=== PATIENT | male | born 1945 | race Caucasian/White ===

== ENCOUNTER 2024-10-19 23:20 | Inpatient (IN) | payer MEDICARE, SELFPAY ==
--- NOTE | ~2024-10-19 | XR_ITS ---
Portable chest x-ray Comparison: None Clinical History: Weakness Findings: Questionable minimal haziness left upper lobe. Lungs otherwise clear. Cardiomediastinal s ilhouette is unremarkable. Bones and soft tissues are unremarkable. Impression: Questionable minimal haziness left upper lobe. Correlate for possible pneumonia. Reviewed, dictated and finalized at [facility]. Impression: Questionable minimal haziness left upper lobe. Correlate for possible pneumonia .
--- NOTE | ~2024-10-19 | CT_ITS ---
CT head without contrast Indication: Altered mental status Technique: Serial scans were obtained through the brain without the administration of contrast. Dose reduction technique was used on this scan by utilizing automated exposure control and iterative recon struction technique. The dose-length product (DLP) was 756.67 mGy-cm. Findings: Questionable hyperdense left MCA sign. No parenchymal changes of acute infarct evident on t his exam. No intracranial hemorrhage or mass lesion. The ventricles and subarachnoid spaces are dila wero, consistent with mild to moderate atrophy. Low attenuation regions are seen within the periventr icular white matter bilaterally, likely representing changes from chronic microvascular ischemic dise ase. There is no evidence of edema, mass effect or midline shift. The visualized paranasal sinuses and mastoid air cells are clear. Impression: Questionable hyperdense left MCA sign. If there is concern for acute infarct, then CT angiogram or MR would be recommended for further evaluation. Correlate with clinical signs/symptoms. Atrophy and chronic white matter changes, as above. Reviewed, dictated and finalized at location . Impression: Questionable hyperdense left MCA sign. If there is concern for acute infarct, t hen CT angiogram or MR would be recommended for further evaluation. Correlate w ith clinical signs/symptoms. Atrophy and chronic white matter changes, as above.
--- NOTE | ~2024-10-19 | XR_ITS ---
Portable chest x-ray Comparison: 10/20/2024 Clinical History: Abnormal breathing Findings: There is mild interstitial prominence. No consolidation, effusion, or pneumothorax. Cardi omediastinal silhouette is stable. Bones and soft tissues are unremarkable. Impression: Mild diffuse interstitial prominence. Correlate for chronic interstitial disease or COPD change, vers us possibly mild interstitial edema. Reviewed, dictated and finalized at location . Impression: Mild diffuse interstitial prominence. Correlate for chronic interstitial diseas e or COPD change, versus possibly mild interstitial edema.
--- NOTE | ~2024-10-19 | US_ITS ---
EXAMINATION: US carotid duplex BI DATE: 10/20/2024 16:21 INDICATION: Cerebrovascular disease TECHNIQUE: Grayscale, color Doppler, and pulsed Doppler images of the cervical carotid arteries were obtained. The degree of vessel stenosis is placed in one of the following categories: normal, <50%, 5 0-69%, >=70% but less than near-occlusion, near-occlusion, or total occlusion. Note that percent sten osis relative to normal distal artery lumen diameter is indirectly measured from velocity measurement s as described by Chet, et al. Radiology 2003; [id number]:[id number]. Notes: Normal: Peak systolic velocity <125 centimeters/sec and no plaque <50%. Peak systolic velocity <125 ( EDV <40; ICA/CCA PSV ratio <2.0; used these factors only a tandem lesions or low cardiac output or co ntralateral disease) 50-69 %: PSV 125-230 (EDV 40-100; ratio 2-4) >= 70% but less than near occlusion: PSV greater than 230 (EDV > 100; ratio> 4.0) Near Occlusion: PSV that is variable; markedly narrowed lumen Occlusion: Absent flow on color/spectral Doppler and no lumen on noble scale. COMPARISON: None. FINDINGS: RIGHT: The right common carotid artery (CCA) peak systolic velocity (PSV) is 42 cm/s. The right internal car otid artery (ICA) PSV is 67 cm/s. The right ICA end-diastolic velocity (EDV) is 13 cm/s. The right IC A/CCA PSV ratio is 1.6. The external carotid artery (ECA) PSV is 125 cm/s. There is antegrade flow in the right vertebral artery. LEFT: The left CCA PSV is 52 cm/s. The left ICA PSV is 81 cm/s. The left ICA EDV is 14 cm/s. The left ICA/C CA PSV ratio is 1.5. The ECA PSV is 85 cm/s. There is antegrade flow in the left vertebral artery. IMPRESSION: 1. Less than 50% stenosis in the right internal carotid artery by sonographic criteria. 2. Less than 50% stenosis in the left internal carotid artery by sonographic criteria. Reviewed, dictated and finalized at location B. IMPRESSION: 1. Less than 50% stenosis in the right internal carotid artery by sonographic ana m antunez. 2. Less than 50% stenosis in the left internal carotid artery by sonographic kd santana.
--- NOTE | ~2024-10-19 | XR_ITS ---
Left wrist Technique: PA, oblique, lateral, and ulnar deviation views were obtained. Clinical History: Pain Findings: No acute fracture or dislocation is seen. Osseous alignment is anatomic. There is mild dege nerative changes at triscaphe joint and first CMC joint. Soft tissues are unremarkable. Impression: Mild degenerative change, as above. Reviewed, dictated and finalized at location . Impression: Mild degenerative change, as above.
--- NOTE | ~2024-10-19 | US_ITS ---
EXAMINATION: US renal BI DATE: 10/27/2024 19:49 INDICATION: BPH? TECHNIQUE: Multiple grayscale and Doppler ultrasound images of the kidneys were obtained. COMPARISON: None. FINDINGS: The right kidney measures 11.1 x 5.4 x 5.5 cm. The left kidney measures 11.1 x 6.4 x 6.0 cm. The kidn eys demonstrate normal parenchymal echogenicity. There is no hydronephrosis. The bladder is partially distended. Mendoza catheter in place. Prostate not well-visualized. IMPRESSION: Prostate not well visualized. Unremarkable renal sonogram findings. Reviewed, dictated and finalized at location K.
[2024-10-19 23:24] VITALS: BP 125/80; PULSE 79; RESP 16; TEMP 36.8; O2SAT 99
--- OUTSIDE RECORDS SUMMARY | 2024-10-20 01:28 | XMS_ITS | Encounter Summary ---
Author Organization [facility] Address [facility] [place] [address] Care Team Providers Care Aircraft Systems Technician Name Role Phone De Martines MD Primary Care Provider Unavailab emani Simpson MD, Evre Unavailable [phone] Mirza Sepulveda MD Unavailable [phone] Froylan Galvan MD Unavailable UnavailEvelyn Spicer NP Unavailable Unavailable Hernandez Martines MD Primary Care Provider [phone] Reason for Referral * (Routine) - Canceled Specialty Diagnoses / Procedures Referred By Contac t Referred To Contact Procedures OT eval and treat OT eval [place] [address] Phone: tel: fax: Referral ID Status Reason Start Date Expiration Date V isits Requested Visits Authorized [id number] Canceled 10/14/2024 10/14/2025 1 1 * (Routine) - Canceled Specialty Diagnoses / Procedures Referred By Contac t Referred To Contact Procedures PT eval and treat PT eval and treat [place] [address] Phone: tel: fax:[phone] Referral ID Status Reason Start Date Expiration Date V isits Requested Visits Authorized [id number] Canceled 10/14/2024 10/14/2025 1 1 Reason for Visit * Auth/Cert (Routine) Specialty Diagnoses / Procedures Referred By Contac t Referred To Contact Diagnoses Atrial fibrillation with RVR (CMS/HCC HHS/HCC) AFIB with RVR Procedures N/A Johan Oh MD [address] [place] [address] Phone: tel:[phone] fax: Referral ID Status Reason Start Date Expiration Date Visits Re quested Visits Authorized [id number] 1 1 Encounter Details Date Type Department Care Team (Late st Contact Info) Description 10/14/2024 12:58 PM CDT - 10/19/2024 9:13 PM CDT Hospital Encounter [facility] [place] [address] Johan Oh MD [address] [place] [address] [phone] (Work) Bhakti [place] [address] [phone] (Work) Irene Barrios MD [address] [place], [place] [id number] [phone] (Work) Discharge Disposition: Home with Home Health Care Social History Tobacco Use Types Packs/Day Years Used Date Smoking Tobacco: Former Smokeless Tobacco: Former Chew Alcohol Use Standard Drinks/Week Comments No 0 (1 standard drink = 0.6 oz pur e alcohol) Quit drinking in 1990 [facility] Utilities Answer Date Recorded In the past 12 months has e Dad[employer]hed, gas, oil, or water [employer] threatened to shut off services in your home? No 10/14/2024 Humiliation, Afraid, Rape, a nd Kick questionnaire Answer Date Recorded Within the last year, have y ou been afraid of your partner or ex-partner? Patient unable to answer 10/14/2024 Within the last year, have y ou been humiliated or emotionally abused in other ways by your partner or ex-partner? Patient unable to answer 10/14/2024 Within the last year, have y ou been kicked, hit, slapped, or otherwise physically hurt by your partner or ex-partner? Patient unable to answer 10/14/2024 Within the last year, have y ou been raped or forced to have any kind of sexual activity by your partner or ex-partner? Patient unable to answer 10/14/2024 Overall Financial Resource Strain (CARDIA) Answe r Date Recorded How hard is it for you to pa y for the very basics like food, housing, medical care, and heating? Not hard at all 10/14/2024 Hunger Vital Sign Answer Date Recorded Within the past 12 months, y ou worried that your food would run out before you got the money to buy more. Never true 10/15/19 25 Within the past 12 months, t he food you bought just didn't last and you didn't have money to get more. Never true 10/14/2024 PRAPARE - Transportation Answer Date Re corded In the past 12 months, has l ack of transportation kept you from medical appointments or from getting medications? No 02/2025 In the past 12 months, has l ack of transportation kept you from meetings, work, or from getting things needed for daily living? No 10/14/2024 Housing Stability Vital Sign Answer Afvian e Recorded In the last 12 months, was t here a time when you were not able to pay the mortgage or rent on time? No 10/14/2024 In the past 12 months, how m any times have you moved where you were living? 0 10/14/2024 At any time in the past [address] [facility], were you homeless or living in a half-way (including now)? No 10/14/2024 Sex and Gender Information Value Date Recorded Sex Assigned at Male 10/14/2024 1:18 PM CDT Legal Sex Male 6:56 PM CDT Gender Identity Not on file Sexual Orientation Not on file documented as of this encounter Last Filed Vital Signs Vital Sign Reading Time Taken Comments Blood Pressure 118/72 10/19/2024 7:00 PM CDT Pulse 92 10/19/2024 7:00 PM CDT Temperature 37.1 C (98.8 F) 10/19/2024 7:00 PM CDT Respiratory Rate 20 10/19/2024 7:00 PM CDT Oxygen Saturation 98% 10/19/2024 7:00 PM CDT Inhaled Oxygen Concentration - - Weight 93.9 kg (207 lb 0.2 oz) 10/19/2024 3:54 A M CDT Height 179.1 cm (5' 10.5 ) 10/16/2024 7:51 AM CD T Body Mass Index 29.28 10/16/2024 7:51 AM CDT documented in this encounter Functional Status * Question Answer Date of Assessment Author Status Do you have serious difficulty walking or climbing stairs? Yes 10/14/2024 2:09 PM CDT Luci Hurtado RN Ac tive * Question Answer Date of Assessment Author Status Do you have difficulty dressing or bathing? Yes 10/14/2024 2:09 PM CDT Luci Hurtado R N Active Because of a physical, mental, or emotional condition, do you have difficulty doing errands alone such as visiting a doctor's office or shopping? Yes 10/14/2024 2:09 PM CDT Luci Hurtado RN Act yolanda * Intimate Partner Violence Question Answer Date of Assessment Author Status Within the last year, have you been humiliated or emotionally abused in other ways by your partner or ex-partner? Patient unable to answer 10/14/2024 2:19 PM Luci Luong RN Active Within the last year, have you been afraid of your partner or ex-partner? Patient unable to answer 10/14/2024 2:19 PM Luci Luong RN Active Within the last year, have you been raped or forced to have any kind of sexual activity by your partner or ex-partner? Patient unable to answer 10/14/2024 2:19 PM CDT Hurtado, Luci L, RN Active Within the last year, have you been kicked, hit, slapped, or otherwise physically hurt by your partner or ex-partner? Patient unable to answer 10/14/2024 2:19 PM Luci Luong RN Active * Are you deaf or do you have serious difficulty hearing Answer Date of Assessment Author Status Yes 10/14/2024 2:09 PM Luci Luong RN Active * Are you blind or do you have serious difficulty seeing, even when wearing glasses? Answer Date of Assessment Author Status No 10/14/2024 2:09 PM Luci Luong RN Active * Do you have serious difficulty walking or climbing stairs? Answer Date of Assessment Author Status Yes 10/14/2024 2:09 PM Luci Luong RN Active * Do you have difficulty dressing or bathing? Answer Date of Assessment Author Status Yes 10/14/2024 2:09 PM Luci Luong RN Active * Because of a physical, mental, or emotional condition, do you have difficulty doing errands alone such as visiting a doctor's office or shopping? Answer Date of Assessment Author Status Yes 10/14/2024 2:09 PM Luci Luong RN Active * Question Answer Date of Assessment Author Status Are you deaf or do you have serious difficulty hearing Yes 10/14/2024 2:09 PM Luci Luong RN Act yolanda Are you blind or do you have serious difficulty seeing, even when wearing glasses? No 10/14/2024 2:09 PM Luci Luong RN Act yolanda * Calculated C-SSRS Risk Score (Lifetime/Recent) Answer Date of Assessment Author Status No Risk Indicated 10/14/2024 2:15 PM Willian Luong RN Active * [place] Suicide Severity Rating Scale (Screener/Recent Self-Report) Question Answer Date of Assessment Author Status 1. Wish to be (Past 1 Month) No 10/14/2024 2:15 PM Luci Luong RN Act yolanda 2. Non-Specific Active Suicidal Thoughts (Past 1 Month) No 10/14/2024 2:15 PM Luci Luong RN Act yolanda 6. Suicidal Behavior (Lifetime) No 10/14/2024 2:15 PM CDT Luci Hurtado RN Act yolanda documented as of this encounter Mental Status * Question Answer Entry Date Author Status Because of a physical, mental, or emotional condition, do you have serious difficulty concentrating, remembering, or making decisions? Yes 10/14/2024 2:09 PM CDT Luci Hurtado R N Active * Because of a physical, mental, or emotional condition, do you have serious difficulty concentrating, remembering, or making decisions? Answer Entry Date Author Status Yes 10/14/2024 2:09 PM CDT Luci Hurtado RN Active documented in this encounter Discharge Instructions * Attachments The following attachments cannot be sent through Care Everywhere. * Heart Failure Discharge Instructions, Adult (Bur[place]ian) * Atrial Fibrillation Discharge Instructions ([place]ian) documented in this encounter Medications at Time of Discharge digoxin (LANOXIN) 0.125 MG tabletIndication s:a fib Take 1 tablet (0.125 mg total) by mouth daily. Indications: a fib 30 tablet 10/20/2024 donepezil (ARICEPT) 10 MG TabIndications:d ementia Take 1 tablet (10 mg total) by mouth daily for 30 days. Indications: dementia 30 tablet 10/19/2024 5 furosemide (LASIX) 40 MG tabletIndication s:CHF Take 1 tablet (40 mg total) by mouth daily for 30 days. Indications: CHF 30 tablet 10/20/2024 5 metoprolol tartrate (LOPRESSOR) 100 MG tabletIndication s:chf; HTN, A fib Take 1 tablet (100 mg total) by mouth 2 (two) times daily for 30 days. Indications: chf; HTN, A fib 60 tablet 10/19/2024 5 QUEtiapine (SEROQUEL) 25 MG tabletIndication s:dementia Take 1 tablet (25 mg total) by mouth nightly at bedtime for 30 days. Indications: dementia 30 tablet 10/19/2024 5 spironolactone (ALDACTONE) 25 MG tabletIndication s:chf Take 1 tablet (25 mg total) by mouth daily for 30 days. Indications: chf 30 tablet 10/20/2024 5 tamsulosin (FLOMAX) 0.4 MG CapIndications:u rinary retention Take 1 capsule (0.4 mg total) by mouth nightly for 30 days. Indications: urinary retention 30 capsule 10/19/2024 documented as of this encounter Progress Notes * Regan Mitchell RN - 10/19/2024 9:09 PM CDT EMS arrived. Patient discharged. [id number]-yo-[id number] informed. * Irene Barrios MD - 10/19/2024 10:43 AM CDT Hospitalist Daily Progress Note Subjective Patient seen and evaluated earlier this morning. Patient is alert and oriented to himself and year answers yes or no questions but is hard of hearing. Sodium 132, white cell count down to 7.97. Patient denies any pain currently or shortness of breath. Objective Filed Vitals: 10/18/24 1954 10/18/24 2313 10/19/24 0354 10/19/24 0821 BP: 117/84 124/83 132/80 114/83 Pulse: 94 74 83 95 Resp: 17 18 18 10 Temp: 99.5 ??F (37.5 ??C) 98.2 ??F (36.8 ??C) 98 ??F (36.7 ??C) 97.7 ??F (36.5 ??C) TempSrc: Oral Axillary Oral Oral SpO2: 97% 91% 91% 95% Weight: 93.9 kg (207 lb 0.2 oz) Height: Physical Exam: -GENERAL: No acute distress, breathing comfortably on room air. -EYES: Extraocular movements intact -ENT: Neck supple, Septum is midline. -LUNG: Clear to auscultation bilaterally, No wheezes, No crackles on room air -CVS: Regular rate rhythm, S1 and S2 normal -ABDOMEN: Soft, nondistended, Nontender, Bowel sounds observed -EXT: decreasing edema and erythema, left parks wound improved -NEURO: Alert, awake, oriented x2 to self and year, hard of hearing, sensation intact, motor 5/5 Intake/Output 24H Total: Intake/Output Summary (Last 24 hours) at 10/19/2024 1043 Last data filed at 10/19/2024 0942 Gross per 24 hour Intake 340 ml Output 3300 ml Net -2960 ml Medication digoxin 0.125 mg Oral Daily donepezil 10 mg Oral Daily furosemide 40 mg Oral Daily heparin (porcine) 5,000 Units Subcutaneous BID metoprolol tartrate 100 mg Oral BID QUEtiapine 25 mg Oral Nightly at bedtime senna-docusate 1 tablet Oral Nightly at bedtime spironolactone 25 mg Oral Daily tamsulosin 0.4 mg Oral nightly acetaminophen, albuterol sulfate HFA, ondansetron, polyethylene glycol Labs: Recent Labs Lab 10/14/24 1411 10/15/24 0612 10/16/24 0700 10/17/24 0644 10/18/24 0641 10/19/24 0647 WBC 11.59* 10.71 8.96 8.22 10.05 7.97 RBC 5.71 5.46 5.40 5.72 5.93 6.14* HGB 16.5 15.7 15.7 16.2 16.9 17.4 HCT 49.7 46.6 46.4 47.9 49.9 52.0 MCV 87.0 85.3 85.9 83.7 84.1 84.7 MCH 28.9 28.8 29.1 28.3 28.5 28.3 MCHC 33.2 33.7 33.8 33.8 33.9 33.5 PLT 189 171 182 209 254 271 RDW 15.0* 15.0* 14.7* 14.6* 14.5 14.6* MPV 10.5 10.9 10.2 10.5 10.2 10.3 PERNEU 80.1 75.2 72.1 69.2 68.7 65.0 PERLYM 8.5 11.8 12.8 14.7 14.6 16.4 PERMON 10.2 10.7 12.3 12.8 14.4 14.9 NEUC 9.27* 8.06* 6.46 5.69 6.90 5.17 LYMC 0.99* 1.26 1.15 1.21 1.47 1.31 MONOC 1.18* 1.15* 1.10* 1.05* 1.45* 1.19* EOSC 0.04 0.15 0.16 0.18 0.14 0.20 BASOC 0.04 0.04 0.03 0.05 0.06 0.05 DTYPE AUTOMATED DIFFERENTIAL AUTOMATED DIFFERENTIAL AUTOMATED DIFFERENTIAL AUTOMATED DIFFERENTIAL AUTOMATED DIFFERENTIAL AUTOMATED DIFFERENTIAL Recent Labs Lab 10/14/24 1411 10/15/24 0612 10/16/24 0700 10/17/24 0644 10/18/24 0641 10/19/24 0647 NA 135* 134* 136 131* 128* 132* K 3.6 3.4* 4.0 4.1 4.3 4.3 CL 96* 99 102 99 96* 100 CO2 31.5 26.4 27.1 25.3 25.8 26.9 AGAP 7.5 8.6 6.9 6.7 6.2 5.1 BUN 21* 24* 19* 19* 22* 21* CR 1.22 1.13 0.92 0.82 0.90 0.76 BUNCREATININ 17.2 21.2 20.6 23.2 24.6 27.6* GLU 122* 121* 110* 110* 116* 113* CA 8.4* 8.7 8.4* 8.3* 8.5 8.6 TP 6.4 6.0* 5.7* 6.0* -- 6.2* ALB 3.0* 2.7* 2.4* 2.3* -- 2.4* TBIL 3.8* 2.9* 2.9* 2.8* -- 1.4* ALKP 50 43* 43* 48* -- 71 AST 34 22 18 20 -- 21 ALT 21 18 17 19 -- 21 Recent Labs Lab 10/14/24 1411 10/15/24 0612 CHOL -- 100 TRI -- 76 HDL -- 31* LDL -- 54 HGBA1C -- 5.2 TSH 1.280 -- No results for input(s): APTT , INR , PTT in the last 168 hours. Recent Labs Lab 10/14/24 1411 10/14/24 1935 TROP 143* 283* Recent Labs Lab 10/14/24 1406 10/18/24 0641 10/19/24 0647 PROCT 0.08 <0.05 <0.05 No results for input(s): PH , PCO2 , PO2 , [id number] , BICARBWB , BASEDEFICIT , BASEEXCESS in the last 168 hours. No results found for this or any previous visit. X-Ray Radiology Results (Last 30 days) 10/14/24 1511 XR CHEST PORTABLE Final result Impression: IMPRESSION: CHF Ordered By: LLOYD CHILD Interpreted By: Girish Ovalle MD, 10/14/2024 3:15 PM Assessment & Plan: Atrial fibrillation with RVR Prior h/o pAF. Has consistently refused anticoagulation Unable to find EKG from OSH, he received metoprolol and diltiazem. Cardiology consulted. Recs appreciated. BB resumed Monitor on tele. -10/18: HR stable now. Now on digoxin 0.125 mg p.o. daily metoprolol 100 mg twice daily, switched from IV Lasix to oral Lasix today, cardiology/EP signed off -10/19: Heart rate stable now. On oral Lasix and oral metoprolol and oral digoxin. Cardiology/EP signed off and cleared for discharge. Acute on chronic HFrEF Patient appeared euvolemic on admission, but c/f CHF at OSH. OSH: Pro-BNP 3960 CXR 10/13 pulmonary edema vs PNA increased b/l pleural effusions. Cardiology consulted as above Continue IV Lasix. Monitor BMP Strict I/O and daily weights -10/18: HR stable now. Now on digoxin 0.125 mg p.o. daily metoprolol 100 mg twice daily, switched from IV Lasix to oral Lasix today, cardiology/EP signed off -10/19: Heart rate stable now. On oral Lasix and oral metoprolol and oral digoxin. Cardiology/EP signed off and cleared for discharge. NSTEMI type 2 Cardiology consulted 2/2 above Tele -10/18: HR stable now. Now on digoxin 0.125 mg p.o. daily metoprolol 100 mg twice daily, switched from IV Lasix to oral Lasix today, cardiology/EP signed off -10/19: Heart rate stable now. On oral Lasix and oral metoprolol and oral digoxin. Cardiology/EP signed off and cleared for discharge. SIRS Possible cellulitis vs PNA MRSA screen negative Last doses of doxycycline, IV Zosyn this morning, day 5 out of 5 today. Monitor for toxicity No further temperature elevations Wound care Improved Acute metabolic encephalopathy History of dementia 2/2 above Patient needed haldol and ativan at OSH CT head and C-spine imaging at outside facility negative for any acute abnormality but did show evidence of mild chronic microangiopathic gliosis Reorient as needed Seroquel started. Monitor Per family dementia is worsening. Continue home meds. Outpatient workup and follow-up with primary care physician and [facility] neurology as outpatient ?possible PNA OSH CXR with pulmonary edema vs PNA. Received vanc and Zosyn at OSH to cover for HCAP. As above Supportive care with expectorants and antitussives Sputum culture if able IS/acapella Last doses of doxycycline, IV Zosyn this morning, day 5 out of 5 today. Improved, procalcitonin negative Hyperbilirubinemia Mostly indirect hyperbilirubinemia Likely 2/2 congestive hepatopathy Initially bilirubin 3.8, now trended down all the way down to 1.4 Improving Monitor Acute on chronic hyponatremia Monitor with diuresis Now switching from IV Lasix to p.o. Lasix today -10/18: Sodium 128 -10/19: After switching to oral Lasix, sodium back up to 132 monitor Left radial fracture Placed in splint at OSH. Will need ortho referral outpatient. Pain control PRN. Frequent falls May need placement PT/OT eval Thoracic aortic aneurysm Per last CTA in 2020 measuring 4.1 cm Dementia Per family worsening. Continue home meds. Outpatient workup and follow-up with primary care physician and [facility] and neurology as outpatient Urinary retention Noted at OSH Continue Arias cath Start Flomax Consider voiding trial in 1 week as outpatient with urology Hypokalemia Potassium now 4.3 Monitor Other chronic conditions which adds to complexity of care: anxiety, anxiety, BPH, asthma, GERD. Continue home medications unless otherwise indicated. SDOH that would limit/prevent patient from receiving appropriate care/follow-up: Rural living VTE ppx: Heparin sq Code status: Full Surrogate decision maker/POA: Son Disposition: Medically stable for discharge today with instructions to follow-up with primary care physician as outpatient later on this week as well as outpatient follow-up with urology within 1 to 2 weeks for voiding trial and urinary retention evaluation as well as Outpatient workup and follow-up with primary care physician and [facility] and neurology as outpatient. SW/CM working on final disposition, possible home health care I personally attempted to call Fortino Salazar who is listed as the family point of contact via the phone number provided in EMR ([phone]). Attempted multiple times in the morning and afternoon, even with hospital microfilm camera operator assistance. No answer on all attempts. Other changes to plan of care to be made based on progress during hospitalization. All plans discussed with RN and patient. They are agreeable with plan and voiced understanding. This note was dictated with [employer] medical dictation software; misspellings, punctuation errors, omitted words or dictation variances may occur. Irene Barrios MD 10/19/2024 10:43 AM * Regan Mitchell RN - 10/19/2024 12:38 AM CDT Problem: Reduced risk for falls/injury Goal: Reduced Risk of Confusion (Acute vs Chronic) Outcome: Progressing Goal: Reduced Risk of Altered Elimination Outcome: Progressing Goal: Reduced Risk of Dizziness/Vertigo/Balance Outcome: Progressing Problem: Discharge Planning Goal: Knowledge of discharge instructions Outcome: Progressing Problem: Discharge Planning Goal: Knowledge of discharge plan Outcome: Progressing Problem: Activity Intolerance Goal: Improved activity tolerance Outcome: Progressing Goal: Able to perform prescribed physical activity Outcome: Progressing * Quinn Martinez PTA - 10/18/2024 12:10 PM CDT 10/18/24 0947 Therapy Visit Ordering Provider Adriano PT Received On 10/17/24 Subjective Room A409: Patient resting in bed upon entry to room. Patient is agreeable to work with therapy. RN okay for therapy to treat patient. Reason for admission AF/RVR, L radial fx Relevant Comorbidities/ Personal Factors to PT PMHX: anxiety, BPH, paroxysmal A- fib, ashtma, GERD, TAA, CAD Verified Two Patient Identifiers Yes Patient consents to therapy Yes Acute Inpatient PT Time Calculation PT Start Time 0947 PT Stop Time 1005 PT Time Calculation (min) 18 min Precautions Weight Bearing Status LUE;NWB Arm Brace/Sling Applied Yes (left wirst immobilizer) General Precautions Bed Alarm;Chair Alarm;Fall Risk;Hard of Hearing PPE Used Gloves Instructed on Precautions Yes;Needs reinforcement and education Skin Integrity L radial fracture with brace donned, L parks dressing Activity Tolerance Endurance Tolerates 10 - 20 min activity with rests Endurance Quality Fair Limiting Factors to Endurance Acute deconditioning;Decreased alertness;Fatigue;Shortness of breath Cognition Overall Cognitive Status Impaired Orientation Level Oriented to person Following Commands Follows one step commands with repetition Bed Mobility Supine to Sit Other (Attempted to sit EOB, but inthe middle of performing transfer patient refuses stating that he is having too much patient and actively starts resisting AUDIO VISUAL ARTS DIRECTOR. Patient positioned back in supine position.) Exercises Ankle Pumps x15 Quad Sets x10 Heelslides x10 Other (Comment) Only able to perform a few exercises at patient stops performing exercises after a few reps and had difficulty with following cues when performing exercises. Patient/Family Training Bed Mobility x Precautions x Exercise Program x Discharge Recommendation PT Recommendation PT at long-term Facility PT Equipment Recommended To Be Determined Plan PT Treatments/Interventions Gait Training;Therapeutic Exercises;Therapeutic Activities;Neuromuscular re-education Progress Slow progress, cognitive deficits PT Frequency 6 times/week PT plan for next session gait training, ther-ex, ther-activ, neuro re-ed If this is the last treatment note,it will serve as the discharge summary Yes End of Session End of Session Safety Bed alarm set/activated;Call light within reach;Nursing aware of session * Irene Barrios MD - 10/18/2024 11:39 AM CDT Hospitalist Daily Progress Note Subjective Patient seen and evaluated earlier this morning. Patient is alert and oriented to himself answers yes or no questions but is hard of hearing. Sodium 128, white cell count up to 10. Patient denies anypain currently or shortness of breath. Switch to oral Lasix today. Objective Filed Vitals: 10/17/24195710/17/248 10/18/24 0325 10/18/24 0740 BP: (!) 144/92 131/76 116/86 129/80 Pulse: 77 86 78 95 Resp: 18 18 18 13 Temp: 99.1 ??F (37.3 ??C) 98.6 ??F (37 ??C) 98.4 ??F (36.9 ??C) 97.9 ??F (36.6 ??C) TempSrc: Oral Oral Oral Oral SpO2: 99% 98% 99% 98% Weight: Height: Physical Exam: -GENERAL: No acute distress, breathing comfortably on room air. -EYES: Extraocular movements intact -ENT: Neck supple, Septum is midline. -LUNG: Clear to auscultation bilaterally, No wheezes, No crackles on room air -CVS: Regular rate rhythm, S1 and S2 normal -ABDOMEN: Soft, nondistended, Nontender, Bowel sounds observed -EXT: decreasing edema and erythema, left parks wound improved -NEURO: Alert, awake, oriented x1 to self, hard of hearing Intake/Output 24H Total: Intake/Output Summary (Last 24 hours) at 10/18/2024 1140 Last data filed at 10/18/2024 0835 Gross per 24 hour Intake 660 ml Output 1675 ml Net -1015 ml Medication digoxin 0.125 mg Oral Daily donepezil 10 mg Oral Daily doxycycline hyclate 100 mg Oral 2 times per day furosemide 40 mg Oral Daily heparin (porcine) 5,000 Units Subcutaneous BID metoprolol tartrate 100 mg Oral BID piperacillin-tazobactam 3.375 g Intravenous Q8H QUEtiapine 25 mg Oral Nightly at bedtime senna-docusate 1 tablet Oral Nightly at bedtime spironolactone 25 mg Oral Daily tamsulosin 0.4 mg Oral nightly acetaminophen, albuterol sulfate HFA, ondansetron, polyethylene glycol Labs: Recent Labs Lab 10/14/24 1411 10/15/24 0612 10/16/24 0700 10/17/24 0644 10/18/24 0641 WBC 11.59* 10.71 8.96 8.22 10.05 RBC 5.71 5.46 5.40 5.72 5.93 HGB 16.5 15.7 15.7 16.2 16.9 HCT 49.7 46.6 46.4 47.9 49.9 MCV 87.0 85.3 85.9 83.7 84.1 MCH 28.9 28.8 29.1 28.3 28.5 MCHC 33.2 33.7 33.8 33.8 33.9 PLT 189 171 182 209 254 RDW 15.0* 15.0* 14.7* 14.6* 14.5 MPV 10.5 10.9 10.2 10.5 10.2 PERNEU 80.1 75.2 72.1 69.2 68.7 PERLYM 8.5 11.8 12.8 14.7 14.6 PERMON 10.2 10.7 12.3 12.8 14.4 NEUC 9.27* 8.06* 6.46 5.69 6.90 LYMC 0.99* 1.26 1.15 1.21 1.47 MONOC 1.18* 1.15* 1.10* 1.05* 1.45* EOSC 0.04 0.15 0.16 0.18 0.14 BASOC 0.04 0.04 0.03 0.05 0.06 DTYPE AUTOMATED DIFFERENTIAL AUTOMATED DIFFERENTIAL AUTOMATED DIFFERENTIAL AUTOMATED DIFFERENTIAL AUTOMATED DIFFERENTIAL Recent Labs Lab 10/14/24 1411 10/15/24 0612 10/16/24 0700 10/17/24 0644 10/18/24 0641 NA 135* 134* 136 131* 128* K 3.6 3.4* 4.0 4.1 4.3 CL 96* 99 102 99 96* CO2 31.5 26.4 27.1 25.3 25.8 AGAP 7.5 8.6 6.9 6.7 6.2 BUN 21* 24* 19* 19* 22* CR 1.22 1.13 0.92 0.82 0.90 BUNCREATININ 17.2 21.2 20.6 23.2 24.6 GLU 122* 121* 110* 110* 116* CA 8.4* 8.7 8.4* 8.3* 8.5 TP 6.4 6.0* 5.7* 6.0* -- ALB 3.0* 2.7* 2.4* 2.3* -- TBIL 3.8* 2.9* 2.9* 2.8* -- ALKP 50 43* 43* 48* -- AST 34 22 18 20 -- ALT 21 18 17 19 -- Recent Labs Lab 10/14/24 1411 10/15/24 0612 CHOL -- 100 TRI -- 76 HDL -- 31* LDL -- 54 HGBA1C -- 5.2 TSH 1.280 -- No results for input(s): APTT , INR , PTT in the last 168 hours. Recent Labs Lab 10/14/24 1411 10/14/24 1935 TROP 143* 283* Recent Labs Lab 10/14/24 1406 PROCT 0.08 No results for input(s): PH , PCO2 , PO2 , [id number] , BICARBWB , BASEDEFICIT , BASEEXCESS in the last 168 hours. No results found for this or any previous visit. X-Ray Radiology Results (Last 30 days) 10/14/24 1511 XR CHEST PORTABLE Final result Impression: IMPRESSION: CHF Ordered By: LLOYD CHILD Interpreted By: Girish Ovalle MD, 10/14/2024 3:15 PM Assessment & Plan: Atrial fibrillation with RVR Prior h/o pAF. Has consistently refused anticoagulation Unable to find EKG from OSH, he received metoprolol and diltiazem. Cardiology consulted. Recs appreciated. BB resumed Monitor on tele. -12: HR stable now. Now on digoxin 0.125 mg p.o. daily metoprolol 100 mg twice daily, switched from IV Lasix to oral Lasix today, cardiology/EP signed off Acute on chronic HFrEF Patient appeared euvolemic on admission, but c/f CHF at OSH. OSH: Pro-BNP 3960 CXR 10/13 pulmonary edema vs PNA increased b/l pleural effusions. Cardiology consulted as above Continue IV Lasix. Monitor BMP Strict I/O and daily weights -12: HR stable now. Now on digoxin 0.125 mg p.o. daily metoprolol 100 mg twice daily, switched from IV Lasix to oral Lasix today, cardiology/EP signed off NSTEMI type 2 Cardiology consulted 2/2 above Tele -12: HR stable now. Now on digoxin 0.125 mg p.o. daily metoprolol 100 mg twice daily, switched from IV Lasix to oral Lasix today, cardiology/EP signed off SIRS Possible cellulitis vs PNA MRSA screen negative Continue doxycycline, IV Zosyn. Monitor for toxicity Mild temp elevations noted Wound care Acute metabolic encephalopathy History of dementia 2/2 above Patient needed haldol and ativan at OSH Reorient as needed Seroquel started. Monitor Per family dementia is worsening. Continue home meds. Outpatient workup and follow-up ?possible PNA OSH CXR with pulmonary edema vs PNA. Received vanc and Zosyn at OSH to cover for HCAP. As above Supportive care with expectorants and antitussives Sputum culture if able IS/acapella 1 more day of IV antibiotics, then discontinue tomorrow. Hyperbilirubinemia Mostly indirect hyperbilirubinemia Likely 2/2 congestive hepatopathy Last bilirubin 2.8 Monitor Hyponatremia Monitor with diuresis Now switching from IV Lasix to p.o. Lasix today Sodium now down to 128 Monitor Left radial fracture Placed in splint at OSH. Will need ortho referral outpatient. Pain control PRN. Frequent falls May need placement PT/OT eval Thoracic aortic aneurysm Per last CTA in 2020 measuring 4.1 cm Dementia Per family worsening. Continue home meds. Outpatient workup and follow-up Urinary retention Noted at OSH Continue Arias cath Start Flomax Consider voiding trial in 1 week as outpatient with urology Hypokalemia Potassium now 4.3 Monitor Other chronic conditions which adds to complexity of care: anxiety, anxiety, BPH, asthma, GERD. Continue home medications unless otherwise indicated. SDOH that would limit/prevent patient from receiving appropriate care/follow-up: Rural living VTE ppx: Heparin sq Code status: Full Surrogate decision maker/POA: Son Disposition: 1 more day of IV antibiotics, then discontinue tomorrow. Watch sodium level and bilirubin. Watch mentation. May be medically stable for discharge potentially tomorrow, but SW/CM working on disposition Other changes to plan of care to be made based on progress during hospitalization. All plans discussed with RN and patient. They are agreeable with plan and voiced understanding. This note was dictated with [email or web address] medical dictation software; misspellings, punctuation errors, omitted words or dictation variances may occur. Irene Barrios MD 10/18/2024 11:40 AM * Regan Mitchell RN - 10/18/2024 2:49 AM CDT Problem: Reduced risk for falls/injury Goal: Reduced Risk of Confusion (Acute vs Chronic) Outcome: Progressing Goal: Reduced Risk of Symptomatic Depression Outcome: Progressing Goal: Reduced Risk of Altered Elimination Outcome: Progressing Goal: Reduced Risk of Dizziness/Vertigo/Balance Outcome: Progressing Problem: Discharge Planning Goal: Knowledge of discharge instructions Outcome: Progressing Problem: Skin integrity, Impaired-wound Goal: Evidence of wound healing Outcome: Progressing Problem: Discharge Planning Goal: Knowledge of discharge instructions Outcome: Progressing * Jaqueline Singh PTA - 10/17/2024 2:00 PM CDT 10/17/24 1400 Therapy Visit Ordering Provider Adriano PT Received On 10/17/24 Subjective [id number]; Attempted to see pt and encouraged pt to get out of bed and pt stated My goal is not listening to you and pt refused to sit on the EOB nor stand up and will follow up later time and date Reason for admission AF/RVR, L radial fx Relevant Comorbidities/ Personal Factors to PT PMHX: anxiety, BPH, paroxysmal A- fib, ashtma, GERD, TAA, CAD * Gaviota Walden - 10/17/2024 12:15 PM CDT 10/17/24 1215 Forms Reinforcement Important Message from Medicare (Subsequent IMM) Signed Copy delivered CM Weaver Dobby Loom contacted patient's listed family per CM instruction. Patient's [id number] gave verbal signature over the phone. Second copy of IMM will be left in patient's room. * Izabela Gaitan LCSW - 10/17/2024 11:45 AM CDT 10/17/24 1144 Interdisciplinary Group Conference Team Members Present Physician;Case/Care management;Nursing;[employer] Consultant Physician present for group conference Arjun Patient Current Status Paient current status Inpatient Barriers to Discharge Inpatient Review Barriers to Discharge Inpatient No Barrier- Medical Milestone in Process Patient expects to be discharged to Patient expects to be discharged to: Home with home health care Per discussion at rounds pt likely ready tomorrow. This SW updated [facility] regarding dc timing. * Bhakti Díaz MD - 10/17/2024 11:03 AM CDT Hospitalist Daily Progress Note Sky Hurtado is a 79-year-old male with a past medical history significant for BPH, paroxysmal afib, asthma, GERD, TAA, CAD, who presented with atrial fibrillation with RVR. Subjective Patient seen and examined earlier in the day Doing alright No new issues to report currently Remains on iv lasix Cardiology following Objective Filed Vitals: 10/17/24 0028 10/17/24 0339 10/17/24 0758 10/17/24 1100 BP: 111/89 131/89 126/79 99/76 Pulse: 77 78 (!) 51 89 Resp: 19 12 (!) 3 20 Temp: 97.5 ??F (36.4 ??C) 98.2 ??F (36.8 ??C) 98.1 ??F (36.7 ??C) 98.1 ??F (36.7 ??C) TempSrc: Oral Oral Oral Oral SpO2: 95% 100% 91% 95% Weight: 97.5 kg (214 lb 15.2 oz) Height: Intake/Output 24H Total: Intake/Output Summary (Last 24 hours) at 10/17/2024 1103 Last data filed at 10/17/2024 1043 Gross per 24 hour Intake 360 ml Output 4050 ml Net -3690 ml Physical Exam: -GENERAL: No acute distress -HEAD: Normocephalic, Atraumatic -EYES: Extraocular movements intact -LUNGS: Effort normal, Clear to auscultation bilaterally, No wheezes, No crackles, No ronchi -CVS: Regular rate -EXT: decreasing edema and erythema, left parks wound improved -NEURO: Awake, alert, oriented to person at least, [place], No acute gross neuro deficits Medications digoxin 0.125 mg Oral Daily donepezil 10 mg Oral Daily doxycycline hyclate 100 mg Oral 2 times per day furosemide 40 mg Intravenous Daily heparin (porcine) 5,000 Units Subcutaneous BID metoprolol tartrate 100 mg Oral BID piperacillin-tazobactam 3.375 g Intravenous Q8H QUEtiapine 25 mg Oral Nightly at bedtime senna-docusate 1 tablet Oral Nightly at bedtime spironolactone 25 mg Oral Daily tamsulosin 0.4 mg Oral nightly acetaminophen, albuterol sulfate HFA, ondansetron, polyethylene glycol Labs, Imaging, Other Studies Recent Labs Lab 10/14/24141010/15/2461110/16/24 0710/17/24 0644 WBC 11.59* 10.71 8.96 8.22 RBC 5.71 5.46 5.40 5.72 HGB 16.5 15.7 15.7 16.2 HCT 49.7 46.6 46.4 47.9 MCV 87.0 85.3 85.9 83.7 MCH 28.9 28.8 29.1 28.3 MCHC 33.2 33.7 33.8 33.8 PLT 189 171 182 209 RDW 15.0* 15.0* 14.7* 14.6* MPV 10.5 10.9 10.2 10.5 PERNEU 80.1 75.2 72.1 69.2 PERLYM 8.5 11.8 12.8 14.7 PERMON 10.2 10.7 12.3 12.8 NEUC 9.27* 8.06* 6.46 5.69 LYMC 0.99* 1.26 1.15 1.21 MONOC 1.18* 1.15* 1.10* 1.05* EOSC 0.04 0.15 0.16 0.18 BASOC 0.04 0.04 0.03 0.05 DTYPE AUTOMATED DIFFERENTIAL AUTOMATED DIFFERENTIAL AUTOMATED DIFFERENTIAL AUTOMATED DIFFERENTIAL Recent Labs Lab 10/14/24 14110/15/2461110/16/24 0710/17/24 0644 NA 135* 134* 136 131* K 3.6 3.4* 4.0 4.1 CL 96* 99 102 99 CO2 31.5 26.4 27.1 25.3 AGAP 7.5 8.6 6.9 6.7 BUN 21* 24* 19* 19* CR 1.22 1.13 0.92 0.82 BUNCREATININ 17.2 21.2 20.6 23.2 GLU 122* 121* 110* 110* CA 8.4* 8.7 8.4* 8.3* TP 6.4 6.0* 5.7* 6.0* ALB 3.0* 2.7* 2.4* 2.3* TBIL 3.8* 2.9* 2.9* 2.8* ALKP 50 43* 43* 48* AST 34 22 18 20 ALT 21 18 17 19 Recent Labs Lab 10/14/24 1411 10/15/24 0612 CHOL -- 100 TRI -- 76 HDL -- 31* LDL -- 54 HGBA1C -- 5.2 TSH 1.280 -- No results for input(s): APTT , INR , PTT in the last 168 hours. Recent Labs Lab 10/14/24 1411 10/14/24 1935 TROP 143* 283* Recent Labs Lab 10/14/24 1406 PROCT 0.08 No results for input(s): PH , PCO2 , PO2 , [id number] , BICARBWB , BASEDEFICIT , BASEEXCESS in the last 168 hours. No results found for this or any previous visit. Assessment & Plan Atrial fibrillation with RVR Prior h/o pAF. Has consistently refused anticoagulation Unable to find EKG from OSH, he received metoprolol and diltiazem. Cardiology consulted. Recs appreciated. BB resumed Monitor on tele. I discussed plan of care with Cardiology today Acute on chronic HFrEF Patient appeared euvolemic on admission, but c/f CHF at OSH. OSH: Pro-BNP 3960 CXR 10/13 pulmonary edema vs PNA increased b/l pleural effusions. Cardiology consulted as above Continue IV Lasix. Monitor BMP Strict I/O and daily weights Remains on iv lasix NSTEMI type 2 Cardiology consulted 2/2 above Tele SIRS Possible cellulitis vs PNA MRSA screen negative Continue doxycycline, IV Zosyn. Monitor for toxicity Mild temp elevations noted Wound care Acute metabolic encephalopathy 2/2 above Patient needed haldol and ativan at OSH Reorient as needed Seroquel started. Good response noted so far. Monitor ?possible PNA OSH CXR with pulmonary edema vs PNA. Received vanc and Zosyn at OSH to cover for HCAP. As above Supportive care with expectorants and antitussives Sputum culture if able IS/acapella Hyperbilirubinemia Mostly indirect hyperbilirubinemia Likely 2/2 congestive hepatopathy Monitor Hyponatremia Monitor with diuresis Left radial fracture Placed in splint at OSH. Will need ortho referral outpatient. Pain control PRN. Frequent falls May need placement PT/OT eval Thoracic aortic aneurysm Per last CTA in 2020 measuring 4.1 cm Dementia Per family worsening. Continue home meds. Urinary retention Noted at OSH Start Flomax Consider voiding trial in 1 week Hypokalemia Replete Monitor Other chronic conditions which adds to complexity of care: anxiety, anxiety, BPH, asthma, GERD. Continue home medications unless otherwise indicated. SDOH that would limit/prevent patient from receiving appropriate care/follow-up: Rural living VTE ppx: Heparin Code status: Full Surrogate decision maker/POA: Son ADMISSION STATUS: Inpatient BHAKTI DÍAZ MD * Marcie Tanner RN - 10/17/2024 3:24 AM CDT Problem: Reduced risk for falls/injury Goal: Reduced Risk for Falls/Injury Outcome: Progressing Goal: Reduced Risk of Confusion (Acute vs Chronic) Outcome: Progressing Goal: Reduced Risk of Symptomatic Depression Outcome: Progressing Goal: Reduced Risk of Altered Elimination Outcome: Progressing Problem: Discharge Planning Goal: Knowledge of discharge instructions Outcome: Progressing Problem: Pain control/comfort Goal: Promote pain control/comfort Outcome: Progressing Problem: Skin integrity, Impaired-wound Goal: Absence of new skin breakdown Outcome: Progressing Goal: Evidence of wound healing Outcome: Progressing Problem: Moisture associated skin impairment Goal: Reduce moisture exposure Outcome: Progressing Problem: Pain control/comfort Goal: Promote pain control/comfort Outcome: Progressing Problem: Infection - Risk of, Urinary Catheter-Associated Urinary Tract Infection Goal: Absence of Urinary Catheter Associated Urinary Tract (UTI) Infection Signs and Symptoms Outcome: Progressing Problem: Activity Intolerance Goal: Improved activity tolerance Outcome: Progressing * Luci Helms RN - 10/16/2024 2:52 PM CDT 10/16/24 1451 Interdisciplinary Group Conference Team Members Present Physician;Case/Care management;Nursing;Pharmacy Physician present for group conference ADRIANO Patient Current Status Paient current status Inpatient Barriers to Discharge Inpatient Review Barriers to Discharge Inpatient Other (Comment) Other follow up (Comment) IV ABX LASIX 40MG/Q12H DOXYCYCLINE ZOSYN Patient expects to be discharged to Patient expects to be discharged to: Home with home health care * Luci Helms RN - 10/16/2024 2:45 PM CDT DISCHARGE PLANNING Spoke with Geni, daughter in law about discharge plan- She and patient's son have agreed that he will come to their home, she asked about home health- canget that order for her- she asked about a bath aide Told her that I can send to [facility] as I know theyhave CNAs and they do come to her area [address] [place] [address] Referral sent to [facility] She is going to get a recliner and all new clothes for him. She asked if he can be brought home by Ambulance as he cannot get into her vehicle. Patient has dementia - She also asked about his fractured arm if they had put a cast on it- told her when I was there it was a black brace- she stated that at [facility] they said that it needed to be casted. Message sent to provider-Dr. Oh. * Johan Oh MD - 10/16/2024 1:40 PM CDT Hospitalist Daily Progress Note Sky Hurtado is a 79-year-old male with a past medical history significant for BPH, paroxysmal afib, asthma, GERD, TAA, CAD, who presented with atrial fibrillation with RVR. Subjective Patient sitting up in bed. He denies left wrist pain. He reports that his legs are feeling better. Supplemental hx obtained from RN. Patient mildly agitated this AM but was able to be redirected. Objective Filed Vitals: 10/16/24 0419 10/16/24 0726 10/16/24 0751 10/16/24 1056 BP: (!) 125/95 (!) 159/98 110/75 Pulse: (!) 111 (!) 120 96 Resp: 17 Temp: 97.7 ??F (36.5 ??C) 100 ??F (37.8 ??C) 97.7 ??F (36.5 ??C) TempSrc: Oral Oral Oral SpO2: 98% 92% 98% Weight: Height: 1.791 m (5' 10.5 ) Intake/Output 24H Total: Intake/Output Summary (Last 24 hours) at 10/16/2024 1423 Last data filed at 10/16/2024 1026 Gross per 24 hour Intake 600 ml Output 1451 ml Net -851 ml Physical Exam: -GENERAL: No acute distress -HEAD: Normocephalic, Atraumatic -EYES: Extraocular movements intact -LUNGS: Effort normal, Clear to auscultation bilaterally, No wheezes, No crackles, No ronchi -CVS: Regular rate -EXT: decreasing edema and erythema, left parks wound improved -NEURO: Awake, alert, oriented to person at least, [place], No acute gross neuro deficits Medications digoxin 125 mcg Intravenous Q6H donepezil 10 mg Oral Daily doxycycline hyclate 100 mg Oral 2 times per day furosemide 40 mg Intravenous Daily heparin (porcine) 5,000 Units Subcutaneous BID metoprolol tartrate 100 mg Oral BID piperacillin-tazobactam 3.375 g Intravenous Q8H QUEtiapine 25 mg Oral Nightly at bedtime senna-docusate 1 tablet Oral Nightly at bedtime spironolactone 25 mg Oral Daily tamsulosin 0.4 mg Oral nightly acetaminophen, albuterol sulfate HFA, ondansetron, polyethylene glycol Labs, Imaging, Other Studies Recent Labs Lab 10/14/24141010/15/24 0610/16/24 0700 WBC 11.59* 10.71 8.96 RBC 5.71 5.46 5.40 HGB 16.5 15.7 15.7 HCT 49.7 46.6 46.4 MCV 87.0 85.3 85.9 MCH 28.9 28.8 29.1 MCHC 33.2 33.7 33.8 PLT 189 171 182 RDW 15.0* 15.0* 14.7* MPV 10.5 10.9 10.2 PERNEU 80.1 75.2 72.1 PERLYM 8.5 11.8 12.8 PERMON 10.2 10.7 12.3 NEUC 9.27* 8.06* 6.46 LYMC 0.99* 1.26 1.15 MONOC 1.18* 1.15* 1.10* EOSC 0.04 0.15 0.16 BASOC 0.04 0.04 0.03 DTYPE AUTOMATED DIFFERENTIAL AUTOMATED DIFFERENTIAL AUTOMATED DIFFERENTIAL Recent Labs Lab 10/14/24141010/15/24 0610/16/24 0700 NA 135* 134* 136 K 3.6 3.4* 4.0 CL 96* 99 102 CO2 31.5 26.4 27.1 AGAP 7.5 8.6 6.9 BUN 21* 24* 19* CR 1.22 1.13 0.92 BUNCREATININ 17.2 21.2 20.6 GLU 122* 121* 110* CA 8.4* 8.7 8.4* TP 6.4 6.0* 5.7* ALB 3.0* 2.7* 2.4* TBIL 3.8* 2.9* 2.9* ALKP 50 43* 43* AST 34 22 18 ALT 21 18 17 Recent Labs Lab 10/14/24141010/15/24 0612 CHOL -- 100 TRI -- 76 HDL -- 31* LDL -- 54 HGBA1C -- 5.2 TSH 1.280 -- No results for input(s): APTT , INR , PTT in the last 168 hours. Recent Labs Lab 10/14/24141010/14/24 1935 TROP 143* 283* Recent Labs Lab 10/14/24 1406 PROCT 0.08 No results for input(s): PH , PCO2 , PO2 , A1PHJBHDIVIR , BICARBWB , BASEDEFICIT , BASEEXCESS in the last 168 hours. No results found for this or any previous visit. Assessment & Plan Atrial fibrillation with RVR Prior h/o pAF. Has consistently refused anticoagulation Unable to find EKG from OSH, he received metoprolol and diltiazem. Cardiology consulted. Recs appreciated. BB resumed Monitor on tele. I discussed plan of care with Cardiology today Acute on chronic HFrEF Patient appeared euvolemic on admission, but c/f CHF at OSH. OSH: Pro-BNP 3960 CXR 10/13 pulmonary edema vs PNA increased b/l pleural effusions. Cardiology consulted as above Continue IV Lasix. Monitor BMP Strict I/O and daily weights NSTEMI type 2 Cardiology consulted 2/2 above Tele SIRS Possible cellulitis vs PNA MRSA screen negative Continue doxycycline, IV Zosyn. Monitor for toxicity Mild temp elevations noted Wound care Acute metabolic encephalopathy 2/2 above Patient needed haldol and ativan at OSH Reorient as needed Seroquel started. Good response noted so far. Monitor ?possible PNA OSH CXR with pulmonary edema vs PNA. Received vanc and Zosyn at OSH to cover for HCAP. As above Supportive care with expectorants and antitussives Sputum culture if able IS/acapella Hyperbilirubinemia Mostly indirect hyperbilirubinemia Likely 2/2 congestive hepatopathy Monitor Hyponatremia Monitor with diuresis Left radial fracture Placed in splint at OSH. Will need ortho referral outpatient. Pain control PRN. Frequent falls May need placement PT/OT eval Thoracic aortic aneurysm Per last CTA in 2020 measuring 4.1 cm Dementia Per family worsening. Continue home meds. Urinary retention Noted at OSH Start Flomax Consider voiding trial in 1 week Hypokalemia Replete Monitor Other chronic conditions which adds to complexity of care: anxiety, anxiety, BPH, asthma, GERD. Continue home medications unless otherwise indicated. SDOH that would limit/prevent patient from receiving appropriate care/follow-up: Rural living VTE ppx: Heparin Code status: Full Surrogate decision maker/POA: Son ADMISSION STATUS: Inpatient Plan of care discussed with RN. Plan of care discussed with patient. An opportunity was provided for him to ask questions regardingthe hospital stay and plan of care. Questions were answered to the best of my ability. I attempted to call patient's son x3 to discuss patient's clinical status and plan of care. No VM available. Portions of this note were dictated with [email or web address] medical dictation software. Misspellings, punctuation errors, omitted words or dictation variances may occur. JOHAN OH MD * Tashi Mahoney Cecilia, PT - 10/16/2024 10:34 AM CDT 10/16/24 0900 Therapy Visit Ordering Provider MD Adriano PT Received On 10/16/24 PT Evaluation Completed on 10/16/24 Treatment Day 1 Subjective Rm [id number] PT orders received w/EMR reviewed. Patient supine agreeable to OOB to chair. Reason for admission DX: A-fib w/RVR, (L) radial fx Relevant Comorbidities/ Personal Factors to PT PMHX: anxiety, BPH, paroxysmal A- fib, ashtma, GERD, TAA, CAD Verified Two Patient Identifiers Yes Patient consents to therapy Yes Acute Inpatient PT Time Calculation PT Start Time 0925 PT Stop Time 0936 PT Time Calculation (min) 11 min Precautions Weight Bearing Status NWB;LUE Arm Brace/Sling Applied Yes Brace/Sling Location/Type brace applied to (L)wrist General Precautions Bed Alarm;Chair Alarm;Fall Risk PPE Used Face mask;Gloves Instructed on Precautions Yes;Needs reinforcement and education Skin Integrity dressing (L) parks Other arias catheter Home Living Type of Home House Home Layout One level Home Accessibility 0 Steps to enter Bathroom Shower/Tub Walk-in shower Bathroom Toilet Elevated height toilet (ADA height);Grab bars around toilet Home Living Comments questionable historian Prior Function Level of [place] Independent with ADLs;Independent with functional transfers;Independent with ambulation;Independent with homemaking with ambulation Device used at baseline None Baseline Ambulation Distance/Assistance household Fall History Yes Reason for fall pt reports falling backwards, but is unsure how this happened Most recent fall prior to admission How many falls in the past year? pt reports falling backwards, but is unsure how this happened Lives With Alone ADL Assistance Independent Homemaking Assistance Independent PLOF Comments Pt is a poor historian. Per EMR pt has been unable to take care of himself at home. Pain Pain Yes Pain Score Did not rate Location stomach Interventions Re-direction;Relaxation;Re-positioning Activity Tolerance Endurance Tolerates < 10 min activity, no significant change in vital signs Endurance Quality Fair Limiting Factors to Endurance Acute deconditioning;Weakness Vision - Basic Assessment Current Vision Wears glasses ([place]) Cognition Overall Cognitive Status Impaired Arousal/Alertness Delayed responses to stimuli Attention Span Attends with cues to redirect Memory Decreased recall of precautions;Decreased recall of recent events;Decreased short term memory Orientation Level Oriented to person Following Commands Follows one step commands with increased time Safety Judgment Decreased awareness of need for safety Awareness of Errors Decreased awareness of errors Deficits Decreased awareness of deficits Problem Solving Assistance required to generate solutions RLE Assessment RLE Assessment WFL LLE Assessment LLE Assessment WFL Bed Mobility Supine to Sit Mod assist to right TRANSFERS Sit to Stand Min assist;Mod assist;Assist of 2 Bed to Chair Min assist;Mod assist;Assist of 2 (w/quad cane) Gait Other (Comment) n/a'd Stairs Other (Comment) n/a'd Wheelchair Mobility Other (Comment) n/a Balance Sitting - Static SBA Sitting - Dynamic Min Assist;Support of one upper extremity Standing - Static Min Assist;Assist of 2 Persons;Support of one upper extremity Assessment Personal Factors/Comorbidities Impacting Care 3-4 personal factors/comorbidities Examination of Body Systems Moderate (3 or more Elements) Objectives of Body Systems Impaired bed mobility;Impaired transfers;Impaired ambulation;Impaired balance Clinical Presentation of Patient Evolving and changing characteristics Complexity Level of Evaluation Moderate Prognosis Fair PT Assess/Eval Other (Comment) The patient is an 79 year old male hospitalized with a dx of A-fib w/RVR and is s/p fall resulting in a (L) radial fx. Prior to admission the patient was (I) w/ambulation, transfers, and ADL's. At the PT evaluation the pateint requires assistance from PT/OT staff for bed mobility and transfers. Due to his decline the patient would benefit from PT services while hospitalized and SNF placement post hospitalization. Basic Mobility Turning from your back to your side while in a flat bed without using bedrails 3 (A Little) Moving from lying on your back to sitting on the side of a flat bed without using bedrails 3 (A Little) Moving to and from bed to chair (including wheelchair) 3 (A Little) Standing up from a chair using your arms (e.g. wheelchair or bedside commode 3 (A Little) To walk in hospital room 2 (A Lot) Climbing 3-5 steps with railing 2 (A Lot) Basic Mobility Score Score out of /24 16 Patient/Family Training Bed Mobility x Transfer Training x Discharge Recommendation PT Recommendation PT at long-term Facility PT Equipment Recommended To Be Determined Plan PT Treatments/Interventions Gait Training;Therapeutic Exercises;Therapeutic Activities;Neuromuscular re-education Progress Slow progress, medical status limitations PT Frequency 6 times/week PT plan for next session gait training, ther-ex, ther-activ, neuro re-ed If this is the last treatment note,it will serve as the discharge summary Yes End of Session End of Session Safety Chair alarm set/activated;Call light within reach;Nursing aware of session Interdisciplinary Collaboration RN, OT End of Session Comment patient instructed in NWB of the (L)UE but unable to maintain with bed mobility activities and transfer to chair w/QC * Nakita Mccall, OTR - 10/16/2024 10:24 AM CDT 10/16/24 1000 Therapy Visit OT Evaluation Completed on 10/16/24 Reason for admission AF/RVR, L radial fx Past Medical History: Diagnosis Date A-fib Anxiety Asbestos exposure Asthma (HHS/HCC) BPH (benign prostatic hyperplasia) Eustachian tube dysfunction GERD (gastroesophageal reflux disease) Hearing loss Joint pain MR (mitral regurgitation) Screening for AAA (abdominal aortic aneurysm) negative Screening for abdominal aortic aneurysm (AAA) performed 04/09/2018 Negative Sinusitis Thoracic ascending aortic aneurysm Ordering Provider Adriano Verified Two Patient Identifiers Yes Patient consents to therapy Yes Acute Inpatient OT Time Calculation OT Start Time 920 OT Stop Time 938 OT Time Calculation (min) 18 min Precautions Weight Bearing Status LUE;NWB Arm Brace/Sling Applied Yes (L wrist immobilizer) General Precautions Bed Alarm;Chair Alarm;Fall Risk;Hard of Hearing PPE Used Gloves Instructed on Precautions Yes;Needs reinforcement and education Skin Integrity L radial fracture with brace donned, Jenny parks dressing Other arias, IV Subjective Subjective RM 409: RN consent to treat, pt agreeable. He is confused, stating he needs to pee, although he has a arias cath. 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 unsure Lives With Alone ADL Assistance Independent Homemaking Assistance Independent PLOF Comments Pt is a poor historian. Per EMR pt has been unable to take care of himself at home. Pain Pain Yes Pain Score Did not rate Location stomach, R leg Interventions Informed RN;Re-direction;Re-positioning Activity Tolerance Endurance Tolerates 10 - 20 min activity with rests Endurance Quality Fair Limiting Factors to Endurance Acute deconditioning;Decreased alertness;Fatigue;Shortness of breath Activity Tolerance Comments HR 126, confusion Vision - Basic Assessment Current Vision Wears glasses Cognition Overall Cognitive Status Impaired Arousal/Alertness Generalized responses Attention Span Attends with cues to redirect Memory Decreased recall of precautions;Decreased recall of recent events;Decreased short term memory Orientation Level Oriented to person Following Commands Follows one step commands with repetition Safety Judgment Decreased awareness of need for safety Awareness of Errors Assistance required to correct errors made Deficits Decreased awareness of deficits Problem Solving Assistance required to generate solutions Motor Planning Cues to use objects appropriately Perseveration Perseverates during conversation Initiation Cues to initiate tasks Overall Extremity Assessment Upper Extremity Grossly WFLS Hand Function Gross Grasp Right;Left;Functional Coordination Functional Sensation Light Touch No apparent deficits ADL Eating/Feeding Assistance Minimal;Sitting in chair Grooming Assistance Minimal;Sitting in chair Bathing Assistance Moderate;Alternating sit/stand UE Dressing Assistance Moderate;Sitting in chair LE Dressing Assistance Moderate;Alternating sit/stand Toileting Assistance Moderate Additional Comments distal reaching, threading, cues, safety, additional time, steadying, vandana care, clothing management Bed Mobility Supine to Sit Mod assist to right Functional Transfers Sit to Stand Mod assist Bed to Chair Mod assist;Assist of 2 Other (Comment) stand pivot, quad cane Balance Sitting - Static SBA Sitting - Dynamic Min Assist Standing - Static Mod Assist;Support of one upper extremity Standing - Dynamic Mod Assist;Assist of 2 Persons;Support of one upper extremity Other (Comment) quad cane Assessment Occupational Profile and History Complexity Moderate (Expanded) Performance Skills Deficits Bathing/showering;Dressing;Feeding;Functional mobility;Health management and maintenance;Home establishment and management;Meal preparation and cleaning;Personal hygiene and grooming;Safety and emergency maintenance;Toileting Performance Deficit Level High (5 or more deficits) Clinical Decision Making Moderate (min/mod modifications) Complexity Level of Evaluation Moderate Prognosis Fair OT Assess/Eval Other (Comment) Pt is a 79 yo admitted with afib with RVR. 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 Cog deficits noted, pt has decreased safety awareness and requires cues for task initiation and seqencing. Heis not safe to return home at this time and would benefit from continued skilled OT services to increase safety with ADLs. Daily Activity Putting on and taking off regular lower body clothing 2 (A Lot) Bathing (including washing, rinsing, drying) 2 (A Lot) Putting on and taking off regular upper body clothing 3 (A Little) Toileting which includes toilet, bedpan, or urinal 2 (A Lot) Taking care of personal grooming such as brushing teeth 3 (A Little) Eating meals 3 (A Little) Daily Activity Score Score out of /24 15 Comments indicating 56% impairment Patient/Family Training Self Cares x Transfer Training x DME Education x Precautions x Discharge Recommendation OT Recommendation OT at long-term facility OT Equipment Recommended To Be Determined Plan OT Treatment/Intervention Self-care training;Therapeutic exercises;Therapeutic activities;Patient/family training;Continued evaluation;Functional activity;Safety Progress Slow progress, cognitive deficits OT Frequency Monitor status OT plan for next session ADLs If this is the last treatment note, it will serve as the discharge summary Yes End of Session End of Session Safety Chair alarm set/activated;Call light within reach;Nursing aware of session Interdisciplinary Collaboration RN, PT * Marcie Tanner RN - 10/16/2024 5:11 AM CDT Problem: Reduced risk for falls/injury Goal: Reduced Risk for Falls/Injury Outcome: Progressing Goal: Reduced Risk of Confusion (Acute vs Chronic) Outcome: Progressing Goal: Reduced Risk of Symptomatic Depression Outcome: Progressing Goal: Reduced Risk of Altered Elimination Outcome: Progressing Goal: Reduced Risk of Dizziness/Vertigo/Balance Outcome: Progressing Goal: Reduced Risk of Polypharmacy Outcome: Progressing Problem: Discharge Planning Goal: Knowledge of discharge instructions Outcome: Progressing Problem: Pain control/comfort Goal: Promote pain control/comfort Outcome: Progressing Problem: Skin integrity, Impaired-wound Goal: Absence of new skin breakdown Outcome: Progressing Goal: Evidence of wound healing Outcome: Progressing Problem: Moisture associated skin impairment Goal: Reduce moisture exposure Outcome: Progressing Problem: Discharge Planning Goal: Knowledge of discharge instructions Outcome: Progressing Problem: Pain control/comfort Goal: Promote pain control/comfort Outcome: Progressing Problem: Moisture associated skin impairment Goal: Reduce moisture exposure Outcome: Progressing Problem: Discharge Planning Goal: Knowledge of discharge plan Outcome: Progressing Problem: Infection - Risk of, Urinary Catheter-Associated Urinary Tract Infection Goal: Absence of Urinary Catheter Associated Urinary Tract (UTI) Infection Signs and Symptoms Outcome: Progressing Problem: Activity Intolerance Goal: Improved activity tolerance Outcome: Progressing Goal: Able to perform prescribed physical activity Outcome: Progressing * Nurse Roberta Custom Tailor II - 10/15/2024 7:38 PM CDT Problem: Reduced risk for falls/injury Goal: Reduced Risk for Falls/Injury Outcome: Progressing Goal: Reduced Risk of Confusion (Acute vs Chronic) Outcome: Progressing Goal: Reduced Risk of Symptomatic Depression Outcome: Progressing Goal: Reduced Risk of Altered Elimination Outcome: Progressing Goal: Reduced Risk of Dizziness/Vertigo/Balance Outcome: Progressing Goal: Reduced Risk of Polypharmacy Outcome: Progressing Problem: Discharge Planning Goal: Knowledge of discharge instructions Outcome: Progressing Problem: Pain control/comfort Goal: Promote pain control/comfort Outcome: Progressing Problem: Skin integrity, Impaired-wound Goal: Absence of new skin breakdown Outcome: Progressing Goal: Evidence of wound healing Outcome: Progressing Problem: Skin integrity, Impaired-pressure injury/ulcer Goal: Absence of new skin breakdown Outcome: Progressing Goal: Evidence of pressure injury/ulcer healing Outcome: Progressing Problem: Skin integrity, at risk Goal: Absence of new skin breakdown Outcome: Progressing Problem: Moisture associated skin impairment Goal: Reduce moisture exposure Outcome: Progressing Goal: Evidence of wound healing Outcome: Progressing Goal: Evidence of pressure injury/ulcer healing Outcome: Progressing Goal: Absence of new skin breakdown Outcome: Progressing Problem: Discharge Planning Goal: Knowledge of discharge instructions Outcome: Progressing Problem: Pain control/comfort Goal: Promote pain control/comfort Outcome: Progressing Problem: Skin integrity, Impaired-wound Goal: Absence of new skin breakdown Outcome: Progressing Goal: Evidence of wound healing Outcome: Progressing Problem: Skin integrity, Impaired-pressure injury/ulcer Goal: Absence of new skin breakdown Outcome: Progressing Goal: Evidence of pressure injury/ulcer healing Outcome: Progressing Problem: Skin integrity, at risk Goal: Absence of new skin breakdown Outcome: Progressing Problem: Moisture associated skin impairment Goal: Reduce moisture exposure Outcome: Progressing Goal: Evidence of wound healing Outcome: Progressing Goal: Evidence of pressure injury/ulcer healing Outcome: Progressing Goal: Absence of new skin breakdown Outcome: Progressing Problem: Infection - Risk of, Urinary Catheter-Associated Urinary Tract Infection Goal: Absence of Urinary Catheter Associated Urinary Tract (UTI) Infection Signs and Symptoms Outcome: Progressing Problem: Discharge Planning Goal: Knowledge of discharge plan Outcome: Progressing Problem: Activity Intolerance Goal: Improved activity tolerance Outcome: Progressing Goal: Able to perform prescribed physical activity Outcome: Progressing Cosigned by Sade Guerin RN at 10/16/2024 6:42 AM CDT * Cecily Pompa, PT - 10/15/2024 4:09 PM CDT 10/15/24 1516 Therapy Visit Ordering Provider Pedro Subjective RM 409: PT orders received and EMR reviewed. RN consents. Pt supine in bed and initiallyagreeable. Pt provided subjective information, however appears to be a questionable historian. Whenattempting to have patient move to sit at edge of bed he then declines to perform any mobility including sitting edge of bed. Pt education provided regarding the importance of OOB mobility, however pt declines. PT will follow up at a later date/time. Reason for admission AF/RVR, L radial fx Relevant Comorbidities/ Personal Factors to PT BPH, paroxysmal Afib, CAD, GERD, asthma, mood disorder Verified Two Patient Identifiers Yes (Wrist band, RN) Patient consents to therapy Yes Acute Inpatient PT Time Calculation PT Start Time 1516 PT Stop Time 1529 PT Time Calculation (min) 13 min Precautions Weight Bearing Status LUE;NWB Skin Integrity L radial fracture with brace donned Other arias, IV Home Living Type of Home House Home Layout One level Home Accessibility 0 Steps to enter Prior Function Level of Roe[place] Independent with ADLs;Independent with functional transfers;Independent with ambulation;Independent with homemaking with ambulation Device used at baseline None Fall History Yes Reason for fall pt reports falling backwards, but is unsure how this happened 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 unsure Lives With Alone ADL Assistance Independent Homemaking Assistance Independent PLOF Comments Pt is a poor historian. Per EMR pt has been unable to take care of himself at home. Pain Pain No Activity Tolerance Activity Tolerance Comments SPO2 93%, hR 70 on RA * Arlene Berry, OTR - 10/15/2024 4:06 PM CDT 10/15/24 1316 Therapy Visit OT Evaluation Completed on 10/15/24 Reason for admission AF/RVR, L radial fx Comorbidities Relevant to OT asthma, AF, GERD, TIA, CAD, CHF, Falls Ordering Provider Adriano Verified Two Patient Identifiers Yes (wristband, RN) Patient consents to therapy Yes Acute Inpatient OT Time Calculation OT Start Time 151 OT Stop Time 1529 OT Time Calculation (min) 13 min Precautions Weight Bearing Status LUE;NWB (at the wrist, wrist immobilizer splint) Arm Brace/Sling Applied Yes (L wrist immobilizer) Subjective Subjective Rm 409 OT orders received. EMR reviewed. Rn aware. Spent ~ 15 mins with the pt, completing subjective, tested Ue strength and the pt declined to do anymore. Will follow up at a later time/date. 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 Independent Homemaking Assistance Independent Pain Pain No Activity Tolerance Endurance Tolerates < 10 min activity, no significant change in vital signs Endurance Quality Poor Limiting Factors to Endurance Acute deconditioning;Decreased alertness;Fatigue;Shortness of breath Activity Tolerance Comments SPO2 93%, hR 70 on RA Vision - Basic Assessment Current Vision Wears glasses ([place]) Cognition Complex Affect Depressed/Sad;Flat Overall Extremity Assessment Upper Extremity Grossly WFLS Hand Function Gross Grasp Right;Left;Functional End of Session End of Session Safety Bed alarm set/activated;Call light within reach;Nursing aware of session Interdisciplinary Collaboration RN, PT * Luci Helms RN - 10/15/2024 1:16 PM CDT 10/15/24 1316 Interdisciplinary Group Conference Team Members Present Physician;Case/Care management Physician present for group conference [place] Patient Current Status Paient current status Inpatient Barriers to Discharge Inpatient Review Barriers to Discharge Inpatient Other (Comment) Other follow up (Comment) IV ABX ZOSYN DOXYCYUCLINE LASIX 40MG/Q12H CARDIOLOGY TO SEE Patient expects to be discharged to Patient expects to be [facility] * Luci Helms RN - 10/15/2024 10:24 AM CDT DISCHARGE PLANNING Received call from PRESLEY Lindsey at the [facility] [phone]. She stated that she got a call from the [facility] yesterday [facility]. She states that his HX she has is a Mood Disorder that he took Haldol for but no longer is taking and Cognitive impairment dx in 2022 he was also ruled out for Bipolar I and II. Attempted to reach son, but was unable to talk with him- called Cece the daughter in law, she stated that he was wanting a psych eval done on the patient - explained that we do not psychiatric services here. Asked if they are wanting him transferred [place] for [facility] of [place]? If so we will have to see if they have a bed available- she will talk to him and give me a call back. Updated Dr. Oh. * CHAPLAIN Alisa - 10/15/2024 9:36 AM CDT Consult to Spiritual Care regarding: Family Request Visit From Pastoral Care Consult from: Luci Hurtado RN People present: 1 (Patient) Need Identified: Support/spiritual care Interventions: Providing Words of hope/comfort/Scripture reading. Visit ended with prayer blessing. [x] Pastoral care visit found patient slow to speak, low energy, and appearing very tired. Chaplainwas unable to have routine visit Follow up needs: Equipment Worker will be available for ongoing support as needs arise * Johan Oh MD - 10/15/2024 8:35 AM CDT Hospitalist Daily Progress Note Sky Hurtado is a 79-year-old male with a past medical history significant for BPH, paroxysmal afib, asthma, GERD, TAA, CAD, who presented with atrial fibrillation with RVR. Subjective Patient sitting up in bed. He complains of LE pain. Supplemental hx obtained from RN. DILLON. Patient slept well. Objective Filed Vitals: 10/15/24 0300 10/15/24 0340 10/15/24 0725 10/15/24 1113 BP: (!) 141/80 (!) 136/98 115/89 Pulse: 99 (!) 109 (!) 117 Resp: 16 Temp: 97.3 ??F (36.3 ??C) 98.5 ??F (36.9 ??C) 98.4 ??F (36.9 ??C) 99 ??F (37.2 ??C) TempSrc: Oral Oral Oral SpO2: 97% 93% 94% Intake/Output 24H Total: Intake/Output Summary (Last 24 hours) at 10/15/2024 1354 Last data filed at 10/15/2024 1242 Gross per 24 hour Intake 600 ml Output 1580 ml Net -980 ml Physical Exam: -GENERAL: No acute distress -HEAD: Normocephalic, Atraumatic -EYES: Extraocular movements intact -LUNGS: Effort normal, Clear to auscultation bilaterally, No wheezes, No crackles, No ronchi -CVS: Regular rate -EXT: edema and erythema, left parks wound improved -NEURO: Awake, alert, oriented to person at least, [place], No acute gross neuro deficits Medications donepezil 10 mg Oral Daily doxycycline 100 mg Intravenous Q12H furosemide 40 mg Intravenous Daily heparin (porcine) 5,000 Units Subcutaneous BID metoprolol tartrate 100 mg Oral BID piperacillin-tazobactam 3.375 g Intravenous Q8H QUEtiapine 25 mg Oral Nightly at bedtime senna-docusate 1 tablet Oral Nightly at bedtime spironolactone 25 mg Oral Daily acetaminophen, albuterol sulfate HFA, ondansetron, polyethylene glycol Labs, Imaging, Other Studies Recent Labs Lab 10/14/24 1411 10/15/24 0612 WBC 11.59* 10.71 RBC 5.71 5.46 HGB 16.5 15.7 HCT 49.7 46.6 MCV 87.0 85.3 MCH 28.9 28.8 MCHC 33.2 33.7 PLT 189 171 RDW 15.0* 15.0* MPV 10.5 10.9 PERNEU 80.1 75.2 PERLYM 8.5 11.8 PERMON 10.2 10.7 NEUC 9.27* 8.06* LYMC 0.99* 1.26 MONOC 1.18* 1.15* EOSC 0.04 0.15 BASOC 0.04 0.04 DTYPE AUTOMATED DIFFERENTIAL AUTOMATED DIFFERENTIAL Recent Labs Lab 10/14/24 1411 10/15/24 0612 NA 135* 134* K 3.6 3.4* CL 96* 99 CO2 31.5 26.4 AGAP 7.5 8.6 BUN 21* 24* CR 1.22 1.13 BUNCREATININ 17.2 21.2 GLU 122* 121* CA 8.4* 8.7 TP 6.4 6.0* ALB 3.0* 2.7* TBIL 3.8* 2.9* ALKP 50 43* AST 34 22 ALT 21 18 Recent Labs Lab 10/14/24 1411 10/15/24 0612 CHOL -- 100 TRI -- 76 HDL -- 31* LDL -- 54 HGBA1C -- 5.2 TSH 1.280 -- No results for input(s): APTT , INR , PTT in the last 168 hours. Recent Labs Lab 10/14/24 1411 10/14/24 1935 TROP 143* 283* Recent Labs Lab 10/14/24 1406 PROCT 0.08 No results for input(s): PH , PCO2 , PO2 , K2IUDHCETNMI , BICARBWB , BASEDEFICIT , BASEEXCESS in the last 168 hours. No results found for this or any previous visit. Assessment & Plan Atrial fibrillation with RVR Prior h/o pAF. Has consistently refused anticoagulation Unable to find EKG from OSH, he received metoprolol and diltiazem. Cardiology consulted. Recs appreciated. BB resumed Monitor on tele. I discussed plan of care with Cardiology today Acute on chronic HFrEF Patient appeared euvolemic on admission, but c/f CHF at OSH. OSH: Pro-BNP 3960 CXR 10/13 pulmonary edema vs PNA increased b/l pleural effusions. Cardiology consulted as above Start IV Lasix. Monitor BMP Strict I/O and daily weights NSTEMI type 2 Cardiology consulted 2/2 above Tele SIRS Possible cellulitis vs PNA Check MRSA screen, PCT IV doxycycline, IV Zosyn. Monitor for toxicity Wound care Acute metabolic encephalopathy 2/2 above Patient needed haldol and ativan at OSH Reorient as needed Seroquel started. Monitor ?possible PNA OSH CXR with pulmonary edema vs PNA. Received vanc and Zosyn at OSH to cover for HCAP. As above Supportive care with expectorants and antitussives Sputum culture if able IS/acapella Hyperbilirubinemia Mostly indirect hyperbilirubinemia Likely 2/2 congestive hepatopathy Monitor Hyponatremia Monitor with diuresis Left radial fracture Placed in splint at OSH. Will need ortho f/u. Pain control PRN. Frequent falls May need placement PT/OT eval Thoracic aortic aneurysm Per last CTA in 2020 measuring 4.1 cm Dementia Per family worsening. Continue home meds. Urinary retention Noted at OSH Start Flomax Consider voiding trial in 1 week Hypokalemia Replete Monitor Other chronic conditions which adds to complexity of care: anxiety, anxiety, BPH, asthma, GERD. Continue home medications unless otherwise indicated. SDOH that would limit/prevent patient from receiving appropriate care/follow-up: Rural living VTE ppx: Heparin Code status: Full Surrogate decision maker/POA: Son ADMISSION STATUS: Inpatient Plan of care discussed with RN. Plan of care discussed with patient. An opportunity was provided for him to ask questions regardingthe hospital stay and plan of care. Questions were answered to the best of my ability. Portions of this note were dictated with [employer] medical dictation software. Misspellings, punctuation errors, omitted words or dictation variances may occur. JOHAN OH MD * Luci Helms RN - 10/15/2024 8:15 AM CDT 10/14/24 1405 Referral Data Source of Information Patient Patient Information Primary Caregiver Self Current living Situation Alone Type of Residence Private residence (s-6 steps to get in) Support System Spouse/Significant Other Are you employed? Retired Baseline ADL's Functional Status Independent Behavior Forgetful;Cooperative Communication Talks;Understands speaking;Understands [place] Psychosocial Need Indicator Mental health concerns No Diagnosis/prognosis resulting in poor adjustment or coping with illness No Diagnosis/prognosis with anticipated outcome of major lifestyle changes, including change in [facility] living environment No Complex Family concerns No Abuse and/or neglect of elder, adult or child No Psychiatric and/or substance abuse issues affecting current hospitalization No Homelessness with lack of safe discharge environment No Need for guardianship petition No Involuntary patient No DC screening tool This is a screening tool it does not take the place of a physical or occupational therapy evaluation. The screening is to screen the patient for what services and destination would be beneficial for patient for next level of care Conversation with the patient/family Will the patient be returning to prior living situation with no new identified needs? No Home Health: IF YES to ANY questions 1-5, consider discharge with home health, If NO proceed to next section 1. Does the Completion of ADLs in the home leave the patient exhausted, excessively SOB, etc? No 2.Does the patient require assistance with ADLs, Ambulation and/or Transfer, and is there a caregiver or assistance in the home? No 3.Does the patient ambulate in the home with assistive devices or supervision? No 4.Is the patient able to transfer with minimal support or caregiver assistance? Yes 5.Can the patient return to previous living conditions with intermittent supportive services (i.e.C-SN, PT, OT, TRANSPORTATION EQUIPMENT PAINTER)? No Prison Facility: If NO, to question 6, refer to [facility]; If YES to ANY questions 7-9 consider transition to SNF 7.Does the patient require assistance with ADLs, ambulation, and/or transfer and have NO caregiver,or assistance in the home? Yes 8.Does the patient have cognitive difficulties that may requiring additional support or therapy? Yes 9.Does the patient have medical conditions that require 24/7 nursing care? Yes Based on the screening the DC plan for consideration is: Patient expects to be discharged to: [facility]( SNF) Adequate Resources Available Adequate Resources Yes NCM performed bedside interview, patient's name and verified: Support: son and daughter in law Ambulation: independent- DME products:none Medical Devices:none ADLs: independent Drives:yes Transport Home: tbd A/O:x2-3 Communication:no barriers Home Health: Occupation:retired Pharmacy:[facility] Financial Concerns:none PCP: md dariana Insurance Plan:[employer]/[place] Discharge needs: may need SNF placement- Care Coordination Team will provide discharge planning as needed, and will re- evaluate based on recommendations, treatment course, and the patient's expressed preferences. * Aide Ramirez RN - 10/15/2024 12:46 AM CDT Problem: Reduced risk for falls/injury Goal: Reduced Risk for Falls/Injury Outcome: Progressing Goal: Reduced Risk of Confusion (Acute vs Chronic) Outcome: Progressing Goal: Reduced Risk of Symptomatic Depression Outcome: Progressing Goal: Reduced Risk of Altered Elimination Outcome: Progressing Goal: Reduced Risk of Dizziness/Vertigo/Balance Outcome: Progressing Goal: Reduced Risk of Polypharmacy Outcome: Progressing Problem: Discharge Planning Goal: Knowledge of discharge instructions Outcome: Progressing Problem: Pain control/comfort Goal: Promote pain control/comfort Outcome: Progressing Problem: Skin integrity, Impaired-wound Goal: Absence of new skin breakdown Outcome: Progressing Goal: Evidence of wound healing Outcome: Progressing Problem: Skin integrity, Impaired-pressure injury/ulcer Goal: Absence of new skin breakdown Outcome: Progressing Goal: Evidence of pressure injury/ulcer healing Outcome: Progressing Problem: Skin integrity, at risk Goal: Absence of new skin breakdown Outcome: Progressing Problem: Moisture associated skin impairment Goal: Reduce moisture exposure Outcome: Progressing Goal: Evidence of wound healing Outcome: Progressing Goal: Evidence of pressure injury/ulcer healing Outcome: Progressing Goal: Absence of new skin breakdown Outcome: Progressing Problem: Discharge Planning Goal: Knowledge of discharge instructions Outcome: Progressing Problem: Pain control/comfort Goal: Promote pain control/comfort Outcome: Progressing Problem: Skin integrity, Impaired-wound Goal: Absence of new skin breakdown Outcome: Progressing Goal: Evidence of wound healing Outcome: Progressing Problem: Skin integrity, Impaired-pressure injury/ulcer Goal: Absence of new skin breakdown Outcome: Progressing Goal: Evidence of pressure injury/ulcer healing Outcome: Progressing Problem: Skin integrity, at risk Goal: Absence of new skin breakdown Outcome: Progressing Problem: Moisture associated skin impairment Goal: Reduce moisture exposure Outcome: Progressing Goal: Evidence of wound healing Outcome: Progressing Goal: Evidence of pressure injury/ulcer healing Outcome: Progressing Goal: Absence of new skin breakdown Outcome: Progressing Problem: Infection - Risk of, Urinary Catheter-Associated Urinary Tract Infection Goal: Absence of Urinary Catheter Associated Urinary Tract (UTI) Infection Signs and Symptoms Outcome: Progressing * Luci Helms RN - 10/14/2024 2:05 PM CDT DISCHARGE PLANNING When interviewing patient, patient knew his date, did not know his address, when asked what month it was he answered August when asked what year it was, he thought about it and stated let me think I don't want to get this wrong, then answered with 03/05/1971. When asked if he lived with anyone he tells me he lives alone, still drives and does everything on his own. Did not know his pharmacy, did know his PCP. Will contact the son and [id number] for more information. documented in this encounter H&P Notes * Lloyd Child, WOOL SORTER - 10/14/2024 8:48 AM CDT Hospitalist History and Physical Patient: Sky Hurtado Date: 10/14/2024 male, 79-year-old Admit Date: (Not on file) Attending: Johan Oh MD REASON FOR ADMISSION: Atrial fibrillation with RVR HISTORY OF PRESENT ILLNESS: Sky Hurtado is a 79-year-old male with past medical history significant for anxiety, BPH, paroxysmal afib, asthma, GERD, TAA, CAD that presented to an OSH after a fall. Patient is a very poor historian and no family present therefore most information obtained from OSH records. His falls have beendue to loss of balance while walking. He denies any dizziness, chest pain, or loss of consciousnessprior to fall. He denies any LOC. He did hit his head a few times according to OSH documentation. Imaging at [facility] showed a left radial fracture and he was placed in a splint. Today, he woke up in afib with RVR. He was given metoprolol and cardizem. His BNP and bilirubin were also elevated. CXR was concerning for pneumonia and CHF. He was given vancomycin and Zosyn. Cardiology was contacted here and accepted for transfer. Currently, he is resting in bed eating. RN was able to talk to [id number]. She says that he is not taking any of his medications including his metoprolol. EMS found full bottles of his medications in the home. They are concerned about him living at home alone. He is not able to take care of himself and is incontinent of urine. He eats nonstop because he forgets that he already ate. History obtained via chart review, discussion with patient, and review of outside records. Allergy Allergies Allergen Reactions Penicillins Nausea Only Sudafed [Pseudoephedrine] Dizziness Medication list No medications prior to admission. No current facility-administered medications on file prior to encounter. Current Outpatient Medications on File Prior to Encounter Medication Sig Dispense Refill azelastine 0.1 % nasal spray INSTILL 2 SPRAYS IN EACH NOSTRIL ONCE DAILY 3 diazePAM 5 MG tablet 2 (two) times daily. fish oil 1000 MG Cap capsule Take 2,000 mg by mouth daily. Menaquinone-7 (VITAMIN K2 OR) metoprolol succinate ER 100 MG 24 hr tablet Take 1 tablet (100 mg total) by mouth 2 (two) times a day. 180 tablet 3 Misc Natural Products (TURMERIC CURCUMIN) capsule Take 2 capsules by mouth daily. multi vitamin/minerals tablet Take 3 tablets by mouth daily. MYRBETRIQ 50 MG 24 hr tablet Take 50 mg by mouth daily. 11 oxybutynin XL 10 MG 24 hr tablet Probiotic Product (PROBIOTIC ADVANCED) Cap vitamin B-2 100 MG tablet Take 100 mg by mouth daily. vitamin C 1000 MG tablet Take 1,000 mg by mouth daily. vitamin D3, cholecalciferol, 5000 UNITS capsule Take 1 capsule by mouth daily. Medications were reconciled past lability given fall available resources at the time of admission. Route is p.o. if not otherwise noted. Past Medical History Past Medical History: Diagnosis Date A-fib Anxiety Asbestos exposure Asthma (HHS/HCC) BPH (benign prostatic hyperplasia) Eustachian tube dysfunction GERD (gastroesophageal reflux disease) Hearing loss Joint pain MR (mitral regurgitation) Screening for AAA (abdominal aortic aneurysm) negative Screening for abdominal aortic aneurysm (AAA) performed 04/09/2018 Negative Sinusitis Thoracic ascending aortic aneurysm Past Surgical History: Procedure Laterality Date APPENDECTOMY HERNIA REPAIR PROSTATE SURGERY 2016 SEPTOPLASTY SINUS SURGERY TOTAL KNEE ARTHROPLASTY Social History Social History Socioeconomic History Marital status: Number of children: 3 Tobacco Use Smoking status: Former Smokeless tobacco: Former Types: Chew Substance and Sexual Activity Alcohol use: No Comment: Quit drinking in 1990 Drug use: No Other Topics Concern Exercise Yes Comment: Daily Special Diet No Comment: Low sodium, only eats fish and veggies Caffeine Concern No Family History Family History Problem Relation Name Age of Onset Hypertension Father REVIEW OF SYSTEMS: A 14 point review of systems was taken and pertinent positive as per HPI PHYSICAL EXAMINATION: Vital 24 Hour Range Most Recent Value Temperature No data recorded Pulse No data recorded Respiratory No data recorded Blood Pressure No data recorded Pulse Oximetry No data recorded O2 No data recorded Vital Most Recent Value First Value Weight Height BMI N/A Physical Exam: GEN: In no acute distress. Breathing comfortably on room air. HEENT: Clear conjunctiva. Mucous membranes moist. RESPIRATORY: Effort normal. CTA, no wheezes or crackles. CVS: Irregularly irregular, no MRG. ABD: Soft, Nontender. EXT: No edema. MUSCULOSKELETAL: Left wrist in splint SKIN: Warm, dry. No rashes or ulcers. PSYCH: Appropriate affect NEURO: Alert and oriented x1. No focal deficits Intake/Output last 3 shifts: No intake/output data recorded. Labs: No results for input(s): NA , K , CL , CO2 , AGAP , BUN , CR , BUNCREATININ , GFRNON , GFR , GLU , CA , MAGNESIUM , PHOS in the last 168 hours. No results for input(s): WBC , RBC , HGB , HCT , MCV , MCH , MCHC , PLT , RDW , MPV in the last 168 hours. No results for input(s): AST , ALT in the last 168 hours. Invalid input(s): TOTALBILLIRUBIN , ALK No results for input(s): INR , PTT in the last 168 hours. Invalid input(s): ABG arterial blood gases No results for input(s): TROP , TROPIWB , CPK in the last 168 hours. Invalid input(s): CK-MB No results for input(s): PH , PCO2 , PO2 , B0OGSCTMESOD , BICARBWB , BASEDEFICIT , BASEEXCESS in the last 168 hours. Laboratory results above were independently viewed and interpreted by me. Imaging & Other Studies See official reports for full details ~~~ [facility] Labs 10/12 Hgb 15.5, HCT 46.5, PLT 179, WBC 7.3 Gluc 118 BUN 19 Na132 K 4 Cl 98 CO2 29 Ca 8.7 AST 48 ALP 45 total protein 5.9 bili 1.7 albumin 3.7 ALT 31 Cr 0.99 eGFR 73 trop 0.018 BNP 3960 Labs 10/14 (abnormal) Gluc 209 BUN 21 Na 129 Cl 94 Ca 8.4 total bili 6 total protein 5.[address] WO 10/12/24 No evidence of an acute intracranial abnormality Evidence of mild chronic microangiopathic gliosis CXR 10/12/24 Mild interstital thickening and trace right pleural effusion Mild cardiomegaly CXR 10/13/24 New bilateral interstitial and airspace opacities could represent pulmonary edema or multifocal pneumonia. Increased small right and trace left pleural effusions Left forearm XR; wrist XR 10/12/24 Curvilinear lucency obliquely across the radial metaphysis suspicious for nondisplaced fracture. This could be confirmed with a CT examination if needed. Irregularity at the radial head neck may be related to arthritic or previous posttraumatic change. If this were referable site concern, dedicated elbow imaging could be performed. CT C spine WO 10/12/24 No evidence of an acute osseous abnormality of the cervical spine Moderate to severe cervical spondylosis Ankylosis of the C4-5 facet joints No results found for this visit on 10/14/24. I have reviewed the images above and agree with interpretation made by the radiologist. Assessment & Plan Atrial fibrillation with RVR Prior h/o pAF. Has consistently refused anticoagulation Unable to find EKG from OSH, he received metoprolol and diltiazem. Will recheck EKG Cardiology consult appreciated. Monitor on tele. Noncompliant with BB. Will resume. Acute on chronic CHF Patient appeared euvolemic on admission, but c/f CHF at OSH. OSH: Pro-BNP 3960 CXR 10/13 pulmonary edema vs PNA increased b/l pleural effusions. Will recheck BNP and CXR Cardiology consulted. Recommendations are appreciated. No recent echo on file Will defer to cardiology for further diuresis Strict I/O and daily weights ?possible PNA OSH CXR with pulmonary edema vs PNA. Received vanc and Zosyn at OSH to cover for HCAP. Will hold off on continuing abx as he is having no UR symptoms or sepsis Check WBC and PCT. Supportive care with expectorants and antitussives Sputum culture if able IS/acapella Hyperbilirubinemia Bili as high as 6 at OSH ?Hepatic congestion Recheck Consider imaging Hyponatremia Na 129 at OSH. Did receive some diureses Recheck Left radial fracture Placed in splint at OSH. Will need ortho f/u. Pain control PRN. Frequent falls May need placement PT/OT eval Thoracic aortic aneurysm Per last CTA in 2020 measuring 4.1 cm Dementia Per family worsening. Continue home meds. Other chronic conditions which adds to complexity of care: anxiety, anxiety, BPH, asthma, GERD. Continue home medications unless otherwise indicated. -DVT prophylaxis: subq heparin for now, will defer to cardiology for anticoagulation regarding afib -Lines/tubes: None -IVF: None -Diet: General -Level of care: Telemetry -Anticipated disposition at discharge: Pending PT eval -PCP: DE MARTINES MD (Inactive) POA: Son, Martin Hurtado Code: Full Plan of care was discussed with patient with provided time for questions and concerns. Plan of carewas also discussed with RN and collaborating physician. Notes reviewed from consults and specialists, as well as PT/OT, CM/SW, and pastoral care. Social determinants of health include mental health concerns, poor health literacy. RN CM/SW consulted to assist with identifying needs and discharge planning. I certify that inpatient services for greater than 2 midnights are medically necessary for this patient. This note was dictated with [employer] medical dictation software; misspellings, punctuation errors, omitted words or dictation variances may occur. LLOYD CHILD APRN 10/14/2024 Cosigned by Johan Oh MD at 10/14/2024 3:42 PM CDT Associated attestation - Johan Oh MD - 10/14/2024 3:42 PM CDT I, JOHAN OH MD, participated in the care of this patient on the day of admission anddiscussed the plan of care with the AIDEN, who shared in this visit. I have reviewed the AIDEN's documentation and agree with the findings except as I have documented. I personally spent a substantive amount of time, caring for this patient. Sky Hurtado is a 79-year-old male with a PMH significant for anxiety, BPH, paroxysmal afib, asthma, GERD, TAA, CAD, who presents with atrial fibrillation with RVR. Exam: -GENERAL: No acute distress -HEAD: Normocephalic, Atraumatic -EYES: Tightly closed -LUNGS: Effort normal, Clear to auscultation bilaterally, No wheezes, No crackles, No ronchi -CVS: Tachycardic -EXT: edema, erythema, wound to left parks -NEURO: Appears awake but keeping eyes closed Assessment and Plan: Afib with RVR Cardiology consulted. Recs appreciated Continue BB pending Cards recs Tele Acute on chronic HFrEF Cardiology consulted as above Diurese as able I/O Daily weights SIRS Possible cellulitis vs PNA Check MRSA screen, PCT IV doxycycline, IV Zosyn. Monitor for toxicity Wound care Left radial fracture Placed in splint at OSH. Will need ortho f/u outpatient. Pain control PRN. Patient discussed with the transferring attending. JOHAN OH MD documented in this encounter Consult Notes * Catie Irwin RN - 10/17/2024 8:18 AM CDTAssociated Order(s): INPATIENT CONSULT TO WOUND CARE Wound Consult for right elbow and LLE. See flowsheet for assessment, pictures, and measurements. Recommendations: RIGHT ELBOW: cleanse with wound cleanser or normal saline, apply Xeroform, gauze, Kerlix daily LLE: cleanse with wound cleanser or wound cleanser, apply Xeroform and bordered foam daily documented in this encounter Nursing Notes * Sallie Arriaga RN - 10/19/2024 6:36 PM CDT Spoke with patients son (Martin) one time today and [id number] (Geni) three times. Last time around 1800 in patient's room. Daughter in law is ready with Dr. Mia garcia and his dog Abundioie waiting on patient to return home this evening by Ambulance. Dr. Bonilla was asked to call son with an update on his father. Dr. Bonilla attempted multiple times but patients son did not answer. Currentlywaiting on EMS to arrive. * Luci Hurtado RN - 10/14/2024 1:44 PM CDT This nurse called the patient's son, Martin ([phone]), to complete the patient's admission. No answer, unable to leave a voicemail. Primary nurse, Rafia, notified. 14:04 - contacted the pharmacy listed and he has not had medications filled there since 2022. Contacted the patient's PCP office (Dr. Martines [phone]) and spoke to Jeniffer. She provided the patient's medication list from the last visit of May 2024. This nurse provided an update to Jeniffer on the reason for the admission. Doc halo to Dr. Oh and primary nurse, Rafia. 14:23 - this nurse spoke to the patient's daughter in law, Geni ([phone]), she was able to complete the admission. Geni states that the patient is suppose to take Metoprolol twice a day but knows he is not taking any of his medications. Per Geni, EMS found full bottles of medication in the home. She is concerned about the patient not caring for himself at home, eating nonstop because he forgets that he already ate and constantly falling. Informed Geni that her information will be provided to the primary nurse so any updates will be called to her. Geni verbalized understanding and had no further questions. Doc halo to Dr. Oh and primary nurse, Rafia. documented in this encounter Plan of Treatment Upcoming Encounters Date Type Department Care Team (Late st Contact Info) Description 10/20/2024 12:00 [place] [address] Hilary De León, PRESLEY [phone] (Work) documented as of this encounter Procedures Procedure Name Priority Date/Time Associated Diagnosis Comments PROCALCITONIN (PCT) Routine 10/19/2024 6 :47 AM CDT INDIRECT BILIRUBIN Routine 10/19/2024 6: 47 AM CDT COMPREHENSIVE METABOLIC PANEL Routine 10/19/2024 6:47 AM CDT C-REACTIVE PROTEIN Routine 10/19/2024 6: 47 AM CDT DIRECT BILIRUBIN Routine 10/19/2024 6:47 AM CDT CBC W/DIFF AUTOMATED Routine 10/19/2024 6:47 AM CDT PHOSPHORUS, INORGANIC PHOSPHATE Routine 10/19/2024 6:47 AM CDT MAGNESIUM Routine 10/19/2024 6:47 AM CDT PROCALCITONIN (PCT) Routine 10/18/2024 6 :41 AM CDT BASIC METABOLIC PANEL Routine 10/18/2024 6:41 AM CDT CBC W/DIFF AUTOMATED Routine 10/18/2024 6:41 AM CDT INDIRECT BILIRUBIN Routine 10/17/2024 6: 44 AM CDT COMPREHENSIVE METABOLIC PANEL Routine 10/17/2024 6:44 AM CDT DIRECT BILIRUBIN Routine 10/17/2024 6:44 AM CDT CBC W/DIFF AUTOMATED Routine 10/17/2024 6:44 AM CDT MAGNESIUM Routine 10/17/2024 6:44 AM CDT DIGOXIN Routine 10/17/2024 6:44 AM CDT INDIRECT BILIRUBIN Routine 10/16/2024 7: 00 AM CDT COMPREHENSIVE METABOLIC PANEL Routine 10/16/2024 7:00 AM CDT DIRECT BILIRUBIN Routine 10/16/2024 7:00 AM CDT CBC W/DIFF AUTOMATED Routine 10/16/2024 7:00 AM CDT MAGNESIUM Routine 10/16/2024 7:00 AM CDT INDIRECT BILIRUBIN Routine 10/15/2024 6: 12 AM CDT HEMOGLOBIN, GLYCOSYLATED Routine 10/15/2024 6:12 AM CDT COMPREHENSIVE METABOLIC PANEL Routine 10/15/2024 6:12 AM CDT LIPID PANEL Routine 10/15/2024 6:12 AM CDT DIRECT BILIRUBIN Routine 10/15/2024 6:12 AM CDT CBC W/DIFF AUTOMATED Routine 10/15/2024 6:12 AM CDT MAGNESIUM Routine 10/15/2024 6:12 AM CDT TROPONIN, QUANT TIMED 10/14/2024 7:35 PM CDT MRSA SCREENING Routine 10/14/2024 6:20 PM CDT XR CHEST PORTABLE AURORA 10/14/2024 3:1 1 PM CDT ECG 12-LEAD STAT 10/14/2024 2:56 PM CDT COMPREHENSIVE METABOLIC PANEL Routine 10/14/2024 2:11 PM CDT CBC W/DIFF AUTOMATED Routine 10/14/2024 2:11 PM CDT TROPONIN, QUANT TIMED 10/14/2024 2:11 PM CDT THYROID STIM HORMONE TSH Routine 10/14/2024 2:11 PM CDT MAGNESIUM Routine 10/14/2024 2:11 PM CDT PROCALCITONIN (PCT) Routine 10/14/2024 2 :06 PM CDT PRO-BRAIN NATRIURETIC PEPTIDE Routine 10/14/2024 2:06 PM CDT documented in this encounter Results * (ABNORMAL) INDIRECT BILIRUBIN (10/19/2024 6:47 AM CDT) BILIRUBIN INDIRECT S/P/B 1.0(H) 0.0 - 0.9 MG/DL 10/19/2024 7:49 AM CDT [facility] 10/19/2024 6:47 AM CDT us Irene Barrios MD LABORATORY Final Result Performing Organization Address City/[facility] Co de Phone Number [facility] [address] [place] [id number], [place] [phone] * (ABNORMAL) DIRECT BILIRUBIN (10/19/2024 6:47 AM CDT) BILIRUBIN DIRECT S/P/B 0.4(H) 0.0 - 0.20 MG/DL 10/19/2024 7:49 AM CDT [facility] 10/19/2024 6:47 AM CDT us Irene Barrios MD LABORATORY Final Result [facility] [address] [place] [address], [place] [phone] * (ABNORMAL) COMPREHENSIVE METABOLIC PANEL (10/19/2024 6:47 AM CDT) GLUCOSE 113(H) 70 - 99 MG/DL 10/19/2024 7:49 AM CDT [facility] BUN 21(H) 7 - 18 MG/DL 10/19/2024 7:49 AM CDT [facility] CREATININE S/P/B 0.76 0.7 - 1.3 MG/DL 10/19/2024 7:49 AM CDT [facility] SODIUM S/P/B 132(L) 136 - 145 MMOL/L 10/19/2024 7:49 AM CDT [facility] POTASSIUM S/P/B 4.3 3.5 - 5.1 MMOL/L 10/19/2024 7:49 AM CDT [facility] CHLORIDE S/P/B 100 97 - 115 MMOL/L 10/19/2024 7:49 AM CDT [facility] CO2 26.9 21 - 32 MMOL/L 10/19/2024 7:49 AM CDT [facility] CALCIUM S/P/B 8.6 8.5 - 10.1 MG/DL 10/19/2024 7:49 AM CDT [facility] BILIRUBIN TOTAL S/P/B 1.4(H) 0.2 - 1.2 MG/DL 10/19/2024 7:49 AM T [facility] Comment: THIS ASSAY IS NOT RECOMMENDED FOR PATIENTS UNDERGOING TREATMENT WITH ELTROMBOPAG DUE TO THE POTENTIAL FOR FALSELY ELEVATED RESULTS. TOTAL PROTEIN S/P/B 6.2(L) 6.4 - 8.2 G/DL 10/19/2024 7:49 AM CDT [facility] ALBUMIN S/P/B 2.4(L) 3.4 - 5.0 G/DL 10/19/2024 7:49 AM CDT [facility] AST 21 15 - 37 U/L 10/19/2024 7:49 AM CDT [facility] ALT 21 16 - 60 U/L 10/19/2024 7:49 AM CDT [facility] ALKALINE PHOSPHATASE S/P/B 71 50 - 136 U/L 10/19/2024 7:49 AM CDT [facility] ANION GAP 5.1 2 - 10 MMOL/L 10/19/2024 7:49 AM CDT [facility] BUN CREATININE RATIO 27.6(H) 6 - 26 10/19/2024 7:49 AM CDT [facility] A/G RATIO 0.6(L) 1.0 - 2.0 RATIO 10/19/2024 7:49 AM CDT [facility] GFR ESTIMATE >90 >90 ML/MIN/1.7 3 M2 10/19/2024 7:49 AM CDT [facility] Comment: NOTE: eGFR is not calculated for patients <18 years of age or gender unknown. This is an estimated GFR calculation using the new CKD EPI creatinine equation without race and so does not require a correction factor for race. This estimated GFR should not be used for calculating drug doses. 10/19/2024 6:47 AM CDT Irene Barrios MD LABORATORY Final Result [facility] [address] [place] [address], [place] [phone] * (ABNORMAL) CBC W/DIFF AUTOMATED (10/19/2024 6:47 AM CDT) WBC 7.97 4.5 - 11.0 x10'3/uL 10/19/2024 7:39 AM CDT [facility] RBC 6.14(H) 4.70 - 6.10 x10'6/uL 10/19/2024 7:39 AM CDT [facility] HGB 17.4 14.0 - 18.0 G/DL 10/19/2024 7:39 AM CDT [facility] HCT 52.0 43.0 - 54.0 % 10/19/2024 7:39 AM CDT [facility] MCV 84.7 80.0 - 94.0 FL 10/19/2024 7:39 AM CDT [facility] MCH 28.3 27.0 - 31.0 PG 10/19/2024 7:39 AM CDT [facility] MCHC 33.5 32.0 - 36.0 G/DL 10/19/2024 7:39 AM CDT [facility] RDW 14.6(H) 11.5 - 14.5 % 10/19/2024 7:39 AM CDT [facility] PLT 271 130 - 400 x10'3/uL 10/19/2024 7:39 AM CDT [facility] MPV 10.3 9.3 - 12.2 FL 10/19/2024 7:39 AM CDT [facility] DIFFERENTIAL TYPE AUTOMATED DIFFERENTIAL 10/19/2024 7:39 AM CDT [facility] NEUTROPHILS % 65.0 % 10/19/2024 7:39 AM CDT [facility] LYMPHOCYTES % 16.4 % 10/19/2024 7:39 AM CDT [facility] MONOCYTES % 14.9 % 10/19/2024 7:39 AM CDT [facility] EOSINOPHILS 2.5 % 10/19/2024 7:39 AM CDT [facility] BASOPHILS 0.6 % 10/19/2024 7:39 AM CDT [facility] IMMATURE GRANS % 0.6 % 10/20/19 7:39 AM CDT [facility] ABS. NEUTROPHILS 5.17 1.80 - 7.70 x10'3/uL 10/19/2024 7:39 AM CDT [facility] ABS. LYMPHOCYTES 1.31 1.00 - 4.80 x10'3/uL 10/19/2024 7:39 AM CDT [facility] ABS. MONOCYTES 1.19(H) 0.30 - 0.82 x10'3/uL 10/19/2024 7:39 AM CDT [facility] ABS. EOSINOPHILS 0.20 0.04 - 0.54 x10'3/uL 10/19/2024 7:39 AM CDT [facility] ABS. BASOPHILS 0.05 0.01 - 0.08 x10'3/uL 10/19/2024 7:39 AM CDT [facility] ABS. IMMATURE GRANULOCYTES 0.05 0.00 - 0.49 x10'3/uL 10/19/2024 7:39 AM CDT [facility] 10/19/2024 6:47 AM CDT Bhakti Díaz MD LABORATORY Final Result [facility] [address] [place] [id number], * PHOSPHORUS, INORGANIC PHOSPHATE (10/19/2024 6:47 AM CDT) PHOSPHORUS 3.0 2.5 - 4.9 MG/DL 10/19/2024 7:49 AM CDT [facility] 10/19/2024 6:47 AM CDT Irene Barrios MD LABORATORY Final Result [facility] [address] [place] [id number], [place] [phone] * MAGNESIUM (10/19/2024 6:47 AM CDT) MAGNESIUM 2.2 1.8 - 2.4 MG/DL 10/19/2024 7:49 AM CDT [facility] 10/19/2024 6:47 AM CDT Irene Barrios MD LABORATORY Final Result [facility] [address] [place] [address], [place] [phone] * (ABNORMAL) C-REACTIVE PROTEIN (10/19/2024 6:47 AM CDT) C-REACTIVE PROTEIN 8.54(H) <0.29 mg/dL 10/19/2024 7:49 AM CDT [facility] 10/19/2024 6:47 AM CDT Irene Barrios MD LABORATORY Final Result Performing Organization Address City/[facility] Co de Phone Number [facility] [address] [place] [id number], [place] [phone] * PROCALCITONIN (PCT) (10/19/2024 6:47 AM CDT) Procalcitonin <0.05 0.00 - 0.49 NG/ML 10/19/2024 8:53 AM CDT [facility] 10/19/2024 6:47 AM CDT us Irene Barrios MD LABORATORY Final Result Performing Organization Address City/[facility]/ZIP Co de Phone Number [facility] [address] [place] [address], * PROCALCITONIN (PCT) (10/18/2024 6:41 AM CDT) Pathologist [facility] Procalcitonin <0.05 0.00 - 0.49 NG/ML 10/18/2024 11:42 AM CDT [facility] 10/18/2024 6:41 AM CDT Irene Barrios MD LABORATORY Final Result [facility] [address] [place] [address], * (ABNORMAL) CBC W/DIFF AUTOMATED (10/18/2024 6:41 AM CDT) Pathologist [facility] WBC 10.05 4.5 - 11.0 x10'3/uL 10/18/2024 6:55 AM CDT [facility] RBC 5.93 4.70 - 6.10 x10'6/uL 10/18/2024 6:55 AM CDT [facility] HGB 16.9 14.0 - 18.0 G/DL 10/18/2024 6:55 AM CDT [facility] HCT 49.9 43.0 - 54.0 % 10/18/2024 6:55 AM CDT [facility] MCV 84.1 80.0 - 94.0 FL 10/18/2024 6:55 AM CDT [facility] MCH 28.5 27.0 - 31.0 PG 10/18/2024 6:55 AM CDT [facility] MCHC 33.9 32.0 - 36.0 G/DL 10/18/2024 6:55 AM CDT [facility] RDW 14.5 11.5 - 14.5 % 10/18/2024 6:55 AM CDT [facility] PLT 254 130 - 400 x10'3/uL 10/18/2024 6:55 AM CDT [facility] MPV 10.2 9.3 - 12.2 FL 10/18/2024 6:55 AM CDT [facility] DIFFERENTIAL TYPE AUTOMATED DIFFERENTIAL 10/18/2024 6:55 AM CDT [facility] NEUTROPHILS % 68.7 % 10/18/2024 6:55 AM CDT [facility] LYMPHOCYTES % 14.6 % 10/18/2024 6:55 AM CDT [facility] MONOCYTES % 14.4 % 10/18/2024 6:55 AM CDT [facility] EOSINOPHILS 1.4 % 10/18/2024 6:55 AM CDT [facility] BASOPHILS 0.6 % 10/18/2024 6:55 AM CDT [facility] IMMATURE GRANS % 0.3 % 10/19/19 6:55 AM CDT [facility] ABS. NEUTROPHILS 6.90 1.80 - 7.70 x10'3/uL 10/18/2024 6:55 AM CDT [facility] ABS. LYMPHOCYTES 1.47 1.00 - 4.80 x10'3/uL 10/18/2024 6:55 AM CDT [facility] ABS. MONOCYTES 1.45(H) 0.30 - 0.82 x10'3/uL 10/18/2024 6:55 AM CDT [facility] ABS. EOSINOPHILS 0.14 0.04 - 0.54 x10'3/uL 10/18/2024 6:55 AM CDT [facility] ABS. BASOPHILS 0.06 0.01 - 0.08 x10'3/uL 10/18/2024 6:55 AM CDT [facility] ABS. IMMATURE GRANULOCYTES 0.03 0.00 - 0.49 x10'3/uL 10/18/2024 6:55 AM CDT [facility] 10/18/2024 6:41 AM CDT Bhakti Díaz MD LABORATORY Final Result [facility] [address] [place] [address], * (ABNORMAL) BASIC METABOLIC PANEL (10/18/2024 6:41 AM CDT) GLUCOSE 116(H) 70 - 99 MG/DL 10/18/2024 7:12 AM CDT [facility] BUN 22(H) 7 - 18 MG/DL 10/18/2024 7:12 AM CDT [facility] CREATININE S/P/B 0.90 0.7 - 1.3 MG/DL 10/18/2024 7:12 AM CDT [facility] SODIUM S/P/B 128(L) 136 - 145 MMOL/L 10/18/2024 7:12 AM CDT [facility] POTASSIUM S/P/B 4.3 3.5 - 5.1 MMOL/L 10/18/2024 7:12 AM CDT [facility] CHLORIDE S/P/B 96(L) 97 - 115 MMOL/L 10/18/2024 7:12 AM CDT [facility] CO2 25.8 21 - 32 MMOL/L 10/18/2024 7:12 AM CDT [facility] CALCIUM S/P/B 8.5 8.5 - 10.1 MG/DL 10/18/2024 7:12 AM CDT [facility] ANION GAP 6.2 2 - 10 MMOL/L 10/18/2024 7:12 AM CDT [facility] BUN CREATININE RATIO 24.6 6 - 26 10/18/2024 7:12 AM CDT [facility] GFR ESTIMATE 86(L) >90 ML/MIN/1.7 3 M2 10/18/2024 7:12 AM CDT [facility] Comment: NOTE: eGFR is not calculated for patients <18 years of age or gender unknown. This is an estimated GFR calculation using the new CKD EPI creatinine equation without race and so does not require a correction factor for race. This estimated GFR should not be used for calculating drug doses. 10/18/2024 6:41 AM CDT us Lyric GONZALEZ LABORATORY Final R esult Performing Organization Address City/[facility]/ZIP Co de Phone Number [facility] [address] [place] [address], [place] [phone] * (ABNORMAL) INDIRECT BILIRUBIN (10/17/2024 6:44 AM CDT) BILIRUBIN INDIRECT S/P/B 2.1(H) 0.0 - 0.9 MG/DL 10/17/2024 8:10 AM CDT [facility] 10/17/2024 6:44 AM CDT us Johan Oh MD LABORATORY Final Result [facility] [address] [place] [address], [place] [phone] * (ABNORMAL) DIRECT BILIRUBIN (10/17/2024 6:44 AM CDT) BILIRUBIN DIRECT S/P/B 0.7(H) 0.0 - 0.20 MG/DL 10/17/2024 8:10 AM CDT [facility] 10/17/2024 6:44 AM CDT Johan Oh MD LABORATORY Final Result [facility] [address] [place] [address], * DIGOXIN (10/17/2024 6:44 AM CDT) DIGOXIN 0.9 0.8 - 2.0 NG/ML 10/17/2024 2:32 PM CDT [facility] Comment: THERAPEUTIC: 0.8-2.0 TOXIC: >2.4 DOSE UNKNOWN LAST DOSE 10/17/2024 5:11 PM CDT [facility] 10/17/2024 6:44 AM CDT Lyric GONZALEZ LABORATORY Final R esult Performing Organization Address City/[facility]/ZIP Co de Phone Number [facility] [address] [place] [phone], * MAGNESIUM (10/17/2024 6:44 AM CDT) MAGNESIUM 2.0 1.8 - 2.4 MG/DL 10/17/2024 8:10 AM CDT [facility] 10/17/2024 6:44 AM CDT us Johan Oh MD LABORATORY Final Result [facility] [address] [place] [address], [place] [phone] * (ABNORMAL) CBC W/DIFF AUTOMATED (10/17/2024 6:44 AM CDT) [facility] WBC 8.22 4.5 - 11.0 x10'3/uL 10/17/2024 7:04 AM CDT [facility] RBC 5.72 4.70 - 6.10 x10'6/uL 10/17/2024 7:04 AM CDT [facility] HGB 16.2 14.0 - 18.0 G/DL 10/17/2024 7:04 AM CDT [facility] HCT 47.9 43.0 - 54.0 % 10/17/2024 7:04 AM CDT [facility] MCV 83.7 80.0 - 94.0 FL 10/17/2024 7:04 AM CDT [facility] MCH 28.3 27.0 - 31.0 PG 10/17/2024 7:04 AM CDT [facility] MCHC 33.8 32.0 - 36.0 G/DL 10/17/2024 7:04 AM CDT [facility] RDW 14.6(H) 11.5 - 14.5 % 10/17/2024 7:04 AM CDT [facility] PLT 209 130 - 400 x10'3/uL 10/17/2024 7:04 AM CDT [facility] MPV 10.5 9.3 - 12.2 FL 10/17/2024 7:04 AM CDT [facility] DIFFERENTIAL TYPE AUTOMATED DIFFERENTIAL 10/17/2024 7:04 AM CDT [facility] NEUTROPHILS % 69.2 % 10/17/2024 7:04 AM CDT [facility] LYMPHOCYTES % 14.7 % 10/17/2024 7:04 AM CDT [facility] MONOCYTES % 12.8 % 10/17/2024 7:04 AM CDT [facility] EOSINOPHILS 2.2 % 10/17/2024 7:04 AM CDT [facility] BASOPHILS 0.6 % 10/17/2024 7:04 AM CDT [facility] IMMATURE GRANS % 0.5 % 10/18/19 7:04 AM CDT [facility] ABS. NEUTROPHILS 5.69 1.80 - 7.70 x10'3/uL 10/17/2024 7:04 AM CDT [facility] ABS. LYMPHOCYTES 1.21 1.00 - 4.80 x10'3/uL 10/17/2024 7:04 AM CDT [facility] ABS. MONOCYTES 1.05(H) 0.30 - 0.82 x10'3/uL 10/17/2024 7:04 AM CDT [facility] ABS. EOSINOPHILS 0.18 0.04 - 0.54 x10'3/uL 10/17/2024 7:04 AM CDT [facility] ABS. BASOPHILS 0.05 0.01 - 0.08 x10'3/uL 10/17/2024 7:04 AM CDT [facility] ABS. IMMATURE GRANULOCYTES 0.04 0.00 - 0.49 x10'3/uL 10/17/2024 7:04 AM CDT [facility] 10/17/2024 6:44 AM CDT us Johan Oh MD LABORATORY Final Result [facility] [address] [place] [address], [place] [phone] * (ABNORMAL) COMPREHENSIVE METABOLIC PANEL (10/17/2024 6:44 AM CDT) [facility] GLUCOSE 110(H) 70 - 99 MG/DL 10/17/2024 8:10 AM CDT [facility] BUN 19(H) 7 - 18 MG/DL 10/17/2024 8:10 AM CDT [facility] CREATININE S/P/B 0.82 0.7 - 1.3 MG/DL 10/17/2024 8:10 AM CDT [facility] SODIUM S/P/B 131(L) 136 - 145 MMOL/L 10/17/2024 8:10 AM CDT [facility] POTASSIUM S/P/B 4.1 3.5 - 5.1 MMOL/L 10/17/2024 8:10 AM CDT [facility] CHLORIDE S/P/B 99 97 - 115 MMOL/L 10/17/2024 8:10 AM CDT [facility] CO2 25.3 21 - 32 MMOL/L 10/17/2024 8:10 AM CDT [facility] CALCIUM S/P/B 8.3(L) 8.5 - 10.1 MG/DL 10/17/2024 8:10 AM CDT [facility] BILIRUBIN TOTAL S/P/B 2.8(H) 0.2 - 1.2 MG/DL 10/17/2024 8:10 AM CDT [facility] Comment: THIS ASSAY IS NOT RECOMMENDED FOR PATIENTS UNDERGOING TREATMENT WITH ELTROMBOPAG DUE TO THE POTENTIAL FOR FALSELY ELEVATED RESULTS. TOTAL PROTEIN S/P/B 6.0(L) 6.4 - 8.2 G/DL 10/17/2024 8:10 AM CDT [facility] ALBUMIN S/P/B 2.3(L) 3.4 - 5.0 G/DL 10/17/2024 8:10 AM CDT [facility] AST 20 15 - 37 U/L 10/17/2024 8:10 AM CDT [facility] ALT 19 16 - 60 U/L 10/17/2024 8:10 AM CDT [facility] ALKALINE PHOSPHATASE S/P/B 48(L) 50 - 136 U/L 10/17/2024 8:10 AM CDT [facility] ANION GAP 6.7 2 - 10 MMOL/L 10/17/2024 8:10 AM CDT [facility] BUN CREATININE RATIO 23.2 6 - 26 10/17/2024 8:10 AM CDT [facility] A/G RATIO 0.6(L) 1.0 - 2.0 RATIO 10/17/2024 8:10 AM T [facility] GFR ESTIMATE 88(L) >90 ML/MIN/1.7 3 M2 10/17/2024 8:10 AM CDT [facility] Comment: NOTE: eGFR is not calculated for patients <18 years of age or gender unknown. This is an estimated GFR calculation using the new CKD EPI creatinine equation without race and so does not require a correction factor for race. This estimated GFR should not be used for calculating drug doses. 10/17/2024 6:44 AM CDT Lloyd Child [facility] LABORATORY Final Result [facility] [address] [place] [address], * (ABNORMAL) INDIRECT BILIRUBIN (10/16/2024 7:00 AM CDT) BILIRUBIN INDIRECT S/P/B 2.2(H) 0.0 - 0.9 MG/DL 10/16/2024 7:59 AM CDT [facility] 10/16/2024 7:00 AM CDT Johan Oh MD LABORATORY Final Result Performing Organization Address City/[facility]/ZIP Co de Phone Number [facility] [address] [place] [phone], [place] [phone] * (ABNORMAL) DIRECT BILIRUBIN (10/16/2024 7:00 AM CDT) BILIRUBIN DIRECT S/P/B 0.7(H) 0.0 - 0.20 MG/DL 10/16/2024 7:59 AM CDT [facility] 10/16/2024 7:00 AM CDT Johan Oh MD LABORATORY Final Result Performing Organization Address City/[facility]/ZIP Co de Phone Number [facility] [address] [place] [address], [place] [phone] * MAGNESIUM (10/16/2024 7:00 AM CDT) MAGNESIUM 2.0 1.8 - 2.4 MG/DL 10/16/2024 7:59 AM CDT [facility] 10/16/2024 7:00 AM CDT Johan Oh MD LABORATORY Final Result [facility] [address] [place] [phone], [place] [phone] * (ABNORMAL) CBC W/DIFF AUTOMATED (10/16/2024 7:00 AM CDT) [facility] WBC 8.96 4.5 - 11.0 x10'3/uL 10/16/2024 7:32 AM CDT [facility] RBC 5.40 4.70 - 6.10 x10'6/uL 10/16/2024 7:32 AM CDT [facility] HGB 15.7 14.0 - 18.0 G/DL 10/16/2024 7:32 AM CDT [facility] HCT 46.4 43.0 - 54.0 % 10/16/2024 7:32 AM CDT [facility] MCV 85.9 80.0 - 94.0 FL 10/16/2024 7:32 AM CDT [facility] MCH 29.1 27.0 - 31.0 PG 10/16/2024 7:32 AM CDT [facility] MCHC 33.8 32.0 - 36.0 G/DL 10/16/2024 7:32 AM CDT [facility] RDW 14.7(H) 11.5 - 14.5 % 10/16/2024 7:32 AM CDT [facility] PLT 182 130 - 400 x10'3/uL 10/16/2024 7:32 AM CDT [facility] MPV 10.2 9.3 - 12.2 FL 10/16/2024 7:32 AM CDT [facility] DIFFERENTIAL TYPE AUTOMATED DIFFERENTIAL 10/16/2024 7:32 AM CDT [facility] NEUTROPHILS % 72.1 % 10/16/2024 7:32 AM CDT [facility] LYMPHOCYTES % 12.8 % 10/16/2024 7:32 AM CDT [facility] MONOCYTES % 12.3 % 10/16/2024 7:32 AM CDT [facility] EOSINOPHILS 1.8 % 10/16/2024 7:32 AM CDT [facility] BASOPHILS 0.3 % 10/16/2024 7:32 AM CDT [facility] IMMATURE GRANS % 0.7 % 10/17/19 7:32 AM CDT [facility] ABS. NEUTROPHILS 6.46 1.80 - 7.70 x10'3/uL 10/16/2024 7:32 AM CDT [facility] ABS. LYMPHOCYTES 1.15 1.00 - 4.80 x10'3/uL 10/16/2024 7:32 AM CDT [facility] ABS. MONOCYTES 1.10(H) 0.30 - 0.82 x10'3/uL 10/16/2024 7:32 AM CDT [facility] ABS. EOSINOPHILS 0.16 0.04 - 0.54 x10'3/uL 10/16/2024 7:32 AM CDT [facility] ABS. BASOPHILS 0.03 0.01 - 0.08 x10'3/uL 10/16/2024 7:32 AM CDT [facility] ABS. IMMATURE GRANULOCYTES 0.06 0.00 - 0.49 x10'3/uL 10/16/2024 7:32 AM CDT [facility] 10/16/2024 7:00 AM CDT us Johan Oh MD LABORATORY Final Result [facility] [address] [place] [address], [place] [phone] * (ABNORMAL) COMPREHENSIVE METABOLIC PANEL (10/16/2024 7:00 AM CDT) [facility] GLUCOSE 110(H) 70 - 99 MG/DL 10/16/2024 7:59 AM CDT [facility] BUN 19(H) 7 - 18 MG/DL 10/16/2024 7:59 AM CDT [facility] CREATININE S/P/B 0.92 0.7 - 1.3 MG/DL 10/16/2024 7:59 AM CDT [facility] SODIUM S/P/B 136 136 - 145 MMOL/L 10/16/2024 7:59 AM CDT [facility] POTASSIUM S/P/B 4.0 3.5 - 5.1 MMOL/L 10/16/2024 7:59 AM T [facility] CHLORIDE S/P/B 102 97 - 115 MMOL/L 10/16/2024 7:59 AM CDT [facility] CO2 27.1 21 - 32 MMOL/L 10/16/2024 7:59 AM CDT [facility] CALCIUM S/P/B 8.4(L) 8.5 - 10.1 MG/DL 10/16/2024 7:59 AM T [facility] BILIRUBIN TOTAL S/P/B 2.9(H) 0.2 - 1.2 MG/DL 10/16/2024 7:59 AM T [facility] Comment: THIS ASSAY IS NOT RECOMMENDED FOR PATIENTS UNDERGOING TREATMENT WITH ELTROMBOPAG DUE TO THE POTENTIAL FOR FALSELY ELEVATED RESULTS. TOTAL PROTEIN S/P/B 5.7(L) 6.4 - 8.2 G/DL 10/16/2024 7:59 AM CDT [facility] ALBUMIN S/P/B 2.4(L) 3.4 - 5.0 G/DL 10/16/2024 7:59 AM T [facility] AST 18 15 - 37 U/L 10/16/2024 7:59 AM CDT [facility] ALT 17 16 - 60 U/L 10/16/2024 7:59 AM CDT [facility] ALKALINE PHOSPHATASE S/P/B 43(L) 50 - 136 U/L 10/16/2024 7:59 AM CDT [facility] ANION GAP 6.9 2 - 10 MMOL/L 10/16/2024 7:59 AM CDT [facility] BUN CREATININE RATIO 20.6 6 - 26 10/16/2024 7:59 AM CDT [facility] A/G RATIO 0.7(L) 1.0 - 2.0 RATIO 10/16/2024 7:59 AM CDT [facility] GFR ESTIMATE 84(L) >90 ML/MIN/1.7 3 M2 10/16/2024 7:59 AM CDT [facility] Comment: NOTE: eGFR is not calculated for patients <18 years of age or gender unknown. This is an estimated GFR calculation using the new CKD EPI creatinine equation without race and so does not require a correction factor for race. This estimated GFR should not be used for calculating drug doses. 10/16/2024 7:00 AM CDT [facility] LABORATORY Final Result [facility] [address] [place] [address], * (ABNORMAL) INDIRECT BILIRUBIN (10/15/2024 6:12 AM CDT) BILIRUBIN INDIRECT S/P/B 2.1(H) 0.0 - 0.9 MG/DL 10/15/2024 7:25 AM CDT [facility] 10/15/2024 6:12 AM CDT Johan Oh MD LABORATORY Final Result [facility] [address] [place] [phone], * (ABNORMAL) DIRECT BILIRUBIN (10/15/2024 6:12 AM CDT) BILIRUBIN DIRECT S/P/B 0.8(H) 0.0 - 0.20 MG/DL 10/15/2024 7:25 AM CDT [facility] 10/15/2024 6:12 AM CDT us Johan Oh MD LABORATORY Final Result Performing Organization Address [facility] Co de Phone Number [facility] [address] [place] [id number], * HEMOGLOBIN, GLYCOSYLATED (10/15/2024 6:12 AM CDT) HGB A1C 5.2 <5.7 % 10/15/2024 10:27 AM CDT [facility] Comment: ADA GUIDELINES 2010 5.7 TO 6.4% INCREASED RISK OF DIABETES > OR = 6.5% CONSISTENT WITH DIABETES ESTIMATED AVG GLUCOSE 103 mg/dL 10/15/2024 10:27 AM CDT [facility] 10/15/2024 6:12 AM CDT Johan Oh MD LABORATORY Final Result Performing Organization Address City/[facility]/ZIP Co de Phone Number [facility] [address] [place] [phone], [place] [phone] * MAGNESIUM (10/15/2024 6:12 AM CDT) Pathologist [facility] MAGNESIUM 2.2 1.8 - 2.4 MG/DL 10/15/2024 7:25 AM CDT [facility] 10/15/2024 6:12 AM CDT Johan Oh MD LABORATORY Final Result [facility] [address] [place] [address], [place] [phone] * (ABNORMAL) CBC W/DIFF AUTOMATED (10/15/2024 6:12 AM CDT) [facility] WBC 10.71 4.5 - 11.0 x10'3/uL 10/15/2024 7:13 AM CDT [facility] RBC 5.46 4.70 - 6.10 x10'6/uL 10/15/2024 7:13 AM CDT [facility] HGB 15.7 14.0 - 18.0 G/DL 10/15/2024 7:13 AM CDT [facility] HCT 46.6 43.0 - 54.0 % 10/15/2024 7:13 AM CDT [facility] MCV 85.3 80.0 - 94.0 FL 10/15/2024 7:13 AM CDT [facility] MCH 28.8 27.0 - 31.0 PG 10/15/2024 7:13 AM CDT [facility] MCHC 33.7 32.0 - 36.0 G/DL 10/15/2024 7:13 AM CDT [facility] RDW 15.0(H) 11.5 - 14.5 % 10/15/2024 7:13 AM CDT [facility] PLT 171 130 - 400 x10'3/uL 10/15/2024 7:13 AM CDT [facility] MPV 10.9 9.3 - 12.2 FL 10/15/2024 7:13 AM CDT [facility] DIFFERENTIAL TYPE AUTOMATED DIFFERENTIAL 10/15/2024 7:13 AM CDT [facility] NEUTROPHILS % 75.2 % 10/15/2024 7:13 AM CDT [facility] LYMPHOCYTES % 11.8 % 10/15/2024 7:13 AM CDT [facility] MONOCYTES % 10.7 % 10/15/2024 7:13 AM CDT [facility] EOSINOPHILS 1.4 % 10/15/2024 7:13 AM CDT [facility] BASOPHILS 0.4 % 10/15/2024 7:13 AM CDT [facility] IMMATURE GRANS % 0.5 % 10/16/19 7:13 AM CDT [facility] ABS. NEUTROPHILS 8.06(H) 1.80 - 7.70 x10'3/uL 10/15/2024 7:13 AM CDT [facility] ABS. LYMPHOCYTES 1.26 1.00 - 4.80 x10'3/uL 10/15/2024 7:13 AM CDT [facility] ABS. MONOCYTES 1.15(H) 0.30 - 0.82 x10'3/uL 10/15/2024 7:13 AM CDT [facility] ABS. EOSINOPHILS 0.15 0.04 - 0.54 x10'3/uL 10/15/2024 7:13 AM CDT [facility] ABS. BASOPHILS 0.04 0.01 - 0.08 x10'3/uL 10/15/2024 7:13 AM CDT [facility] ABS. IMMATURE GRANULOCYTES 0.05 0.00 - 0.49 x10'3/uL 10/15/2024 7:13 AM CDT [facility] 10/15/2024 6:12 AM CDT us Johan Oh MD LABORATORY Final Result [facility] [address] [place] [address], * (ABNORMAL) COMPREHENSIVE METABOLIC PANEL (10/15/2024 6:12 AM CDT) GLUCOSE 121(H) 70 - 99 MG/DL 10/15/2024 7:25 AM CDT [facility] BUN 24(H) 7 - 18 MG/DL 10/15/2024 7:25 AM CDT [facility] CREATININE S/P/B 1.13 0.7 - 1.3 MG/DL 10/15/2024 7:25 AM CDT [facility] SODIUM S/P/B 134(L) 136 - 145 MMOL/L 10/15/2024 7:25 AM CDT [facility] POTASSIUM S/P/B 3.4(L) 3.5 - 5.1 MMOL/L 10/15/2024 7:25 AM CDT [facility] CHLORIDE S/P/B 99 97 - 115 MMOL/L 10/15/2024 7:25 AM CDT [facility] CO2 26.4 21 - 32 MMOL/L 10/15/2024 7:25 AM CDT [facility] CALCIUM S/P/B 8.7 8.5 - 10.1 MG/DL 10/15/2024 7:25 AM CDT [facility] BILIRUBIN TOTAL S/P/B 2.9(H) 0.2 - 1.2 MG/DL 10/15/2024 7:25 AM T [facility] Comment: THIS ASSAY IS NOT RECOMMENDED FOR PATIENTS UNDERGOING TREATMENT WITH ELTROMBOPAG DUE TO THE POTENTIAL FOR FALSELY ELEVATED RESULTS. TOTAL PROTEIN S/P/B 6.0(L) 6.4 - 8.2 G/DL 10/15/2024 7:25 AM T [facility] ALBUMIN S/P/B 2.7(L) 3.4 - 5.0 G/DL 10/15/2024 7:25 AM CDT [facility] AST 22 15 - 37 U/L 10/15/2024 7:25 AM T [facility] ALT 18 16 - 60 U/L 10/15/2024 7:25 AM T [facility] ALKALINE PHOSPHATASE S/P/B 43(L) 50 - 136 U/L 10/15/2024 7:25 AM T [facility] ANION GAP 8.6 2 - 10 MMOL/L 10/15/2024 7:25 AM T [facility] BUN CREATININE RATIO 21.2 6 - 26 10/15/2024 7:25 AM T [facility] A/G RATIO 0.8(L) 1.0 - 2.0 RATIO 10/15/2024 7:25 AM T [facility] GFR ESTIMATE 65(L) >90 ML/MIN/1.7 3 M2 10/15/2024 7:25 AM T [facility] Comment: NOTE: eGFR is not calculated for patients <18 years of age or gender unknown. This is an estimated GFR calculation using the new CKD EPI creatinine equation without race and so does not require a correction factor for race. This estimated GFR should not be used for calculating drug doses. 10/15/2024 6:12 AM CDT Lloyd Child APRN LABORATORY Final Result [facility] [address] [place] [address], * (ABNORMAL) LIPID PANEL (10/15/2024 6:12 AM CDT) CHOLESTEROL 100 <200 MG/DL 10/15/2024 7:31 AM CDT [facility] TRIGLYCERIDES 76 <150 MG/DL 10/15/2024 7:31 AM CDT [facility] HDL 31(L) >40.0 MG/DL 10/15/2024 7:31 AM CDT [facility] LDL (CALCULATED) 54 <100 MG/DL 10/16/19 7:31 AM CDT [facility] NON HDL CHOLESTEROL 69 <130 MG/DL 10/15 7:31 AM CDT [facility] CHOL/HDL RATIO 3.2 0.0 - 4.5 10/15/2024 7:31 AM CDT [facility] VLDL CALCULATION 15 5 - 55 MG/DL 10/15/2024 7:31 AM CDT [facility] LIPID INTERPRETATION 10/15/2024 7:31 AM CDT [facility] Comment: [facility] CONCENSUS REPORT RECOMMENDATIONS: ADULT CHILD LOW RISK: CHOLESTEROL <200 <170 TRIGLYCERIDE <150 --- HDL >=60 --- LDL <100 <110 BORDERLINE: CHOLESTEROL 200-239 170-199 TRIGLYCERIDE 150-199 --- HDL 40-59 --- LDL 100-159 110-129 HIGH RISK: CHOLESTEROL >=240 >=200 TRIGLYCERIDE >=200 --- HDL <40 --- LDL >=160 >=130 10/15/2024 6:12 AM CDT Lloyd Child [facility] Final Result Performing Organization Address City/[facility]/ZIP Co de Phone Number [facility] [address] [place] [address], * (ABNORMAL) TROPONIN, QUANT (10/14/2024 7:35 PM CDT) TROPONIN I HIGH SENSITIVITY 283(HH) <79 ng/L 10/14/2024 8:14 PM CDT [facility] Comment: NOT CALLED PER CRITICAL VALUE POLICY HIGH DOSES OF BIOTIN, TROPONIN-SPECIFIC AUTOANTIBODIES, AND ANTIBODY THERAPY CONTAINING HAMA MAY INTERFERE WITH THIS TEST RESULT. CORRELATION TO CLINICAL HISTORY AND PRESENTATION RECOMMENDED. 10/14/2024 7:35 PM CDT Lloyd Child APRN LABORATORY Final Result Performing Organization Address [facility]/ZIP Co de Phone Number [facility] [address] [place] [address], [place] [phone] * MRSA SCREENING (10/14/2024 6:20 PM CDT) SPEC DESCRIPTION NASAL 10/15/2024 12:56 AM CDT [facility] SPECIAL REQUESTS NO SPECIAL REQUEST 10/15/2024 12:56 AM CDT [facility] CULTURE RESULT NO METHICILLIN RESISTANT STAPHYLOCOCCUS AUREUS ISOLATED 10/16/2024 6:49 AM CDT [facility] SPECIMEN FROM INTERNAL NOSE / Unknown 10/14/2024 6:20 PM CDT 10/15/2024 12:58 AM CDT Lloyd Child APRN MICROBIOLOGY - GENERAL ORDERAB LES Final Result Performing Organization Address City/[facility]/ZIP Co de Phone Number [facility] [address] [place] [address], [place] [phone] * XR CHEST PORTABLE (10/14/2024 3:11 PM CDT) Anatomical Region Laterality Modality Chest Radiographic Evelina ging 10/14/2024 3:15 PM CDT Impressions 10/14/2024 3:15 PM CDT IMPRESSION: CHF Ordered By: LLOYD CHILD Interpreted By: Girish Ovalle MD, 10/14/2024 3:15 PM Narrative 10/14/2024 3:15 PM CDT [place] [id number] SINGLE VIEW OF THE CHEST Clinical history: Shortness of breath Comparison: None A single view of the chest demonstrates mild cardiomegaly. The pulmonary vessels are obscured by prominent interstitial densities throughout the entirety of both lungs. Small bilateral pleural effusions, right greater than left silhouette both hemidiaphragms. The constellation of findings suggests pulmonary edema related to CHF Procedure Note Girish Ovalle MD - 10/14/2024 [place] [address] SINGLE VIEW OF THE CHEST Clinical history: Shortness of breath Comparison: None A single view of the chest demonstrates mild cardiomegaly. The pulmonaryvessels are obscured by prominent interstitial densities throughout theentirety of both lungs. Small bilateral pleural effusions, right greaterthan left silhouette both hemidiaphragms. The constellation of findingssuggests pulmonary edema related to CHF IMPRESSION: CHF Ordered By: LLOYD CHILD Interpreted By: Girish Ovalle MD, 10/14/2024 3:15 PM Lloyd Child [facility] Final Result * ECG 12 lead (10/14/2024 2:56 PM CDT) 10/14/2024 2:56 PM CDT Narrative [facility] (QI) RAD - 10/15/2024 7:[address] [facility] [address] Test Date: 2024-10-14 Pat Name: SKY MILLERY Department: 40 Room: [id number] Gender: Male Dress Marker: CIRILONG : 1945 Requested By: LLOYD CHILD Order Number: [id number] Reading MD: Marcus Ambrocio Measurements Intervals [place] Rate: 111 P: 0 MA: 0 QRS: -14 QRSD: 90 T: 131 QT: 343 QTc: 467 Interpretive Statements ATRIAL FIBRILLATION WITH RAPID VENTRICULAR RESPONSE NONSPECIFIC T-WAVE ABNORMALITY Compared to ECG 05/26/2021 14:10:18 T-wave abnormality now present Procedure Note Marcus Ambrocio MD - 10/15/2024 [facility] [address] Test Date: 2024-10-14 Pat Name: SKYERIC HURTADO Department: 40 Room: [id number] Gender: Male Dress Marker: CIRILONG : 1945 Requested By: LLOYD CHILD Order Number: [id number] Reading MD: Marcus Ambrocio Measurements Intervals [place] Rate: 111 P: 0 MA: 0 QRS: -14 QRSD: 90 T: 131 QT: 343 QTc: 467 Interpretive Statements ATRIAL FIBRILLATION WITH RAPID VENTRICULAR RESPONSE NONSPECIFIC T-WAVE ABNORMALITY Compared to ECG 05/26/2021 14:10:18 T-wave abnormality now present us Lloyd Child [facility] ECG ORDERABLES Final Result [facility] (QI) RAD * THYROID STIM HORMONE, TSH (10/14/2024 2:11 PM CDT) Pathologist [facility] TSH 1.280 0.358 - 3.74 uIU/ML 10/14/2024 3:36 PM CDT [facility] Comment: HIGH DOSES OF BIOTIN MAY INTERFERE WITH THIS TEST RESULT. CORRELATION TO CLINICAL HISTORY AND PRESENTATION RECOMMENDED. 10/14/2024 2:11 PM CDT [facility] Final Result [facility] [address] [place] [address], [place] [phone] * (ABNORMAL) TROPONIN, QUANT (10/14/2024 2:11 PM CDT) [facility] TROPONIN I HIGH SENSITIVITY 143(HH) <79 ng/L 10/14/2024 3:36 PM CDT [facility] Comment: Critical Result(s) Called at: 15:33:56 on 10/14/2024 by: ILIANA DAY to and read back by: TORY WATTS HIGH DOSES OF BIOTIN, TROPONIN-SPECIFIC AUTOANTIBODIES, AND ANTIBODY THERAPY CONTAINING HAMA MAY INTERFERE WITH THIS TEST RESULT. CORRELATION TO CLINICAL HISTORY AND PRESENTATION RECOMMENDED. 10/14/2024 2:11 PM CDT [facility] Final Result [facility] [address] [place] [address], [place] [phone] * MAGNESIUM (10/14/2024 2:11 PM CDT) Pathologist [facility] MAGNESIUM 2.2 1.8 - 2.4 MG/DL 10/14/2024 3:36 PM CDT [facility] 10/14/2024 2:11 PM CDT Lloyd Child [facility] Final Result [facility] [address] [place] [address], * (ABNORMAL) COMPREHENSIVE METABOLIC PANEL (10/14/2024 2:11 PM CDT) GLUCOSE 122(H) 70 - 99 MG/DL 10/14/2024 3:36 PM CDT [facility] BUN 21(H) 7 - 18 MG/DL 10/14/2024 3:36 PM CDT [facility] CREATININE S/P/B 1.22 0.7 - 1.3 MG/DL 10/14/2024 3:36 PM CDT [facility] SODIUM S/P/B 135(L) 136 - 145 MMOL/L 10/14/2024 3:36 PM CDT [facility] POTASSIUM S/P/B 3.6 3.5 - 5.1 MMOL/L 10/14/2024 3:36 PM CDT [facility] CHLORIDE S/P/B 96(L) 97 - 115 MMOL/L 10/14/2024 3:36 PM CDT [facility] CO2 31.5 21 - 32 MMOL/L 10/14/2024 3:36 PM CDT [facility] CALCIUM S/P/B 8.4(L) 8.5 - 10.1 MG/DL 10/14/2024 3:36 PM CDT [facility] BILIRUBIN TOTAL S/P/B 3.8(H) 0.2 - 1.2 MG/DL 10/14/2024 3:36 PM CDT [facility] Comment: THIS ASSAY IS NOT RECOMMENDED FOR PATIENTS UNDERGOING TREATMENT WITH ELTROMBOPAG DUE TO THE POTENTIAL FOR FALSELY ELEVATED RESULTS. TOTAL PROTEIN S/P/B 6.4 6.4 - 8.2 G/DL 10/14/2024 3:36 PM CDT [facility] ALBUMIN S/P/B 3.0(L) 3.4 - 5.0 G/DL 10/14/2024 3:36 PM CDT [facility] AST 34 15 - 37 U/L 10/14/2024 3:36 PM CDT [facility] ALT 21 16 - 60 U/L 10/14/2024 3:36 PM CDT [facility] ALKALINE PHOSPHATASE S/P/B 50 50 - 136 U/L 10/14/2024 3:36 PM CDT [facility] ANION GAP 7.5 2 - 10 MMOL/L 10/14/2024 3:36 PM CDT [facility] BUN CREATININE RATIO 17.2 6 - 26 10/14/2024 3:36 PM T [facility] A/G RATIO 0.9(L) 1.0 - 2.0 RATIO 10/14/2024 3:36 PM T [facility] GFR ESTIMATE 60(L) >90 ML/MIN/1.7 3 M2 10/14/2024 3:36 PM CDT [facility] Comment: NOTE: eGFR is not calculated for patients <18 years of age or gender unknown. This is an estimated GFR calculation using the new CKD EPI creatinine equation without race and so does not require a correction factor for race. This estimated GFR should not be used for calculating drug doses. 10/14/2024 2:11 PM CDT Lloyd Child APRN LABORATORY Final Result [facility] [address] [place] [address], [place] [phone] * (ABNORMAL) CBC W/DIFF AUTOMATED (10/14/2024 2:11 PM CDT) [facility] Signature WBC 11.59(H) 4.5 - 11.0 x10'3/uL 10/14/2024 2:30 PM CDT [facility] RBC 5.71 4.70 - 6.10 x10'6/uL 10/14/2024 2:30 PM CDT [facility] HGB 16.5 14.0 - 18.0 G/DL 10/14/2024 2:30 PM CDT [facility] HCT 49.7 43.0 - 54.0 % 10/14/2024 2:30 PM CDT [facility] MCV 87.0 80.0 - 94.0 FL 10/14/2024 2:30 PM CDT [facility] MCH 28.9 27.0 - 31.0 PG 10/14/2024 2:30 PM CDT [facility] MCHC 33.2 32.0 - 36.0 G/DL 10/14/2024 2:30 PM CDT [facility] RDW 15.0(H) 11.5 - 14.5 % 10/14/2024 2:30 PM CDT [facility] PLT 189 130 - 400 x10'3/uL 10/14/2024 2:30 PM CDT [facility] MPV 10.5 9.3 - 12.2 FL 10/14/2024 2:30 PM CDT [facility] DIFFERENTIAL TYPE AUTOMATED DIFFERENTIAL 10/14/2024 2:30 PM CDT [facility] NEUTROPHILS % 80.1 % 10/14/2024 2:30 PM CDT [facility] LYMPHOCYTES % 8.5 % 10/14/2024 2:30 PM CDT [facility] MONOCYTES % 10.2 % 10/14/2024 2:30 PM CDT [facility] EOSINOPHILS 0.3 % 10/14/2024 2:30 PM CDT [facility] BASOPHILS 0.3 % 10/14/2024 2:30 PM CDT [facility] IMMATURE GRANS % 0.6 % 10/15/19 2:30 PM CDT [facility] ABS. NEUTROPHILS 9.27(H) 1.80 - 7.70 x10'3/uL 10/14/2024 2:30 PM CDT [facility] ABS. LYMPHOCYTES 0.99(L) 1.00 - 4.80 x10'3/uL 10/14/2024 2:30 PM CDT [facility] ABS. MONOCYTES 1.18(H) 0.30 - 0.82 x10'3/uL 10/14/2024 2:30 PM CDT [facility] ABS. EOSINOPHILS 0.04 0.04 - 0.54 x10'3/uL 10/14/2024 2:30 PM CDT [facility] ABS. BASOPHILS 0.04 0.01 - 0.08 x10'3/uL 10/14/2024 2:30 PM CDT [facility] ABS. IMMATURE GRANULOCYTES 0.07 0.00 - 0.49 x10'3/uL 10/14/2024 2:30 PM CDT [facility] 10/14/2024 2:11 PM CDT us Lloyd Child [facility] Final Result [facility] [address] [place] [address], [place] [phone] * PROCALCITONIN (PCT) (10/14/2024 2:06 PM CDT) Procalcitonin 0.08 0.00 - 0.49 NG/ML 10/14/2024 4:49 PM CDT [facility] 10/14/2024 2:06 PM CDT [facility] LABORATORY Final Result [facility] [address] [place] [address], [place] [phone] * (ABNORMAL) PRO-BRAIN NATRIURETIC PEPTIDE (10/14/2024 2:06 PM CDT) PRO-B TYPE NATRIURETIC PEPTIDE 6,361(H) <450 PG/ML 10/14/2024 3:16 PM CDT [facility] Comment: CUT POINTS ESTABLISHED BY [employer] ON NT PROBNP (ICON) STUDY (2006). AGE INDEPENDENT: <300 PG/ML HAS A 99% NEGATIVE PREDICTIVE VALUE FOR EXCLUDING ACUTE CHF <50 YEARS: >450 PG/ML IS CONSISTENT WITH ACUTE CHF 50-75 YEARS: >900 PG/ML IS CONSISTENT WITH ACUTE CHF >75 YEARS: >1800 PG/ML IS CONSISTENT WITH ACUTE CHF IN PATIENTS WITH RENAL INSUFFICIENCY (GFR <60), >1200 PG/ML YIELDS A DIAGNOSTIC SENSITIVITY AND SPECIFICITY OF 89% AND 72% FOR ACUTE CHF. 10/14/2024 2:06 PM [facility]T [facility] Final Result [facility] [address] [place] [address], [place] [phone] documented in this encounter Visit Diagnoses Diagnosis Atrial fibrillation with RVR ([facility])- Primary Atrial fibrillation Atrial fibrillation ([facility]/HCC) Atrial fibrillation Wound of left lower extremity, initial encounter Recurrent falls Personal history of fall Altered mental status documented in this encounter Admitting Diagnoses Diagnosis Atrial fibrillation with RVR ([facility]/HCC) Atrial fibrillation documented in this encounter Administered Medications Inactive Administered Medications - up to 3 most recent administrations Medication Order MAR Action Action Date Dose Rate Site acetaminophen (TYLENOL) tablet 650 mg 650 mg, Oral, Every 4 hours PRN, Mild pain (Scale 1 - 3), Starting on Sun10/14/24 at 1309, Until Sun10/19/24 at 2313, Maximum dose of acetaminophen is 4000 mg from all sources in 24 hours. albuterol sulfate HFA 108 (90 Base) MCG/ACT inhaler 2 puff 2 puff, Inhalation, Every 4 hours PRN, Wheezing, Shortness of breath, Starting on Sun10/14/24 at 1309, Until Sun10/19/24 at 2313 digoxin (LANOXIN) injection 125 mcg 125 mcg, Intravenous, Every 6 hours, 2 doses, First dose on Sun10/16/24 at 0915, Last dose on Sun10/16/24 at 1515, Administer slowly over at least 5 minutes. For loading (digitalizing) doses, patient must be on telemetry. Given 10/16/2024 3:00 PM CDT 125 mcg Given 10/16/2024 9:50 AM CDT 125 mcg digoxin (LANOXIN) injection 250 mcg 250 mcg, Intravenous, Every 6 hours, 2 doses, First dose on Sun10/15/24 at 1530, Last dose on Sun10/15/24 at 2130, Administer slowly over at least 5 minutes. For loading (digitalizing) doses, patient must be on telemetry. Given 10/15/2024 9:26 PM CDT 250 mcg Given 10/15/2024 4:24 PM CDT 250 mcg digoxin (LANOXIN) tablet 0.125 mg 0.125 mg, Oral, Daily, First dose on Sun10/17/24 at 0900, Until Discontinued Given 10/19/2024 8:35 AM CDT 0.125 mg Given 10/18/2024 8:37 AM CDT 0.125 mg Given 10/17/2024 9:49 AM CDT 0.125 mg donepezil (ARICEPT) tablet 10 mg 10 mg, Oral, Daily, First dose on Sun10/14/24 at 1515, Until Discontinued Given 10/19/2024 8:35 AM CDT 10 mg Given 10/18/2024 8:37 AM CDT 10 mg Given 10/17/2024 9:48 AM CDT 10 mg doxycycline hyclate (VIBRAMYCIN) 100 mg in sodium chloride 0.9 % 100 mL IVPB 100 mg, Intravenous, at 100 mL/hr, Every 12 hours, 28 doses, First dose on Sun10/14/24 at 1600, Last dose on Sun10/28/24 at 0400 New Bag 10/16/2024 4:54 AM CDT 100 mg 100 mL/hr New Bag 10/15/2024 4:44 PM CDT 100 mg 100 mL/hr New Bag 10/15/2024 4:18 AM CDT 100 mg 100 mL/hr doxycycline hyclate (VIBRAMYCIN) capsule 100 mg 100 mg, Oral, Every 12 hours scheduled (2 times per day), 25 doses, First dose on Sun10/16/24 at 2100, Last dose on Sun10/28/24 at 2100 Given 10/19/2024 8:35 AM CDT 100 mg Given 10/18/2024 8:17 PM CDT 100 mg Given 10/18/2024 8:37 AM CDT 100 mg furosemide (LASIX) injection 40 mg 40 mg, Intravenous, Daily, First dose on Sun10/15/24 at 0900, Until Discontinued, Administer IV push 20-40mg/min. Given 10/17/2024 9:49 AM CDT 40 mg Given 10/16/2024 8:28 AM CDT 40 mg Given 10/15/2024 8:30 AM CDT 40 mg furosemide (LASIX) tablet 40 mg 40 mg, Oral, Daily, First dose on Sun10/18/24 at 0900, Until Discontinued Given 10/19/2024 8:34 AM CDT 40 mg Given 10/18/2024 8:37 AM CDT 40 mg heparin (porcine) injection 5,000 Units 5,000 Units, Subcutaneous, 2 times daily, First dose on Sun10/14/24 at 2100, Until Discontinued Given 10/19/2024 8:27 PM CDT 5,000 Units Right Lower Abdomen Given 10/19/2024 8:35 AM CDT 5,000 Units R ight Lower Abdomen Given 10/18/2024 8:17 PM CDT 5,000 Units L eft Lower Abdomen metoprolol tartrate (LOPRESSOR) tablet 100 mg 100 mg, Oral, 2 times daily, First dose on Sun10/14/24 at 2100, Until Discontinued Given 10/19/2024 8:27 PM CDT 100 m g Given 10/19/2024 8:34 AM CDT 100 mg Given 10/18/2024 8:17 PM CDT 100 mg ondansetron (ZOFRAN) injection 4 mg 4 mg, Intravenous, Every 8 hours PRN, Nausea, Vomiting, Starting on Sun10/14/24 at 1309, Until Sun10/19/24 at 2313, IV push over 2-5 minutes. piperacillin-tazobactam (ZOSYN) 3.375 g in sodium chloride 0.9 % 50 mL IVPB 3.375 g, Intravenous, Administer over 240 Minutes, Every 8 hours, 42 doses, First dose on Sun10/14/24 at 2145, Last dose on Sun10/28/24 at 1345, Administer over 4 hours (extended infusion). New Bag 10/19/2024 4:57 AM CDT 3.375 g 20 mL/hr New Bag 10/18/2024 8:21 PM CDT 3.375 g 20 mL/hr New Bag 10/18/2024 2:22 PM CDT 3.375 g 20 mL/hr polyethylene glycol (GLYCOLAX) packet 17 g 17 g, Oral, Daily as needed, Constipation, Starting on Sun10/14/24 at 1309, Until Sun10/19/24 at 2313, If both senna and polyethylene glycol are ordered, use 1st; if no response by next dosing interval, go to next option. potassium chloride CR (K-TAB) tablet 40 mEq 40 mEq, Oral, Once, 1 dose, On Sun10/15/24 at 0800, Do not break, chew, or crush. Given 10/15/2024 8:29 AM CDT 40 mEq QUEtiapine (SEROquel) tablet 25 mg 25 mg, Oral, Nightly at bedtime, First dose on Sun10/14/24 at 2100, Until Discontinued Given 10/19/2024 8:27 PM CDT 25 mg Given 10/18/2024 8:17 PM CDT 25 mg Given 10/17/2024 8:43 PM CDT 25 mg senna-docusate (SENOKOT-S) 8.6-50 MG tablet 1 tablet 1 tablet, Oral, Nightly at bedtime, First dose on Sun10/14/24 at 2100, Until Discontinued Given 10/19/2024 8:27 PM CDT 1 tablet Given 10/18/2024 8:17 PM CDT 1 tablet Given 10/17/2024 8:42 PM CDT 1 tablet spironolactone (ALDACTONE) tablet 25 mg 25 mg, Oral, Daily, First dose on Sun10/15/24 at 0900, Until Discontinued, HAZARDOUS MEDICATION: wear single chemotherapy approved gloves. Do not open or split. If crushing, use approved closed-system crushing device for hazardous medications. Given 10/19/2024 8:35 AM CDT 25 mg Given 10/18/2024 8:37 AM CDT 25 mg Given 10/17/2024 9:48 AM CDT 25 mg tamsulosin (FLOMAX) capsule 0.4 mg 0.4 mg, Oral, Nightly, First dose on Sun10/15/24 at 2100, Until Discontinued Given 10/19/2024 8:27 PM CDT 0.4 mg Given 10/18/2024 8:17 PM CDT 0.4 mg Given 10/17/2024 8:43 PM CDT 0.4 mg documented in this encounter Active and Recently Administered Medications Times are shown in CDT. Scheduled Medication Order 10/17/2024 10/18/2024 10/19/2024 digoxin (LANOXIN) tablet 0.125 mg 0.125 mg, Oral, Daily, First dose on Sun10/17/24 at 0900, Until Discontinued 0949 (Given - Provider: Nancy Glass RN) 0837 (Given - Provider: Nancy Glass RN) 0835 (Given - Provider: Sallie Arriaga RN) donepezil (ARICEPT) tablet 10 mg 10 mg, Oral, Daily, First dose on Sun10/14/24 at 1515, Until Discontinued 0948 (Given - Provider: Nancy Glass RN) 37 (Given - Provider: Nancy Glass RN) 08 (Given - Provider: Sallie Arriaga RN) doxycycline hyclate (VIBRAMYCIN) capsule 100 mg (CANCELED) 100 mg, Oral, Every 12 hours scheduled (2 times per day), 25 doses, First dose on Sun10/16/24 at 2100, Last dose on Sun10/28/24 at 2100 0948 (Given - Provider: Nancy Glass RN)2042 (Given - Provider: Regan Mitchell RN) 836 (Given - Provider: Nancy Glass RN)2016 (Given - Provider: Regan Mitchell RN) 834 (Given - Provider: Sallie Arriaga RN) furosemide (LASIX) injection 40 mg (CANCELED) 40 mg, Intravenous, Daily, First dose on Sun10/15/24 at 0900, Until Discontinued, Administer IV push 20-40mg/min. 0949 (Given - Provider: Nancy Glass RN) furosemide (LASIX) tablet 40 mg 40 mg, Oral, Daily, First dose on Sun10/18/24 at 0900, Until Discontinued 37 (Given - Provider: Nancy Glass RN) 0834 (Given - Provider: Sallie Arriaga RN) heparin (porcine) injection 5,000 Units(Linked Group 1) 5,000 Units, Subcutaneous, 2 times daily, First dose on Sun10/14/24 at 2100, Until Discontinued 0949 (Given - Provider: Nancy Glass RN)2042 (Given - Provider: Regan Mitchell RN) 836 (Given - Provider: Nancy Glass RN)2016 (Given - Provider: Regan Mitchell RN) 0835 (Given - Provider: Sallie Arriaga RN)2026 (Given - Provider: Regan Mitchell RN) metoprolol tartrate (LOPRESSOR) tablet 100 mg 100 mg, Oral, 2 times daily, First dose on Sun10/14/24 at 2100, Until Discontinued 0948 (Given - Provider: Nancy Glass RN)2042 (Given - Provider: Regan Mitchell RN) 0837 (Given - Provider: Nancy Glass RN)2016 (Given - Provider: Regan Mitchell RN) 0834 (Given - Provider: Sallie Arriaga RN)2026 (Given - Provider: Regan Mitchell RN) piperacillin-tazobactam (ZOSYN) 3.375 g in sodium chloride 0.9 % 50 mL IVPB (CANCELED) 3.375 g, Intravenous, Administer over 240 Minutes, Every 8 hours, 42 doses, First dose on Sun10/14/24 at 2145, Last dose on Sun10/28/24 at 1345, Administer over 4 hours (extended infusion). 0047 (Infusion Stop Time - Provider: Marcie Tanner RN)0550 (New Bag - Provider: Marcie Tanner RN)0947 (Infusion Stop Time - Provider: Nancy Glass RN)1430 (New Bag - Provider: Nancy Glass RN)1805 (Infusion Stop Time - Provider: Marcie Tanner RN)204 (New Bag - Provider: Regan Mitchell RN) 0103 (Infusion Stop Time - Provider: Regan Mitchell RN)0503 (New Bag - Provider: Regan Mitchell RN)0941 (Infusion Stop Time - Provider: Nancy Glass RN)1422 (New Bag - Provider: Nancy Galss RN)1800 (Infusion Stop Time - Provider: Priscilla Abraham RN)202 (New Bag - Provider: Regan Mitchell RN) 0031 (Infusion Stop Time - Provider: Regan Mitchell RN)0457 (New Bag - Provider: Regan Mitchell RN)0942 (Infusion Stop Time - Provider: Sallie Arriaga RN) QUEtiapine (SEROquel) tablet 25 mg 25 mg, Oral, Nightly at bedtime, First dose on Sun10/14/24 at 2100, Until Discontinued 2042 (Given - Provider: Regan Mitchell RN) 2016 (Given - Provider: Regan Mitchell RN) 2026 (Given - Provider: Regan Mitchell RN) senna-docusate (SENOKOT-S) 8.6-50 MG tablet 1 tablet 1 tablet, Oral, Nightly at bedtime, First dose on Sun10/14/24 at 2100, Until Discontinued 2041 (Given - Provider: Regan Mitchell RN) 2016 (Given - Provider: Regan Mitchell RN) 2026 (Given - Provider: Regan Mitchell, RN) spironolactone (ALDACTONE) tablet 25 mg 25 mg, Oral, Daily, First dose on Sun10/15/24 at 0900, Until Discontinued, HAZARDOUS MEDICATION: wear single chemotherapy approved gloves. Do not open or split. If crushing, use approved closed-system crushing device for hazardous medications. 0948 (Given - Provider: Nancy Glass, PRESLEY) 0837 (Given - Provider: Nancy Glass RN) 0835 (Given - Provider: Sallie Arriaga RN) tamsulosin (FLOMAX) capsule 0.4 mg 0.4 mg, Oral, Nightly, First dose on Sun10/15/24 at 2100, Until Discontinued 2042 (Given - Provider: Regan Mitchell RN) 2016 (Given - Provider: Regan Mitchell RN) 2026 (Given - Provider: Regan Mitchell RN) PRN Medication Order 10/17/2024 10/18/2024 10/19/2024 acetaminophen (TYLENOL) tablet 650 mg 650 mg, Oral, Every 4 hours PRN, Mild pain (Scale 1 - 3), Starting on Sun10/14/24 at 1309, Until 10/19/24 at 2313, Maximum dose of acetaminophen is 4000 mg from all sources in 24 hours. albuterol sulfate HFA 108 (90 Base) MCG/ACT inhaler 2 puff 2 puff, Inhalation, Every 4 hours PRN, Wheezing, Shortness of breath, Starting on Sun10/14/24 at 1309, Until 10/19/24 at 2313 ondansetron (ZOFRAN) injection 4 mg 4 mg, Intravenous, Every 8 hours PRN, Nausea, Vomiting, Starting on Sun10/14/24 at 1309, Until 10/19/24 at 2313, IV push over 2-5 minutes. polyethylene glycol (GLYCOLAX) packet 17 g 17 g, Oral, Daily as needed, Constipation, Starting on Sun10/14/24 at 1309, Until 10/19/24 at 2313, If both senna and polyethylene glycol are ordered, use 1st; if no response by next dosing interval, go to next option. Linked Groups Order Group 1: heparin (porcine) injection 5,000 UnitsJump to med 5,000 Units, Subcutaneous, 2 times daily, First dose on Sun10/14/24 at 2100, Until Discontinued And Place sequential compression device (CANCELED) Routine, Once, On Sun10/14/24 at 1456, For 1 occurrence And Intermittent Pneumatic Compression Device Applied (COMPLETED) And Assess Sequential Compression Device (Assess skin at a minimum of every shift) (CANCELED) Routine, Every shift, First occurrence on Sun10/14/24 at 1456 And Maintain Sequential Compression Device (COMPLETED) Routine, Daily, First occurrence on Sun10/15/24 at 0600 And HIGH RISK FOR VTE (COMPLETED) documented in this encounter Care Teams Aircraft Systems Technician Relationship Specialty Start Date End Date De Martines MD PCP - General FAMILY PRACTICE 03/13/17 10/16/24 Hernandez Martines MD [address] [place] [address] PCP - General FAMILY PRACTICE 10/17/24 Ever Kirby MD CARDIOVASCULAR DISEASE 03/13/17 Mirza Sepulveda MD INTERVENTIONAL CARDIOLOGY 12/10/17 Froylan Galvan MD Consulting Physician CLINICAL CARDIAC ELECTROPHYSIOLOGY 12/12/18 Evelyn Tenorio NP Referring Physician CARDIOVASCULAR DISEASE 01/22/19 documented as of this encounter
--- OUTSIDE RECORDS SUMMARY | 2024-10-20 01:28 | XMS_ITS | Encounter Summary ---
Author Organization [facility] Address [address] [place] [address] Care Team Providers Care Manager Integration Name Role Phone Sam Shipley MD Primary Care Provider Unavailab emani Simpson MD, Ever Unavailable [phone] Mirza Sepulveda MD Unavailable [phone] Froylan Galvan MD Unavailable UnavailEvelyn Spicer NP Unavailable Unavailable Hernandez Shipley MD Primary Care Provider [phone] Reason for Visit * Reason Comments Echo (SCAN) Encounter Details Date Type Department Care Team (Late st Contact Info) Description 10/13/2024 Scan [facility] [address] [place] [address] Scanned, Doc Pccl Echo (SCAN) Social History Tobacco Use Types Packs/Day Years Used Date Smoking Tobacco: Former Smokeless Tobacco: Former Chew Alcohol Use Standard Drinks/Week Comments No 0 (1 standard drink = 0.6 oz pur e alcohol) Quit drinking in 1990 [facility] Utilities Answer Date Recorded In the past 12 months has [employer] electric, gas, oil, or water [employer] threatened to shut off services in your [...] No 10/14/2024 Housing Stability Vital Sign Answer Favian e Recorded In the last 12 months, was t here a time when you were not able to pay the mortgage or rent on time? No 10/14/2024 In the past 12 months, how m any times have you moved where you were living? 0 10/14/2024 At any time in the [facility], were you homeless or living in a alf (including now)? No 10/14/2024 Sex and Gender Information Value Date Recorded Sex Assigned at Male 10/14/2024 1:18 PM CDT Legal Sex Male 6:56 PM CDT Gender Identity Not on file Sexual Orientation Not on file documented as of this encounter Functional Status * Question Answer Date of Assessment Author Status Do you have serious difficulty walking or climbing stairs? Yes 10/14/2024 2:09 PM CDT Luci Hurtado RN Ac tive * Question Answer Date of Assessment Author Status Do you have difficulty dressing or bathing? Yes 10/14/2024 2:09 PM Luci Luong R N Active Because of a physical, mental, or emotional condition, do you have difficulty doing errands alone such as visiting a doctor's office or shopping? Yes 10/14/2024 2:09 PM Luci Luong RN Act yolanda * Intimate Partner Violence [...] 2:19 PM Luci Luong RN Active * Question [...] 2:15 PM Willian Luong RN Active * [place] Suicide Severity Rating Scale (Screener/Recent Self-Report) Question Answer Date of Assessment Author Status 1. Wish to be (Past 1 Month) No 10/14/2024 2:15 PM Luci Luong RN Act yolanda 2. Non-Specific Active Suicidal Thoughts (Past 1 Month) No 10/14/2024 2:15 PM Luci Luong RN Act yolanda 6. Suicidal Behavior (Lifetime) No 10/14/2024 2:15 PM CDT Luci Hrutado RN Act yolanda documented as of this encounter Mental Status * Question Answer Entry Date Author Status Because of a physical, mental, or emotional condition, do you have serious difficulty concentrating, remembering, or making decisions? Yes 10/14/2024 2:09 PM CDT Luci Hurtado, R N Active documented in this encounter Plan of Treatment Upcoming Encounters Date Type Department Care Team (Late st Contact Info) Description 10/20/2024 12:00 PM CDT Appointment [address] [place] [address] [place] [address] Hilary De León RN [phone] (Work) documented as of this encounter Procedures Procedure Name Priority Date/Time Associated Diagnosis Comments ECHO GENERIC (SCAN ORDER) Routine 10/13/2024 documented in this encounter Results * ECHO (10/13/2024) Anatomical Region Laterality Modality Other us Doc Pccl Scanned SCANNING Final Result documented in this encounter Visit Diagnoses Not on filedocumented in this encounter Care Teams Manager Integration Relationship Specialty Start Date End Date Sam Shipley MD PCP - General FAMILY PRACTICE 03/13/17 10/16/24 Hernandez Shipley MD [address] [place] [address] PCP - General FAMILY PRACTICE 10/17/24 Ever Kirby MD CARDIOVASCULAR DISEASE 03/13/17 Mirza Sepulveda MD INTERVENTIONAL CARDIOLOGY 12/10/17 Froylan Galvan MD Consulting Physician CLINICAL CARDIAC ELECTROPHYSIOLOGY 12/12/18 Evelyn Tenorio NP Referring Physician CARDIOVASCULAR DISEASE 01/22/19 documented as of this encounter
--- OUTSIDE RECORDS SUMMARY | 2024-10-20 01:28 | XMS_ITS | Continuity of Care Document ---
Author Organization [facility] Address [address] [place] [address] Phone Care Team Providers Care Professor Of Rhetoric Name Role Phone Taj Paiz MD Unavailable Unavailable Allergies, Adverse Reactions, Alerts Substance Reaction Status Criticality PSEUDOEPHEDRINE HCL Unknown(unknown) Active Unab le to Assess DIPHENHYDRAMINE HCL Retention of urine(severe) Active High PENICILLIN Fever(severe)Rash(severe)Rash(severe) Act yolanda High Medications Medication Instructions Dosage Effective Dates (start - stop) Status Comments ketorolac 0.5 % eye drops instill 1 drop in operative eye QID for 9 days starting 2 days prior to surgery Disp 5ml - Active ofloxacin 0.3 % eye drops instill 1 drop to operative eye QID x 9 days starting 2 days before surgery Disp 5ml - Active prednisolone acetate 1 % eye drops,suspension Instill 1 drop QID to the operative eye starting 2 days before surgery, continue for 7 days after, then BID until advised otherwise by physician Disp 10 ml - Active Vazalore 81 mg capsule take 1 capsule by oral route every day 81 MG - Active azelastine 137 mcg (0.1 %) nasal spray aerosol spray 2 spray by intranasal route 2 times every day in each nostril - Active diazepam 5 mg tablet take 1 tablet by oral route 2 times every day 5 MG - Active diclofenac 1 % topical gel apply 2 gram by topical route 4 times every day to the affected area(s) 2.00 gram - Active donepezil 10 mg tablet take 1 tablet by oral route every day in the evening 10 MG - Active haloperidol 2 mg tablet take 1 tablet by oral route 2 times every day 2 MG - Active losartan 25 mg tablet take 1 tablet by oral route every day 25 MG - Active metoprolol tartrate 50 mg tablet take 1 tablet by oral route 2 times every day with meals 50 MG - Active mupirocin 2 % topical ointment apply by topical route 2 times every day a small amount to the affected area Not Available - Active oxybutynin chloride ER 10 mg tablet,extended release 24 hr take 1 tablet by oral route every day 10 MG - Active Procedures Procedure Date REFRACTION POSTOP FOLLOW-UP VISIT POSTOP FOLLOW-UP VISIT CATARACT SURG W/IOL Post Operative Kit / Medical Supply By P rescription EYE EXAM, NEW PATIENT IOL MASTER Advance Directives Directive Yes / No Effective Date File Name No Information Encounters Encounter Description Practice Location Reason(s) For Visit Diagnoses Date Provider Providers Copied on Encounter [facility], [address] [place] [address], [id number] , tel:[phone] [facility] No Information 4 Chencho Vang. [address] [place] [address], [id number], [place]. tel:[phone] [facility], [address] [place] [address], [id number] , [place] tel:[phone] [facility] No Information 4 Chencho Vang. [address] [place] [address], [id number], [place]. tel:[phone] [facility], [address] [place] [address], [id number] , tel:[phone] [facility]chief [facility]) Age-related nuclear cataract, left eyePresence of intraocular lensDry eye syndrome of bilateral lacrimal glandsRegular astigmatism, bilateralPresb yopiaHypermetr opia, right eyeMyopia, left eye 4 Nhan Peguero. [address], [place], [place], [id number], [place]. tel:[phone] Referring Provider: Marielena Field, [address], [place], [address]. [phone] [facility], [address] [place] [address], [id number] , [place] tel:[phone] [facility] redness OD (chief complaint) Cataract extraction status, right eyePresence of intraocular lensSecondary corneal edema, right eye 4 Dian Mccormick. [address] [place] [address], [id number], [place]. tel:[phone] Referring Provider: Jace Field, [address] [place] [address], [id number]. tel:[phone] [facility], [facility], [address] [place] [address], [id number] , [place] tel:[phone] [facility] PO 1 day cat Sx (chief complaint) Cataract extraction status, right eye 4 Nhan Peguero. [address], [place], [place], [id number], [place]. [phone] Referring Provider: Marielena Field, [address], [place], [address]. [phone] [facility], [facility], [address] [place] [address], [id number] , [place] tel:[phone] [facility] No Information 4 Chencho Vang. [address] [place] [address], [id number], [place]. tel:[phone] Referring Provider: Taj Otto, [address] [place] [address], [id number]. tel:[phone] [facility], [address] [place] [address], [id number] , tel:[phone] [facility] No Information 4 Chencho Taj. [address] [place] [address], [id number], . tel:[phone] Referring Provider: Jigna Yu, [facility] [address] [place], [address]. [phone] [facility], [address] [place] [address], [id number] , tel:[phone] [facility]- cataract evaluation (chief complaint) Myopia, bilateralRegul ar astigmatism, bilateralPresb yopia 3 Chencho Vang. [address] [place] [address], [id number], . tel:[phone] Referring Provider: Taj Otto, [address] [place] [address], [id number]. tel:[phone] Family History Family Member Type Diagnosis Age At Onset No Information Payers Payer name Insurance type Covered libertarian ID Authoriza tion(s) No Information Social History Type Description Quantity Date Captured Comments Alcohol Use Details Unknown Caffeine Use Details Unknown Tobacco Use Status No Information Smoking Status Former smoker Sex Male Chief Complaint And Reason For Visit No Information Reason For Referral Reason For Referral No Information History Of Present Illness Encounter Date Complaint History Of Prese nt Illness s/p IOL OU The 78 year old patient presents for s/p IOL OU. Pt. had Basic KPE c PC Basic IOL, OD on 07/24/2023 and OS on 07/31/2023. Pt. states D and N vision OU sc gls has improved since having surgery. pt. denies pain OU and use of gtts. redness OD The 78 year old patient presents for evaluation of redness OD. Pt was set for Cataract sx OS and was sent from [facility] for redness OD. OD VA good, constant and stable D&N sc. OS VA is blurry and dim D&N sc. OD is red and slightly inflamed. Pt denies pain and discomfort OU. Pt is using Prednisolone gtts OD BID. PO 1 day cat Sx The 78 year old patient presents for evaluation of PO 1 day Cat Sx in the right eye. Pt reports a headaches and some pain OD. Pt states things are much brighter today and Pt reports OS blurry. Patient denies: drop problems and is using correctly. cataract evaluation The 78 year old patient[facility]. PT reports VA is very blurry D & N OU cc for quite a while. PT reports VA is making it difficult do some day to day tasks. PT pain or discomfort. PT is using OTC Saline QD OU c relief.PT reports double vision cc and sc. Functional Status Date Functional Assessmen t No Information Instructions Date Instruction Additional Infor irena Impression/Plan Impression/Plan Impression/Plan Related to Catar act extraction status, right eye Impression/Plan Assessments Type Assessment Date No Information Patient Care Teams Name Effective Dates (start - stop) Status Members No Information
--- OUTSIDE RECORDS SUMMARY | 2024-10-20 01:28 | XMS_ITS | Clinical Summary ---
Author Organization [facility] Address [address] [place] [address] Care Team Providers Care Spanner Operator Name Role Phone Kofi Simpson MD, Robert Unavailable [phone] Mirza Sepulveda MD Unavailable [phone] Froylan Galvan MD Unavailable UnavailEvelyn Spicer NP Unavailable Unavailable Hernandez Shipley MD Primary Care Provider [phone] Allergies Active Allergy Reactions Criticality Noted Date Comments Penicillins Nausea Only Medium 12/17/2015 Pseudoephedrine Dizziness Medium 12/11/2017 Medications donepezil (ARICEPT) 10 MG TabIndications :dementia Take 1 tablet (10 mg total) by mouth daily for 30 days. Indications: dementia 30 tablet 10/20/19 25 025 Active furosemide (LASIX) 40 MG tabletIndicati ons:CHF Take 1 tablet (40 mg total) by mouth daily for 30 days. Indications: CHF 30 tablet 10/21/19 25 025 Active metoprolol tartrate (LOPRESSOR) 100 MG tabletIndicati ons:chf; HTN, A fib Take 1 tablet (100 mg total) by mouth 2 (two) times daily for 30 days. Indications: chf; HTN, A fib 60 tablet 10/20/19 25 025 Active digoxin (LANOXIN) 0.125 MG tabletIndicati ons:a fib Take 1 tablet (0.125 mg total) by mouth daily. Indications: a fib 30 tablet 10/21/19 Active QUEtiapine (SEROQUEL) 25 MG tabletIndicati ons:dementia Take 1 tablet (25 mg total) by mouth nightly at bedtime for 30 days. Indications: dementia 30 tablet 10/20/19 Active spironolactone (ALDACTONE) 25 MG tabletIndicati ons:chf Take 1 tablet (25 mg total) by mouth daily for 30 days. Indications: chf 30 tablet 10/21/19 Active tamsulosin (FLOMAX) 0.4 MG CapIndications :urinary retention Take 1 capsule (0.4 mg total) by mouth nightly for 30 days. Indications: urinary retention 30 capsule 10/20/19 Active azelastine 0.1 % nasal spray INSTILL 2 SPRAYS IN EACH NOSTRIL ONCE DAILY 3 11/13/19 18 025 Discontinued(St op Taking at Discharge) fish oil 1000 MG Cap capsule Take 2,000 mg by mouth daily. 025 Discontinued(St op Taking at Discharge) multi vitamin/minera ls tablet Take 3 tablets by mouth daily. 025 Discontinued(St op Taking at Discharge) Probiotic Product (PROBIOTIC ADVANCED) Cap Discontinued(St op Taking at Discharge) vitamin C 1000 MG tablet Take 1,000 mg by mouth daily. 025 Discontinued(St op Taking at Discharge) vitamin D3, cholecalcifero l, 5000 UNITS capsule Take 1 capsule by mouth daily. 025 Discontinued(St op Taking at Discharge) vitamin B-2 100 MG tablet Take 100 mg by mouth daily. 025 Discontinued(St op Taking at Discharge) MYRBETRIQ 50 MG 24 hr tablet Take 50 mg by mouth daily. 11 10/25/19 19 025 Discontinued(St op Taking at Discharge) Menaquinone-7 (VITAMIN K2 OR) 025 Discontinued(St op Taking at Discharge) Misc Natural Products (TURMERIC CURCUMIN) capsule Take 2 capsules by mouth daily. 025 Discontinued(St op Taking at Discharge) metoprolol succinate ER 100 MG 24 hr tablet Take 1 tablet (100 mg total) by mouth 2 (two) times a day. 180 tablet 3 04/19/20 025 Discontinued(St op Taking at Discharge) diazePAM 5 MG tablet 2 (two) times daily. 04/20/20 025 Discontinued(St op Taking at Discharge) oxybutynin XL 10 MG 24 hr tablet 04/20/20 025 Discontinued(St op Taking at Discharge) metoprolol tartrate (LOPRESSOR) 100 MG tablet Take 1 tablet (100 mg total) by mouth 2 (two) times daily. 025 Discontinued donepezil (ARICEPT) 10 MG Tab Take 1 tablet (10 mg total) by mouth daily. Discontinued furosemide (LASIX) 20 MG tablet Take 1 tablet (20 mg total) by mouth daily. Discontinued(St op Taking at Discharge) meclizine (ANTIVERT) 25 MG tablet Take 1 tablet (25 mg total) by mouth 2 (two) times daily as needed for Dizziness. Discontinued(St op Taking at Discharge) furosemide (LASIX) 40 MG tabletIndicati ons:CHF Take 1 tablet (40 mg total) by mouth daily for 30 days. Indications: CHF 30 tablet 10/21/19 Discontinued digoxin (LANOXIN) 0.125 MG tabletIndicati ons:a fib Take 1 tablet (0.125 mg total) by mouth daily. Indications: a fib 30 tablet 10/21/19 Discontinued QUEtiapine (SEROQUEL) 25 MG tabletIndicati ons:dementia Take 1 tablet (25 mg total) by mouth nightly at bedtime for 30 days. Indications: dementia 30 tablet 10/20/19 Discontinued tamsulosin (FLOMAX) 0.4 MG CapIndications :urinary retention Take 1 capsule (0.4 mg total) by mouth nightly for 30 days. Indications: urinary retention 30 capsule 10/20/19 Discontinued spironolactone (ALDACTONE) 25 MG tabletIndicati ons:chf Take 1 tablet (25 mg total) by mouth daily for 30 days. Indications: chf 30 tablet 10/21/19 025 Discontinued Active Problems Problem Noted Date Diagnosed Date Atrial fibrillation with RVR (CMS/[facility]) 0 10/14/2024 Acquired hallux rigidus 10/14/2024 Overview (10/14/2024): Podiatry eval of bilateral foot pain 11/2020 Acute chest pain 10/14/2024 Overview (10/14/2024): [facility] ER visit 01/15/22, workup unimpressive. Allergic rhinitis 10/14/2024 Altered mental status 10/14/2024 Overview (10/14/2024): [facility] ER visit x2 in 1 day p eloping from home, found by PD covered in stool, [facility] ER work up and transferred to [facility]. Asymmetrical sensorineural hearing loss 10/15/19 25 Overview (10/14/2024): w/ tinnitus Basal cell carcinoma of back 10/14/2024 Cataract 10/14/2024 Overview (10/14/2024): surgical tx planned for February 2024. Cyst of pancreas ([facility]) 10/14/2024 Overview (10/14/2024): incidental on CT 11/2017. Edema of lower extremity 10/14/2024 Overview (10/14/2024): hx Tx PRN Lasix (and again in Nursery ER visit 04/13/24) then started schedule 20mg Lasix Impaired cognition 10/14/2024 Overview (10/14/2024): mild, progressive decline since late age 70's (s/o dementia). Hx f/b [facility] Neurology w/ Tx Donepazil in (MMSE 24/30 then) until pt declined both in . Increased frequency of urination 10/14/2024 Overview (10/14/2024): cystoscopy 04/2016: enlarged prostate, no malignancy or urethral stricture. s/p PhotoVaporization of Prostate (PVP) 03/2017. Insomnia 10/14/2024 Overview (10/14/2024): (see also anxiety). Hx of tx w/ [facility] No meds as of - hx PRN diazepam. Knee pain 10/14/2024 Overview (10/14/2024): right presumed OA, to f/u w/ Ortho ([facility]) PRN. Mixed anxiety and depressive disorder 10/14/2024 Overview (10/14/2024): Anxiety manifesting as (or complicated by) insomnia & dizziness, controlled w/ PRN Diazepam. - hx citalopram tx 11/2017-11/2020 Multiple actinic keratoses 10/14/2024 Pain in elbow 10/14/2024 Overview (10/14/2024): suspected osteoarthritis on eval 08/2021. Recurrent falls 10/14/2024 Overview (10/14/2024): Nursery ER 10/12/24 w/ XR concerning for possible Left distal Radial (non- displaced) fracture (and consider CT). Recurrent major depression in full remission 02/2025 Encounter for screening for lipoid disorders 04/2024 History of artificial eye lens 07/31/2023 History of right cataract extraction 07/31/2023 Myopia of both eyes 06/22/2023 Presbyopia 06/22/2023 Regular astigmatism of both eyes 06/22/2023 Essential hypertension 05/29/2019 Atrial fibrillation 04/03/2018 Coronary artery calcification seen on CT scan Abnormal CT of the chest 12/19/2017 Thoracoabdominal aortic aneurysm (TAAA) 12/20/19 18 Encounters Date Type Department Care Team Description 10/14/2024 12:58 PM CDT - 10/19/2024 9:13 PM CDT Hospital Encounter [facility] [place] [address] Johan Oh MD Hussaini, Kamran, MD Islam, Maaroof, MD Discharge Disposition: Home with Home Health Care 10/14/2024 Travel 10/13/2024 Scan [facility] [address] [place] [id number] Scanned, Doc Pccl Echo (SCAN) from Last 3 Months Family History Medical History Relation Comments Hypertension Father Relation Status Comments Brother Alive Father Maternal Grandfather Maternal Grandmother Mother Paternal Grandfather Paternal Grandmother Social History Tobacco Use Types Packs/Day Years Used Date Smoking Tobacco: Former Smokeless Tobacco: Former Chew Tobacco Cessation:Counseling Given: No Alcohol Use Standard Drinks/Week Comments No 0 (1 standard drink = 0.6 oz pur e alcohol) Quit drinking in 1990 [facility] Utilities Answer Date Recorded In the past 12 months has [facility] [employer], gas, oil, or water [employer] threatened to shut off services in your [...] time in the past [address] [facility], were you homeless or living in a half-way (including now)? No 10/14/2024 Sex and Gender Information Value Date Recorded Sex Assigned at Male 10/14/2024 1:18 PM CDT Legal Sex Male 6:56 PM CDT Gender Identity Not on file Sexual Orientation Not on file Last Filed Vital Signs Vital Sign Reading [...] Mass Index 29.28 10/16/2024 7:51 AM CDT Plan of Treatment Upcoming Encounters Date Type Department Care Team (Late st Contact Info) Description 10/20/2024 12:00 PM CDT Appointment [address] [place] [address] Hilary De León, RN [phone] (Work) Health Maintenance Due Date Last Done Comments DTaP, Tdap and Td Vaccines ( 1 - Tdap) 1962 Pneumococcal Vaccine: 50+ Years (1 of 1 - PCV) 1993 Zoster Vaccines (1 of 2) 1993 Annual Medicare Wellness Visit 02/08/2008 RSV Immunization or 60+ Years (1 - 1-dose 75+ series) 2018 COVID-19 Vaccine (3 - 2023-2 5 season) 2024 04/14/2021, 03/24/2021 Meningococcal B Vaccine Aged Out No l onger eligible based on patient's age to complete this topic Meningococcal Vaccine Aged Out No jasmin thad eligible based on patient's age to complete this topic RSV Immunizations Under 20 Months Aged Out No longer eligible b ased on patient's age to complete this topic Procedures Procedure Name Priority Date/Time Associated Diagnosis Comments INDIRECT BILIRUBIN Routine 10/19/2024 6: 47 AM CDT DIRECT BILIRUBIN Routine 10/19/2024 6:47 AM CDT PHOSPHORUS, INORGANIC PHOSPHATE Routine 10/19/2024 6:47 AM CDT MAGNESIUM Routine 10/19/2024 6:47 AM CDT COMPREHENSIVE METABOLIC PANEL Routine 10/19/2024 6:47 AM CDT C-REACTIVE PROTEIN Routine 10/19/2024 6: 47 AM CDT PROCALCITONIN (PCT) Routine 10/19/2024 6 :47 AM CDT CBC W/DIFF AUTOMATED Routine 10/19/2024 6:47 AM CDT PROCALCITONIN (PCT) Routine 10/18/2024 6 :41 AM CDT CBC W/DIFF AUTOMATED Routine 10/18/2024 6:41 AM CDT BASIC METABOLIC PANEL Routine 10/18/2024 6:41 AM CDT INDIRECT BILIRUBIN Routine 10/17/2024 6: 44 AM CDT DIRECT BILIRUBIN Routine 10/17/2024 6:44 AM CDT DIGOXIN Routine 10/17/2024 6:44 AM CDT MAGNESIUM Routine 10/17/2024 6:44 AM CDT CBC W/DIFF AUTOMATED Routine 10/17/2024 6:44 AM CDT COMPREHENSIVE METABOLIC PANEL Routine 10/17/2024 6:44 AM CDT INDIRECT BILIRUBIN Routine 10/16/2024 7: 00 AM CDT DIRECT BILIRUBIN Routine 10/16/2024 7:00 AM CDT MAGNESIUM Routine 10/16/2024 7:00 AM CDT CBC W/DIFF AUTOMATED Routine 10/16/2024 7:00 AM CDT COMPREHENSIVE METABOLIC PANEL Routine 10/16/2024 7:00 AM CDT INDIRECT BILIRUBIN Routine 10/15/2024 6: 12 AM CDT DIRECT BILIRUBIN Routine 10/15/2024 6:12 AM CDT HEMOGLOBIN, GLYCOSYLATED Routine 10/15/2024 6:12 AM CDT MAGNESIUM Routine 10/15/2024 6:12 AM CDT CBC W/DIFF AUTOMATED Routine 10/15/2024 6:12 AM CDT COMPREHENSIVE METABOLIC PANEL Routine 10/15/2024 6:12 AM CDT LIPID PANEL Routine 10/15/2024 6:12 AM CDT TROPONIN, QUANT TIMED 10/14/2024 7:35 PM CDT MRSA SCREENING Routine 10/14/2024 6:20 PM CDT XR CHEST PORTABLE AURORA 10/14/2024 3:1 1 PM CDT ECG 12-LEAD STAT 10/14/2024 2:56 PM CDT THYROID STIM HORMONE TSH Routine 10/14/2024 2:11 PM CDT TROPONIN, QUANT TIMED 10/14/2024 2:11 PM CDT MAGNESIUM Routine 10/14/2024 2:11 PM CDT COMPREHENSIVE METABOLIC PANEL Routine 10/14/2024 2:11 PM CDT CBC W/DIFF AUTOMATED Routine 10/14/2024 2:11 PM CDT PROCALCITONIN (PCT) Routine 10/14/2024 2 :06 PM CDT PRO-BRAIN NATRIURETIC PEPTIDE Routine 10/14/2024 2:06 PM CDT ECHO GENERIC (SCAN ORDER) Routine 10/13/2024 from Last 3 Months Results * PROCALCITONIN (PCT) (10/19/2024 6:47 AM CDT) Only the most recent of3 resultswithin the time period is included. Procalcitonin <0.05 0.00 - 0.49 NG/ML 10/19/2024 8:53 AM CDT [facility] 10/19/2024 6:47 AM CDT Irene Barrios MD LABORATORY Final Result Performing Organization Address [facility] Co de Phone Number [facility] [address] [place] [address], * (ABNORMAL) INDIRECT BILIRUBIN (10/19/2024 6:47 AM CDT) Only the most recent of4 resultswithin the time period is included. BILIRUBIN INDIRECT S/P/B 1.0(H) 0.0 - 0.9 MG/DL 10/19/2024 7:49 AM CDT [facility] 10/19/2024 6:47 AM CDT us Irene Barrios MD LABORATORY Final Result Performing Organization Address [facility] Co de Phone Number [facility] [address] [place] [address], * (ABNORMAL) COMPREHENSIVE METABOLIC PANEL (10/19/2024 6:47 AM CDT) Only the most recent of5 resultswithin the time period is included. GLUCOSE 113(H) 70 - 99 MG/DL 10/19/2024 7:49 AM CDT [facility] BUN 21(H) 7 - 18 MG/DL 10/19/2024 7:49 AM CDT [facility] CREATININE S/P/B 0.76 0.7 - 1.3 MG/DL 10/19/2024 7:49 AM CDT [facility] SODIUM S/P/B 132(L) 136 - 145 MMOL/L 10/19/2024 7:49 AM CDT [facility] POTASSIUM S/P/B 4.3 3.5 - 5.1 MMOL/L 10/19/2024 7:49 AM CDT [facility] CHLORIDE S/P/B 100 97 - 115 MMOL/L 10/19/2024 7:49 AM CDT [facility] CO2 26.9 21 - 32 MMOL/L 10/19/2024 7:49 AM T [facility] CALCIUM S/P/B 8.6 8.5 - 10.1 MG/DL 10/19/2024 7:49 AM T [facility] BILIRUBIN TOTAL S/P/B 1.4(H) 0.2 - 1.2 MG/DL 10/19/2024 7:49 AM CDT [facility] Comment: THIS ASSAY IS NOT RECOMMENDED FOR PATIENTS UNDERGOING TREATMENT WITH ELTROMBOPAG DUE TO THE POTENTIAL FOR FALSELY ELEVATED RESULTS. TOTAL PROTEIN S/P/B 6.2(L) 6.4 - 8.2 G/DL 10/19/2024 7:49 AM T [facility] ALBUMIN S/P/B 2.4(L) 3.4 - 5.0 G/DL 10/19/2024 7:49 AM CDT [facility] AST 21 15 - 37 U/L 10/19/2024 7:49 AM T [facility] ALT 21 16 - 60 U/L 10/19/2024 7:49 AM T [facility] ALKALINE PHOSPHATASE S/P/B 71 50 - 136 U/L 10/19/2024 7:49 AM T [facility] ANION GAP 5.1 2 - 10 MMOL/L 10/19/2024 7:49 AM CDT [facility] BUN CREATININE RATIO 27.6(H) 6 - 26 10/19/2024 7:49 AM T [facility] A/G RATIO 0.6(L) 1.0 - 2.0 RATIO 10/19/2024 7:49 AM T [facility] GFR ESTIMATE >90 >90 ML/MIN/1.7 3 M2 10/19/2024 7:49 AM CDT [facility] Comment: NOTE: eGFR is not calculated for patients <18 years of age or gender unknown. This is an estimated GFR calculation using the new CKD EPI creatinine equation without race and so does not require a correction factor for race. This estimated GFR should not be used for calculating drug doses. 10/19/2024 6:47 AM CDT us Irene Barrios MD LABORATORY Final Result Performing Organization Address [facility]/ZIP Co de Phone Number [facility] [address] [place] [address], * (ABNORMAL) C-REACTIVE PROTEIN (10/19/2024 6:47 AM CDT) C-REACTIVE PROTEIN 8.54(H) <0.29 mg/dL 10/19/2024 7:49 AM CDT [facility] 10/19/2024 6:47 AM CDT us Irene Barrios MD LABORATORY Final Result Performing Organization Address City/[facility] Co de Phone Number [facility] [address] [place] [address], * (ABNORMAL) DIRECT BILIRUBIN (10/19/2024 6:47 AM CDT) Only the most recent of4 resultswithin the time period is included. BILIRUBIN DIRECT S/P/B 0.4(H) 0.0 - 0.20 MG/DL 10/19/2024 7:49 AM CDT [facility] 10/19/2024 6:47 AM CDT us Irene Barrios MD LABORATORY Final Result [facility] [address] [place] [address], * (ABNORMAL) CBC W/DIFF AUTOMATED (10/19/2024 6:47 AM CDT) Only the most recent of6 resultswithin the time period is included. WBC 7.97 4.5 - 11.0 x10'3/uL 10/19/2024 7:39 AM CDT [facility] RBC 6.14(H) 4.70 - 6.10 x10'6/uL 10/19/2024 7:39 AM CDT [facility] HGB 17.4 14.0 - 18.0 G/DL 10/19/2024 7:39 AM CDT [facility] HCT 52.0 43.0 - 54.0 % 10/19/2024 7:39 AM CDT [facility] MCV 84.7 80.0 - 94.0 FL 10/19/2024 7:39 AM CDT [facility] MCH 28.3 27.0 - 31.0 PG 10/19/2024 7:39 AM CDT [facility] MCHC 33.5 32.0 - 36.0 G/DL 10/19/2024 7:39 AM CDT [facility] RDW 14.6(H) 11.5 - 14.5 % 10/19/2024 7:39 AM CDT [facility] PLT 271 130 - 400 x10'3/uL 10/19/2024 7:39 AM CDT [facility] MPV 10.3 9.3 - 12.2 FL 10/19/2024 7:39 AM CDT [facility] DIFFERENTIAL TYPE AUTOMATED DIFFERENTIAL 10/19/2024 7:39 AM CDT [facility] NEUTROPHILS % 65.0 % 10/19/2024 7:39 AM CDT [facility] LYMPHOCYTES % 16.4 % 10/19/2024 7:39 AM CDT [facility] MONOCYTES % 14.9 % 10/19/2024 7:39 AM CDT [facility] EOSINOPHILS 2.5 % 10/19/2024 7:39 AM CDT [facility] BASOPHILS 0.6 % 10/19/2024 7:39 AM CDT [facility] IMMATURE GRANS % 0.6 % 10/20/19 7:39 AM CDT [facility] ABS. NEUTROPHILS 5.17 1.80 - 7.70 x10'3/uL 10/19/2024 7:39 AM CDT [facility] ABS. LYMPHOCYTES 1.31 1.00 - 4.80 x10'3/uL 10/19/2024 7:39 AM CDT [facility] ABS. MONOCYTES 1.19(H) 0.30 - 0.82 x10'3/uL 10/19/2024 7:39 AM CDT [facility] ABS. EOSINOPHILS 0.20 0.04 - 0.54 x10'3/uL 10/19/2024 7:39 AM CDT [facility] ABS. BASOPHILS 0.05 0.01 - 0.08 x10'3/uL 10/19/2024 7:39 AM CDT [facility] ABS. IMMATURE GRANULOCYTES 0.05 0.00 - 0.49 x10'3/uL 10/19/2024 7:39 AM CDT [facility] 10/19/2024 6:47 AM CDT us Isael Díaz MD LABORATORY Final Result Performing Organization Address [facility]/ZIP Co de Phone Number [facility] [address] [place] [phone], * PHOSPHORUS, INORGANIC PHOSPHATE (10/19/2024 6:47 AM CDT) PHOSPHORUS 3.0 2.5 - 4.9 MG/DL 10/19/2024 7:49 AM CDT [facility] 10/19/2024 6:47 AM CDT us Irene Barrios MD LABORATORY Final Result Performing Organization Address [facility] Co de Phone Number [facility] [address] [place] [address], [place] [phone] * MAGNESIUM (10/19/2024 6:47 AM CDT) Only the most recent of5 resultswithin the time period is included. MAGNESIUM 2.2 1.8 - 2.4 MG/DL 10/19/2024 7:49 AM CDT [facility] 10/19/2024 6:47 AM CDT us Irene Barrios MD LABORATORY Final Result Performing Organization Address [facility] Co de Phone Number [facility] [address] [place] [address], [place] [phone] * (ABNORMAL) BASIC METABOLIC PANEL (10/18/2024 6:41 AM CDT) GLUCOSE 116(H) 70 - 99 MG/DL 10/18/2024 7:12 AM CDT [facility] BUN 22(H) 7 - 18 MG/DL 10/18/2024 7:12 AM CDT [facility] CREATININE S/P/B 0.90 0.7 - 1.3 MG/DL 10/18/2024 7:12 AM CDT [facility] SODIUM S/P/B 128(L) 136 - 145 MMOL/L 10/18/2024 7:12 AM CDT [facility] POTASSIUM S/P/B 4.3 3.5 - 5.1 MMOL/L 10/18/2024 7:12 AM CDT [facility] CHLORIDE S/P/B 96(L) 97 - 115 MMOL/L 10/18/2024 7:12 AM CDT [facility] CO2 25.8 21 - 32 MMOL/L 10/18/2024 7:12 AM T [facility] CALCIUM S/P/B 8.5 8.5 - 10.1 MG/DL 10/18/2024 7:12 AM T [facility] ANION GAP 6.2 2 - 10 MMOL/L 10/18/2024 7:12 AM T [facility] BUN CREATININE RATIO 24.6 6 - 26 10/18/2024 7:12 AM T [facility] GFR ESTIMATE 86(L) >90 ML/MIN/1.7 3 M2 10/18/2024 7:12 AM T [facility] Comment: NOTE: eGFR is not [...] us Lyric GONZALEZ LABORATORY Final R esult [facility] [address] [place] [address], * DIGOXIN (10/17/2024 6:44 AM CDT) DIGOXIN 0.9 0.8 - 2.0 NG/ML 10/17/2024 2:32 PM CDT [facility] Comment: THERAPEUTIC: 0.8-2.0 TOXIC: >2.4 DOSE UNKNOWN LAST DOSE 10/17/2024 5:11 PM CDT [facility] 10/17/2024 6:44 AM CDT Lyric GONZALEZ LABORATORY Final R esult [facility] [address] [place] [address], * HEMOGLOBIN, GLYCOSYLATED (10/15/2024 6:12 AM CDT) [facility] HGB A1C 5.2 <5.7 % 10/15/2024 10:27 AM CDT [facility] Comment: ADA GUIDELINES 2010 5.7 TO 6.4% INCREASED RISK OF DIABETES > OR = 6.5% CONSISTENT WITH DIABETES ESTIMATED AVG GLUCOSE 103 mg/dL 10/15/2024 10:27 AM CDT [facility] 10/15/2024 6:12 AM CDT us Johan Oh MD LABORATORY Final Result [facility] [address] [place] [address], * (ABNORMAL) LIPID PANEL (10/15/2024 6:12 AM CDT) [facility] CHOLESTEROL 100 <200 MG/DL 10/15/2024 7:31 AM CDT [facility] TRIGLYCERIDES 76 <150 MG/DL 10/15/2024 7:31 AM CDT [facility] HDL 31(L) >40.0 MG/DL 10/15/2024 7:31 AM CDT [facility] LDL (CALCULATED) 54 <100 MG/DL 10/16/19 7:31 AM CDT [facility] NON HDL CHOLESTEROL 69 <130 MG/DL 10/15 7:31 AM CDT [facility] CHOL/HDL RATIO 3.2 0.0 - 4.5 10/15/2024 7:31 AM CDT [facility] VLDL CALCULATION 15 5 - 55 MG/DL 10/15/2024 7:31 AM T [facility] LIPID INTERPRETATION 10/15/2024 7:31 AM CDT [facility] Comment: [facility] CONCENSUS REPORT RECOMMENDATIONS: ADULT CHILD LOW RISK: CHOLESTEROL <200 <170 TRIGLYCERIDE <150 --- HDL >=60 --- LDL <100 <110 BORDERLINE: CHOLESTEROL 200-239 170-199 TRIGLYCERIDE 150-199 --- HDL 40-59 --- LDL 100-159 110-129 HIGH RISK: CHOLESTEROL >=240 >=200 TRIGLYCERIDE >=200 --- HDL <40 --- LDL >=160 >=130 10/15/2024 6:12 AM CDT [facility] LABORATORY Final Result [facility] [address] [place] [address], * (ABNORMAL) TROPONIN, QUANT (10/14/2024 7:35 PM CDT) Only the most recent of2 resultswithin the time period is included. TROPONIN I HIGH SENSITIVITY 283(HH) <79 ng/L 10/14/2024 8:14 PM CDT [facility] Comment: NOT CALLED PER CRITICAL VALUE POLICY HIGH DOSES OF BIOTIN, TROPONIN-SPECIFIC AUTOANTIBODIES, AND ANTIBODY THERAPY CONTAINING HAMA MAY INTERFERE WITH THIS TEST RESULT. CORRELATION TO CLINICAL HISTORY AND PRESENTATION RECOMMENDED. 10/14/2024 7:35 PM CDT [facility] LABORATORY Final Result Performing Organization Address [facility] Co de Phone Number [facility] [address] [place] [address], [place] [phone] * MRSA SCREENING (10/14/2024 6:20 PM CDT) SPEC DESCRIPTION NASAL 10/15/2024 12:56 AM CDT [facility] SPECIAL REQUESTS NO SPECIAL REQUEST 10/15/2024 12:56 AM CDT [facility] CULTURE RESULT NO METHICILLIN RESISTANT STAPHYLOCOCCUS AUREUS ISOLATED 10/16/2024 6:49 AM CDT [facility] SPECIMEN FROM INTERNAL NOSE / Unknown 10/14/2024 6:20 PM CDT 10/15/2024 12:58 AM CDT Lloyd Child TONGUE STITCHER MICROBIOLOGY - GENERAL ORDERAB LES Final Result [facility] [address] [place] [address], [place] [phone] * XR CHEST PORTABLE (10/14/2024 3:11 PM CDT) Anatomical Region Laterality Modality Chest Radiographic Evelina ging 10/14/2024 3:15 PM CDT Impressions 10/14/2024 3:15 PM CDT IMPRESSION: CHF Ordered By: LLOYD CHILD Interpreted By: Girish Ovalle MD, 10/14/2024 3:15 PM Narrative 10/14/2024 3:15 PM CDT [place] [id number] SINGLE VIEW OF THE CHEST Clinical history: [...] Procedure Note Girish Ovalle MD - 10/14/2024 [place] [id number] SINGLE VIEW OF THE CHEST Clinical history: [...] By: Girish Ovalle MD, 10/14/2024 3:15 PM us Lloyd Child TONGUE STITCHER GENERAL IMAGING Final Result * ECG 12 lead (10/14/2024 2:56 PM CDT) 10/14/2024 2:56 PM CDT Narrative 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 : 1945 Requested By: LLOYD CHILD Order Number: [id number] Reading MD: Marcus Ambrocio Measurements Intervals [place] Rate: 111 P: 0 IN: 0 QRS: -14 QRSD: 90 T: 131 QT: 343 QTc: 467 Interpretive Statements ATRIAL FIBRILLATION WITH RAPID VENTRICULAR RESPONSE NONSPECIFIC T-WAVE ABNORMALITY Compared to ECG 05/26/2021 14:10:18 T-wave abnormality now present Procedure Note Marcus Ambrocio MD - 10/15/[address] Test Date: 2024-10-14 Pat Name: SKY SOO Department: 40 Room: [id number] Gender: Male 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: CIRILOGURINDER : 1945 Requested By: LLOYD CHILD Order Number: [id number] Reading MD: Marcus Ambrocio Measurements Intervals [place] Rate: 111 P: 0 IN: 0 QRS: -14 QRSD: 90 T: 131 QT: 343 QTc: 467 Interpretive Statements ATRIAL FIBRILLATION WITH RAPID VENTRICULAR RESPONSE NONSPECIFIC T-WAVE ABNORMALITY Compared to ECG 05/26/2021 14:10:18 T-wave abnormality now present us Lloyd Child TONGUE STITCHER ECG ORDERABLES Final Result [facility] (QI) RAD * THYROID STIM HORMONE, TSH (10/14/2024 2:11 PM CDT) TSH 1.280 0.358 - 3.74 uIU/ML 10/14/2024 3:36 PM CDT [facility] Comment: HIGH DOSES OF BIOTIN MAY INTERFERE WITH THIS TEST RESULT. CORRELATION TO CLINICAL HISTORY AND PRESENTATION RECOMMENDED. 10/14/2024 2:11 PM CDT Ezradevon Mahoney Pedro TONGUE STITCHER LABORATORY Final Result Performing Organization Address [facility] Co de Phone Number [facility] [address] [place] [address], [place] [phone] * (ABNORMAL) PRO-BRAIN NATRIURETIC PEPTIDE (10/14/2024 2:06 PM CDT) PRO-B TYPE NATRIURETIC PEPTIDE 6,361(H) <450 PG/ML 10/14/2024 3:16 PM CDT [facility] Comment: CUT POINTS ESTABLISHED BY [...] FOR ACUTE CHF. 10/14/2024 2:06 PM CDT Lloyd Child TONGUE STITCHER LABORATORY Final Result Performing Organization Address [facility] Co de Phone Number [facility] [address] [place] [address], [place] [phone] * ECHO (10/13/2024) Anatomical Region Laterality Modality Other Doc Pccl Scanned SCANNING Final Result from Last 3 Months Insurance [employer] [facility] OFFICE OF COMMUNITY CARE [employer] [facility] OFFICE OF COMMUNITY CARE Advance Directives * Full Code (Latest Code Status on File) Date Activated Date Inactivated Comments 10/14/2024 2:45 PM 10/19/2024 11:13 PM 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
[2024-10-20 02:19] LABS: Basophils Absolute Auto 0.1 K/mm3 (0.0-0.1); Basophils Percent Auto 0.6 % (0.2-1.2); Eosinophils Absolute Auto 0.2 K/mm3 (0-0.3); Eosinophils Percent Auto 2.4 % (0-4.4); Hematocrit 51.2 % (42.0-52.0); Hemoglobin 16.7 g/dL (14.0-18.0); Immature Granulocyte Absolute 0.06 K/mm3 (0.00-0.031); Immature Granulocyte Percent A 0.6 % (0-0.5); Lymphocytes Absolute Auto 1.39 K/mm3 (0.9-3.2); Lymphocytes Percent Auto 13.9 % (18.3-44.2); Mean Corpuscular HGB Conc 32.6 g/dl (32-36); Mean Corpuscular Hemoglobin 28.6 pg (26-34); Mean Corpuscular Volume 87.8 fl (80-100); Mean Platelet Volume 10.1 fl (7.4-10.4); Monocytes Absolute Auto 1.3 K/mm3 (0.1-0.6); Monocytes Percent Auto 12.5 % (2.6-8.5); Platelet Count Result 299 k/mm3 (150-375); Red Blood Count 5.83 M/mm3 (4.6-6.20); Red Cell Distribution Width 14.6 % (11.5-14.5)
[2024-10-20 02:29] LABS: Alanine Aminotransferase 29 U/L (6-50); Albumin Level 3.5 g/dL (3.5-5.1); Alkaline Phosphatase 80 U/L (38-126); Anion Gap 8 mmol/L (4-12); Aspartate Amino Transferase 36 U/L (17-59); Bilirubin,Total 1.2 mg/dL (0.2-1.3); Blood Urea Nitrogen 29 mg/dL (9-20); Calcium 8.6 mg/dL (8.4-10.2); Carbon Dioxide 30 mmol/L (22-30); Chloride 92 mmol/L (98-107); Estimated CRCL calculation 59 ml/min; Estimated Glomerular Filt Rate > 60; Glucose 113 mg/dL (65-110); Lipase 107 U/L (23-300); Magnesium 2.2 mg/dL (1.6-2.3); Potassium 4.3 mmol/L (3.4-5.0); Sodium 130 mmol/L (137-145)
[2024-10-20 02:37] VITALS: BP 131/88; PULSE 92; RESP 15; O2SAT 98
[2024-10-20 02:49] LABS: Add Urine Microscopic? YES; Appearance Urine Cloudy (Clear); Bacteria Urine None Seen /hpf; Bilirubin Urine Negative (Negative); Blood Urine 3+ (Negative); Color Urine Dark Yellow (Yellow); Glucose Urine UA Negative (Negative); Ketones Urine Negative (Negative); Leukocyte Esterase Ur 1+ LEU/UL (Negative); Mucus Urine Present /lpf; Need Manual Microscopic Reviewed; Nitrate Urine Negative (Negative); Non Pathogenic Casts 0-2; Protein Urine 1+ mg/dL (Negative); RBC Urine >100 /hpf (0-2); Specific Grav Ur 1.019 (1.001-1.035); Squamous Epithelial Cell Urine None Seen /hpf (Few)
[2024-10-20 02:55] LABS: Influenza A QL RT-PCR Negative (Negative); Influenza B QL RT-PCR Negative (Negative); RSV RNA, RT-PCR Negative (Negative); SARS-CoV-2 RNA PCR Negative (Negative)
[2024-10-20 03:57] VITALS: BP 127/85; PULSE 98; RESP 15; O2SAT 96
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
[2024-10-20 06:36] LABS: Digoxin < 0.5 ng/mL (0.8-2.0)
--- NOTE | 2024-10-20 06:56 | PC.NURSE ---
JUAN R Salazar called back and gave consent for us to request records from [facility]. 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 states he will call back when he can.
[2024-10-20 06:58] VITALS: BP 127/87; PULSE 100; RESP 15; O2SAT 94
[2024-10-20 07:37] VITALS: BP 115/84; PULSE 100; RESP 19; O2SAT 98
[2024-10-20 07:48] VITALS: BMI 26.9
--- NOTE | 2024-10-20 07:48 | ADMGEN ---
This patient, Sky Hurtado, was admitted to 3 [facility] Surg Room 306-01. Patient/family oriented to hospital policies and general routines including ID bracelet, bed and alarms, visiting hours, pain management, procedures, bathroom and other care routines, personal items, smoking policy, room service/diet, and visiting hours. Information on how to activate the Rapid Response Team has been discussed. Patient/Family are encouraged to report perceived risks to care and to ask questions if they do not understand what they are told or what they should do.
[2024-10-20] MEDS: ACETAMINOPHEN 325 MG TABLET 650 MG PO (08:16)
--- NOTE | 2024-10-20 09:51 | PCCARD ---
EKG ORDERED IN THE ER WAS NOT DONE. NOTIFIED PATIENT'S NURSE ON THIRD FLOOR AND SHE WILL RE-ORDER EKG IF NEEDED.
[2024-10-20] MEDS: HALOPERIDOL LACTATE 5 MG/ML VIAL 1 MG IV PUSH ×2 (11:02→17:23)
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
--- NOTE | 2024-10-20 12:07 | WPDNEURCNPN ---
Assessment and Plan Assessment and plan (1) Dementia of the Alzheimer's type: Code(s): G30.9 - Alzheimer's disease, unspecified; F02.80 - Dementia in other diseases classified elsewhere, unspecified severity, without behavioral disturbance, psychotic disturbance, mood disturbance, and anxiety Status: Acute Plan I will suggest check his carotid Doppler study lipid profile in view of the significant atrophy noted. We should also check his serum B12 and folic acid level, thyroid function test and vitamin-D level. His a been given a single dose of had a if he has any behavior problems he can choose psychotropic medications such as Seroquel or Geodon or Abilify start with the low dose. If psychosis react to help is available that certainly would be helpful in terms of the memory we could start him on Aricept 5 mg a day and also add Namenda 5 mg a day increasing to twice a day after 1 week. Dose can be escalated further up to 10 mg twice a day over the course of next 3-4 weeks time. He will require some senior care care in view of his mental status. At our portions respect to the hospitalist Mrs. Scott. Consult date: 10/20/24 HPI: Sky Hurtado is a 79 year old male was brought to the emergency room with history of memory problems and frequent falls. He has had a distal radius fracture on the left side. He also had an episode of atrial fibrillation. CT scan of brain was performed which shows shows generalized atrophy. The radiologist raised possibility of questionable hyper dense left MCA sign. I agree that this is a questionable finding at this time. The patient unable to offer much in the way of history. He is also hard of but he does seem to be attentive and tries to answer some questions. He has difficulty telling me his age cranial his date of . He does not know the current month or year. He states that he lives by himself since his to tell me who well she is involved in his care in terms of family members. He denies any headache or weakness in upper lower limbs he goes to [facility] for most of his care. Review of Systems Review of Systems: Patient is unable to give me a detailed history. [facility] Past Medical History Medical History (Updated 10/20/24 @ 12:12 by Anamika Hernandez MD) Dementia of the Alzheimer's type Social History Social History Smoking status: Former smoker Tobacco type: cigarettes Second hand tobacco smoke exposure: No Additional smoking assessment comments: quite many years ago Alcohol intake: unknown Substance use: unknown Spiritual care concerns: No Meds Home Medications and Allergies Home Medications ?Medication ?Instructions ?Recorded ?Confirmed ?Type digoxin 125 mcg (0.125 mg) tablet 10/20/24 History donepezil 10 mg tablet mg 10/20/24 History furosemide 40 mg tablet mg 10/20/24 History metoprolol tartrate 100 mg tablet mg 10/20/24 History quetiapine 25 mg tablet mg 10/20/24 History spironolactone 25 mg tablet mg 10/20/24 History tamsulosin 0.4 mg capsule mg PO 10/20/24 History Allergies Allergy/AdvReac Type Severity Reaction Status Date / Time morphine Allergy Unknown Unverified 10/20/24 07:38 Penicillins Allergy Unknown Unverified 10/20/24 07:38 pseudoephedrine (From Allergy Unknown Unverified 10/20/24 07:38 Sudafed) ANITIHISTAMINE, NASAL Allergy Unknown Uncoded 10/20/24 07:38 DECONGESTANT Vital Signs Vital Signs - 24 hr 10/19/24 23:24 10/20/24 02:37 10/20/24 03:57 Temperature 98.2 F Pulse Rate 79 92 98 Respiratory Rate 16 15 15 Blood Pressure 125/80 131/88 127/85 Pulse Oximetry 99 98 96 Oxygen Delivery Room Air 10/20/24 06:58 10/20/24 07:37 Temperature Pulse Rate 100 100 Respiratory Rate 15 19 Blood Pressure 127/87 115/84 Pulse Oximetry 94 98 Oxygen Delivery Exam Const: General: comfortable and no acute distress HENMT: Mouth: Yes moist mucous membranes Eyes: General: appearance normal, both eyes and all related structures Pupils: Equal, round and reactive pupils present EOM: EOMs intact bilaterally Neck: Neck: supple Other: No carotid bruit Resp: Effort & Inspection: normal respiratory effort Cardio: Rate: regular rate Rhythm: regular rhythm Other: No cardiac murmur Skin: General skin exam: normal color Neuro: Speech: normal speech Motor exam (neuro): 5/5 motor strength present throughout, Normal motor muscle tone present throughout and Abnormal motor strength present Other: Patient will hard of hearing. However overall he appears to have significant difficult. Rather flat affect. He does attend to questions however he had difficulty following 2 step commands. He does follow one-step commands. No involuntary movements are seen. Specifically no tremor or cogwheeling noted. Results Labs 10/20/24 02:09 10/20/24 02:09 Labs: Short CBC 10/20/24 Range/Units 02:09 WBC 10.0 (4.5-10.0) K/mm3 Hgb 16.7 (14.0-18.0) g/dL Hct 51.2 (42.0-52.0) % Plt Count 299 (150-375) k/mm3 BMP 10/20/24 02:09 Sodium 130 L Potassium 4.3 Chloride 92 L Carbon Dioxide 30 BUN 29 H Creatinine 0.95 Glucose 113 H Calcium 8.6 Liver Function 10/20/24 Range/Units 02:09 Total Bilirubin 1.2 (0.2-1.3) mg/dL AST 36 (17-59) U/L ALT 29 (6-50) U/L Alkaline Phosphatase 80 (38-126) U/L Albumin 3.5 (3.5-5.1) g/dL Urine 10/20/24 Range/Units 02:09 Urine Color Dark yellow (Yellow) Urine Appearance Cloudy H (Clear) Urine pH 5.0 (5.0-9.0) Ur Specific [place] 1.019 (1.001-1.035) Urine Protein 1+ H (Negative) mg/dL Urine Glucose (UA) Negative (Negative) mg/dL Imaging My impression: I reviewed the CT scan of brain which shows some questionable finding of the hyperdense left MCA sign. I did feel this is most likely not significant. He does have a fair amount of atrophy but no acute findings were noted. No evidence for hydrocephalus.
[2024-10-20 13:40] LABS: Cholesterol 128 mg/dL (0-200); HDL Direct 23 mg/dL; Triglycerides 83 mg/dL (<150)
[2024-10-20 13:50] LABS: LDL Cholesterol Direct 94 mg/dL
--- NOTE | 2024-10-20 13:52 | PCOTNOTE ---
Attempted to see pt. for occupational therapy evaluation. Pt. currently unable to awake and be alert enough to participate at this time. Nursing aware.
[2024-10-20 14:00] VITALS: BP 143/86; PULSE 60; RESP 20; TEMP 36.4; O2SAT 99
[2024-10-20 14:47] LABS: Vitamin D 25 Hydroxy 40.5 ng/mL
--- NOTE | 2024-10-20 15:31 | PCPTNOTE ---
Attempted PT evaluation, Pt. currently unarousable to safely participate at this time. Nursing aware. Will follow.
[2024-10-20] MEDS: DONEPEZIL HCL 5 MG TABLET PO (20:30)
[2024-10-20] MEDS: hydrOXYzine HCl 50 MG/ML VIAL 25 MG IM (20:31)
[2024-10-20 22:00] VITALS: BP 103/86; PULSE 61; RESP 24; TEMP 36.6; O2SAT 96
[2024-10-21 05:55] VITALS: BP 119/84; PULSE 56; RESP 20; TEMP 36.6; O2SAT 95
[2024-10-21 06:18] LABS: Hematocrit 54.5 % (42.0-52.0); Hemoglobin 17.5 g/dL (14.0-18.0); Mean Corpuscular HGB Conc 32.1 g/dl (32-36); Mean Corpuscular Hemoglobin 28.6 pg (26-34); Mean Corpuscular Volume 89.2 fl (80-100); Mean Platelet Volume 10.3 fl (7.4-10.4); Platelet Count Result 299 k/mm3 (150-375); Red Blood Count 6.11 M/mm3 (4.6-6.20); White Blood Count 8.1 K/mm3 (4.5-10.0)
[2024-10-21 06:28] LABS: Anion Gap 7 mmol/L (4-12); Blood Urea Nitrogen 21 mg/dL (9-20); Calcium 8.6 mg/dL (8.4-10.2); Carbon Dioxide 29 mmol/L (22-30); Chloride 98 mmol/L (98-107); Estimated CRCL calculation 76 ml/min; Estimated Glomerular Filt Rate > 60; Glucose 104 mg/dL (65-110); Potassium 4.3 mmol/L (3.4-5.0); Sodium 134 mmol/L (137-145)
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
[2024-10-21] MEDS: MEMANTINE 5 MG TABLET PO (08:43)
[2024-10-21] MEDS: ENOXAPARIN 40 MG/0.4 ML SYRINGE SUB-Q (08:46)
[2024-10-21 10:22] VITALS: O2SAT 96
[2024-10-21 14:00] VITALS: BP 117/54; PULSE 68; RESP 20; TEMP 36.2; O2SAT 91
[2024-10-21] MEDS: hydrOXYzine HCl 50 MG/ML VIAL 25 MG IM (17:57)
[2024-10-21 21:05] VITALS: BP 132/82; PULSE 78; RESP 20; TEMP 36.1; O2SAT 96
[2024-10-21] MEDS: DONEPEZIL HCL 5 MG TABLET PO (21:48)
[2024-10-22 05:33] VITALS: BP 130/79; PULSE 52; RESP 20; TEMP 36.2; O2SAT 100
[2024-10-22 05:47] LABS: Hematocrit 52.2 % (42.0-52.0); Mean Corpuscular HGB Conc 32.6 g/dl (32-36); Mean Corpuscular Hemoglobin 28.7 pg (26-34); Mean Platelet Volume 9.8 fl (7.4-10.4); Platelet Count Result 345 k/mm3 (150-375); Red Blood Count 5.93 M/mm3 (4.6-6.20); Red Cell Distribution Width 14.6 % (11.5-14.5)
[2024-10-22 06:00] LABS: Anion Gap 6 mmol/L (4-12); Blood Urea Nitrogen 18 mg/dL (9-20); Calcium 8.5 mg/dL (8.4-10.2); Carbon Dioxide 28 mmol/L (22-30); Chloride 99 mmol/L (98-107); Estimated CRCL calculation 73 ml/min; Estimated Glomerular Filt Rate > 60; Glucose 112 mg/dL (65-110); Potassium 4.1 mmol/L (3.4-5.0); Sodium 133 mmol/L (137-145)
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
[2024-10-22] MEDS: MEMANTINE 5 MG TABLET PO (09:22)
[2024-10-22] MEDS: TAMSULOSIN HCL 0.4 MG CAPSULE PO (09:22)
[2024-10-22] MEDS: ENOXAPARIN 40 MG/0.4 ML SYRINGE SUB-Q (09:22)
[2024-10-22 14:00] VITALS: BP 132/87; PULSE 87; RESP 20; TEMP 36.9; O2SAT 99
--- NOTE | 2024-10-22 14:13 | ECG_ITS ---
Test Date: 2024-10-22 14:51:14 Measurements Intervals [place] Rate: 104 P: 0 CA: 0 QRS: -17 QRSD: 100 T: 118 QT: 335 QTc: 441 Interpretive Statements ATRIAL FIBRILLATION WITH RAPID VENTRICULAR RESPONSE INCOMPLETE RIGHT BUNDLE BRANCH BLOCK DELAYED PRECORDIAL R/S TRANSITION CONSIDER INFERIOR INFARCT, AGE INDETERMINATE MODERATE T-WAVE ABNORMALITY, CONSIDER HIGH LATERAL ISCHEMIA BASELINE ARTIFACT- II, III, AVF, V1, V4-V6 ABNORMAL ECG No previous ECG available for comparison Electronically Signed On 10-22-2024 15:03:08 CDT by Mars Acuña D.O.
[2024-10-22] MEDS: DONEPEZIL HCL 5 MG TABLET PO (20:32)
[2024-10-22] MEDS: hydrOXYzine HCl 50 MG/ML VIAL 25 MG IM (20:32)
[2024-10-22 21:40] VITALS: BP 126/68; PULSE 64; RESP 20; TEMP 36.8; O2SAT 99
[2024-10-23] VITALS (7 sets, daily range): BP systolic 102–125; BP diastolic 73–77; PULSE 65–155; RESP 16–24; TEMP 36.5–37.1; O2SAT 95–98
[2024-10-23 06:05] LABS: Hematocrit 50.6 % (42.0-52.0); Hemoglobin 16.4 g/dL (14.0-18.0); Mean Corpuscular HGB Conc 32.4 g/dl (32-36); Mean Corpuscular Hemoglobin 28.5 pg (26-34); Mean Corpuscular Volume 87.8 fl (80-100); Mean Platelet Volume 9.8 fl (7.4-10.4); Platelet Count Result 351 k/mm3 (150-375); Red Blood Count 5.76 M/mm3 (4.6-6.20); Red Cell Distribution Width 14.6 % (11.5-14.5); White Blood Count 9.3 K/mm3 (4.5-10.0)
[2024-10-23 06:27] LABS: Alanine Aminotransferase 26 U/L (6-50); Albumin Level 3.3 g/dL (3.5-5.1); Alkaline Phosphatase 72 U/L (38-126); Anion Gap 10 mmol/L (4-12); Aspartate Amino Transferase 37 U/L (17-59); Bilirubin,Total 0.8 mg/dL (0.2-1.3); Blood Urea Nitrogen 19 mg/dL (9-20); Calcium 8.5 mg/dL (8.4-10.2); Carbon Dioxide 27 mmol/L (22-30); Chloride 97 mmol/L (98-107); Estimated CRCL calculation 77 ml/min; Estimated Glomerular Filt Rate > 60; Glucose 111 mg/dL (65-110); Potassium 4.2 mmol/L (3.4-5.0); Sodium 134 mmol/L (137-145)
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
[2024-10-23] MEDS: TAMSULOSIN HCL 0.4 MG CAPSULE PO (09:45)
[2024-10-23] MEDS: hydrOXYzine HCl 50 MG/ML VIAL 25 MG IM ×2 (09:45→16:28)
[2024-10-23] MEDS: MEMANTINE 5 MG TABLET PO (09:45)
[2024-10-23] MEDS: ENOXAPARIN 40 MG/0.4 ML SYRINGE SUB-Q (09:46)
[2024-10-23] MEDS: METOPROLOL TARTRATE 50 MG TAB PO ×2 (12:40→22:53)
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
[2024-10-23] MEDS: DONEPEZIL HCL 5 MG TABLET PO (22:53)
[2024-10-24] VITALS (11 sets, daily range): BP systolic 106–126; BP diastolic 63–85; PULSE 71–117; RESP 18–20; TEMP 36.6–36.9; O2SAT 95–98
--- NOTE | 2024-10-24 | ECHO_ITS ---
Patient Info Name: Sky Hurtado Age: 79 years : 1945 Gender: Male Ht: 72 in Wt: 198 lbs BSA: 2.15 m2 HR: 90 bpm BP: 106 / 63 mmHg Technical Quality: Fair Exam Date: 10/24/2024 2:54 PM Exam Location: Echo Lab Patient Status: Inpatient Admit Date: 10/21/2024 Staff Ordering Physician: Mera Padilla PA-C Print Line Feeder: Mariana Khanna RDCS Attending Provider: Mera Padilla PA-C Referring Physician: Randy CALL; Exam Type: CA echo doppler color flow Study Info Indications - Afib Complete two-dimensional, color flow and Doppler transthoracic echocardiogram is performed. Summary 1. Complete two-dimensional, color flow and Doppler transthoracic echocardiogram is performed. 2. Left ventricular systolic function is normal, estimated at 25-30%. 3. The left ventricular diastolic function is abnormal. 4. There is trace aortic valve regurgitation. 5. There is mild aortic valve calcification. 6. There is mild tricuspid valve regurgitation. 7. No pulmonary hypertension, estimated pulmonary arterial systolic pressure is 28 mmHg. Left Ventricle Left ventricular chamber dimension is normal. Left ventricular systolic function is normal, estimated at 25-30%. There is no increased left ventricular wall thickness. The left ventricular diastolic function is abnormal. Right Ventricle Right ventricular chamber dimension is normal. Right ventricular systolic function is normal. Left Atria Left atrial chamber dimension is normal. Right Atria Right atrial chamber dimension is normal. Aortic Valve The aortic valve is trileaflet. There is no aortic valve sclerosis. There is no aortic valve stenosis. There is trace aortic valve regurgitation. There is mild aortic valve calcification. Pulmonic Valve The pulmonic valve is normal. There is no pulmonic valve stenosis. There is no pulmonic regurgitation. Mitral Valve The mitral valve has normal leaflets. There is no mitral valve stenosis. There is no mitral valve regurgitation. Tricuspid Valve The tricuspid valve leaflets are normal. There is no significant tricuspid valve stenosis. There is mild tricuspid valve regurgitation. No pulmonary hypertension, estimated pulmonary arterial systolic pressure is 28 mmHg. Pericardium/Pleural The pericardium appears normal. There is trivial pericardial effusion. Inferior Vena Cava Normal inferior vena cava with <50% collapse upon inspiration consistent with elevated right atrial pressure, 10 mmHg. Aorta The aortic root size at the sinus of Valsalva is normal. The prox ascending aorta size is normal. Left Ventricular Outflow Tract Name Value Normal LVOT 2D LVOT Diameter 2.2 cm LVOT Doppler LVOT Peak Gradient 2 mmHg LVOT Mean Gradient 1 mmHg LVOT VTI 11 cm LVOT VTI/AV VTI Ratio 0.5 LVOT Stroke Volume 43 ml LVOT CO 3.2 l/min LVOT CI 1.5 l/min/m2 Mitral Valve Name Value Normal MV Doppler MV Decel Grady 397 cm/s2 MV PHT 56 ms MV Area (PHT) 3.9 cm2 4.0-5.0 MV Diastolic Function MV E Peak Velocity 77 cm/s MV A Peak Velocity 52 cm/s MV E/A 1.5 MV Decel Time 193 ms MV Annular TDI MV E/e' (Septal) 18.3 <=8.0 MV E/e' (Lateral) 9.7 <=8.0 MV E/e' (Average) 14.0 Tricuspid Valve Name Value Normal TV Regurgitation Doppler TR Peak Velocity 215 cm/s TR Peak Gradient 18 mmHg Estimated PAP/RSVP RA Pressure 10 mmHg <=5 PA Systolic Pressure 28 mmHg <36 RV Systolic Pressure 28 mmHg <36 Aortic Valve Name Value Normal AV Doppler AV Peak Velocity 117 cm/s AV Peak Gradient 5 mmHg AV Mean Gradient 3 mmHg AV VTI 20 cm AV Area (Cont Eq VTI) 2.1 cm2 >=3.0 AV Area (Cont Eq Jackson) 2.4 cm2 AV Regurgitation 2D LVOT Area 3.9 cm2 Ventricles Name Value Normal LV Dimensions 2D/MM IVS Diastolic Thickness (2D) 0.8 cm 0.6-1.0 LVID Diastole (2D) 6.7 cm 4.2-5.8 LVIW Diastolic Thickness (2D) 0.8 cm 0.6-1.0 LVID Systole (2D) 4.8 cm 2.5-4.0 LVOT Diameter 2.2 cm LV Mass (2D Cubed) 220.06 g 88.00-224.00 LV Mass Index (2D Cubed) 102 g/m2 49-115 Relative Wall Thickness (2D) 0.22 LV Fractional Shortening/Ejection Fraction 2D/MM LV Fractional Shortening (2D) 28 % 25-43 LV EF (2D Teicholz) 53 % 52-72 LV Diastolic Volume (4C MOD) 117 ml LV EF (4C MOD) 55 % LV Diastolic Volume (2C MOD) 60 ml LV EF (2C MOD) 57 % LV Diastolic Volume (BP MOD) 93 ml 62-150 LV Diastolic Volume Index (BP MOD) 43 ml/m2 34-74 LV Systolic Volume (BP MOD) 44 ml 21-61 LV Systolic Volume Index (BP MOD) 20 ml/m2 11-31 LV EF (BP MOD) 53 % 52-72 LV Diastolic Length (4C) 8.8 cm LV Systolic Length (4C) 7.7 cm LV Stroke Volume (4C MOD) 65 ml Atria Name Value Normal LA Dimensions LA Volume (4C A-L) 76 ml LA Volume (BP A-L) 77 ml RA Dimensions RA Area (4C) 21.1 cm2 <=18.0 Report Signatures
[2024-10-24 06:05] LABS: Hematocrit 49.3 % (42.0-52.0); Hemoglobin 15.8 g/dL (14.0-18.0); Mean Corpuscular Hemoglobin 28.5 pg (26-34); Mean Corpuscular Volume 88.8 fl (80-100); Mean Platelet Volume 9.5 fl (7.4-10.4); Platelet Count Result 356 k/mm3 (150-375); Red Blood Count 5.55 M/mm3 (4.6-6.20); Red Cell Distribution Width 14.7 % (11.5-14.5); White Blood Count 11.2 K/mm3 (4.5-10.0)
[2024-10-24 06:17] LABS: Alanine Aminotransferase 24 U/L (6-50); Albumin Level 3.3 g/dL (3.5-5.1); Alkaline Phosphatase 65 U/L (38-126); Anion Gap 9 mmol/L (4-12); Aspartate Amino Transferase 33 U/L (17-59); Bilirubin,Total 1.2 mg/dL (0.2-1.3); Blood Urea Nitrogen 19 mg/dL (9-20); Calcium 8.4 mg/dL (8.4-10.2); Carbon Dioxide 26 mmol/L (22-30); Chloride 97 mmol/L (98-107); Estimated CRCL calculation 85 ml/min; Estimated Glomerular Filt Rate > 60; Glucose 113 mg/dL (65-110); Potassium 4.7 mmol/L (3.4-5.0); Sodium 132 mmol/L (137-145)
[2024-10-24] MEDS: TAMSULOSIN HCL 0.4 MG CAPSULE PO (08:24)
[2024-10-24] MEDS: ENOXAPARIN 40 MG/0.4 ML SYRINGE SUB-Q (08:24)
[2024-10-24] MEDS: MEMANTINE 5 MG TABLET PO (08:24)
[2024-10-24] MEDS: METOPROLOL TARTRATE 50 MG TAB PO ×3 (08:24→21:13)
[2024-10-24] MEDS: CEFDINIR 300 MG CAPSULE PO ×2 (08:24→21:13)
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
[2024-10-24 12:20] LABS: Amphetamine Screen Urine Negative (Negative); Barbiturate Screen Urine Negative (Negative); Benzodiazepines Screen Urine Negative (Negative); Cannabinoid Screen Urine Negative (Negative); Cocaine Screen Urine Negative (Negative); Methadone Screen Urine Negative (Negative); Opiate Screen Urine Negative (Negative); Phencyclidine Screen Urine Negative (Negative)
[2024-10-24] MEDS: DONEPEZIL HCL 5 MG TABLET PO (21:13)
[2024-10-24] MEDS: hydrOXYzine HCl 50 MG/ML VIAL 25 MG IM (21:29)
[2024-10-25] VITALS (12 sets, daily range): BP systolic 110–121; BP diastolic 61–74; PULSE 66–100; RESP 14–20; TEMP 36.2–37.2; O2SAT 95–100
[2024-10-25] MEDS: METOPROLOL TARTRATE 50 MG TAB PO ×2 (04:00→09:56)
[2024-10-25 06:48] LABS: Hematocrit 47.9 % (42.0-52.0); Hemoglobin 15.8 g/dL (14.0-18.0); Mean Corpuscular Hemoglobin 28.6 pg (26-34); Mean Corpuscular Volume 86.6 fl (80-100); Mean Platelet Volume 10.1 fl (7.4-10.4); Platelet Count Result 360 k/mm3 (150-375); Red Blood Count 5.53 M/mm3 (4.6-6.20); Red Cell Distribution Width 14.7 % (11.5-14.5); White Blood Count 11.5 K/mm3 (4.5-10.0)
[2024-10-25 07:15] LABS: Alanine Aminotransferase 23 U/L (6-50); Albumin Level 3.4 g/dL (3.5-5.1); Alkaline Phosphatase 59 U/L (38-126); Anion Gap 10 mmol/L (4-12); Aspartate Amino Transferase 40 U/L (17-59); Bilirubin,Total 1.7 mg/dL (0.2-1.3); Blood Urea Nitrogen 23 mg/dL (9-20); Calcium 8.7 mg/dL (8.4-10.2); Carbon Dioxide 26 mmol/L (22-30); Chloride 94 mmol/L (98-107); Estimated CRCL calculation 81 ml/min; Estimated Glomerular Filt Rate > 60; Glucose 91 mg/dL (65-110); Sodium 130 mmol/L (137-145)
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
[2024-10-25] MEDS: CEFDINIR 300 MG CAPSULE PO ×2 (09:56→21:45)
[2024-10-25] MEDS: MEMANTINE 5 MG TABLET PO (09:56)
[2024-10-25] MEDS: TAMSULOSIN HCL 0.4 MG CAPSULE PO (09:56)
[2024-10-25] MEDS: ENOXAPARIN 40 MG/0.4 ML SYRINGE SUB-Q (13:34)
[2024-10-25] MEDS: METOPROLOL SUCCINATE EXT REL 100 MG TABCR PO (16:32)
[2024-10-25] MEDS: hydrOXYzine HCl 50 MG/ML VIAL 25 MG IM (21:45)
[2024-10-25] MEDS: SACUBITRIL/VALSARTAN 24-26 MG TABLET 1 TAB PO (21:45)
[2024-10-25] MEDS: DONEPEZIL HCL 5 MG TABLET PO (21:45)
[2024-10-26] VITALS (10 sets, daily range): BP systolic 115–116; BP diastolic 67–78; PULSE 65–90; RESP 15–18; TEMP 36.1–36.8; O2SAT 98–100
[2024-10-26 05:55] LABS: Hematocrit 47.2 % (42.0-52.0); Hemoglobin 15.1 g/dL (14.0-18.0); Mean Corpuscular Hemoglobin 28.4 pg (26-34); Mean Corpuscular Volume 88.9 fl (80-100); Mean Platelet Volume 9.5 fl (7.4-10.4); Platelet Count Result 350 k/mm3 (150-375); Red Blood Count 5.31 M/mm3 (4.6-6.20); Red Cell Distribution Width 14.7 % (11.5-14.5); White Blood Count 10.6 K/mm3 (4.5-10.0)
[2024-10-26 06:12] LABS: Alanine Aminotransferase 22 U/L (6-50); Albumin Level 3.3 g/dL (3.5-5.1); Alkaline Phosphatase 71 U/L (38-126); Anion Gap 7 mmol/L (4-12); Aspartate Amino Transferase 35 U/L (17-59); Blood Urea Nitrogen 22 mg/dL (9-20); Calcium 8.7 mg/dL (8.4-10.2); Carbon Dioxide 29 mmol/L (22-30); Chloride 97 mmol/L (98-107); Estimated CRCL calculation 81 ml/min; Estimated Glomerular Filt Rate > 60; Glucose 113 mg/dL (65-110); Potassium 4.3 mmol/L (3.4-5.0); Sodium 133 mmol/L (137-145)
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
[2024-10-26] MEDS: METOPROLOL SUCCINATE EXT REL 100 MG TABCR PO ×2 (09:17→18:16)
[2024-10-26] MEDS: SACUBITRIL/VALSARTAN 24-26 MG TABLET 1 TAB PO ×2 (09:18→21:03)
[2024-10-26] MEDS: MEMANTINE 5 MG TABLET PO (09:18)
[2024-10-26] MEDS: TAMSULOSIN HCL 0.4 MG CAPSULE PO (09:18)
[2024-10-26] MEDS: ENOXAPARIN 40 MG/0.4 ML SYRINGE SUB-Q (09:18)
[2024-10-26] MEDS: CEFDINIR 300 MG CAPSULE PO ×2 (09:18→21:03)
--- NOTE | 2024-10-26 12:01 | PM.PNCARD ---
Progress Note: A&P Assessment and Plan (1) Atrial fibrillation with RVR: Code(s): I48.91 - Unspecified atrial fibrillation Status: Acute Plan Atrial fibrillation rate controlled Cardiomyopathy ejection fraction 25% global hypokinesis currently euvolemic Dementia Plan The patient was deemed not oral anticoagulation candidate because of recurrent falls Continue beta-jordan and Entresto Repeat echocardiogram as outpatient Follow-up in the clinic Subjective Date/time seen: 10/26/24 12:01 Interval history: No acute events Review of Systems Review of Systems: All systems reviewed & are unremarkable except as noted in HPI and below Exam Narrative: General:no acute respiratory distress, sitting up in chair Chest: Lungs are clear to auscultation bilaterally. CV: Heart was irregularly irregular rate and rhythm. Abd: Abdomen was soft. Nontender. Nondistended. Positive bowel sounds. Neuro: Patient is alert and oriented x2 (person, place). Speech is clear. Objective Data Vital Signs Vital Signs: Vital Signs - 24 hr 10/25/24 12:03 10/25/24 14:00 10/25/24 16:01 Temperature 36.2 C L Pulse Rate 66 100 69 Respiratory Rate 20 Blood Pressure 117/61 Pulse Oximetry 98 Oxygen Delivery Fraction of Inspired Oxygen 10/25/24 16:32 10/25/24 19:32 10/25/24 20:00 Temperature 36.5 C Pulse Rate 71 67 69 Respiratory Rate 14 Blood Pressure 110/69 Pulse Oximetry 100 Oxygen Delivery Fraction of Inspired Oxygen 10/25/24 21:32 10/26/24 00:00 10/26/24 04:00 Temperature Pulse Rate 90 78 Respiratory Rate 20 Blood Pressure Pulse Oximetry 97 Oxygen Delivery Room Air Fraction of Inspired Oxygen 21 10/26/24 05:39 10/26/24 09:17 Temperature 36.2 C L Pulse Rate 68 74 Respiratory Rate 15 Blood Pressure 116/67 Pulse Oximetry 98 Oxygen Delivery Fraction of Inspired Oxygen Intake/Output Intake/Output: Intake & Output 10/23/24 10/24/24 10/25/24 10/26/24 23:59 23:59 23:59 23:59 Intake Total 835 1590 438 680 Output Total 1700 2150 Balance -865 -560 438 680 Meds/Results Medications: Active Medications Generic Name Dose Route Start Last Admin Trade Name Freq PRN Reason Stop Dose Admin Acetaminophen 650 mg 10/20/24 06:30 10/20/24 08:16 Acetaminophen 325 Mg Tablet PO 650 mg Q4H PRN Administration Mild Pain (1-3) or Fever Cefdinir 300 mg 10/24/24 09:00 10/26/24 09:18 Cefdinir 300 Mg Capsule PO 10/26/24 21:01 300 mg Q12HR JESSICA Administration Donepezil HCl 5 mg 10/20/24 21:00 10/25/24 21:45 Donepezil Hcl 5 Mg Tablet PO 5 mg HS JESSICA Administration Enoxaparin Sodium 40 mg 10/21/24 09:00 10/26/24 09:18 Enoxaparin 40 Mg/0.4 Ml Syringe SUB-Q 40 mg DAILY JESSICA Administration Hydroxyzine HCl 25 mg 10/20/24 17:04 10/25/24 21:45 Hydroxyzine Hcl 50 Mg/Ml Vial IM 25 mg Q4H PRN Administration Anxiety Memantine 5 mg 10/21/24 09:00 10/26/24 09:18 Memantine 5 Mg Tablet PO 5 mg QAM JESSICA Administration Metoprolol Succinate 100 mg 10/25/24 17:00 10/26/24 09:17 Metoprolol Succinate Ext Rel 100 Mg Tabcr PO 100 mg BID JESSICA Administration Ondansetron HCl 4 mg 10/20/24 06:30 Ondansetron Inj 4 Mg/2 Ml Vial IV PUSH Q4H PRN Nausea Perflutren Lipid Microsphere 0 ml 10/23/24 16:29 Perflutren Lipid Microspheres 1.5 Ml Vial Diluted To 10 Ml Total Volume IV PUSH 10/26/24 16:30 ONCE PRN adequate visualization Protocol Sacubitril/Valsartan 1 tab 10/25/24 21:00 10/26/24 09:18 Sacubitril/Valsartan 24-26 Mg Tablet PO 1 tab Q12HR JESSICA Administration Tamsulosin HCl 0.4 mg 10/22/24 09:00 10/26/24 09:18 Tamsulosin Hcl 0.4 Mg Capsule PO 0.4 mg QAM JESSICA Administration Radiology Results: ITS Impressions Wrist X-Ray 10/20/24 06:38 Impression: Mild degenerative change, as above. Chest X-Ray 10/20/24 06:39 Impression: Questionable minimal haziness left upper lobe. Correlate for possible pneumonia. Head CT 10/20/24 06:50 Impression: Questionable hyperdense left MCA sign. If there is concern for acute infarct, then CT angiogram or MR would be recommended for further evaluation. Correlate with clinical signs/symptoms. Atrophy and chronic white matter changes, as above. Carotid Doppler Study 10/20/24 16:31 IMPRESSION: 1. Less than 50% stenosis in the right internal carotid artery by sonographic criteria. 2. Less than 50% stenosis in the left internal carotid artery by sonographic criteria. Labs Labs: Laboratory Results - last 24 hr 10/26/24 05:26 WBC 10.6 H RBC 5.31 Hgb 15.1 Hct 47.2 MCV 88.9 MCH 28.4 MCHC 32.0 RDW 14.7 H Plt Count 350 MPV 9.5 Sodium 133 L Potassium 4.3 Chloride 97 L Carbon Dioxide 29 Anion Gap 7 BUN 22 H Creatinine 0.67 L Estim Creat Clear Calc 81 Estimated GFR > 60 Glucose 113 H Calcium 8.7 Total Bilirubin 1.0 AST 35 ALT 22 Alkaline Phosphatase 71 Total Protein 6.0 L Albumin 3.3 L
[2024-10-26] MEDS: hydrOXYzine HCl 50 MG/ML VIAL 25 MG IM (19:51)
[2024-10-26] MEDS: DONEPEZIL HCL 5 MG TABLET PO (21:03)
[2024-10-26] MEDS: hydrOXYzine HCl 50 MG/ML VIAL IM (23:21)
[2024-10-27] VITALS (11 sets, daily range): BP systolic 113–114; BP diastolic 60–76; PULSE 62–95; RESP 16–20; TEMP 36.5–36.6; O2SAT 90–100
[2024-10-27] MEDS: traZODone HCL 50 MG TABLET PO (00:19)
--- NOTE | 2024-10-27 01:47 | ECG_ITS ---
Test Date: 2024-10-27 02:04:20 Measurements Intervals [place] Rate: 67 P: 24 [place]: 179 QRS: -15 QRSD: 89 T: 107 QT: 427 QTc: 453 Interpretive Statements SINUS RHYTHM POSSIBLE RIGHT VENTRICULAR CONDUCTION DELAY INFERIOR INFARCT, AGE INDETERMINATE BORDERLINE T WAVE ABNORMALITY- LAT/HIGH LAT LEADS BASELINE ARTIFACT- V1-V6 ABNORMAL ECG Compared to ECG 10/22/2024 14:51:14 Atrial fibrillation no longer present POSSIBLE ISCHEMIA NO LONGER PRESENT Electronically Signed On 10-27-2024 06:24:57 CDT by Mars Acuña D.O.
[2024-10-27] MEDS: QUEtiapine FUMARATE 25 MG TABLET PO ×3 (02:08→21:20)
[2024-10-27] MEDS: traMADol HCL (*CRX) 25 MG TABLET PO (04:41)
[2024-10-27 04:54] LABS: Methylmalonic Acid 266 nmol/L (85-423)
[2024-10-27 06:17] LABS: Alanine Aminotransferase 24 U/L (6-50); Albumin Level 3.6 g/dL (3.5-5.1); Alkaline Phosphatase 66 U/L (38-126); Anion Gap 8 mmol/L (4-12); Aspartate Amino Transferase 33 U/L (17-59); Bilirubin,Total 0.7 mg/dL (0.2-1.3); Blood Urea Nitrogen 25 mg/dL (9-20); Calcium 8.7 mg/dL (8.4-10.2); Carbon Dioxide 29 mmol/L (22-30); Chloride 96 mmol/L (98-107); Estimated CRCL calculation 67 ml/min; Estimated Glomerular Filt Rate > 60; Glucose 127 mg/dL (65-110); Potassium 4.1 mmol/L (3.4-5.0); Sodium 133 mmol/L (137-145)
[2024-10-27 06:18] LABS: Hematocrit 48.4 % (42.0-52.0); Hemoglobin 15.4 g/dL (14.0-18.0); Mean Corpuscular HGB Conc 31.8 g/dl (32-36); Mean Corpuscular Hemoglobin 28.6 pg (26-34); Mean Corpuscular Volume 89.8 fl (80-100); Mean Platelet Volume 9.7 fl (7.4-10.4); Platelet Count Result 395 k/mm3 (150-375); Red Blood Count 5.39 M/mm3 (4.6-6.20); Red Cell Distribution Width 14.6 % (11.5-14.5); White Blood Count 10.4 K/mm3 (4.5-10.0)
[2024-10-27] MEDS: SACUBITRIL/VALSARTAN 24-26 MG TABLET 1 TAB PO ×2 (08:20→21:20)
[2024-10-27] MEDS: MEMANTINE 5 MG TABLET PO (08:20)
[2024-10-27] MEDS: METOPROLOL SUCCINATE EXT REL 100 MG TABCR PO ×2 (08:20→16:38)
[2024-10-27] MEDS: TAMSULOSIN HCL 0.4 MG CAPSULE PO (08:20)
[2024-10-27] MEDS: ENOXAPARIN 40 MG/0.4 ML SYRINGE SUB-Q (08:21)
--- NOTE | 2024-10-27 09:38 | PCNWS ---
Weekly nutritional screen. Patient is tolerating current heart healthy diet with adequate intake 100% of meals, Ensure Enlive in place BID. No weight loss reported. No nutritional recommendations at this time.
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
--- NOTE | 2024-10-27 14:56 | P.CONUR_ITS ---
Assessment and Plan Assessment and plan (1) Acute retention of urine: Code(s): R33.8 - Other retention of urine Status: Acute Assessment and Plan: Likely multifactorial. Definitely could be exacerbated by dementia and decreased mental status. BPH could be playing a role as well. Unclear if it was just elevated residual or truly in urinary retention. At any rate Mendoza catheter is in place. Start Flomax 0.4 mg at bedtime. Can do a voiding trial before discharge. May not be an ideal candidate for indwelling catheter if he has a history of pulling out IVs and medical interventions (2) Abnormal urinalysis: Code(s): R82.90 - Unspecified abnormal findings in urine Status: Acute Assessment and Plan: Unspecified bacillus. Unclear if this is truly infection versus colonization versus asymptomatic bacteriuria. Note in chart states antibiotics to be discontinued October 26 Urology Consult Note HPI Date Seen: 10/27/24 Requesting Physician: Mera Padilla PA-C Primary Care Provider: PHYSICIAN NOT ON STAFF Consult Narrative Narrative: Sky Hurtado is a 79 year old male who is currently admitted for frequent falls, wrist fracture, worsening dementia. Very difficult to get a history out of the patient and not sure if what he is telling me is reliable. There is a sitter in the room because he pulls at his IV. She also tells me he has definite dementia and homes all day and night. Mendoza catheter was placed within the last day due to him retaining urine. It is unclear to me if this which was noted on a bladder scan or if he was truly in urinary retention. At any rate a Mendoza catheter stent placed. He has a urine culture on this admission that shows an unspecified bacillus species. It is unclear to me if this is contamination versus a true infection versus asymptomatic bacteriuria. He has been on antibiotics. He denies any voiding symptoms such as dysuria. There is a note in the chart that states that antibiotics was supposed to be discontinued on October 26, 2024 Review of Systems 2 Review of Systems: ROS unobtainable: Yes unobtainable due to medical condition Constitutional: Constitutional: Reports no additional constitutional complaints PMFSH Past Medical History Medical History Left wrist pain Dementia of the Alzheimer's type Social History Social History Smoking status: Former smoker Tobacco type: cigarettes Second hand tobacco smoke exposure: No Additional smoking assessment comments: quite many years ago Alcohol intake: unknown Substance use: unknown Spiritual care concerns: No Meds Home Medications and Allergies Home Medications ?Medication ?Instructions ?Recorded ?Confirmed ?Type digoxin 125 mcg (0.125 mg) tablet 10/20/24 History donepezil 10 mg tablet mg 10/20/24 History furosemide 40 mg tablet mg 10/20/24 History metoprolol tartrate 100 mg tablet 100 mg PO Q12H 10/20/24 10/22/24 History quetiapine 25 mg tablet mg 10/20/24 History spironolactone 25 mg tablet mg 10/20/24 History tamsulosin 0.4 mg capsule mg PO 10/20/24 History Allergies Allergy/AdvReac Type Severity Reaction Status Date / Time morphine Allergy Unknown Unverified 10/20/24 07:38 Penicillins Allergy Unknown Unverified 10/23/24 09:43 pseudoephedrine (From Allergy Unknown Unverified 10/20/24 07:38 Sudafed) ANITIHISTAMINE, NASAL Allergy Unknown Uncoded 10/20/24 07:38 DECONGESTANT Vital Signs Vital Signs - 24 hr 10/26/24 16:00 10/26/24 20:00 10/26/24 20:00 Temperature Pulse Rate 73 73 Respiratory Rate Blood Pressure Pulse Oximetry Oxygen Delivery Room Air 10/26/24 22:13 10/27/24 00:00 10/27/24 04:00 Temperature 98.2 F Pulse Rate 73 74 71 Respiratory Rate 16 Blood Pressure 116/73 Pulse Oximetry 98 Oxygen Delivery 10/27/24 05:17 10/27/24 08:00 10/27/24 08:20 Temperature 97.7 F Pulse Rate 67 65 66 Respiratory Rate 16 Blood Pressure 114/60 Pulse Oximetry 100 Oxygen Delivery 10/27/24 12:00 Temperature Pulse Rate 63 Respiratory Rate Blood Pressure Pulse Oximetry Oxygen Delivery Exam 2 Const: General: healthy appearing, no acute distress, well developed and alert Nutritional Appearance: average body habitus Orientation/consciousness: c onfusion Limitations: altered mental status HENMT: Head: normal to inspection Ears: hearing grossly abnormal bilaterally (Very hard of hearing) Eyes: General: appearance normal, both eyes and all related structures Neck: Neck: normal visual inspection Resp: Effort & Inspection: normal respiratory effort and not labored Urinary Catheter: Urinary Catheter: patent and draining and urine clear Skin: General skin exam: No normal color (Looks to have some cellulitis of the lower extremities as well as some poss) Psych: Appearance: grossly abnormal, poorly kempt and disheveled Mental Status: mental status grossly abnormal Results Labs 10/27/24 05:39 10/27/24 05:39 Labs: Short CBC 10/27/24 Range/Units 05:39 WBC 10.4 H (4.5-10.0) K/mm3 Hgb 15.4 (14.0-18.0) g/dL Hct 48.4 (42.0-52.0) % Plt Count 395 H (150-375) k/mm3 BMP 10/27/24 05:39 Sodium 133 L Potassium 4.1 Chloride 96 L Carbon Dioxide 29 BUN 25 H Creatinine 0.83 Glucose 127 H Calcium 8.7 Liver Function 10/27/24 Range/Units 05:39 Total Bilirubin 0.7 (0.2-1.3) mg/dL AST 33 (17-59) U/L ALT 24 (6-50) U/L Alkaline Phosphatase 66 (38-126) U/L Albumin 3.6 (3.5-5.1) g/dL
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
[2024-10-28 09:08] VITALS: BP 99/66; PULSE 64; RESP 14; TEMP 36.3; O2SAT 99
[2024-10-28 09:23] VITALS: PULSE 60
[2024-10-28] MEDS: QUEtiapine FUMARATE 25 MG TABLET PO ×2 (09:23→20:44)
[2024-10-28] MEDS: SACUBITRIL/VALSARTAN 24-26 MG TABLET 1 TAB PO ×2 (09:23→20:44)
[2024-10-28] MEDS: ENOXAPARIN 40 MG/0.4 ML SYRINGE SUB-Q (09:23)
[2024-10-28] MEDS: TAMSULOSIN HCL 0.4 MG CAPSULE PO (09:23)
[2024-10-28] MEDS: MEMANTINE 5 MG TABLET PO (09:23)
[2024-10-28] MEDS: METOPROLOL SUCCINATE EXT REL 100 MG TABCR PO (09:23)
[2024-10-28 09:24] VITALS: BP 103/69
[2024-10-28 13:31] VITALS: BP 101/58; PULSE 59; RESP 16; TEMP 36.6; O2SAT 100
[2024-10-28 22:00] VITALS: BP 106/71; PULSE 60; RESP 18; TEMP 36.5; O2SAT 100
[2024-10-29] MEDS: traMADol HCL (*CRX) 25 MG TABLET PO (00:19)
[2024-10-29 06:00] VITALS: BP 89/58; PULSE 63; RESP 12; TEMP 36.3; O2SAT 99
[2024-10-29 06:37] LABS: Glucose Point of Care 147 mg/dl (65-105)
[2024-10-29 07:22] VITALS: BP 100/48
[2024-10-29] MEDS: MEMANTINE 5 MG TABLET PO (09:24)
[2024-10-29] MEDS: ENOXAPARIN 40 MG/0.4 ML SYRINGE SUB-Q (09:24)
[2024-10-29] MEDS: TAMSULOSIN HCL 0.4 MG CAPSULE PO (09:24)
[2024-10-29] MEDS: METOPROLOL SUCCINATE EXT REL 100 MG TABCR PO ×2 (09:24→16:49)
[2024-10-29] MEDS: QUEtiapine FUMARATE 25 MG TABLET PO ×2 (09:24→20:20)
[2024-10-29] MEDS: SACUBITRIL/VALSARTAN 24-26 MG TABLET 1 TAB PO ×2 (09:25→20:21)
[2024-10-29 13:50] VITALS: BP 139/74; PULSE 65; RESP 16; TEMP 36.6; O2SAT 100
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
[2024-10-29 16:49] VITALS: PULSE 66
[2024-10-29 21:53] VITALS: BP 95/68; PULSE 65; RESP 16; TEMP 36.9; O2SAT 99
[2024-10-30 04:24] VITALS: BP 104/66; PULSE 58; RESP 12; TEMP 37.2; O2SAT 100
--- NOTE | 2024-10-30 08:32 | PCPTNOTE ---
Patient declined PT at this time stating maybe later.
[2024-10-30 08:56] VITALS: PULSE 62
[2024-10-30] MEDS: METOPROLOL SUCCINATE EXT REL 100 MG TABCR PO ×2 (08:56→16:51)
[2024-10-30] MEDS: MEMANTINE 5 MG TABLET PO (08:56)
[2024-10-30] MEDS: QUEtiapine FUMARATE 25 MG TABLET PO ×2 (08:56→20:32)
[2024-10-30] MEDS: SACUBITRIL/VALSARTAN 24-26 MG TABLET 1 TAB PO ×2 (08:56→20:32)
[2024-10-30] MEDS: TAMSULOSIN HCL 0.4 MG CAPSULE PO (08:56)
[2024-10-30] MEDS: ENOXAPARIN 40 MG/0.4 ML SYRINGE SUB-Q (08:57)
[2024-10-30 13:48] VITALS: BP 106/64; PULSE 63; RESP 19; TEMP 36.3; O2SAT 97
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
[2024-10-30 16:51] VITALS: PULSE 62
[2024-10-30 21:17] VITALS: BP 105/69; PULSE 65; RESP 20; TEMP 36.7; O2SAT 100
[2024-10-31] VITALS (12 sets, daily range): BP systolic 78–107; BP diastolic 58–81; PULSE 55–108; RESP 14–19; TEMP 36.4–36.5; O2SAT 92–100
--- NOTE | 2024-10-31 03:55 | ECG_ITS ---
Test Date: 2024-10-31 04:14:18 Measurements Intervals [place] Rate: 91 P: 0 MA: 0 QRS: -29 QRSD: 97 T: 54 QT: 400 QTc: 492 Interpretive Statements ATRIAL FLUTTER INCOMPLETE RIGHT BUNDLE BRANCH BLOCK BORDERLINE T WAVE ABNORMALITY- ANTEROLATERAL LEADS ABNORMAL ECG Compared to ECG 10/31/2024 04:12:21 SINUS RHYTHM NO LONGER PRESENT Electronically Signed On 10-31-2024 07:16:59 CDT by Mars Acuña D.O.
[2024-10-31 04:28] LABS: Hematocrit 50.7 % (42.0-52.0); Mean Corpuscular HGB Conc 31.6 g/dl (32-36); Mean Corpuscular Hemoglobin 28.3 pg (26-34); Mean Corpuscular Volume 89.6 fl (80-100); Mean Platelet Volume 9.6 fl (7.4-10.4); Platelet Count Result 330 k/mm3 (150-375); Red Blood Count 5.66 M/mm3 (4.6-6.20); Red Cell Distribution Width 14.6 % (11.5-14.5)
[2024-10-31 04:46] LABS: Alanine Aminotransferase 20 U/L (6-50); Albumin Level 3.4 g/dL (3.5-5.1); Alkaline Phosphatase 67 U/L (38-126); Anion Gap 9 mmol/L (4-12); Aspartate Amino Transferase 27 U/L (17-59); Bilirubin,Total 0.5 mg/dL (0.2-1.3); Blood Urea Nitrogen 25 mg/dL (9-20); Calcium 8.7 mg/dL (8.4-10.2); Carbon Dioxide 27 mmol/L (22-30); Chloride 98 mmol/L (98-107); Estimated CRCL calculation 74 ml/min; Estimated Glomerular Filt Rate > 60; Glucose 106 mg/dL (65-110); Magnesium 2.2 mg/dL (1.6-2.3); Phosphorus 3.9 mg/dL (2.5-4.5); Potassium 4.4 mmol/L (3.4-5.0); Sodium 134 mmol/L (137-145)
[2024-10-31 05:04] LABS: Troponin I < 0.012 ng/mL (0.000-0.034)
[2024-10-31 05:18] LABS: Alveolar/Arterial O2 Gradient 10.3 mmHg; Fractional Inspired Oxygen 21 %; Oxygen Content ABG 22.4 %vol (16.0-22.0); Oxygen Saturation ABG 97.4 % (95.0-100.0); Oxyhemoglobin 97.1 % THb (90.0-100.0); PCO2 ABG 38.5 mmHg (35.0-45.0); PO2 ABG 93.3 mmHg (80.0-100.0); PO2 FiO2 Ratio Arterial Blood 4.44 %; Total Hemoglobin 16.4 g/dL (12.0-18.0); pH ABG 7.447 (7.350-7.450)
[2024-10-31 05:21] LABS: Modified Allen's Test Pass; Site Drawn LEFT RADIAL
[2024-10-31] MEDS: SODIUM CHLORIDE 0.9% IV 500 ML 999 ML IV CONT (06:00)
--- NOTE | 2024-10-31 06:01 | PM.EVENT ---
Event Note Event Note Event Note: Orders placed under my name earlier in the night. Unaware. Notified by nursing staff at 5:20 a.m. patient had labile heart rate between 55 and 108. An EKG and troponin and other labs was performed as well as an ABG. Blood pressure as low as 78/60. Nursing noted the patient to have been waking up from his sleep taking a few rapid deep breaths. Upon evaluation of the patient myself he denies any complaints including shortness of breath or pain or fever although he appears to be a poor historian with dementia. Heart rate in the 70s and irregular. Blood pressure remains the same. Lungs clear to auscultation. Abdomen benign. Lower extremities without edema. Poor skin turgor and very dry mucous membranes. He has also had a -5.3 L fluid balance since admission. Ordered BMP, chest x-ray, 500 cc normal saline fluid bolus. Advised to check blood pressures every 15 minute thereafter until normalized. Ordered telemetry and fall precautions with bed rest. Placed metoprolol and Entresto on hold.
[2024-10-31 06:20] LABS: NT Pro B Type Natriuretic Pept 378 pg/mL (19.9-100)
--- NOTE | 2024-10-31 06:33 | PC.NURSE ---
Nancy Rowley RN went in to check on pt and pt c/o SOB and chest pain. While I got vital signs on pt Feliberto humphries RN put in orders for an EKG and labs. The pt's BP was 78/60 manually while he was sitting in the chair, spO2 was 98% and pulse was 55. Pt was helped to bed and the RT performed an EKG which showed atrial flutter. I notified Dr. Barragan of the EKG finding and my assessment. He came an assessed the pt and ordered a 500mL normal saline bolus and blood pressures [id number] after the bolus.
[2024-10-31] MEDS: TAMSULOSIN HCL 0.4 MG CAPSULE PO (08:25)
[2024-10-31] MEDS: QUEtiapine FUMARATE 25 MG TABLET PO ×2 (08:25→20:49)
[2024-10-31] MEDS: ENOXAPARIN 40 MG/0.4 ML SYRINGE SUB-Q (08:25)
[2024-10-31] MEDS: MEMANTINE 5 MG TABLET PO (08:25)
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
--- NOTE | 2024-10-31 12:10 | PC.NURSE ---
Patient refusing urinary catheter placement. Patient states that it has been placed and taken out enough and he isn't doing it again. Hospitalist notified. Continue to educate patient importance of urinary catheter and risks. If patient willing in the future, place urinary catheter for retention. Patient educated on urinary retention and risks. Patient continues to refuse placement of urinary catheter. Urology to be reconsulted for urinary retention per hospitalsit.
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
[2024-10-31] MEDS: DONEPEZIL HCL 5 MG TABLET PO (20:49)
[2024-10-31] MEDS: traMADol HCL (*CRX) 25 MG TABLET PO (20:49)
[2024-10-31] MEDS: SODIUM CHLORIDE 0.9% IV 500 ML IV CONT (21:13)
[2024-11-01] VITALS (9 sets, daily range): BP systolic 98–119; BP diastolic 70–78; PULSE 70–123; RESP 14–20; TEMP 35.5–36.8; O2SAT 98–100
--- NOTE | 2024-11-01 01:16 | P.PNCROSS_ITS ---
Event Note Event Note Event Note: Patient was restless but not necessarily violent or disruptive. He seemed of c omfortable and was shifting around in his chair. I gave an order for 1 time dose of 1 g Tylenol a had dose of tramadol. Patient's labs and EKG were reviewed. He does have some borderline QT prolongation. If he were to require additional anxiety meds I would not want to give additional doses of his Seroquel. If symptoms do not improve will consider small dose of Zyprexa.
[2024-11-01] MEDS: ACETAMINOPHEN 500 MG TABLET 1000 MG PO (01:20)
[2024-11-01] MEDS: traMADol HCL (*CRX) 25 MG TABLET PO (01:21)
[2024-11-01] MEDS: ACETAMINOPHEN 325 MG TABLET 650 MG PO ×2 (08:19→20:15)
[2024-11-01] MEDS: QUEtiapine FUMARATE 25 MG TABLET PO ×2 (08:20→20:16)
[2024-11-01] MEDS: ENOXAPARIN 40 MG/0.4 ML SYRINGE SUB-Q (08:20)
[2024-11-01] MEDS: TAMSULOSIN HCL 0.4 MG CAPSULE PO (08:20)
[2024-11-01] MEDS: MEMANTINE 5 MG TABLET PO (08:20)
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
[2024-11-01] MEDS: DONEPEZIL HCL 5 MG TABLET PO (20:16)
[2024-11-02] VITALS (16 sets, daily range): BP systolic 107–146; BP diastolic 67–95; PULSE 93–144; RESP 16–20; TEMP 36.6–36.8; O2SAT 88–98
--- NOTE | 2024-11-02 06:29 | ECG_ITS ---
Test Date: 2024-11-02 06:46:50 Measurements Intervals [place] Rate: 122 P: 0 IL: 0 QRS: 191 QRSD: 84 T: 125 QT: 314 QTc: 448 Interpretive Statements ATRIAL FIBRILLATION WITH RAPID VENTRICULAR RESPONSE LIMB LEAD REVERSAL POSSIBLE RIGHT VENTRICULAR CONDUCTION DELAY DELAYED PRECORDIAL R/S TRANSITION ABNORMAL ECG Compared to ECG 10/31/2024 04:14:18 Atrial flutter no longer present HEART RATE HAS INCREASED Electronically Signed On 11-02-2024 08:00:35 CDT by Mars Acuña D.O.
--- NOTE | 2024-11-02 06:30 | P.PNCROSS_ITS ---
Event Note Event Note Event Note: Nursing staff called just prior to shift change patient had went from AFib rate controlled to AFib RVR with rates in the 130s to 140s. The patient who is only alert orient x2 was reporting some chest discomfort. The patient had not had any labs in the last couple of days subsequently I ordered electrolyte panel to rule out any component of electrolyte derangement that could be worsening the patient's arrhythmia. Will hold off on giving any additional cardiac medications and will see if the patient's heart rate does not settle down since he had just gotten up and ambulated to the bathroom. If no improvement in patient's heart rate we may need to re contact cardiology for further recommendations. Will also check CBC to rule possible acute component of infection but patient currently afebrile. Will check stat EKG given report of chest pain. Will also check baseline troponin and 3 are troponin then re- evaluate.
--- NOTE | 2024-11-02 06:39 | PC.NURSE ---
Pt is on telemetery and while using the restroom his telemetery showed a-fib witha heart rate in the 130's. Pt was taken back to a recliner, the pt refused to go in the bed. His heart rate continued to sustain in the the 130's while laying back in the recliner. The pt also c/o chest pain. I contacted the international sales manager provider Dr. Rubin. Dr. Rubin put in orders for a stat ekg and labs.
[2024-11-02 06:50] LABS: Hematocrit 49.4 % (42.0-52.0); Hemoglobin 15.7 g/dL (14.0-18.0); Mean Corpuscular HGB Conc 31.8 g/dl (32-36); Mean Corpuscular Hemoglobin 28.4 pg (26-34); Mean Corpuscular Volume 89.3 fl (80-100); Mean Platelet Volume 9.4 fl (7.4-10.4); Platelet Count Result 350 k/mm3 (150-375); Red Blood Count 5.53 M/mm3 (4.6-6.20); Red Cell Distribution Width 14.7 % (11.5-14.5); White Blood Count 8.9 K/mm3 (4.5-10.0)
[2024-11-02 07:02] LABS: Anion Gap 6 mmol/L (4-12); Blood Urea Nitrogen 17 mg/dL (9-20); Calcium 8.7 mg/dL (8.4-10.2); Carbon Dioxide 27 mmol/L (22-30); Chloride 103 mmol/L (98-107); Estimated CRCL calculation 81 ml/min; Estimated Glomerular Filt Rate > 60; Glucose 110 mg/dL (65-110); Potassium 4.5 mmol/L (3.4-5.0); Sodium 136 mmol/L (137-145)
[2024-11-02 07:13] LABS: Troponin I < 0.012 ng/mL (0.000-0.034)
[2024-11-02] MEDS: METOPROLOL TARTRATE INJ 5 MG/5 ML VIAL IV PUSH (07:16)
[2024-11-02] MEDS: ACETAMINOPHEN 325 MG TABLET 650 MG PO (08:13)
[2024-11-02] MEDS: TAMSULOSIN HCL 0.4 MG CAPSULE PO (08:14)
[2024-11-02] MEDS: MEMANTINE 5 MG TABLET PO (08:15)
[2024-11-02] MEDS: ENOXAPARIN 40 MG/0.4 ML SYRINGE SUB-Q (08:15)
[2024-11-02] MEDS: QUEtiapine FUMARATE 25 MG TABLET PO ×2 (08:15→20:54)
[2024-11-02] MEDS: SACUBITRIL/VALSARTAN 24-26 MG TABLET 1 TAB PO ×2 (08:45→20:55)
[2024-11-02] MEDS: METOPROLOL TARTRATE 25 MG TABLET PO ×2 (08:45→20:56)
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
[2024-11-02 09:56] LABS: Troponin I < 0.012 ng/mL (0.000-0.034)
[2024-11-02] MEDS: DONEPEZIL HCL 5 MG TABLET PO (20:53)
[2024-11-03] VITALS (11 sets, daily range): BP systolic 105–126; BP diastolic 56–93; PULSE 68–157; RESP 16–20; TEMP 36.5–36.7; O2SAT 97–99
[2024-11-03] MEDS: METOPROLOL TARTRATE 25 MG TABLET PO ×3 (08:35→21:21)
[2024-11-03] MEDS: SACUBITRIL/VALSARTAN 24-26 MG TABLET 1 TAB PO ×2 (08:35→20:05)
[2024-11-03] MEDS: TAMSULOSIN HCL 0.4 MG CAPSULE PO (08:35)
[2024-11-03] MEDS: QUEtiapine FUMARATE 25 MG TABLET PO ×2 (08:35→20:05)
[2024-11-03] MEDS: MEMANTINE 5 MG TABLET PO (08:35)
[2024-11-03] MEDS: ENOXAPARIN 40 MG/0.4 ML SYRINGE SUB-Q (08:35)
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
--- NOTE | 2024-11-03 11:08 | PCNWS ---
Weekly nutritional screen. Patient is tolerating current Heart healthy, soft & bite size L6 diet with adequate intake, 80-100%. Ensure Enlive BID (350 kcal, 20 g protein). No weight loss reported. No nutritional needs at this time. Awaiting placement.
[2024-11-03] MEDS: METOPROLOL TARTRATE INJ 5 MG/5 ML VIAL IV PUSH ×2 (16:41→21:16)
[2024-11-03] MEDS: DONEPEZIL HCL 5 MG TABLET PO (20:05)
[2024-11-03] MEDS: ACETAMINOPHEN 500 MG TABLET 1000 MG PO (23:01)
[2024-11-03] MEDS: traMADol HCL (*CRX) 25 MG TABLET PO (23:02)
[2024-11-04] VITALS (10 sets, daily range): BP systolic 102–139; BP diastolic 66–91; PULSE 72–138; RESP 20; TEMP 36.1–36.7; O2SAT 98–100
[2024-11-04] MEDS: TAMSULOSIN HCL 0.4 MG CAPSULE PO (09:32)
[2024-11-04] MEDS: SACUBITRIL/VALSARTAN 24-26 MG TABLET 1 TAB PO ×2 (09:32→21:00)
[2024-11-04] MEDS: QUEtiapine FUMARATE 25 MG TABLET PO (09:32)
[2024-11-04] MEDS: METOPROLOL TARTRATE 12.5 MG TABLET 37.5 MG PO ×2 (09:32→21:00)
[2024-11-04] MEDS: EUCERIN CREAM 120 GM JAR 1 APPLIC TOPICAL (09:33)
[2024-11-04] MEDS: MEMANTINE 5 MG TABLET PO (09:33)
[2024-11-04] MEDS: ENOXAPARIN 40 MG/0.4 ML SYRINGE SUB-Q (09:33)
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
[2024-11-04] MEDS: LACTATED RINGERS 1,000 ML 125 ML IV CONT (15:43)
[2024-11-04] MEDS: traMADol HCL (*CRX) 25 MG TABLET PO (17:23)
[2024-11-04] MEDS: QUEtiapine FUMARATE 25 MG TABLET 50 MG PO (21:00)
[2024-11-04] MEDS: DONEPEZIL HCL 5 MG TABLET PO (21:00)
[2024-11-05] VITALS (7 sets, daily range): BP systolic 96; BP diastolic 63; PULSE 69–96; RESP 20; O2SAT 99
[2024-11-05] MEDS: traMADol HCL (*CRX) 25 MG TABLET PO (01:01)
[2024-11-05] MEDS: ACETAMINOPHEN 325 MG TABLET 650 MG PO (01:02)
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
[2024-11-05] MEDS: MEMANTINE 5 MG TABLET PO (09:24)
[2024-11-05] MEDS: METOPROLOL TARTRATE 12.5 MG TABLET 37.5 MG PO (09:24)
[2024-11-05] MEDS: SACUBITRIL/VALSARTAN 24-26 MG TABLET 1 TAB PO (09:24)
[2024-11-05] MEDS: QUEtiapine FUMARATE 25 MG TABLET 50 MG PO (09:24)
[2024-11-05] MEDS: TAMSULOSIN HCL 0.4 MG CAPSULE PO (09:25)
[2024-11-05] MEDS: ENOXAPARIN 40 MG/0.4 ML SYRINGE SUB-Q (09:26)
[2024-11-05] MEDS: EUCERIN CREAM 120 GM JAR 1 APPLIC TOPICAL (09:43)
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
--- NOTE | 2024-11-06 08:22 | P.CDI_ITS ---
CDI Query Clarification Request Clarification request - UTI has been documented, chronic indwelling arias catheter documented. Please clarify if UTI is: * due to/associated with chronic indwelling arias catheter * not due to/associated with chronic indwelling arias catheter * unable to determine
--- NOTE | 2024-11-06 08:22 | WPDCDIQUERY2 ---
CDI Query Clarification Request Clarification request - UTI has been documented, chronic indwelling arias catheter documented. Please clarify if UTI is: due to/associated with chronic indwelling arias catheter not due to/associated with chronic indwelling arias catheter unable to determine
== END 2024-11-05 17:25 | DRG 56 ==
LOC: ANHED 10-20 06:32 → ANH3MEDSUR 10-20 07:23
PROVIDERS: General Practice; Internal Medicine; Nurse Practitioner; Psychiatry & Neurology Neurology; Admitting Provider Internal Medicine; Emergency Provider Emergency Medicine; Visit Provider Student in an Organized Health Care Education/Training Program
DX: G30.9 Alzheimer's disease, unspecified (principal); I50.31 Acute diastolic (congestive) heart failure; F02.811 Dementia in other diseases classified elsewhere, unspecified severity, with agitation; N39.0 Urinary tract infection, site not specified; I42.9 Cardiomyopathy, unspecified; B96.89 Other specified bacterial agents as the cause of diseases classified elsewhere; R00.0 Tachycardia, unspecified; M25.532 Pain in left wrist; I48.91 Unspecified atrial fibrillation; R33.9 Retention of urine, unspecified; J43.9 Emphysema, unspecified; R21 Rash and other nonspecific skin eruption; Z87.891 Personal history of nicotine dependence; Z85.828 Personal history of other malignant neoplasm of skin
CPT/HCPCS: 36415; 36600; 70450; 71045; 73110; 76775; 80048; 80053; 80061; 80162; 80307; 81001; 82306; 82607; 82746; 82805; 82948; 83690; 83735; 83880; 83921; 84100; 84443; 84484; 85018; 85025; 85027; 87086; 87637; 93005; 93306; 93880; 96361; 96365; 96374; 96375; 97110; 97116; 97161; 97165; 97530; 97535; 99285; A9270; G0378; J0696; J1630; J1650; J3410; J7040; J7120

== ENCOUNTER 2024-12-28 18:45 | Emergency (ER) | payer MEDICARE, SELFPAY ==
[2024-12-28 18:47] VITALS: BP 132/85; PULSE 83; RESP 18; TEMP 36.7; O2SAT 98
--- NOTE | 2024-12-28 19:18 | ED_ITS ---
HPI - Male Genitourinary General Chief complaint: Urogenital-Male Stated complaint: AMS, BLOODY URINE Time Seen by Provider: 12/28/24 18:56 Source: patient and RN notes reviewed Mode of arrival: ambulatory Limitations: dementia History of Present Illness HPI Narrative: 79y/o WM in the ED via EMS for hematuria. Pt A+OX2, knows name and place, unsure of year but can tell me the president. Per EMS report, pt has had 2 days f hematuria. Pt endorses having intermittent blood tinged urine, but denies any chase blood. Pt denies trauma to penis/urethra, does endorses having had a catheter recently in the past, but unsure of exact day. Pt denies any CP, SOB, abd pain, N/V, difficulty urinating, incontinence, bloody stools, fevers or chills. Related Data Home Medications ?Medication ?Instructions ?Recorded ?Confirmed ?Last Taken ?Type digoxin 125 mcg (0.125 mg) tablet 10/20/24 Unknown History donepezil 10 mg tablet mg 10/20/24 Unknown History furosemide 40 mg tablet mg 10/20/24 Unknown History metoprolol tartrate 100 mg tablet 100 mg PO Q12H 10/20/24 10/22/24 Unknown History quetiapine 25 mg tablet mg 10/20/24 Unknown History spironolactone 25 mg tablet mg 10/20/24 Unknown History tamsulosin 0.4 mg capsule mg PO 10/20/24 Unknown History Allergies Allergy/AdvReac Type Severity Reaction Status Date / Time morphine Allergy Unknown Unverified 11/03/24 00:30 Penicillins Allergy Unknown Unverified 11/03/24 00:30 pseudoephedrine (From Allergy Unknown Unverified 11/03/24 00:30 Sudafed) ANITIHISTAMINE, NASAL Allergy Unknown Uncoded 11/03/24 00:30 DECONGESTANT Review of Systems 2 Review of Systems: CONSTITUTIONAL: Denies fever, chills, or sweats. EYES: Denies visual changes, redness, or discharge. ENT: Denies rhinorrhea, congestion, sore throat, or otalgia. CARDIOVASCULAR: Denies chest pain, palpitations, or edema. RESPIRATORY: Denies cough or dyspnea. GASTROINTESTINAL: Denies abdominal pain, nausea, vomiting, or diarrhea. GENITOURINARY: Denies dysuria. Endorses hematuria. SKIN: Denies rash or itching. MUSCULOSKELETAL: Denies back pain, joint pain, or myalgia. NEUROLOGIC: Denies headache, numbness, or weakness. PSYCHIATRIC: Denies anxiety or depression. PMFSH Past Medical History Medical History Left wrist pain Dementia of the Alzheimer's type Social History Social History Smoking status: Former smoker Tobacco type: cigarettes Second hand tobacco smoke exposure: No Additional smoking assessment comments: quite many years ago Alcohol intake: unknown Substance use: unknown Spiritual care concerns: No Exam 2 Narrative: GENERAL: Well-appearing, well-nourished, and in no acute distress. HEAD: Normocephalic, atraumatic. EYES: PERRLA and EOMI. ENT: Nares clear, no rhinorrhea or epistaxis. Mucous membranes moist. NECK: Supple. CHEST: Clear to auscultation. No respiratory distress. HEART: Regular rate and rhythm. No murmur heard. Normal peripheral pulses. ABDOMEN: Soft, nontender, nondistended, normal active bowel sounds. : No trauma or blood to the urethra, normal penile exam. No edema noted to scrotum EXTREMITIES: Normal range of motion. BLE edema. SKIN: Warm, dry, no rash. Generalized BLE scaling. NEURO: No focal deficits. Alert and oriented x2, alert to self and place, unable to tell me the year but does know the president and he is on his second term. PSYCH: Normal mood and affect. Course Vital Signs Vital signs: Vital Signs Temperature 36.7 C 12/28/24 18:47 Pulse Rate 83 12/28/24 18:47 Respiratory Rate 18 12/28/24 18:47 Blood Pressure 132/85 12/28/24 18:47 Pulse Oximetry 98 12/28/24 18:47 Oxygen Delivery Room Air 12/28/24 18:47 Temperature 36.7 C 12/28/24 18:47 Pulse Rate 83 12/28/24 18:47 Respiratory Rate 18 12/28/24 18:47 Blood Pressure 132/85 12/28/24 18:47 Pulse Oximetry 98 12/28/24 18:47 Oxygen Delivery Room Air 12/28/24 18:47 MDM - Male Genitourinary MDM Narrative Medical decision making narrative: Patient calm and cooperative during entire stay in the department. UA obtained does not show UTI, patient being seen by primary care doc and treated appropriately for previous UTI. Bladder scan at 150 mL in the bladder per nurse. Will obtain CBC to rule out infectious process and CMP to rule out any kidney dysfunction. CBC and CMP unremarkable. Will discharge patient home under the care of son and [id number]. Differential Diagnosis Differential diagnosis: Likely urinary tract infection, urethritis and other (hematuria) Medical Records Attestation: I reviewed the patient's medical records. Lab Data Attestation: I reviewed the patient's lab results. 12/28/24 20:49 12/28/24 20:49 Labs: Lab Results 12/28/24 12/28/24 Range/Units 20:05 20:49 WBC 9.6 (4.5-10.0) K/mm3 RBC 5.72 (4.6-6.20) M/mm3 Hgb 16.3 (14.0-18.0) g/dL Hct 48.5 (42.0-52.0) % MCV 84.8 (80-100) fl MCH 28.5 (26-34) pg MCHC 33.6 (32-36) g/dl RDW 17.2 H (11.5-14.5) % Plt Count 206 (150-375) k/mm3 MPV 10.2 (7.4-10.4) fl Immature Gran % (Auto) 0.4 (0-0.5) % Neut % (Auto) 58.2 (45.5-73.1) % Lymph % (Auto) 23.5 (18.3-44.2) % [place] % (Auto) 14.1 H (2.6-8.5) % Eos % (Auto) 3.2 (0-4.4) % Baso % (Auto) 0.6 (0.2-1.2) % Lymph # (Auto) 2.26 (0.9-3.2) K/mm3 [place] # (Auto) 1.4 H (0.1-0.6) K/mm3 Eos # (Auto) 0.3 (0-0.3) K/mm3 Baso # (Auto) 0.1 (0.0-0.1) K/mm3 Abs Immat Gran (auto) 0.04 H (0.00-0.031) K/mm3 Absolute Neuts (auto) 5.6 (1.3-6.7) K/mm3 Absolute Nucleated RBC 0.000 (0.0-0.012) K/mm3 Nucleated RBC % 0.0 (0.0-0.2) % Sodium 137 (137-145) mmol/L Potassium 3.5 (3.4-5.0) mmol/L Chloride 99 (98-107) mmol/L Carbon Dioxide 32 H (22-30) mmol/L Anion Gap 6 (4-12) mmol/L BUN 9 D (9-20) mg/dL Creatinine 0.82 (0.7-1.3) mg/dL Estim Creat Clear Calc Not Reportable Estimated GFR > 60 (59 - ) Glucose 112 H (65-110) mg/dL Calcium 8.9 (8.4-10.2) mg/dL Total Bilirubin 1.4 H (0.2-1.3) mg/dL AST 35 (17-59) U/L ALT 24 (6-50) U/L Alkaline Phosphatase 40 (38-126) U/L Total Protein 6.7 (6.3-8.2) g/dL Albumin 3.8 (3.5-5.1) g/dL Urine Color Yellow (Yellow) Urine Appearance Clear (Clear) Urine pH 7.5 (5.0-9.0) Ur Specific [place] 1.017 (1.001-1.035) Urine Protein Negative (Negative) mg/dL Urine Glucose (UA) Negative (Negative) mg/dL Urine Ketones Negative (Negative) mg/dL Ur Blood (Man) Negative (Negative) Urine Nitrate Negative (Negative) Urine Bilirubin Negative (Negative) Urine Urobilinogen 2.0 H (<2.0) mg/dL Leukocyte Esterase Rfl Negative (Negative) EM/UL Discharge Plan Discharge Clinical Impression: Disorder of urinary system, unspecified Patient Disposition: Home Condition: Stable Instructions: Antibiotic Form, Urinary Tract Infection in Men (ED) Additional Instructions: Continue antibiotics as prescribed by primary care provider. Follow-up with primary care provider as scheduled. Hydrate well. Return to ER with worsening complaints. Patient Language: Kiswahili Prescriptions: No Action digoxin 125 mcg (0.125 mg) tablet quetiapine 25 mg tablet furosemide 40 mg tablet metoprolol tartrate 100 mg tablet 100 mg PO Q12H donepezil 10 mg tablet spironolactone 25 mg tablet tamsulosin 0.4 mg capsule PO Follow-up/Referrals: PHYSICIAN,CENTRIFUGAL CASTING MACHINE TENDER [Primary Care Provider] -
[2024-12-28 20:11] LABS: Add Urine Microscopic? YES; Appearance Urine Clear (Clear); Bilirubin Urine Negative (Negative); Blood Urine Negative (Negative); Color Urine Yellow (Yellow); Glucose Urine UA Negative (Negative); Ketones Urine Negative (Negative); Leukocyte Esterase Ur Negative LEU/UL (Negative); Nitrate Urine Negative (Negative); Protein Urine Negative (Negative); Specific Grav Ur 1.017 (1.001-1.035); pH Urine 7.5 (5.0-9.0)
[2024-12-28 20:53] LABS: Basophils Absolute Auto 0.1 K/mm3 (0.0-0.1); Basophils Percent Auto 0.6 % (0.2-1.2); Eosinophils Absolute Auto 0.3 K/mm3 (0-0.3); Eosinophils Percent Auto 3.2 % (0-4.4); Hematocrit 48.5 % (42.0-52.0); Hemoglobin 16.3 g/dL (14.0-18.0); Immature Granulocyte Absolute 0.04 K/mm3 (0.00-0.031); Immature Granulocyte Percent A 0.4 % (0-0.5); Lymphocytes Absolute Auto 2.26 K/mm3 (0.9-3.2); Lymphocytes Percent Auto 23.5 % (18.3-44.2); Mean Corpuscular HGB Conc 33.6 g/dl (32-36); Mean Corpuscular Hemoglobin 28.5 pg (26-34); Mean Corpuscular Volume 84.8 fl (80-100); Mean Platelet Volume 10.2 fl (7.4-10.4); Monocytes Absolute Auto 1.4 K/mm3 (0.1-0.6); Monocytes Percent Auto 14.1 % (2.6-8.5); Neutrophils Absolute Auto 5.6 K/mm3 (1.3-6.7); Neutrophils Percent Auto 58.2 % (45.5-73.1); Platelet Count Result 206 k/mm3 (150-375); Red Blood Count 5.72 M/mm3 (4.6-6.20); Red Cell Distribution Width 17.2 % (11.5-14.5); White Blood Count 9.6 K/mm3 (4.5-10.0)
[2024-12-28 21:03] LABS: Alanine Aminotransferase 24 U/L (6-50); Albumin Level 3.8 g/dL (3.5-5.1); Alkaline Phosphatase 40 U/L (38-126); Anion Gap 6 mmol/L (4-12); Aspartate Amino Transferase 35 U/L (17-59); Bilirubin,Total 1.4 mg/dL (0.2-1.3); Blood Urea Nitrogen 9 mg/dL (9-20); Calcium 8.9 mg/dL (8.4-10.2); Carbon Dioxide 32 mmol/L (22-30); Chloride 99 mmol/L (98-107); Estimated Glomerular Filt Rate > 60; Glucose 112 mg/dL (65-110); Potassium 3.5 mmol/L (3.4-5.0); Sodium 137 mmol/L (137-145); Total Protein 6.7 g/dL (6.3-8.2)
== END 2024-12-28 22:06 | disposition home or self-care (01) ==
PROVIDERS: Emergency Provider Registered Nurse Emergency
DX: R31.9 Hematuria, unspecified (principal); G30.9 Alzheimer's disease, unspecified; F02.80 Dementia in other diseases classified elsewhere, unspecified severity, without behavioral disturbance, psychotic disturbance, mood disturbance, and anxiety
CPT/HCPCS: 36415; 80053; 81001; 85025; 99283

== ENCOUNTER 2025-02-12 19:45 | Emergency (ER) | payer MEDICARE, SELFPAY ==
[2025-02-12] VITALS (24 sets, daily range): BP systolic 115–166; BP diastolic 71–79; PULSE 51–63; RESP 12–23; TEMP 36.6; O2SAT 94–100
--- NOTE | ~2025-02-12 | US_ITS ---
EXAMINATION: US venous doppler [facility] DATE: 02/12/2025 21:46 INDICATION: Lower extremity edema TECHNIQUE: Grayscale ultrasound images without and with compression and Doppler ultrasound images of the bilateral lower extremity veins were obtained. COMPARISON: None. FINDINGS: The visualized portions of right common femoral vein, profunda (deep) femoral vein, femoral vein, pop liteal vein, peroneal veins, posterior tibial veins, and greater saphenous vein outflow are patent. The visualized portions of left common femoral vein, profunda femoral vein, femoral vein, popliteal v ein, peroneal veins, posterior tibial veins, and greater saphenous vein outflow are patent. IMPRESSION: 1. No deep venous thrombosis. Reviewed, dictated and finalized at location A.
--- NOTE | ~2025-02-12 | CT_ITS ---
History: Fall PROCEDURE: CT cervical spine without intravenous contrast. COMPARISON: None TECHNIQUE: Multiple contiguous axial images of the cervical spine were performed without the administration of i ntravenous contrast. DLP: 618 mGy-cm FINDINGS: Preservation of the normal curvature of the cervical spine is identified, with moderate kyphosis. Degenerative disease is present, with osteophyte formation, disc space narrowing, endplate changes an d facet arthropathy. Vacuum phenomena is also noted. No acute fractures are present. Biapical scarring is noted. No soft tissue abnormality is appreciated The airway is patent. Impression: Significant degenerative disease, without acute fracture. Reviewed, dictated and finalized at location A. Impression: Significant degenerative disease, without acute fracture.
--- NOTE | ~2025-02-12 | XR_ITS ---
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 Within the medial left tibia, calcification of the medial collateral ligament is suspected. No periprosthetic fracture is appreciated. No suprapatellar joint effusion is identified. The infrapatellar joint space is clear. IMPRESSION: No periprosthetic fracture, as detailed above. Reviewed, dictated and finalized at location A.
--- NOTE | ~2025-02-12 | CT_ITS ---
History: Fall PROCEDURE: CT head without contrast. COMPARISON: 10/20/2024 TECHNIQUE: Axial imaging of the head performed from the skull base to the vertex without IV contrast. Sagittal a nd coronal reformations obtained. DLP: 681 mGy-cm FINDINGS: The ventricles are enlarged. The dilatation of the ventricles is proportional to the degree of sulcal prominence, not uncommon in the senescent brain. 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 There is no mass, mass effect or midline shift. There is no abnormal extra-axial fluid collection or intracranial hemorrhage. Mucoperiosteal thickening within the left maxillary sinus, an interval change from 10/20/2024. Remaining paranasal sinuses are clear. The mastoid air cells are well aerated. No acute displaced fractures within the overlying cranium. Impression: No acute intracranial hemorrhage or suspicious mass effect. Inflammatory sinus disease Reviewed, dictated and finalized at location A. Impression: No acute intracranial hemorrhage or suspicious mass effect. Inflammatory sinus disease
--- NOTE | ~2025-02-12 | XR_ITS ---
HISTORY: fall, abrasion COMPARISON: None TECHNIQUE: 3 views of the right knee were performed FINDINGS: No acute or subacute fracture. Medial and lateral tibiofemoral joint space narrowing is identified, with near complete obliteration of the medial tibiofemoral joint space. Osteophytic ridging is also noted. Moderate suprapatellar joint effusion is identified. The infrapatellar joint space is clear. Osteophyte formation along the superior margin of the right patella. IMPRESSION: Degenerative disease, without acute fracture. Reviewed, dictated and finalized at location A.
--- NOTE | ~2025-02-12 | XR_ITS ---
CHEST RADIOGRAPH CLINICAL HISTORY: Weakness . COMPARISON: 10/31/2024 TECHNIQUE: Single portable view of the chest. FINDINGS The cardiomediastinal silhouette is unremarkable. The lungs are clear. IMPRESSION: No focal infiltrate or effusion. Reviewed, dictated and finalized at location A.
--- NOTE | 2025-02-12 19:58 | ECG_ITS ---
Test Date: 2025-02-12 20:21:36 Measurements Intervals [place] Rate: 51 P: 20 MD: 212 QRS: -21 QRSD: 102 T: 56 QT: 459 QTc: 425 Interpretive Statements SINUS BRADYCARDIA WITH FIRST DEGREE AV BLOCK INCOMPLETE RIGHT BUNDLE BRANCH BLOCK CONSIDER ANTERIOR INFARCT, AGE INDETERMINATE BASELINE ARTIFACT- I, II, AVR, AVL, AVF, V2, V4-V6 ABNORMAL ECG Compared to ECG 11/02/2024 06:46:50 ATRIAL FIBRILLATION NO LONGER PRESENT Electronically Signed On 02-13-2025 06:14:02 CDT by Mars Acuña D.O.
[2025-02-12 20:07] LABS: Hematocrit 48.3 % (42.0-52.0); Hemoglobin 15.9 g/dL (14.0-18.0); Immature Granulocyte Percent A 0.4 % (0-0.5); Lymphocytes Absolute Auto 1.62 K/mm3 (0.9-3.2); Mean Corpuscular HGB Conc 32.9 g/dl (32-36); Mean Corpuscular Hemoglobin 29.7 pg (26-34); Mean Corpuscular Volume 90.1 fl (80-100); Nucleated Red Blood Cells Absolute Auto 0.000 K/mm3 (0.0-0.012); Nucleated Red Blood Cells Perc 0.0 % (0.0-0.2); Platelet Count Result 211 k/mm3 (150-375); Red Blood Count 5.36 M/mm3 (4.6-6.20); White Blood Count 7.7 K/mm3 (4.5-10.0)
[2025-02-12 20:21] LABS: Alanine Aminotransferase 19 U/L (6-50); Albumin Level 4.3 g/dL (3.5-5.1); Alkaline Phosphatase 49 U/L (38-126); Anion Gap 8 mmol/L (4-12); Aspartate Amino Transferase 30 U/L (17-59); Bilirubin,Total 1.3 mg/dL (0.2-1.3); Blood Urea Nitrogen 17 mg/dL (9-20); Calcium 9.2 mg/dL (8.4-10.2); Carbon Dioxide 31 mmol/L (22-30); Chloride 98 mmol/L (98-107); Estimated Glomerular Filt Rate 57; Glucose 109 mg/dL (65-110); Potassium 4.0 mmol/L (3.4-5.0); Sodium 137 mmol/L (137-145); Total Protein 7.4 g/dL (6.3-8.2)
--- NOTE | 2025-02-12 20:25 | ED_ITS ---
HPI - Extremity Problem General Chief complaint: Extremity Problem,Nontraumatic Stated complaint: BLE's WHEEPING, SWOLLEN, RED, WARM Time Seen by Provider: 02/12/25 19:49 Source: patient and family (son Adam and another family member via phone) Limitations: dementia History of Present Illness HPI Narrative: Patient presents with bilateral leg weeping, swollen, red, and warm by report, right greater than left. He tripped/stumbled today when his small dog got under foot and this caused him to fall. He has an abrasion on his right knee. In general he has been having bilateral knee issues. Denies taking any pain medicines. Saw primary care for physician Hernandez Shafer's DIRECT MARKETING INTERN on . He states he is peeing okay, pooping ok.Lives at home. History of cellulitis. Had an appointment to see a cardiology tech in the next week. Had been receiving in- home therapy and nursing, last session 3 weeks ago. Reports history of CHF. Denies any fevers or chills. Denies any shortness of breath. Patient's medications are reviewed and include the following: Furosemide, metoprolol, digoxin, memantidine, donepezil, Eliquis Related Data Home Medications ?Medication ?Instructions ?Recorded ?Confirmed ?Last Taken ?Type digoxin 125 mcg (0.125 mg) tablet 10/20/24 Unknown History donepezil 10 mg tablet mg 10/20/24 Unknown History furosemide 40 mg tablet mg 10/20/24 Unknown History metoprolol tartrate 100 mg tablet 100 mg PO Q12H 10/20/24 10/22/24 Unknown History quetiapine 25 mg tablet mg 10/20/24 Unknown History spironolactone 25 mg tablet mg 10/20/24 Unknown History tamsulosin 0.4 mg capsule mg PO 10/20/24 Unknown History Allergies Allergy/AdvReac Type Severity Reaction Status Date / Time morphine Allergy Unknown Verified 02/12/25 20:40 Penicillins Allergy Unknown Verified 02/12/25 20:40 pseudoephedrine (From Allergy Unknown Verified 02/12/25 20:40 Sudafed) ANITIHISTAMINE, NASAL Allergy Unknown Uncoded 02/12/25 20:40 DECONGESTANT PMFSH Past Medical History Medical History (Updated 02/12/25 @ 23:09 by Fatou Hernandez MD) HFrEF (heart failure with reduced ejection fraction) Chronic anticoagulation Left wrist pain Dementia of the Alzheimer's type Surgical History Surgical History History of left knee replacement Social History Social History Smoking status: Former smoker Tobacco type: cigarettes Second hand tobacco smoke exposure: No Additional smoking assessment comments: quit many years ago Alcohol intake: unknown Substance use: unknown Additional living arrangements comments: Home Spiritual care concerns: No Exam 2 Narrative: GENERAL: Well-appearing, well-nourished, and in no acute distress. HEAD: Normocephalic, atraumatic. EYES: Non injected, non icteric ENT: Nares clear, no rhinorrhea or epistaxis. Gross auditory acuity intact. NECK: Supple. No meningismus. CHEST: Speaking in full sentences. No respiratory distress. HEART: Bradycardic rate and rhythm. . ABDOMEN: Soft, nondistended. No rigidity or guarding. Not peritoneal EXTREMITIES: Bilateral lower extremity edema. Thickened edematous skin. Bilateral legs are erythematous. They are warm to the touch, slightly more so than thighs. There are weeping wounds/blisters. Well-healed surgical midline scar overlying left knee. Bottoms of feet are malodorous with very moist edematous skin/blisters SKIN: Warm, dry; abrasion overlying right knee NEURO: No focal deficits. Alert and oriented though not consistently getting health details correct. Following commands. PSYCH: Normal mood and affect. Course Vital Signs Vital signs: Vital Signs Temperature 97.9 F 02/12/25 19:54 Pulse Rate 52 L 02/12/25 19:54 Respiratory Rate 18 02/12/25 19:54 Blood Pressure 147/71 H 02/12/25 19:54 Pulse Oximetry 99 02/12/25 19:54 Oxygen Delivery Room Air 02/12/25 19:54 Temperature 97.9 F 02/12/25 19:54 Pulse Rate 52 L 02/12/25 19:54 Respiratory Rate 18 02/12/25 19:54 Blood Pressure 147/71 H 02/12/25 19:54 Pulse Oximetry 99 02/12/25 19:54 Oxygen Delivery Room Air 02/12/25 19:54 MDM - Extremity (Nontraumatic) MDM Narrative Medical decision making narrative: 80-year-old male presents with bilateral lower extremity is erythematous edematous and weeping. He fell today when he tripped over his dog. He is on anticoagulation by report. In the emergency department he is afebrile with vital signs notable for bradycardia and mild hypertension. Mildly elevated lactic acid. Creatinine technically within normal limits though represents an increase from baseline per review of EMR, suspect a small AZIZA. Will be judicious with fluid and administer 500cc. BNP mildly elevated but not to a degree to suggest acute heart failure especially based on the reference range of the assay for patient's age and appearance of chest x-ray. Patient is reassessed at approximately 10:45 p.m.. Discussed his workup thus far with him and his son. His son notes that he has upcoming appointments with multiple [facility] including his primary care physician, Urology, Infectious Disease, Cardiology, and physical therapy evaluation at [facility]. Although he notes that his father's strength has been declining, he does not necessarily believe that admission is the best answer given all of the current plans and appointments coming up. I do not disagree. We await urine to see if he has a urinary tract infection. Another 500 cc fluid ordered as is acetaminophen as the patient does talk about having pain in his right knee. Urinalysis without signs of infection. Patient had not received his 500cc fluids but was able to produce urine. Had discussed the Cr with son so aware of mild dehydration and AZIZA. We discussed that as we age in in particular in patients with dementia, there is a decrease in the thirst mechanism. Encouraged hydration. He verifies understanding. Differential Diagnosis Differential diagnosis: Likely cellulitis, superficial thrombophlebitis, lower extremity edema, deep vein thrombosis of lower extremity and other (Rhabdomyolysis, sequelae of heart failure; fracture/dislocation; C-spine fracture, intracranial hemorrhage) Lab Data Attestation: I reviewed the patient's lab results. Lab results narrative: CBC unremarkable except for mild abnormalities on the differential CRP, CPK, ESR normal 02/12/25 20:00 02/12/25 20:00 Labs: Lab Results 02/12/25 02/12/25 Range/Units 20:00 22:58 WBC 7.7 (4.5-10.0) K/mm3 RBC 5.36 (4.6-6.20) M/mm3 Hgb 15.9 (14.0-18.0) g/dL Hct 48.3 (42.0-52.0) % MCV 90.1 (80-100) fl MCH 29.7 (26-34) pg MCHC 32.9 (32-36) g/dl RDW 14.0 (11.5-14.5) % Plt Count 211 (150-375) k/mm3 MPV 10.1 (7.4-10.4) fl Immature Gran % (Auto) 0.4 (0-0.5) % Neut % (Auto) 63.2 (45.5-73.1) % Lymph % (Auto) 21.2 (18.3-44.2) % [place] % (Auto) 11.2 H (2.6-8.5) % Eos % (Auto) 3.3 (0-4.4) % Baso % (Auto) 0.7 (0.2-1.2) % Lymph # (Auto) 1.62 (0.9-3.2) K/mm3 [place] # (Auto) 0.9 H (0.1-0.6) K/mm3 Eos # (Auto) 0.3 (0-0.3) K/mm3 Baso # (Auto) 0.1 (0.0-0.1) K/mm3 Abs Immat Gran (auto) 0.03 (0.00-0.031) K/mm3 Absolute Neuts (auto) 4.8 (1.3-6.7) K/mm3 Absolute Nucleated RBC 0.000 (0.0-0.012) K/mm3 Nucleated RBC % 0.0 (0.0-0.2) % ESR 1 (0-20) mm/hr Sodium 137 (137-145) mmol/L Potassium 4.0 (3.4-5.0) mmol/L Chloride 98 (98-107) mmol/L Carbon Dioxide 31 H (22-30) mmol/L Anion Gap 8 (4-12) mmol/L BUN 17 (9-20) mg/dL Creatinine 1.22 (0.7-1.3) mg/dL Estim Creat Clear Calc Not Reportable Estimated GFR 57 L (59 - ) Glucose 109 (65-110) mg/dL Lactic Acid 2.1 H (0.7-2.0) mmol/L Calcium 9.2 (8.4-10.2) mg/dL Total Bilirubin 1.3 (0.2-1.3) mg/dL AST 30 (17-59) U/L ALT 19 (6-50) U/L Alkaline Phosphatase 49 (38-126) U/L Total Creatine Kinase 67 (55-170) U/L C-Reactive Protein 0.8 (<1.0) mg/dL NT-Pro-B Natriuret Pep 171 H (19.9-100) pg/mL Total Protein 7.4 (6.3-8.2) g/dL Albumin 4.3 (3.5-5.1) g/dL Urine Color Yellow (Yellow) Urine Appearance Clear (Clear) Urine pH 7.5 (5.0-9.0) Ur Specific [place] 1.019 (1.001-1.035) Urine Protein Negative (Negative) mg/dL Urine Glucose (UA) Negative (Negative) mg/dL Urine Ketones Negative (Negative) mg/dL Ur Blood (Man) Negative (Negative) Urine Nitrate Negative (Negative) Urine Bilirubin Negative (Negative) Urine Urobilinogen 1.0 (<2.0) mg/dL Leukocyte Esterase Rfl Negative (Negative) EM/UL Imaging Data Radiologist's impression: Impressions Chest X-Ray 02/12/25 21:01 IMPRESSION: No focal infiltrate or effusion. Knee X-Ray 02/12/25 21:03 IMPRESSION: No periprosthetic fracture, as detailed above. Knee X-Ray 02/12/25 21:09 IMPRESSION: Degenerative disease, without acute fracture. Head CT 02/12/25 21:46 Impression: No acute intracranial hemorrhage or suspicious mass effect. Inflammatory sinus disease Cervical Spine CT 02/12/25 22:14 Impression: Significant degenerative disease, without acute fracture. Venous Doppler Study 02/12/25 22:42 IMPRESSION: 1. No deep venous thrombosis. ECG Data EKG #1: Attestation EKG: I personally reviewed and interpreted this ECG as follows: ECG completion date: 02/12/25 ECG completion time: 20:21 Interpretation: Sinus bradycardia at a rate of 51 beats per minute. AR interval is prolonged at 212 milliseconds consistent with a first-degree AV block. This appears to be a left axis deviation as QRS is positive in 1, negative in 3 and AVF and trending towards negative in 2. Incomplete RBBB given QRS greater [id number]; RSR' M- shaped pattern in V1-V3; wide, slurred S wave in lateral leads (I, aVL, and to a lesser extent V5-6). Good R-wave progression across the precordial leads. No T-wave inversions. Discharge Plan Discharge Clinical Impression: Fall, Abrasion of knee, AZIZA (acute kidney injury), DDD (degenerative disc disease), cervical, Venous stasis of both lower extremities, Right knee DJD, Knee pain, Edema of both lower legs Patient Disposition: Home Condition: Stable Instructions: Antibiotic Form, Acute Kidney Injury (DC), Fall Prevention for Older Adults (ED), Stasis Dermatitis (DC), Abrasion (ED), Knee Pain (ED), Lymphedema (ED), Venous Insufficiency (DC) Additional Instructions: It is important you elevate your legs above the level of the heart when possible. Continue taking all of your medications as prescribed. Keep all of your upcoming appointments with your doctors/specialists including but not limited to primary care, urology, physical therapy, cardiology, etc. Return to the emergency department with any new or worsening symptoms. Acetaminophen/Tylenol (maximum 4000 mg per day) is safe to take for pain relief. You are to avoid taking NSAIDs such as ibuprofen/Motrin/naproxen/Advil/Aleve because you are on Eliquis. Patient Language: Tog[place]ese Prescriptions: New acetaminophen 500 mg capsule 1,000 mg PO Q6H PRN (Reason: pain) Qty: 30 0RF No Action digoxin 125 mcg (0.125 mg) tablet quetiapine 25 mg tablet furosemide 40 mg tablet metoprolol tartrate 100 mg tablet 100 mg PO Q12H donepezil 10 mg tablet spironolactone 25 mg tablet tamsulosin 0.4 mg capsule PO Follow-up/Referrals: PHYSICIAN,IMAGING SCHEDULER [Primary Care Provider] - Time of Disposition: 23:10
[2025-02-12 20:59] LABS: CRP 0.8 mg/dL (<1.0); Creatine Kinase 67 U/L (55-170)
[2025-02-12 21:04] LABS: NT Pro B Type Natriuretic Pept 171 pg/mL (19.9-100)
[2025-02-12] MEDS: SODIUM CHLORIDE 0.9% IV 500 ML 999 ML IV CONT (21:15)
--- OUTSIDE RECORDS SUMMARY | 2025-02-12 21:21 | XMS_ITS ---
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 This section includes the names of all active insurance providers for the patient. Insurance Provider Type of Coverage Plan Name Start of Policy Coverage End of Policy Coverage Group Number Member ID Insurance Provider's Telephone Number Policy Dickens's Name Patient's Relationship to Policy Dickens AETNA [facility] (WNR) MEDICARE ADVANTAGE [facility] (WNR) Jul 09, 2018 [id number] [place] [id number] SOO,PAKO IN PATIENT [employer] [facility] (WNR) MEDICARE ADVANTAGE [facility] (WNR) Jul 09, 2018 [id number] [place] [id number] SOO,PAKO IN PATIENT Selected Encounter This section includes the information on record at [place] for the Encounter. Date/Time Encounter Type Encounter Description Reason Pro vider Source Dec 08, 2024 08:33 AM Outpatient Encounter ADMIN PAT ACTIVTIES (MASNONCT) IHE Encounter Template Text not used by [place] Plan of Treatment: Future Appointments (+ 6 months) and Future Tests (+/- 45 days) The Plan of Treatment section includes future care activities for the [facility] This section includes future appointments and future orders which are active, pending or scheduled. Future Appointments This section includes appointments that were scheduled to occur 6 months from the date of the Encounter, up to a maximum of 20 appointments. The data comes from all [facility] facilities. Appointment Date/Time Appointment Type Appointme nt Facility Name Mar 24, 2025 10:00 AM AMBULATORY - MEDICINE [facility] Mar 24, 2025 10:01 AM AMBULATORY - MEDICINE [facility] Mar 24, 2025 11:00 AM AMBULATORY - NONE [facility] Active, Pending, and Scheduled Orders This section includes a listing of several types of active, pending, and scheduled orders, including clinic medications orders, diagnostic test orders, procedure orders and consult orders; where thestart date of the order is 45 days before the date of the Encounter or 45 days after the date of the Encounter. The data comes from all [facility]. Test Date/Time Test Type Test Details Facility Name Jan 13, 2025 01:17 PM Consult Order COMMUNITY CARE-UROLOGY [facility] Rn Endocrinology's [facility] Jan 13, 2025 03:16 PM Consult Order GERIATRIC CLINIC OUTPT [facility] Results: +/- 30 days of the encounter This section includes the Chemistry and Hematology Lab Results on record with [place] for the patient. Radiology Reports and Pathology Reports are provided separately, in subsequent sections. Lab Results This section contains the Chemistry/Hematology Results that were resulted 30 days before or 30 daysafter the date of the Encounter. Date/Time Source Result Type Result - Unit Interpretation Reference Range Specimen Type Comment November 11, 2024 06:48 AM [facility] MAGNESIUM PLASMA Specimen Type: PLASMA Comment: K result may show a positive bias due to hemolysis. Specimen slightly hemolyzed. Ordering Provider: CONNIE KOCH Report Released Date/Time: November 06, 2024 07:13 AM Reporting Lab: [facility] [address] [facility] [phone] Performing Lab: [facility] [address] [facility] [address] MAGNESIUM 1.9 mg/dL 1.6-2.6 November 11, 2024 06:48 AM [facility] RENAL PANEL PLASMA Specimen Type: PLASM A Comment: K result may show a positive bias due to hemolysis. Specimen slightly hemolyzed. Ordering Provider: CONNIE KOCH Report Released Date/Time: November 06, 2024 07:13 AM Reporting Lab: [address] [address] Performing Lab: [address] [address] CREATININE 0.89 mg/dL 0.7-1.3 UREA NITROGEN 16.9 mg/dL 9.0-25.0 GLUCOSE 99 mg/dL 72-99 SODIUM 136 meq/L 136-145 POTASSIUM 4.3 meq/L 3.5-5 CHLORIDE 104 meq/L 98-107 CARBON DIOXIDE 25 meq/L 22-31 CALCIUM 8.8 mg/dL 8.4-10.4 PHOSPHOROUS 3.6 mg/dL 2.3-4.7 ALBUMIN 3.5 g/dL 3.4-5 EGFR (CKD-EPI 2020) 86.1 >60 November 11, 2024 06:48 AM [facility] CBC BLOOD Specimen Type: BLOOD No comment entered. Ordering Provider: CONNIE KOCH Report Released Date/Time: November 06, 2024 07:13 AM Reporting Lab: [address] [address] Performing Lab: [address] [address] WBC 9.2 10*3/uL 3.6-11.2 RBC 5.85 10*6/uL H 4.10-5.70 HGB 16.7 g/dL 13.1-16.8 HCT 50.4 H 38.2-48.4 MCV 86.2 fL 80.0-100.0 MCH 28.5 pg 27.0-34.0 MCHC 33.1 g/dL 33.0-36.0 PLT 236 10*3/uL 150-400 MPV 10.8 fL 7.5-11.2 RDW 15.4 H 11.8-15.1 LYMPHOCYTES, AUTO % 17 MONOCYTES, AUTO % 10 NEUTROPHILS, AUTO % 65 EOSINOPHILS, AUTO % 7 BASOPHILS, AUTO % 1 LYMPHOCYTES, ABSOLUTE 1.56 10*3/uL 0.77- 4.50 MONOCYTES, ABSOLUTE 0.88 10*3/uL H 0.19-0. 80 NEUTROPHILS, ABSOLUTE 6.03 10*3/uL 2.10- 8.00 EOSINOPHILS, ABSOLUTE 0.63 10*3/uL H 0.00- 0.60 BASOPHILS, ABSOLUTE 0.09 10*3/uL 0.00-0. 20 November 10, 2024 06:51 AM [facility] MAGNESIUM PLASMA Specimen Type: PLASM A Comment: No hemolysis noted. Ordering Provider: CONNIE KOCH Report Released Date/Time: November 06, 2024 07:13 AM Reporting Lab: [address] [phone] Performing Lab: [address] [address] MAGNESIUM 2.1 mg/dL 1.6-2.6 November 10, 2024 06:51 AM [facility] RENAL PANEL PLASMA Specimen Type: PLASM A Comment: No hemolysis noted. Ordering Provider: CONNIE KOCH Report Released Date/Time: November 06, 2024 07:13 AM Reporting Lab: [address] [address] Performing Lab: [address] [address] CREATININE 0.86 mg/dL 0.7-1.3 UREA NITROGEN 18.8 mg/dL 9.0-25.0 GLUCOSE 100 mg/dL H 72-99 SODIUM 137 meq/L 136-145 POTASSIUM 4.2 meq/L 3.5-5 CHLORIDE 104 meq/L 98-107 CARBON DIOXIDE 26 meq/L 22-31 CALCIUM 9.2 mg/dL 8.4-10.4 PHOSPHOROUS 3.6 mg/dL 2.3-4.7 ALBUMIN 3.8 g/dL 3.4-5 EGFR (CKD-EPI 2020) 87.0 >60 November 10, 2024 06:51 AM [facility] CBC BLOOD Specimen Type: BLOOD No comment entered. Ordering Provider: CONNIE KOCH Report Released Date/Time: November 06, 2024 07:13 AM Reporting Lab: [facility] [address] [facility] [address] Performing Lab: [facility] [address] [place] [phone] WBC 9.0 10*3/uL 3.6-11.2 RBC 5.85 10*6/uL H 4.10-5.70 HGB 16.3 g/dL 13.1-16.8 HCT 51.2 H 38.2-48.4 MCV 87.5 fL 80.0-100.0 MCH 27.9 pg 27.0-34.0 MCHC 31.8 g/dL L 33.0-36.0 PLT 252 10*3/uL 150-400 MPV 10.2 fL 7.5-11.2 RDW 15.3 H 11.8-15.1 LYMPHOCYTES, AUTO % 20 MONOCYTES, AUTO % 9 NEUTROPHILS, AUTO % 62 EOSINOPHILS, AUTO % 7 BASOPHILS, AUTO % 1 LYMPHOCYTES, ABSOLUTE 1.78 10*3/uL 0.77- 4.50 MONOCYTES, ABSOLUTE 0.85 10*3/uL H 0.19-0. 80 NEUTROPHILS, ABSOLUTE 5.62 10*3/uL 2.10- 8.00 EOSINOPHILS, ABSOLUTE 0.65 10*3/uL H 0.00- 0.60 BASOPHILS, ABSOLUTE 0.08 10*3/uL 0.00-0. 20 November 09, 2024 08:22 AM [facility] MAGNESIUM PLASMA Specimen Type: PLASM A Comment: No hemolysis noted. Ordering Provider: CONNIE KOCH Report Released Date/Time: November 06, 2024 07:13 AM Reporting Lab: [facility] [address] [facility] [address] Performing Lab: [address] [address] MAGNESIUM 2.1 mg/dL 1.6-2.6 November 09, 2024 08:22 AM [facility] RENAL PANEL PLASMA Specimen Type: PLASM A Comment: No hemolysis noted. Ordering Provider: CONNIE KOCH Report Released Date/Time: November 06, 2024 07:13 AM Reporting Lab: [address] [address] Performing Lab: [address] [address] CREATININE 0.86 mg/dL 0.7-1.3 UREA NITROGEN 18.6 mg/dL 9.0-25.0 GLUCOSE 87 mg/dL 72-99 SODIUM 138 meq/L 136-145 POTASSIUM 4.5 meq/L 3.5-5 CHLORIDE 104 meq/L 98-107 CARBON DIOXIDE 27 meq/L 22-31 CALCIUM 9.0 mg/dL 8.4-10.4 PHOSPHOROUS 3.2 mg/dL 2.3-4.7 ALBUMIN 3.5 g/dL 3.4-5 EGFR (CKD-EPI 2020) 87.0 >60 November 09, 2024 08:22 AM [facility] CBC BLOOD Specimen Type: BLOOD Comment: prev diff 11/07/24. Ordering Provider: CONNIE KOCH Report Released Date/Time: November 06, 2024 07:13 AM Reporting Lab: [address] [address] Performing Lab: [address] [address] WBC 10.7 10*3/uL 3.6-11.2 RBC 5.84 10*6/uL H 4.10-5.70 HGB 16.6 g/dL 13.1-16.8 HCT 50.9 H 38.2-48.4 MCV 87.2 fL 80.0-100.0 MCH 28.4 pg 27.0-34.0 MCHC 32.6 g/dL L 33.0-36.0 PLT 260 10*3/uL 150-400 MPV 10.6 fL 7.5-11.2 RDW 15.2 H 11.8-15.1 LYMPHOCYTES, AUTO % 16 MONOCYTES, AUTO % 11 NEUTROPHILS, AUTO % 67 EOSINOPHILS, AUTO % 5 BASOPHILS, AUTO % 1 LYMPHOCYTES, ABSOLUTE 1.65 10*3/uL 0.77- 4.50 MONOCYTES, ABSOLUTE 1.14 10*3/uL H 0.19-0. 80 NEUTROPHILS, ABSOLUTE 7.16 10*3/uL 2.10- 8.00 EOSINOPHILS, ABSOLUTE 0.58 10*3/uL 0.00- 0.60 BASOPHILS, ABSOLUTE 0.08 10*3/uL 0.00-0. 20 Social History: Smoking Status (Most current) and Tobacco Use (All prior to encounter date) This section includes the most current, and the historical, smoking and tobacco- related health factors from the [place] facility where the Encounter took place. Current Smoking Status This section includes the most current smoking, or tobacco-related health factor, from the [place] facility where the Encounter took place. Date/Time Current Smoking Status Comment Nuzhat bennett Oct 17, 2022 02:55 PM [facility] ADMIT TOBACCO SCREEN REFUSED [facility] Advance Directives: All historical and current Section Date Range: From patient's date of to the date document was created. This section includes ALL of a patient's completed or amended [place] Advance and Rescinded Directives. The entries below indicate that a directive exists for the patient, but an actual copy is not included with this document. The data comes from all [place] facilities. Date Advance Directives Provider Source Nov 03, 2022 ADVANCE DIRECTIVE DISCUSSION GIACOMO RAMIREZ [facility] Oct 30, 2022 ADVANCE DIRECTIVE ALEKSANDAR GRANADO [facility] Encounter Notes: All associated encounter notes This section contains the clinical notes associated to the Encounter. Date/Time Encounter Note(s) Provider Source Dec 08, 2024 08:33 AM PHARMACY OUTPATIEN T MEDICATION MGT NOTE: LOCAL TITLE: PHARMACY MEDICATION PATIENT EDUCATION [facility] STANDARD TITLE: PHARMACY OUTPATIENT MEDICATION MGT NOTE DATE OF NOTE: DEC 08, 2024@08:33 ENTRY DATE: DEC 08, 2024@08:33:58 AUTHOR: RACHEL BUTT COSIGNER: URGENCY: STATUS: COMPLETED ALEXEI VANN [address] [place], [place] [address] Patient info correct: YES ALLERIES/ADR: SUDAFED, PENICILLIN, ANTIHISTAMINE NASAL DECONGEST, DARVOCET-N Patient info correct: YES ACTIVE OUTPATIENT MEDS REVIEWED: YES Active Outpatient Medications (including Supplies): Active Outpatient Medications Status 1) APIXABAN 5MG TAB TAKE ONE TABLET BY MOUTH TWICE A DAY ACTIVE (S) Indication: FOR ANTICOAGULATION 2) DONEPEZIL HCL 10MG TAB TAKE ONE-HALF TABLET BY MOUTH AT ACTIVE (S) BEDTIME (JUST BEFORE BEDTIME) Indication: FOR ALZHEIMER DISEASE 3) MELATONIN 1MG CAP/TAB TAKE ONE CAP/TAB BY MOUTH AT BEDTIME ACTIVE NEEDED Indication: FOR SLEEP 4) MEMANTINE HCL 5MG TAB TAKE ONE TABLET BY MOUTH ONCE A DAY ACTIVE Indication: FOR ALZHEIMER DISEASE 5) METOPROLOL SUCCINATE 200MG SA TAB TAKE ONE-HALF TABLET BY ACTIVE (S) MOUTH TWICE A DAY SWALLOW WHOLE, DO NOT CRUSH OR CHEW (TABLETS MAY BE CUT IN HALF). 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 Can you please renew? Thank you /rody/ RACHEL BUTT Pharm D Signed: 12/08/2024 08:35 RACHEL BUTT [facility]
--- OUTSIDE RECORDS SUMMARY | 2025-02-12 21:22 | XMS_ITS ---
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 Date/Time Encounter Type Encounter Description Reason Provider Source November 13, 2024 08:43 AM NQHP OL DIG ASSMT&MGMT 11-20 CLINICAL PHARMACY ICD-10-CM Z51.81 Encounter for therapeutic drug level monitoring PAMLISS Singh I[facility] Encounter Template Text not used by [place] Assessments - Encounter Diagnoses This section includes the primary and secondary diagnoses documented for the Encounter. 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 This section includes future appointments and future orders which are active, pending or scheduled. Future Appointments This section includes appointments that were scheduled to occur 6 months from the date of the Encounter, up to a maximum of 20 appointments. The data comes from all [place] treatment facilities. Appointment Date/Time Appointment Type Appointme nt Facility Name November 16, 2024 08:00 AM AMBULATORY - NONE [facility] December 01, 2024 10:00 AM AMBULATORY - [facility] December 03, 2024 10:00 AM AMBULATORY [facility] December 05, 2024 11:45 AM AMBULATORY - SURGERY [facility] Mar 24, 2025 10:00 AM AMBULATORY - MEDICINE [facility] Mar 24, 2025 10:01 AM AMBULATORY - MEDICINE [facility] Mar 24, 2025 11:00 AM AMBULATORY - NONE [facility] Lab Results: +/- 30 days of the encounter This section includes the Chemistry and Hematology Lab Results on record with [place] for the patient. Radiology Reports and Pathology Reports are provided separately, in subsequent sections. Lab Results This section contains the Chemistry/Hematology Results that were resulted 30 days before or 30 daysafter the date of the Encounter. Date/Time Source Result Type Result - Unit Interpretation Reference Range Specimen Type Comment November 11, 2024 06:48 AM [facility] MAGNESIUM PLASMA Specimen Type: PLASMA Comment: K result may show a positive bias due to hemolysis. Specimen slightly hemolyzed. Ordering Provider: CONNIE KOCH Report Released Date/Time: November 06, 2024 07:13 AM Reporting Lab: [facility] [address] [place] [phone] Performing Lab: [address] [address] MAGNESIUM 1.9 mg/dL 1.6-2.6 November 11, 2024 06:48 AM [facility] RENAL PANEL PLASMA Specimen Type: PLASM A Comment: K result may show a positive bias due to hemolysis. Specimen slightly hemolyzed. Ordering Provider: CONNIE KOCH Report Released Date/Time: November 06, 2024 07:13 AM Reporting Lab: [address] [address] Performing Lab: [address] [address] CREATININE 0.89 mg/dL 0.7-1.3 UREA NITROGEN 16.9 mg/dL 9.0-25.0 GLUCOSE 99 mg/dL 72-99 SODIUM 136 meq/L 136-145 POTASSIUM 4.3 meq/L 3.5-5 CHLORIDE 104 meq/L 98-107 CARBON DIOXIDE 25 meq/L 22-31 CALCIUM 8.8 mg/dL 8.4-10.4 PHOSPHOROUS 3.6 mg/dL 2.3-4.7 ALBUMIN 3.5 g/dL 3.4-5 EGFR (CKD-EPI 2020) 86.1 >60 November 11, 2024 06:48 AM [facility] CBC BLOOD Specimen Type: BLOOD No comment entered. Ordering Provider: CONNIE KOCH Report Released Date/Time: November 06, 2024 07:13 AM Reporting Lab: [address] [address] Performing Lab: [address] [address] WBC 9.2 10*3/uL 3.6-11.2 RBC 5.85 10*6/uL [...] 20 November 10, 2024 06:51 AM [facility] MAGNESIUM PLASMA Specimen Type: PLASM A Comment: No hemolysis noted. Ordering Provider: CONNIE KOCH Report Released Date/Time: November 06, 2024 07:13 AM Reporting Lab: [address] [address] Performing Lab: [address] [address] MAGNESIUM 2.1 mg/dL 1.6-2.6 November 10, 2024 06:51 AM [facility] RENAL PANEL PLASMA Specimen Type: PLASM A Comment: No hemolysis noted. Ordering Provider: CONNIE KOCH Report Released Date/Time: November 06, 2024 07:13 AM Reporting Lab: [address] [address] Performing Lab: [address] [address] CREATININE 0.86 mg/dL 0.7-1.3 UREA NITROGEN 18.8 mg/dL 9.0-25.0 GLUCOSE 100 mg/dL H 72-99 SODIUM 137 meq/L 136-145 POTASSIUM 4.2 meq/L 3.5-5 CHLORIDE 104 meq/L 98-107 CARBON DIOXIDE 26 meq/L 22-31 CALCIUM 9.2 mg/dL 8.4-10.4 PHOSPHOROUS 3.6 mg/dL 2.3-4.7 ALBUMIN 3.8 g/dL 3.4-5 EGFR (CKD-EPI 2020) 87.0 >60 November 10, 2024 06:51 AM [facility] CBC BLOOD Specimen Type: BLOOD No comment entered. Ordering Provider: CONNIE KOCH Report Released Date/Time: November 06, 2024 07:13 AM Reporting Lab: [facility] [address] [facility] [address] Performing Lab: [address] [address] WBC 9.0 10*3/uL 3.6-11.2 RBC 5.85 10*6/uL [...] 20 November 09, 2024 08:22 AM [facility] MAGNESIUM PLASMA Specimen Type: PLASM A Comment: No hemolysis noted. Ordering Provider: CONNIE KOCH Report Released Date/Time: November 06, 2024 07:13 AM Reporting Lab: [facility] [address] [facility] [address] Performing Lab: [facility] [address] [place] [address] MAGNESIUM 2.1 mg/dL 1.6-2.6 November 09, 2024 08:22 AM [facility] RENAL PANEL PLASMA Specimen Type: PLASM A Comment: No hemolysis noted. Ordering Provider: CONNIE KOCH Report Released Date/Time: November 06, 2024 07:13 AM Reporting Lab: [address] [address] Performing Lab: [address] [address] CREATININE 0.86 mg/dL 0.7-1.3 UREA NITROGEN 18.6 mg/dL 9.0-25.0 GLUCOSE 87 mg/dL 72-99 SODIUM 138 meq/L 136-145 POTASSIUM 4.5 meq/L 3.5-5 CHLORIDE 104 meq/L 98-107 CARBON DIOXIDE 27 meq/L 22-31 CALCIUM 9.0 mg/dL 8.4-10.4 PHOSPHOROUS 3.2 mg/dL 2.3-4.7 ALBUMIN 3.5 g/dL 3.4-5 EGFR (CKD-EPI 2020) 87.0 >60 November 09, 2024 08:22 AM [facility] CBC BLOOD Specimen Type: BLOOD Comment: prev diff 11/07/24. Ordering Provider: CONNIE KOCH Report Released Date/Time: November 06, 2024 07:13 AM Reporting Lab: [address] [address] Performing Lab: [address] [address] WBC 10.7 10*3/uL 3.6-11.2 RBC 5.84 10*6/uL [...] BASOPHILS, ABSOLUTE 0.08 10*3/uL 0.00-0. 20 November 08, 2024 09:04 AM [facility] MAGNESIUM PLASMA Specimen Type: PLASM A Comment: No hemolysis noted. Ordering Provider: CONNIE KOCH Report Released Date/Time: November 06, 2024 07:13 AM Reporting Lab: [address] [address] Performing Lab: [address] [address] MAGNESIUM 1.9 mg/dL 1.6-2.6 November 08, 2024 09:04 AM [facility] RENAL PANEL PLASMA Specimen Type: PLASM A Comment: No hemolysis noted. Ordering Provider: CONNIE KOCH Report Released Date/Time: November 06, 2024 07:13 AM Reporting Lab: [address] [address] Performing Lab: [address] [address] CREATININE 0.86 mg/dL 0.7-1.3 UREA NITROGEN 17.8 mg/dL 9.0-25.0 GLUCOSE 141 mg/dL H 72-99 SODIUM 137 meq/L 136-145 POTASSIUM 4.4 meq/L 3.5-5 CHLORIDE 103 meq/L 98-107 CARBON DIOXIDE 26 meq/L 22-31 CALCIUM 8.9 mg/dL 8.4-10.4 PHOSPHOROUS 3.2 mg/dL 2.3-4.7 ALBUMIN 3.6 g/dL 3.4-5 EGFR (CKD-EPI 2020) 87.0 >60 November 08, 2024 09:04 AM [facility] CBC BLOOD Specimen Type: BLOOD No comment entered. Ordering Provider: CONNIE KOCH Report Released Date/Time: November 06, 2024 07:13 AM Reporting Lab: [facility] [address] [facility] [address] Performing Lab: [facility] [address] [place] [phone] WBC 10.1 10*3/uL 3.6-11.2 RBC 5.77 10*6/uL H 4.10-5.70 HGB 16.3 g/dL 13.1-16.8 HCT 50.1 H 38.2-48.4 MCV 86.8 fL 80.0-100.0 MCH 28.2 pg 27.0-34.0 MCHC 32.5 g/dL L 33.0-36.0 PLT 284 10*3/uL 150-400 MPV 10.3 fL 7.5-11.2 RDW 15.2 H 11.8-15.1 LYMPHOCYTES, AUTO % 18 MONOCYTES, AUTO % 9 NEUTROPHILS, AUTO % 66 EOSINOPHILS, AUTO % 6 BASOPHILS, AUTO % 1 LYMPHOCYTES, ABSOLUTE 1.82 10*3/uL 0.77- 4.50 MONOCYTES, ABSOLUTE 0.85 10*3/uL H 0.19-0. 80 NEUTROPHILS, ABSOLUTE 6.67 10*3/uL 2.10- 8.00 EOSINOPHILS, ABSOLUTE 0.56 10*3/uL 0.00- 0.60 BASOPHILS, ABSOLUTE 0.09 10*3/uL 0.00-0. 20 November 07, 2024 06:52 AM [facility] MAGNESIUM PLASMA Specimen Type: PLASM A Comment: No hemolysis noted. Ordering Provider: CONNIE KOCH Report Released Date/Time: November 06, 2024 07:13 AM Reporting Lab: [facility] [address] [facility] [address] Performing Lab: [address] [address] MAGNESIUM 2.0 mg/dL 1.6-2.6 November 07, 2024 06:52 AM [facility] RENAL PANEL PLASMA Specimen Type: PLASM A Comment: No hemolysis noted. Ordering Provider: CONNIE KOCH Report Released Date/Time: November 06, 2024 07:13 AM Reporting Lab: [address] [address] Performing Lab: [address] [address] CREATININE 1.00 mg/dL 0.7-1.3 UREA NITROGEN 19.3 mg/dL 9.0-25.0 GLUCOSE 123 mg/dL H 72-99 SODIUM 138 meq/L 136-145 POTASSIUM 4.7 meq/L 3.5-5 CHLORIDE 102 meq/L 98-107 CARBON DIOXIDE 27 meq/L 22-31 CALCIUM 8.9 mg/dL 8.4-10.4 PHOSPHOROUS 4.1 mg/dL 2.3-4.7 ALBUMIN 3.8 g/dL 3.4-5 EGFR (CKD-EPI 2020) 75.6 >60 November 07, 2024 06:52 AM [facility] CBC BLOOD Specimen Type: BLOOD No comment entered. Ordering Provider: CONNIE KOCH Report Released Date/Time: November 06, 2024 07:13 AM Reporting Lab: [address] [address] Performing Lab: [address] [address] WBC 12.6 10*3/uL H 3.6-11.2 RBC 5.50 10*6/uL 4.10-5.70 HGB 15.7 g/dL 13.1-16.8 HCT 48.0 38.2-48.4 MCV 87.3 fL 80.0-100.0 MCH 28.5 pg 27.0-34.0 MCHC 32.7 g/dL L 33.0-36.0 PLT 311 10*3/uL 150-400 MPV 10.1 fL 7.5-11.2 RDW 15.3 H 11.8-15.1 NEUTROPHILS 76.3 MONOCYTES 7.0 EOSINOPHILS 3.5 BASOPHILS 1.8 PAPPENHEIMER BODIES 0 LYMPHOCYTES 7.9 ATYPICAL LYMPHOCYTES 3.5 PLT EST-CV ADEQUATE ADEQUATE NORMRBC Yes BASO#-MDIFF 0.23 10*3/uL H 0.01-0.20 EO#-MDIFF 0.44 10*3/uL 0.00-0.60 MONO#-MDIFF 0.88 10*3/uL H 0.19-0.80 LYMPH#-MDIFF 1.44 10*3/uL 0.77-4.50 NEUT#-MDIFF 9.61 10*3/uL H 2.10-8.00 November 07, 2024 06:35 AM [facility] DIGOXIN PLASMA Specimen Type: PLASM A No comment entered. Ordering Provider: CONNIE KOCH Report Released Date/Time: November 07, 2024 08:41 AM Reporting Lab: [address] [address] Performing Lab: [address] [address] DIGOXIN <0.15 ng/mL L 0.8-2 November 06, 2024 07:05 AM [facility] MAGNESIUM PLASMA Specimen Type: PLASM A Comment: No hemolysis noted. Ordering Provider: MICH RAMIREZ Report Released Date/Time: Nov 05, 2024 11:04 PM Reporting Lab: [address] [address] Performing Lab: [address] [address] MAGNESIUM 1.9 mg/dL 1.6-2.6 November 06, 2024 07:05 AM [facility] RENAL PANEL PLASMA Specimen Type: PLASM A Comment: No hemolysis noted. Ordering Provider: MICH RAMIREZ Report Released Date/Time: Nov 05, 2024 11:04 PM Reporting Lab: [address] [address] Performing Lab: [address] [address] CREATININE 0.88 mg/dL 0.7-1.3 UREA NITROGEN 18.0 mg/dL 9.0-25.0 GLUCOSE 101 mg/dL H 72-99 SODIUM 136 meq/L 136-145 POTASSIUM 4.1 meq/L 3.5-5 CHLORIDE 99 meq/L 98-107 CARBON DIOXIDE 30 meq/L 22-31 CALCIUM 8.8 mg/dL 8.4-10.4 PHOSPHOROUS 4.1 mg/dL 2.3-4.7 ALBUMIN 3.1 g/dL L 3.4-5 EGFR (CKD-EPI 2020) 86.4 >60 November 06, 2024 07:05 AM [facility] CBC BLOOD Specimen Type: BLOOD No comment entered. Ordering Provider: MICH RAMIREZ Report Released Date/Time: Nov 05, 2024 11:04 PM Reporting Lab: [address] [address] Performing Lab: [address] [address] WBC 10.3 10*3/uL 3.6-11.2 RBC 5.27 10*6/uL 4.10-5.70 HGB 14.7 g/dL 13.1-16.8 HCT 45.6 38.2-48.4 MCV 86.5 fL 80.0-100.0 MCH 27.9 pg 27.0-34.0 MCHC 32.2 g/dL L 33.0-36.0 PLT 295 10*3/uL 150-400 MPV 9.9 fL 7.5-11.2 RDW 15.1 11.8-15.1 LYMPHOCYTES, AUTO % 20 MONOCYTES, AUTO % 10 NEUTROPHILS, AUTO % 64 EOSINOPHILS, AUTO % 5 BASOPHILS, AUTO % 1 LYMPHOCYTES, ABSOLUTE 2.07 10*3/uL 0.77- 4.50 MONOCYTES, ABSOLUTE 1.00 10*3/uL H 0.19-0. 80 NEUTROPHILS, ABSOLUTE 6.66 10*3/uL 2.10- 8.00 EOSINOPHILS, ABSOLUTE 0.47 10*3/uL 0.00- 0.60 BASOPHILS, ABSOLUTE 0.07 10*3/uL 0.00-0. 20 November 06, 2024 03:00 AM [facility] MRSA SURVL NARES DNA NARES Specimen Type: BIA ES Comment: Qualitative real-time PCR test for the rapid detection of methicillin-resistant Staphylococcus aureus (MRSA) DNA from nasal swabs. A negative result does not preclude infection with the agent(s) tested and should not be used as the sole basis for treatment or other patient management decisions. A positive test does not necessarily indicate the presence of viable organisms, following bacterial culture to recover the organism for further characterization and susceptibility testing. All results must be combined with clinical observations, patient history, and epidemiological information for final interpretation. Ordering Provider: IRON TAFOYA Report Released Date/Time: Nov 05, 2024 06:43 PM Reporting Lab: [facility] [address] [facility] [address] Performing Lab: [address] [address] MRSA SURVL NARES DNA Negative Negative Nov 05, 2024 08:34 PM [facility] MAGNESIUM PLASMA Specimen Type: PLASM A Comment: No hemolysis noted. Ordering Provider: IRON TAFOYA Report Released Date/Time: Nov 05, 2024 06:43 PM Reporting Lab: [facility] [address] [facility] [address] Performing Lab: [facility] [address] [place] [phone] MAGNESIUM 1.9 mg/dL 1.6-2.6 Nov 05, 2024 08:34 PM [facility] COMPREHENSIVE METABOLIC PANEL PLASMA Specimen Type: PLASMA Comment: No hemolysis noted. Ordering Provider: IRON TAFOYA Report Released Date/Time: Nov 05, 2024 06:43 PM Reporting Lab: [facility] [address] [facility] [address] Performing Lab: [facility] [address] [facility] [address] CREATININE 1.02 mg/dL 0.7-1.3 UREA NITROGEN 19.8 mg/dL 9.0-25.0 GLUCOSE 148 mg/dL H 72-99 SODIUM 136 meq/L 136-145 POTASSIUM 5.3 meq/L H 3.5-5 CHLORIDE 97 meq/L L 98-107 CARBON DIOXIDE 30 meq/L 22-31 CALCIUM 9.5 mg/dL 8.4-10.4 PROTEIN 6.4 g/dL 6-8.6 ALBUMIN 3.6 g/dL 3.4-5 TOTAL BILIRUBIN 0.5 mg/dL 0.2-1.2 ALKALINE PHOSPHATASE 72 U/L 40-150 AST/SGOT 30 U/L 5-34 ALT/SGPT 23 U/L 8-40 EGFR (CKD-EPI 2020) 73.8 >60 Nov 05, 2024 08:34 PM [facility] PHOSPHOROUS PLASMA Specimen Type: PLASM A Comment: No hemolysis noted. Ordering Provider: IRON TAFOYA Report Released Date/Time: Nov 05, 2024 06:43 PM Reporting Lab: [address] [address] Performing Lab: [address] [address] PHOSPHOROUS 3.7 mg/dL 2.3-4.7 Nov 05, 2024 08:34 PM [facility] CBC BLOOD Specimen Type: BLOOD No comment entered. Ordering Provider: IRON TAFOYA Report Released Date/Time: Nov 05, 2024 06:43 PM Reporting Lab: [address] [address] Performing Lab: [address] [address] WBC 11.1 10*3/uL 3.6-11.2 RBC 5.73 10*6/uL H 4.10-5.70 HGB 16.2 g/dL 13.1-16.8 HCT 50.2 H 38.2-48.4 MCV 87.6 fL 80.0-100.0 MCH 28.3 pg 27.0-34.0 MCHC 32.3 g/dL L 33.0-36.0 PLT 336 10*3/uL 150-400 MPV 9.9 fL 7.5-11.2 RDW 15.1 11.8-15.1 LYMPHOCYTES, AUTO % 17 MONOCYTES, AUTO % 8 NEUTROPHILS, AUTO % 69 EOSINOPHILS, AUTO % 5 BASOPHILS, AUTO % 1 LYMPHOCYTES, ABSOLUTE 1.92 10*3/uL 0.77- 4.50 MONOCYTES, ABSOLUTE 0.91 10*3/uL H 0.19-0. 80 NEUTROPHILS, ABSOLUTE 7.58 10*3/uL 2.10- 8.00 EOSINOPHILS, ABSOLUTE 0.50 10*3/uL 0.00- 0.60 BASOPHILS, ABSOLUTE 0.07 10*3/uL 0.00-0. 20 Social History: Smoking Status (Most current) and Tobacco Use (All prior to encounter date) This section includes the most current, and the historical, smoking and tobacco- related health factors from the [place] facility where the Encounter took place. Current Smoking Status This section includes the most current smoking, or tobacco-related health factor, from the [place] facility where the Encounter took place. Date/Time Current Smoking Status Comment Facil donald Oct 17, 2022 02:55 PM ORYX ADMIT TOBACCO SCREEN REFUSED [facility] Advance Directives: All historical and current Section Date Range: From patient's date of to the date document was created. This section includes ALL of a patient's completed or amended [place] Advance and Rescinded Directives. The entries below indicate that a directive exists for the patient, but an actual copy is not included with this document. The data comes from all [place] facilities. Date Advance Directives Provider Source Nov 03, 2022 ADVANCE DIRECTIVE DISCUSSION GIACOMO RAMIREZ [facility] Oct 30, 2022 ADVANCE DIRECTIVE ALEKSANDAR GRANADO [facility] Encounter Notes: All associated encounter notes This section contains the clinical notes associated to the Encounter. Date/Time Encounter Note(s) Provider Source November 13, 2024 08:43 AM PHARMACY COUNSELIN G DISCHARGE NOTE: LOCAL TITLE: ANTICOAGULATION DISCHARGE NOTE STANDARD TITLE: PHARMACY COUNSELING DISCHARGE NOTE DATE OF NOTE: NOVEMBER 13, 2024@08:43 ENTRY DATE: NOVEMBER 13, 2024@08:43:39 AUTHOR: LISS OROZCO EXP COSIGNER: URGENCY: STATUS: COMPLETED Delayed Entry INPATIENT ANTICOAGULATION MONITORING NOTE ALEXEI VANN JR is a 79 y/o evaluated today for anticoagulation monitoring. Subjective: Pt w/ PMH significant for HFrEF, afib, emphysema, concern for dementia admitted for encephalopathy/UTI; currently improved and to be discharged. Team discussed with , and per discussion to start anticoagulation. Per non VA noted, vet initially refused anticoagulation therapy. On discussion today, vet was willing to start - defer decisional status to medicine team - per psych, determined vet to be decisional. The purpose of this note is for inpatient anticoagulation monitoring. Indication for anticoagulation: atrial fibrillation Anticoagulant agent: apixaban Anticoagulant start date:11/13/2024 Anticipated anticoagulation duration: lifelong [id number] score = Age>75 HFrEF (3) HASBLED score = age, predisposition to bleeding 2/2 falls (2) Active Inpatient Medications: No medications found. Active Outpatient Medications: (for new admissions and discharge notes) Active and Recently Outpatient Medications (excluding Supplies): Active Outpatient Medications Status 1) APIXABAN 5MG TAB TAKE ONE TABLET BY MOUTH TWICE A DAY ACTIVE Indication: FOR ANTICOAGULATION 2) DONEPEZIL HCL 10MG TAB TAKE ONE-HALF TABLET BY MOUTH AT ACTIVE BEDTIME (JUST BEFORE BEDTIME) Indication: FOR ALZHEIMER DISEASE 3) MELATONIN 1MG CAP/TAB TAKE ONE CAP/TAB BY MOUTH AT BEDTIME ACTIVE NEEDED Indication: FOR SLEEP 4) MEMANTINE HCL 5MG TAB TAKE ONE TABLET BY MOUTH ONCE A DAY ACTIVE Indication: FOR ALZHEIMER DISEASE 5) METOPROLOL SUCCINATE 200MG SA TAB TAKE ONE-HALF TABLET BY ACTIVE MOUTH TWICE A DAY SWALLOW WHOLE, DO NOT CRUSH OR CHEW (TABLETS MAY BE CUT IN HALF). Indication: FOR HEART FAILURE 6) QUETIAPINE FUMARATE 100MG TAB TAKE ONE-HALF TABLET BY MOUTH ACTIVE TWICE A DAY Indication: FOR AGITATION 7) SACUBITRIL 24MG/VALSARTAN 26MG TAB TAKE 1 TABLET BY MOUTH ACTIVE TWICE A DAY Indication: FOR HEART FAILURE 8) SENNOSIDES 8.6MG TAB TAKE TWO TABLETS BY MOUTH ONCE A DAY ACTIVE Indication: FOR CONSTIPATION 9) TAMSULOSIN HCL 0.4MG CAP TAKE ONE CAPSULE BY MOUTH EVERY ACTIVE EVENING APPROXIMATELY 30 MINUTES AFTER THE SAME MEAL EACH DAY Indication: FOR BENIGN PROSTATIC HYPERPLASIA Pertinent labs: HGB 16.7 g/dL 11/11/2024 06:00 HCT 50.4 H % 11/11/2024 06:00 PLT 236 10*3/uL 11/11/2024 06:00 CREATININE 0.89 mg/dL 11/11/2024 06:00 EGFR (CKD-EPI 2020) 86.1 11/11/2024 06:00 AST/SGOT 30 U/L 11/05/2024 20:34 ALT/SGPT 23 U/L 11/05/2024 20:34 CrCl: 67.2 ml/min Weight: 209 lb [94.80 kg] (11/12/2024 07:27) A/P: Anticoagulation - Pt is on apixaban 5 mg BID; dose appropriate for age, weight and renal function - Continue apixaban 5 mg BID at this time on discharge - Patient discussed with team indication and anticoagulation; vet was amenable to therapy per team discussion Monitoring: - H/H is WNL - Plts are WNL - LFTs are okay for use - Monitor for s/sx of bleeding and thrombosis daily Bridging: - N/A Significant drug interactions: - N/A Outpatient follow-up: - Anticoagulation clinic consult has been entered Is discharge anticipated? Yes Does patient have adequate anticoagulation supply at home? New start Anticoagulation education provided: Unable to educate prior to discharge as vet left before - Will call vet and send education pamphlet with the following information Education - Purpose of DOAC and how/when to take medication - Tablet/capsule identification and storage - Importance of medication adherence and management of missed doses - Signs/symptoms of bleeding and TE - Drug interactions (e.g. NSAIDS, ASA), required labs and follow-up - Risks associated with falling - Notifying PCP and anticoagulation clinic about any scheduled procedures/surgeries - Given DOAC handout with contact information Inpatient team alerted of above recommendations and plan. Pharmacy will continue to monitor inpatient anticoagulation unless otherwise instructed by team. = Time spent: 15 minutes Will alert anticoagulation provider for awareness purposes only PBM PharmD Pharmacotherapy Rem V12: PHARMACIST INTERVENTIONS: ANTICOAGULATION THERAPY DIRECT ORAL ANTICOAGULANT (DOAC) MANAGEMENT Medication monitoring, no dosage change required, continue to monitor and assess /es/ LISS OROZCO PHARMD, BCPS CLINICAL PRECIPITATION EQUIPMENT TENDER Signed: 11/13/2024 12:18 LISS OROZCO [facility]
--- OUTSIDE RECORDS SUMMARY | 2025-02-12 21:22 | XMS_ITS | Encounter Summary ---
Author Name [facility] [place] Address [address] [place] [address] Care Team Providers Care Hoisting Pile Driving Engineer Name Role Phone SUKUMARGAGAN Primary Care Provider [...] Dickens's Name Patient's Relationship to Policy Dickens [facility] (R) MEDICARE ADVANTAGE MCR ([facility]) Jul 09, 2018 [id number]- [place] [id number] SOO,PAKO IN PATIENT [facility] ([facility]) MEDICARE [facility] ([facility]) Jul 09, 2018 [id number]- [place] [id number] [phone] SOOGIDEONV IN PATIENT Selected Encounter This section includes the information on record at [place] for the Encounter. Date/Time Encounter Type Encounter Description Reason Pro vider Source Aug 14, 2024 03:15 PM Outpatient Encounter COMMUNITY CARE CONSULT IHE Encounter Template Text not used by [place] Plan of Treatment: Future Appointments (+ 6 months) and Future Tests (+/- 45 days) The Plan of Treatment section includes future care activities for the patient from all [place] treatmentfacilities. This section includes future appointments and future orders which are active, pending or scheduled. Future Appointments This section includes appointments that were scheduled to occur 6 months from the date of the Encounter, up to a maximum of 20 appointments. The data comes from all [place] treatment facilities. Appointment Date/Time Appointment Type Appointme nt Facility Name November 16, 2024 08:00 AM AMBULATORY - NONE [facility] December 01, 2024 10:00 AM AMBULATORY - NONE [facility] December 03, 2024 10:00 AM AMBULATORY - NONE [facility] December 05, 2024 11:45 AM AMBULATORY - SURGERY [facility]CTOR[facility] Advance Directives: All historical and current Section Date Range: From patient's date of to the date document was created. This section includes ALL of a patient's completed or amended [place] Advance and Rescinded Directives. The entries below indicate that a directive exists for the patient, but an actual copy is not included with this document. The data comes from all [facility]. Date Advance Directives Provider Source Nov 03, 2022 ADVANCE DIRECTIVE DISCUSSION GIACOMO RAMIREZ [facility] Oct 30, 2022 ADVANCE DIRECTIVE ALEKSANDAR GRANADO [facility] Encounter Notes: All associated encounter notes This section contains the clinical notes associated to the Encounter. Date/Time Encounter Note(s) Provider Source Aug 14, 2024 03:15 PM NONVA NOTE: LOCAL TITLE: COMMUNITY CARE-PATIENT LETTER (AUTO-PRINT) STANDARD TITLE: NONVA NOTE DATE OF NOTE: AUG 14, 2024@15:15 ENTRY DATE: AUG 14, 2024@15:15:58 AUTHOR: RUDDY NIELSEN COSIGNER: URGENCY: STATUS: COMPLETED Dear: ALEXEI MILLERY DO NOT REPORT TO A [place] LOCATION OF CARE You have an appointment with a community provider. Your appointment details are: Appointment date & time: 10/13/2024 @ 2:20pm Community Provider or Facility: [facility] Community Provider Location: [address] [place] [address] Community Provider Type of Specialty: OPHTHALMOLOGY Referral number: [id number] Referral valid: 08/03/2024 to 10/13/2025 You can find your authorization information online at https://.cliniq.ly / If you have a co-pay for your care or prescriptions, [place] will send you a bill in the mail. Do not pay co-pays to community providers. If you get a bill or are asked for a co-pay, contact [facility] at [phone]. In case of emergency call 911 or go to the nearest emergency department. You or your emergency care provider can contact [place] to report emergency treatment. You have 72 hours to report emergency care to [place]. Call [phone] ([phone]) or visit [email or web address] If you have an immediate need for prescription medication after your community care visit, you may be eligible for up to a 14-day supply, filled at a participating [facility] pharmacy. You can find an in-network pharmacy online at: www.me.gov/find-locations/ For immediate prescription, provide an eligible pharmacy the following information: BIN: [id number] PCN: [id number] Group: [id number] The prescribed medications must be related to the services authorized on the referral and must be included in the [place] National Formulary. If you do not need medication immediately and for medication supply greater than 14-days, ask the community provider to send your prescription to the pharmacy at [facility] and [place] will mail it to you. To reach the [facility] pharmacy call and press 1. If you are eligible for travel benefits, please note: - Travel will only be paid to the nearest facility that can provide care. - All claims must include proof of attendance attached to the claim. (after-visit summary, discharge paper, letter from treating facility on official letterhead, patient name, dates of service, and provider signature). NOTE: Appointments lists, and preparation instructions are not acceptable. - Claims can be submitted through the Beneficiary Travel Self Service System (BTSSS)at access.me.gov - For assistance with your travel pay, you may contact [place] [employer] [facility] at [phone]. RUDDY NIELSEN [facility]
--- OUTSIDE RECORDS SUMMARY | 2025-02-12 21:22 | XMS_ITS | Encounter Summary ---
Author Name [facility] [place] [facility] Address [address] [place] [address] Care Team Providers Care Assistant Scientist Name Role Phone SUKUMARGAGAN Primary Care Provider [...] Dickens's Name Patient's Relationship to Policy Dickens [facility]IC[facility] ADVANT[facility] (R) Jul 09, 2018 [id number]- [place] [id number] SOO,PAKO IN [facility]IENT [facility]) MEDICARE ADVANTAGE [facility] ([facility]) Jul 09, 2018 [id number]- [place] [id number] [phone] SOO,PAKO IN PATIENT Selected Encounter This section includes the information on record at [place] for the Encounter. Date/Time Encounter Type Encounter Description Reason Pro vider Source IHE Encounter Template Text not used by [place] Advance Directives: All historical and current Section Date Range: From patient's date of to the date document was created. This section includes ALL of a patient's completed or amended [place] Advance and Rescinded Directives. The entries below indicate that a directive exists for the patient, but an actual copy is not included with this document. The data comes from all [place] facilities. Date Advance Directives Provider Source Nov 03, 2022 ADVANCE DIRECTIVE DISCUSSION GIACOMO RAMIREZ [facility] Oct 30, 2022 ADVANCE DIRECTIVE ALEKSANDAR GRANADO [facility]
--- OUTSIDE RECORDS SUMMARY | 2025-02-12 21:22 | XMS_ITS | Encounter Summary ---
Author Name [place] Address [address] [place] [address] Care Team Providers Care Parts Counter Specialist Name Role Phone SUKUMARGAGAN Primary Care Provider [...] Name Patient's Relationship to Policy Dickens [facility] (WNR) MEDICARE ADVANTAGE [facility] (WNR) Jul 09, 2018 [id number] [place] [id number] SOO,PAKO IN PATIENT [facility] (WNR) MEDICARE ADVANTAGE [facility] (WNR) Jul 09, 2018 [id number]- [place] [id number] [phone] SOO,PAKO IN PATIENT Selected Encounter This section includes the information on record at [place] for the Encounter. Date/Time Encounter Type Encounter Description Reason Provider Source November 12, 2024 02:08 PM NQHP OL DIG ASSMT&MGMT 5-10 CLINICAL PHARMACY ICD-10-CM I48.91 Unspecified atrial fibrillation LISS OROZCO IHE Encounter Template Text not used by [place] Assessments - Encounter Diagnoses This section includes the primary and secondary diagnoses documented for the Encounter. Date/Time Primary/Secondary Diagnosis Diagnosis Name Provider Source November 13, 2024 12:43 PM PRIMARY Unspecified atrial fibrillation JAKI OROZCOHernesto Francisco [facility] Plan of Treatment: Future Appointments (+ 6 months) and Future Tests (+/- 45 days) The Plan of Treatment section includes [facility] care [facility] for [facility] [place] [facility] This section includes future appointments and future orders which are active, pending or scheduled. Future Appointments This section includes appointments that were scheduled to occur 6 months from the date of the Encounter, up to a maximum of 20 appointments. The data comes from all [place] treatment facilities. Appointment Date/Time Appointment Type Appointme nt Facility Name November 16, 2024 08:00 AM AMBULATORY - NONE [facility] December 01, 2024 10:00 AM [facility]ORY - [facility] December 03, 2024 10:00 AM AMBULATORY [facility] December 05, 2024 11:45 AM AMBULATORY - SURGERY [facility] Mar 24, 2025 10:00 AM AMBULATORY - MEDICINE [facility] Mar 24, 2025 10:01 AM AMBULATORY - MEDICINE [facility] Mar 24, 2025 11:00 AM [facility]ORY - [facility] Lab Results: +/- 30 days of the encounter This section includes the Chemistry and Hematology Lab Results on record with [place] for the patient. Radiology Reports and Pathology Reports are provided separately, in subsequent sections. Lab Results This section contains the Chemistry/Hematology Results that were resulted 30 days before or 30 daysafter the date of the Encounter. Date/Time Source Result Type Result - Unit Interpretation Reference Range Specimen Type Comment November 11, 2024 06:48 AM [facility] MAGNESIUM PLASMA Specimen Type: PLASMA Comment: K result may show a positive bias due to hemolysis. Specimen slightly hemolyzed. Ordering Provider: CONNIE KOCH Report Released Date/Time: November 06, 2024 07:13 AM Reporting Lab: [facility] [address] [facility] [address] Performing Lab: [facility] [address] [facility] [address] MAGNESIUM 1.9 mg/dL 1.6-2.6 November 11, 2024 06:48 AM [facility] RENAL PANEL PLASMA Specimen Type: PLASM A Comment: K result may show a positive bias due to hemolysis. Specimen slightly hemolyzed. Ordering Provider: CONNIE KOCH Report Released Date/Time: November 06, 2024 07:13 AM Reporting Lab: [address] [address] Performing Lab: [address] [address] CREATININE 0.89 mg/dL 0.7-1.3 UREA NITROGEN 16.9 mg/dL 9.0-25.0 GLUCOSE 99 mg/dL 72-99 SODIUM 136 meq/L 136-145 POTASSIUM 4.3 meq/L 3.5-5 CHLORIDE 104 meq/L 98-107 CARBON DIOXIDE 25 meq/L 22-31 CALCIUM 8.8 mg/dL 8.4-10.4 PHOSPHOROUS 3.6 mg/dL 2.3-4.7 ALBUMIN 3.5 g/dL 3.4-5 EGFR (CKD-EPI 2020) 86.1 >60 November 11, 2024 06:48 AM [facility] CBC BLOOD Specimen Type: BLOOD No comment entered. Ordering Provider: CONNIE KOCH Report Released Date/Time: November 06, 2024 07:13 AM Reporting Lab: [address] [address] Performing Lab: [address] [address] WBC 9.2 10*3/uL 3.6-11.2 RBC 5.85 10*6/uL [...] 0.00-0. 20 November 10, 2024 06:51 AM [facility] MAGNESIUM PLASMA Specimen Type: PLASM A Comment: No hemolysis noted. Ordering Provider: CONNIE KOCH Report Released Date/Time: November 06, 2024 07:13 AM Reporting Lab: [address] [address] Performing Lab: [address] [address] MAGNESIUM 2.1 mg/dL 1.6-2.6 November 10, 2024 06:51 AM [facility] RENAL PANEL PLASMA Specimen Type: PLASM A Comment: No hemolysis noted. Ordering Provider: CONNIE KOCH Report Released Date/Time: November 06, 2024 07:13 AM Reporting Lab: [address] [address] Performing Lab: [address] [address] CREATININE 0.86 mg/dL 0.7-1.3 UREA NITROGEN 18.8 mg/dL 9.0-25.0 GLUCOSE 100 mg/dL H 72-99 SODIUM 137 meq/L 136-145 POTASSIUM 4.2 meq/L 3.5-5 CHLORIDE 104 meq/L 98-107 CARBON DIOXIDE 26 meq/L 22-31 CALCIUM 9.2 mg/dL 8.4-10.4 PHOSPHOROUS 3.6 mg/dL 2.3-4.7 ALBUMIN 3.8 g/dL 3.4-5 EGFR (CKD-EPI 2020) 87.0 >60 November 10, 2024 06:51 AM [facility] CBC BLOOD Specimen Type: BLOOD No comment entered. Ordering Provider: CONNIE KOCH Report Released Date/Time: November 06, 2024 07:13 AM Reporting Lab: [facility] [address] [facility] [address] Performing Lab: [facility] [address] [place] [phone] WBC 9.0 10*3/uL 3.6-11.2 RBC 5.85 10*6/uL [...] 0.00-0. 20 November 09, 2024 08:22 AM [facility] MAGNESIUM PLASMA Specimen Type: PLASM A Comment: No hemolysis noted. Ordering Provider: CONNIE KOCH Report Released Date/Time: November 06, 2024 07:13 AM Reporting Lab: [facility] [address] [facility] [address] Performing Lab: [address] [address] MAGNESIUM 2.1 mg/dL 1.6-2.6 November 09, 2024 08:22 AM [facility] RENAL PANEL PLASMA Specimen Type: PLASM A Comment: No hemolysis noted. Ordering Provider: CONNIE KOCH Report Released Date/Time: November 06, 2024 07:13 AM Reporting Lab: [address] [address] Performing Lab: [address] [address] CREATININE 0.86 mg/dL 0.7-1.3 UREA NITROGEN 18.6 mg/dL 9.0-25.0 GLUCOSE 87 mg/dL 72-99 SODIUM 138 meq/L 136-145 POTASSIUM 4.5 meq/L 3.5-5 CHLORIDE 104 meq/L 98-107 CARBON DIOXIDE 27 meq/L 22-31 CALCIUM 9.0 mg/dL 8.4-10.4 PHOSPHOROUS 3.2 mg/dL 2.3-4.7 ALBUMIN 3.5 g/dL 3.4-5 EGFR (CKD-EPI 2020) 87.0 >60 November 09, 2024 08:22 AM [facility] CBC BLOOD Specimen Type: BLOOD Comment: prev diff 11/07/24. Ordering Provider: CONNIE KOCH Report Released Date/Time: November 06, 2024 07:13 AM Reporting Lab: [address] [address] Performing Lab: [address] [address] WBC 10.7 10*3/uL 3.6-11.2 RBC 5.84 10*6/uL [...] 0.00-0. 20 November 08, 2024 09:04 AM [facility] MAGNESIUM PLASMA Specimen Type: PLASM A Comment: No hemolysis noted. Ordering Provider: CONNIE KOCH Report Released Date/Time: November 06, 2024 07:13 AM Reporting Lab: [address] [address] Performing Lab: [address] [address] MAGNESIUM 1.9 mg/dL 1.6-2.6 November 08, 2024 09:04 AM [facility] RENAL PANEL PLASMA Specimen Type: PLASM A Comment: No hemolysis noted. Ordering Provider: CONNIE KOCH Report Released Date/Time: November 06, 2024 07:13 AM Reporting Lab: [address] [address] Performing Lab: [address] [address] CREATININE 0.86 mg/dL 0.7-1.3 UREA NITROGEN 17.8 mg/dL 9.0-25.0 GLUCOSE 141 mg/dL H 72-99 SODIUM 137 meq/L 136-145 POTASSIUM 4.4 meq/L 3.5-5 CHLORIDE 103 meq/L 98-107 CARBON DIOXIDE 26 meq/L 22-31 CALCIUM 8.9 mg/dL 8.4-10.4 PHOSPHOROUS 3.2 mg/dL 2.3-4.7 ALBUMIN 3.6 g/dL 3.4-5 EGFR (CKD-EPI 2020) 87.0 >60 November 08, 2024 09:04 AM [facility] CBC BLOOD Specimen Type: BLOOD No comment entered. Ordering Provider: CONNIE KOHC Report Released Date/Time: November 06, 2024 07:13 AM Reporting Lab: [place] [address] [facility] [address] Performing Lab: [place] [address] [facility] [address] WBC 10.1 10*3/uL 3.6-11.2 RBC 5.77 10*6/uL [...] 0.00-0. 20 November 07, 2024 06:52 AM [facility] MAGNESIUM PLASMA Specimen Type: PLASM A Comment: No hemolysis noted. Ordering Provider: CONNIE KOCH Report Released Date/Time: November 06, 2024 07:13 AM Reporting Lab: [place] [address] [facility] [address] Performing Lab: [place] [address] [facility] [address] MAGNESIUM 2.0 mg/dL 1.6-2.6 November 07, 2024 06:52 AM [facility] RENAL PANEL PLASMA Specimen Type: PLASM A Comment: No hemolysis noted. Ordering Provider: CONNIE KOCH Report Released Date/Time: November 06, 2024 07:13 AM Reporting Lab: [place] [address] [facility] [address] Performing Lab: [address] [address] CREATININE 1.00 mg/dL 0.7-1.3 UREA NITROGEN 19.3 mg/dL 9.0-25.0 GLUCOSE 123 mg/dL H 72-99 SODIUM 138 meq/L 136-145 POTASSIUM 4.7 meq/L 3.5-5 CHLORIDE 102 meq/L 98-107 CARBON DIOXIDE 27 meq/L 22-31 CALCIUM 8.9 mg/dL 8.4-10.4 PHOSPHOROUS 4.1 mg/dL 2.3-4.7 ALBUMIN 3.8 g/dL 3.4-5 EGFR (CKD-EPI 2020) 75.6 >60 November 07, 2024 06:52 AM [facility] CBC BLOOD Specimen Type: BLOOD No comment entered. Ordering Provider: CONNIE KOCH Report Released Date/Time: November 06, 2024 07:13 AM Reporting Lab: [address] [address] Performing Lab: [address] [address] WBC 12.6 10*3/uL H 3.6-11.2 RBC 5.50 [...] H 2.10-8.00 November 07, 2024 06:35 AM [facility] DIGOXIN PLASMA Specimen Type: PLASM A No comment entered. Ordering Provider: CONNIE KOCH Report Released Date/Time: November 07, 2024 08:41 AM Reporting Lab: [address] [address] Performing Lab: [address] [address] DIGOXIN <0.15 ng/mL L 0.8-2 November 06, 2024 07:05 AM [facility] MAGNESIUM PLASMA Specimen Type: PLASM A Comment: No hemolysis noted. Ordering Provider: MICH RAMIREZ Report Released Date/Time: Nov 05, 2024 11:04 PM Reporting Lab: [address] [address] Performing Lab: [address] [address] MAGNESIUM 1.9 mg/dL 1.6-2.6 November 06, 2024 07:05 AM [facility] RENAL PANEL PLASMA Specimen Type: PLASM A Comment: No hemolysis noted. Ordering Provider: MICH RAMIREZ Report Released Date/Time: Nov 05, 2024 11:04 PM Reporting Lab: [address] [address] Performing Lab: [address] [address] CREATININE 0.88 mg/dL 0.7-1.3 UREA NITROGEN 18.0 mg/dL 9.0-25.0 GLUCOSE 101 mg/dL H 72-99 SODIUM 136 meq/L 136-145 POTASSIUM 4.1 meq/L 3.5-5 CHLORIDE 99 meq/L 98-107 CARBON DIOXIDE 30 meq/L 22-31 CALCIUM 8.8 mg/dL 8.4-10.4 PHOSPHOROUS 4.1 mg/dL 2.3-4.7 ALBUMIN 3.1 g/dL L 3.4-5 EGFR (CKD-EPI 2020) 86.4 >60 November 06, 2024 07:05 AM [facility] CBC BLOOD Specimen Type: BLOOD No comment entered. Ordering Provider: MICH RAMIREZ Report Released Date/Time: Nov 05, 2024 11:04 PM Reporting Lab: [facility] [address] [facility] [address] Performing Lab: [facility] [address] [facility] [address] WBC 10.3 10*3/uL 3.6-11.2 RBC 5.27 10*6/uL [...] 0.00-0. 20 November 06, 2024 03:00 AM [facility] MRSA SURVL NARES DNA NARES Specimen [...] Nov 05, 2024 06:43 PM Reporting Lab: [facility] [address] [place] [address] Performing Lab: [address] [address] MRSA SURVL NARES DNA Negative Negative Nov 05, 2024 08:34 PM [facility] MAGNESIUM PLASMA Specimen Type: PLASM A Comment: No hemolysis noted. Ordering Provider: IRON TAFOYA Report Released Date/Time: Nov 05, 2024 06:43 PM Reporting Lab: [address] [address] Performing Lab: [address] [address] MAGNESIUM 1.9 mg/dL 1.6-2.6 Nov 05, 2024 08:34 PM [facility] PHOSPHOROUS PLASMA Specimen Type: PLASM A Comment: No hemolysis noted. Ordering Provider: IRON TAFOYA Report Released Date/Time: Nov 05, 2024 06:43 PM Reporting Lab: [address] [address] Performing Lab: [address] [address] PHOSPHOROUS 3.7 mg/dL 2.3-4.7 Nov 05, 2024 08:34 PM [facility] CBC BLOOD Specimen Type: BLOOD No comment entered. Ordering Provider: IRON TAFOYA Report Released Date/Time: Nov 05, 2024 06:43 PM Reporting Lab: [address] [address] Performing Lab: [address] [address] WBC 11.1 10*3/uL 3.6-11.2 RBC 5.73 10*6/uL [...] 0.60 BASOPHILS, ABSOLUTE 0.07 10*3/uL 0.00-0. 20 Nov 05, 2024 08:34 PM [facility] COMPREHENSIVE METABOLIC PANEL PLASMA Specimen Type: PLASMA Comment: No hemolysis noted. Ordering Provider: IRON TAFOYA Report Released Date/Time: Nov 05, 2024 06:43 PM Reporting Lab: [place] [address] [facility] [address] Performing Lab: [address] [address] CREATININE 1.02 mg/dL 0.7-1.3 UREA NITROGEN 19.8 [...] U/L 8-40 EGFR (CKD-EPI 2020) 73.8 >60 Vital Signs: All taken on the encounter date This section contains inpatient and outpatient Vital Signs collected on the date of the Encounter. Date/Time Temperature Pulse Blood Pressure Respiratory Rate SP02 Pain Height Weight Body Mass Index Source November 12, 2024 01:21 PM 97.7 91 147/94 18 99 0 [facility] November 12, 2024 09:02 AM 99.2 82 107/71 18 98 0 [facility] November 12, 2024 08:43 AM 0 [facility] November 12, 2024 07:27 AM 97.3 61 133/83 18 97 1 209 30 [facility] November 12, 2024 04:53 AM 0 [facility] Social History: Smoking Status (Most current) and Tobacco Use (All prior to encounter date) This section includes the most current, and the historical, smoking and tobacco- related health factors from the [place] facility where the Encounter took place. Current Smoking Status This section includes the most current smoking, or tobacco-related health factor, from the [place] facility where the Encounter took place. Date/Time Current Smoking Status Comment Facil [facility] Oct 17, 2022 02:55 PM ORYX ADMIT TOBACCO SCREEN REFUSED [facility] Advance Directives: All historical and current Section Date Range: From patient's date of to the date document was created. This section includes ALL of a patient's completed or amended [place] Advance and Rescinded Directives. The entries below indicate that a directive exists for the patient, but an actual copy is not included with this document. The data comes from all [place] facilities. Date Advance Directives Provider Source Nov 03, 2022 ADVANCE DIRECTIVE DISCUSSION GIACOMO RAMIREZ [facility] Oct 30, 2022 ADVANCE DIRECTIVE ALEKSANDAR GRANADO Encounter Notes: All associated encounter notes This section contains the clinical notes associated to the Encounter. Date/Time Encounter Note(s) Provider Source November 12, 2024 02:09 PM PHARMACY CONSULT: LOCAL TITLE: PHARMACY PRIOR APPROVAL CONSULT ST STANDARD TITLE: PHARMACY CONSULT DATE OF NOTE: NOVEMBER 12, 2024@14:09 ENTRY DATE: NOVEMBER 12, 2024@14:09:18 AUTHOR: LISS OROZCO EXP COSIGNER: URGENCY: STATUS: COMPLETED The medical record has been reviewed with regard to this prior authorization drug request. Medication requested: APIXABAN 5MG TAB Medication indication: Anticoagulation Medical history relevant to this request: - Team starting anticoagulation for atrial fibrillation - Discussed dosing; 5 mg BID appropriate for indication, renal fucntion, age - no adjustment needed - Approved for discharge at this time - See anticoagulation discharge note for more details The request is approved - A documented therapeutic failure of the preferred formulary alternative(s) exists TIME REVIEWING CHART:5. (minutes) /rody/ LISS OROZCO PHARMD, BCPS CLINICAL CHIEF DISPATCHER SERVICE Signed: 11/13/2024 12:53 LISS OROZCO [facility]
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
--- OUTSIDE RECORDS SUMMARY | 2025-02-12 21:22 | XMS_ITS | Encounter Summary ---
Author Name [facility] [place] [facility] [place] Address [address] [place] [address] Care Team Providers Care Spring Former Machine Name Role Phone SUKUMARGAGAN Primary Care Provider [...] Name Patient's Relationship to Policy Dickens [employer] [facility] (WNR) MEDICARE ADVANTAGE [facility] (WNR) Jul 09, 2018 [id number] [phone] SOO,PAKO IN PATIENT [employer] [facility] (WNR) MEDICARE ADVANTAGE [facility] ([facility] Jul 09, 2018 [id number] [phone] SOO,PAKO IN PATIENT Selected Encounter This section includes the information on record at [place] for the Encounter. Date/Time Encounter Type Encounter Description Reason Provider Source November 07, 2024 08:15 AM PT EVAL LOW COMPLEX 20 MIN PHYSICAL THERAPY ICD-10-CM F03.90 Unsp dementia, unsp severity, without beh/psych/mood /anx AIDAN LONDONO IHE Encounter Template Text not used by [place] Assessments - Encounter Diagnoses This section includes the primary and secondary diagnoses documented for the Encounter. Date/Time Primary/Secondary Diagnosis Diagnosis Name Provider Source November 07, 2024 10:18 AM PRIMARY Unsp dementia, unsp severity, without beh/psych/mood/a nx AIDAN LONDONO [facility] Plan of Treatment: Future Appointments (+ 6 months) and Future Tests (+/- 45 days) The Plan of Treatment section includes future care activities for the patient from all [place] treatmentfacilities. This section includes future appointments and future orders which are active, pending or scheduled. Future Appointments This section includes appointments that were scheduled to occur 6 months from the date of the Encounter, up to a maximum of 20 appointments. The data comes from all [place] treatment facilities. Appointment Date/Time Appointment Type Appointme nt Facility Name November 16, 2024 08:00 AM AMBULATORY - NONE [facility] December 01, 2024 10:00 AM AMBULATORY - NONE [facility] December 03, 2024 10:00 AM AMBULATORY - NONE [facility] December 05, 2024 11:45 AM AMBULATORY - SURGERY [facility] Mar 24, 2025 10:00 AM AMBULATORY - MEDICINE [facility] Mar 24, 2025 10:01 AM AMBULATORY - MEDICINE [facility] Mar 24, 2025 11:00 AM AMBULATORY - NONE [facility] Lab Results: +/- 30 days of the encounter This section includes the Chemistry and Hematology Lab Results on record with [place] for the patient. Radiology Reports and Pathology Reports are provided separately, in subsequent sections. Lab Results This section contains the Chemistry/Hematology Results that were resulted 30 days before or 30 daysafter the date of the Encounter. Date/Time Source Result Type Result - Unit Interpretation Reference Range Specimen Type Comment November 11, 2024 06:48 AM [facility] MAGNESIUM PLASMA Specimen Type: PLASMA Comment: K result may show a positive bias due to hemolysis. Specimen slightly hemolyzed. Ordering Provider: CONNIE KOCH Report Released Date/Time: November 06, 2024 07:13 AM Reporting Lab: [facility] [address] [facility] [address] Performing Lab: [facility] [address] [place] [phone] MAGNESIUM 1.9 mg/dL 1.6-2.6 November 11, 2024 06:48 AM [facility] RENAL PANEL PLASMA Specimen Type: PLASM A Comment: K result may show a positive bias due to hemolysis. Specimen slightly hemolyzed. Ordering Provider: CONNIE KOCH Report Released Date/Time: November 06, 2024 07:13 AM Reporting Lab: [address] [address] Performing Lab: [address] [address] CREATININE 0.89 mg/dL 0.7-1.3 UREA NITROGEN 16.9 mg/dL 9.0-25.0 GLUCOSE 99 mg/dL 72-99 SODIUM 136 meq/L 136-145 POTASSIUM 4.3 meq/L 3.5-5 CHLORIDE 104 meq/L 98-107 CARBON DIOXIDE 25 meq/L 22-31 CALCIUM 8.8 mg/dL 8.4-10.4 PHOSPHOROUS 3.6 mg/dL 2.3-4.7 ALBUMIN 3.5 g/dL 3.4-5 EGFR (CKD-EPI 2020) 86.1 >60 November 11, 2024 06:48 AM [facility] CBC BLOOD Specimen Type: BLOOD No comment entered. Ordering Provider: CONNIE KOCH Report Released Date/Time: November 06, 2024 07:13 AM Reporting Lab: [address] [address] Performing Lab: [address] [address] WBC 9.2 10*3/uL 3.6-11.2 RBC 5.85 10*6/uL [...] 20 November 10, 2024 06:51 AM [facility] MAGNESIUM PLASMA Specimen Type: PLASM A Comment: No hemolysis noted. Ordering Provider: CONNIE KOCH Report Released Date/Time: November 06, 2024 07:13 AM Reporting Lab: [address] [address] Performing Lab: [address] [address] MAGNESIUM 2.1 mg/dL 1.6-2.6 November 10, 2024 06:51 AM [facility] RENAL PANEL PLASMA Specimen Type: PLASM A Comment: No hemolysis noted. Ordering Provider: CONNIE KOCH Report Released Date/Time: November 06, 2024 07:13 AM Reporting Lab: [address] [address] Performing Lab: [address] [address] CREATININE 0.86 mg/dL 0.7-1.3 UREA NITROGEN 18.8 mg/dL 9.0-25.0 GLUCOSE 100 mg/dL H 72-99 SODIUM 137 meq/L 136-145 POTASSIUM 4.2 meq/L 3.5-5 CHLORIDE 104 meq/L 98-107 CARBON DIOXIDE 26 meq/L 22-31 CALCIUM 9.2 mg/dL 8.4-10.4 PHOSPHOROUS 3.6 mg/dL 2.3-4.7 ALBUMIN 3.8 g/dL 3.4-5 EGFR (CKD-EPI 2020) 87.0 >60 November 10, 2024 06:51 AM [facility] CBC BLOOD Specimen Type: BLOOD No comment entered. Ordering Provider: CONNIE KOCH Report Released Date/Time: November 06, 2024 07:13 AM Reporting Lab: [facility] [address] [facility] [address] Performing Lab: [facility] [address] [place] [address] WBC 9.0 10*3/uL 3.6-11.2 RBC 5.85 10*6/uL [...] 20 November 09, 2024 08:22 AM [facility] MAGNESIUM PLASMA Specimen Type: PLASM A Comment: No hemolysis noted. Ordering Provider: CONNIE KOCH Report Released Date/Time: November 06, 2024 07:13 AM Reporting Lab: [facility] [address] [facility] [address] Performing Lab: [address] [address] MAGNESIUM 2.1 mg/dL 1.6-2.6 November 09, 2024 08:22 AM [facility] RENAL PANEL PLASMA Specimen Type: PLASM A Comment: No hemolysis noted. Ordering Provider: CONNIE KOCH Report Released Date/Time: November 06, 2024 07:13 AM Reporting Lab: [address] [address] Performing Lab: [address] [address] CREATININE 0.86 mg/dL 0.7-1.3 UREA NITROGEN 18.6 mg/dL 9.0-25.0 GLUCOSE 87 mg/dL 72-99 SODIUM 138 meq/L 136-145 POTASSIUM 4.5 meq/L 3.5-5 CHLORIDE 104 meq/L 98-107 CARBON DIOXIDE 27 meq/L 22-31 CALCIUM 9.0 mg/dL 8.4-10.4 PHOSPHOROUS 3.2 mg/dL 2.3-4.7 ALBUMIN 3.5 g/dL 3.4-5 EGFR (CKD-EPI 2020) 87.0 >60 November 09, 2024 08:22 AM [facility] CBC BLOOD Specimen Type: BLOOD Comment: prev diff 11/07/24. Ordering Provider: CONNIE KOCH Report Released Date/Time: November 06, 2024 07:13 AM Reporting Lab: [address] [address] Performing Lab: [address] [address] WBC 10.7 10*3/uL 3.6-11.2 RBC 5.84 10*6/uL [...] 20 November 08, 2024 09:04 AM [facility] MAGNESIUM PLASMA Specimen Type: PLASM A Comment: No hemolysis noted. Ordering Provider: CONNIE KOCH Report Released Date/Time: November 06, 2024 07:13 AM Reporting Lab: [address] [address] Performing Lab: [address] [address] MAGNESIUM 1.9 mg/dL 1.6-2.6 November 08, 2024 09:04 AM [facility] RENAL PANEL PLASMA Specimen Type: PLASM A Comment: No hemolysis noted. Ordering Provider: CONNIE KOCH Report Released Date/Time: November 06, 2024 07:13 AM Reporting Lab: [address] [address] Performing Lab: [address] [address] CREATININE 0.86 mg/dL 0.7-1.3 UREA NITROGEN 17.8 mg/dL 9.0-25.0 GLUCOSE 141 mg/dL H 72-99 SODIUM 137 meq/L 136-145 POTASSIUM 4.4 meq/L 3.5-5 CHLORIDE 103 meq/L 98-107 CARBON DIOXIDE 26 meq/L 22-31 CALCIUM 8.9 mg/dL 8.4-10.4 PHOSPHOROUS 3.2 mg/dL 2.3-4.7 ALBUMIN 3.6 g/dL 3.4-5 EGFR (CKD-EPI 2020) 87.0 >60 November 08, 2024 09:04 AM [facility] CBC BLOOD Specimen Type: BLOOD No comment entered. Ordering Provider: CONNIE KOCH Report Released Date/Time: November 06, 2024 07:13 AM Reporting Lab: [facility] [address] [facility] [address] Performing Lab: [place] [address] [facility] [address] WBC 10.1 10*3/uL 3.6-11.2 RBC 5.77 10*6/uL [...] 20 November 07, 2024 06:52 AM [facility] MAGNESIUM PLASMA Specimen Type: PLASM A Comment: No hemolysis noted. Ordering Provider: CONNIE KOCH Report Released Date/Time: November 06, 2024 07:13 AM Reporting Lab: [place] [id number] [facility] [address] Performing Lab: [address] [address] MAGNESIUM 2.0 mg/dL 1.6-2.6 November 07, 2024 06:52 AM [facility] RENAL PANEL PLASMA Specimen Type: PLASM A Comment: No hemolysis noted. Ordering Provider: CONNIE KOCH Report Released Date/Time: November 06, 2024 07:13 AM Reporting Lab: [place] [address] [facility] [address] Performing Lab: [address] [address] CREATININE 1.00 mg/dL 0.7-1.3 UREA NITROGEN 19.3 mg/dL 9.0-25.0 GLUCOSE 123 mg/dL H 72-99 SODIUM 138 meq/L 136-145 POTASSIUM 4.7 meq/L 3.5-5 CHLORIDE 102 meq/L 98-107 CARBON DIOXIDE 27 meq/L 22-31 CALCIUM 8.9 mg/dL 8.4-10.4 PHOSPHOROUS 4.1 mg/dL 2.3-4.7 ALBUMIN 3.8 g/dL 3.4-5 EGFR (CKD-EPI 2020) 75.6 >60 November 07, 2024 06:52 AM [facility] CBC BLOOD Specimen Type: BLOOD No comment entered. Ordering Provider: CONNIE KOCH Report Released Date/Time: November 06, 2024 07:13 AM Reporting Lab: [address] [address] Performing Lab: [address] [address] WBC 12.6 10*3/uL H 3.6-11.2 RBC 5.50 [...] 2.10-8.00 November 07, 2024 06:35 AM [facility] DIGOXIN PLASMA Specimen Type: PLASM A No comment entered. Ordering Provider: CONNIE KOCH Report Released Date/Time: November 07, 2024 08:41 AM Reporting Lab: [facility] [address] [facility] [address] Performing Lab: [facility] [address] [place] [phone] DIGOXIN <0.15 ng/mL L 0.8-2 November 06, 2024 07:05 AM [facility] MAGNESIUM PLASMA Specimen Type: PLASM A Comment: No hemolysis noted. Ordering Provider: MICH RAMIREZ Report Released Date/Time: Nov 05, 2024 11:04 PM Reporting Lab: [facility] [address] [facility] [address] Performing Lab: [facility] [address] [facility] [address] MAGNESIUM 1.9 mg/dL 1.6-2.6 November 06, 2024 07:05 AM [facility] RENAL PANEL PLASMA Specimen Type: PLASM A Comment: No hemolysis noted. Ordering Provider: MICH RAMIREZ Report Released Date/Time: Nov 05, 2024 11:04 PM Reporting Lab: [facility] [address] [facility] [address] Performing Lab: [facility] [address] [facility] [address] CREATININE 0.88 mg/dL 0.7-1.3 UREA NITROGEN 18.0 mg/dL 9.0-25.0 GLUCOSE 101 mg/dL H 72-99 SODIUM 136 meq/L 136-145 POTASSIUM 4.1 meq/L 3.5-5 CHLORIDE 99 meq/L 98-107 CARBON DIOXIDE 30 meq/L 22-31 CALCIUM 8.8 mg/dL 8.4-10.4 PHOSPHOROUS 4.1 mg/dL 2.3-4.7 ALBUMIN 3.1 g/dL L 3.4-5 EGFR (CKD-EPI 2020) 86.4 >60 November 06, 2024 07:05 AM [facility] CBC BLOOD Specimen Type: BLOOD No comment entered. Ordering Provider: MICH RAMIREZ Report Released Date/Time: Nov 05, 2024 11:04 PM Reporting Lab: [facility] [address] [facility] [address] Performing Lab: [facility] [address] [facility] [address] WBC 10.3 10*3/uL 3.6-11.2 RBC 5.27 10*6/uL [...] 20 November 06, 2024 03:00 AM [facility] MRSA SURVL NARES DNA NARES [...] Nov 05, 2024 06:43 PM Reporting Lab: [address] [address] Performing Lab: [address] [address] MRSA SURVL NARES DNA Negative Negative Nov 05, 2024 08:34 PM [facility] MAGNESIUM PLASMA Specimen Type: PLASM A Comment: No hemolysis noted. Ordering Provider: IRON TAFOYA Report Released Date/Time: Nov 05, 2024 06:43 PM Reporting Lab: [address] [address] Performing Lab: [address] [address] MAGNESIUM 1.9 mg/dL 1.6-2.6 Nov 05, 2024 08:34 PM [facility] COMPREHENSIVE METABOLIC PANEL PLASMA Specimen Type: PLASMA Comment: No hemolysis noted. Ordering Provider: IRON TAFOYA Report Released Date/Time: Nov 05, 2024 06:43 PM Reporting Lab: [address] [address] Performing Lab: [address] [address] CREATININE 1.02 mg/dL 0.7-1.3 UREA NITROGEN 19.8 [...] >60 Nov 05, 2024 08:34 PM [facility] PHOSPHOROUS PLASMA Specimen Type: PLASM A Comment: No hemolysis noted. Ordering Provider: IRON TAFOYA Report Released Date/Time: Nov 05, 2024 06:43 PM Reporting Lab: [facility] [address] [place] [address] Performing Lab: [address] [address] PHOSPHOROUS 3.7 mg/dL 2.3-4.7 Nov 05, 2024 08:34 PM [facility] CBC BLOOD Specimen Type: BLOOD No comment entered. Ordering Provider: IRON TAFOYA Report Released Date/Time: Nov 05, 2024 06:43 PM Reporting Lab: [address] [address] Performing Lab: [address] [address] WBC 11.1 10*3/uL 3.6-11.2 RBC 5.73 10*6/uL [...] 0.60 BASOPHILS, ABSOLUTE 0.07 10*3/uL 0.00-0. 20 Vital Signs: All taken on the encounter date This section contains inpatient and outpatient Vital Signs collected on the date of the Encounter. Date/Time Temperature Pulse Blood Pressure Respiratory Rate SP02 Pain Height Weight Body Mass Index Source November 07, 2024 11:16 PM 0 [facility] November 07, 2024 09:00 PM 109 [facility] November 07, 2024 08:40 PM 98.1 97 144/99 19 100 [facility] November 07, 2024 03:03 PM 98.6 106 111/78 20 97 [facility] November 07, 2024 12:26 PM 98.9 79 110/65 20 97 [facility] Social History: Smoking Status (Most current) and Tobacco Use (All prior to encounter date) This section includes the most current, and the historical, smoking and tobacco- related health factors from the [place] facility where the Encounter took place. Current Smoking Status This section includes the most current smoking, or tobacco-related health factor, from the [place] facility where the Encounter took place. Date/Time Current Smoking Status Comment Nuzhat bennett Oct 17, 2022 02:55 PM ORYX ADMIT TOBACCO SCREEN REFUSED [facility] Advance Directives: All historical and current Section Date Range: From patient's date of to the date document was created. This section includes ALL of a patient's completed or amended [place] Advance and Rescinded Directives. The entries below indicate that a directive exists for the patient, but an actual copy is not included with this document. The data comes from all [place] facilities. Date Advance Directives Provider Source Nov 03, 2022 ADVANCE DIRECTIVE DISCUSSION GIACOMO RAMIREZ [facility] Oct 30, 2022 ADVANCE DIRECTIVE ALEKSANDAR GRANADO Encounter Notes: All associated encounter notes This section contains the clinical notes associated to the Encounter. Date/Time Encounter Note(s) Provider Source November 07, 2024 08:15 AM PHYSICAL THERAPY C ONSULT: LOCAL TITLE: PT CONSULT STL STANDARD TITLE: PHYSICAL THERAPY CONSULT DATE OF NOTE: NOVEMBER 07, 2024@08:15 ENTRY DATE: NOVEMBER 07, 2024@09:37:56 AUTHOR: AIDAN LONDONO EXP COSIGNER: URGENCY: STATUS: COMPLETED PHYSICAL THERAPY INITIAL EVALUATION/DISCHARGE Provisional Dx: F03.90 Requesting Provider: Mike Reason for Request: Safety assessment/recommendations for post-acute placement PRECAUTIONS: falls, 3:1 sitter for falls Activity: no activity orders noted Evaluation Date: 11/07/2024 Length of Visit: [id number] Treatment: 13 min evaluation Visit #1 HISTORY OF PRESENT ILLNESS: Pt is an 79 yo male who transferred from [facility] for assistance with placement. Pt has been hospitalized several times over last month. 10/14-10/19 s/p fall resulting in distal radial fracture found with UTI and encephalopathic. DC home c/family and then readmitted 10/20 d/t behavioral disturbance and confusion PT/OT assessed and cleared him for home. However, per chart review family no longer believes they can take care of him at home and are interested in facility. Transferred to [facility] for assistance with placement. PMH/PSH: Alxheimer's dementia, HFrEF, afib, emphysema, melanoma, neurocognitive disorder, ETOH abuse SOCIAL HISTORY/PRIOR LEVEL OF FUNCTION *Information provided by: chart review and patient Home environment: pt previously lived at home along but unable to explain home set up. States he's been staying with his son and xxwrzrwk-wa-tez recently and will likely move in there Assistance at home: son and his family Home equipment: cane or wlaker I'm not sure. I don't use it. ADLs: Ind IADLs: requires assist Vocation: n/a Mobility: community ambulator s/AD History of falls: denied stated the only time I've falled was when I was the Ayla E[employer] Ira. Fear of falling: no SUBJECTIVE: Pt verbally agreeable to PT evaluation. Stated I need to get home to my dog. My eytjevan-xi-bie is mean to him that's why he bit her. Eliud, his dog, is thwe sweetest unless you test him. Pt goals: to return home COGNITION/COMMUNICATION: alert and oriented to self and that he was in a hospital did not know month, year or situation while walking, pt stated I don't know where I am. PAIN: denied OBJECTIVE: DILIA viramontes/Daniela SHERWOOD prior to evaluation. Pt received sitting up in bed c/safey VITALS: Position BP HR O2 Pre-Activity sitting 101/67 79 97% RA ROM: grossly WFL's in all extremities STRENGTH: grossly 4/5 in bilateral UE's grossly 4/5 in bilateral LE's NEURO: Sensation: light touch intact in all 4 extremities Tone/Motor Control: grossly WFL's throughout FUNCTIONAL MOBILITY: Level of Assist Supine <-> sit: Ind Scooting: Mod I Transfer bed <-> chair: n/a Sit <-> stand: Mod I Gait: Sup >250' s/AD -gait pattern/deviations: slow cadnece, narrowed RADHA, decreased step length but steady reciprocal pattern c/good heel strike. Pt walks c/ hands clasped behind his back -able to negotiate obstacles and change directions s/LOB ENDURANCE: (X)Good () Fair () Poor Outcome Measures: [facility] AM-PAC 6-clicks How much difficulty? Score 1. Turning over in bed 4 2. Sitting down and standing 4 3. Moving from supine to sit 4 How much help from another person? Score 4. Moving to/from bed to chair 4 5. Need to walk in hospital room 3 6. Climbing 3-5 steps 3 Total: Scores Unable: 1, Alot: 2, A little: 3, None: 4 Score >19 indicates patient likely to return home Home 19-24 HH 17.8-19.5 Rehab/SNF 14-17.8 LTAC 11.25-14 10 MWT/Gait Speed: 2.14 feet/sec = 0.65 meters/sec INTERPRETATION: <1.8 feet/sec = risk for recurrent falls Less than 0.4 m/sec: Household ambulator 0.4 to 0.8 m/sec: Limited community ambulator 0.8 to 1.2 m/sec: Community ambulator 1.2 m/sec and above: Able to safely cross streets Interventions: [x]EDUCATION: Pt/family member demonstrated fair understanding of education/instructions. Pt given 1:1 instruction on: _X__Purpose of PT _X__ findings of evaluation, POC, goals, DC plan per assessment Pt left as received Assessment: Pt is an 79 yo male with history of Alzheimer's adm for placement. Pt referred to PT for evaluation on 11/06/2024. Prior to this admission, pt was living with family but demonstrating confusion and behavioral disturbances. He was Ind c/ADLs and ambulatory s/AD. Currently, pt oriented x1-2. Pleasant and cooperative, follows commands consistently. Appears functionally at his baseline as able to ambulate liited community distances c/steady gait. Pt would benefit from increased supervision for safety given congitive issues. No acute PT needs indicated at this time. He's appropriate to continue to mobilize c/nursing staff while remains in house. DISCHARGE RECOMMENDATION: []Low Intensity Inpatient Rehabilitation []Comprehensive Inpatient Rehabilitation []29/01 Care [X]29/01 Supervision []Home with []No further needs []Consult to Out ST PT for a virtual retirement Visit []consult to Occupational Therapy [place] Video Connect Home Safety Eval []Home Health PT- [facility] []Prior Level of Assist []Outpatient PT []Assist for IADLs Equipment Issued: none Problems: complicating co-morbidities decreased endurance compromised balance Goals: NA- DC PT P.T. Prognosis: __POOR- Limited potential for improvement.* __GUARDED- There exists a question of the potential for improvement secondary to any of the above questions.* _X_FAIR- Presents with the potential to improve in some areas while other deficits may remain unchanged.* __GOOD- Presents with the potential to improve to a level of functional independence, though may continue to demonstrate certain minimal limitations. __EXCELLENT- Presents with the potential to fully recover with no residual deficits. PLAN: Pt is discharged from [facility] as no skilled needs have been identified. Pt presented with the following number of personal factors/co-morbidities influencing the PT plan of care: -> 79 year-old -> Home environment- recently moved in with son -> dementia at baseline -> safety concerns -> -> Total number of elements examined: 5 including -> Strength -> Neurological Influence -> Balance -> Functional Mobility -> Vital Signs Pts CLINICAL PRESENTATION was: [X] Stable and/or Uncomplicated: [] Evolving Clinical Presentation with Changing Clinical Characteristics: [] Unstable and Unpredictable Characteristics: Therefore, the level of complexity for this patient was: [X] Low, [] Moderate, [] High If this is the last PT intervention then this documentation serves at the discharge Note as well. * Learning Assessment: Patient/Caregiver appeared ready for instruction (good eye contact, appropriate questions, active participation, etc.) Person(s) who received education: Patient Education Topic/Teaching Needs: Rehabilitation and Habilitation see education Methods used included: One-on-one: verbal and demonstration Teaching outcomes: Poor level of understanding Unable to return demonstration /rody/ AIDAN LONDONO PT, DPT GERIATRIC CLINICAL SPECIALIST Signed: 11/07/2024 10:[address] [facility]
--- OUTSIDE RECORDS SUMMARY | 2025-02-12 21:22 | XMS_ITS | Clinical Summary ---
Author Organization [facility] Address [address] [place] [address] Care Team Providers Care Scientific Software Engineer Name Role Phone Kofi Simpson MD, Ever Unavailable [phone] Mirza Sepulveda MD Unavailable [phone] Froylan Galvan MD Unavailable UnavailEvelyn Spicer NP Unavailable Unavailable Nancy Mora Primary Care Provider [phone] Allergies Active Allergy Reactions Criticality Noted Date Comments Penicillins Nausea Only Medium 12/17/2015 Pseudoephedrine Dizziness Medium 12/11/2017 Medications digoxin (LANOXIN) 0.125 MG tabletIndication s:a fib Take 1 tablet (0.125 mg total) by mouth daily. Indications : a fib 30 tablet 10/20/2024 Active Active Problems Problem Noted Date Diagnosed Date Atrial fibrillation with RVR (CMS/HCC [facility]) 0 10/14/2024 Acquired hallux rigidus 10/14/2024 Overview (10/14/2024): Podiatry eval of bilateral foot pain 11/2020 Acute chest pain 10/14/2024 Overview (10/14/2024): [facility] ER visit 01/15/22, workup unimpressive. Allergic rhinitis 10/14/2024 Altered mental status 10/14/2024 Overview (10/14/2024): [facility] ER visit x2 in 1 day p eloping from home, found by PD covered in stool, [facility] ER work up and transferred to [facility]. Asymmetrical sensorineural hearing loss 10/15/19 25 Overview (10/14/2024): w/ tinnitus Basal cell carcinoma of back 10/14/2024 Cataract 10/14/2024 Overview (10/14/2024): surgical tx planned for February 2024. Cyst of pancreas ([facility]/HCC) 10/14/2024 Overview (10/14/2024): incidental on CT 11/2017. Edema of lower extremity 10/14/2024 Overview (10/14/2024): hx Tx PRN Lasix (and again in [facility] visit 04/13/24) then started schedule 20mg [...] right presumed OA, to f/u w/ Ortho ([facility] [address]) PRN. Mixed anxiety and depressive disorder 10/14/2024 Overview (10/14/2024): Anxiety manifesting as (or complicated by) insomnia & dizziness, controlled w/ PRN Diazepam. - hx citalopram tx 11/2017-11/2020 Multiple actinic keratoses 10/14/2024 Pain in elbow 10/14/2024 Overview (10/14/2024): suspected osteoarthritis on eval 08/2021. Recurrent falls 10/14/2024 Overview (10/14/2024): [facility] 10/12/24 w/ XR concerning for possible Left distal Radial (non- displaced) fracture (and consider CT). Recurrent major depression in full remission 02/2025 History of artificial eye lens 07/31/2023 History of right cataract extraction 07/31/2023 Myopia of both eyes 06/22/2023 Presbyopia 06/22/2023 Regular astigmatism of both eyes 06/22/2023 Essential hypertension 05/29/2019 Atrial fibrillation 04/03/2018 Coronary artery calcification seen on CT scan Abnormal CT of the chest 12/19/2017 Thoracoabdominal aortic aneurysm (TAAA) 12/20/19 18 Resolved Problems Problem Noted Date Diagnosed Date Resolved Date Encounter for screening for lipoid disorders 4 10/20/2024 Encounters Date Type Department Care Team Description 12/29/2024 Telephone [facility] [address] Nancy Mora FNP Appointment Request from Last 3 Months Family History Medical [...] pur e alcohol) Quit drinking in 1990 [facility] Utilities Answer Date Recorded In the past 12 months has [employer] gas, oil, or water [employer] threatened to shut off services in your [...] any time in the past 12 m [facility], were you homeless or living in a long term (including now)? No 10/14/2024 Sex and Gender [...] A M CDT Height 179.1 cm (5' 10.5) 10/16/2024 7:51 AM CD T Body Mass Index 29.28 10/16/2024 7:51 AM CDT Plan of Treatment Upcoming Encounters Date Type Department Care Team (Late st Contact Info) Description 05/25/2025 1:45 PM GARMENT LINER Office Visit [facility] [address] [address] [place] [address] Nate Mix MD [facility] [address] [place], [place] [id number] Health Maintenance Due Date Last Done Comments DTaP, Tdap and Td Vaccines ( 1 - Tdap) 1964 Pneumococcal Vaccine: 50+ Years (1 of 2 - PCV) 1962 Zoster Vaccines (1 of 2) 1993 Annual [...] on patient's age to complete this topic Insurance AETNA [facility] AETNA [facility] Advance Directives * Full Code (Latest Code Status on File) Date Activated Date Inactivated Comments 10/14/2024 2:45 PM 10/19/2024 11:13 PM Care Teams Scientific Software Engineer Relationship Specialty Start Date End Date Nancy Mora FNP [address] [place] [address] PCP - General NURSE PRACTITIONER 02/06/25 Ever Kirby MD CARDIOVASCULAR DISEASE 03/13/17 Mirza Sepulveda MD INTERVENTIONAL CARDIOLOGY 12/10/17 Froylan Galvan MD Consulting Physician CLINICAL CARDIAC ELECTROPHYSIOLOGY 12/12/18 Evelyn Tenorio NP Referring Physician CARDIOVASCULAR DISEASE 01/22/19
--- OUTSIDE RECORDS SUMMARY | 2025-02-12 21:22 | XMS_ITS | Encounter Summary ---
Author Name [facility] [place] [facility] [place] Address [address] [place] [address] Care Team Providers Care Technical Sales Associate Name Role Phone SUKUMARGAGAN Primary Care Provider [...] Name Patient's Relationship to Policy Dickens AETNA [facility] (WNR) MEDICARE ADVANTAGE [facility] (WNR) Jul 09, 2018 [phone] SOO,PAKO IN PATIENT AETNA [facility] (WNR) MEDICARE ADVANTAGE [facility] (WNR) Jul 09, 2018 [id number] [phone] SOOGIDEONV IN PATIENT Selected Encounter This section includes the information on record at [place] for the Encounter. Date/Time Encounter Type Encounter Description Reason Provider Source Oct 16, 2024 05:24 PM Outpatient Encounter GENERAL INTERNAL MEDICINE JOHNNY BLOOM Encounter Template Text not used by [place] Plan of Treatment: Future Appointments (+ 6 months) and Future Tests (+/- 45 days) The Plan of Treatment section includes future care activities for the patient from all [place] treatmentfacilities. This section includes future appointments and future orders which are active, pending or scheduled. Future Appointments This section includes appointments that were scheduled to occur 6 months from the date of the Encounter, up to a maximum of 20 appointments. The data comes from all [place] treatment facilities. Appointment Date/Time Appointment Type Appointme nt Facility Name November 16, 2024 08:00 AM AMBULATORY - NONE [facility] December 01, 2024 10:00 AM AMBULATORY NONE [facility] December 03, 2024 10:[address] [facility] December 05, 2024 11:45 AM AMBULATORY - SURGERY MARIA VICTORIA CONSTANTINO [facility] Mar 24, 2025 10:00 AM AMBULATORY - MEDICINE [facility] Mar 24, 2025 10:01 AM AMBULATORY - MEDICINE [facility] Mar 24, 2025 11:00 AM AMBULATORY - NONE [facility] Lab Results: +/- 30 days of the encounter This section includes the Chemistry and Hematology Lab Results on record with [place] for the patient. Radiology Reports and Pathology Reports are provided separately, in subsequent sections. Lab Results This section contains the Chemistry/Hematology Results that were resulted 30 days before or 30 daysafter the date of the Encounter. Date/Time Source Result Type Result - Unit Interpretation Reference Range Specimen Type Comment November 11, 2024 06:48 AM [facility] MAGNESIUM PLASMA Specimen Type: PLASMA Comment: K result may show a positive bias due to hemolysis. Specimen slightly hemolyzed. Ordering Provider: CONNIE KOCH Report Released Date/Time: November 06, 2024 07:13 AM Reporting Lab: [facility] [address] [facility] [facility] [address] Performing Lab: [facility] [address] [facility] [address] MAGNESIUM 1.9 mg/dL 1.6-2.6 November 11, 2024 06:48 AM [facility] RENAL PANEL PLASMA Specimen Type: PLASM A Comment: K result may show a positive bias due to hemolysis. Specimen slightly hemolyzed. Ordering Provider: CONNIE KOCH Report Released Date/Time: November 06, 2024 07:13 AM Reporting Lab: [address] [address] Performing Lab: [address] [address] CREATININE 0.89 mg/dL 0.7-1.3 UREA NITROGEN 16.9 mg/dL 9.0-25.0 GLUCOSE 99 mg/dL 72-99 SODIUM 136 meq/L 136-145 POTASSIUM 4.3 meq/L 3.5-5 CHLORIDE 104 meq/L 98-107 CARBON DIOXIDE 25 meq/L 22-31 CALCIUM 8.8 mg/dL 8.4-10.4 PHOSPHOROUS 3.6 mg/dL 2.3-4.7 ALBUMIN 3.5 g/dL 3.4-5 EGFR (CKD-EPI 2020) 86.1 >60 November 11, 2024 06:48 AM [facility] CBC BLOOD Specimen Type: BLOOD No comment entered. Ordering Provider: CONNIE KOCH Report Released Date/Time: November 06, 2024 07:13 AM Reporting Lab: [address] [address] Performing Lab: [address] [address] WBC 9.2 10*3/uL 3.6-11.2 RBC 5.85 10*6/uL [...] 0.00-0. 20 November 10, 2024 06:51 AM [facility] MAGNESIUM PLASMA Specimen Type: PLASM A Comment: No hemolysis noted. Ordering Provider: CONNIE KOCH Report Released Date/Time: November 06, 2024 07:13 AM Reporting Lab: [facility] [address] [facility] [address] Performing Lab: [address] [address] MAGNESIUM 2.1 mg/dL 1.6-2.6 November 10, 2024 06:51 AM [facility] RENAL PANEL PLASMA Specimen Type: PLASM A Comment: No hemolysis noted. Ordering Provider: CONNIE KOCH Report Released Date/Time: November 06, 2024 07:13 AM Reporting Lab: [facility] [address] [facility] [address] Performing Lab: [address] [address] CREATININE 0.86 mg/dL 0.7-1.3 UREA NITROGEN 18.8 mg/dL 9.0-25.0 GLUCOSE 100 mg/dL H 72-99 SODIUM 137 meq/L 136-145 POTASSIUM 4.2 meq/L 3.5-5 CHLORIDE 104 meq/L 98-107 CARBON DIOXIDE 26 meq/L 22-31 CALCIUM 9.2 mg/dL 8.4-10.4 PHOSPHOROUS 3.6 mg/dL 2.3-4.7 ALBUMIN 3.8 g/dL 3.4-5 EGFR (CKD-EPI 2020) 87.0 >60 November 10, 2024 06:51 AM [facility] CBC BLOOD Specimen Type: BLOOD No comment entered. Ordering Provider: CONNIE KOCH Report Released Date/Time: November 06, 2024 07:13 AM Reporting Lab: [address] [address] Performing Lab: [facility] [address] [facility] [facility] [address] WBC 9.0 10*3/uL 3.6-11.2 RBC 5.85 10*6/uL [...] 0.00-0. 20 November 09, 2024 08:22 AM [facility] MAGNESIUM PLASMA Specimen Type: PLASM A Comment: No hemolysis noted. Ordering Provider: CONNIE KOCH Report Released Date/Time: November 06, 2024 07:13 AM Reporting Lab: [address] [address] Performing Lab: [address] [address] MAGNESIUM 2.1 mg/dL 1.6-2.6 November 09, 2024 08:22 AM [facility] RENAL PANEL PLASMA Specimen Type: PLASM A Comment: No hemolysis noted. Ordering Provider: CONNIE KOCH Report Released Date/Time: November 06, 2024 07:13 AM Reporting Lab: [address] [address] Performing Lab: [address] [address] CREATININE 0.86 mg/dL 0.7-1.3 UREA NITROGEN 18.6 mg/dL 9.0-25.0 GLUCOSE 87 mg/dL 72-99 SODIUM 138 meq/L 136-145 POTASSIUM 4.5 meq/L 3.5-5 CHLORIDE 104 meq/L 98-107 CARBON DIOXIDE 27 meq/L 22-31 CALCIUM 9.0 mg/dL 8.4-10.4 PHOSPHOROUS 3.2 mg/dL 2.3-4.7 ALBUMIN 3.5 g/dL 3.4-5 EGFR (CKD-EPI 2020) 87.0 >60 November 09, 2024 08:22 AM [facility] CBC BLOOD Specimen Type: BLOOD Comment: prev diff 11/07/24. Ordering Provider: CONNIE KOCH Report Released Date/Time: November 06, 2024 07:13 AM Reporting Lab: [facility] [address] [facility] [address] Performing Lab: [facility] [address] [facility] [address] WBC 10.7 10*3/uL 3.6-11.2 RBC 5.84 10*6/uL [...] 0.00-0. 20 November 08, 2024 09:04 AM [facility] MAGNESIUM PLASMA Specimen Type: PLASM A Comment: No hemolysis noted. Ordering Provider: CONNIE KOCH Report Released Date/Time: November 06, 2024 07:13 AM Reporting Lab: [facility] [address] [place] [address] Performing Lab: [address] [address] MAGNESIUM 1.9 mg/dL 1.6-2.6 November 08, 2024 09:04 AM [facility] RENAL PANEL PLASMA Specimen Type: PLASM A Comment: No hemolysis noted. Ordering Provider: CONNIE KOCH Report Released Date/Time: November 06, 2024 07:13 AM Reporting Lab: [address] [address] Performing Lab: [address] [address] CREATININE 0.86 mg/dL 0.7-1.3 UREA NITROGEN 17.8 mg/dL 9.0-25.0 GLUCOSE 141 mg/dL H 72-99 SODIUM 137 meq/L 136-145 POTASSIUM 4.4 meq/L 3.5-5 CHLORIDE 103 meq/L 98-107 CARBON DIOXIDE 26 meq/L 22-31 CALCIUM 8.9 mg/dL 8.4-10.4 PHOSPHOROUS 3.2 mg/dL 2.3-4.7 ALBUMIN 3.6 g/dL 3.4-5 EGFR (CKD-EPI 2020) 87.0 >60 November 08, 2024 09:04 AM [facility] CBC BLOOD Specimen Type: BLOOD No comment entered. Ordering Provider: CONNIE KOCH Report Released Date/Time: November 06, 2024 07:13 AM Reporting Lab: [address] [address] Performing Lab: [address] [address] WBC 10.1 10*3/uL 3.6-11.2 RBC 5.77 10*6/uL [...] 0.00-0. 20 November 07, 2024 06:52 AM [facility] MAGNESIUM PLASMA Specimen Type: PLASM A Comment: No hemolysis noted. Ordering Provider: CONNIE KOCH Report Released Date/Time: November 06, 2024 07:13 AM Reporting Lab: [address] [address] Performing Lab: [address] [address] MAGNESIUM 2.0 mg/dL 1.6-2.6 November 07, 2024 06:52 AM [facility] RENAL PANEL PLASMA Specimen Type: PLASM A Comment: No hemolysis noted. Ordering Provider: CONNIE KOCH Report Released Date/Time: November 06, 2024 07:13 AM Reporting Lab: [address] [address] Performing Lab: [address] [address] CREATININE 1.00 mg/dL 0.7-1.3 UREA NITROGEN 19.3 mg/dL 9.0-25.0 GLUCOSE 123 mg/dL H 72-99 SODIUM 138 meq/L 136-145 POTASSIUM 4.7 meq/L 3.5-5 CHLORIDE 102 meq/L 98-107 CARBON DIOXIDE 27 meq/L 22-31 CALCIUM 8.9 mg/dL 8.4-10.4 PHOSPHOROUS 4.1 mg/dL 2.3-4.7 ALBUMIN 3.8 g/dL 3.4-5 EGFR (CKD-EPI 2020) 75.6 >60 November 07, 2024 06:52 AM [facility] CBC BLOOD Specimen Type: BLOOD No comment entered. Ordering Provider: CONNIE KOCH Report Released Date/Time: November 06, 2024 07:13 AM Reporting Lab: [facility] [address] [address] Performing Lab: [address] [address] WBC 12.6 10*3/uL H 3.6-11.2 RBC 5.50 [...] H 2.10-8.00 November 07, 2024 06:35 AM [facility] DIGOXIN PLASMA Specimen Type: PLASM A No comment entered. Ordering Provider: CONNIE KOCH Report Released Date/Time: November 07, 2024 08:41 AM Reporting Lab: [address] [address] Performing Lab: [address] [address] DIGOXIN <0.15 ng/mL L 0.8-2 November 06, 2024 07:05 AM [facility] MAGNESIUM PLASMA Specimen Type: PLASM A Comment: No hemolysis noted. Ordering Provider: MICH RAMIREZ Report Released Date/Time: Nov 05, 2024 11:04 PM Reporting Lab: [address] [address] Performing Lab: [address] [address] MAGNESIUM 1.9 mg/dL 1.6-2.6 November 06, 2024 07:05 AM [facility] RENAL PANEL PLASMA Specimen Type: PLASM A Comment: No hemolysis noted. Ordering Provider: IMCH RAMIREZ Report Released Date/Time: Nov 05, 2024 11:04 PM Reporting Lab: [address] [address] Performing Lab: [address] [address] CREATININE 0.88 mg/dL 0.7-1.3 UREA NITROGEN 18.0 mg/dL 9.0-25.0 GLUCOSE 101 mg/dL H 72-99 SODIUM 136 meq/L 136-145 POTASSIUM 4.1 meq/L 3.5-5 CHLORIDE 99 meq/L 98-107 CARBON DIOXIDE 30 meq/L 22-31 CALCIUM 8.8 mg/dL 8.4-10.4 PHOSPHOROUS 4.1 mg/dL 2.3-4.7 ALBUMIN 3.1 g/dL L 3.4-5 EGFR (CKD-EPI 2020) 86.4 >60 November 06, 2024 07:05 AM [facility] CBC BLOOD Specimen Type: BLOOD No comment entered. Ordering Provider: MICH RAMIREZ Report Released Date/Time: Nov 05, 2024 11:04 PM Reporting Lab: [place] [address] [facility] [address] Performing Lab: [address] [address] WBC 10.3 10*3/uL 3.6-11.2 RBC 5.27 10*6/uL [...] 0.00-0. 20 November 06, 2024 03:00 AM [facility] MRSA SURVL NARES DNA NARES [...] Nov 05, 2024 06:43 PM Reporting Lab: [address] [address] Performing Lab: [address] [address] MRSA SURVL NARES DNA Negative Negative Nov 05, 2024 08:34 PM [facility] MAGNESIUM PLASMA Specimen Type: PLASM A Comment: No hemolysis noted. Ordering Provider: IRON TAFOYA Report Released Date/Time: Nov 05, 2024 06:43 PM Reporting Lab: [address] [address] Performing Lab: [place] [phone] MAGNESIUM 1.9 mg/dL 1.6-2.6 Nov 05, 2024 08:34 PM [facility] PHOSPHOROUS PLASMA Specimen Type: PLASM A Comment: No hemolysis noted. Ordering Provider: IRON TAFOYA Report Released Date/Time: Nov 05, 2024 06:43 PM Reporting Lab: [address] [address] Performing Lab: [address] [address] PHOSPHOROUS 3.7 mg/dL 2.3-4.7 Nov 05, 2024 08:34 PM [facility] CBC BLOOD Specimen Type: BLOOD No comment entered. Ordering Provider: IRON TAFOYA Report Released Date/Time: Nov 05, 2024 06:43 PM Reporting Lab: [address] [address] Performing Lab: [address] [address] WBC 11.1 10*3/uL 3.6-11.2 RBC 5.73 10*6/uL [...] 0.00-0. 20 Nov 05, 2024 08:34 PM [facility] COMPREHENSIVE METABOLIC PANEL PLASMA Specimen Type: PLASMA Comment: No hemolysis noted. Ordering Provider: IRON TAFOYA Report Released Date/Time: Nov 05, 2024 06:43 PM Reporting Lab: [address] [address] Performing Lab: [address] [address] CREATININE 1.02 mg/dL 0.7-1.3 UREA NITROGEN 19.8 [...] U/L 8-40 EGFR (CKD-EPI 2020) 73.8 >60 Social History: Smoking Status (Most current) and Tobacco Use (All prior to encounter date) This section includes the most current, and the historical, smoking and tobacco- related health factors from the [place] facility where the Encounter took place. Current Smoking Status This section includes the most current smoking, or tobacco-related health factor, from the [place] facility where the Encounter took place. Date/Time Current Smoking Status Comment Nuzhat bennett Oct 17, 2022 02:55 PM ORYX ADMIT TOBACCO SCREEN REFUSED [facility] Advance Directives: All historical and current Section Date Range: From patient's date of to the date document was created. This section includes ALL of a patient's completed or amended [place] Advance and Rescinded Directives. The entries below indicate that a directive exists for the patient, but an actual copy is not included with this document. The data comes from all [place] facilities. Date Advance Directives Provider Source Nov 03, 2022 ADVANCE DIRECTIVE DISCUSSION GIACOMO RAMIREZ [facility] Oct 30, 2022 ADVANCE DIRECTIVE ALEKSANDAR GRANADO Encounter Notes: All associated encounter notes This section contains the clinical notes associated to the Encounter. Date/Time Encounter Note(s) Provider Source Oct 14, 2024 05:24 PM NONVA NOTE: LOCAL TITLE: [facility]UNITY CARE-[facility] SELF PRESENTING CARE COORD PLAN STANDARD TITLE: NONVA NOTE DATE OF NOTE: OCT 14, 2024@17:24 ENTRY DATE: OCT 16, 2024@17:24:45 AUTHOR: JOHNNY BLOOM EXP COSIGNER: URGENCY: STATUS: COMPLETED COMMUNITY CARE-[facility] SELF PRESENTING CARE COORD PLAN 657 STL Has ADDENDA Emergency Notification Intake Date Presenting to the Facility: Oct Method of Contact: Notified from [employer] worklist Notification ID: [id number] [facility] Referral #: [id number] [facility] Name: Hospital: [place] Address: [address] [place] [address], City: [facility] State: [place] [address] Zip Code: Phone : [facility] Point of Contact: Name: Phone: Chief complaint: fall Primary Diagnosis: Disposition Admitted Route of Admission: Direct Admit Date of Admission: Oct Admitting Diagnosis: 48.91 Atrial Fibrillation Community Care Provider: Confirm Level of Care: [facility] [facility], ER notes showed left radial fracture, foudn to have A-Fib RVR /rody/ JOHNNY FERNANDES, RN REGISTERED NURSE Signed: 10/16/2024 17:29 10/16/2024 ADDENDUM STATUS: COMPLETED CONTINUED STAY REVIEW Contact Date: Oct Date of Admission: Oct Date of Procedure: Facility Name: [facility] Inpatient level of care required: Medicine DC Home soon to live with family requesting HH and chore workers in home /rody/ JOHNNY FERNANDES, RN REGISTERED NURSE Signed: 10/16/2024 17:33 10/20/2024 ADDENDUM STATUS: COMPLETED Discharge Disposition Date of discharge: Oct Disposition Discharge to Home with home health care ADM: 10/14/2024 12:58 PM CDT - 10/19/2024 9:13 PM CDT . Hospital/discharge Summary (per discharge note): 79-year-old male with a past medical history significant for BPH, paroxysmal afib, asthma, GERD, TAA, CAD, who presented with atrial fibrillation with RVR. 10/19: Heart rate stable now. On oral Lasix and oral metoprolol and oral digoxin. Cardiology/EP signed off and cleared for discharge. Patient is alert and oriented to himself and year answers yes or no questions but is hard of hearing. Sodium 132, white cell count down to 7.97. Patient denies any pain currently or shortness of breath. Outpatient workup and follow-up with primary care physician and [facility] and neurology as outpatient Important Medication Changes: Start - refer to JLV Stop - refer to JLV Changes - refer to JLV *Medication reconciliation needed* Post-Discharge Needs PACT: [place] 1) [facility] PCP follow up ? YES PACT ? Please place the below consults: neurology [facility] ([facility] or [facility] internal consults needed for ALL follow up care) Please make addendum confirming consult placement for follow-up care DC Summary and relevant records received via Right[employer]ax. Scanned into CPRS. Alerting [facility]-PCP team to this note for care management. Records shared securely with PCP TEAM SABINO. /rody/ DENA SERRANO, RN REGISTERED NURSE Signed: 10/20/2024 16:42 JOHNNY BLOOM [facility]
--- OUTSIDE RECORDS SUMMARY | 2025-02-12 21:22 | XMS_ITS | Encounter Summary ---
Author Name [facility] [place] Organization [facility] Address [address] [place] [address] Care Team Providers Care Dairy Equipment Specialist Name Role Phone SUKUMARGAGAN Primary Care [...] Dickens's Name Patient's Relationship to Policy [facility] (R) Jul 09, 2018 [id number] SOO,PAKO IN PATIENT [facility]) [facility] Jul 09, 2018 [id number] SOO,PAKO IN PATIENT Selected Encounter This section includes the information on record at [place] for the Encounter. Date/Time Encounter Type Encounter [...] this document. The data comes from all [place] facilities. Date Advance Directives Provider Source Nov 03, 2022 ADVANCE DIRECTIVE DISCUSSION GIACOMO RAMIREZ [facility] Oct 30, 2022 ADVANCE DIRECTIVE ALEKSANDAR GRANADO [facility]
--- OUTSIDE RECORDS SUMMARY | 2025-02-12 21:22 | XMS_ITS | Encounter Summary ---
Author Name [facility] Organization [facility] Address [address] [place] [address] Care Team Providers Care Electronic Repair Troubleshooter Name Role Phone SUKUMARGAGAN Primary Care Provider [...] Name Patient's Relationship to Policy Dickens [employer]ETNA [facility] (WNR) MEDICARE ADVANTAGE [facility] (WNR) Jul 09, 2018 [id number] [place] [id number] SOO,PAKO IN PATIENT [employer] [facility] (WNR) MEDICARE ADVANTAGE [facility] (WNR) Jul 09, 2018 [id number] [place] [id number] SOO,PAKO IN PATIENT Selected Encounter This section includes the information on record at [place] for the Encounter. Date/Time Encounter Type Encounter Description Reason Provider Source November 07, 2024 08:35 AM SELF CARE MNGMENT TRAINING OCCUPATIONAL THERAPY ICD-10-CM F03.90 Unsp dementia, unsp severity, without beh/psych/moo d/anx ZORAN ALLEN IHE Encounter Template Text not used by [place] Assessments - Encounter Diagnoses This section includes the primary and secondary diagnoses documented for the Encounter. Date/Time Primary/Secondary Diagnosis Diagnosis Name Provider Source November 07, 2024 10:47 AM PRIMARY Unsp dementia, unsp severity, without beh/psych/mood/a nx ZORAN ALLEN [facility] Plan of Treatment: Future Appointments (+ 6 months) and Future Tests (+/- 45 days) The Plan of Treatment section includes future care activities for the patient from all [place] treatmentfacilities. This section includes future appointments and future orders which are active, pending or scheduled. Future Appointments This section includes appointments that were scheduled to occur 6 months from the date of the Encounter, up to a maximum of 20 appointments. The data comes from all [place] treatment facilities. Appointment Date/Time Appointment Type Appointme nt Facility Name November 16, 2024 08:00 AM AMBULATORY - NONE [facility] December 01, 2024 10:00 AM AMBULATORY - NONE [facility] December 03, 2024 10:00 AM AMBULATORY - [facility] December 05, 2024 11:45 AM AMBULATORY - SURGERY [facility] Mar 24, 2025 10:00 AM AMBULATORY - MEDICINE [facility] Mar 24, 2025 10:01 AM AMBULATORY - MEDICINE [facility] Mar 24, 2025 11:00 AM AMBULATORY - NONE [facility] Lab Results: +/- 30 days of the encounter This section includes the Chemistry and Hematology Lab Results on record with [place] for the patient. Radiology Reports and Pathology Reports are provided separately, in subsequent sections. Lab Results This section contains the Chemistry/Hematology Results that were resulted 30 days before or 30 daysafter the date of the Encounter. Date/Time Source Result Type Result - Unit Interpretation Reference Range Specimen Type Comment November 11, 2024 06:48 AM [facility] MAGNESIUM PLASMA Specimen Type: PLASMA Comment: K result may show a positive bias due to hemolysis. Specimen slightly hemolyzed. Ordering Provider: CONNIE KOCH Report Released Date/Time: November 06, 2024 07:13 AM Reporting Lab: [facility] [address] [facility] [address] Performing Lab: [facility] [address] [place] [address] MAGNESIUM 1.9 mg/dL 1.6-2.6 November 11, 2024 06:[address] [facility] RENAL PANEL PLASMA Specimen Type: PLASM A Comment: K result may show a positive bias due to hemolysis. Specimen slightly hemolyzed. Ordering Provider: CONNIE KOCH Report Released Date/Time: November 06, 2024 07:13 AM Reporting Lab: [address] [address] Performing Lab: [address] [address] CREATININE 0.89 mg/dL 0.7-1.3 UREA NITROGEN 16.9 mg/dL 9.0-25.0 GLUCOSE 99 mg/dL 72-99 SODIUM 136 meq/L 136-145 POTASSIUM 4.3 meq/L 3.5-5 CHLORIDE 104 meq/L 98-107 CARBON DIOXIDE 25 meq/L 22-31 CALCIUM 8.8 mg/dL 8.4-10.4 PHOSPHOROUS 3.6 mg/dL 2.3-4.7 ALBUMIN 3.5 g/dL 3.4-5 EGFR (CKD-EPI 2020) 86.1 >60 November 11, 2024 06:48 AM [facility] CBC BLOOD Specimen Type: BLOOD No comment entered. Ordering Provider: CONNIE KOCH Report Released Date/Time: November 06, 2024 07:13 AM Reporting Lab: [address] [address] Performing Lab: [address] [address] WBC 9.2 10*3/uL 3.6-11.2 RBC 5.85 10*6/uL [...] 0.00-0. 20 November 10, 2024 06:[address] [facility] MAGNESIUM PLASMA Specimen Type: PLASM A Comment: No hemolysis noted. Ordering Provider: CONNIE KOCH Report Released Date/Time: November 06, 2024 07:13 AM Reporting Lab: [address] [address] Performing Lab: [address] [address] MAGNESIUM 2.1 mg/dL 1.6-2.6 November 10, 2024 06:[address] [facility] RENAL PANEL PLASMA Specimen Type: PLASM A Comment: No hemolysis noted. Ordering Provider: CONNIE KOCH Report Released Date/Time: November 06, 2024 07:13 AM Reporting Lab: [address] [address] Performing Lab: [address] [address] CREATININE 0.86 mg/dL 0.7-1.3 UREA NITROGEN 18.8 mg/dL 9.0-25.0 GLUCOSE 100 mg/dL H 72-99 SODIUM 137 meq/L 136-145 POTASSIUM 4.2 meq/L 3.5-5 CHLORIDE 104 meq/L 98-107 CARBON DIOXIDE 26 meq/L 22-31 CALCIUM 9.2 mg/dL 8.4-10.4 PHOSPHOROUS 3.6 mg/dL 2.3-4.7 ALBUMIN 3.8 g/dL 3.4-5 EGFR (CKD-EPI 2020) 87.0 >60 November 10, 2024 06:51 AM [facility] CBC BLOOD Specimen Type: BLOOD No comment entered. Ordering Provider: CONNIE KOCH Report Released Date/Time: November 06, 2024 07:13 AM Reporting Lab: [facility] [address] [facility] [address] Performing Lab: [facility] [address] [facility] [address] WBC 9.0 10*3/uL 3.6-11.2 RBC 5.85 10*6/uL [...] 0.00-0. 20 November 09, 2024 08:[address] [facility] MAGNESIUM PLASMA Specimen Type: PLASM A Comment: No hemolysis noted. Ordering Provider: CONNIE KOCH Report Released Date/Time: November 06, 2024 07:13 AM Reporting Lab: [facility] [address] [facility] [address] Performing Lab: [address] [address] MAGNESIUM 2.1 mg/dL 1.6-2.6 November 09, 2024 08:[address] [facility] RENAL PANEL PLASMA Specimen Type: PLASM A Comment: No hemolysis noted. Ordering Provider: CONNIE KOCH Report Released Date/Time: November 06, 2024 07:13 AM Reporting Lab: [address] [address] Performing Lab: [address] [address] CREATININE 0.86 mg/dL 0.7-1.3 UREA NITROGEN 18.6 mg/dL 9.0-25.0 GLUCOSE 87 mg/dL 72-99 SODIUM 138 meq/L 136-145 POTASSIUM 4.5 meq/L 3.5-5 CHLORIDE 104 meq/L 98-107 CARBON DIOXIDE 27 meq/L 22-31 CALCIUM 9.0 mg/dL 8.4-10.4 PHOSPHOROUS 3.2 mg/dL 2.3-4.7 ALBUMIN 3.5 g/dL 3.4-5 EGFR (CKD-EPI 2020) 87.0 >60 November 09, 2024 08:22 AM [facility] CBC BLOOD Specimen Type: BLOOD Comment: prev diff 11/07/24. Ordering Provider: CONNIE KOCH Report Released Date/Time: November 06, 2024 07:13 AM Reporting Lab: [address] [address] Performing Lab: [address] [address] WBC 10.7 10*3/uL 3.6-11.2 RBC 5.84 10*6/uL [...] 0.00-0. 20 November 08, 2024 09:[address] [facility] MAGNESIUM PLASMA Specimen Type: PLASM A Comment: No hemolysis noted. Ordering Provider: CONNIE KOCH Report Released Date/Time: November 06, 2024 07:13 AM Reporting Lab: [address] [address] Performing Lab: [address] [address] MAGNESIUM 1.9 mg/dL 1.6-2.6 November 08, 2024 09:[address] [facility] RENAL PANEL PLASMA Specimen Type: PLASM A Comment: No hemolysis noted. Ordering Provider: CONNIE KOCH Report Released Date/Time: November 06, 2024 07:13 AM Reporting Lab: [address] [address] Performing Lab: [address] [address] CREATININE 0.86 mg/dL 0.7-1.3 UREA NITROGEN 17.8 mg/dL 9.0-25.0 GLUCOSE 141 mg/dL H 72-99 SODIUM 137 meq/L 136-145 POTASSIUM 4.4 meq/L 3.5-5 CHLORIDE 103 meq/L 98-107 CARBON DIOXIDE 26 meq/L 22-31 CALCIUM 8.9 mg/dL 8.4-10.4 PHOSPHOROUS 3.2 mg/dL 2.3-4.7 ALBUMIN 3.6 g/dL 3.4-5 EGFR (CKD-EPI 2020) 87.0 >60 November 08, 2024 09:04 AM [facility] CBC BLOOD Specimen Type: BLOOD No comment entered. Ordering Provider: CONNIE KOCH Report Released Date/Time: November 06, 2024 07:13 AM Reporting Lab: [facility] [address] [facility] [address] Performing Lab: [place] [address] [facility] [address] WBC 10.1 10*3/uL 3.6-11.2 RBC 5.77 10*6/uL [...] 0.00-0. 20 November 07, 2024 06:[address] [facility] MAGNESIUM PLASMA Specimen Type: PLASM A Comment: No hemolysis noted. Ordering Provider: CONNIE KOCH Report Released Date/Time: November 06, 2024 07:13 AM Reporting Lab: [place] [id number] [facility] [address] Performing Lab: [address] [address] MAGNESIUM 2.0 mg/dL 1.6-2.6 November 07, 2024 06:[address] [facility] RENAL PANEL PLASMA Specimen Type: PLASM A Comment: No hemolysis noted. Ordering Provider: CONNIE KOCH Report Released Date/Time: November 06, 2024 07:13 AM Reporting Lab: [facility] [address] [facility] [address] Performing Lab: [address] [address] CREATININE 1.00 mg/dL 0.7-1.3 UREA NITROGEN 19.3 mg/dL 9.0-25.0 GLUCOSE 123 mg/dL H 72-99 SODIUM 138 meq/L 136-145 POTASSIUM 4.7 meq/L 3.5-5 CHLORIDE 102 meq/L 98-107 CARBON DIOXIDE 27 meq/L 22-31 CALCIUM 8.9 mg/dL 8.4-10.4 PHOSPHOROUS 4.1 mg/dL 2.3-4.7 ALBUMIN 3.8 g/dL 3.4-5 EGFR (CKD-EPI 2020) 75.6 >60 November 07, 2024 06:52 AM [facility] CBC BLOOD Specimen Type: BLOOD No comment entered. Ordering Provider: CONNIE KOCH Report Released Date/Time: November 06, 2024 07:13 AM Reporting Lab: [address] [address] Performing Lab: [address] [address] WBC 12.6 10*3/uL H 3.6-11.2 RBC 5.50 [...] H 2.10-8.00 November 07, 2024 06:[address] [facility] DIGOXIN PLASMA Specimen Type: PLASM A No comment entered. Ordering Provider: CONNIE KOCH Report Released Date/Time: November 07, 2024 08:41 AM Reporting Lab: [facility] [address] [facility] [address] Performing Lab: [address] [address] DIGOXIN <0.15 ng/mL L 0.8-2 November 06, 2024 07:[address] [facility] MAGNESIUM PLASMA Specimen Type: PLASM A Comment: No hemolysis noted. Ordering Provider: MICH RAMIREZ Report Released Date/Time: Nov 05, 2024 11:04 PM Reporting Lab: [facility] [address] [facility] [address] Performing Lab: [address] [address] MAGNESIUM 1.9 mg/dL 1.6-2.6 November 06, 2024 07:[address] [facility] RENAL PANEL PLASMA Specimen Type: PLASM A Comment: No hemolysis noted. Ordering Provider: MICH RAMIREZ Report Released Date/Time: Nov 05, 2024 11:04 PM Reporting Lab: [facility] [address] [facility] [address] Performing Lab: [facility] [address] [facility] [address] CREATININE 0.88 mg/dL 0.7-1.3 UREA NITROGEN 18.0 mg/dL 9.0-25.0 GLUCOSE 101 mg/dL H 72-99 SODIUM 136 meq/L 136-145 POTASSIUM 4.1 meq/L 3.5-5 CHLORIDE 99 meq/L 98-107 CARBON DIOXIDE 30 meq/L 22-31 CALCIUM 8.8 mg/dL 8.4-10.4 PHOSPHOROUS 4.1 mg/dL 2.3-4.7 ALBUMIN 3.1 g/dL L 3.4-5 EGFR (CKD-EPI 2020) 86.4 >60 November 06, 2024 07:[address] [facility] CBC BLOOD Specimen Type: BLOOD No comment entered. Ordering Provider: MICH RAMIREZ Report Released Date/Time: Nov 05, 2024 11:04 PM Reporting Lab: [facility] [address] [facility] [address] Performing Lab: [place] [address] [facility] [address] WBC 10.3 10*3/uL 3.6-11.2 RBC 5.27 10*6/uL [...] 0.00-0. 20 November 06, 2024 03:[address] [facility] MRSA SURVL NARES DNA NARES [...] Nov 05, 2024 06:43 PM Reporting Lab: [facility] [address] [facility] [address] Performing Lab: [facility] [address] [place] [address] MRSA SURVL NARES DNA Negative Negative Nov 05, 2024 08:[address] [facility] MAGNESIUM PLASMA Specimen Type: PLASM A Comment: No hemolysis noted. Ordering Provider: IRON TAFOYA Report Released Date/Time: Nov 05, 2024 06:43 PM Reporting Lab: [address] [address] Performing Lab: [address] [address] MAGNESIUM 1.9 mg/dL 1.6-2.6 Nov 05, 2024 08:[address] [facility] PHOSPHOROUS PLASMA Specimen Type: PLASM A Comment: No hemolysis noted. Ordering Provider: IRON TAFOYA Report Released Date/Time: Nov 05, 2024 06:43 PM Reporting Lab: [facility] [address] [place] [address] Performing Lab: [facility] [address] [place] [address] PHOSPHOROUS 3.7 mg/dL 2.3-4.7 Nov 05, 2024 08:[address] [facility] COMPREHENSIVE METABOLIC PANEL PLASMA Specimen Type: PLASMA Comment: No hemolysis noted. Ordering Provider: IRON TAFOYA Report Released Date/Time: Nov 05, 2024 06:43 PM Reporting Lab: [address] [address] Performing Lab: [facility] [address] [place] [address] CREATININE 1.02 mg/dL 0.7-1.3 UREA NITROGEN 19.8 [...] 73.8 >60 Nov 05, 2024 08:34 PM [facility] CBC BLOOD Specimen Type: BLOOD No comment entered. Ordering Provider: IRON TAFOYA Report Released Date/Time: Nov 05, 2024 06:43 PM Reporting Lab: [facility] [address] [facility] [address] Performing Lab: [address] [address] WBC 11.1 10*3/uL 3.6-11.2 RBC 5.73 10*6/uL [...] Source November 07, 2024 11:16 PM 0 [facility] November 07, 2024 09:00 PM 109 [facility] November 07, 2024 08:40 PM 98.1 97 144/99 19 100 [facility] November 07, 2024 03:03 PM 98.6 106 111/78 20 97 [facility] November 07, 2024 12:26 PM 98.9 79 110/65 20 97 [facility] Social History: Smoking Status (Most current) and Tobacco Use (All prior to encounter date) This section includes the most current, and the historical, smoking and tobacco- related health factors from the [place] facility where the Encounter took place. Current Smoking Status This section includes the most current smoking, or tobacco-related health factor, from the [place] facility where the Encounter took place. Date/Time Current Smoking Status Comment Nuzhat bennett Oct 17, 2022 02:55 PM ORYX ADMIT TOBACCO SCREEN REFUSED [facility] Advance Directives: All historical and current Section Date Range: From patient's date of to the date document was created. This section includes ALL of a patient's completed or amended [place] Advance and Rescinded Directives. The entries below indicate that a directive exists for the patient, but an actual copy is not included with this document. The data comes from all [place] facilities. Date Advance Directives Provider Source Nov 03, 2022 ADVANCE DIRECTIVE DISCUSSION GIACOMO RAMIREZ [facility] Oct 30, 2022 ADVANCE DIRECTIVE ALEKSANDAR GRANADO Encounter Notes: All associated encounter notes This section contains the clinical notes associated to the Encounter. Date/Time Encounter Note(s) Provider Source November 07, 2024 08:35 AM OCCUPATIONAL MEDIC INE CONSULT: LOCAL TITLE: OT CONSULT STL STANDARD TITLE: OCCUPATIONAL MEDICINE CONSULT DATE OF NOTE: NOVEMBER 07, 2024@08:35 ENTRY DATE: NOVEMBER 07, 2024@10:37:34 AUTHOR: ZORAN ALLEN EXP COSIGNER: URGENCY: STATUS: COMPLETED Initial Occupational Therapy Note General Date of initiation of treatment: NOVEMBER 07, 2024 Requesting Provider: Connie Koch Treatment visit #: 1 Refusals: 0 Diagnosis: Unspecified dementia, unspecified severity, without behavioral disturbance, psychotic disturbance, mood disturbance, and anxiety(ICD-10-CM F03.90) Order/Precautions: Standard, sitter (elopement risk) Treatment Time: 835-03 17 minutes OT eval, 8 mins self-care Reach by Vocera/Teams -Other people involved in treatment []None [x]Included: Sitter in room for part of session Reason for Admission: 79 y/o male admitted to following recent hospitalization 2/2 fall with vet returning home, then having increased behaviors resulting in family requesting placement. PMHx: 1) Dementia with behavioral disturbance 2) COVID-19 3) Hypertonic bladder 4) Hearing loss 5) Atrial fibrillation 6) Pain in finger of left hand 7) History of arthroplasty of left knee 8) Pain of left shoulder joint 9) Agitation in dementia Prior Level of Function: Vet reports being Ind/Ind with device with all ADL tasks prior to recent hospitalization. Per chart, vet required 24/7 Supervision prior to hospitalization with complete IADL assist and A&Ox2 at baseline. HOME ENVIRONMENT Lives with: Family House Type: 1 story home Stairs: 2 TREVON Shower: unknown Toilet: unknown Ambulation device:none IADLs: dependent for all Driving: states he drives but has no car Medication management: dependent Additional Equipment: none Falls: per chart, multiple in last 3 months. per vet, none. Pain: none Vitals: BP HR O2 pre activity: 105/62 81 98% RA -nurse aware of vitals Leonardo's personal goals are: none stated SUBJECTIVE: I have problems remembering things but everyone does at my age. OBJECTIVE: agreeable to OT session upon arrival COGNITION: POOR. Unaware of situation and believes to be fully independent. Oriented to: A&o1, person. not situation, location, or year. Short Blessed Test: Declined 0-4: Normal Cognition 5-9: Questionable Impairment 10+: Impairment Consistent with Dementia Vision/Hearing: [place], requries repeated words and increased volume ROM: BUE WFL MMT: BUE grossly 5/5. Noted tremor in B hands with dressing SENSATION: states no deficits. SITTING BALANCE/Standing Balance: Sitting- Normal: Able to maintain balance against maximal resistance Standing- Normal Static: Patient able to maintain steady balance without handhold support Dynamic: Patient accepts maximal challenge and can shift weight easily within full range in all directions Tone/Edema/other: none Endurance: Vet with good endurance. IRF-HUNTER Section GG Self-Care and Mobility AZEVEDO: 6: Independent, 5: Setup or Cleanup Assistance. 4: Supervision or Touching Assistance. 3: Partial/Moderate Assistance. 2: Substantial/Maximal Assistance. 1: Dependent. 07: Refused. 09: Not Applicable-Did not perform this activity prior. 10: Not Attempted-Due to environmental limitations. 88: Not Attempted-Due to medical condition/safety concerns. SELF-CARE Initial/DC Date: NOVEMBER 07, 2024 Eating: - Oral Hygiene: - Toilet Hygiene: 4 Wash Upper Body: - Shower/Bathe Self: - UB Dressin LB Dressin Geovany/Doff Footwear: 4 Comments: Vet completed all toileting and dressing with SUPERVISION overall due to fall risk and cognitive deficits. No use of AE throughout. Edcuated on sitting during tasks while dressing to decrease fall risk. MOBILITY Roll L+R: - Sit to Lying: - Lying to Sitting EOB: - Sit to Stand: 4 Chair/Bed to Chair Tx: 4 Toilet Transfer: 4 Comments: All mobility with Superivision due to cognition and fall risk. No AE used throughout. Education Leonardo educated on purpose/benefits of OT, transfer safety, and self-care strategies. Vet was ready to learn and demonstrated a FAIR understanding of instructions given. Leonardo was informed of the purpose and benefit of OT. Leonardo educated on activity recommendations while in hospital. 1:1 instruction in equipment issued and/or home exercise program as noted above. Equipment/Instructions: none ASSESSMENT: 79 y/o male admitted to following recent hospitalization 2/2 fall with vet returning home, then having increased behaviors resulting in family requesting placement. Vet reports being Ind/Ind with device with all ADL tasks prior to recent hospitalization. Per chart, vet required 24/7 Supervision prior to hospitalization with complete IADL assist and A&Ox2 at baseline. Vet currently presents at baseline level for ADL tasks and mobility during. Vet A&Ox1 this date and presents with continued cognitive deficts similar to baseline. If family unable to provide 24/7 Supervision at home with IADL assist, then vesoren will benefit from placement. Ken was seen for 1 visit to complete consult. No further skilled acute OT services indicated at this time. Skilled care at a halfway is not recommended, thus OT notes will not be required for correction care. Rehab Potential: _X_ POOR- Limited potential for improvement.* __ GUARDED- There exists a question of the potential for improvement secondary to any of the above questions.* __ FAIR- Presents with the potential to improve in some areas while other deficits may remain unchanged.* __ GOOD- Presents with the potential to improve to a level of functional independence, though may continue to demonstrate certain minimal limitations. __ EXCELLENT- Presents with the potential to fully recover with no residual deficits. Barriers to achieving goals: [X] -None [] -Impaired pain tolerance [] -Progressive nature of disease [] -Complexities/conditions/cir cumstances that may impact treatment [] -Cognition [] -'s willingness to participate [] -Home environment: [] -Support of family/friends to assist DISCHARGE RECOMMENDATION: []Low Intensity Inpatient Rehabilitation []Comprehensive Inpatient Rehabilitation []24/7 Care - provided by facility or family; no therapy needs [X]24/7 Supervision either from family or facility including complete IADL assist. []Home with []No further needs []Home Health OT []Prior Level of Assist []Outpatient OT []Assist for IADLs []Physiatry Consult to Outpatient PMR Service []Other: PLAN: Ken was seen for 1 visit to complete consult. No further skilled acute OT services indicated at this time. If this is the last OT intervention then this documentation serves at the discharge Note as well. Occupational Profile and History [x] Brief (low) [] Expanded (moderate) [] Extensive (high) Performance deficits identified: [] ADLs [] IADLs [] Functional mobility [] Range of motion [] Muscle Strength [] Functional Endurance [] Functional Balance [] Fine motor coordination [] Adaptive equipment needs [x] Cognition [] Coping skills [] Interpersonal interaction/relationships [] Self-Image [] Other (please specify: ___) Azevedo: 1-3 performance deficits = Low complexity 3-5 performance deficits = moderate complexity 5 or more performance deficits = high complexity Level of Clinical Decision Making [x] problem-focused assessment (low) [] detailed assessment (medium) [] comprehensive assessment (high) --Therefore the level of complexity of this patient was: [x] Low [] Moderate [] High *Clinical reminder* Learning Assessment: Patient/Caregiver appeared ready for instruction (good eye contact, appropriate questions, active participation, etc.) Person(s) who received education: Patient Education Topic/Teaching Needs: Rehabilitation and Habilitation OT Process, DC recs Methods used included: Oral: verbal Teaching outcomes: Poor level of understanding /rody/ Zoran HARO R/L, CSRS Doctor of Occupational Therapy Signed: 11/07/2024 10:47 ZORAN ALLEN [facility]
--- OUTSIDE RECORDS SUMMARY | 2025-02-12 21:23 | XMS_ITS | Encounter Summary ---
Author Name Department of Vetera Affairs ([place]) Organization Department of [facility] [place] Affairs ([place]) Address [address] [place] [address] Care Team Providers Care Clinical Tech Name Role Phone SUKUMARGAGAN Primary Care Provider [...] Dickens's Name Patient's Relationship to Policy Dickens [facility] ([facility] MEDIC[facility] ADVANTAGE MCR (R) Jul 09, 2018 [id number] [place] [id number] SOO,[facility]KO [facility]) [facility] ([facility]) Jul 09, 2018 [id number] [place] [id number] [phone] SOO,PAKO IN PATIENT Selected Encounter This section includes the information on record at MD for the Encounter. Date/Time Encounter Type Encounter [...] this document. The data comes from all [place] facilities. Date Advance Directives Provider Source Nov 03, 2022 ADVANCE DIRECTIVE DISCUSSION GIACOMO RAMIREZ [facility] Oct 30, 2022 ADVANCE DIRECTIVE ALEKSANDAR GRANADO CS
--- OUTSIDE RECORDS SUMMARY | 2025-02-12 21:23 | XMS_ITS | Encounter Summary ---
Author Name Department of Vetera Affairs ([place]) Organization [facility] Affairs ([place]) Address [address] [place] [address] Care Team Providers Care Miter Saw Operator Name Role Phone SUKUMARGAGAN Primary Care Provider [...] Dickens's Name Patient's Relationship to Policy Dickens [facility] (WNR) MEDICARE ADVANTAGE MCR (R) Jul 09, 2018 [id number] [place] [id number] SOO,PAKO [facility]) [facility] ([facility]) Jul 09, 2018 [id number] [place] [id number] [phone] SOO,PAKO IN PATIENT Selected Encounter This section includes the information on record at OR for the Encounter. Date/Time Encounter Type Encounter [...] this document. The data comes from all [place] facilities. Date Advance Directives Provider Source Nov 03, 2022 ADVANCE DIRECTIVE DISCUSSION GIACOMO RAMIREZ [facility] Oct 30, 2022 ADVANCE DIRECTIVE ALEKSANDAR GRANADO CS
--- OUTSIDE RECORDS SUMMARY | 2025-02-12 21:23 | XMS_ITS | Encounter Summary ---
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 Date/Time Encounter Type Encounter Description Reason Pro vider Source November 06, 2024 08:08 AM Inpatient Visit IN HOSPITAL [facility] Encounter Template Text not used by [place] Plan of Treatment: Future Appointments (+ 6 months) and Future Tests (+/- 45 days) The Plan of Treatment section includes future care activities for the patient from all [place] treatmentfacilities. This section includes future appointments and future orders which are active, pending or scheduled. Future Appointments This section includes appointments that were scheduled to occur 6 months from the date of the Encounter, up to a maximum of 20 appointments. The data comes from all [place] treatment facilities. Appointment Date/Time Appointment Type Appointme nt Facility Name November 16, 2024 08:00 AM AMBULATORY - NONE [facility] December 01, 2024 10:00 AM AMBULATORY NONE [facility] December 03, 2024 10:00 AM AMBULATORY NONE [facility] December 05, 2024 11:45 AM AMBULATORY - SURGERY MARIA VICTORIA [facility] Mar 24, 2025 10:00 AM AMBULATORY - MEDICINE [facility] Mar 24, 2025 10:01 AM AMBULATORY - MEDICINE [facility] Mar 24, 2025 11:00 AM AMBULATORY - NONE [facility] Lab Results: +/- 30 days of the encounter This section includes the Chemistry and Hematology Lab Results on record with [place] for the patient. Radiology Reports and Pathology Reports are provided separately, in subsequent sections. Lab Results This section contains the Chemistry/Hematology Results that were resulted 30 days before or 30 daysafter the date of the Encounter. Date/Time Source Result Type Result - Unit Interpretation Reference Range Specimen Type Comment November 11, 2024 06:48 AM [facility] MAGNESIUM PLASMA Specimen Type: PLASMA Comment: K result may show a positive bias due to hemolysis. Specimen slightly hemolyzed. Ordering Provider: CONNIE KOCH Report Released Date/Time: November 06, 2024 07:13 AM Reporting Lab: [facility] [address] [facility] [address] Performing Lab: [facility] [address] [facility] [address] MAGNESIUM 1.9 mg/dL 1.6-2.6 November 11, 2024 06:48 AM [facility] RENAL PANEL PLASMA Specimen Type: PLASM A Comment: K result may show a positive bias due to hemolysis. Specimen slightly hemolyzed. Ordering Provider: CONNIE KOCH Report Released Date/Time: November 06, 2024 07:13 AM Reporting Lab: [address] [address] Performing Lab: [address] [address] CREATININE 0.89 mg/dL 0.7-1.3 UREA NITROGEN 16.9 mg/dL 9.0-25.0 GLUCOSE 99 mg/dL 72-99 SODIUM 136 meq/L 136-145 POTASSIUM 4.3 meq/L 3.5-5 CHLORIDE 104 meq/L 98-107 CARBON DIOXIDE 25 meq/L 22-31 CALCIUM 8.8 mg/dL 8.4-10.4 PHOSPHOROUS 3.6 mg/dL 2.3-4.7 ALBUMIN 3.5 g/dL 3.4-5 EGFR (CKD-EPI 2020) 86.1 >60 November 11, 2024 06:48 AM [facility] CBC BLOOD Specimen Type: BLOOD No comment entered. Ordering Provider: CONNIE KOCH Report Released Date/Time: November 06, 2024 07:13 AM Reporting Lab: [address] [address] Performing Lab: [address] [address] WBC 9.2 10*3/uL 3.6-11.2 RBC 5.85 10*6/uL [...] 0.00-0. 20 November 10, 2024 06:51 AM [facility] MAGNESIUM PLASMA Specimen Type: PLASM A Comment: No hemolysis noted. Ordering Provider: CONNIE KOCH Report Released Date/Time: November 06, 2024 07:13 AM Reporting Lab: [facility] [address] [facility] [address] Performing Lab: [address] [address] MAGNESIUM 2.1 mg/dL 1.6-2.6 November 10, 2024 06:51 AM [facility] RENAL PANEL PLASMA Specimen Type: PLASM A Comment: No hemolysis noted. Ordering Provider: CONNIE KOCH Report Released Date/Time: November 06, 2024 07:13 AM Reporting Lab: [address] [address] Performing Lab: [address] [address] CREATININE 0.86 mg/dL 0.7-1.3 UREA NITROGEN 18.8 mg/dL 9.0-25.0 GLUCOSE 100 mg/dL H 72-99 SODIUM 137 meq/L 136-145 POTASSIUM 4.2 meq/L 3.5-5 CHLORIDE 104 meq/L 98-107 CARBON DIOXIDE 26 meq/L 22-31 CALCIUM 9.2 mg/dL 8.4-10.4 PHOSPHOROUS 3.6 mg/dL 2.3-4.7 ALBUMIN 3.8 g/dL 3.4-5 EGFR (CKD-EPI 2020) 87.0 >60 November 10, 2024 06:51 AM [facility] CBC BLOOD Specimen Type: BLOOD No comment entered. Ordering Provider: CONNIE KOCH Report Released Date/Time: November 06, 2024 07:13 AM Reporting Lab: [address] [address] Performing Lab: [address] [place] [address] WBC 9.0 10*3/uL 3.6-11.2 RBC 5.85 10*6/uL [...] 0.00-0. 20 November 09, 2024 08:22 AM [facility] MAGNESIUM PLASMA Specimen Type: PLASM A Comment: No hemolysis noted. Ordering Provider: CONNIE KOCH Report Released Date/Time: November 06, 2024 07:13 AM Reporting Lab: [address] [address] Performing Lab: [address] [address] MAGNESIUM 2.1 mg/dL 1.6-2.6 November 09, 2024 08:22 AM [facility] RENAL PANEL PLASMA Specimen Type: PLASM A Comment: No hemolysis noted. Ordering Provider: CONNIE KOCH Report Released Date/Time: November 06, 2024 07:13 AM Reporting Lab: [address] [address] Performing Lab: [address] [address] CREATININE 0.86 mg/dL 0.7-1.3 UREA NITROGEN 18.6 mg/dL 9.0-25.0 GLUCOSE 87 mg/dL 72-99 SODIUM 138 meq/L 136-145 POTASSIUM 4.5 meq/L 3.5-5 CHLORIDE 104 meq/L 98-107 CARBON DIOXIDE 27 meq/L 22-31 CALCIUM 9.0 mg/dL 8.4-10.4 PHOSPHOROUS 3.2 mg/dL 2.3-4.7 ALBUMIN 3.5 g/dL 3.4-5 EGFR (CKD-EPI 2020) 87.0 >60 November 09, 2024 08:22 AM [facility] CBC BLOOD Specimen Type: BLOOD Comment: prev diff 11/07/24. Ordering Provider: CONNIE KOCH Report Released Date/Time: November 06, 2024 07:13 AM Reporting Lab: [facility] [address] [facility] [address] Performing Lab: [address] [address] WBC 10.7 10*3/uL 3.6-11.2 RBC 5.84 10*6/uL [...] 0.00-0. 20 November 08, 2024 09:04 AM [facility] MAGNESIUM PLASMA Specimen Type: PLASM A Comment: No hemolysis noted. Ordering Provider: CONNIE KOCH Report Released Date/Time: November 06, 2024 07:13 AM Reporting Lab: [facility] [address] [facility] [address] Performing Lab: [address] [address] MAGNESIUM 1.9 mg/dL 1.6-2.6 November 08, 2024 09:04 AM [facility] RENAL PANEL PLASMA Specimen Type: PLASM A Comment: No hemolysis noted. Ordering Provider: CONNIE KOCH Report Released Date/Time: November 06, 2024 07:13 AM Reporting Lab: [address] [address] Performing Lab: [address] [address] CREATININE 0.86 mg/dL 0.7-1.3 UREA NITROGEN 17.8 mg/dL 9.0-25.0 GLUCOSE 141 mg/dL H 72-99 SODIUM 137 meq/L 136-145 POTASSIUM 4.4 meq/L 3.5-5 CHLORIDE 103 meq/L 98-107 CARBON DIOXIDE 26 meq/L 22-31 CALCIUM 8.9 mg/dL 8.4-10.4 PHOSPHOROUS 3.2 mg/dL 2.3-4.7 ALBUMIN 3.6 g/dL 3.4-5 EGFR (CKD-EPI 2020) 87.0 >60 November 08, 2024 09:04 AM [facility] CBC BLOOD Specimen Type: BLOO D No comment entered. Ordering Provider: CONNIE KOCH Report Released Date/Time: November 06, 2024 07:13 AM Reporting Lab: [address] [address] Performing Lab: [address] [address] WBC 10.1 10*3/uL 3.6-11.2 RBC 5.77 10*6/uL [...] 0.00-0. 20 November 07, 2024 06:52 AM [facility] MAGNESIUM PLASMA Specimen Type: PLASM A Comment: No hemolysis noted. Ordering Provider: CONNIE KOCH Report Released Date/Time: November 06, 2024 07:13 AM Reporting Lab: [address] [address] Performing Lab: [address] [address] MAGNESIUM 2.0 mg/dL 1.6-2.6 November 07, 2024 06:52 AM [facility] RENAL PANEL PLASMA Specimen Type: PLASM A Comment: No hemolysis noted. Ordering Provider: CONNIE KOCH Report Released Date/Time: November 06, 2024 07:13 AM Reporting Lab: [address] [address] Performing Lab: [address] [address] CREATININE 1.00 mg/dL 0.7-1.3 UREA NITROGEN 19.3 mg/dL 9.0-25.0 GLUCOSE 123 mg/dL H 72-99 SODIUM 138 meq/L 136-145 POTASSIUM 4.7 meq/L 3.5-5 CHLORIDE 102 meq/L 98-107 CARBON DIOXIDE 27 meq/L 22-31 CALCIUM 8.9 mg/dL 8.4-10.4 PHOSPHOROUS 4.1 mg/dL 2.3-4.7 ALBUMIN 3.8 g/dL 3.4-5 EGFR (CKD-EPI 2020) 75.6 >60 November 07, 2024 06:52 AM [facility] CBC BLOOD Specimen Type: BLOOD No comment entered. Ordering Provider: CONNIE KOCH Report Released Date/Time: November 06, 2024 07:13 AM Reporting Lab: [facility] [address] [facility] [address] Performing Lab: [address] [address] WBC 12.6 10*3/uL H 3.6-11.2 RBC 5.50 [...] H 2.10-8.00 November 07, 2024 06:35 AM [facility] DIGOXIN PLASMA Specimen Type: PLASM A No comment entered. Ordering Provider: CONNIE KOCH Report Released Date/Time: November 07, 2024 08:41 AM Reporting Lab: [address] [address] Performing Lab: [address] [address] DIGOXIN <0.15 ng/mL L 0.8-2 November 06, 2024 07:05 AM [facility] MAGNESIUM PLASMA Specimen Type: PLASM A Comment: No hemolysis noted. Ordering Provider: MICH RAMIREZ Report Released Date/Time: Nov 05, 2024 11:04 PM Reporting Lab: [address] [address] Performing Lab: [address] [address] MAGNESIUM 1.9 mg/dL 1.6-2.6 November 06, 2024 07:05 AM [facility] RENAL PANEL PLASMA Specimen Type: PLASM A Comment: No hemolysis noted. Ordering Provider: MICH RAMIREZ Report Released Date/Time: Nov 05, 2024 11:04 PM Reporting Lab: [address] [address] Performing Lab: [address] [address] CREATININE 0.88 mg/dL 0.7-1.3 UREA NITROGEN 18.0 mg/dL 9.0-25.0 GLUCOSE 101 mg/dL H 72-99 SODIUM 136 meq/L 136-145 POTASSIUM 4.1 meq/L 3.5-5 CHLORIDE 99 meq/L 98-107 CARBON DIOXIDE 30 meq/L 22-31 CALCIUM 8.8 mg/dL 8.4-10.4 PHOSPHOROUS 4.1 mg/dL 2.3-4.7 ALBUMIN 3.1 g/dL L 3.4-5 EGFR (CKD-EPI 2020) 86.4 >60 November 06, 2024 07:05 AM [facility] CBC BLOOD Specimen Type: BLOOD No comment entered. Ordering Provider: MICH RAMIREZ Report Released Date/Time: Nov 05, 2024 11:04 PM Reporting Lab: [address] [address] Performing Lab: [address] [address] WBC 10.3 10*3/uL 3.6-11.2 RBC 5.27 10*6/uL [...] 0.00-0. 20 November 06, 2024 03:00 AM [facility] MRSA SURVL NARES DNA NARES Specimen Type: [...] Nov 05, 2024 06:43 PM Reporting Lab: [address] [address] Performing Lab: [place] [address] [address] MRSA SURVL NARES DNA Negative Negative Nov 05, 2024 08:34 PM [facility] MAGNESIUM PLASMA Specimen Type: PLASM A Comment: No hemolysis noted. Ordering Provider: IRON TAFOYA Report Released Date/Time: Nov 05, 2024 06:43 PM Reporting Lab: [address] [address] Performing Lab: [address] [address] MAGNESIUM 1.9 mg/dL 1.6-2.6 Nov 05, 2024 08:34 PM [facility] PHOSPHOROUS PLASMA Specimen Type: PLASM A Comment: No hemolysis noted. Ordering Provider: IRON TAFOYA Report Released Date/Time: Nov 05, 2024 06:43 PM Reporting Lab: [address] [address] Performing Lab: [address] [address] PHOSPHOROUS 3.7 mg/dL 2.3-4.7 Nov 05, 2024 08:34 PM [facility] COMPREHENSIVE METABOLIC PANEL PLASMA Specimen Type: PLASMA Comment: No hemolysis noted. Ordering Provider: IRON TAFOYA Report Released Date/Time: Nov 05, 2024 06:43 PM Reporting Lab: [address] [address] Performing Lab: [address] [address] CREATININE 1.02 mg/dL 0.7-1.3 UREA NITROGEN 19.8 [...] 73.8 >60 Nov 05, 2024 08:34 PM [facility] CBC BLOOD Specimen Type: BLOOD No comment entered. Ordering Provider: IRON TAFOYA Report Released Date/Time: Nov 05, 2024 06:43 PM Reporting Lab: [facility] [address] [facility] [address] Performing Lab: [facility] [address] [facility] [address] WBC 11.1 10*3/uL 3.6-11.2 RBC 5.73 10*6/uL [...] Source November 06, 2024 09:35 PM 0 [facility] November 06, 2024 09:24 PM 98.2 98 110/82 18 96 0 [facility] November 06, 2024 04:23 PM 5 [facility] November 06, 2024 04:22 PM 6 [facility] November 06, 2024 03:56 PM 97.8 81 115/69 18 96 [facility] Social History: Smoking Status (Most current) and Tobacco Use (All prior to encounter date) This section includes the most current, and the historical, smoking and tobacco- related health factors from the [place] facility where the Encounter took place. Current Smoking Status This section includes the most current smoking, or tobacco-related health factor, from the [place] facility where the Encounter took place. Date/Time Current Smoking Status Comment Nuzhat bennett Oct 17, 2022 02:55 PM [facility] ADMIT TOBACCO SCREEN REFUSED [facility] Advance Directives: All historical and current Section Date Range: From patient's date of to the date document was created. This section includes ALL of a patient's completed or amended [place] Advance and Rescinded Directives. The entries below indicate that a directive exists for the patient, but an actual copy is not included with this document. The data comes from all [place] facilities. Date Advance Directives Provider Source Nov 03, 2022 ADVANCE DIRECTIVE DISCUSSION GIACOMO RAMIREZ [facility] Oct 30, 2022 ADVANCE DIRECTIVE ALEKSANDAR GRANADO
--- OUTSIDE RECORDS SUMMARY | 2025-02-12 21:23 | XMS_ITS ---
Author Name [facility] [place] Address [address] [place] [address] Care Team Providers Care Anesthesiology Faculty Name Role Phone SUKUMARGAGAN Primary Care Provider [...] Name Patient's Relationship to Policy Dickens [employer] [facility] (WNR) MEDICARE ADVANTAGE [facility] (WNR) Jul 09, 2018 [id number] [phone] SOO,PAKO IN PATIENT [employer] [facility] (WNR) MEDICARE ADVANTAGE [facility] (WNR) Jul 09, 2018 [id number] [phone] SOO,PAKO IN PATIENT Selected Encounter This section includes the information on record at [place] for the Encounter. Date/Time Encounter Type Encounter Description Reason Provider Source November 10, 2024 04:10 PM [facility] TECHNICAL LEAD SENIOR DEVELOPER INTAKE COUNSELOR INDIVIDU [facility] TECHNICAL LEAD SENIOR DEVELOPER SERVICE - INDIVIDUAL ICD-10-CM Z71.81 Spiritual or judaism counseling LETI BEVERLY Ciro Encounter Template Text not used by [place] Assessments - Encounter Diagnoses This section includes the primary and secondary diagnoses documented for the Encounter. Date/Time Primary/Secondary Diagnosis Diagnosis Name Provider Source November 10, 2024 05:07 PM PRIMARY Spiritual or judaism counseling GEOFFHUSSAIN Nallely [facility] Plan of Treatment: Future Appointments (+ 6 months) and Future Tests (+/- 45 days) The Plan of Treatment section includes future care activities for the patient from all [place] treatmentfacilities. This section includes future appointments and future orders which are active, pending or scheduled. Future Appointments This section includes appointments that were scheduled to occur 6 months from the date of the Encounter, up to a maximum of 20 appointments. The data comes from all [place] treatment facilities. Appointment Date/Time Appointment Type Appointme nt Facility Name November 16, 2024 08:00 AM [facility] December 01, 2024 10:[address] [facility] December 03, 2024 10:[address] [facility] December 05, 2024 11:45 AM AMBULATORY - SURGERY [facility] Mar 24, 2025 10:00 AM AMBULATORY - MEDICINE [facility] Mar 24, 2025 10:01 AM AMBULATORY - MEDICINE [facility] Mar 24, 2025 11:00 AM [facility] - [facility] Lab Results: +/- 30 days of the encounter This section includes the Chemistry and Hematology Lab Results on record with [place] for the patient. Radiology Reports and Pathology Reports are provided separately, in subsequent sections. Lab Results This section contains the Chemistry/Hematology Results that were resulted 30 days before or 30 daysafter the date of the Encounter. Date/Time Source Result Type Result - Unit Interpretation Reference Range Specimen Type Comment November 11, 2024 06:48 AM [facility] MAGNESIUM PLASMA Specimen Type: PLASMA Comment: K result may show a positive bias due to hemolysis. Specimen slightly hemolyzed. Ordering Provider: CONNIE KOCH Report Released Date/Time: November 06, 2024 07:13 AM Reporting Lab: [facility] [address] [facility] [address] Performing Lab: [facility] [address] [facility] [address] MAGNESIUM 1.9 mg/dL 1.6-2.6 November 11, 2024 06:48 AM [facility] RENAL PANEL PLASMA Specimen Type: PLASM A Comment: K result may show a positive bias due to hemolysis. Specimen slightly hemolyzed. Ordering Provider: CONNIE KOCH Report Released Date/Time: November 06, 2024 07:13 AM Reporting Lab: [address] [address] Performing Lab: [address] [address] CREATININE 0.89 mg/dL 0.7-1.3 UREA NITROGEN 16.9 mg/dL 9.0-25.0 GLUCOSE 99 mg/dL 72-99 SODIUM 136 meq/L 136-145 POTASSIUM 4.3 meq/L 3.5-5 CHLORIDE 104 meq/L 98-107 CARBON DIOXIDE 25 meq/L 22-31 CALCIUM 8.8 mg/dL 8.4-10.4 PHOSPHOROUS 3.6 mg/dL 2.3-4.7 ALBUMIN 3.5 g/dL 3.4-5 EGFR (CKD-EPI 2020) 86.1 >60 November 11, 2024 06:48 AM [facility] CBC BLOOD Specimen Type: BLOOD No comment entered. Ordering Provider: CONNIE KOCH Report Released Date/Time: November 06, 2024 07:13 AM Reporting Lab: [address] [address] Performing Lab: [address] [address] WBC 9.2 10*3/uL 3.6-11.2 RBC 5.85 10*6/uL [...] 0.00-0. 20 November 10, 2024 06:51 AM [facility] MAGNESIUM PLASMA Specimen Type: PLASM A Comment: No hemolysis noted. Ordering Provider: CONNIE KOCH Report Released Date/Time: November 06, 2024 07:13 AM Reporting Lab: [address] [address] Performing Lab: [address] [address] MAGNESIUM 2.1 mg/dL 1.6-2.6 November 10, 2024 06:51 AM [facility] RENAL PANEL PLASMA Specimen Type: PLASM A Comment: No hemolysis noted. Ordering Provider: CONNIE KOCH Report Released Date/Time: November 06, 2024 07:13 AM Reporting Lab: [address] [address] Performing Lab: [address] [address] CREATININE 0.86 mg/dL 0.7-1.3 UREA NITROGEN 18.8 mg/dL 9.0-25.0 GLUCOSE 100 mg/dL H 72-99 SODIUM 137 meq/L 136-145 POTASSIUM 4.2 meq/L 3.5-5 CHLORIDE 104 meq/L 98-107 CARBON DIOXIDE 26 meq/L 22-31 CALCIUM 9.2 mg/dL 8.4-10.4 PHOSPHOROUS 3.6 mg/dL 2.3-4.7 ALBUMIN 3.8 g/dL 3.4-5 EGFR (CKD-EPI 2020) 87.0 >60 November 10, 2024 06:51 AM [facility] CBC BLOOD Specimen Type: BLOOD No comment entered. Ordering Provider: CONNIE KOCH Report Released Date/Time: November 06, 2024 07:13 AM Reporting Lab: [facility] [address] [facility] [address] Performing Lab: [facility] [address] [place] [address] WBC 9.0 10*3/uL 3.6-11.2 RBC 5.85 10*6/uL [...] 0.00-0. 20 November 09, 2024 08:22 AM [facility] MAGNESIUM PLASMA Specimen Type: PLASM A Comment: No hemolysis noted. Ordering Provider: CONNIE KOCH Report Released Date/Time: November 06, 2024 07:13 AM Reporting Lab: [place] [address] [facility] [address] Performing Lab: [address] [address] MAGNESIUM 2.1 mg/dL 1.6-2.6 November 09, 2024 08:22 AM [facility] RENAL PANEL PLASMA Specimen Type: PLASM A Comment: No hemolysis noted. Ordering Provider: CONNIE KOCH Report Released Date/Time: November 06, 2024 07:13 AM Reporting Lab: [address] [address] Performing Lab: [address] [address] CREATININE 0.86 mg/dL 0.7-1.3 UREA NITROGEN 18.6 mg/dL 9.0-25.0 GLUCOSE 87 mg/dL 72-99 SODIUM 138 meq/L 136-145 POTASSIUM 4.5 meq/L 3.5-5 CHLORIDE 104 meq/L 98-107 CARBON DIOXIDE 27 meq/L 22-31 CALCIUM 9.0 mg/dL 8.4-10.4 PHOSPHOROUS 3.2 mg/dL 2.3-4.7 ALBUMIN 3.5 g/dL 3.4-5 EGFR (CKD-EPI 2020) 87.0 >60 November 09, 2024 08:22 AM [facility] CBC BLOOD Specimen Type: BLOOD Comment: prev diff 11/07/24. Ordering Provider: CONNIE KOCH Report Released Date/Time: November 06, 2024 07:13 AM Reporting Lab: [address] [address] Performing Lab: [address] [address] WBC 10.7 10*3/uL 3.6-11.2 RBC 5.84 10*6/uL [...] 0.00-0. 20 November 08, 2024 09:04 AM [facility] MAGNESIUM PLASMA Specimen Type: PLASM A Comment: No hemolysis noted. Ordering Provider: CONNIE KOCH Report Released Date/Time: November 06, 2024 07:13 AM Reporting Lab: [address] [address] Performing Lab: [address] [address] MAGNESIUM 1.9 mg/dL 1.6-2.6 November 08, 2024 09:04 AM [facility] RENAL PANEL PLASMA Specimen Type: PLAS MA Comment: No hemolysis noted. Ordering Provider: CONNIE KOCH Report Released Date/Time: November 06, 2024 07:13 AM Reporting Lab: [address] [address] Performing Lab: [address] [address] CREATININE 0.86 mg/dL 0.7-1.3 UREA NITROGEN 17.8 mg/dL 9.0-25.0 GLUCOSE 141 mg/dL H 72-99 SODIUM 137 meq/L 136-145 POTASSIUM 4.4 meq/L 3.5-5 CHLORIDE 103 meq/L 98-107 CARBON DIOXIDE 26 meq/L 22-31 CALCIUM 8.9 mg/dL 8.4-10.4 PHOSPHOROUS 3.2 mg/dL 2.3-4.7 ALBUMIN 3.6 g/dL 3.4-5 EGFR (CKD-EPI 2020) 87.0 >60 November 08, 2024 09:04 AM [facility] CBC BLOOD Specimen Type: BLOOD No comment entered. Ordering Provider: CONNIE KOCH Report Released Date/Time: November 06, 2024 07:13 AM Reporting Lab: [address] [place] [address] Performing Lab: [place] [address] [facility] [address] WBC 10.1 10*3/uL 3.6-11.2 RBC 5.77 10*6/uL [...] 0.00-0. 20 November 07, 2024 06:52 AM [facility] MAGNESIUM PLASMA Specimen Type: PLASM A Comment: No hemolysis noted. Ordering Provider: CONNIE KOCH Report Released Date/Time: November 06, 2024 07:13 AM Reporting Lab: [place] [address] [facility] [address] Performing Lab: [place] [address] [facility] [address] MAGNESIUM 2.0 mg/dL 1.6-2.6 November 07, 2024 06:52 AM [facility] RENAL PANEL PLASMA Specimen Type: PLASM A Comment: No hemolysis noted. Ordering Provider: CONNIE KOCH Report Released Date/Time: November 06, 2024 07:13 AM Reporting Lab: [address] [address] Performing Lab: [place] [address] [facility] [address] CREATININE 1.00 mg/dL 0.7-1.3 UREA NITROGEN 19.3 mg/dL 9.0-25.0 GLUCOSE 123 mg/dL H 72-99 SODIUM 138 meq/L 136-145 POTASSIUM 4.7 meq/L 3.5-5 CHLORIDE 102 meq/L 98-107 CARBON DIOXIDE 27 meq/L 22-31 CALCIUM 8.9 mg/dL 8.4-10.4 PHOSPHOROUS 4.1 mg/dL 2.3-4.7 ALBUMIN 3.8 g/dL 3.4-5 EGFR (CKD-EPI 2020) 75.6 >60 November 07, 2024 06:52 AM [facility] CBC BLOOD Specimen Type: BLOOD No comment entered. Ordering Provider: CONNIE KOCH Report Released Date/Time: November 06, 2024 07:13 AM Reporting Lab: [address] [address] Performing Lab: [address] [address] WBC 12.6 10*3/uL H 3.6-11.2 RBC 5.50 [...] H 2.10-8.00 November 07, 2024 06:35 AM [facility] DIGOXIN PLASMA Specimen Type: PLASM A No comment entered. Ordering Provider: CONNIE KOCH Report Released Date/Time: November 07, 2024 08:41 AM Reporting Lab: [address] [address] Performing Lab: [address] [address] DIGOXIN <0.15 ng/mL L 0.8-2 November 06, 2024 07:05 AM [facility] MAGNESIUM PLASMA Specimen Type: PLASM A Comment: No hemolysis noted. Ordering Provider: MICH RAMIREZ Report Released Date/Time: Nov 05, 2024 11:04 PM Reporting Lab: [address] [address] Performing Lab: [address] [address] MAGNESIUM 1.9 mg/dL 1.6-2.6 November 06, 2024 07:05 AM [facility] RENAL PANEL PLASMA Specimen Type: PLASM A Comment: No hemolysis noted. Ordering Provider: MICH RAMIREZ Report Released Date/Time: Nov 05, 2024 11:04 PM Reporting Lab: [address] [address] Performing Lab: [address] [address] CREATININE 0.88 mg/dL 0.7-1.3 UREA NITROGEN 18.0 mg/dL 9.0-25.0 GLUCOSE 101 mg/dL H 72-99 SODIUM 136 meq/L 136-145 POTASSIUM 4.1 meq/L 3.5-5 CHLORIDE 99 meq/L 98-107 CARBON DIOXIDE 30 meq/L 22-31 CALCIUM 8.8 mg/dL 8.4-10.4 PHOSPHOROUS 4.1 mg/dL 2.3-4.7 ALBUMIN 3.1 g/dL L 3.4-5 EGFR (CKD-EPI 2020) 86.4 >60 November 06, 2024 07:05 AM [facility] CBC BLOOD Specimen Type: BLOOD No comment entered. Ordering Provider: MICH RAMIREZ Report Released Date/Time: Nov 05, 2024 11:04 PM Reporting Lab: [address] [address] Performing Lab: [place] [address] [facility] [address] WBC 10.3 10*3/uL 3.6-11.2 RBC 5.27 10*6/uL [...] 0.00-0. 20 November 06, 2024 03:00 AM [facility] MRSA SURVL NARES DNA NARES Specimen Type: [...] Nov 05, 2024 06:43 PM Reporting Lab: [facility] [address] [place] [address] Performing Lab: [address] [address] MRSA SURVL NARES DNA Negative Negative Nov 05, 2024 08:34 PM [facility] MAGNESIUM PLASMA Specimen Type: PLASM A Comment: No hemolysis noted. Ordering Provider: IRON TAFOYA Report Released Date/Time: Nov 05, 2024 06:43 PM Reporting Lab: [place] [address] Performing Lab: [place] [phone] MAGNESIUM 1.9 mg/dL 1.6-2.6 Nov 05, 2024 08:34 PM [facility] PHOSPHOROUS PLASMA Specimen Type: PLASM A Comment: No hemolysis noted. Ordering Provider: IRON TAFOYA Report Released Date/Time: Nov 05, 2024 06:43 PM Reporting Lab: [place] [phone] Performing Lab: [address] [address] PHOSPHOROUS 3.7 mg/dL 2.3-4.7 Nov 05, 2024 08:34 PM [facility] CBC BLOOD Specimen Type: BLOOD No comment entered. Ordering Provider: IRON TAFOYA Report Released Date/Time: Nov 05, 2024 06:43 PM Reporting Lab: [place] [phone] Performing Lab: [address] [address] WBC 11.1 10*3/uL 3.6-11.2 RBC 5.73 10*6/uL [...] 0.00-0. 20 Nov 05, 2024 08:34 PM [facility] COMPREHENSIVE METABOLIC PANEL PLASMA Specimen Type: PLASMA Comment: No hemolysis noted. Ordering Provider: IRON TAFOYA Report Released Date/Time: Nov 05, 2024 06:43 PM Reporting Lab: [address] [address] Performing Lab: [address] [address] CREATININE 1.02 mg/dL 0.7-1.3 UREA NITROGEN 19.8 [...] Height Weight Body Mass Index Source November 10, 2024 10:29 PM 0 [facility] November 10, 2024 08:27 PM 97.7 64 136/85 18 96 0 [facility] November 10, 2024 09:35 AM 0 [facility] November 10, 2024 08:33 AM 97.9 71 101/68 18 99 0 [facility] November 10, 2024 06:21 AM 97.8 64 104/68 16 98 0 [facility] Social History: Smoking Status (Most current) and Tobacco Use (All prior to encounter date) This section includes the most current, and the historical, smoking and tobacco- related health factors from the [place] facility where the Encounter took place. Current Smoking Status This section includes the most current smoking, or tobacco-related health factor, from the [place] facility where the Encounter took place. Date/Time Current Smoking Status Comment Facil [facility] Oct 17, 2022 02:55 PM ORYX ADMIT TOBACCO SCREEN REFUSED [facility] Advance Directives: All historical and current Section Date Range: From patient's date of to the date document was created. This section includes ALL of a patient's completed or amended [place] Advance and Rescinded Directives. The entries below indicate that a directive exists for the patient, but an actual copy is not included with this document. The data comes from all [place] facilities. Date Advance Directives Provider Source Nov 03, 2022 ADVANCE DIRECTIVE DISCUSSION GIACOMO RAMIREZ [facility] Oct 30, 2022 ADVANCE DIRECTIVE ALEKSANDAR GRANADO Encounter Notes: All associated encounter notes This section contains the clinical notes associated to the Encounter. Date/Time Encounter Note(s) Provider Source November 10, 2024 04:10 PM PASTORAL CARE NOTE : LOCAL TITLE: PASTORAL CARE NOTE STANDARD TITLE: PASTORAL CARE NOTE DATE OF NOTE: NOVEMBER 10, 2024@16:10 ENTRY DATE: NOVEMBER 10, 2024@17:01:26 AUTHOR: HUSSAIN TELLEZ EXP COSIGNER: SIMBA MCCARTHY URGENCY: STATUS: COMPLETED Pastoral Visit: Initial Waste Water Or Water Plant Operator met with: Presto, Son (Son is a Bottle Washing Machine Operator at the [place] who responded to the Code [place] in Rm 46.) Location: Patient Room Initial Interaction: Informed of manager telecom's availability to discuss condition and concerns had been in a room with hostile roommate and was returned to a single room. Discussed 's relationship with: Roommate Discussed 's concerns regarding: medical issues Presto's heartrate was elevated according to his son, a [place] motorcycle police. Waste Water Or Water Plant Operator suggested the Presto ask if he could go for a walk with his careers adviser to calm his heartrate and nervous system after asking son what calms him. INTERVENTION Offered / accepted: pastoral support, ministry of presence, additional counseling, supportive listening OUTCOMES Presto's Response: Observations: experienced support FOLLOW-UP Waste Water Or Water Plant Operator will be available to as needed throughout this admission. /rody/ HUSSAIN TELLEZ Radial Router Operator Signed: 11/10/2024 17:07 /rody/ SIMBA MCCARTHY [facility] TECHNICAL LEAD SENIOR DEVELOPER Cosigned: 11/12/2024 08:13 HUSSAIN TELLEZ [facility]
--- OUTSIDE RECORDS SUMMARY | 2025-02-12 21:23 | XMS_ITS | Encounter Summary ---
Author Name [facility] [place] [facility] Address [address] [place] [address] Care Team Providers Care Cardiopulmonary Specialist Name Role Phone SUKUMARGAGAN [facility] [...] [facility]) Jul 09, 2018 [id number]- [place] [id number] [phone] SOO,PAKO IN PATIENT AETNA [facility] (WNR) MEDICARE ADVANTAGE [facility] (WNR) Jul 09, 2018 [id number]- [place] [id number] [phone] SOOGIDEONV IN PATIENT Selected Encounter This section includes the information on record at [place] for the Encounter. Date/Time Encounter Type Encounter Description Reason Provider Source Oct 22, 2024 09:12 AM Outpatient Encounter GENERAL INTERNAL MEDICINE TARIQ DSOUZA [facility] Encounter Template Text not used by [place] Plan of Treatment: Future Appointments (+ 6 months) and Future Tests (+/- 45 days) The Plan of Treatment section includes future care activities for the patient from all [place] treatmentfacilities. This section includes future appointments and future orders which are active, pending or scheduled. Future Appointments This section includes appointments that were scheduled to occur 6 months from the date of the Encounter, up to a maximum of 20 appointments. The data comes from all [place] treatment facilities. Appointment Date/Time Appointment Type Appointme nt Facility Name November 16, 2024 08:00 AM AMBULATORY - NONE [facility] December 01, 2024 10:00 AM AMBULATORY NONE [facility] December 03, 2024 10:00 AM AMBULATORY [facility] December 05, 2024 11:45 AM AMBULATORY - SURGERY MARIA VICTORIA [facility] Mar 24, 2025 10:00 AM [facility] Mar 24, 2025 10:01 AM AMBULATORY - MEDICINE [facility] Mar 24, 2025 11:00 AM AMBULATORY - NONE [facility] Lab Results: +/- 30 days of the encounter This section includes the Chemistry and Hematology Lab Results on record with [place] for the patient. Radiology Reports and Pathology Reports are provided separately, in subsequent sections. Lab Results This section contains the Chemistry/Hematology Results that were resulted 30 days before or 30 daysafter the date of the Encounter. Date/Time Source Result Type Result - Unit Interpretation Reference Range Specimen Type Comment November 11, 2024 06:48 AM [facility] MAGNESIUM PLASMA Specimen Type: PLASMA Comment: K result may show a positive bias due to hemolysis. Specimen slightly hemolyzed. Ordering Provider: CONNIE KOCH Report Released Date/Time: November 06, 2024 07:13 AM Reporting Lab: [facility] [address] [place] [address] Performing Lab: [facility] [address] [facility] [address] MAGNESIUM 1.9 mg/dL 1.6-2.6 November 11, 2024 06:48 AM [facility] RENAL PANEL PLASMA Specimen Type: PLASM A Comment: K result may show a positive bias due to hemolysis. Specimen slightly hemolyzed. Ordering Provider: CONNIE KOCH Report Released Date/Time: November 06, 2024 07:13 AM Reporting Lab: [address] [address] Performing Lab: [address] [address] CREATININE 0.89 mg/dL 0.7-1.3 UREA NITROGEN 16.9 mg/dL 9.0-25.0 GLUCOSE 99 mg/dL 72-99 SODIUM 136 meq/L 136-145 POTASSIUM 4.3 meq/L 3.5-5 CHLORIDE 104 meq/L 98-107 CARBON DIOXIDE 25 meq/L 22-31 CALCIUM 8.8 mg/dL 8.4-10.4 PHOSPHOROUS 3.6 mg/dL 2.3-4.7 ALBUMIN 3.5 g/dL 3.4-5 EGFR (CKD-EPI 2020) 86.1 >60 November 11, 2024 06:48 AM [facility] CBC BLOOD Specimen Type: BLOOD No comment entered. Ordering Provider: CONNIE KOCH Report Released Date/Time: November 06, 2024 07:13 AM Reporting Lab: [address] [address] Performing Lab: [address] [address] WBC 9.2 10*3/uL 3.6-11.2 RBC 5.85 10*6/uL [...] 0.00-0. 20 November 10, 2024 06:51 AM [facility] MAGNESIUM PLASMA Specimen Type: PLASM A Comment: No hemolysis noted. Ordering Provider: CONNIE KOCH Report Released Date/Time: November 06, 2024 07:13 AM Reporting Lab: [facility] [address] [facility] [address] Performing Lab: [address] [address] MAGNESIUM 2.1 mg/dL 1.6-2.6 November 10, 2024 06:51 AM [facility] RENAL PANEL PLASMA Specimen Type: PLASM A Comment: No hemolysis noted. Ordering Provider: CONNIE KOCH Report Released Date/Time: November 06, 2024 07:13 AM Reporting Lab: [facility] [address] [facility] [address] Performing Lab: [address] [address] CREATININE 0.86 mg/dL 0.7-1.3 UREA NITROGEN 18.8 mg/dL 9.0-25.0 GLUCOSE 100 mg/dL H 72-99 SODIUM 137 meq/L 136-145 POTASSIUM 4.2 meq/L 3.5-5 CHLORIDE 104 meq/L 98-107 CARBON DIOXIDE 26 meq/L 22-31 CALCIUM 9.2 mg/dL 8.4-10.4 PHOSPHOROUS 3.6 mg/dL 2.3-4.7 ALBUMIN 3.8 g/dL 3.4-5 EGFR (CKD-EPI 2020) 87.0 >60 November 10, 2024 06:51 AM [facility] CBC BLOOD Specimen Type: BLOOD No comment entered. Ordering Provider: CONNIE KOCH Report Released Date/Time: November 06, 2024 07:13 AM Reporting Lab: [place] [id number] [facility] [address] Performing Lab: [facility] [address] [place] [address] WBC 9.0 10*3/uL 3.6-11.2 RBC 5.85 10*6/uL [...] 0.00-0. 20 November 09, 2024 08:22 AM [facility] MAGNESIUM PLASMA Specimen Type: PLASM A Comment: No hemolysis noted. Ordering Provider: CONNIE KOCH Report Released Date/Time: November 06, 2024 07:13 AM Reporting Lab: [address] [address] Performing Lab: [address] [address] MAGNESIUM 2.1 mg/dL 1.6-2.6 November 09, 2024 08:22 AM [facility] RENAL PANEL PLASMA Specimen Type: PLASM A Comment: No hemolysis noted. Ordering Provider: CONNIE KOCH Report Released Date/Time: November 06, 2024 07:13 AM Reporting Lab: [address] [address] Performing Lab: [address] [address] CREATININE 0.86 mg/dL 0.7-1.3 UREA NITROGEN 18.6 mg/dL 9.0-25.0 GLUCOSE 87 mg/dL 72-99 SODIUM 138 meq/L 136-145 POTASSIUM 4.5 meq/L 3.5-5 CHLORIDE 104 meq/L 98-107 CARBON DIOXIDE 27 meq/L 22-31 CALCIUM 9.0 mg/dL 8.4-10.4 PHOSPHOROUS 3.2 mg/dL 2.3-4.7 ALBUMIN 3.5 g/dL 3.4-5 EGFR (CKD-EPI 2020) 87.0 >60 November 09, 2024 08:22 AM [facility] CBC BLOOD Specimen Type: BLOOD Comment: prev diff 11/07/24. Ordering Provider: CONNIE KOCH Report Released Date/Time: November 06, 2024 07:13 AM Reporting Lab: [facility] [address] [facility] [address] Performing Lab: [facility] [address] [facility] [address] WBC 10.7 10*3/uL 3.6-11.2 RBC 5.84 10*6/uL [...] 0.00-0. 20 November 08, 2024 09:04 AM [facility] MAGNESIUM PLASMA Specimen Type: PLASM A Comment: No hemolysis noted. Ordering Provider: CONNIE KOCH Report Released Date/Time: November 06, 2024 07:13 AM Reporting Lab: [facility] [address] [place] [address] Performing Lab: [address] [address] MAGNESIUM 1.9 mg/dL 1.6-2.6 November 08, 2024 09:04 AM [facility] RENAL PANEL PLASMA Specimen Type: PLASM A Comment: No hemolysis noted. Ordering Provider: CONNIE KOCH Report Released Date/Time: November 06, 2024 07:13 AM Reporting Lab: [address] [address] Performing Lab: [address] [address] CREATININE 0.86 mg/dL 0.7-1.3 UREA NITROGEN 17.8 mg/dL 9.0-25.0 GLUCOSE 141 mg/dL H 72-99 SODIUM 137 meq/L 136-145 POTASSIUM 4.4 meq/L 3.5-5 CHLORIDE 103 meq/L 98-107 CARBON DIOXIDE 26 meq/L 22-31 CALCIUM 8.9 mg/dL 8.4-10.4 PHOSPHOROUS 3.2 mg/dL 2.3-4.7 ALBUMIN 3.6 g/dL 3.4-5 EGFR (CKD-EPI 2020) 87.0 >60 November 08, 2024 09:04 AM [facility] CBC BLOOD Specimen Type: BLOOD No comment entered. Ordering Provider: CONNIE KOCH Report Released Date/Time: November 06, 2024 07:13 AM Reporting Lab: [address] [address] Performing Lab: [address] [address] WBC 10.1 10*3/uL 3.6-11.2 RBC 5.77 10*6/uL [...] 0.00-0. 20 November 07, 2024 06:52 AM [facility] MAGNESIUM PLASMA Specimen Type: PLASM A Comment: No hemolysis noted. Ordering Provider: CONNIE KOCH Report Released Date/Time: November 06, 2024 07:13 AM Reporting Lab: [address] [address] Performing Lab: [address] [address] MAGNESIUM 2.0 mg/dL 1.6-2.6 November 07, 2024 06:52 AM [facility] RENAL PANEL PLASMA Specimen Type: PLASM A Comment: No hemolysis noted. Ordering Provider: CONNIE KOCH Report Released Date/Time: November 06, 2024 07:13 AM Reporting Lab: [address] [address] Performing Lab: [address] [address] CREATININE 1.00 mg/dL 0.7-1.3 UREA NITROGEN 19.3 mg/dL 9.0-25.0 GLUCOSE 123 mg/dL H 72-99 SODIUM 138 meq/L 136-145 POTASSIUM 4.7 meq/L 3.5-5 CHLORIDE 102 meq/L 98-107 CARBON DIOXIDE 27 meq/L 22-31 CALCIUM 8.9 mg/dL 8.4-10.4 PHOSPHOROUS 4.1 mg/dL 2.3-4.7 ALBUMIN 3.8 g/dL 3.4-5 EGFR (CKD-EPI 2020) 75.6 >60 November 07, 2024 06:52 AM [facility] CBC BLOOD Specimen Type: BLOOD No comment entered. Ordering Provider: CONNIE KOCH Report Released Date/Time: November 06, 2024 07:13 AM Reporting Lab: [facility] [address] [place] [place] [address] Performing Lab: [address] [address] WBC 12.6 10*3/uL H 3.6-11.2 RBC 5.50 [...] H 2.10-8.00 November 07, 2024 06:35 AM [facility] DIGOXIN PLASMA Specimen Type: PLASM A No comment entered. Ordering Provider: AUGUST,CONNIE D Report Released Date/Time: November 07, 2024 08:41 AM Reporting Lab: [address] [address] Performing Lab: [address] [address] DIGOXIN <0.15 ng/mL L 0.8-2 November 06, 2024 07:05 AM [facility] MAGNESIUM PLASMA Specimen Type: PLASM A Comment: No hemolysis noted. Ordering Provider: MICH RAMIREZ Report Released Date/Time: Nov 05, 2024 11:04 PM Reporting Lab: [address] [address] Performing Lab: [address] [address] MAGNESIUM 1.9 mg/dL 1.6-2.6 November 06, 2024 07:05 AM [facility] RENAL PANEL PLASMA Specimen Type: PLASM A Comment: No hemolysis noted. Ordering Provider: MICH RAMIREZ Report Released Date/Time: Nov 05, 2024 11:04 PM Reporting Lab: [address] [address] Performing Lab: [address] [address] CREATININE 0.88 mg/dL 0.7-1.3 UREA NITROGEN 18.0 mg/dL 9.0-25.0 GLUCOSE 101 mg/dL H 72-99 SODIUM 136 meq/L 136-145 POTASSIUM 4.1 meq/L 3.5-5 CHLORIDE 99 meq/L 98-107 CARBON DIOXIDE 30 meq/L 22-31 CALCIUM 8.8 mg/dL 8.4-10.4 PHOSPHOROUS 4.1 mg/dL 2.3-4.7 ALBUMIN 3.1 g/dL L 3.4-5 EGFR (CKD-EPI 2020) 86.4 >60 November 06, 2024 07:05 AM [facility] CBC BLOOD Specimen Type: BLOOD No comment entered. Ordering Provider: MICH RAMIREZ Report Released Date/Time: Nov 05, 2024 11:04 PM Reporting Lab: [address] [address] Performing Lab: [address] [address] WBC 10.3 10*3/uL 3.6-11.2 RBC 5.27 10*6/uL [...] 0.00-0. 20 November 06, 2024 03:00 AM [facility] MRSA SURVL NARES DNA NARES Specimen [...] Nov 05, 2024 06:43 PM Reporting Lab: [address] [address] Performing Lab: [facility] [address] [facility] [address] MRSA SURVL NARES DNA Negative Negative Nov 05, 2024 08:34 PM [facility] MAGNESIUM PLASMA Specimen Type: PLASM A Comment: No hemolysis noted. Ordering Provider: IRON TAFOYA Report Released Date/Time: Nov 05, 2024 06:43 PM Reporting Lab: [address] [address] Performing Lab: [address] [address] MAGNESIUM 1.9 mg/dL 1.6-2.6 Nov 05, 2024 08:34 PM [facility] PHOSPHOROUS PLASMA Specimen Type: PLASM A Comment: No hemolysis noted. Ordering Provider: IRON TAFOYA Report Released Date/Time: Nov 05, 2024 06:43 PM Reporting Lab: [address] [address] Performing Lab: [address] [address] PHOSPHOROUS 3.7 mg/dL 2.3-4.7 Nov 05, 2024 08:34 PM [facility] COMPREHENSIVE METABOLIC PANEL PLASMA Specimen Type: PLASMA Comment: No hemolysis noted. Ordering Provider: IRON TAFOYA Report Released Date/Time: Nov 05, 2024 06:43 PM Reporting Lab: [address] [address] Performing Lab: [address] [address] CREATININE 1.02 mg/dL 0.7-1.3 UREA NITROGEN 19.8 [...] 73.8 >60 Nov 05, 2024 08:34 PM [facility] CBC BLOOD Specimen Type: BLOOD No comment entered. Ordering Provider: IRON TAFOYA Report Released Date/Time: Nov 05, 2024 06:43 PM Reporting Lab: [facility] [address] [place] [address] Performing Lab: [facility] [address] [facility] [address] WBC 11.1 10*3/uL 3.6-11.2 RBC 5.73 10*6/uL [...] and tobacco- related health factors from the [place] facility where the Encounter took place. Current Smoking Status This section includes the most current smoking, or tobacco-related health factor, from the [place] facility where the Encounter took place. Date/Time Current Smoking Status Comment Nuzhat bennett Oct 17, 2022 02:55 PM ORYX ADMIT TOBACCO SCREEN REFUSED [facility] Advance Directives: All historical and current Section Date Range: From patient's date of to the date document was created. This section includes ALL of a patient's completed or amended [place] Advance and Rescinded Directives. The entries below indicate that a directive exists for the patient, but an actual copy is not included with this document. The data comes from all [place] facilities. Date Advance Directives Provider Source Nov 03, 2022 ADVANCE DIRECTIVE DISCUSSION GIACOMO RAMIREZ [facility] Oct 30, 2022 ADVANCE DIRECTIVE ALEKSANDAR GRANADO Encounter Notes: All associated encounter notes This section contains the clinical notes associated to the Encounter. Date/Time Encounter Note(s) Provider Source Oct 19, 2024 09:12 AM NONVA NOTE: LOCAL TITLE: [facility]ITY [facility] SELF PRESENTING CARE COORD PLAN STANDARD TITLE: NONVA NOTE DATE OF NOTE: OCT 19, 2024@09:12 ENTRY DATE: OCT 22, 2024@09:12:17 AUTHOR: ZEYAD DSOUZA EXP COSIGNER: URGENCY: STATUS: COMPLETED COMMUNITY CARE-[facility]AR[facility] SELF PRESENTING CARE COORD PLAN 657 ST[address] Has ADDENDA Emergency Notification Intake Date Presenting to the Facility: Oct Method of Contact: Submitted to Centralized Call Center Notification ID: [id number] [facility] Referral #: [id number] Clinical Review [facility] Name: Hospital: [facility] Address: City: [place] State: [place] Zip Code: Phone : [facility] Facility Point of Contact: Name: Phone: Chief complaint: dementia, UTI Primary Diagnosis: Disposition Unknown at time of intake note entry EXCERPT FROM HOSPITAL NOTE BELOW Currently hospitalized. Per most recent progress note: PT IS 79 YEAR OLD MALE PRESENTING WITH AMS. DEMENTIA OF ALZHEIMERS -baseline of pt hard to obtain -CT scan noted hyper dense left MCA sign -Neurology consulted and suggested carotid doppler study and lipid profile d/t atrophy; also recc labs for b12 and folic acid level, TSH, and vit D -pt slightly more oriented and conversational that yesterday UTI -currently on ceftriaxone pending urine culture sensitivities, serum WBC wnl and no fever Alerting PCP team to this note for continuity of care-VIA TEAMS. Anticipated postacute care needs: /jessica FERNANDES RN REGISTERED NURSE Signed: 10/22/2024 09:23 10/28/2024 ADDENDUM STATUS: COMPLETED CONTINUED STAY REVIEW Contact Date: Oct Date of Admission: Oct Date of Procedure: Facility Name: Point of Contact Name: Point of Contact Dept: Point of Contact Phone: Point of Contact Fax Number: Method of Contact: Inpatient level of care required: Medicine EXCERPT FROM HOSPITAL NOTE BELOW Currently hospitalized. Per most recent progress note: no cong psych bed available yet Anticipated postacute care needs: /jessica FERNANDES RN REGISTERED NURSE Signed: 10/28/2024 13:56 11/03/2024 ADDENDUM STATUS: COMPLETED CONTINUED STAY REVIEW Contact Date: Oct Date of Admission: Oct Inpatient level of care required: Medicine EXCERPT FROM HOSPITAL NOTE BELOW Currently hospitalized. Per most recent progress note: VET C/O CHEST PAIN WAS GOING INTO AFIB W/RVR OVERNIGHT ON 11/02; TROP NEG, IV METOPROLOL GIVEN-RESOLVED. REMAINS SOMEWHAT CONFUSED BUT PLEASANT AND COOPERATIVE Anticipated postacute care needs: /jessica FERNANDES RN REGISTERED NURSE Signed: 11/03/2024 14:46 11/10/2024 ADDENDUM STATUS: COMPLETED Discharge Disposition Date of discharge: Oct Disposition Discharge to Comment: [place] [facility] DC TO [facility]. NO DC SUMMARY AVAILABLE AT THIS TIME; WILL UPLOAD WHEN AVAILABLE Alerting PCP team to this note for continuity of care-VIA TEAMS. /jessica FERNANDES RN REGISTERED NURSE Signed: 11/10/2024 08:40 12/16/2024 ADDENDUM STATUS: COMPLETED DC SUMMARY NOW AVAILABLE Transfer Transfer to other [facility] Higher level of care Facility Name: [facility] City: [place] State: [facility] PCP Team is currently coordinating patient care r/t this episode of care. Records r/t this episode of care sent for scanning. Discharge Summary Records:SHARED SECURELY WITH PACT RN AND SENT TO [facility] Hospital/discharge Summary (per discharge note): Shortly after he was discharged home to family members he was brought back by EMS due to altered mental status and aggressive behavior. CT of the head showed age-related changes and a questionable hyperdense left MCA sign. Carotid. Doppler study showed less than 50% stenosis in bilateral internal carotid arteries. Neurology consulted and patient was started on aricept and namenda. During admission patient had recurrence of the atrial fibrillation with RVR. 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 Patient to follow up with cardiology in the outpatient setting. Patient was diagnosed with a UTI during admission and was placed on IV antibiotics. Patient also developed urinary retention. Renal ultrasound was unremarkable. Remained on flomax with catheter in place. Urology consulted. Patient had an unsuccessful voiding trial and the catheter was replaced at that time. Throughout admission patient continued to intermittently go into atrial fibrillation. Patient transferred via ambulance in a stable condition to [facility] /rody/ ZEYAD FERNANDES RN REGISTERED NURSE Signed: 12/16/2024 14:48 ZEYAD DSOUZA [facility]
--- OUTSIDE RECORDS SUMMARY | 2025-02-12 21:23 | XMS_ITS | Encounter Summary ---
Author Name [facility] [place] [facility] Address [address] [place] [address] Care Team Providers Care Program Professional Name Role Phone SUKUMARGAGAN Primary Care Provider [...] Name Patient's Relationship to Policy Dickens [employer]ET[employer] [facility] (WNR) MEDICARE ADVANTAGE [facility] (WNR) Jul 09, 2018 [id number] SOO,PAKO IN PATIENT [employer] [facility] (WNR) MEDICARE ADVANTAGE [facility] (WNR) Jul 09, 2018 [id number] SOO,PAKO IN PATIENT Selected Encounter This section includes the information on record at [place] for the Encounter. Date/Time Encounter Type Encounter Description Reason Pro vider Source Oct 23, 2024 11:49 AM Outpatient Encounter GENERAL INTERNAL MEDICINE IHE Encounter Template Text not used by [place] Plan of Treatment: Future Appointments (+ 6 months) and Future Tests (+/- 45 days) The Plan of Treatment section includes future care activities for the patient [facility] [place] [facility] This section includes future appointments and future orders which are active, pending or scheduled. Future Appointments This section includes appointments that were scheduled to occur 6 months from the date of the Encounter, up to a maximum of 20 appointments. The data comes from all [place] treatment facilities. Appointment Date/Time Appointment Type Appointme nt Facility Name November 16, 2024 08:00 AM AMBULATORY - NONE [facility] December 01, 2024 10:00 AM AMBULATORY NONE [facility] December 03, 2024 10:[address] [facility] December 05, 2024 11:45 AM AMBULATORY - SURGERY [facility] Mar 24, 2025 10:00 AM AMBULATORY - MEDICINE [facility] Mar 24, 2025 10:01 AM AMBULATORY - MEDICINE [facility] Mar 24, 2025 11:00 AM AMBULATORY - NONE [facility] Lab Results: +/- 30 days of the encounter This section includes the Chemistry and Hematology Lab Results on record with [place] for the patient. Radiology Reports and Pathology Reports are provided separately, in subsequent sections. Lab Results This section contains the Chemistry/Hematology Results that were resulted 30 days before or 30 daysafter the date of the Encounter. Date/Time Source Result Type Result - Unit Interpretation Reference Range Specimen Type Comment November 11, 2024 06:48 AM [facility] MAGNESIUM PLASMA Specimen Type: PLASMA Comment: K result may show a positive bias due to hemolysis. Specimen slightly hemolyzed. Ordering Provider: CONNIE KOCH Report Released Date/Time: November 06, 2024 07:13 AM Reporting Lab: [facility] [address] [facility] [address] Performing Lab: [facility] [address] [address] MAGNESIUM 1.9 mg/dL 1.6-2.6 November 11, 2024 06:48 AM [facility] RENAL PANEL PLASMA Specimen Type: PLASM A Comment: K result may show a positive bias due to hemolysis. Specimen slightly hemolyzed. Ordering Provider: CONNIE KOCH Report Released Date/Time: November 06, 2024 07:13 AM Reporting Lab: [address] [address] Performing Lab: [address] [address] CREATININE 0.89 mg/dL 0.7-1.3 UREA NITROGEN 16.9 mg/dL 9.0-25.0 GLUCOSE 99 mg/dL 72-99 SODIUM 136 meq/L 136-145 POTASSIUM 4.3 meq/L 3.5-5 CHLORIDE 104 meq/L 98-107 CARBON DIOXIDE 25 meq/L 22-31 CALCIUM 8.8 mg/dL 8.4-10.4 PHOSPHOROUS 3.6 mg/dL 2.3-4.7 ALBUMIN 3.5 g/dL 3.4-5 EGFR (CKD-EPI 2020) 86.1 >60 November 11, 2024 06:48 AM [facility] CBC BLOOD Specimen Type: BLOOD No comment entered. Ordering Provider: CONNIE KOCH Report Released Date/Time: November 06, 2024 07:13 AM Reporting Lab: [address] [address] Performing Lab: [address] [address] WBC 9.2 10*3/uL 3.6-11.2 RBC 5.85 10*6/uL [...] 0.00-0. 20 November 10, 2024 06:51 AM [facility] MAGNESIUM PLASMA Specimen Type: PLASM A Comment: No hemolysis noted. Ordering Provider: CONNIE KOCH Report Released Date/Time: November 06, 2024 07:13 AM Reporting Lab: [facility] [address] [address] Performing Lab: [address] [address] MAGNESIUM 2.1 mg/dL 1.6-2.6 November 10, 2024 06:51 AM [facility] RENAL PANEL PLASMA Specimen Type: PLASM A Comment: No hemolysis noted. Ordering Provider: CONNIE KOCH Report Released Date/Time: November 06, 2024 07:13 AM Reporting Lab: [facility] [address] [address] Performing Lab: [place] [address] [address] [address] CREATININE 0.86 mg/dL 0.7-1.3 UREA NITROGEN 18.8 mg/dL 9.0-25.0 GLUCOSE 100 mg/dL H 72-99 SODIUM 137 meq/L 136-145 POTASSIUM 4.2 meq/L 3.5-5 CHLORIDE 104 meq/L 98-107 CARBON DIOXIDE 26 meq/L 22-31 CALCIUM 9.2 mg/dL 8.4-10.4 PHOSPHOROUS 3.6 mg/dL 2.3-4.7 ALBUMIN 3.8 g/dL 3.4-5 EGFR (CKD-EPI 2020) 87.0 >60 November 10, 2024 06:51 AM [facility] CBC BLOOD Specimen Type: BLOOD No comment entered. Ordering Provider: CONNIE KOCH Report Released Date/Time: November 06, 2024 07:13 AM Reporting Lab: [address] [address] Performing Lab: [place] [address] [address] [address] WBC 9.0 10*3/uL 3.6-11.2 RBC 5.85 10*6/uL [...] 0.00-0. 20 November 09, 2024 08:22 AM [facility] MAGNESIUM PLASMA Specimen Type: PLASM A Comment: No hemolysis noted. Ordering Provider: CONNIE KOCH Report Released Date/Time: November 06, 2024 07:13 AM Reporting Lab: [address] [address] Performing Lab: [address] [address] MAGNESIUM 2.1 mg/dL 1.6-2.6 November 09, 2024 08:22 AM [facility] RENAL PANEL PLASMA Specimen Type: PLASM A Comment: No hemolysis noted. Ordering Provider: CONNIE KOCH Report Released Date/Time: November 06, 2024 07:13 AM Reporting Lab: [address] [address] Performing Lab: [address] [address] CREATININE 0.86 mg/dL 0.7-1.3 UREA NITROGEN 18.6 mg/dL 9.0-25.0 GLUCOSE 87 mg/dL 72-99 SODIUM 138 meq/L 136-145 POTASSIUM 4.5 meq/L 3.5-5 CHLORIDE 104 meq/L 98-107 CARBON DIOXIDE 27 meq/L 22-31 CALCIUM 9.0 mg/dL 8.4-10.4 PHOSPHOROUS 3.2 mg/dL 2.3-4.7 ALBUMIN 3.5 g/dL 3.4-5 EGFR (CKD-EPI 2020) 87.0 >60 November 09, 2024 08:22 AM [facility] CBC BLOOD Specimen Type: BLOOD Comment: prev diff 11/07/24. Ordering Provider: CONNIE KOCH Report Released Date/Time: November 06, 2024 07:13 AM Reporting Lab: [address] [address] Performing Lab: [address] [address] WBC 10.7 10*3/uL 3.6-11.2 RBC 5.84 10*6/uL [...] 0.00-0. 20 November 08, 2024 09:04 AM [facility] MAGNESIUM PLASMA Specimen Type: PLASM A Comment: No hemolysis noted. Ordering Provider: CONNIE KOCH Report Released Date/Time: November 06, 2024 07:13 AM Reporting Lab: [facility] [address] [place] [phone] Performing Lab: [address] [address] MAGNESIUM 1.9 mg/dL 1.6-2.6 November 08, 2024 09:04 AM [facility] RENAL PANEL PLASMA Specimen Type: PLASM A Comment: No hemolysis noted. Ordering Provider: CONNIE KOCH Report Released Date/Time: November 06, 2024 07:13 AM Reporting Lab: [address] [address] Performing Lab: [address] [address] CREATININE 0.86 mg/dL 0.7-1.3 UREA NITROGEN 17.8 mg/dL 9.0-25.0 GLUCOSE 141 mg/dL H 72-99 SODIUM 137 meq/L 136-145 POTASSIUM 4.4 meq/L 3.5-5 CHLORIDE 103 meq/L 98-107 CARBON DIOXIDE 26 meq/L 22-31 CALCIUM 8.9 mg/dL 8.4-10.4 PHOSPHOROUS 3.2 mg/dL 2.3-4.7 ALBUMIN 3.6 g/dL 3.4-5 EGFR (CKD-EPI 2020) 87.0 >60 November 08, 2024 09:04 AM [facility] CBC BLOOD Specimen Type: BLOOD No comment entered. Ordering Provider: CONNIE KOCH Report Released Date/Time: November 06, 2024 07:13 AM Reporting Lab: [address] [address] Performing Lab: [address] [address] WBC 10.1 10*3/uL 3.6-11.2 RBC 5.77 10*6/uL [...] 0.00-0. 20 November 07, 2024 06:52 AM [facility] MAGNESIUM PLASMA Specimen Type: PLASM A Comment: No hemolysis noted. Ordering Provider: CONNIE KOCH Report Released Date/Time: November 06, 2024 07:13 AM Reporting Lab: [address] [address] Performing Lab: [address] [address] MAGNESIUM 2.0 mg/dL 1.6-2.6 November 07, 2024 06:52 AM [facility] RENAL PANEL PLASMA Specimen Type: PLASM A Comment: No hemolysis noted. Ordering Provider: CONNIE KOCH Report Released Date/Time: November 06, 2024 07:13 AM Reporting Lab: [address] [address] Performing Lab: [address] [address] CREATININE 1.00 mg/dL 0.7-1.3 UREA NITROGEN 19.3 mg/dL 9.0-25.0 GLUCOSE 123 mg/dL H 72-99 SODIUM 138 meq/L 136-145 POTASSIUM 4.7 meq/L 3.5-5 CHLORIDE 102 meq/L 98-107 CARBON DIOXIDE 27 meq/L 22-31 CALCIUM 8.9 mg/dL 8.4-10.4 PHOSPHOROUS 4.1 mg/dL 2.3-4.7 ALBUMIN 3.8 g/dL 3.4-5 EGFR (CKD-EPI 2020) 75.6 >60 November 07, 2024 06:52 AM [facility] CBC BLOOD Specimen Type: BLOOD No comment entered. Ordering Provider: CONNIE KOCH Report Released Date/Time: November 06, 2024 07:13 AM Reporting Lab: [facility] [address] [address] Performing Lab: [address] [address] WBC 12.6 10*3/uL H 3.6-11.2 RBC 5.50 [...] 2.10-8.00 November 07, 2024 06:35 AM [facility] DIGOXIN PLASMA Specimen Type: PLASM A No comment entered. Ordering Provider: CONNIE KOCH Report Released Date/Time: November 07, 2024 08:41 AM Reporting Lab: [address] [address] Performing Lab: [address] [address] DIGOXIN <0.15 ng/mL L 0.8-2 November 06, 2024 07:05 AM [facility] MAGNESIUM PLASMA Specimen Type: PLASM A Comment: No hemolysis noted. Ordering Provider: MICH RAMIREZ Report Released Date/Time: Nov 05, 2024 11:04 PM Reporting Lab: [address] [address] Performing Lab: [address] [address] MAGNESIUM 1.9 mg/dL 1.6-2.6 November 06, 2024 07:05 AM [facility] RENAL PANEL PLASMA Specimen Type: PLASM A Comment: No hemolysis noted. Ordering Provider: MICH RAMIREZ Report Released Date/Time: Nov 05, 2024 11:04 PM Reporting Lab: [address] [address] Performing Lab: [address] [address] CREATININE 0.88 mg/dL 0.7-1.3 UREA NITROGEN 18.0 mg/dL 9.0-25.0 GLUCOSE 101 mg/dL H 72-99 SODIUM 136 meq/L 136-145 POTASSIUM 4.1 meq/L 3.5-5 CHLORIDE 99 meq/L 98-107 CARBON DIOXIDE 30 meq/L 22-31 CALCIUM 8.8 mg/dL 8.4-10.4 PHOSPHOROUS 4.1 mg/dL 2.3-4.7 ALBUMIN 3.1 g/dL L 3.4-5 EGFR (CKD-EPI 2020) 86.4 >60 November 06, 2024 07:05 AM [facility] CBC BLOOD Specimen Type: BLOOD No comment entered. Ordering Provider: MICH RAMIREZ Report Released Date/Time: Nov 05, 2024 11:04 PM Reporting Lab: [address] [address] Performing Lab: [address] [address] WBC 10.3 10*3/uL 3.6-11.2 RBC 5.27 10*6/uL [...] 0.00-0. 20 November 06, 2024 03:00 AM [facility] MRSA SURVL NARES DNA NARES Specimen Type: [...] 05, 2024 06:43 PM Reporting Lab: [address] [address] Performing Lab: [facility] [place] [address] [address] MRSA SURVL NARES DNA Negative Negative Nov 05, 2024 08:34 PM [facility] MAGNESIUM PLASMA Specimen Type: PLASM A Comment: No hemolysis noted. Ordering Provider: IRON TAFOYA Report Released Date/Time: Nov 05, 2024 06:43 PM Reporting Lab: [place] [address] Performing Lab: [place] [phone] MAGNESIUM 1.9 mg/dL 1.6-2.6 Nov 05, 2024 08:34 PM [facility] PHOSPHOROUS PLASMA Specimen Type: PLASM A Comment: No hemolysis noted. Ordering Provider: IRON TAFOYA Report Released Date/Time: Nov 05, 2024 06:43 PM Reporting Lab: [place] [phone] Performing Lab: [place] [phone] PHOSPHOROUS 3.7 mg/dL 2.3-4.7 Nov 05, 2024 08:34 PM [facility] CBC BLOOD Specimen Type: BLOOD No comment entered. Ordering Provider: IRON TAFOYA Report Released Date/Time: Nov 05, 2024 06:43 PM Reporting Lab: [address] [address] Performing Lab: [place] [phone] WBC 11.1 10*3/uL 3.6-11.2 RBC 5.73 10*6/uL [...] 0.00-0. 20 Nov 05, 2024 08:34 PM [facility] COMPREHENSIVE METABOLIC PANEL PLASMA Specimen Type: PLASMA Comment: No hemolysis noted. Ordering Provider: IRON TAFOYA Report Released Date/Time: Nov 05, 2024 06:43 PM Reporting Lab: [address] [address] Performing Lab: [address] [address] CREATININE 1.02 mg/dL 0.7-1.3 UREA NITROGEN 19.8 [...] and tobacco- related health factors from the [place] facility where the Encounter took place. Current Smoking Status This section includes the most current smoking, or tobacco-related health factor, from the [place] facility where the Encounter took place. Date/Time Current Smoking Status Comment Facil donald Oct 17, 2022 02:55 PM ORYX ADMIT TOBACCO SCREEN REFUSED [facility] Advance Directives: All historical and current Section Date Range: From patient's date of to the date document was created. This section includes ALL of a patient's completed or amended [place] Advance and Rescinded Directives. The entries below indicate that a directive exists for the patient, but an actual copy is not included with this document. The data comes from all [place] facilities. Date Advance Directives Provider Source Nov 03, 2022 ADVANCE DIRECTIVE DISCUSSION GIACOMO RAMIREZ [facility] Oct 30, 2022 ADVANCE DIRECTIVE VANNESAALEKSANDARRENEE Shanks Encounter Notes: All associated encounter notes This section contains the clinical notes associated to the Encounter. Date/Time Encounter Note(s) Provider Source Oct 23, 2024 11:50 AM NONVA NOTE: LOCAL TITLE: UTILIZATION REVIEW STL STANDARD TITLE: NONVA NOTE DATE OF NOTE: OCT 23, 2024@11:50 ENTRY DATE: OCT 23, 2024@11:50:11 AUTHOR: MIRANDA SCHNEIDER EXP COSIGNER: URGENCY: STATUS: COMPLETED UTILIZATION REVIEW STL Has ADDENDA TC from ADAM Pardo at [facility] with request for Cong Psych bed. Continuous flow IV was dc'd this morning and PO abx's started. Explained that had to off all IV fluids for 24 hours and eating and drinking on own and taking all meds po before review for cong psych. Requested call back on Sunday if bed still needed and provided direct office number. /rody/ Taty Schneider RN Registered Nurse Signed: 10/23/2024 11:53 10/23/2024 ADDENDUM STATUS: COMPLETED FAX RECEIVED FROM RHODA AT [place] REQUESTING CONG PSYCH BED. THIS NURSE CONTACTED RHODA AT [facility], WHOM STATED THE FAX WAS SENT PRIOR TO HER SPEAKING WITH TATY IN IN PREVIOUS CONVERSATION. SHE UNDERSTANDS REQUEST AND WILL F/U ON SUNDAY. NO FURTHER NEEDS NEEDED FROM THIS NURSE. /rody/ ZEYAD FERNANDES RN REGISTERED NURSE Signed: 10/23/2024 12:24 MIRANDA SCHNEIDER [facility]
--- OUTSIDE RECORDS SUMMARY | 2025-02-12 21:23 | XMS_ITS | Encounter Summary ---
Author Name [facility] [place] [facility] Address [address] [place] [address] Care Team Providers Care Home Energy Consultant Name Role Phone SUKUMARGAGAN Primary Care Provider [...] Dickens's Name Patient's Relationship to Policy Dickens [facility] (WNR) MEDICARE [facility] ([facility]) Jul 09, 2018 [id number] SOOGIDEON BurgosV IN PATIENT [facility] (WN) MEDICARE ADVANTAGE [facility] ([facility]) Jul 09, 2018 [id number] [phone] [place]O [place] PATIENT Selected Encounter This section includes the information on record at [place] for the Encounter. Date/Time Encounter Type Encounter Description Reason Provider Source Jun 02, 2024 01:00 PM Outpatient Encounter PRIMARY CARE/MEDICINE ICD-10-CM Z00.01 Encounter for general adult medical exam w abnormal findings JAN ELLISON [facility] Encounter Template Text not used by [place] Assessments - Encounter Diagnoses This section includes the primary and secondary diagnoses documented for the Encounter. Date/Time Primary/Secondary Diagnosis Diagnosis Name Provider Source Jun 02, 2024 01:41 PM PRIMARY Encounter for general adult medical exam w abnormal findings JAN ELLISON [facility] Jun 02, 2024 01:41 PM SECONDARY Benign prostatic hyperplasia with lower urinary tract symp JAN ELLISON [facility] Jun 02, 2024 01:41 PM SECONDARY Essential (primary) hypertension JAN ELLISON [facility] Jun 02, 2024 01:41 PM SECONDARY Insomnia, unspecified JAN ELLISON [facility] Jun 02, 2024 01:41 PM SECONDARY Other amnesia JAN ELLISON [facility] Plan of Treatment: Future Appointments (+ 6 months) and Future Tests (+/- 45 days) The Plan of Treatment section includes future care activities for the patient from all [place] treatmentfacilities. This section includes future appointments and future orders which are active, pending or scheduled. Future Appointments This section includes appointments that were scheduled to occur 6 months from the date of the Encounter, up to a maximum of 20 appointments. The data comes from all [place] treatment facilities. Appointment Date/Time Appointment Type Appointme nt Facility Name November 16, 2024 08:00 AM AMBULATORY - NONE [facility] Lab Results: +/- 30 days of the encounter This section includes the Chemistry and Hematology Lab Results on record with [place] for the patient. Radiology Reports and Pathology Reports are provided separately, in subsequent sections. Lab Results This section contains the Chemistry/Hematology Results that were resulted 30 days before or 30 daysafter the date of the Encounter. Date/Time Source Result Type Result - Unit Interpretation Reference Range Specimen Type Comment Jun 02, 2024 01:44 PM [facility] VITAMIN D 25-HYDROXY SERUM Specimen Type: SERUM Comment: Deficiency <20, Insufficiency 20-30, Sufficiency 30-100, Toxicity >100 ng/mL Ordering Provider: JAN ELLISON Report Released Date/Time: May 29, 2024 03:33 PM Reporting Lab: [facility] [address] [facility] [id number] Performing Lab: [facility] [address] [facility] [id number] VITAMIN D 25-HYDROXY 36.60 ng/mL 30-100 Jun 02, 2024 01:44 PM [facility] THYROID CASCADE PANEL SERUM Spe cimen Type: SERUM Comment: Deficiency <20, Insufficiency 20-30, Sufficiency 30-100, Toxicity >100 ng/mL Ordering Provider: JAN ELLISON Report Released Date/Time: May 29, 2024 03:33 PM Reporting Lab: [place] [id number] Performing Lab: [place] [id number] TSH3 ULTRA EIA 1.869 u[IU]/mL 0.550-4.78 0 Jun 02, 2024 01:44 PM [facility] A1C % BLOOD Specimen Type: BLOO D Comment: Normal: < or = 5.6% Pre-diabetes: 5.7-6.4% Diabetes Mellitus: > or = 6.5% Values obtained from A1C measurements can vary. For typical A1C assays, a reported value of 7.0 could actually be between 6.72 and 7.28 if measured by a reference method. A reported value of 9.0 could actually be between 8.73 and 9.27. Ref: http://www.ngsp.org/CAPdata.asp Ordering Provider: JNA ELLISON Report Released Date/Time: May 29, 2024 03:33 PM Reporting Lab: [address] [address] Performing Lab: [place] [id number] A1C % 5.7 H 0.0-5.6 Jun 02, 2024 01:44 PM [facility] LIPID PNL PLASMA Specimen T ype: PLASMA Comment: Low-risk levels (desirable) <200 mg/dL Moderate-risk levels (borderline) 200-239 mg/dL High-risk levels: >= 240 mg/dL Normal: <150 mg/dL -Borderline High: 150-199 mg/dL -High: 200-499 mg/dL -Very High: >500 mg/dL eGFR was calculated using the CKD-EPI Creatinine (2020) equation. Optimal: <100 mg/dL -Near Optimal/Above Optimal: 100-129 mg/dL -Borderline High: 130-159 mg/dL -High: 160-189 mg/dL -Very High: >=190 mg/dL Ordering Provider: JAN ELLISON Report Released Date/Time: May 29, 2024 03:33 PM Reporting Lab: [address] [id number] Performing Lab: [address] [address] DIR. HDL 36 mg/dL L >=60 TRIGLYCERIDES 171 mg/dL H See Comment DIR LDL canc CHOL 190 mg/dL See Comment LDL (CALCULATED) 120 mg/dL H See Comment Jun 02, 2024 01:44 PM [facility] COMPREHENSIVE PNL PLASMA Specime n Type: PLASMA Comment: Low-risk levels (desirable) <200 mg/dL Moderate-risk levels (borderline) 200-239 mg/dL High-risk levels: >= 240 mg/dL Normal: <150 mg/dL -Borderline High: 150-199 mg/dL -High: 200-499 mg/dL -Very High: >500 mg/dL eGFR was calculated using the CKD-EPI Creatinine (2020) equation. Optimal: <100 mg/dL -Near Optimal/Above Optimal: 100-129 mg/dL -Borderline High: 130-159 mg/dL -High: 160-189 mg/dL -Very High: >=190 mg/dL Ordering Provider: JAN ELLISON Report Released Date/Time: May 29, 2024 03:33 PM Reporting Lab: [address] [address] Performing Lab: [address] [address] ANION GAP 6 mmol/L 5-15 EGFR 81 mL/min/{1.73_m2} >= 60 GLUCOSE 137 mg/dL H 70-99 POTASSIUM 4.2 mmol/L 3.5-4.7 SODIUM 141 mmol/L 136-145 BILI,TOTAL 1.1 mg/dL 0.2-1.2 PROTEIN, TOTL 6.7 g/dL 5.7-8.2 ALBUMIN 4.4 g/dL 3.4-5.0 ALKAL PHOS 36 U/L L 45-117 ALT 24 U/L 10-65 AST 23 U/L 10-37 UREA NITROGEN 16 mg/dL 7-21 CALCIUM, TOTAL 9.9 mg/dL 8.7-10.4 CO2 30 mmol/L 21-32 CHLORIDE 105 mmol/L 98-109 CREATININE 0.94 mg/dL 0.73-1.18 Jun 02, 2024 01:44 PM [facility] CBC W/DIFF BLOOD Specimen T ype: BLOOD No comment entered. Ordering Provider: JAN ELLISON Report Released Date/Time: May 29, 2024 03:33 PM Reporting Lab: [facility] [address] [facility] [address] Performing Lab: [facility] [address] [facility] [address] WBC 7.9 10*3/uL 4.0-11.0 RBC 5.67 10*6/uL 4.20-5.70 HGB 17.3 g/dL H 13.0-17.0 HCT 50.6 40.0-51.0 MCV 89.2 fL 82.0-99.0 MCH 30.5 pg 27.0-34.0 MCHC 34.2 g/dL 31.0-37.0 MPV 10.3 fL 8.0-12.[address] 245 10*3/uL 130-400 RDW-CV 14.0 < 15.0 NEUTROPHILS% 65.0 LYMPHS% 22.3 MONOS% 10.2 EOS% 1.3 BASOS% 0.8 IG% 0.4 NEUTROPHILS# 5.2 10*3/uL 1.5-8.0 LYMPHS# 1.8 10*3/uL 1.0-4.0 MONOS# 0.8 10*3/uL 0.2-1.0 EOS# 0.1 10*3/uL 0.0-0.4 BASOS# 0.1 10*3/uL 0.0-0.2 IG# <0.1 10*3/uL 0.0-0.5 NRBC% 0.0 /100{WBCs} 0.0-0.2 NRBC# <0.01 10*3/uL 0.00-0.01 Vital Signs: All taken on the encounter date This section contains inpatient and outpatient Vital Signs collected on the date of the Encounter. Date/Time Temperature Pulse Blood Pressure Respiratory Rate SP02 Pain Height Weight Body Mass Index Source Jun 02, 2024 01:18 PM 124/69 [facility] Jun 02, 2024 12:49 PM 98.8 106 146/67 20 97 0 218 31 [facility] Social History: Smoking Status (Most current) and Tobacco Use (All prior to encounter date) This section includes the most current, and the historical, smoking and tobacco- related health factors from the [place] facility where the Encounter took place. Current Smoking Status This section includes the most current smoking, or tobacco-related health factor, from the [place] facility where the Encounter took place. Date/Time Current Smoking Status Comment Nuzhat ity Jun 02, 2024 01:00 PM VA-TOBACCO NEVER USED CIGARETTES [facility] Tobacco Use History This section includes a history of the smoking, or tobacco-related health factors, that were collected on or before the date of the Encounter. The data comes from the [place] facility where the Encounter took place. Date/Time Smoking Status/Tobacco Use Comment F acility Jun 02, 2024 01:00 PM VA-TOBACCO NEVER USED OTHER TYPE [facility] May 12, 2022 02:30 PM VA-TOBACCO FORMER USER [facility] May 12, 2022 02:30 PM VA-TOBACCO QUIT 15 YRS OR MORE [facility] May 02, 2021 01:00 PM VA-TOBACCO FORMER USER [facility] May 02, 2021 01:00 PM VA-TOBACCO QUIT 15 YRS OR MORE [facility] Advance Directives: All historical and current Section Date Range: From patient's date of to the date document was created. This section includes ALL of a patient's completed or amended [place] Advance and Rescinded Directives. The entries below indicate that a directive exists for the patient, but an actual copy is not included with this document. The data comes from all [facility]. Date Advance Directives Provider Source Nov 03, 2022 ADVANCE DIRECTIVE DISCUSSION GIACOMO RAMIREZ [facility] Oct 30, 2022 ADVANCE DIRECTIVE ALEKSANDAR GRANADO [facility] Encounter Notes: All associated encounter notes This section contains the clinical notes associated to the Encounter. Date/Time Encounter Note(s) Provider Source Jun 02, 2024 01:41 PM PHYSICIAN NOTE: LOCAL TITLE: PROVIDER/MEDICATION RECONCILIATION STANDARD TITLE: PHYSICIAN NOTE DATE OF NOTE: JUN 02, 2024@13:41 ENTRY DATE: JUN 02, 2024@13:41:55 AUTHOR: JAN ELLISON EXP COSIGNER: URGENCY: STATUS: COMPLETED DEPARTMENT OF [facility] [address] [place], [place] [address] ALEXEI VANN JUN 02, [address] [place] [id number] The following medication list was reviewed with the patient/caregiver: MRT5 - Allergies/ADRs FACILITY ALLERGY/ADR -------- [facility] [place] ACETAMINOPHEN/PROPOXYPHENE [facility] [place] PENICILLIN [facility] [place] PSEUDOEPHEDRINE [facility] [place] PSEUDOEPHEDRINE/TRIPROLIDI [place] MRR1 - Med Reconciliation INCLUDED IN THIS LIST: Alphabetical list of active outpatient prescriptions dispensed from this [place] (local) and dispensed from another [place] or [facility] facility (remote) as well as inpatient orders (local pending and active), local clinic medications, locally documented non-VA medications, and local prescriptions that have or been discontinued in the past 90 days. Non-VA Meds Last Documented On: May 02, 2021 NOTE The display of VA prescriptions dispensed from another [place] or DoD facility (remote) is limited to active outpatient prescription entries matched to National Drug File at the originating site and may not include some items such as investigational drugs, compounds, etc. NOT INCLUDED IN THIS LIST: Medications self-entered by the patient into personal health records (i.e. [employer]) are NOT included in this list. Non-VA medications documented outside this [place], remote inpatient orders (regardless of status) and remote clinic medications are NOT included in this list. The patient and provider must always discuss medications the patient is taking, regardless of where the medication was dispensed or obtained. OUTPT ASPIRIN 81MG EC TAB (Status = ) TAKE ONE TABLET BY MOUTH EVERY DAY Rx# [id number] Last Released: 04/04/24 Qty/Days Supply: 120/90 Rx Expiration Date: 05/30/24 Refills Remainin Indication: TO PREVENT A STROKE OR HEART ATTACK OUTPT AZELASTINE 137MCG/SPRAY 200D NASAL INHL (Status = ) SPRAY 1 PUFF IN EACH NOSTRIL TWICE A DAY Rx# [id number] Last Released: 02/04/24 Qty/Days Supply: 08/07 Rx Expiration Date: 05/30/24 Refills Remainin Indication: FOR ALLERGIC RHINITIS OUTPT AZELASTINE 137MCG/SPRAY 200D NASAL INHL (Status = Pending) SPRAY 1 PUFF IN EACH NOSTRIL TWICE A DAY Renewed from Rx# [id number] Qty/Days Supply: 08/07 Login Date: 06/02/24 Refills Ordered: 11 Non-VA DIAZEPAM 5MG TAB TAKE ONE TABLET BY MOUTH TWO TIMES A DAY NEEDED Medication prescribed by non-VA provider. OUTPT DICLOFENAC NA 1% TOP GEL (Status = ) APPLY 4 GRAMS TOPICALLY FOUR TIMES A DAY -DON'T EXCEED 16 GRAMS DAILY TO ANY AFFECTED LEG AREA. DON'T EXCEED 8 GRAMS DAILY TO ANY AFFECTED ARM AREA. DON'T EXCEED A TOTAL DOSE OF 32 GRAMS DAILY OVER ALL AREAS. *USE DOSING CARD TO MEASURE DOSE.* Rx# [id number] Last Released: 02/04/24 Qty/Days Supply: Rx Expiration Date: 05/30/24 Refills Remainin Indication: FOR PAIN AND INFLAMMATION OUTPT DONEPEZIL HCL 10MG TAB (Status = Discontinued) TAKE ONE TABLET BY MOUTH AT BEDTIME Rx# [id number] Last Released: 04/10/24 Qty/Days Supply: Rx Expiration Date: 05/30/24 Refills Remainin Indication: FOR MEMORY OUTPT DONEPEZIL HCL 10MG TAB (Status = Active) TAKE ONE TABLET BY MOUTH AT BEDTIME Rx# [id number] Last Released: 05/09/24 Qty/Days Supply: Rx Expiration Date: 05/07/25 Refills Remainin Indication: FOR MEMORY OUTPT LOSARTAN 25MG TAB (Status = Discontinued) TAKE ONE TABLET BY MOUTH EVERY EVENING Rx# [id number] Last Released: 04/10/24 Qty/Days Supply: Rx Expiration Date: 05/30/24 Refills Remainin Indication: FOR BLOOD PRESSURE OUTPT LOSARTAN 25MG TAB (Status = Active) TAKE ONE TABLET BY MOUTH EVERY EVENING Rx# [id number] Last Released: 05/09/24 Qty/Days Supply: Rx Expiration Date: 05/07/25 Refills Remainin Indication: FOR BLOOD PRESSURE OUTPT METOPROLOL TARTRATE 50MG TAB (Status = ) TAKE ONE TABLET BY MOUTH TWICE A DAY WITH MEALS FOR BLOOD PRESSURE Rx# [id number] Last Released: 04/26/24 Qty/Days Supply: Rx Expiration Date: 05/30/24 Refills Remainin Indication: FOR BLOOD PRESSURE OUTPT METOPROLOL TARTRATE 50MG TAB (Status = Pending) TAKE ONE TABLET BY MOUTH TWICE A DAY WITH MEALS FOR BLOOD PRESSURE Renewed from Rx# [id number] Qty/Days Supply: Login Date: 06/02/24 Refills Ordered: 11 OUTPT MUPIROCIN 2% OINT (Status = Active) APPLY SMALL AMOUNT TOPICALLY TWICE A DAY FOR SKIN CONDITION Rx# [id number] Last Released: 02/08/24 Qty/Days Supply: Rx Expiration Date: 02/04/25 Refills Remainin OUTPT OXYBUTYNIN CHLORIDE 10MG SA TAB (Status = ) TAKE ONE TABLET BY MOUTH EVERY DAY FOR OVERACTIVE BLADDER Rx# [id number] Last Released: 04/04/24 Qty/Days Supply: Rx Expiration Date: 05/30/24 Refills Remainin OUTPT OXYBUTYNIN CHLORIDE 10MG SA TAB (Status = Pending) TAKE ONE TABLET BY MOUTH EVERY DAY FOR OVERACTIVE BLADDER Renewed from Rx# [id number] Qty/Days Supply: Login Date: 06/02/24 Refills Ordered: 3 OUTPT TRAZODONE HCL 50MG TAB (Status = Active) TAKE ONE TABLET BY MOUTH AT BEDTIME Rx# [id number] Last Released: 02/04/24 Qty/Days Supply: Rx Expiration Date: 09/24/24 Refills Remainin Indication: FOR SLEEP OUTPT TRAZODONE HCL 50MG TAB (Status = Pending) TAKE ONE TABLET BY MOUTH AT BEDTIME Renewed from Rx# [id number] Qt/ Supply: Login Date: 06/02/24 Refills Ordered: 3 SUPPLIES Potential risks, benefits, and alternative to medications prescribed were discussed with /caregiver who was given an opportunity to ask questions, which were answered to the best of my ability and seemingly to their satisfaction. Donnellson/caregiver was/were instructed to contact provider (means provided) with any concerns or questions. A list of reconciled medications was provided to the Donnellson/caregiver. /rody/ JAN ELLISON Physician Warp Splitter Date printed: JUN 02, 2024 13:49 [facility] JAN ELLISON [facility] Jun 02, 2024 01:11 PM PRIMARY CARE NOTE: LOCAL TITLE: [facility] STANDARD TITLE: PRIMARY CARE NOTE DATE OF NOTE: JUN 02, 2024@13:11 ENTRY DATE: JUN 02, 2024@13:11:47 AUTHOR: JAN ELLISON EXP COSIGNER: URGENCY: STATUS: COMPLETED HPI: 79 MALE is here for annual exam. He has an outside PCP but unsure of the provider. HTN: BP controlled. He is compliant with meds. Checking BP at home and reports normal readings. Denies diet changes. He frequently orders food from [employer]. He does stay active with yardwork. He is doing more around the house as his son moved out a couple weeks ago. He denies chst pain, sob, edema, RHODES. Dementia: He ntoes some memory issues and has been told he repeats stories. He denies any mood changes. Sleep is interrupted by the dogs but he would like to try trazodone. He is completing ADLs on his own. Still occasionally drives if local. Declines SW referral OAB: Using oxybutinin as needed == ROS: GENERAL: Patient denies fever, chills, weight loss CARDIOVASCULAR: Patient denies chest pain, palpitations, edema PULMONARY: Patient denies shortness of breath or cough GASTROINTESTINAL: Patient denies nausea, vomiting, or abdominal pain GENITOURINARY: Patient denies dysuria or urinary frequency MUSCULOSKELETAL: Patient denies myalgias or arthralgias SKIN: Patient denies rashes, pruritus, or wounds NEUROLOGY: Patient denies headache, dizziness, syncope, numbness/tingling/weakness of extremities PSYCH: Patient denies recent changes in mood or sleep issues == Social Hx: Currently lives alone Tobacco: Denies Etoh: Denies MJ/Drug Use: Denies == PMHx includes but is not limited to: Active problems - Computerized Problem List is the source for the following: PROBLEM 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 Neurocognitive disorder 3. Memory impairment 4. Insomnia 5. Benign essential hypertension 6. AR - Allergic rhinitis 7. AF - Atrial fibrillation 8. Benign prostatic hyperplasia without outflow obstruction 9. OA - Osteoarthritis == ALLERGIES: PENICILLIN, SUDAFED MEDS: Active Outpatient Medications (including Supplies): Active Outpatient Medications Status 1) DONEPEZIL HCL 10MG TAB TAKE ONE TABLET BY MOUTH AT ACTIVE BEDTIME 2) LOSARTAN 25MG TAB TAKE ONE TABLET BY MOUTH EVERY ACTIVE EVENING 3) MUPIROCIN 2% OINT APPLY SMALL AMOUNT TOPICALLY TWICE ACTIVE A DAY FOR SKIN CONDITION 4) TRAZODONE HCL 50MG TAB TAKE ONE TABLET BY MOUTH AT ACTIVE BEDTIME Active Non-VA Medications Status 1) Non-VA DIAZEPAM 5MG TAB 5MG MOUTH TWO TIMES A DAY ACTIVE NEEDED 5 Total Medications == VITAL SIGNS: Temperature: 98.8 F [37.1 C] (06/02/2024 12:49) Pulse: 106 (06/02/2024 12:49) Respirations: 20 (06/02/2024 12:49) BP: 124/69 (06/02/2024 13:18) Weight: 218 lb [98.88 kg] (06/02/2024 12:49) Height: 70 in [177.8 cm] (05/02/2021 13:31) BMI: BMI: - NO HEIGHTS FOUND == EXAM: Gen: NAD, VSS, afebrile, well-nourished and groomed, not obese or too thin HEENT: Non icteric sclera, EOMI, TMs normal bilat, MMM, oropharynx clear Neck: Supple, no adenopathy. Thyroid without masses. CV: RRR S1/2, No M/R/G Pulm: CTAB, No wheezing or crackles, Normal inspiratory effort on RA Abd: S/NT/ND, +BS x 4 quadrants. No masses, hepatolmegaly, splenomegaly. Extremities: +1 pitting edema LE bilat, Pedal pulses intact bilat. Steady gait. Neuro: AAO x3, speech clear, moves all extremities, no focal deficits. Psych: good mood and affect, no suicidal or homicidal ideation, no immediate mental health needs == Assessment/Plan: 1. Annual exam: Continue routine care 2. Hypertension: Encouraged routine monitoring of blood pressure. Discussed lifestyle changes with diet and exercise. Encouraged low salt intake with diet. Discussed exercise of 150 minutes throughout the week. To return to clinic if noticing elevated blood pressure readings. 3. Dementia: To take medications as prescribed. Encouraged adequate sleep and exercise throughout the week. 4. Overactive bladder: Oxybutinin refilled. 5. Insomnia: Trazodone refilled. Adequate sleep hygiene encouraged. Try to get 7-10 hours of sleep nightly. Limit caffeine intake, especially in the evenings. Prior to bedtime, follow a routine that is calming. Refrain from electronics prior to bed. Refrain from TV use while laying in bed, as this may affect your body/mind associating the bed with sleep and worsen your sleep cycle. May use melatonin supplements to aid with sleep. == LABS today == Follow up yearly == I spent 37 minutes amount of time the day of this clinic visit preparing to see the patient, obtaining and/or reviewing separately obtained history, performing a medically appropriate examination and/or evaluation counseling the patient/family/caregiver, ordering medications, tests, or procedures, referring to and communicating with other health morning caregiver, documenting clinical information in the electronic or other health record, independently interpreting results, communicating results to the patient/family/caregiver, and care coordination. == PC-HIV Test/Screening: Patient has been offered HIV testing and has declined. I have explained that HIV testing is recommended for all adults, even if all risk factors are absent. /rody/ JAN ELLISON Physician Warp Splitter Signed: 06/02/2024 13:41 JAN ELLISON [facility] Jun 02, 2024 12:54 PM NURSING NOTE: LOCAL TITLE: JOSE/PREVMED STANDARD TITLE: NURSING NOTE DATE OF NOTE: JUN 02, 2024@12:54 ENTRY DATE: JUN 02, 2024@12:55:03 AUTHOR: ANA BULL COSIGNER: URGENCY: STATUS: COMPLETED TWO OR MORE PATIENT IDENTIFIERS REQUIRED FULL NAME SS NUMBER Date here for annual appt. Civilian PCP unsure of name Suicide Screen: C-SSRS Screening [place] Suicide Severity Rating Scale (C-SSRS) screener 1. Over the past month, have you [...] required due to responses to other questions. Alcohol Use Screen (AUDIT-C): Alcohol Screen: SCREEN FOR ALCOHOL (AUDIT-C) An alcohol screening test (AUDIT-C) was negative (score=0). 1. How often did you have a drink containing alcohol in the past year? Consider a drink to be a 12 ounce can or bottle of regular beer, 8 ounces of malt liquor, a 5 ounce glass of table wine, or a 1.5 ounce shot of liquor (like scotch, gin, or vodka). Never 2. How many drinks containing alcohol did you have on a typical day when you were drinking in the past year? Response not required due to responses to other questions. 3. How often did you have six or more drinks on one occasion in the past year? Response not required due to responses to other questions. Depression Screening: Perform PHQ-2 A PHQ-2 screen was performed. The score was 0 which is a negative screen for depression. Over the past two weeks, how often have you been bothered by the following problems? 1. Little interest or pleasure in doing things Not at all 2. Feeling down, depressed, or hopeless Not at all Sexual Orientation: The patient thinks of their sexual orientation as: Straight or Heterosexual RHS Screen: RHS Screen Session Format: Face to Face Environmental Check Screening was not completed at this time due to: Other: does not have a partner at this time Homelessness/Food Insecurity Screen: In the past 2 months, have you been living in stable housing that you own, rent, or stay in as part of a household? Yes - Living in stable housing. Are you worried or concerned that in the next 2 months you may NOT have stable housing that you own, rent, or stay in as part of a household? No - Not worried about housing near future The reports the following: Within the past 12 months, you worried whether your food would run out before you got money to buy more. Never true Within the past 12 months, the food you bought just didn't last and you didn't have money to get more. Never true JOSE-ADVANCE DIRECTIVES: Advance care planning is the process for identifying and communicating an individual's values and preferences regarding future health care. An advance directive is a written statement regarding preferences about future health care decisions in the event that individual becomes unable to make those decisions. Notification of Rights Related to Advance Directives: Written notification not provided. Explain: has living will ADVANCE DIRECTIVE: Do you have an Advance Directive? YES Donnellson's Advance Directive is available in the medical record. The Donnellson does not want to have the Advance Directive updated, rescinded, or reviewed. JOSE-EDUCATION ASSESSMENT: `````````````````````````` ```````````` ANNUAL EDUCATION NEEDS/BARRIER ASSESSMENT Primary healthcare language: [place]er Barriers to Learning: Physical: Hearing Impairment Comment: difficulty hearing Visual Impairment Comment: glasses Pain or Discomfort Comment: none Stress/Anxiety Comment: anxiety Cognitive: Limited Reading Ability Comment: due to vision Memory Problems Comment: forgetfulness Socioeconomic: None Preferred Learning Methods: Demonstration - Watching and the Doing `````````````````````````` ```````````` JOSE-EXERCISE SCREEN: Patient had Exercise Screening done at this encounter. Type of exercise, duration and frequency/week. Comment: weights twice week Did patient report New Balance Problem? [ YES ] Did patient report New Transfer Problem? [ NO ] Did patient report New Ambulating Problem? [ YES ] Has the patient fallen within the past 12 months? NO. Consult Orders placed: No Consult orders needed. JOSE-PT AT RISK INCAPACITATED SCREEN: 1) Does the patient meet any of the criteria for being considered incapacitated? 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 The reports no use of a wheelchair for mobility at least 75% of the time. JOSE/FRAIL ELDERLY SCREEN(CATIA): BEGIN ASSESSMENT INSTRUMENTAL ACTIVITIES OF DAILY LIVING (IADL) SCALE (Catia) Ability to use telephone: 1 point - Answers telephone but does not dial Shoppin point - Takes care of all shopping needs independently Food preparation: 1 point - Plans, prepares, and serves adequate meals independently Housekeepin point - Maintains house alone or with occasional assistance (e.g., heavy work domestic help) Laundry: 1 point - Does personal laundry completely Mode of transportation: 1 point - Travels independently on public transportation or drives own car Responsibility for own medications: 1 point - Is responsible for taking medication in correct dosages at correct time Ability to handle finances: 1 point - Manages financial matters independently (budgets, writes checks, pays rent and bills, goes to bank), collects and keeps track of income SCORING: The total score may range from 0 - 8. A lower score indicates the patient needs more assistances. Total score: 8 points Click appropriate selection below: Patient does not require assistance. (Total Score was 8) JOSE/SCHWAB INDEX (ADLS SCREEN): FUNCTIONAL: Schwab Index of [place] in Activities of Daily Living ACTIVITIES INDEPENDENCE (1 point) NO supervision, direction, or personal assistance. DEPENDENCE (0 points) WITH supervision, direction, personal assistance, OR total care. BATHING Point(s) (1 point) Baths self completely or needs help in bathing only a single a single part of the body such as the back, genital area or disabled extremity. DRESSING Point(s) (1 point) Gets clothes from closets and drawers and puts on clothes and outer garments complete with fasteners. May complete with fasteners. May have help tying shoes. TOILETING Point(s) (1 point) Goes to toilet, gets on and off, arranges clothes, cleans genital area without help.\\ TRANSFERRING Point(s) (1 point) Moves in and out of bed or chair unassisted. Mechanical transferring aides are acceptable. CONTINENCE Point(s) (1 point) Exercises complete self control over urination and defecation. FEEDING Point(s) (1 point) Gets food from plate into mouth without help Preparation of food may be done by another person. TOTAL POINTS: 6=High (patient independent) 0=Low (patient very dependent) 6 Tobacco Use Screening: The patient has never smoked cigarettes. The patient has never used other types of tobacco. Influenza Immunization: Deferral / Refusal The patient declines to receive the recommended dose of seasonal influenza vaccine. Immunization: INFLUENZA, UNSPECIFIED FORMULATION Refusal Reason: PATIENT DECISION Patient refuses all immunization(s) in the FLU group Date Documented: 06/02/24 13:14 Herpes Zoster (Shingles) Vaccine: The patient declines to receive the recommended dose of zoster (shingles) vaccine. Immunization: ZOSTER RECOMBINANT Refusal Reason: PATIENT DECISION Patient refuses all immunization(s) in the ZOSTER group Date Documented: 06/02/24 13:14 Pneumococcal Conjugate Vaccine (PCV15/PCV20): Refuses PCV vaccine Immunization: PNEUMOCOCCAL CONJUGATE, UNSPECIFIED FORMULATION Refusal Reason: PATIENT DECISION Patient refuses all immunization(s) in the PneumoPCV group Date Documented: 06/02/24 13:14 Tdap Immunization: The patient declines to receive the recommended dose of Tdap vaccine. Immunization: TDAP Refusal Reason: PATIENT DECISION Patient refuses all immunization(s) in the TDAP group Date Documented: 06/02/24 13:15 COVID-19 Immunization: Refused Moderna Monovalent COVID-19 vaccine Immunization: COVID-19 (MODERNA), MRNA, LNP-S, PF, 50 MCG/0.5 ML (AGES 12+ YEARS) Refusal Reason: PATIENT DECISION Patient refuses all immunization(s) in the COVID-19 group Date Documented: 06/02/24 13:15 Refused Pfizer Monovalent COVID-19 vaccine Immunization: COVID-19 (PFIZER), MRNA, LNP-S, PF, LONG-SUCROSE, 30 MCG/0.3 ML (AGES 12+ YEARS) Refusal Reason: PATIENT DECISION Patient refuses all immunization(s) in the COVID-19 group Date Documented: 06/02/24 13:15 Refused Novavax COVID-19 vaccine Immunization: COVID-19 (NOVAVAX), SUBUNIT, RS-NANOPARTICLE, ADJUVANTED, PF, 5 MCG/0.5 ML (AGES 12+ YEARS) Refusal Reason: PATIENT DECISION Patient refuses all immunization(s) in the COVID-19 group Date Documented: 06/02/24 13:15 Stress: In the last 6 months, identified the following causes of stress or worry: forgetfulness JOSE-BLOOD PRESSURE >140/90: BP: 146/67 (06/02/2024 12:49) Did you take your Blood Pressure Medication today? YES, Patient did take prescribed Blood Pressure Medication/s today. Have you consumed any caffeine within the last 30 minutes? NO Have you used any nicotine and/or nicotine products within the last 30 minutes? NO Blood Pressure rechecked: 124/69 /es/ ANA BULL LPN Signed: 06/02/2024 13:18 ANA BULL [facility]
--- OUTSIDE RECORDS SUMMARY | 2025-02-12 21:23 | XMS_ITS | Encounter Summary ---
Author Name [facility] [facility] [place] Address [address] [place] [address] Care Team Providers Care Mailroom Clerk Name Role Phone SUKUMARGAGAN Primary Care Provider [...] Dickens's Name Patient's Relationship to Policy Dickens [facility] ([facility]) Jul 09, 2018 [id number] SOOGIDEONV IN PATIENT [facility] ([facility] MEDICARE [facility] ([facility]) Jul 09, 2018 [id number] [phone] SOOGIDEON BurgosV IN PATIENT Selected Encounter This section includes the information on record at [place] for the Encounter. Date/Time Encounter Type Encounter Description Reason Pro vider Source Feb 12, 2025 08:50 AM Outpatient Encounter COMMUNITY CARE CONSULT IHE Encounter Template Text not used by [place] Plan of Treatment: Future Appointments (+ 6 months) and Future Tests (+/- 45 days) The Plan of Treatment section includes future care activities for the [facility] [place] [facility] This section includes future appointments and future orders which are active, pending or scheduled. Future Appointments This section includes appointments that were scheduled to occur 6 months from the date of the Encounter, up to a maximum of 20 appointments. The data comes from all [place] treatment facilities. Appointment Date/Time Appointment Type Appointme nt Facility Name Mar 24, 2025 10:00 AM AMBULATORY - MEDICINE [facility]I [facility] Mar 24, 2025 10:01 AM AMBULATORY - MEDICINE [facility] Mar 24, 2025 11:00 AM AMBULATORY - NONE [facility] Active, Pending, and Scheduled Orders This section includes a listing of several types of active, pending, and scheduled orders, including clinic medications orders, diagnostic test orders, procedure orders and consult orders; where the start date of the order is 45 days before the date of the Encounter or 45 days after the date of theEncounter. The data comes from all [facility]. Test Date/Time Test Type Test Details Facility Name Jan 13, 2025 01:17 PM Consult Order COMMUNITY CARE-UROLOGY [facility] [employer] Jan 13, 2025 03:16 PM Consult Order GERIATRIC CLINIC OUTPT [facility] [employer] Advance Directives: All historical and current Section Date Range: From patient's date of to the date document was created. This section includes ALL of a patient's completed or amended [place] Advance and Rescinded Directives. The entries below indicate that a directive exists for the patient, but an actual copy is not included with this document. The data comes from all [facility]. Date Advance Directives Provider Source Nov 03, 2022 ADVANCE DIRECTIVE DISCUSSION GIACOMO RAMIREZ [facility] Oct 30, 2022 ADVANCE DIRECTIVE ALEKSANDAR GRANADO CS Encounter Notes: All associated encounter notes This section contains the clinical notes associated to the Encounter. Date/Time Encounter Note(s) Provider Source Feb 12, 2025 08:50 AM NONVA NOTE: LOCAL TITLE: COMMUNITY CARE-CARE COORDINATION PLAN NOTE STANDARD TITLE: NONVA NOTE DATE OF NOTE: FEB 12, 2025@08:50 ENTRY DATE: FEB 12, 2025@08:50:46 AUTHOR: DANI NATION EXP COSIGNER: URGENCY: STATUS: COMPLETED COMMUNITY CARE-CARE COORDINATION PLAN NOTE Has ADDENDA Community Care Consult: UROLOGY Consult No: [id number] [facility] Referral #: [id number] Chief Complaint: Urinary tract infection, site not specified Patient Admitted? No Level of Care Coordination Moderate Care Coordination was determined from: Chart Review, Phone call to Witt/Family/Caregiver Facility Community Care Office Contact Care Coordination Point of Contact: COMMUNITY CARE RN Services: Basic Care Coordination Services Monitoring and coordination of Rehab/PT Services Direct communication to referring provider Care management, if appropriate Plan: PFP-'s Preferred Provider [facility]/[address] [address] P: [phone] F: [phone] -Ray 02-12-25 FAXED OFFLINE REFERRAL AND REFDOC TO FACILITY /rody/ DANI NATION [facility] Signed: 02/12/2025 08:52 Receipt Acknowledged By: 02/12/2025 11:36 /rody/ MARTINA NOEL RN REGISTERED NURSE 02/12/2025 ADDENDUM STATUS: COMPLETED Care Coordination Follow Up Level of Care Coordination Basic Care Coordination was determined from: Chart Review, Phone call to Witt/Family/Caregiver Services: Navigation Scheduling Post-Appointment Follow-Up E-Communications to referring provider Plan: CITC RN spoke with Mr. Martin Hurtado, son of Sky Hurtado. He denied need for care coordination. He reports his and him assist Sky Hurtado with appt management, transportation and all care needs. /rody/ MARTINA NOEL,PRESLEY REGISTERED NURSE Signed: 02/12/2025 11:48 DANI NATION [facility]
--- OUTSIDE RECORDS SUMMARY | 2025-02-12 21:23 | XMS_ITS | Encounter Summary ---
Author Name [facility] Organization [facility] [place] Address [address] [place] [address] Care Team Providers Care Staff Field Engineer Name Role Phone SUKUMARGAGAN Primary Care [...] Name Patient's Relationship to Policy Dickens [employer] [facility] (WNR) MEDICARE ADVANTAGE [facility] (WNR) Jul 09, 2018 [id number] [place] [id number] SOO,PAKO IN PATIENT [employer] [facility] (WNR) MEDICARE ADVANTAGE [facility] (WNR) Jul 09, 2018 [id number] SOO,PAKO IN PATIENT Selected Encounter This section includes the information on record at [place] for the Encounter. Date/Time Encounter Type Encounter Description Reason Provider Source Nov 05, 2024 02:02 PM Outpatient Encounter ADMIN PAT ACTIVTIES (MASNONCT) [facility] Encounter Template Text not used by [place] Plan of Treatment: Future Appointments (+ 6 [...] 16, 2024 08:00 AM AMBULATORY - NONE [facility] December 01, 2024 10:00 AM AMBULATORY NONE [facility] December 03, 2024 10:00 AM AMBULATORY [facility] December 05, 2024 11:45 AM AMBULATORY - SURGERY [facility] Mar 24, 2025 10:00 AM AMBULATORY - MEDICINE [facility] Mar 24, 2025 10:01 AM AMBULATORY - MEDICINE [facility] Mar 24, 2025 11:00 AM AMBULATORY - [facility] Lab Results: +/- 30 days of [...] Reporting Lab: [facility] [address] [facility] [address] Performing Lab: [facility] [address] [facility] [address] MAGNESIUM 1.9 mg/dL 1.6-2.6 November 11, 2024 06:48 AM [facility] RENAL PANEL PLASMA Specimen Type: PLASM A Comment: K result may show a positive bias due to hemolysis. Specimen slightly hemolyzed. Ordering Provider: CONNIE KOCH Report Released Date/Time: November 06, 2024 07:13 AM Reporting Lab: [address] [address] Performing Lab: [address] [address] CREATININE 0.89 mg/dL 0.7-1.3 UREA NITROGEN 16.9 mg/dL 9.0-25.0 GLUCOSE 99 mg/dL 72-99 SODIUM 136 meq/L 136-145 POTASSIUM 4.3 meq/L 3.5-5 CHLORIDE 104 meq/L 98-107 CARBON DIOXIDE 25 meq/L 22-31 CALCIUM 8.8 mg/dL 8.4-10.4 PHOSPHOROUS 3.6 mg/dL 2.3-4.7 ALBUMIN 3.5 g/dL 3.4-5 EGFR (CKD-EPI 2020) 86.1 >60 November 11, 2024 06:48 AM [facility] CBC BLOOD Specimen Type: BLOOD No comment entered. Ordering Provider: CONNIE KOCH Report Released Date/Time: November 06, 2024 07:13 AM Reporting Lab: [address] [address] Performing Lab: [address] [address] WBC 9.2 10*3/uL 3.6-11.2 RBC 5.85 10*6/uL [...] 20 November 10, 2024 06:[address] [facility] MAGNESIUM PLASMA Specimen Type: PLASM A Comment: No hemolysis noted. Ordering Provider: CONNIE KOCH Report Released Date/Time: November 06, 2024 07:13 AM Reporting Lab: [address] [address] Performing Lab: [address] [address] MAGNESIUM 2.1 mg/dL 1.6-2.6 November 10, 2024 06:[address] [facility] RENAL PANEL PLASMA Specimen Type: PLASM A Comment: No hemolysis noted. Ordering Provider: CONNIE KOCH Report Released Date/Time: November 06, 2024 07:13 AM Reporting Lab: [address] [address] Performing Lab: [address] [address] CREATININE 0.86 mg/dL 0.7-1.3 UREA NITROGEN 18.8 mg/dL 9.0-25.0 GLUCOSE 100 mg/dL H 72-99 SODIUM 137 meq/L 136-145 POTASSIUM 4.2 meq/L 3.5-5 CHLORIDE 104 meq/L 98-107 CARBON DIOXIDE 26 meq/L 22-31 CALCIUM 9.2 mg/dL 8.4-10.4 PHOSPHOROUS 3.6 mg/dL 2.3-4.7 ALBUMIN 3.8 g/dL 3.4-5 EGFR (CKD-EPI 2020) 87.0 >60 November 10, 2024 06:51 AM [facility] CBC BLOOD Specimen Type: BLOOD No comment entered. Ordering Provider: CONNIE KOCH Report Released Date/Time: November 06, 2024 07:13 AM Reporting Lab: [address] [address] Performing Lab: [facility] [address] [facility] [address] WBC 9.0 10*3/uL 3.6-11.2 RBC 5.85 10*6/uL [...] 20 November 09, 2024 08:[address] [facility] MAGNESIUM PLASMA Specimen Type: PLASM A Comment: No hemolysis noted. Ordering Provider: CONNIE KOCH Report Released Date/Time: November 06, 2024 07:13 AM Reporting Lab: [facility] [address] [facility] [address] Performing Lab: [facility] [address] [facility] [address] MAGNESIUM 2.1 mg/dL 1.6-2.6 November 09, 2024 08:[address] [facility] RENAL PANEL PLASMA Specimen Type: PLASM A Comment: No hemolysis noted. Ordering Provider: CONNIE KOCH Report Released Date/Time: November 06, 2024 07:13 AM Reporting Lab: [place] [address] [facility] [address] Performing Lab: [address] [address] CREATININE 0.86 mg/dL 0.7-1.3 UREA NITROGEN 18.6 mg/dL 9.0-25.0 GLUCOSE 87 mg/dL 72-99 SODIUM 138 meq/L 136-145 POTASSIUM 4.5 meq/L 3.5-5 CHLORIDE 104 meq/L 98-107 CARBON DIOXIDE 27 meq/L 22-31 CALCIUM 9.0 mg/dL 8.4-10.4 PHOSPHOROUS 3.2 mg/dL 2.3-4.7 ALBUMIN 3.5 g/dL 3.4-5 EGFR (CKD-EPI 2020) 87.0 >60 November 09, 2024 08:22 AM [facility] CBC BLOOD Specimen Type: BLOOD Comment: prev diff 11/07/24. Ordering Provider: CONNIE KOCH Report Released Date/Time: November 06, 2024 07:13 AM Reporting Lab: [address] [address] Performing Lab: [address] [address] WBC 10.7 10*3/uL 3.6-11.2 RBC 5.84 10*6/uL [...] 20 November 08, 2024 09:[address] [facility] MAGNESIUM PLASMA Specimen Type: PLASM A Comment: No hemolysis noted. Ordering Provider: CONNIE KOCH Report Released Date/Time: November 06, 2024 07:13 AM Reporting Lab: [address] [address] Performing Lab: [address] [address] MAGNESIUM 1.9 mg/dL 1.6-2.6 November 08, 2024 09:[address] [facility] RENAL PANEL PLASMA Specimen Type: PLASM A Comment: No hemolysis noted. Ordering Provider: CONNIE KOCH Report Released Date/Time: November 06, 2024 07:13 AM Reporting Lab: [address] [address] Performing Lab: [address] [address] CREATININE 0.86 mg/dL 0.7-1.3 UREA NITROGEN 17.8 mg/dL 9.0-25.0 GLUCOSE 141 mg/dL H 72-99 SODIUM 137 meq/L 136-145 POTASSIUM 4.4 meq/L 3.5-5 CHLORIDE 103 meq/L 98-107 CARBON DIOXIDE 26 meq/L 22-31 CALCIUM 8.9 mg/dL 8.4-10.4 PHOSPHOROUS 3.2 mg/dL 2.3-4.7 ALBUMIN 3.6 g/dL 3.4-5 EGFR (CKD-EPI 2020) 87.0 >60 November 08, 2024 09:04 AM [facility] CBC BLOOD Specimen Type: BLOOD No comment entered. Ordering Provider: CONNIE KOCH Report Released Date/Time: November 06, 2024 07:13 AM Reporting Lab: [address] [address] Performing Lab: [address] [address] WBC 10.1 10*3/uL 3.6-11.2 RBC 5.77 10*6/uL [...] 20 November 07, 2024 06:[address] [facility] MAGNESIUM PLASMA Specimen Type: PLASM A Comment: No hemolysis noted. Ordering Provider: CONNIE KOCH Report Released Date/Time: November 06, 2024 07:13 AM Reporting Lab: [address] [address] Performing Lab: [address] [address] MAGNESIUM 2.0 mg/dL 1.6-2.6 November 07, 2024 06:[address] [facility] RENAL PANEL PLASMA Specimen Type: PLASM A Comment: No hemolysis noted. Ordering Provider: CONNIE KOCH Report Released Date/Time: November 06, 2024 07:13 AM Reporting Lab: [address] [address] Performing Lab: [address] [address] CREATININE 1.00 mg/dL 0.7-1.3 UREA NITROGEN 19.3 mg/dL 9.0-25.0 GLUCOSE 123 mg/dL H 72-99 SODIUM 138 meq/L 136-145 POTASSIUM 4.7 meq/L 3.5-5 CHLORIDE 102 meq/L 98-107 CARBON DIOXIDE 27 meq/L 22-31 CALCIUM 8.9 mg/dL 8.4-10.4 PHOSPHOROUS 4.1 mg/dL 2.3-4.7 ALBUMIN 3.8 g/dL 3.4-5 EGFR (CKD-EPI 2020) 75.6 >60 November 07, 2024 06:52 AM [facility] CBC BLOOD Specimen Type: BLOOD No comment entered. Ordering Provider: CONNIE KOCH Report Released Date/Time: November 06, 2024 07:13 AM Reporting Lab: [facility] [address] [facility] [address] Performing Lab: [place] [id number] [facility] [address] WBC 12.6 10*3/uL H 3.6-11.2 RBC 5.50 [...] H 2.10-8.00 November 07, 2024 06:35 AM [facility] DIGOXIN PLASMA Specimen Type: PLASM A No comment entered. Ordering Provider: CONNIE KOCH Report Released Date/Time: November 07, 2024 08:41 AM Reporting Lab: [address] [address] Performing Lab: [address] [address] DIGOXIN <0.15 ng/mL L 0.8-2 November 06, 2024 07:[address] [facility] MAGNESIUM PLASMA Specimen Type: PLASM A Comment: No hemolysis noted. Ordering Provider: MICH RAMIREZ Report Released Date/Time: Nov 05, 2024 11:04 PM Reporting Lab: [address] [address] Performing Lab: [address] [address] MAGNESIUM 1.9 mg/dL 1.6-2.6 November 06, 2024 07:[address] [facility] RENAL PANEL PLASMA Specimen Type: PLASM A Comment: No hemolysis noted. Ordering Provider: MICH RAMIREZ Report Released Date/Time: Nov 05, 2024 11:04 PM Reporting Lab: [address] [address] Performing Lab: [address] [address] CREATININE 0.88 mg/dL 0.7-1.3 UREA NITROGEN 18.0 mg/dL 9.0-25.0 GLUCOSE 101 mg/dL H 72-99 SODIUM 136 meq/L 136-145 POTASSIUM 4.1 meq/L 3.5-5 CHLORIDE 99 meq/L 98-107 CARBON DIOXIDE 30 meq/L 22-31 CALCIUM 8.8 mg/dL 8.4-10.4 PHOSPHOROUS 4.1 mg/dL 2.3-4.7 ALBUMIN 3.1 g/dL L 3.4-5 EGFR (CKD-EPI 2020) 86.4 >60 November 06, 2024 07:[address] [facility] CBC BLOOD Specimen Type: BLOOD No comment entered. Ordering Provider: MICH RAMIREZ Report Released Date/Time: Nov 05, 2024 11:04 PM Reporting Lab: [address] [address] Performing Lab: [address] [address] WBC 10.3 10*3/uL 3.6-11.2 RBC 5.27 10*6/uL [...] 20 November 06, 2024 03:[address] [facility] MRSA SURVL NARES DNA NARES Specimen [...] Nov 05, 2024 06:43 PM Reporting Lab: [address] [address] Performing Lab: [facility] [address] [facility] [address] MRSA SURVL NARES DNA Negative Negative Nov 05, 2024 08:[address] [facility] MAGNESIUM PLASMA Specimen Type: PLASM A Comment: No hemolysis noted. Ordering Provider: IRON TAFOYA Report Released Date/Time: Nov 05, 2024 06:43 PM Reporting Lab: [place] [phone] Performing Lab: [place] [phone] MAGNESIUM 1.9 mg/dL 1.6-2.6 Nov 05, 2024 08:[address] [facility] PHOSPHOROUS PLASMA Specimen Type: PLASM A Comment: No hemolysis noted. Ordering Provider: IRON TAFOYA Report Released Date/Time: Nov 05, 2024 06:43 PM Reporting Lab: [place] [phone] Performing Lab: [place] [phone] PHOSPHOROUS 3.7 mg/dL 2.3-4.7 Nov 05, 2024 08:34 PM [facility] CBC BLOOD Specimen Type: BLOOD No comment entered. Ordering Provider: IRON TAFOYA Report Released Date/Time: Nov 05, 2024 06:43 PM Reporting Lab: [address] [address] Performing Lab: [address] [address] WBC 11.1 10*3/uL 3.6-11.2 RBC 5.73 10*6/uL [...] 0.00-0. 20 Nov 05, 2024 08:[address] [facility] COMPREHENSIVE METABOLIC PANEL PLASMA Specimen Type: PLASMA Comment: No hemolysis noted. Ordering Provider: IRON TAFOYA Report Released Date/Time: Nov 05, 2024 06:43 PM Reporting Lab: [address] [address] Performing Lab: [address] [address] CREATININE 1.02 mg/dL 0.7-1.3 UREA NITROGEN 19.8 [...] Pain Height Weight Body Mass Index Source Nov 05, 2024 10:30 PM 0 [facility] Nov 05, 2024 07:37 PM 98.3 89 101/66 18 96 218.1 31 [facility] Social History: [...] 03, 2022 ADVANCE DIRECTIVE DISCUSSION GIACOMO RAMIREZ [facility] Oct 30, 2022 ADVANCE DIRECTIVE ALEKSANDAR GRANADO Encounter Notes: All associated encounter notes This section contains the clinical notes associated to the Encounter. Date/Time Encounter Note(s) Provider Source Nov 05, 2024 02:02 PM ADMINISTRATIVE NOT E: LOCAL TITLE: BENEFICIARY TRAVEL (BT) STANDARD TITLE: ADMINISTRATIVE NOTE DATE OF NOTE: NOV 05, 2024@14:02 ENTRY DATE: NOV 05, 2024@14:03:01 AUTHOR: [facility] EXP COSIGNER: URGENCY: STATUS: COMPLETED BENEFICIARY TRAVEL SPECIAL MODE TRANSPORTATION: I have informed the [place] that, requests with insufficient evidence of functional need, containing information that appears inconsistent with clinical evidence or appears intentionally exaggerated to obtain eligibility will be referred for further review or returned for additional information or clarification. Point of Contact's E-mail: Phone/Pager/Extension: [phone] MEDICAL JUSTIFICATION [place] is not able to transfer into a private vehicle or medically appropriate common carrier, or requires additional assistance as outlined below. The clinical condition requiring the use of [place] Special Mode transportation to be safely transported are as follows: Severe deconditioning or functional limitation precluding private transportation with assistance Dementia/Confusion precluding private vehicle with assistance This request is not for an inter-facility transfer BASIC LIFE SUPPORT (Stretcher; Lead Neurodiagnostic Technologist On-Board): Stretcher: Patient is bed-bound and unable to safely travel by POV or common carrier, or is unable to maintain static sitting position for the duration of the trip. Describe functional limitations in detail clarifying why patient requires stretcher transport. 40% SC Patient weight: 183.2 lb [83.10 kg] (10/18/2022 00:24) Comments: Date travel is to commence: Oct senior drupal developer time (if needed): 4 pm Estimated time frame [place] will require transportation: One Time From: Other Location: Comment: [facility], [facility] [address], [place] [address], Rm: [phone] To: (Facility Name): [facility]: [address] [place] [address]/State: [place], [place] Frequency: One Way /rody/ Allyson East MSN, RN Bed Chucking Machine Operator Signed: 11/05/2024 14:09 [facility]
--- OUTSIDE RECORDS SUMMARY | 2025-02-12 21:23 | XMS_ITS | Continuity of Care Document ---
Author Name [facility] Organization [facility] Care Team Providers Care Cashier Receptionist Name Role Phone [facility] Unavailable Unavailable Problems Combined list of problems from Department of Defense and [facility] Affairs facilities. It does not include entries that were removed or entered in error. 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 Benign essential hypertension Active Condition [facility] Benign prostatic hyperplasia without outflow obstruction Active Condition [facility] COVID-19 Active Condition [facility] Dementia with behavioral disturbance Active Condition [facility] Hearing loss Active Condition [facility] History of arthroplasty of left knee Active Condition [facility] Hypertonic bladder Active Condition 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 Pain of left shoulder joint Active Condition [facility] Diagnosis: ICD-10-CM R41.9 Unsp symptoms and signs w cognitive functions and awareness Active Diagnosis [facility] Diagnosis: ICD-10-CM N40.1 Benign prostatic hyperplasia with lower urinary tract symp Active Diagnosis [facility] Diagnosis: ICD-10-CM Z74.3 Need for continuous supervision Active Diagnosis [facility] Diagnosis: ICD-10-CM Z65.9 Problem related to unspecified psychosocial circumstances Active Diagnosis [facility] Diagnosis: ICD-10-CM Z65.8 Oth problems related to psychosocial circumstances Active Diagnosis [facility] Diagnosis: ICD-10-CM Z02.89 Encounter for other administrative examinations Active Diagnosis [facility] Diagnosis: ICD-10-CM Z09 Encntr for f/u exam aft trtmt for cond oth than danish neoplm Active Diagnosis [facility] Diagnosis: ICD-10-CM Z51.81 Encounter for therapeutic drug level monitoring Active Diagnosis [facility] Diagnosis: ICD-10-CM I48.91 Unspecified atrial fibrillation Active Diagnosis [facility] Diagnosis: ICD-10-CM Z74.1 Need for assistance with personal care Active Diagnosis [facility] Diagnosis: ICD-10-CM Z71.81 Spiritual or temple counseling Active Diagnosis [facility] Diagnosis: ICD-10-CM F03.90 Unsp dementia, unsp severity, without beh/psych/mood/anx Active Diagnosis [facility] Admit Reason: AMS Active Diagnosis [facility] Diagnosis: ICD-10-CM Z75.1 Person awaiting admission to adequate facility elsewhere Active Diagnosis [facility] Diagnosis: ICD-10-CM Z63.8 Other specified problems related to primary support group Active Diagnosis [facility] Diagnosis: ICD-10-CM Z75.9 Unsp problem related to [facility] facilities and oth health care Active Diagnosis [facility] Diagnosis: ICD-10-CM Z00.01 Encounter for general adult medical exam w abnormal findings Active Diagnosis [facility] Medications Combined list of outpatient medications from Department of Defense and Veterans Affairs facilities.Medications provided include 1) outpatient medications from the last 15 months, and 2) patient-reported medications. Medication Details Route Status Patient Instructions Prescription Expires Prescription Number Last Dispense Date Ordering Provider Order Date Order Qty Source APIXABAN 5MG TAB TAKE ONE TABLET BY MOUTH TWICE A DAY FOR ANTICOAG ULATION ORAL ACTIVE 11/13/2025 [id number] AHMAD,DURAN AIRA 2024 60 [facility] ASPIRIN 81MG TAB,EC TAKE ONE TABLET BY MOUTH EVERY DAY ORAL 05/30/2024 [id number] 4 WHITE,GOR DON 2022 120 [facility] AZELASTINE HCL 137MCG/SPRA Y INHL,NASAL, 30ML SPRAY 1 PUFF IN EACH NOSTRIL TWICE A DAY NASAL ACTIVE 06/03/2025 [id number] 4 TERRA,CRYST AL L 2023 1 [facility] AZELASTINE HCL 137MCG/SPRA Y INHL,NASAL, 30ML SPRAY 1 PUFF IN EACH NOSTRIL TWICE A DAY NASAL DISCONT INUED 05/30/2024 [id number] LAWRENCE CORBIN 2022 1 [facility] DIAZEPAM 5MG TAB TAKE ONE TABLET BY MOUTH TWO TIMES A DAY NEEDED ORAL ACTIVE LAWRENCE CORBIN 2020 [facility] DICLOFENAC NA 1% GEL,TOP APPLY 4 GRAMS TOPICALL Y FOUR TIMES A DAY -DON'T EXCEED 16 GRAMS DAILY TO ANY AFFECTED LEG AREA. DON'T EXCEED 8 GRAMS DAILY TO ANY AFFECTED ARM AREA. DON'T EXCEED A TOTAL DOSE OF 32 GRAMS DAILY OVER ALL AREAS. *USE DOSING CARD TO MEASURE DOSE.* TOPICA L 05/30/2024 [id number] 4 LAWRENCE CORBIN 2022 100 [facility] DONEPEZIL HCL 10MG TAB TAKE ONE-HALF TABLET BY MOUTH AT BEDTIME FOR ALZHEIME R DISEASE (JUST BEFORE BEDTIME) ORAL ACTIVE 11/13/2025 [id number] SCOUTDURANDimitris TERAN 2024 45 [facility] DONEPEZIL HCL 10MG TAB TAKE ONE TABLET BY MOUTH AT BEDTIME ORAL ACTIVE 05/07/2025 [id number] 4 TERRA,CRYST AL L 2023 30 [facility] DONEPEZIL HCL 10MG TAB TAKE ONE TABLET BY MOUTH AT BEDTIME ORAL DISCONT INUED 05/30/2024 [id number] LAWRENCE CORBIN 2022 30 [facility] LOSARTAN 25MG TAB TAKE ONE TABLET BY MOUTH EVERY EVENING ORAL ACTIVE 05/07/2025 [id number] TERRA,CRYST AL L 2023 30 [facility] LOSARTAN 25MG TAB TAKE ONE TABLET BY MOUTH EVERY EVENING ORAL DISCONT INUED 05/30/2024 [id number] 4 WHITE,GOR DON 2022 30 [facility] MELATONIN 1MG CAP/TAB TAKE ONE CAP/TAB BY MOUTH AT BEDTIME NEEDED FOR SLEEP ORAL 02/10/2025 [id number] 5 ALAYNA BUTTERFIELDH AIRA 2024 90 [facility] MEMANTINE HCL 5MG TAB TAKE ONE TABLET BY MOUTH ONCE A DAY FOR ALZHEIME R DISEASE ORAL 02/10/2025 [id number] 5 AHMADALAYNAH AIRA 2024 90 [facility] METOPROLOL SUCCINATE 200MG TAB,SA TAKE ONE-HALF TABLET BY MOUTH TWICE A DAY FOR HEART FAILURE SWALLOW WHOLE, DO NOT CRUSH OR CHEW (TABLETS MAY BE CUT IN HALF). ORAL ACTIVE 11/13/2025 [id number] 5 ALAYNA BUTTERFIELDH AIRA 2024 90 [facility] METOPROLOL TARTRATE 50MG TAB TAKE ONE TABLET BY MOUTH TWICE A DAY WITH MEALS FOR BLOOD PRESSURE ORAL HOLD 06/03/2025 [id number] TERRA,CRYST AL L 2024 180 [facility] METOPROLOL TARTRATE 50MG TAB TAKE ONE TABLET BY MOUTH TWICE A DAY WITH MEALS FOR BLOOD PRESSURE ORAL DISCONT INUED 06/03/2025 [id number] TERRA,CRYST AL L 2023 60 [facility] METOPROLOL TARTRATE 50MG TAB TAKE ONE TABLET BY MOUTH TWICE A DAY WITH MEALS FOR BLOOD PRESSURE ORAL DISCONT INUED 05/30/2024 [id number] 4 WHITE,GOR DON 2022 60 [facility] MUPIROCIN 2% OINT,TOP APPLY SMALL AMOUNT TOPICALL Y TWICE A DAY FOR SKIN CONDITIO N TOPICA L DISCONT INUED 09/24/2024 [id number] 4 WHITE,GOR DON 2023 22 [facility] MUPIROCIN 2% OINT,TOP APPLY SMALL AMOUNT TOPICALL Y TWICE A DAY FOR SKIN CONDITIO N TOPICA L 02/04/2025 [id number] 4 TERRA,CRYST AL L 2023 22 [facility] OXYBUTYNIN CL 10MG TAB,SA TAKE ONE TABLET BY MOUTH EVERY DAY FOR OVERACTI VE BLADDER ORAL ACTIVE 06/03/2025 [id number] 4 TERRA,CRYST AL L 2023 90 [facility] OXYBUTYNIN CL 10MG TAB,SA TAKE ONE TABLET BY MOUTH EVERY DAY FOR OVERACTI VE BLADDER ORAL DISCONT INUED 05/30/2024 [id number] 4 WHITE,GOR DON 2022 90 [facility] QUETIAPINE FUMARATE 100MG TAB TAKE ONE-HALF TABLET BY MOUTH TWICE A DAY FOR AGITATIO N ORAL ACTIVE 11/13/2025 [id number] 5 [facility] 2024 30 [facility] SACUBITRIL 24MG/VALSAR GALLARDO 26MG TAB TAKE 1 TABLET BY MOUTH TWICE A DAY FOR HEART FAILURE ORAL ACTIVE 11/13/2025 [id number] 5 AHKENDELLDURAN AIRA 2024 180 [facility] SENNOSIDES 8.6MG TAB TAKE TWO TABLETS BY MOUTH ONCE A DAY FOR CONSTIPA TION ORAL 12/12/2024 [id number] 5 [facility] 2024 60 [facility] TAMSULOSIN HCL 0.4MG CAP TAKE ONE CAPSULE BY MOUTH EVERY EVENING FOR BENIGN PROSTATI C HYPERPLA WHITNEY APPROXIM ATELY 30 MINUTES AFTER THE SAME MEAL EACH DAY ORAL ACTIVE 11/13/2025 [id number] 5 SCOUTDURAN AIRA 2024 90 [facility] TRAZODONE HCL 50MG TAB TAKE ONE TABLET BY MOUTH AT BEDTIME ORAL ACTIVE 06/03/2025 [id number] 4 TERRA,CRYST AL L 2023 30 [facility] TRAZODONE HCL 50MG TAB TAKE ONE TABLET BY MOUTH AT BEDTIME ORAL DISCONT INUED 09/24/2024 [id number] 4 LAWRENCE CORBIN 2023 30 [facility] Allergies, Adverse Reactions, Alerts Combined list of allergies from [facility] and [facility] facilities. It does not include entries that were removed or entered in error. Substance Category Reaction Severity Reaction type Status Date Reported Comments Source ANTIHISTAMIN E NASAL DECONGEST Propensity to adverse reactions to drug (finding) Low blood pressure active 3 [facility] DARVOCET-N Propensity to adverse reactions to drug (finding) active 3 [facility] PENICILLIN Propensity to adverse reactions to drug (finding) Eruption active 3 [facility] SUDAFED Propensity to adverse reactions to drug (finding) Eruption active 1 [facility] SUDAFED Propensity to adverse reactions to drug (finding) Retention of urine active 3 [facility] Immunizations Combined list of available immunizations from the [facility] and [facility] facilities. Immunization Series Date Given Administered By Site Reaction Lot Number CVX Code Drug Communication Studies Professor Status Comments Source INFLUENZA VACCINE, QUADRIVALENT, ADJUVANTED 2022 [place] [id number] 205 complet ed Completed Series, ADMINISTE RED AT [place], [facility] COVID-19 (PFIZER), MRNA, LNP-S, PF, 30 MCG/0.3 ML DOSE 2 2020 208 complet ed [facility] COVID-19 (PFIZER), MRNA, LNP-S, PF, 30 MCG/0.3 ML DOSE 1 2020 208 complet ed [facility] Results Combined list of recent chemistry, hematology and other laboratory results from Department of Defense and Veterans Affairs, ranging from 15 months to all on record, depending upon the facility. Order Name Results Value Reference Range Date Interpretation Specimen Comments Source MAGNESIUM MAGNESIUM [MASS/VOLUM E] IN SERUM OR PLASMA 1.9 mg/dL 1.6 - 2.6 11/11 Specimen Type: PLASMA Comment: K result may show a positive bias due to hemolysis. Specimen slightly hemolyzed. Ordering Provider: FRANCO KOCH Report Released Date/Time: November 06, 2024 07:13 AM Reporting Lab: [facility] [address] [facility] [address] Performing Lab: [facility] [address] [facility] [address] [facility] RENAL PANEL CREATININE [MASS/VOLUM E] IN SERUM OR PLASMA 0.89 mg/dL 0.7 - 1.3 11/11 Specimen Type: PLASMA Comment: K result may show a positive bias due to hemolysis. Specimen slightly hemolyzed. Ordering Provider: FRANCO KOCH Report Released Date/Time: November 06, 2024 07:13 AM Reporting Lab: [place] [address] [facility] [address] Performing Lab: [place] [address] [facility] [phone] [place] [address] RENAL PANEL UREA NITROGEN [MASS/VOLUM E] IN SERUM OR PLASMA 16.9 mg/dL 9.0 - 25.0 11/11 Specimen Type: PLASMA Comment: K result may show a positive bias due to hemolysis. Specimen slightly hemolyzed. Ordering Provider: FRANCO KOCH Report Released Date/Time: November 06, 2024 07:13 AM Reporting Lab: [place] [address] [facility] [address] Performing Lab: [facility] [address] [facility] [address] [facility] RENAL PANEL GLUCOSE [MASS/VOLUM E] IN SERUM OR PLASMA 99 mg/dL 72 - 99 11/11 Specimen Type: PLASMA Comment: K result may show a positive bias due to hemolysis. Specimen slightly hemolyzed. Ordering Provider: FRANCO KOCH Report Released Date/Time: November 06, 2024 07:13 AM Reporting Lab: [place] [address] [place] [phone] Performing Lab: [place] [address] [facility] [address] [facility] RENAL PANEL SODIUM [MOLES/VOLU ME] IN SERUM OR PLASMA 136 meq/L 136 - 145 11/11 Specimen Type: PLASMA Comment: K result may show a positive bias due to hemolysis. Specimen slightly hemolyzed. Ordering Provider: FRANCO KOCH Report Released Date/Time: November 06, 2024 07:13 AM Reporting Lab: [facility] [address] [facility] [address] Performing Lab: [place] [address] [facility] [phone] [place] [address] RENAL PANEL POTASSIUM [MOLES/VOLU ME] IN SERUM OR PLASMA 4.3 meq/L 3.5 - 5 11/11 Specimen Type: PLASMA Comment: K result may show a positive bias due to hemolysis. Specimen slightly hemolyzed. Ordering Provider: FRANCO KOCH Report Released Date/Time: November 06, 2024 07:13 AM Reporting Lab: [facility] [address] [facility] [address] Performing Lab: [facility] [address] [facility] [address] [facility] RENAL PANEL CHLORIDE [MOLES/VOLU ME] IN SERUM OR PLASMA 104 meq/L 98 - 107 11/11 Specimen Type: PLASMA Comment: K result may show a positive bias due to hemolysis. Specimen slightly hemolyzed. Ordering Provider: FRANCO KOCH Report Released Date/Time: November 06, 2024 07:13 AM Reporting Lab: [facility] [address] [facility] [address] Performing Lab: [facility] [address] [facility] [address] [facility] RENAL PANEL CARBON DIOXIDE, TOTAL [MOLES/VOLU ME] IN SERUM OR PLASMA 25 meq/L 22 - 31 11/11 Specimen Type: PLASMA Comment: K result may show a positive bias due to hemolysis. Specimen slightly hemolyzed. Ordering Provider: FRANCO KOCH Report Released Date/Time: November 06, 2024 07:13 AM Reporting Lab: [facility] [address] [facility] [address] Performing Lab: [facility] [address] [facility] [address] [facility] RENAL PANEL CALCIUM [MASS/VOLUM E] IN SERUM OR PLASMA 8.8 mg/dL 8.4 - 10.4 11/11 Specimen Type: PLASMA Comment: K result may show a positive bias due to hemolysis. Specimen slightly hemolyzed. Ordering Provider: FRANCO KOCH Report Released Date/Time: November 06, 2024 07:13 AM Reporting Lab: [facility] [address] [facility] [address] Performing Lab: [facility] [address] [facility] [address] [facility] RENAL PANEL PHOSPHATE [MASS/VOLUM E] IN SERUM OR PLASMA 3.6 mg/dL 2.3 - 4.7 11/11 Specimen Type: PLASMA Comment: K result may show a positive bias due to hemolysis. Specimen slightly hemolyzed. Ordering Provider: FRANCO KOCH Report Released Date/Time: November 06, 2024 07:13 AM Reporting Lab: [facility] [address] [facility] [address] Performing Lab: [facility] [address] [facility] [address] [facility] RENAL PANEL ALBUMIN [MASS/VOLUM E] IN SERUM OR PLASMA 3.5 g/dL 3.4 - 5 11/11 Specimen Type: PLASMA Comment: K result may show a positive bias due to hemolysis. Specimen slightly hemolyzed. Ordering Provider: FRANCO KOCH Report Released Date/Time: November 06, 2024 07:13 AM Reporting Lab: [facility] [address] [facility] [address] Performing Lab: [facility] [address] [place] [address] [facility] RENAL PANEL GLOMERULAR FILTRATION RATE/1.73 SQ M.PREDICTED [VOLUME RATE/AREA] IN SERUM, PLASMA OR BLOOD BY CREATININE- BASED FORMULA (CKD-EPI 2020) 86.1 60 11/11 Specimen Type: PLASMA Comment: K result may show a positive bias due to hemolysis. Specimen slightly hemolyzed. Ordering Provider: FRANCO KOCH Report Released Date/Time: November 06, 2024 07:13 AM Reporting Lab: [place] [address] [place] [address] Performing Lab: [address] CBC LEUKOCYTES [#/VOLUME] IN BLOOD BY AUTOMATED COUNT 9.2 10*3/u L 3.6 - 11.2 11/11 Specimen Type: BLOOD No comment entered. Ordering Provider: FRANCO KOCH Report Released Date/Time: November 06, 2024 07:13 AM Reporting Lab: [place] [address] [facility] [address] Performing Lab: [place] [phone] CBC ERYTHROCYTE S [#/VOLUME] IN BLOOD BY AUTOMATED COUNT 5.85 10*6/u L 4.10 - 5.70 11/11 H Specimen Type: BLOOD No comment entered. Ordering Provider: FRANCO KOCH Report Released Date/Time: November 06, 2024 07:13 AM Reporting Lab: [place] [address] [facility] [address] Performing Lab: [address] CBC HEMOGLOBIN [MASS/VOLUM E] IN BLOOD 16.7 g/dL 13.1 - 16.8 11/11 Specimen Type: BLOOD No comment entered. Ordering Provider: FRANCO KOCH Report Released Date/Time: November 06, 2024 07:13 AM Reporting Lab: [place] [address] [facility] [address] Performing Lab: [address] [address] [facility] CBC HEMATOCRIT [VOLUME FRACTION] OF BLOOD 50.4 38.2 - 48.4 11/11 H Specimen Type: BLOOD No comment entered. Ordering Provider: FRANCO KOCH Report Released Date/Time: November 06, 2024 07:13 AM Reporting Lab: [place] [address] [facility] [address] Performing Lab: [address] [phone] CBC MCV [ENTITIC VOLUME] BY AUTOMATED COUNT 86.2 fL 80.0 - 100.0 11/11 Specimen Type: BLOOD No comment entered. Ordering Provider: FRANCO KOCH Report Released Date/Time: November 06, 2024 07:13 AM Reporting Lab: [place] [address] [facility] [address] Performing Lab: [address] [phone] [place] [address] CBC MCH [ENTITIC MASS] BY AUTOMATED COUNT 28.5 pg 27.0 - 34.0 11/11 Specimen Type: BLOOD No comment entered. Ordering Provider: FRANCO KOCH Report Released Date/Time: November 06, 2024 07:13 AM Reporting Lab: [place] [address] [facility] [address] Performing Lab: [address] [address] [facility] CBC MCHC [MASS/VOLUM E] BY AUTOMATED COUNT 33.1 g/dL 33.0 - 36.0 11/11 Specimen Type: BLOOD No comment entered. Ordering Provider: FRANCO KOCH Report Released Date/Time: November 06, 2024 07:13 AM Reporting Lab: [facility] [address] [facility] [address] Performing Lab: [facility] [address] [place] [address] [facility] CBC PLATELETS [#/VOLUME] IN BLOOD BY AUTOMATED COUNT 236 10*3/u L 150 - 400 11/11 Specimen Type: BLOOD No comment entered. Ordering Provider: FRANCO KOCH Report Released Date/Time: November 06, 2024 07:13 AM Reporting Lab: [place] [address] [facility] [address] Performing Lab: [address] [address] [facility] CBC PLATELET MEAN VOLUME [ENTITIC VOLUME] IN BLOOD BY AUTOMATED COUNT 10.8 fL 7.5 - 11.2 11/11 Specimen Type: BLOOD No comment entered. Ordering Provider: FRANCO KOCH Report Released Date/Time: November 06, 2024 07:13 AM Reporting Lab: [place] [address] [facility] [address] Performing Lab: [address] [address] [facility] CBC ERYTHROCYTE DISTRIBUTIO N WIDTH [RATIO] BY AUTOMATED COUNT 15.4 11.8 - 15.1 11/11 H Specimen Type: BLOOD No comment entered. Ordering Provider: FRANCO KOCH Report Released Date/Time: November 06, 2024 07:13 AM Reporting Lab: [place] [address] [facility] [address] Performing Lab: [address] [address] [facility] CBC LYMPHOCYTES /100 LEUKOCYTES IN BLOOD BY AUTOMATED COUNT 17 11/11 Specimen Type: BLOOD No comment entered. Ordering Provider: FRANCO KOCH Report Released Date/Time: November 06, 2024 07:13 AM Reporting Lab: [place] [address] [address] [facility] [address] Performing Lab: [facility] [address] [facility] [address] [facility] CBC MONOCYTES/1 00 LEUKOCYTES IN BLOOD BY AUTOMATED COUNT 10 11/11 Specimen Type: BLOOD No comment entered. Ordering Provider: FRANCO KOCH Report Released Date/Time: November 06, 2024 07:13 AM Reporting Lab: [facility] [address] [facility] [address] Performing Lab: [facility] [address] [facility] [address] [facility] CBC NEUTROPHILS /100 LEUKOCYTES IN BLOOD BY AUTOMATED COUNT 65 11/11 Specimen Type: BLOOD No comment entered. Ordering Provider: FRANCO KOCH Report Released Date/Time: November 06, 2024 07:13 AM Reporting Lab: [facility] [address] [facility] [address] Performing Lab: [facility] [address] [facility] [address] [facility] CBC EOSINOPHILS /100 LEUKOCYTES IN BLOOD BY AUTOMATED COUNT 7 11/11 Specimen Type: BLOOD No comment entered. Ordering Provider: FRANCO KOCH Report Released Date/Time: November 06, 2024 07:13 AM Reporting Lab: [facility] [address] [facility] [address] Performing Lab: [facility] [address] [facility] [address] [facility] CBC BASOPHILS/1 00 LEUKOCYTES IN BLOOD BY AUTOMATED COUNT 1 11/11 Specimen Type: BLOOD No comment entered. Ordering Provider: FRANCO KOCH Report Released Date/Time: November 06, 2024 07:13 AM Reporting Lab: [facility] [address] [facility] [address] Performing Lab: [facility] [address] [facility] [address] [facility] CBC LYMPHOCYTES [#/VOLUME] IN BLOOD BY AUTOMATED COUNT 1.56 10*3/u L 0.77 - 4.50 11/11 Specimen Type: BLOOD No comment entered. Ordering Provider: FRANCO KOCH Report Released Date/Time: November 06, 2024 07:13 AM Reporting Lab: [place] [address] [place] [phone] Performing Lab: [place] [phone] CBC MONOCYTES [#/VOLUME] IN BLOOD BY AUTOMATED COUNT 0.88 10*3/u L 0.19 - 0.80 11/11 H Specimen Type: BLOOD No comment entered. Ordering Provider: FRANCO KOCH Report Released Date/Time: November 06, 2024 07:13 AM Reporting Lab: [place] [address] Performing Lab: [place] [phone] CBC NEUTROPHILS [#/VOLUME] IN BLOOD BY AUTOMATED COUNT 6.03 10*3/u L 2.10 - 8.00 11/11 Specimen Type: BLOOD No comment entered. Ordering Provider: FRANCO KOCH Report Released Date/Time: November 06, 2024 07:13 AM Reporting Lab: [place] [phone] Performing Lab: [place] [phone] CBC EOSINOPHILS [#/VOLUME] IN BLOOD BY AUTOMATED COUNT 0.63 10*3/u L 0.00 - 0.60 11/11 H Specimen Type: BLOOD No comment entered. Ordering Provider: FRANCO KOCH Report Released Date/Time: November 06, 2024 07:13 AM Reporting Lab: [place] [phone] Performing Lab: [address] [place] [address] [facility] CBC BASOPHILS [#/VOLUME] IN BLOOD BY AUTOMATED COUNT 0.09 10*3/u L 0.00 - 0.20 11/11 Specimen Type: BLOOD No comment entered. Ordering Provider: FRANCO KOCH Report Released Date/Time: November 06, 2024 07:13 AM Reporting Lab: [place] [address] [place] [phone] Performing Lab: [place] [address] [facility] [address] [facility] MAGNESIUM MAGNESIUM [MASS/VOLUM E] IN SERUM OR PLASMA 2.1 mg/dL 1.6 - 2.6 11/10 Specimen Type: PLASMA Comment: No hemolysis noted. Ordering Provider: FRANCO KOCH Report Released Date/Time: November 06, 2024 07:13 AM Reporting Lab: [place] [address] [facility] [address] Performing Lab: [place] [address] [facility] [address] [facility] RENAL PANEL CREATININE [MASS/VOLUM E] IN SERUM OR PLASMA 0.86 mg/dL 0.7 - 1.3 11/10 Specimen Type: PLASMA Comment: No hemolysis noted. Ordering Provider: FRANCO KOCH Report Released Date/Time: November 06, 2024 07:13 AM Reporting Lab: [place] [address] [facility] [address] Performing Lab: [place] [address] [facility] [address] [facility] RENAL PANEL UREA NITROGEN [MASS/VOLUM E] IN SERUM OR PLASMA 18.8 mg/dL 9.0 - 25.0 11/10 Specimen Type: PLASMA Comment: No hemolysis noted. Ordering Provider: FRANCO KOCH Report Released Date/Time: November 06, 2024 07:13 AM Reporting Lab: [place] [address] [place] [address] Performing Lab: [facility] [address] [facility] [address] [facility] RENAL PANEL GLUCOSE [MASS/VOLUM E] IN SERUM OR PLASMA 100 mg/dL 72 - 99 11/10 H Specimen Type: PLASMA Comment: No hemolysis noted. Ordering Provider: FRANCO KOCH Report Released Date/Time: November 06, 2024 07:13 AM Reporting Lab: [place] [address] [address] [facility] [address] Performing Lab: [place] [address] [facility] [address] [facility] RENAL PANEL SODIUM [MOLES/VOLU ME] IN SERUM OR PLASMA 137 meq/L 136 - 145 11/10 Specimen Type: PLASMA Comment: No hemolysis noted. Ordering Provider: FRANCO KOCH Report Released Date/Time: November 06, 2024 07:13 AM Reporting Lab: [place] [address] [facility] [address] Performing Lab: [place] [address] [facility] [address] [facility] RENAL PANEL POTASSIUM [MOLES/VOLU ME] IN SERUM OR PLASMA 4.2 meq/L 3.5 - 5 11/10 Specimen Type: PLASMA Comment: No hemolysis noted. Ordering Provider: FRANCO KOCH Report Released Date/Time: November 06, 2024 07:13 AM Reporting Lab: [facility] [address] [facility] [address] Performing Lab: [place] [address] [facility] [address] [facility] RENAL PANEL CHLORIDE [MOLES/VOLU ME] IN SERUM OR PLASMA 104 meq/L 98 - 107 11/10 Specimen Type: PLASMA Comment: No hemolysis noted. Ordering Provider: FRANCO KOCH Report Released Date/Time: November 06, 2024 07:13 AM Reporting Lab: [address] [place] [address] Performing Lab: [facility] [address] [facility] [address] [facility] RENAL PANEL CARBON DIOXIDE, TOTAL [MOLES/VOLU ME] IN SERUM OR PLASMA 26 meq/L 22 - 31 11/10 Specimen Type: PLASMA Comment: No hemolysis noted. Ordering Provider: FRANCO KOCH Report Released Date/Time: November 06, 2024 07:13 AM Reporting Lab: [place] [address] [facility] [address] Performing Lab: [address] [address] [facility] RENAL PANEL CALCIUM [MASS/VOLUM E] IN SERUM OR PLASMA 9.2 mg/dL 8.4 - 10.4 11/10 Specimen Type: PLASMA Comment: No hemolysis noted. Ordering Provider: FRANCO KOCH Report Released Date/Time: November 06, 2024 07:13 AM Reporting Lab: [place] [address] [facility] [address] Performing Lab: [place] [address] [facility] [address] [facility] RENAL PANEL PHOSPHATE [MASS/VOLUM E] IN SERUM OR PLASMA 3.6 mg/dL 2.3 - 4.7 11/10 Specimen Type: PLASMA Comment: No hemolysis noted. Ordering Provider: FRANCO KOCH Report Released Date/Time: November 06, 2024 07:13 AM Reporting Lab: [place] [address] [facility] [address] Performing Lab: [address] [address] [facility] RENAL PANEL ALBUMIN [MASS/VOLUM E] IN SERUM OR PLASMA 3.8 g/dL 3.4 - 5 11/10 Specimen Type: PLASMA Comment: No hemolysis noted. Ordering Provider: FRANCO KOCH Report Released Date/Time: November 06, 2024 07:13 AM Reporting Lab: [facility] [address] [place] [address] Performing Lab: [address] [phone] [place] [address] RENAL PANEL GLOMERULAR FILTRATION RATE/1.73 SQ M.PREDICTED [VOLUME RATE/AREA] IN SERUM, PLASMA OR BLOOD BY CREATININE- BASED FORMULA (CKD-EPI 2020) 87.0 60 11/10 Specimen Type: PLASMA Comment: No hemolysis noted. Ordering Provider: FRANCO KOCH Report Released Date/Time: November 06, 2024 07:13 AM Reporting Lab: [address] [address] Performing Lab: [address] [phone] [place] [address] CBC LEUKOCYTES [#/VOLUME] IN BLOOD BY AUTOMATED COUNT 9.0 10*3/u L 3.6 - 11.2 11/10 Specimen Type: BLOOD No comment entered. Ordering Provider: FRANCO KOCH Report Released Date/Time: November 06, 2024 07:13 AM Reporting Lab: [address] [address] Performing Lab: [address] [address] [facility] CBC ERYTHROCYTE S [#/VOLUME] IN BLOOD BY AUTOMATED COUNT 5.85 10*6/u L 4.10 - 5.70 11/10 H Specimen Type: BLOOD No comment entered. Ordering Provider: FRANCO KOCH Report Released Date/Time: November 06, 2024 07:13 AM Reporting Lab: [address] [address] Performing Lab: [address] [address] [facility] CBC HEMOGLOBIN [MASS/VOLUM E] IN BLOOD 16.3 g/dL 13.1 - 16.8 11/10 Specimen Type: BLOOD No comment entered. Ordering Provider: FRANCO KOCH Report Released Date/Time: November 06, 2024 07:13 AM Reporting Lab: [address] [address] Performing Lab: [address] [phone] [place] [address] CBC HEMATOCRIT [VOLUME FRACTION] OF BLOOD 51.2 38.2 - 48.4 11/10 H Specimen Type: BLOOD No comment entered. Ordering Provider: FRANCO KOCH Report Released Date/Time: November 06, 2024 07:13 AM Reporting Lab: [place] [address] Performing Lab: [phone] CBC MCV [ENTITIC VOLUME] BY AUTOMATED COUNT 87.5 fL 80.0 - 100.0 11/10 Specimen Type: BLOOD No comment entered. Ordering Provider: FRANCO KOCH Report Released Date/Time: November 06, 2024 07:13 AM Reporting Lab: [address] [address] Performing Lab: [address] [phone] CBC MCH [ENTITIC MASS] BY AUTOMATED COUNT 27.9 pg 27.0 - 34.0 11/10 Specimen Type: BLOOD No comment entered. Ordering Provider: FRANCO KOCH Report Released Date/Time: November 06, 2024 07:13 AM Reporting Lab: [place] [phone] Performing Lab: [address] [phone] [place] [address] CBC MCHC [MASS/VOLUM E] BY AUTOMATED COUNT 31.8 g/dL 33.0 - 36.0 11/10 L Specimen Type: BLOOD No comment entered. Ordering Provider: FRANCO KOCH Report Released Date/Time: November 06, 2024 07:13 AM Reporting Lab: [place] [phone] Performing Lab: [address] [address] [facility] CBC PLATELETS [#/VOLUME] IN BLOOD BY AUTOMATED COUNT 252 10*3/u L 150 - 400 11/10 Specimen Type: BLOOD No comment entered. Ordering Provider: FRANCO KOCH Report Released Date/Time: November 06, 2024 07:13 AM Reporting Lab: [place] [address] Performing Lab: [address] [phone] [address] CBC PLATELET MEAN VOLUME [ENTITIC VOLUME] IN BLOOD BY AUTOMATED COUNT 10.2 fL 7.5 - 11.2 11/10 Specimen Type: BLOOD No comment entered. Ordering Provider: FRANCO KOCH Report Released Date/Time: November 06, 2024 07:13 AM Reporting Lab: [address] [address] Performing Lab: [address] [address] [facility] CBC ERYTHROCYTE DISTRIBUTIO N WIDTH [RATIO] BY AUTOMATED COUNT 15.3 11.8 - 15.1 11/10 H Specimen Type: BLOOD No comment entered. Ordering Provider: FRANCO KOCH Report Released Date/Time: November 06, 2024 07:13 AM Reporting Lab: [place] [phone] Performing Lab: [address] [address] [facility] CBC LYMPHOCYTES /100 LEUKOCYTES IN BLOOD BY AUTOMATED COUNT 20 11/10 Specimen Type: BLOOD No comment entered. Ordering Provider: FRANCO KOCH Report Released Date/Time: November 06, 2024 07:13 AM Reporting Lab: [facility] [address] [facility] [address] Performing Lab: [facility] [address] [facility] [address] [facility] CBC MONOCYTES/1 00 LEUKOCYTES IN BLOOD BY AUTOMATED COUNT 9 11/10 Specimen Type: BLOOD No comment entered. Ordering Provider: FRANCO KOCH Report Released Date/Time: November 06, 2024 07:13 AM Reporting Lab: [facility] [address] [facility] [address] Performing Lab: [facility] [address] [facility] [address] [facility] CBC NEUTROPHILS /100 LEUKOCYTES IN BLOOD BY AUTOMATED COUNT 62 11/10 Specimen Type: BLOOD No comment entered. Ordering Provider: FRANCO KOCH Report Released Date/Time: November 06, 2024 07:13 AM Reporting Lab: [facility] [address] [facility] [address] Performing Lab: [facility] [address] [facility] [address] [facility] CBC EOSINOPHILS /100 LEUKOCYTES IN BLOOD BY AUTOMATED COUNT 7 11/10 Specimen Type: BLOOD No comment entered. Ordering Provider: FRANCO KOCH Report Released Date/Time: November 06, 2024 07:13 AM Reporting Lab: [facility] [address] [facility] [address] Performing Lab: [facility] [address] [facility] [address] [facility] CBC BASOPHILS/1 00 LEUKOCYTES IN BLOOD BY AUTOMATED COUNT 1 11/10 Specimen Type: BLOOD No comment entered. Ordering Provider: FRANCO KOCH Report Released Date/Time: November 06, 2024 07:13 AM Reporting Lab: [facility] [address] [facility] [address] Performing Lab: [place] [address] [facility] [address] [facility] CBC LYMPHOCYTES [#/VOLUME] IN BLOOD BY AUTOMATED COUNT 1.78 10*3/u L 0.77 - 4.50 11/10 Specimen Type: BLOOD No comment entered. Ordering Provider: FRANCO KOCH Report Released Date/Time: November 06, 2024 07:13 AM Reporting Lab: [address] [address] Performing Lab: [address] [address] [facility] CBC MONOCYTES [#/VOLUME] IN BLOOD BY AUTOMATED COUNT 0.85 10*3/u L 0.19 - 0.80 11/10 H Specimen Type: BLOOD No comment entered. Ordering Provider: FRANCO KOCH Report Released Date/Time: November 06, 2024 07:13 AM Reporting Lab: [address] [address] Performing Lab: [address] [address] [facility] CBC NEUTROPHILS [#/VOLUME] IN BLOOD BY AUTOMATED COUNT 5.62 10*3/u L 2.10 - 8.00 11/10 Specimen Type: BLOOD No comment entered. Ordering Provider: FRANCO KOCH Report Released Date/Time: November 06, 2024 07:13 AM Reporting Lab: [place] [address] [facility] [address] Performing Lab: [address] [address] [facility] CBC EOSINOPHILS [#/VOLUME] IN BLOOD BY AUTOMATED COUNT 0.65 10*3/u L 0.00 - 0.60 11/10 H Specimen Type: BLOOD No comment entered. Ordering Provider: FRANCO KOCH Report Released Date/Time: November 06, 2024 07:13 AM Reporting Lab: [place] [address] [address] [facility] [address] Performing Lab: [place] [address] [facility] [address] [facility] CBC BASOPHILS [#/VOLUME] IN BLOOD BY AUTOMATED COUNT 0.08 10*3/u L 0.00 - 0.20 11/10 Specimen Type: BLOOD No comment entered. Ordering Provider: FRANCO KOCH Report Released Date/Time: November 06, 2024 07:13 AM Reporting Lab: [place] [address] [facility] [address] Performing Lab: [place] [address] [place] [phone] MAGNESIUM MAGNESIUM [MASS/VOLUM E] IN SERUM OR PLASMA 2.1 mg/dL 1.6 - 2.6 11/09 Specimen Type: PLASMA Comment: No hemolysis noted. Ordering Provider: FRANCO KOCH Report Released Date/Time: November 06, 2024 07:13 AM Reporting Lab: [place] [address] [facility] [address] Performing Lab: [place] [address] [facility] [address] [facility] RENAL PANEL CREATININE [MASS/VOLUM E] IN SERUM OR PLASMA 0.86 mg/dL 0.7 - 1.3 11/09 Specimen Type: PLASMA Comment: No hemolysis noted. Ordering Provider: FRANCO KOCH Report Released Date/Time: November 06, 2024 07:13 AM Reporting Lab: [place] [address] [facility] [address] Performing Lab: [address] [address] [facility] RENAL PANEL UREA NITROGEN [MASS/VOLUM E] IN SERUM OR PLASMA 18.6 mg/dL 9.0 - 25.0 11/09 Specimen Type: PLASMA Comment: No hemolysis noted. Ordering Provider: FRANCO KOCH Report Released Date/Time: November 06, 2024 07:13 AM Reporting Lab: [facility] [address] [facility] [address] Performing Lab: [facility] [address] [facility] [address] [facility] RENAL PANEL GLUCOSE [MASS/VOLUM E] IN SERUM OR PLASMA 87 mg/dL 72 - 99 11/09 Specimen Type: PLASMA Comment: No hemolysis noted. Ordering Provider: FRANCO KOCH Report Released Date/Time: November 06, 2024 07:13 AM Reporting Lab: [place] [address] [facility] [address] Performing Lab: [place] [address] [facility] [address] [facility] RENAL PANEL SODIUM [MOLES/VOLU ME] IN SERUM OR PLASMA 138 meq/L 136 - 145 11/09 Specimen Type: PLASMA Comment: No hemolysis noted. Ordering Provider: FRANCO KOCH Report Released Date/Time: November 06, 2024 07:13 AM Reporting Lab: [place] [address] [facility] [address] Performing Lab: [place] [address] [facility] [address] [facility] RENAL PANEL POTASSIUM [MOLES/VOLU ME] IN SERUM OR PLASMA 4.5 meq/L 3.5 - 5 11/09 Specimen Type: PLASMA Comment: No hemolysis noted. Ordering Provider: FRANCO KOCH Report Released Date/Time: November 06, 2024 07:13 AM Reporting Lab: [place] [address] [facility] [address] Performing Lab: [address] [address] [facility] RENAL PANEL CHLORIDE [MOLES/VOLU ME] IN SERUM OR PLASMA 104 meq/L 98 - 107 11/09 Specimen Type: PLASMA Comment: No hemolysis noted. Ordering Provider: FRANCO KOCH Report Released Date/Time: November 06, 2024 07:13 AM Reporting Lab: [address] [address] Performing Lab: [facility] [address] [place] [address] [facility] RENAL PANEL CARBON DIOXIDE, TOTAL [MOLES/VOLU ME] IN SERUM OR PLASMA 27 meq/L 22 - 31 11/09 Specimen Type: PLASMA Comment: No hemolysis noted. Ordering Provider: FRANCO KOCH Report Released Date/Time: November 06, 2024 07:13 AM Reporting Lab: [address] [address] Performing Lab: [address] [phone] [place] [address] RENAL PANEL CALCIUM [MASS/VOLUM E] IN SERUM OR PLASMA 9.0 mg/dL 8.4 - 10.4 11/09 Specimen Type: PLASMA Comment: No hemolysis noted. Ordering Provider: FRANCO KOCH Report Released Date/Time: November 06, 2024 07:13 AM Reporting Lab: [place] [address] [facility] [address] Performing Lab: [place] [address] [facility] [address] [facility] RENAL PANEL PHOSPHATE [MASS/VOLUM E] IN SERUM OR PLASMA 3.2 mg/dL 2.3 - 4.7 11/09 Specimen Type: PLASMA Comment: No hemolysis noted. Ordering Provider: FRANCO KOCH Report Released Date/Time: November 06, 2024 07:13 AM Reporting Lab: [address] [address] Performing Lab: [address] [address] [facility] RENAL PANEL ALBUMIN [MASS/VOLUM E] IN SERUM OR PLASMA 3.5 g/dL 3.4 - 5 11/09 Specimen Type: PLASMA Comment: No hemolysis noted. Ordering Provider: FRANCO KOCH Report Released Date/Time: November 06, 2024 07:13 AM Reporting Lab: [address] [address] Performing Lab: [place] [address] [facility] [address] RENAL PANEL GLOMERULAR FILTRATION RATE/1.73 SQ M.PREDICTED [VOLUME RATE/AREA] IN SERUM, PLASMA OR BLOOD BY CREATININE- BASED FORMULA (CKD-EPI 2020) 87.0 60 11/09 Specimen Type: PLASMA Comment: No hemolysis noted. Ordering Provider: FRANCO KOCH Report Released Date/Time: November 06, 2024 07:13 AM Reporting Lab: [place] [address] [facility] [address] Performing Lab: [address] [phone] [address] CBC LEUKOCYTES [#/VOLUME] IN BLOOD BY AUTOMATED COUNT 10.7 10*3/u L 3.6 - 11.2 11/09 Specimen Type: BLOOD Comment: prev diff 11/07/24. Ordering Provider: FRANCO KOCH Report Released Date/Time: November 06, 2024 07:13 AM Reporting Lab: [address] [address] Performing Lab: [place] [address] [facility] [address] [place] [address] CBC ERYTHROCYTE S [#/VOLUME] IN BLOOD BY AUTOMATED COUNT 5.84 10*6/u L 4.10 - 5.70 11/09 H Specimen Type: BLOOD Comment: prev diff 11/07/24. Ordering Provider: FRANCO KOCH Report Released Date/Time: November 06, 2024 07:13 AM Reporting Lab: [address] [address] Performing Lab: [address] [place] [address] [facility] CBC HEMOGLOBIN [MASS/VOLUM E] IN BLOOD 16.6 g/dL 13.1 - 16.8 11/09 Specimen Type: BLOOD Comment: prev diff 11/07/24. Ordering Provider: FRANCO KOCH Report Released Date/Time: November 06, 2024 07:13 AM Reporting Lab: [place] [phone] Performing Lab: [address] [phone] [place] [address] CBC HEMATOCRIT [VOLUME FRACTION] OF BLOOD 50.9 38.2 - 48.4 11/09 H Specimen Type: BLOOD Comment: prev diff 11/07/24. Ordering Provider: FRANCO KOCH Report Released Date/Time: November 06, 2024 07:13 AM Reporting Lab: [address] [address] Performing Lab: [address] [phone] [place] [address] CBC MCV [ENTITIC VOLUME] BY AUTOMATED COUNT 87.2 fL 80.0 - 100.0 11/09 Specimen Type: BLOOD Comment: prev diff 11/07/24. Ordering Provider: FRANCO KOCH Report Released Date/Time: November 06, 2024 07:13 AM Reporting Lab: [address] [address] Performing Lab: [address] [address] [facility] CBC MCH [ENTITIC MASS] BY AUTOMATED COUNT 28.4 pg 27.0 - 34.0 11/09 Specimen Type: BLOOD Comment: prev diff 11/07/24. Ordering Provider: FRANCO KOCH Report Released Date/Time: November 06, 2024 07:13 AM Reporting Lab: [address] [address] Performing Lab: [place] [address] [facility] [address] [facility] CBC MCHC [MASS/VOLUM E] BY AUTOMATED COUNT 32.6 g/dL 33.0 - 36.0 11/09 L Specimen Type: BLOOD Comment: prev diff 11/07/24. Ordering Provider: FRANCO KOCH Report Released Date/Time: November 06, 2024 07:13 AM Reporting Lab: [place] [address] [facility] [address] Performing Lab: [address] [phone] CBC PLATELETS [#/VOLUME] IN BLOOD BY AUTOMATED COUNT 260 10*3/u L 150 - 400 11/09 Specimen Type: BLOOD Comment: prev diff 11/07/24. Ordering Provider: FRANCO KOCH Report Released Date/Time: November 06, 2024 07:13 AM Reporting Lab: [place] [address] [facility] [address] Performing Lab: [address] [phone] CBC PLATELET MEAN VOLUME [ENTITIC VOLUME] IN BLOOD BY AUTOMATED COUNT 10.6 fL 7.5 - 11.2 11/09 Specimen Type: BLOOD Comment: prev diff 11/07/24. Ordering Provider: FRANCO KOCH Report Released Date/Time: November 06, 2024 07:13 AM Reporting Lab: [address] [address] Performing Lab: [address] [phone] CBC ERYTHROCYTE DISTRIBUTIO N WIDTH [RATIO] BY AUTOMATED COUNT 15.2 11.8 - 15.1 11/09 H Specimen Type: BLOOD Comment: prev diff 11/07/24. Ordering Provider: FRANCO KOCH Report Released Date/Time: November 06, 2024 07:13 AM Reporting Lab: [facility] [address] [facility] [address] Performing Lab: [facility] [address] [facility] [address] [facility] CBC LYMPHOCYTES /100 LEUKOCYTES IN BLOOD BY AUTOMATED COUNT 16 11/09 Specimen Type: BLOOD Comment: prev diff 11/07/24. Ordering Provider: FRANCO KOCH Report Released Date/Time: November 06, 2024 07:13 AM Reporting Lab: [facility] [address] [facility] [address] Performing Lab: [place] [address] [facility] [address] [facility] CBC MONOCYTES/1 00 LEUKOCYTES IN BLOOD BY AUTOMATED COUNT 11 11/09 Specimen Type: BLOOD Comment: prev diff 11/07/24. Ordering Provider: FRANCO KOCH Report Released Date/Time: November 06, 2024 07:13 AM Reporting Lab: [place] [address] [facility] [address] Performing Lab: [place] [address] [facility] [address] [facility] CBC NEUTROPHILS /100 LEUKOCYTES IN BLOOD BY AUTOMATED COUNT 67 11/09 Specimen Type: BLOOD Comment: prev diff 11/07/24. Ordering Provider: FRANCO KOCH Report Released Date/Time: November 06, 2024 07:13 AM Reporting Lab: [facility] [address] [facility] [address] Performing Lab: [facility] [address] [facility] [address] [facility] CBC EOSINOPHILS /100 LEUKOCYTES IN BLOOD BY AUTOMATED COUNT 5 11/09 Specimen Type: BLOOD Comment: prev diff 11/07/24. Ordering Provider: FRANCO KOCH Report Released Date/Time: November 06, 2024 07:13 AM Reporting Lab: [facility] [address] [facility] [address] Performing Lab: [place] [address] [facility] [address] [facility] CBC BASOPHILS/1 00 LEUKOCYTES IN BLOOD BY AUTOMATED COUNT 1 11/09 Specimen Type: BLOOD Comment: prev diff 11/07/24. Ordering Provider: FRANCO KOCH Report Released Date/Time: November 06, 2024 07:13 AM Reporting Lab: [address] [address] Performing Lab: [place] [address] [facility] [address] [facility] CBC LYMPHOCYTES [#/VOLUME] IN BLOOD BY AUTOMATED COUNT 1.65 10*3/u L 0.77 - 4.50 11/09 Specimen Type: BLOOD Comment: prev diff 11/07/24. Ordering Provider: FRANCO KOCH Report Released Date/Time: November 06, 2024 07:13 AM Reporting Lab: [place] [address] [facility] [address] Performing Lab: [address] [address] [facility] CBC MONOCYTES [#/VOLUME] IN BLOOD BY AUTOMATED COUNT 1.14 10*3/u L 0.19 - 0.80 11/09 H Specimen Type: BLOOD Comment: prev diff 11/07/24. Ordering Provider: FRANCO KOCH Report Released Date/Time: November 06, 2024 07:13 AM Reporting Lab: [place] [address] [facility] [address] Performing Lab: [address] [address] [facility] CBC NEUTROPHILS [#/VOLUME] IN BLOOD BY AUTOMATED COUNT 7.16 10*3/u L 2.10 - 8.00 11/09 Specimen Type: BLOOD Comment: prev diff 11/07/24. Ordering Provider: FRANCO KOCH Report Released Date/Time: November 06, 2024 07:13 AM Reporting Lab: [address] [address] Performing Lab: [place] [address] [facility] [address] [facility] CBC EOSINOPHILS [#/VOLUME] IN BLOOD BY AUTOMATED COUNT 0.58 10*3/u L 0.00 - 0.60 11/09 Specimen Type: BLOOD Comment: prev diff 11/07/24. Ordering Provider: FRANCO KOCH Report Released Date/Time: November 06, 2024 07:13 AM Reporting Lab: [address] [address] Performing Lab: [address] [address] [facility] CBC BASOPHILS [#/VOLUME] IN BLOOD BY AUTOMATED COUNT 0.08 10*3/u L 0.00 - 0.20 11/09 Specimen Type: BLOOD Comment: prev diff 11/07/24. Ordering Provider: FRANCO KOCH Report Released Date/Time: November 06, 2024 07:13 AM Reporting Lab: [place] [address] [facility] [id number] Performing Lab: [place] [address] [facility] [address] [facility] MAGNESIUM MAGNESIUM [MASS/VOLUM E] IN SERUM OR PLASMA 1.9 mg/dL 1.6 - 2.6 11/08 Specimen Type: PLASMA Comment: No hemolysis noted. Ordering Provider: FRANCO KOCH Report Released Date/Time: November 06, 2024 07:13 AM Reporting Lab: [address] [address] Performing Lab: [address] [address] [facility] Vital Signs Combined list of inpatient and outpatient Vital Signs from [employer] of Defense and [employer] Affairs, ranging from 12 months to all on record, depending upon the facility. Vital Sign Value Date Comments Source PAIN 0 11/12/2024 00:24:00 [facility] SYSTOLIC BLOOD PRESSURE 124 11/11/2024 06:07:37 [facility] DIASTOLIC BLOOD PRESSURE 77 11/11/2024 06:07:37 [facility] PULSE OXIMETRY 98 11/11/2024 06:07:37 [facility] PAIN 0 11/11/2024 06:07:37 [facility] TEMPERATURE 97.6 11/11/2024 06:07:37 [facility] PULSE 74 11/11/2024 06:07:37 [facility] RESPIRATION 18 11/11/2024 06:07:37 [facility] SYSTOLIC BLOOD PRESSURE 104 11/10/2024 06:21:05 [facility] [facility] DIASTOLIC BLOOD PRESSURE 68 11/10/2024 06:21:05 [facility] PULSE OXIMETRY 98 11/10/2024 06:21:05 [facility] PAIN 0 11/10/2024 06:21:05 [facility] TEMPERATURE 97.8 11/10/2024 06:21:05 [facility] PULSE 64 11/10/2024 06:21:05 [facility] RESPIRATION 16 11/10/2024 06:21:05 [facility] SYSTOLIC BLOOD PRESSURE 135 11/09/2024 05:18:55 [facility] DIASTOLIC BLOOD PRESSURE 88 11/09/2024 05:18:55 [facility] PULSE OXIMETRY 98 11/09/2024 05:18:55 [facility] WEIGHT 209.5 11/09/2024 05:18:55 [facility] BMI 30 kg/m2 11/09/2024 05:18:55 [facility] PAIN 0 11/09/2024 05:18:55 [facility] TEMPERATURE 97.8 11/09/2024 05:18:55 [facility] PULSE 88 11/09/2024 05:18:55 [facility] RESPIRATION 18 11/09/2024 05:18:55 [facility] SYSTOLIC BLOOD PRESSURE 113 11/08/2024 07:23:18 [facility] DIASTOLIC BLOOD PRESSURE 71 11/08/2024 07:23:18 [facility] PULSE OXIMETRY 95 11/08/2024 07:23:18 [facility] WEIGHT 210.2 11/08/2024 07:23:18 [facility] BMI 30 kg/m2 11/08/2024 07:23:18 [facility] TEMPERATURE 98.1 11/08/2024 07:23:18 [facility] PULSE 116 11/08/2024 07:23:18 [facility] RESPIRATION 18 11/08/2024 07:23:18 [facility] Encounters Combined list of: 1) Encounters from [facility] facilities going backup to the last 18 months, not all [place] inpatient encounters are included; 2) Encounters from the Department of [facility] facilities going backup to 280 months. Location Location Details Encounter Type Encounter Number Reason For Visit Attending Provider ADM Date DC Date Status Disposition Source [facility] Outpatient Encounter [id number] 09/18 [facility] Outpatient Encounter [id number] 09/18 [facility] Outpatient Encounter [id number] [id number] 09/19 [facility] Outpatient Encounter [id number] [id number] 10/28 [facility] Outpatient Encounter [id number] [id number] 10/30 [facility] Outpatient Encounter [id number] [id number] 10/30 [facility] Outpatient Encounter [id number] [id number] 12/13 [facility] Outpatient Encounter [id number] [id number] 01/20 [facility] Outpatient Encounter [id number] [id number] 02/03 [facility] Outpatient Encounter 27734-5.55 [id number] 05/30 [facility] Outpatient Encounter [id number] [id number] 05/30 [facility] Outpatient Encounter 88530-2.55 [id number] Diagnos is: ICD-10- CM Z00.01 Encount er for general adult medical exam w abnorma l finding s TERRA,ROSANNA L L 06/02 [facility] Outpatient Encounter [id number] [id number] 06/03 [facility] Outpatient Encounter [id number] [id number] 06/03 [facility] Outpatient Encounter [id number] [id number] 06/03 [facility] Outpatient Encounter [id number] [id number] 06/03 [facility] Outpatient Encounter 27945-4.55 [id number] 06/11 [facility] Outpatient Encounter 96945-4.55 [id number] 06/25 [facility] OPC SYNCH AUDIO-ONLY EST SF 10 09954-7.55 [id number] Diagnos is: ICD-10- CM Z02.89 Encount er for other adminis trative examISAURO Hernandez 07/11 [facility] Outpatient Encounter 90973-8.55 [id number] 08/05 [facility] Outpatient Encounter 79472-6.55 [id number] 08/14 [facility] Outpatient Encounter 37821-4.55 [id number] 09/18 [facility] Outpatient Encounter 01715-2.55 [id number] 10/12 [facility] Outpatient Encounter [id number] [id number] 10/13 [facility] CASE MANAGEMENT [id number] [id number] Diagnos is: ICD-10- CM Z74.3 Need for continu ous supervi tammi ELENA RAMIREZ 10/14 [facility] Outpatient Encounter [id number] [id number] 10/14 [facility] Outpatient Encounter [id number] [id number] 10/14 [facility] Outpatient Encounter 73984-2.55 [id number] 10/14 [facility] Outpatient Encounter [id number] [id number] 10/15 [facility] Outpatient Encounter 17685-8.65 [id number] 2 JOHNNY BLOOM 10/16 [facility] En[facility] [id number] [id number] 10/17 [facility] CASE MANAGEMENT [id number] [id number] Diagnos is: ICD-10- CM Z75.9 Unsp problem related to med facilit ies and oth health care ELENA RAMIREZ 10/20 [facility] Outpatient Encounter [id number] [id number] 10/20 [facility] Outpatient Encounter 88779-2.55 [id number] 10/21 [facility] Outpatient Encounter [id number] [id number] 10/22 [facility] Outpatient Encounter 48545-4.65 [id number] 4 ZEYAD DSOUZA 10/22 [facility] Outpatient Encounter 94228-9.55 [id number] 10/23 [facility] Outpatient Encounter 84874-3.65 [id number] 5 10/23 [facility] CASE MANAGEMENT 87921-7.55 [id number] Diagnos is: ICD-10- CM Z63.8 Other specifi ed problem s related to primary support group ELENA RAMIREZ 10/23 [facility] Outpatient Encounter 27105-2.55 [id number] 10/27 [facility] Outpatient Encounter 06671-8.55 [id number] 10/31 [facility] CASE MANAGEMENT 81901-0.55 [id number] Diagnos is: ICD-10- CM Z75.1 Person ariel briggs admissi on to adequat e facilit y elsewhe re ELENA RAMIREZ 11/03 [facility] Outpatient Encounter [id number] [id number] 11/03 [facility] Outpatient Encounter 78464-3.65 [id number] 0 11/05 [facility] Outpatient Encounter 96378-4.65 [id number] 9 11/05 [facility] Outpatient Encounter 08756-5.65 [id number] 1 ANUPAM MCKENNA 11/05 [facility] Inpatient Encounter 69947-3.65 [id number] 8 Admit Reason: AMS TWOA,MED 11/05 Regular discharge from inpatient treatment. [facility] Inpatient Encounter 72517-3.65 [id number] 1 PAULINA BRANDON A 11/[address] [facility] Inpatient Encounter 31113-7.65 [id number] 1 PAULINA BRANDON A 11/05 [facility] Inpatient Encounter 72398-1.65 [id number] 4 PAULINA BRANDON A 11/05 [facility] Inpatient Encounter [id number] [id number] 6 CHELI BABIN 11/06 [facility] Inpatient Encounter 66467-3.65 [id number] 9 CHELI BABIN 11/06 [facility] Inpatient Encounter 54110-2.65 [id number] 4 CHELI BABIN 11/06 [facility] Inpatient Encounter [id number] [id number] 6 11/06 [facility] Inpatient Encounter 17074-9.65 [id number] 4 ALONSO WEBSTER 11/06 [facility] IP/OBS CONSLTJ NEW/EST HI 80 09585-0.65 [id number] 4 Diagnos is: ICD-10- CM R41.9 Unsp symptom s and signs w cogniti ve functio ns and awarene ss ALONSO SHCUMACHER S 11/06 [facility] Outpatient Encounter [id number] [id number] 11/06 [facility] Inpatient Encounter 85169-3.65 [id number] 6 ALONSO WEBSTER 11/06 [facility] Inpatient Encounter 51889-0.65 [id number] 8 ALONSO WEBSTER N 11/06 [facility] Inpatient Encounter 86020-0.65 [id number] 8 OFELIA BUENROSTRO 11/06 [facility] En[facility] 77767-9.65 [id number] 1 CHELI BABIN 11/06 [facility] Inpatient Encounter 37936-1.65 [id number] 2 CHELI BABIN 11/06 [facility] Inpatient Encounter 70194-4.65 [id number] 4 CHELI BABIN 11/07 [facility] Inpatient Encounter 56491-8.65 [id number] 6 AMY RUIZ 11/07 [facility] CRIME LAB TECHNICIAN SILK BLOCKER INDIVIDU 15410-4.65 [id number] 8 Diagnos is: ICD-10- CM 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 DICK Motta 11/07 [facility] Inpatient Encounter 38679-3.65 [id number] 8 TIPTON R 11/07 [facility] PT EVAL LOW COMPLEX 20 MIN 03693-6.65 [id number] 2 Diagnos is: ICD-10- CM F03.90 Unsp dementi a, unsp severit y, without beh/psy ch/mood /anx SPRINGSHABNAM Singh 11/07 [facility] Inpatient Encounter [id number] [id number] 6 LEOLA-ISAIAS MICHELLEALONSO IBARRA N 11/07 [facility] SELF CARE MNGMENT TRAINING 59447-3.65 [id number] 0 Diagnos is: ICD-10- CM F03.90 Unsp dementi a, unsp severit y, without beh/psy ch/mood /anx MELINDA ALLEN AM 11/07 [facility] Inpatient Encounter [id number] [id number] 0 MOOKIEL-ISAIAS PERRYALONSO N 11/07 [facility] Inpatient Encounter 10875-7.65 [id number] 5 TIPTON R 11/07 [facility] Inpatient Encounter 26890-6.65 [id number] 2 MOOKIEL-ISAIAS PERRYALONSO N 11/07 [facility] Inpatient Encounter 75120-8.65 [id number] 4 OLAF CHELI B 11/07 [facility] Inpatient Encounter 14675-4.65 [id number] 1 OLAF CHELI B 11/07 [facility] Inpatient Encounter 86046-5.65 [id number] 6 OLAF CHELI B 11/07 [facility] Inpatient Encounter 66645-4.65 [id number] 8 OLAF CHELI B 11/08 [facility] Inpatient Encounter [id number] [id number] 4 RENETTA GIMENEZ 11/08 [facility] Inpatient Encounter [id number] [id number] 6 RENETTA GIMENEZ 11/08 [facility] Inpatient Encounter [id number] [id number] 0 RENETTA GIMENEZ 11/08 [facility] Inpatient Encounter 77309-7.65 [id number] 2 CHARLOTTE PATRICK 11/08 [facility] Inpatient Encounter 80157-9.65 [id number] 8 NIKIA STYLES 11/08 [facility] Inpatient Encounter [id number] [id number] 5 NIKIA STYLES 11/09 [facility] Inpatient Encounter 45414-5.65 [id number] 7 NIKIA STYLES 11/[address] [facility] En[facility] 78004-3.65 [id number] 4 NIKIA STYLES R 11/09 [facility] Inpatient Encounter 67723-3.65 [id number] 6 NIKIA STYLES 11/09 [facility] Inpatient Encounter 08780-4.65 [id number] 8 EFRAINSOTO STILES 11/09 [facility] Inpatient Encounter 96273-1.65 [id number] 0 EFRAINSOTO STILES 11/09 [facility] Inpatient Encounter 63168-4.65 [id number] 2 SOTO ZUNIGA 11/09 [facility] Inpatient Encounter 14943-9.65 [id number] 2 SOTO ZUNIGA 11/09 [facility] Inpatient Encounter 93366-1.65 [id number] 8 NIKIA STYLES 11/09 [facility] Inpatient Encounter 60276-2.65 [id number] 5 NIKIA STYLES 11/10 [facility] Inpatient Encounter 72008-2.65 [id number] 9 NIKIA STYLESKENYON Mahoney 11/10 [facility] Inpatient Encounter 81650-3.65 [id number] 5 SA BRANDON WALLACE 11/10 [facility] Inpatient Encounter 95263-6.65 [id number] 7 SA BRANDON WALLACE 11/10 [facility] Inpatient Encounter 15976-3.65 [id number] 4 SA BRANDON WALLACE 11/10 [facility] Inpatient Encounter 79894-7.65 [id number] 0 SA BRANDON WALLACE 11/10 [facility] Inpatient Encounter 28496-8.65 [id number] 1 ABBIE WILKINS 11/10 [facility] CRIME LAB TECHNICIAN SILK BLOCKER INDIVIDU [id number] [id number] 0 Diagnos is: ICD-10- CM 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 SERJIO Heath 11/10 [facility] Inpatient Encounter 10052-3.65 [id number] 3 SA BRANDON WALLACE 11/10 [facility] In[facility] Encounter 36232-0.65 [id number] 7 TADEO RODRIGUEZ ISS 11/10 [facility] Inpatient Encounter 91406-8.65 [id number] 4 TADEO RODRIGUEZ ISS 11/10 [facility] Inpatient Encounter 78952-9.65 [id number] 5 TADEO RODRIGUEZ ISS 11/10 [facility] Inpatient Encounter 16687-9.65 [id number] 4 TADEO RODRIGUEZ ISS 11/10 [facility] Inpatient Encounter 88217-7.65 [id number] 2 TADEO RODRIGUEZ ISS 11/11 [facility] Inpatient Encounter 45415-3.65 [id number] 2 TADEO RODRIGUEZ ISS 11/11 [facility] Inpatient Encounter 33345-7.65 [id number] 2 HORVATH 11/11 [facility] Inpatient Encounter 82467-4.65 [id number] 0 FRANCE SPAULDING ORIA 11/[address] [facility] Encounter 51491-8.55 [id number] 11/11 [facility] Inpatient Encounter 15553-0.65 [id number] 7 FRANCE SPAULDING ORIA 11/11 [facility] Inpatient Encounter [id number] [id number] 1 HORVATH 11/11 [facility] Inpatient Encounter 70331-3.65 [id number] 7 11/12 [facility] Inpatient Encounter 21086-9.65 [id number] 7 KATHERYN RAMOS ONICA J 11/[address] [facility] Inpatient Encounter [id number] [id number] 2 KATHERYN RAMOS ONICA J 11/12 [facility] Inpatient Encounter 79844-4.65 [id number] 9 KATHERYN RAMOS ONICA J 11/12 [facility] Inpatient Encounter 08854-9.65 [id number] 7 RYAN MOLINA 11/[address] [facility] Inpatient Encounter 85965-5.65 [id number] 0 KATHERYN RAMOS ONICA J 11/12 [facility] Inpatient Encounter 32837-2.65 [id number] 8 KATHERYN RAMOS ONICA J 11/12 [facility] Inpatient Encounter 91578-7.65 [id number] 4 PAULINA BRANDON 11/[address] Inpatient Encounter 21185-9.65 [id number] 8 BRANDON,PAULINA DING A 11/12 [facility] Inpatient Encounter 49820-3.65 [id number] 8 GIDEON ERAZO N 11/12 [facility] Encounter 51794-2.65 [id number] 1 GIDEON ERAZO N 11/12 [facility] Inpatient Encounter 46997-2.65 [id number] 0 ROMAPAULINA DING A 11/12 [facility] CASE MANAGEMENT 72847-8.55 [id number] Diagnos is: ICD-10- CM Z74.1 Need for assista nce with persona l care ELENA RAMIREZ 11/12 [facility] Inpatient Encounter [id number] [id number] 6 SHAWANDA BUTTERFIELD 11/12 [facility] BHV ASSMT/REAS SESSMENT 67929-5.55 [id number] Diagnos is: ICD-10- CM Z74.1 Need for assista nce with persona l care DEANGELO BELTRAN 11/12 [facility] Outpatient Encounter 50732-7.55 [id number] 11/12 [facility] NQHP OL DIG ASSMT&MGMT 5-10 20480-1.65 [id number] 2 Diagnos is: ICD-10- CM I48.91 Unspeci fied atrial fibrill ation LISS OROZCO 11/12 [facility] Outpatient Encounter 84914-1.55 [id number] 11/12 [facility] Inpatient Encounter 28378-3.65 [id number] 1 GIDEON ERAZO 11/12 [facility] Inpatient Encounter 82186-6.65 [id number] 0 SHAWANDA BUTTERFIELD BRAD 11/12 [facility] Outpatient Encounter 38975-5.55 [id number] 11/12 [facility] Inpatient Encounter 82851-7.65 [id number] 5 GIDEON ERAZO 11/12 [facility] Outpatient Encounter 74986-3.55 [id number] 11/13 [facility] NQHP OL DIG ASSMT&MGMT 11-20 14788-3.65 [id number] 8 Diagnos is: ICD-10- CM Z51.81 Encount er for therape utic drug level monitor LISS Powell 11/13 [facility] Outpatient Encounter 28561-6.55 [id number] 11/13 [facility] Outpatient Encounter 90570-7.55 [id number] 11/13 [facility] Outpatient Encounter 38599-1.55 [id number] 11/13 [facility] Outpatient Encounter 11231-4.55 [id number] 11/13 [facility] Outpatient Encounter 05957-1.65 [id number] 3 11/13 [facility] Outpatient Encounter 72990-4.65 [id number] 4 11/13 [facility] Outpatient Encounter 76934-8.65 [id number] 3 11/13 [facility] Outpatient Encounter 18497-0.55 [id number] 11/14 [facility] Outpatient Encounter 92832-6.65 [id number] 0 11/14 [facility] Outpatient Encounter 16998-5.55 [id number] 11/14 [facility] Out[facility]counter 50426-6.55 [id number] 11/14 [facility] Outpatient Encounter 84813-0.65 [id number] 1 11/14 [facility] Out[facility] Encounter 68912-4.55 [id number] 11/16 [facility] Outpatient Encounter 65547-0.65 [id number] 4 11/17 [facility] Outpatient Encounter 13625-8.55 [id number] 11/17 [facility] Out[facility] Encounter 94978-3.55 [id number] 11/17 [facility] Outpatient Encounter 35311-3.55 [id number] 11/17 [facility] PH1 ASSMT&MGMT NQHP 11-20 50209-9.55 [id number] Diagnos is: ICD-10- CM Z09 Encntr for f/u exam aft trtmt for cond oth than CYRUS Alexandre 11/18 [facility] Out[facility] Encounter 57525-4.55 [id number] 11/18 [facility] Outpatient Encounter [id number] [id number] 11/18 [facility] Outpatient Encounter 26246-6.55 [id number] 11/19 [facility] Outpatient Encounter 35884-8.55 [id number] 11/19 [facility] Outpatient Encounter 44215-2.55 [id number] 12/01 [facility] Outpatient Encounter 11119-5.55 [id number] 12/03 [facility] Outpatient Encounter 61433-6.55 [id number] 12/03 [facility] Outpatient Encounter 51484-3.55 [id number] 12/03 [facility] BRIEF COMUNICAJ TECH-BSD SVC 49709-6.55 [id number] Diagnos is: ICD-10- CM Z02.89 Encount er for other adminis trative examina ISAURO Aceves 12/05 [facility] Outpatient Encounter 56854-2.65 [id number] 2 12/08 [facility] CASE MANAGEMENT 61132-7.55 [id number] Diagnos is: ICD-10- CM Z65.8 Oth problem s related to psychos ocial circums tances JAMES,ELENA A D 12/10 [facility] CASE MANAGEMENT 66143-9.55 [id number] Diagnos is: ICD-10- CM Z65.9 Problem related to unspeci fied psychos ocial circums tances JAMES,ELENA A D 12/31 [facility] Outpatient Encounter 72628-5.55 [id number] 01/13 [facility] CASE MANAGEMENT 65789-6.55 [id number] Diagnos is: ICD-10- CM Z74.3 Need for continu ous supervi tammi JAMES,ELENA A D 01/13 [facility] SYNCH AUDIO-ONLY NEW LOW 30 96540-0.55 [id number] Diagnos is: ICD-10- CM 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 NINAINMARIA ESTHER 01/13 [facility] Outpatient Encounter 13901-7.55 [id number] 01/14 [facility] Outpatient Encounter 57616-7.55 [id number] 01/14 [facility] PH1 ASSMT&MGMT NQHP 5-10 63617-5.55 [id number] Diagnos is: ICD-10- CM R41.9 Unsp symptom s and signs w cogniti ve functio ns and awarene ss DICK CERVANTES 01/14 [facility] Outpatient Encounter 39438-1.55 [id number] 02/04 [facility] Outpatient Encounter 35874-3.55 [id number] 02/12 [facility] Social History Combined list of available smoking, tobacco, and other social history from Department of Defense and Veterans Affairs facilities. Social History Type Response Date Comment Sourc e Tobacco smoking status NHIS MT-TOBACCO NEVER USED CIGARETTES 06/02/2024 [facility] History of tobacco use MT-TOBACCO NEVER USED OTHER TYPE 06/02/2024 [facility] History of tobacco use ORYX ADMIT TOBACCO SCREEN REFUSED 10/17/2022 [facility] History of tobacco use VA-TOBACCO NEVER USED 10/16/2022 [facility] History of tobacco use VA-TOBACCO FORMER USER 05/12/2022 [facility] History of tobacco use MT-TOBACCO FORMER USER 05/02/2021 [facility] Plan of Care List of future care activities from [facility] facilities. Additional future care activities may be listed in the Assessment and Plan section. Date/Time Care Activity Care Activity Detail Facili ty 03/24/2025 AMBULATORY - MEDICINE AMBULATORY - MEDICI [facility] Advance Directives List of completed, amended, or rescinded Advance Directives on record at [facility] facilities. An actual copy of the Directive is not included. Date Advance Directive Provider Source 11/03/2022 ADVANCE DIRECTIVE DISCUSSION GIACOMO RAMIREZ [facility] 10/30/2022 ADVANCE DIRECTIVE [facility]LE[facility]
--- OUTSIDE RECORDS SUMMARY | 2025-02-12 21:24 | XMS_ITS ---
Author Name [facility] [place] [facility] [place] [facility] [facility] [place] Address [address] [place] [address] Care Team Providers Care Direct Marketing Analyst Name Role Phone SUKUMARGAGAN Primary Care Provider [...] Name Patient's Relationship to Policy Dickens [employer]NA [facility] (WNR) MEDICARE ADVANTAGE [facility] (WNR) Jul 09, 2018 [id number] SOO,PAKO IN PATIENT [employer] [facility] (WNR) MEDICARE ADVANTAGE [facility] (WNR) Jul 09, 2018 [id number] SOO,PAKO IN PATIENT Selected Encounter This section includes the information on record at [place] for the Encounter. Date/Time Encounter Type Encounter Description Reason Provider Source November 07, 2024 07:30 AM CTRS GLEASON OPERATOR INDIVIDU CTRS SERVICE - INDIVIDUAL ICD-10-CM Z71.81 Spiritual or baptism counseling LETI BEVERLY Ciro Encounter Template Text not used by [place] Assessments - Encounter Diagnoses This section includes the primary and secondary diagnoses documented for the Encounter. Date/Time Primary/Secondary Diagnosis Diagnosis Name Provider Source November 07, 2024 08:28 AM PRIMARY Spiritual or baptism counseling OBANDOMICHAEL [facility] Plan of Treatment: Future Appointments [...] 16, 2024 08:00 AM AMBULATORY - NONE [facility] December 01, 2024 10:00 AM AMBULATORY [facility] December 03, 2024 10:00 AM AMBULATORY [facility] December 05, 2024 11:45 AM AMBULATORY - SURGERY [facility] Mar 24, 2025 10:00 AM AMBULATORY - MEDICINE [facility] Mar 24, 2025 10:01 AM AMBULATORY - MEDICINE [facility] Mar 24, 2025 11:00 AM AMBULATORY - [facility] Lab Results: +/- 30 days of [...] Type Comment November 11, 2024 06:48 AM [facility] MAGNESIUM PLASMA Specimen Type: PLASMA Comment: K result may show a positive bias due to hemolysis. Specimen slightly hemolyzed. Ordering Provider: CONNIE KOCH Report Released Date/Time: November 06, 2024 07:13 AM Reporting Lab: [facility] [address] [facility] [address] Performing Lab: [facility] [address] [facility] [address] MAGNESIUM 1.9 mg/dL 1.6-2.6 November 11, 2024 06:48 AM [facility] RENAL PANEL PLASMA Specimen Type: PLASM A Comment: K result may show a positive bias due to hemolysis. Specimen slightly hemolyzed. Ordering Provider: CONNIE KOCH Report Released Date/Time: November 06, 2024 07:13 AM Reporting Lab: [address] [address] Performing Lab: [address] [address] CREATININE 0.89 mg/dL 0.7-1.3 UREA NITROGEN 16.9 mg/dL 9.0-25.0 GLUCOSE 99 mg/dL 72-99 SODIUM 136 meq/L 136-145 POTASSIUM 4.3 meq/L 3.5-5 CHLORIDE 104 meq/L 98-107 CARBON DIOXIDE 25 meq/L 22-31 CALCIUM 8.8 mg/dL 8.4-10.4 PHOSPHOROUS 3.6 mg/dL 2.3-4.7 ALBUMIN 3.5 g/dL 3.4-5 EGFR (CKD-EPI 2020) 86.1 >60 November 11, 2024 06:48 AM [facility] CBC BLOOD Specimen Type: BLOOD No comment entered. Ordering Provider: CONNIE KOCH Report Released Date/Time: November 06, 2024 07:13 AM Reporting Lab: [address] [address] Performing Lab: [address] [address] WBC 9.2 10*3/uL 3.6-11.2 RBC 5.85 10*6/uL [...] 0.00-0. 20 November 10, 2024 06:51 AM [facility] MAGNESIUM PLASMA Specimen Type: PLASM A Comment: No hemolysis noted. Ordering Provider: CONNIE KOCH Report Released Date/Time: November 06, 2024 07:13 AM Reporting Lab: [address] [address] Performing Lab: [address] [address] MAGNESIUM 2.1 mg/dL 1.6-2.6 November 10, 2024 06:51 AM [facility] RENAL PANEL PLASMA Specimen Type: PLASM A Comment: No hemolysis noted. Ordering Provider: CONNIE KOCH Report Released Date/Time: November 06, 2024 07:13 AM Reporting Lab: [address] [address] Performing Lab: [address] [address] CREATININE 0.86 mg/dL 0.7-1.3 UREA NITROGEN 18.8 mg/dL 9.0-25.0 GLUCOSE 100 mg/dL H 72-99 SODIUM 137 meq/L 136-145 POTASSIUM 4.2 meq/L 3.5-5 CHLORIDE 104 meq/L 98-107 CARBON DIOXIDE 26 meq/L 22-31 CALCIUM 9.2 mg/dL 8.4-10.4 PHOSPHOROUS 3.6 mg/dL 2.3-4.7 ALBUMIN 3.8 g/dL 3.4-5 EGFR (CKD-EPI 2020) 87.0 >60 November 10, 2024 06:51 AM [facility] CBC BLOOD Specimen Type: BLOOD No comment entered. Ordering Provider: CONNIE KOCH Report Released Date/Time: November 06, 2024 07:13 AM Reporting Lab: [facility] [address] [facility] [address] Performing Lab: [facility] [address] [place] [address] WBC 9.0 10*3/uL 3.6-11.2 RBC 5.85 10*6/uL [...] 0.00-0. 20 November 09, 2024 08:22 AM [facility] MAGNESIUM PLASMA Specimen Type: PLASM A Comment: No hemolysis noted. Ordering Provider: CONNIE KOCH Report Released Date/Time: November 06, 2024 07:13 AM Reporting Lab: [place] [id number] [facility] [address] Performing Lab: [address] [address] MAGNESIUM 2.1 mg/dL 1.6-2.6 November 09, 2024 08:22 AM [facility] RENAL PANEL PLASMA Specimen Type: PLASM A Comment: No hemolysis noted. Ordering Provider: CONNIE KOCH Report Released Date/Time: November 06, 2024 07:13 AM Reporting Lab: [address] [address] Performing Lab: [address] [address] CREATININE 0.86 mg/dL 0.7-1.3 UREA NITROGEN 18.6 mg/dL 9.0-25.0 GLUCOSE 87 mg/dL 72-99 SODIUM 138 meq/L 136-145 POTASSIUM 4.5 meq/L 3.5-5 CHLORIDE 104 meq/L 98-107 CARBON DIOXIDE 27 meq/L 22-31 CALCIUM 9.0 mg/dL 8.4-10.4 PHOSPHOROUS 3.2 mg/dL 2.3-4.7 ALBUMIN 3.5 g/dL 3.4-5 EGFR (CKD-EPI 2020) 87.0 >60 November 09, 2024 08:22 AM [facility] CBC BLOOD Specimen Type: BLOOD Comment: prev diff 11/07/24. Ordering Provider: CONNIE KOHC Report Released Date/Time: November 06, 2024 07:13 AM Reporting Lab: [address] [address] Performing Lab: [address] [address] WBC 10.7 10*3/uL 3.6-11.2 RBC 5.84 10*6/uL [...] 0.00-0. 20 November 08, 2024 09:04 AM [facility] MAGNESIUM PLASMA Specimen Type: PLASM A Comment: No hemolysis noted. Ordering Provider: CONNIE KOCH Report Released Date/Time: November 06, 2024 07:13 AM Reporting Lab: [address] [address] Performing Lab: [address] [address] MAGNESIUM 1.9 mg/dL 1.6-2.6 November 08, 2024 09:04 AM [facility] RENAL PANEL PLASMA Specimen Type: PLAS MA Comment: No hemolysis noted. Ordering Provider: CONNIE KOCH Report Released Date/Time: November 06, 2024 07:13 AM Reporting Lab: [address] [address] Performing Lab: [address] [address] CREATININE 0.86 mg/dL 0.7-1.3 UREA NITROGEN 17.8 mg/dL 9.0-25.0 GLUCOSE 141 mg/dL H 72-99 SODIUM 137 meq/L 136-145 POTASSIUM 4.4 meq/L 3.5-5 CHLORIDE 103 meq/L 98-107 CARBON DIOXIDE 26 meq/L 22-31 CALCIUM 8.9 mg/dL 8.4-10.4 PHOSPHOROUS 3.2 mg/dL 2.3-4.7 ALBUMIN 3.6 g/dL 3.4-5 EGFR (CKD-EPI 2020) 87.0 >60 November 08, 2024 09:04 AM [facility] CBC BLOOD Specimen Type: BLOOD No comment entered. Ordering Provider: CONNIE KOCH Report Released Date/Time: November 06, 2024 07:13 AM Reporting Lab: [address] [place] [address] Performing Lab: [place] [address] [facility] [address] WBC 10.1 10*3/uL 3.6-11.2 RBC 5.77 10*6/uL [...] 0.00-0. 20 November 07, 2024 06:52 AM [facility] MAGNESIUM PLASMA Specimen Type: PLASM A Comment: No hemolysis noted. Ordering Provider: CONNIE KOCH Report Released Date/Time: November 06, 2024 07:13 AM Reporting Lab: [place] [address] [facility] [address] Performing Lab: [place] [address] [facility] [address] MAGNESIUM 2.0 mg/dL 1.6-2.6 November 07, 2024 06:52 AM [facility] RENAL PANEL PLASMA Specimen Type: PLASM A Comment: No hemolysis noted. Ordering Provider: CONNIE KOCH Report Released Date/Time: November 06, 2024 07:13 AM Reporting Lab: [address] [address] Performing Lab: [address] [address] CREATININE 1.00 mg/dL 0.7-1.3 UREA NITROGEN 19.3 mg/dL 9.0-25.0 GLUCOSE 123 mg/dL H 72-99 SODIUM 138 meq/L 136-145 POTASSIUM 4.7 meq/L 3.5-5 CHLORIDE 102 meq/L 98-107 CARBON DIOXIDE 27 meq/L 22-31 CALCIUM 8.9 mg/dL 8.4-10.4 PHOSPHOROUS 4.1 mg/dL 2.3-4.7 ALBUMIN 3.8 g/dL 3.4-5 EGFR (CKD-EPI 2020) 75.6 >60 November 07, 2024 06:52 AM [facility] CBC BLOOD Specimen Type: BLOOD No comment entered. Ordering Provider: CONNIE KOCH Report Released Date/Time: November 06, 2024 07:13 AM Reporting Lab: [address] [address] Performing Lab: [address] [address] WBC 12.6 10*3/uL H 3.6-11.2 RBC 5.50 [...] H 2.10-8.00 November 07, 2024 06:35 AM [facility] DIGOXIN PLASMA Specimen Type: PLASM A No comment entered. Ordering Provider: CONNIE KOCH Report Released Date/Time: November 07, 2024 08:41 AM Reporting Lab: [address] [address] Performing Lab: [address] [address] DIGOXIN <0.15 ng/mL L 0.8-2 November 06, 2024 07:05 AM [facility] MAGNESIUM PLASMA Specimen Type: PLASM A Comment: No hemolysis noted. Ordering Provider: MICH RAMIREZ Report Released Date/Time: Nov 05, 2024 11:04 PM Reporting Lab: [address] [address] Performing Lab: [address] [address] MAGNESIUM 1.9 mg/dL 1.6-2.6 November 06, 2024 07:05 AM [facility] RENAL PANEL PLASMA Specimen Type: PLASM A Comment: No hemolysis noted. Ordering Provider: MICH RAMIREZ Report Released Date/Time: Nov 05, 2024 11:04 PM Reporting Lab: [address] [address] Performing Lab: [address] [address] CREATININE 0.88 mg/dL 0.7-1.3 UREA NITROGEN 18.0 mg/dL 9.0-25.0 GLUCOSE 101 mg/dL H 72-99 SODIUM 136 meq/L 136-145 POTASSIUM 4.1 meq/L 3.5-5 CHLORIDE 99 meq/L 98-107 CARBON DIOXIDE 30 meq/L 22-31 CALCIUM 8.8 mg/dL 8.4-10.4 PHOSPHOROUS 4.1 mg/dL 2.3-4.7 ALBUMIN 3.1 g/dL L 3.4-5 EGFR (CKD-EPI 2020) 86.4 >60 November 06, 2024 07:05 AM [facility] CBC BLOOD Specimen Type: BLOOD No comment entered. Ordering Provider: MICH RAMIREZ Report Released Date/Time: Nov 05, 2024 11:04 PM Reporting Lab: [address] [address] Performing Lab: [place] [id number] [facility] [address] WBC 10.3 10*3/uL 3.6-11.2 RBC 5.27 10*6/uL [...] 0.00-0. 20 November 06, 2024 03:00 AM [facility] MRSA SURVL NARES DNA NARES Specimen [...] Nov 05, 2024 06:43 PM Reporting Lab: [facility] [address] [place] [address] Performing Lab: [facility] [address] [place] [address] MRSA SURVL NARES DNA Negative Negative Nov 05, 2024 08:34 PM [facility] MAGNESIUM PLASMA Specimen Type: PLASM A Comment: No hemolysis noted. Ordering Provider: IRON TAFOYA Report Released Date/Time: Nov 05, 2024 06:43 PM Reporting Lab: [place] [phone] Performing Lab: [address] [address] MAGNESIUM 1.9 mg/dL 1.6-2.6 Nov 05, 2024 08:34 PM [facility] PHOSPHOROUS PLASMA Specimen Type: PLASM A Comment: No hemolysis noted. Ordering Provider: IRON TAFOYA Report Released Date/Time: Nov 05, 2024 06:43 PM Reporting Lab: [facility] [address] [place] [address] Performing Lab: [address] [address] PHOSPHOROUS 3.7 mg/dL 2.3-4.7 Nov 05, 2024 08:34 PM [facility] CBC BLOOD Specimen Type: BLOOD No comment entered. Ordering Provider: IRON TAFOYA Report Released Date/Time: Nov 05, 2024 06:43 PM Reporting Lab: [address] [address] Performing Lab: [address] [address] WBC 11.1 10*3/uL 3.6-11.2 RBC 5.73 10*6/uL [...] 0.00-0. 20 Nov 05, 2024 08:34 PM [facility] COMPREHENSIVE METABOLIC PANEL PLASMA Specimen Type: PLASMA Comment: No hemolysis noted. Ordering Provider: IRON TAFOYA Report Released Date/Time: Nov 05, 2024 06:43 PM Reporting Lab: [address] [address] Performing Lab: [address] [address] CREATININE 1.02 mg/dL 0.7-1.3 UREA NITROGEN 19.8 [...] 5-34 ALT/SGPT 23 U/L 8-40 EGFR (CKD-EPI 2021) 73.8 >60 Vital Signs: All taken on the encounter date This section contains inpatient and outpatient Vital Signs collected on the date of the Encounter. Date/Time Temperature Pulse Blood Pressure Respiratory Rate SP02 Pain Height Weight Body Mass Index Source November 07, 2024 11:16 PM 0 [facility] N November 07, 2024 09:00 PM 109 [facility] N November 07, 2024 08:40 PM 98.1 97 144/99 19 100 [facility] November 07, 2024 03:03 PM 98.6 106 111/78 20 97 [facility] November 07, 2024 12:26 PM 98.9 79 110/65 20 97 [facility] Social History: Smoking Status (Most [...] 02:55 PM ORYX ADMIT TOBACCO SCREEN REFUSED [facility] Advance Directives: All historical and current Section Date Range: From patient's date of to the date document was created. This section includes ALL of a patient's completed or amended [place] Advance and Rescinded Directives. The entries below indicate that a directive exists for the patient, but an actual copy is not included with this document. The data comes from all [place] facilities. Date Advance Directives Provider Source Nov 03, 2022 ADVANCE DIRECTIVE DISCUSSION GIACOMO RAMIREZ [facility] Oct 30, 2022 ADVANCE DIRECTIVE ALEKSANDAR GRANADO Encounter Notes: All associated encounter notes This section contains the clinical notes associated to the Encounter. Date/Time Encounter Note(s) Provider Source November 07, 2024 07:30 AM PASTORAL CARE NOTE : LOCAL TITLE: PASTORAL CARE NOTE STANDARD TITLE: PASTORAL CARE NOTE DATE OF NOTE: NOVEMBER 07, 2024@07:30 ENTRY DATE: NOVEMBER 07, 2024@08:20:02 AUTHOR: MICHAEL OBANDO COSIGNER: SIMBA MCCARTHY URGENCY: STATUS: COMPLETED Pastoral Visit: Routine Dynamics Ax Developer met with: Location: Patient Room Muslim Preference: Other:None INTERVENTION Offered / accepted: ministry of presence, supportive listening had issues hearing Dynamics Ax Developer, so conversation needed to be repeated several times. stated he belonged to no baptism. stated that he had served in the [employer] aboard the [employer]. said he had enjoyed his time in the [employer]. [place] had no requests for spiritual support. FOLLOW-UP Dynamics Ax Developer will be available to as needed throughout this admission. /rody/ MICHAEL OBANDO [employer] C[employer] Signed: 11/07/2024 08:29 /rody/ SIMBA MCCARTHY [facility] Cosigned: 11/10/2024 14:24 MICHAEL OBANDO [facility]
--- OUTSIDE RECORDS SUMMARY | 2025-02-12 21:24 | XMS_ITS ---
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 BABIN DIANE MARIE [facility] November 12, 2024 03:35 PM PHYSICIAN EDUCATIO N DISCHARGE NOTE: LOCAL TITLE: DISCHARGE INSTRUCTIONS STL STANDARD TITLE: PHYSICIAN EDUCATION DISCHARGE NOTE DATE OF NOTE: NOVEMBER 12, 2024@15:35 ENTRY DATE: NOVEMBER 12, 2024@15:35:43 AUTHOR: BREE GARCIA EXP COSIGNER: LONDON MURPHY URGENCY: STATUS: COMPLETED MEDICATIONS THAT WERE CHANGED: None MEDICATIONS THAT WERE STOPPED (AND REASON FOR STOPPING): Metoprolol Tartrate stopped. Started new similar Medication called Metoprolol Succinate. NEW MEDICATIONS WITH INSTRUCTIONS: Metoprolol Succinate - Take 100 mg twice a day. Apixaban - Take 5 mg (one tablet) twice a day. DATE OF ADMISSION: Oct 18:42 DATE OF DISCHARGE: November REASON(S) FOR BEING IN THE HOSPITAL: Mr. Vann, you were admitted initially to the hospital for confusion and found to have a urinary tract infection which has now been treated. You had some urine rentention which has also now resolved. YOUR OUTPATIENT CARE TEAM: Team Information -- No team assignment information found -- FUTURE APPOINTMENTS: No future appointments ADDITIONAL FOLLOW UP CARE: Please arrange a follow up with a primary care doctor as soon as you are able. YOUR KNOWN ALLERGIES: SUDAFED, PENICILLIN, ANTIHISTAMINE NASAL DECONGEST, DARVOCET-N CALL YOUR DOCTOR IF YOU HAVE ANY OF THESE PROBLEMS: Urinary (kidney and bladder problems): Chills or fever of 101 or greater, Painful urination, Inability to urinate or urinating more than usual, Blood in urine PHYSICAL ACTIVITY: Activity as tolerated Other (specify below): You are at high risk for falls, please mobilize with assistance and supervision. DIET: Oral Nutrition/Diet Instructions Regular Diet: A healthy eating plan will maintain or promote good health. -Consume a diet rich in fruits, vegetables, whole grains, and healthy oils -Choose lean protein sources such as fish, poultry, beans/legumes, and non-fat or low-fat dairy sources. -Limit saturated fat such as fatty cuts of beef, kulkarni, pork, chicken with skin, whole milk, cream, butter -Minimize consumption of sugary drinks, desserts -Limit deep-fried foods and fast foods -Limit the use of added table salts, salt-type seasoning, and processed foods -Speak to a Registered Dietitian about other healthy eating tips and meal planning DEVICES AT DISCHARGE: Not Applicable: The patient should be discharged with no urinary catheter or intravenous access TOBACCO & ALCOHOL: Discharge tobacco cessation medication(s) not indicated due to: Other reason(s) documented by physician/COUNSELOR EDUCATION PROFESSOR/PA or pharmacist Reason(s): Not indicated Discharge medications for alcohol/drug disorder not offered Reason: Not indicated DISCHARGE INSTRUCTIONAL MATERIALS: Congestive Heart Failure 1. FlyData (Heart Failure) handout has been discussed and reviewed with patient and/or caregiver, and has received a copy. Discharge Instructions for Heart Failure Instructions and Handout Include: - Decreasing salt from the diet - The benefits from simple activities and exercise - Breaking the smoking habit - Importance of rest - Taking medications as prescribed and not doubling dose - Weighing yourself daily at the same time Notify your provider if you: - Gain weight greater than 3 pounds in one day or more than 5 pounds in a week. - Have difficulty breathing - Have increased swelling of feet, ankles or legs - Feel more tired than usual 2. Instructed that chest pain is serious and life threatening; - Immediately call 911 or present to the hospital Emergency Department nearest you. CONDITION OF PATIENT AT DISCHARGE: Stable DISCHARGE DESTINATION: Home with Son and Daughter in Law NOTE: If you are having feelings of Depression or Emotional Distress, or feel you just need to talk with someone, please call [phone] ([phone]), Dine perfect - Press 1. COPY OF DISCHARGE INSTRUCTIONS: The patient/family understands and will be provided a copy of these discharge instructions. DISCHARGE MEDICATION LIST: Active Outpatient Medications (including Supplies): Active Outpatient Medications Status 1) APIXABAN 5MG TAB TAKE ONE TABLET BY MOUTH TWICE A DAY ACTIVE Indication: FOR ANTICOAGULATION Pending Outpatient Medications Status 1) DONEPEZIL HCL 10MG TAB TAKE ONE-HALF TABLET BY MOUTH AT PENDING BEDTIME (JUST BEFORE BEDTIME) Indication: FOR ALZHEIMER DISEASE 2) MELATONIN 1MG CAP/TAB TAKE ONE CAP/TAB BY MOUTH AT BEDTIME PENDING NEEDED Indication: FOR SLEEP 3) MEMANTINE HCL 5MG TAB TAKE ONE TABLET BY MOUTH ONCE A DAY PENDING Indication: FOR ALZHEIMER DISEASE 4) METOPROLOL SUCCINATE 200MG SA TAB TAKE ONE-HALF TABLET BY PENDING MOUTH TWICE A DAY SWALLOW WHOLE, DO NOT CRUSH OR CHEW (TABLETS MAY BE CUT IN HALF). Indication: AFIB 5) QUETIAPINE FUMARATE 100MG TAB TAKE ONE-HALF TABLET BY MOUTH PENDING TWICE A DAY Indication: AGITATION 6) SACUBITRIL 24MG/VALSARTAN 26MG TAB TAKE 1 TABLET BY MOUTH PENDING TWICE A DAY Indication: FOR HEART FAILURE 7) SENNOSIDES 8.6MG TAB TAKE TWO TABLETS BY MOUTH ONCE A DAY PENDING Indication: FOR CONSTIPATION 8) TAMSULOSIN HCL 0.4MG CAP TAKE ONE CAPSULE BY MOUTH EVERY PENDING EVENING APPROXIMATELY 30 MINUTES AFTER THE SAME MEAL EACH DAY Indication: FOR BENIGN PROSTATIC HYPERPLASIA 9 Total Medications Active Remote Medications: Active Medications from Remote Data NOTE: Remote meds display is limited to those items matched to National Drug File at the originating site. LOSARTAN 25MG TAB Sig: TAKE ONE TABLET BY MOUTH EVERY EVENING Quantity: 30 Days Supply: 30 Rx Expiration Date: 05/07/25 Last filled 05/06/24 at [facility] (Active) DONEPEZIL HCL 10MG TAB Sig: TAKE ONE TABLET BY MOUTH AT BEDTIME Quantity: 30 Days Supply: 30 Rx Expiration Date: 05/07/25 Last filled 05/06/24 at [facility] (Active) OXYBUTYNIN CL 10MG TAB,SA Sig: TAKE ONE TABLET BY MOUTH EVERY DAY FOR OVERACTIVE BLADDER Quantity: 90 Days Supply: 90 Rx Expiration Date: 06/03/25 Last filled 07/01/24 at [facility] (Active) METOPROLOL TARTRATE 50MG TAB Sig: TAKE ONE TABLET BY MOUTH TWICE A DAY WITH MEALS FOR BLOOD PRESSURE Quantity: 60 Days Supply: 30 Rx Expiration Date: 06/03/25 Last filled 06/02/24 at [facility] (Active) TRAZODONE HCL 50MG TAB Sig: TAKE ONE TABLET BY MOUTH AT BEDTIME Quantity: 30 Days Supply: 30 Rx Expiration Date: 06/03/25 Last filled 06/02/24 at [facility] (Active) AZELASTINE HCL 137MCG/SPRAY INHL,NASAL,30ML Sig: SPRAY 1 PUFF IN EACH NOSTRIL TWICE A DAY Quantity: 1 Days Supply: 30 Rx Expiration Date: 06/03/25 Last filled 06/02/24 at [facility] (Active) MUPIROCIN 2% OINT,TOP Sig: APPLY SMALL AMOUNT TOPICALLY TWICE A DAY FOR SKIN CONDITION Quantity: 22 Days Supply: 30 Rx Expiration Date: 02/04/25 Last filled 02/12/24 at [facility] (Active) /rody/ BREE GARCIA DIP DYER Signed: 11/12/2024 15:45 /rody/ LONDON MURPHY MD Staff Physician Cosigned: 11/13/2024 16:55 BREE GARCIA [facility] November 12, 2024 02:21 PM ADMINISTRATIVE NOT E: LOCAL TITLE: BENEFICIARY TRAVEL (BT) STANDARD TITLE: ADMINISTRATIVE NOTE DATE OF NOTE: NOVEMBER 12, 2024@14:21 ENTRY DATE: NOVEMBER 12, 2024@14:21:30 AUTHOR: BREE GARCIA EXP COSIGNER: LONDON MURPHY URGENCY: STATUS: COMPLETED BENEFICIARY TRAVEL SPECIAL MODE TRANSPORTATION: I have informed the that, requests with insufficient evidence of functional need, containing information that appears inconsistent with clinical evidence or appears intentionally exaggerated to obtain eligibility will be referred for further review or returned for additional information or clarification. Point of Contact's E-mail: Phone/Pager/Extension: [phone] MEDICAL JUSTIFICATION Marcus is not able to transfer into a private vehicle or medically appropriate common carrier, or requires additional assistance as outlined below. The clinical condition requiring the use of [place] Special Mode transportation to be safely transported are as follows: Severe deconditioning or functional limitation precluding private transportation with assistance Dementia/Confusion precluding private vehicle with assistance Other physical or mental limitation not listed above Describe: Fall risk, elopment risk This request is not for an inter-facility transfer BASIC LIFE SUPPORT (Stretcher; Accounting Bookkeeper On-Board): Other Details: Requires supervision Patient weight: 209 lb [94.80 kg] (11/12/2024 07:27) Comments: Date travel is to commence: November group marketing vp time (if needed): 1600 Estimated time frame will require transportation: One Time Additional Information: Transport to patient's son's house located at: [address] [place] [address]. Call [phone] to reach his family in case any issues arise while trying to reach their home. Frequency: One Way /jessica GARCIA DIP DYER Signed: 11/12/2024 14:25 /jessica MURPHY MD Staff Physician Cosigned: 11/12/2024 15:03 BREE GARCIA [facility] November 12, 2024 02:19 PM NURSING INPATIENT NOTE: LOCAL TITLE: VAAES NURSING FREQUENT DOCUMENTATION STANDARD TITLE: NURSING INPATIENT NOTE DATE OF NOTE: NOVEMBER 12, 2024@14:19 ENTRY DATE: NOVEMBER 12, 2024@14:19:25 AUTHOR: SARA ERAZO EXP COSIGNER: URGENCY: STATUS: COMPLETED Version 2.4 Charting in accordance with [place] APPROVED RINCON STANDARD (VAAES) ACUTE INPATIENT/REHABILITATION NURSING ADMISSION SCREENING, ASSESSMENT, AND STANDARDS OF CARE ORAL INTAKE (PERCENTAGE OF MEAL EATEN) Lunch: 76% - 100% /es/ KENYON ROSARIO SECURITY PUBLIC SAFETY OFFICER Signed: 11/12/2024 14:19 SARA ERAZO [facility] November 12, 2024 01:21 PM NURSING INPATIENT NOTE: LOCAL TITLE: VAAES NURSING FREQUENT DOCUMENTATION STANDARD TITLE: NURSING INPATIENT NOTE DATE OF NOTE: NOVEMBER 12, 2024@13:21 ENTRY DATE: NOVEMBER 12, 2024@14:35:18 AUTHOR: SARA ERAZO EXP COSIGNER: URGENCY: STATUS: COMPLETED Version 2.4 Charting in accordance with [place] APPROVED RINCON STANDARD (VAAES) ACUTE INPATIENT/REHABILITATION NURSING ADMISSION SCREENING, ASSESSMENT, AND STANDARDS OF CARE PROVIDER NOTIFICATION Provider Name: Estephanie Lozano RN Notification Reason: Other: Pt b/p reading was 147/94 /rody/ KENYON ROSARIO SECURITY PUBLIC SAFETY OFFICER Signed: 11/12/2024 14:36 Receipt Acknowledged By: * AWAITING SIGNATURE * ROMASARA GALLAGHER [facility] November 12, 2024 01:04 PM ADMINISTRATIVE NOT E: LOCAL TITLE: BENEFICIARY TRAVEL (BT) STANDARD TITLE: ADMINISTRATIVE NOTE DATE OF NOTE: NOVEMBER 12, 2024@13:04 ENTRY DATE: NOVEMBER 12, 2024@13:04:19 AUTHOR: BREE GARCIA EXP COSIGNER: LONDON MURPHY URGENCY: STATUS: COMPLETED BENEFICIARY TRAVEL SPECIAL MODE TRANSPORTATION: I have informed the that, requests with insufficient evidence of functional need, containing information that appears inconsistent with clinical evidence or appears intentionally exaggerated to obtain eligibility will be referred for further review or returned for additional information or clarification. Point of Contact's E-mail: Phone/Pager/Extension: MEDICAL JUSTIFICATION Marcus is not able to transfer into a private vehicle or medically appropriate common carrier, or requires additional assistance as outlined below. The clinical condition requiring the use of [place] Special Mode transportation to be safely transported are as follows: Dementia/Confusion precluding private vehicle with assistance Other physical or mental limitation not listed above Describe: Fall risk, dementia This request is not for an inter-facility transfer BASIC LIFE SUPPORT (Stretcher; Accounting Bookkeeper On-Board): Requires restraint during stretcher transport to prevent risk of harm to self or others: Specify below legal/medical hold status and/or behavioral health issue(s) that pose risk of harm to or others if Marcus is unrestrained in route. Patient requires supervision/sitter due to fall risk and elopment risk. Patient weight: 209 lb [94.80 kg] (11/12/2024 07:27) Comments: Date travel is to commence: November group marketing vp time (if needed): 1600 Estimated time frame will require transportation: One Time Additional Information: To home (patient's son's home) Frequency: One Way /rody/ BREE GARCIA DIP DYER Signed: 11/12/2024 13:08 /rody/ LONDON MURPHY MD Staff Physician Cosigned: 11/12/2024 15:03 BREE GARCIA [facility] November 12, 2024 12:32 PM ADMINISTRATIVE NOT E: LOCAL TITLE: ADMINISTRATIVE STL STANDARD TITLE: ADMINISTRATIVE NOTE DATE OF NOTE: NOVEMBER 12, 2024@12:32 ENTRY DATE: NOVEMBER 12, 2024@12:32:13 AUTHOR: JENNY LEON EXP COSIGNER: URGENCY: STATUS: COMPLETED HAVE CONTACTED MONIKA BUENROSTROFROM [facility] FOR [facility]CP REQUEST. /rody/ JENNY LEON ADVANCED ATHLETIC SCOUT Signed: 11/12/2024 12:36 Receipt Acknowledged By: 11/20/2024 07:14 /es/ MONIKA BUENROSTRO MEDICAL SUPPORT ASSISTANCE 11/12/2024 14:01 /rody/ Frank Hill MD Resident Physician JENNY LEON [facility] November 12, 2024 09:53 AM CARDIOLOGY NOTE: LOCAL TITLE: CARDIOLOGY TELEMETRY [facility] STANDARD TITLE: CARDIOLOGY NOTE DATE OF NOTE: NOVEMBER 12, 2024@09:53 ENTRY DATE: NOVEMBER 12, 2024@09:53:52 AUTHOR: MEG WRIGHT EXP COSIGNER: URGENCY: STATUS: COMPLETED Telemetry reviewed: Atrial Fibrillation, Atrial Flutter BILLING DEPARTMENT SUPERVISOR #: 40 RATE: 80s-120s SHIFT: 7-3 Shift COMMENT: /jessica WRIGHT Microbiology Professor-EKG Signed: 11/12/2024 09:54 MEG WRIGHT [facility] November 12, 2024 08:57 AM NURSING NOTE: LOCAL TITLE: MARILOUS SKIN INSPECTION/ASSESSMENT STANDARD TITLE: NURSING NOTE DATE OF NOTE: NOVEMBER 12, 2024@08:57 ENTRY DATE: NOVEMBER 12, 2024@08:58 AUTHOR: ESTEPHANIE LOZANO EXP COSIGNER: URGENCY: STATUS: COMPLETED Assessment Type: SKIN REINSPECTION/REASSESSMENT SKIN INSPECTION: Skin Color: Usual for ethnicity Skin Temperature: Warm Skin Moisture: Normal Skin Turgor: Elastic (normal/immediate) Mady Skin Assessment: The patient's Mady Scale Score is 19. The patient is considered not at risk for development of pressure ulcers/injuries. Sensory perception -- ability to respond meaningfully to pressure-related discomfort Slightly limited. Moisture -- degree to which skin is exposed to moisture Occasionally moist. Activity -- ability to change and control body position Walks occasionally. Mobility -- ability to change and control body position Slightly limited. Nutrition -- usual food intake patterns Excellent. Friction and shear No apparent problem. INTERVENTIONS: No change in previous interventions as listed below Pressure Ulcer-Education 11/06/2024 Educate Importance Of Changing Position Pressure Ulcer-Nutrition 11/06/2024 Encourage Eating And Assist With Meals Monitor Fluid/Food Intake Offer Liquids Q2H When Turning Offer Ordered Supplements Provide/Encourage Oral Care As Needed Tray Set Up And Assistance Pressure Ulcer-Remobilize 11/06/2024 Encourage Activity As Tolerated Vaaes Pressure Injury Interventions 11/12/2024 Vaaes Pressure Injury Int Not Needed RISK FACTORS THAT INCREASE RISK FOR DEVELOPING PRESSURE INJURIES: The patient/resident has the following: Age over 75 SKIN ALTERATIONS: Pressure Ulcer/Injury Documentation from the past year: No data available SKIN ALTERATIONS: Wound Documentation from the past year: No data available for: Skin Integrity - Wound Skin Integrity - Wound Second Skin Integrity - Wound Third Skin Integrity - Wound Fourth Skin Integrity - Wound Fifth Skin Integrity - Wound Additional SKIN INTEGRITY: Intact /es/ ESTEPHANIE LOZANO RN Registered Nurse Signed: 11/12/2024 09:00 ESTEPHANIE LOZANO [facility] November 12, 2024 08:55 AM NURSING INPATIENT NOTE: LOCAL TITLE: [facility] NURSING FREQUENT DOCUMENTATION STANDARD TITLE: NURSING INPATIENT NOTE DATE OF NOTE: NOVEMBER 12, 2024@08:55 ENTRY DATE: NOVEMBER 12, 2024@08:55:32 AUTHOR: SARA ERAZO EXP COSIGNER: URGENCY: STATUS: COMPLETED Version 2.4 Charting in accordance with [place] APPROVED RINCON STANDARD (WIAES) ACUTE INPATIENT/REHABILITATION NURSING ADMISSION SCREENING, ASSESSMENT, AND STANDARDS OF CARE ACTIVITIES OF DAILY LIVING Hygiene ADLs: Oral Care: Non-ventilator patient: Swabbing performed-Patient edentulous (lacking teeth) The Marcus was educated that poor oral hygiene increases the risk of hospital acquired pneumonia and dental problems like gingivitis and tooth decay. was educated using their preferred method and verbalized understanding. /KENYON Reese SECURITY PUBLIC SAFETY OFFICER Signed: 11/12/2024 08:56 SARA ERAZO [facility] November 12, 2024 08:48 AM NURSING INPATIENT NOTE: LOCAL TITLE: [facility] NURSING FREQUENT DOCUMENTATION STANDARD TITLE: NURSING INPATIENT NOTE DATE OF NOTE: NOVEMBER 12, 2024@08:48 ENTRY DATE: NOVEMBER 12, 2024@08:49:02 AUTHOR: SARA ERAZO EXP COSIGNER: URGENCY: STATUS: COMPLETED Version 2.4 Charting in accordance with [place] APPROVED RINCON STANDARD ([facility]) ACUTE INPATIENT/REHABILITATION NURSING ADMISSION SCREENING, ASSESSMENT, AND STANDARDS OF CARE ORAL INTAKE (PERCENTAGE OF MEAL EATEN) Breakfast: 76% - 100% /KENYON Reese SECURITY PUBLIC SAFETY OFFICER Signed: 11/12/2024 08:54 SARA ERAZO [facility] November 12, 2024 08:42 AM NURSING INPATIENT NOTE: LOCAL TITLE: [facility] ACUTE INPATIENT NSG SHIFT ASSESSMENT STANDARD TITLE: NURSING INPATIENT NOTE DATE OF NOTE: NOVEMBER 12, 2024@08:42 ENTRY DATE: NOVEMBER 12, 2024@08:42:48 AUTHOR: ESTEPHANIE LOZANO EXP COSIGNER: URGENCY: STATUS: COMPLETED Version 2.2 Charting in accordance with [place] APPROVED RINCON STANDARD (VAAES) ACUTE INPATIENT/REHABILITATION NURSING ADMISSION SCREENING, ASSESSMENT, AND STANDARDS OF CARE ASSESSMENT HANDOFF Bedside report and handoff completed Safety check completed PAIN ASSESSMENT Patient's acceptable pain goal: 0 No pain Are you currently experiencing pain? No: Pain Score: 0 DESOUZA FALL SCALE & TIPS PROGRAM Desouza Fall Scale: The Desouza Fall scale was performed and score was 75. This is indicative of high risk for falls. History of falling: immediate or within 3 months? Yes Secondary diagnosis: Yes Ambulatory aid: None/bedrest/nurse assist Intravenous therapy/Heparin lock: Yes Gait/Transferring: Normal/bed rest/immobile Mental Status: Overestimates/forgets limitations Fall Tailoring Interventions for Patient Safety (TIPS) Fall TIPS initiated with patient: Yes Interventions: Communicate recent fall or risk of harm Fall TIPS reviewed with patient: Yes Interventions: Communicate recent fall or risk of harm ENVIRONMENTAL SAFETY MANAGEMENT Implemented safety standards of care: -Harleigh to unit & environment -Adequate room lighting -Bed in low and locked position -Call light within reach -Personal items within reach -Traffic path in room free of clutter -Non-slip footwear -Upper/half length side rails up for bed mobility -Sensory aids within reach -Encourage patient to utilize sensory support Additional safety measures: Close to nurses station Increased frequency of rounding NEUROLOGICAL Neurological Orientation: Oriented x4 Level of Consciousness (AVPU): Alert = Appears aware of and responsive to the environment on their own. Follows commands, opens eyes spontaneously, and tracks objects. NEUROMUSCULAR/NEUROVASCULA R EXTREMITIES ASSESSMENT Strength: Gore Stitcher Bilateral: Strong Upper Extremity Bilateral: Full strength Lower Extremity Bilateral: Full strength Sensation: Upper Extremity Sensation Bilateral: Intact Lower Extremity Sensation Bilateral: Intact Temperature: Upper Extremity Temperature Bilateral: Warm Lower Extremity Temperature Bilateral: Warm CARDIOVASCULAR Heart Sounds: Normal (S1S2) Heart Rate/Rhythm (without awake overnight monitor): Regular Cardiac Rhythm Analysis: Normal Sinus Rhythm Telemetry Transmitter Pack #: 40 Capillary Refill: All 4 extremities, less than or equal to 3 seconds. Peripheral Pulses: All 4 extremities, 3+ normal. Edema: None RESPIRATORY Respirations: Unlabored Pattern: Regular Breath Sounds Auscultated: Anterior and posterior Left Upper Lobe: Clear Right Upper Lobe: Clear Right Middle Lobe: Clear Left Lower Lobe: Clear Right Lower Lobe: Clear GASTROINTESTINAL Passing flatus Elimination: Continent Abdominal Description: Rounded Palpation: Soft, Non-tender Bowel Sounds: RUQ: Active LUQ: Active RLQ: Active LLQ: Active GENITOURINARY Elimination: Continent ========= INTEGUMENTARY/SKIN/WOUND - (INCLUDING MADY) SEE NOTE: VAAES SKIN INPECTION/ASSESSMENT ========= ACTIVITIES OF DAILY LIVING Hygiene ADLs: Foot Care: Inspection Hand Hygiene: Performed post toileting Performed pre meals/snacks Oral Care: Non-ventilator patient: Patient teeth brushed: Independently The Marcus was educated that poor oral hygiene increases the risk of hospital acquired pneumonia and dental problems like gingivitis and tooth decay. Marcus was educated using their preferred method and verbalized understanding. Oral Mucositis Scale: Oral mucositis (clinical exam): Grade 1 = Erythema of the mucosa Oral mucositis (functional/symptomatic): Grade 1 = Minimal symptoms, normal diet MOBILITY Mobility Status: Independent: Able to stand and step without staff assistance Steady standing balance Gait: Unsteady /es/ ESTPEHANIE LOZANO RN Registered Nurse Signed: 11/12/2024 08:57 [facility] November 12, 2024 08:32 AM NURSING INPATIENT NOTE: LOCAL TITLE: [facility] NURSING FREQUENT DOCUMENTATION STANDARD TITLE: NURSING INPATIENT NOTE DATE OF NOTE: NOVEMBER 12, 2024@08:32 ENTRY DATE: NOVEMBER 12, 2024@08:32:20 AUTHOR: ESTEPHANIE LOZANO EXP COSIGNER: URGENCY: STATUS: COMPLETED Version 2.4 Charting in accordance with [facility] RINCON STANDARD (WIAES) ACUTE INPATIENT/REHABILITATION NURSING ADMISSION SCREENING, ASSESSMENT, AND STANDARDS OF CARE BLADDER SCAN Bladder distention: Present Time Scan performed: November Voided within 15 minutes prior to scan: No Initial bladder volume (ml): 186 Urine voided (ml): 150 Post-void bladder volume (ml): 0 Random bladder volume(ml): Patient was NOT catheterized Post-void residual catheterization amount (ml): /rody/ ESTEPHANIE LOZANO RN Registered Nurse Signed: 11/12/2024 08:41 ESTEPHANIE LOZANO [facility] November 12, 2024 06:57 AM CARDIOLOGY NOTE: LOCAL TITLE: CARDIOLOGY TELEMETRY STL STANDARD TITLE: CARDIOLOGY NOTE DATE OF NOTE: NOVEMBER 12, 2024@06:57 ENTRY DATE: NOVEMBER 12, 2024@06:57:22 AUTHOR: DONN LA EXP COSIGNER: URGENCY: STATUS: COMPLETED Telemetry reviewed: Atrial Fibrillation w/ rvr BILLING DEPARTMENT SUPERVISOR #: 40 RATE: 80s-150s SHIFT: 11-7 Shift COMMENT: ECG strips can be found in the back of the patient's hard copy chart. /jessica LA Medical Wood Pattern Maker ekg Signed: 11/12/2024 06:58 DONN LA [facility] November 12, 2024 04:52 AM NURSING INPATIENT NOTE: LOCAL TITLE: [facility] ACUTE INPATIENT NSG SHIFT ASSESSMENT STANDARD TITLE: NURSING INPATIENT NOTE DATE OF NOTE: NOVEMBER 12, 2024@04:52 ENTRY DATE: NOVEMBER 12, 2024@04:53:19 AUTHOR: ELLIS RAMOS COSIGNER: URGENCY: STATUS: COMPLETED Version 2.2 Charting in accordance with [place] APPROVED RINCON STANDARD (VAAES) ACUTE INPATIENT/REHABILITATION NURSING ADMISSION SCREENING, ASSESSMENT, AND STANDARDS OF CARE REASSESSMENT HANDOFF Bedside report and handoff completed PAIN ASSESSMENT Patient's acceptable pain goal: 0 No pain Are you currently experiencing pain? No: Pain Score: 0 DESOUZA FALL SCALE & TIPS PROGRAM Desouza Fall Scale: The Desouza Fall scale was performed and score was 60. This is indicative of high risk for falls. History of falling: immediate or within 3 months? Yes Secondary diagnosis: Yes Ambulatory aid: None/bedrest/nurse assist Intravenous therapy/Heparin lock: Yes Gait/Transferring: Normal/bed rest/immobile Mental Status: Oriented to own ability/knows own limitations Fall Tailoring Interventions for Patient Safety (TIPS) Fall TIPS initiated with patient: Yes Interventions: Communicate recent fall or risk of harm Fall TIPS reviewed with patient: Yes Interventions: Communicate recent fall or risk of harm ENVIRONMENTAL SAFETY MANAGEMENT Implemented safety standards of care: -Harleigh to unit & environment -Adequate room lighting -Bed in low and locked position -Call light within reach -Personal items within reach -Traffic path in room free of clutter -Non-slip footwear -Upper/half length side rails up for bed mobility -Sensory aids within reach -Encourage patient to utilize sensory support NEUROLOGICAL Neurological Orientation: Oriented x4 Level of Consciousness (AVPU): Alert = Appears aware of and responsive to the environment on their own. Follows commands, opens eyes spontaneously, and tracks objects. Affect/behavior: Cooperative Calm Evans Agitation Sedation Scale (RASS): 0 Alert and calm NEUROMUSCULAR/NEUROVASCULA R EXTREMITIES ASSESSMENT Strength: Gore Stitcher Bilateral: Strong Upper Extremity Bilateral: Full strength Lower Extremity Bilateral: Full strength Sensation: Upper Extremity Sensation Bilateral: Intact Lower Extremity Sensation Bilateral: Intact Temperature: Upper Extremity Temperature Bilateral: Warm Lower Extremity Temperature Bilateral: Warm CARDIOVASCULAR Heart Sounds: Normal (S1S2) Cardiac Rhythm Analysis: Normal Sinus Rhythm Telemetry Transmitter Pack #: 40 Capillary Refill: All 4 extremities, less than or equal to 3 seconds. Edema: None RESPIRATORY Respirations: Unlabored Breath Sounds Auscultated: Anterior and posterior Left Upper Lobe: Clear Right Upper Lobe: Clear Right Middle Lobe: Clear Left Lower Lobe: Clear Right Lower Lobe: Clear GASTROINTESTINAL Bowel movement reported by patient-unwitnessed Elimination: Continent Abdominal Description: Rounded Palpation: Soft, Non-tender Bowel Sounds: RUQ: Active LUQ: Active RLQ: Active LLQ: Active GENITOURINARY Elimination: Continent ========= INTEGUMENTARY/SKIN/WOUND - (INCLUDING MADY) SEE NOTE: VAAES SKIN INPECTION/ASSESSMENT ========= /jessica RAMOS RN REGISTERED NURSE Signed: 11/12/2024 04:58 ELLIS RAMOS [facility] November 12, 2024 12:56 AM NURSING INPATIENT NOTE: LOCAL TITLE: [facility] NURSING FREQUENT DOCUMENTATION STANDARD TITLE: NURSING INPATIENT NOTE DATE OF NOTE: NOVEMBER 12, 2024@00:56 ENTRY DATE: NOVEMBER 12, 2024@00:57:07 AUTHOR: ELLIS RAMOS EXP COSIGNER: URGENCY: STATUS: COMPLETED Version 2.4 Charting in accordance with [facility] RINCON STANDARD ([facility]) ACUTE INPATIENT/REHABILITATION NURSING ADMISSION SCREENING, ASSESSMENT, AND STANDARDS OF CARE NATIONAL EARLY WARNING SCORE (NEWS) The following vital measurements were used to complete the NEWS. Measurement DT TEMP PULSE RESP BP POx F(C) (L/MIN)(%) 11/12/2024 00:10 97(36.1) 83 20 134/94 97 The NEWS total is 0. 1. Temperature (C/F): Score = 0 36.1 - 38.0 C (96.9 - 100.4 F) 2. Pulse: Score = 0 51-90 3. Respirations: Score = 0 12-20 4. Blood Pressure (Only Systolic BP, mmHg): Score = 0 111-219 5. Pulse Oximetry: Score = 0 96% or greater 6. Supplemental oxygen in use: Score = 0 No 7. AVPU: Score = 0 Alert /rody/ ELLIS RAMOS RN REGISTERED NURSE Signed: 11/12/2024 00:57 ELLIS RAMOS [facility] November 12, 2024 12:51 AM NURSING INPATIENT NOTE: LOCAL TITLE: [facility] NURSING FREQUENT DOCUMENTATION STANDARD TITLE: NURSING INPATIENT NOTE DATE OF NOTE: NOVEMBER 12, 2024@00:51 ENTRY DATE: NOVEMBER 12, 2024@00:51:55 AUTHOR: JUANI MOLINA COSIGNER: URGENCY: STATUS: COMPLETED Version 2.4 Charting in accordance with [place] APPROVED RINCON STANDARD (WIAES) ACUTE INPATIENT/REHABILITATION NURSING ADMISSION SCREENING, ASSESSMENT, AND STANDARDS OF CARE ACTIVITIES OF DAILY LIVING Hygiene ADLs: Dressing: Upper Body: Independent Lower Body: Independent Eating: Independent Foot Care: Inspection Hand Hygiene: Performed post toileting Performed pre meals/snacks Oral Care: Non-ventilator patient: Patient teeth brushed: Independently The was educated that poor oral hygiene increases the risk of hospital acquired pneumonia and dental problems like gingivitis and tooth decay. Marcus was educated using their preferred method and verbalized understanding. Pericare: Soap and water Independent Personal Care: Bath Independent Toileting: Independent ACTIVITY/MOBILIZATION Mobility Status: Independent: Able to stand and step without staff assistance Minimum assist: Gait: Steady [facility] - Highest Level of Mobility achieved this shift: Pain DVPRS Scale Location: [facility] Pain Rating Scale (DVPRS): Pain Score: 1 Patient's acceptable pain goal: Pain Alleviating Interventions: /rody/ JUANI MOLINA CNA CERTIFIED NURSE SUPERVISOR LOADING Signed: 11/12/2024 00:57 JUANI MOLINA [facility] November 12, 2024 12:30 AM NURSING NOTE: LOCAL TITLE: [facility] SKIN INSPECTION/ASSESSMENT STANDARD TITLE: NURSING NOTE DATE OF NOTE: NOVEMBER 12, 2024@00:30 ENTRY DATE: NOVEMBER 12, 2024@00:30:31 AUTHOR: ELLIS RAMOSIGNER: URGENCY: STATUS: COMPLETED Assessment Type: INITIAL SKIN INSPECTION/ASSESSMENT SKIN INSPECTION: Skin Color: Usual for ethnicity Skin Temperature: Warm Skin Moisture: Normal Skin Turgor: Elastic (normal/immediate) Mady Skin Assessment: The patient's Mady Scale Score is 23. The patient is considered not at risk for development of pressure ulcers/injuries. Sensory perception -- ability to respond meaningfully to pressure-related discomfort No impairment. Moisture -- degree to which skin is exposed to moisture Rarely moist. Activity -- ability to change and control body position Walks frequently. Mobility -- ability to change and control body position No limitation. Nutrition -- usual food intake patterns Excellent. Friction and shear No apparent problem. INTERVENTIONS: The pressure injury interventions were not needed - patient/resident is not at risk. RISK FACTORS THAT INCREASE RISK FOR DEVELOPING PRESSURE INJURIES: The patient/resident has the following: Age over 75 Potential compromised nutritional status SKIN ALTERATIONS: Pressure Ulcer/Injury Documentation from the past year: No data available SKIN ALTERATIONS: Wound Documentation from the past year: No data available for: Skin Integrity - Wound Skin Integrity - Wound Second Skin Integrity - Wound Third Skin Integrity - Wound Fourth Skin Integrity - Wound Fifth Skin Integrity - Wound Additional SKIN INTEGRITY: Intact /es/ ELLIS RAMOS RN REGISTERED NURSE Signed: 11/12/2024 00:31 ELLIS RAMOS [facility] November 11, 2024 10:40 PM NURSING INPATIENT NOTE: LOCAL TITLE: [facility] ACUTE INPATIENT NSG SHIFT ASSESSMENT STANDARD TITLE: NURSING INPATIENT NOTE DATE OF NOTE: NOVEMBER 11, 2024@22:40 ENTRY DATE: NOVEMBER 12, 2024@00:24:04 AUTHOR: ELLIS RAMOS EXP COSIGNER: URGENCY: STATUS: COMPLETED Version 2.2 Charting in accordance with [facility] RINCON STANDARD ([facility]) ACUTE INPATIENT/REHABILITATION NURSING ADMISSION SCREENING, ASSESSMENT, AND STANDARDS OF CARE ASSESSMENT HANDOFF Bedside report and handoff completed Safety check completed PAIN ASSESSMENT Patient's acceptable pain goal: 0 No pain Are you currently experiencing pain? No: Pain Score: 0 DESOUZA FALL SCALE & TIPS PROGRAM Desouza Fall Scale: The Desouza Fall scale was performed and score was 60. This is indicative of high risk for falls. History of falling: immediate or within 3 months? Yes Secondary diagnosis: Yes Ambulatory aid: None/bedrest/nurse assist Intravenous therapy/Heparin lock: Yes Gait/Transferring: Normal/bed rest/immobile Mental Status: Oriented to own ability/knows own limitations Fall Tailoring Interventions for Patient Safety (TIPS) Fall TIPS initiated with patient: Yes Interventions: Communicate recent fall or risk of harm Fall TIPS reviewed with patient: Yes Interventions: Communicate recent fall or risk of harm ENVIRONMENTAL SAFETY MANAGEMENT Implemented safety standards of care: -Harleigh to unit & environment -Adequate room lighting -Bed in low and locked position -Call light within reach -Personal items within reach -Traffic path in room free of clutter -Non-slip footwear -Upper/half length side rails up for bed mobility -Sensory aids within reach -Encourage patient to utilize sensory support NEUROLOGICAL Neurological Orientation: Oriented x4 Level of Consciousness (AVPU): Alert = Appears aware of and responsive to the environment on their own. Follows commands, opens eyes spontaneously, and tracks objects. Affect/behavior: Cooperative Calm Evans Agitation Sedation Scale (RASS): 0 Alert and calm ========= ASPIRATION RISK ASSESSMENT AND SWALLOW SCREEN ========= Aspiration Risk(s): Screening complete. No aspiration risk identified. Bedside Swallow Screen not indicated. NEUROMUSCULAR/NEUROVASCULA R EXTREMITIES ASSESSMENT Strength: Gore Stitcher Bilateral: Strong Upper Extremity Bilateral: Full strength Lower Extremity Bilateral: Full strength Sensation: Upper Extremity Sensation Bilateral: Intact Lower Extremity Sensation Bilateral: CARDIOVASCULAR Heart Sounds: Normal (S1S2) Cardiac Rhythm Analysis: Normal Sinus Rhythm Telemetry Transmitter Pack #: 40 Capillary Refill: All 4 extremities, less than or equal to 3 seconds. Peripheral Pulses: All 4 extremities, 3+ normal. Edema: None RESPIRATORY Respirations: Unlabored Pattern: Regular Breath Sounds Auscultated: Anterior and posterior Left Upper Lobe: Clear Right Upper Lobe: Clear Right Middle Lobe: Clear Left Lower Lobe: Clear Right Lower Lobe: Clear GASTROINTESTINAL Last bowel movement: 11/10/2024 Elimination: Continent Abdominal Description: Flat Palpation: Soft, Non-tender Bowel Sounds: RUQ: Active LUQ: Active RLQ: Active LLQ: Active GENITOURINARY Elimination: Continent ========= INTEGUMENTARY/SKIN/WOUND - (INCLUDING MADY) SEE NOTE: VAAES SKIN INPECTION/ASSESSMENT ========= ACTIVITIES OF DAILY LIVING Hygiene ADLs: Foot Care: Inspection Oral Care: Non-ventilator patient: Patient teeth brushed: With assistance Patient dentures/partial plates cleaned: With assistance The was educated that poor oral hygiene increases the risk of hospital acquired pneumonia and dental problems like gingivitis and tooth decay. Marcus was educated using their preferred method and verbalized understanding. Oral Mucositis Scale: Oral mucositis (clinical exam): Grade 1 = Erythema of the mucosa Oral mucositis (functional/symptomatic): Grade 1 = Minimal symptoms, normal diet Pericare: Dependent Personal Care: Maximal assist Toileting: Independent MOBILITY Mobility Status: Independent: Able to stand and step without staff assistance Steady standing balance Gait: Steady IV LINES PSYCHOSOCIAL Type of Emotional Support Provided: 1:1 discussion ADULT EDUCATION Patient declined education assessment/unable to receive education due to health status at this time. Updates to barriers to learning: None evident Updates to patient learning style: None /rody/ ELLIS RAMOS RN REGISTERED NURSE Signed: 11/12/2024 00:30 ELLIS RAMOS [facility] November 11, 2024 09:20 PM NURSING INPATIENT NOTE: LOCAL TITLE: [facility] NURSING FREQUENT DOCUMENTATION STANDARD TITLE: NURSING INPATIENT NOTE DATE OF NOTE: NOVEMBER 11, 2024@21:20 ENTRY DATE: NOVEMBER 12, 2024@00:38:33 AUTHOR: ELLIS RAMOS EXP COSIGNER: URGENCY: STATUS: COMPLETED Version 2.4 Charting in accordance with [facility] RINCON STANDARD ([facility]) ACUTE INPATIENT/REHABILITATION NURSING ADMISSION SCREENING, ASSESSMENT, AND STANDARDS OF CARE NATIONAL EARLY WARNING SCORE (NEWS) The vital signs below were used for scoring: Temperature: 97.3 Pulse: 98 Blood Pressure: 139/104 Respiration: 20 Pulse Oximetry: 100 The NEWS total is 1. 1. Temperature (C/F): Score = 0 36.1 - 38.0 C (96.9 - 100.4 F) 2. Pulse: Score = 1 91-110 3. Respirations: Score = 0 12-20 4. Blood Pressure (Only Systolic BP, mmHg): Score = 0 111-219 5. Pulse Oximetry: Score = 0 96% or greater 6. Supplemental oxygen in use: Score = 0 No 7. AVPU: Score = 0 Alert /rody/ ELLIS RAMOS RN REGISTERED NURSE Signed: 11/12/2024 00:52 ELLIS RAMOS [facility] November 11, 2024 08:49 PM CARDIOLOGY NOTE: LOCAL TITLE: CARDIOLOGY TELEMETRY STL STANDARD TITLE: CARDIOLOGY NOTE DATE OF NOTE: NOVEMBER 11, 2024@20:49 ENTRY DATE: NOVEMBER 11, 2024@20:49:25 AUTHOR: ABIEL KEY EXP COSIGNER: URGENCY: STATUS: COMPLETED CARDIOLOGY TELEMETRY STL Has ADDENDA Telemetry reviewed: Atrial Fibrillation, Atrial Flutter, Other MF pvc's BILLING DEPARTMENT SUPERVISOR #: 40 RATE: 80-119 SHIFT: 3-11 Shift COMMENT: Patient's cardiac telemetry rhythm strips were placed in their chart at the nurses station /jessica KEY Microbiology Professor EKG Signed: 11/11/2024 20:50 11/11/2024 ADDENDUM STATUS: COMPLETED PRESLEY Heaton notified at 21:05 about frequent but, brief non-sustained increases in HR into the 130's bpm /rody/ ABIEL KEY Microbiology Professor EKG Signed: 11/11/2024 21:11 ABIEL KEY [facility] November 11, 2024 07:26 PM NURSING INPATIENT NOTE: LOCAL TITLE: [facility] NURSING FREQUENT DOCUMENTATION STANDARD TITLE: NURSING INPATIENT NOTE DATE OF NOTE: NOVEMBER 11, 2024@19:26 ENTRY DATE: NOVEMBER 11, 2024@19:26:41 AUTHOR: JIE DAVENPORT EXP COSIGNER: URGENCY: STATUS: COMPLETED Version 2.4 Charting in accordance with [place] APPROVED RINCON STANDARD (WIAES) ACUTE INPATIENT/REHABILITATION NURSING ADMISSION SCREENING, ASSESSMENT, AND STANDARDS OF CARE ACTIVITIES OF DAILY LIVING Hygiene ADLs: Dressing: Upper Body: Independent Lower Body: Independent Eating: Independent Foot Care: Inspection Hand Hygiene: Performed post toileting Performed pre meals/snacks Oral Care: Non-ventilator patient: Patient teeth brushed: Independently The was educated that poor oral hygiene increases the risk of hospital acquired pneumonia and dental problems like gingivitis and tooth decay. was educated using their preferred method and verbalized understanding. Pericare: Soap and water Independent Personal Care: Shower Independent ACTIVITY/MOBILIZATION Mobility Status: Independent: Able to stand and step without staff assistance Steady standing balance Gait: [facility] - Highest Level of Mobility achieved this shift: 6 - Walked 10 steps or more (walked to restroom) ENVIRONMENTAL SAFETY MANAGEMENT Implemented safety standards of care: -Harleigh to unit & environment -Adequate room lighting -Bed in low and locked position -Call light within reach -Personal items within reach -Traffic path in room free of clutter -Non-slip footwear -Upper/half length side rails up for bed mobility -Sensory aids within reach -Encourage patient to utilize sensory support ORAL INTAKE (PERCENTAGE OF MEAL EATEN) Lunch: 76% - 100% Dinner: 76% - 100% /rody/ KENYON [employer] PUBLIC SAFETY OFFICER Signed: 11/11/2024 19:28 JIE DAVENPORT [facility] November 11, 2024 07:25 PM NURSING INPATIENT NOTE: LOCAL TITLE: [facility] ACUTE INPATIENT NSG SHIFT ASSESSMENT STANDARD TITLE: NURSING INPATIENT NOTE DATE OF NOTE: NOVEMBER 11, 2024@19:25 ENTRY DATE: NOVEMBER 11, 2024@19:25:13 AUTHOR: BERT SPAULDING COSIGNER: URGENCY: STATUS: COMPLETED Version 2.2 Charting in accordance with [facility] RINCON STANDARD (WIAES) ACUTE INPATIENT/REHABILITATION NURSING ADMISSION SCREENING, ASSESSMENT, AND STANDARDS OF CARE REASSESSMENT NEUROLOGICAL Neurological Orientation: Person Level of Consciousness (AVPU): Alert = Appears aware of and responsive to the environment on their own. Follows commands, opens eyes spontaneously, and tracks objects. CARDIOVASCULAR Cardiac Rhythm Analysis: Atrial Fibrillation Capillary Refill: All 4 extremities, less than or equal to 3 seconds. Peripheral Pulses: All 4 extremities, 3+ normal. RESPIRATORY Respirations: Unlabored Pattern: Regular Breath Sounds Auscultated: Left Upper Lobe: Clear Right Upper Lobe: Clear Right Middle Lobe: Clear Left Lower Lobe: Clear Right Lower Lobe: Clear GASTROINTESTINAL No bowel movement reported by patient Abdominal Description: Rounded Palpation: Soft Bowel Sounds: RUQ: Active LUQ: Active RLQ: Active LLQ: Active GENITOURINARY Elimination: Continent Incontinent ========= INTEGUMENTARY/SKIN/WOUND - (INCLUDING MADY) SEE NOTE: VAAES SKIN INPECTION/ASSESSMENT ========= /es/ DENA GARCIA,RN REGISTERED NURSE Signed: 11/11/2024 19:27 BERT SPAULDING [facility] November 11, 2024 01:31 PM INTERNAL MEDICINE INPATIENT NOTE: LOCAL TITLE: MEDICINE GENERAL INPATIENT NOTE STANDARD TITLE: INTERNAL MEDICINE INPATIENT NOTE DATE OF NOTE: NOVEMBER 11, 2024@13:31 ENTRY DATE: NOVEMBER 11, 2024@13:31:38 AUTHOR: BREE GARCIA COSIGNER: LONDON MURPHY URGENCY: STATUS: COMPLETED MEDICINE GENERAL INPATIENT NOTE Has ADDENDA Med II Name: ALEXEI VANN JR Age: [age] year old Sex: MALE Admitted on Oct 18:42 for Last Admission: 11/05/24 6:42:14 pm Admit Dx: AMS. SUBJECTIVE ========= NAEON. Patient doing well this am, no acute concerns or pain. A&Ox1. Reports last BM yesterday morning. Per nurse, voiding well since mendoza removed, sometimes needs promoting to urinate, but not requiring straight cathing for post-void residual. HOSPITAL COURSE ======== 79 yo pmhx of Alzheimers dementia (AOx2 at baseline), HFrEF, Afib, emphysema, hx of skin cancer coming in as OSH transfer from [facility] for intial concern of acute encephalopathy and UTI.Transferred to [facility] for assistance with placement. On arrival to [facility], VSS. Pt is AOx2 (at baseline). Patient does not have understanding as to why he is currently in the hospital. During admission, patient noted ot be in a-fib rvr, no IV access and was given PO metoprolol. Metoprolol Tartrate changed to 37.5 mg Q6h for rate control. Patient's metoprolol tartrate increased to 50mg q6h with HR between 80-120, and Afib/Aflutter. OBJECTIVE ======== Vital Signs: Pulse: 80 (11/11/2024 09:09) BP: 119/79 (11/11/2024 09:09) RESP: 18 (11/11/2024 09:09) Pain: 0 (11/11/2024 09:09) Tmax: Pulse Oximetry: Weight: 209.5 lb [95.03 kg] (11/09/2024 05:18) Intake/Output: PHYSICAL EXAM: General: Pleasant, NAD, A&Ox1 Skin: Intact, no abrasions/ulcers/echymosis , no rashes/lesions/erythema HEENT: AT, NC, MMM, PERRLA Neck: Supple Lungs: no respiratory distress Cardiovascular: RRR Abdominal: Soft, NTND Extremities: No cyanosis, clubbing, or edema Neuro: no focal neurological deficits Active Inpatient Medications: 1) ENOXAPARIN INJ SQ QDAILY 2) MEMANTINE TAB PO DAILY 5MG 3) ACETAMINOPHEN TAB PO QID PRN 500MG 4) POLYETHYLENE GLYCOL 3350 PKT POWDER,ORAL PO QDAILY PRN 1 PACKET 5) DONEPEZIL TAB PO QHS 5MG 6) QUETIAPINE TAB PO BID 50MG 7) SACUBITRIL/VALSARTAN TAB PO BID 24MG/26MG 8) TAMSULOSIN CAP,ORAL PO QPM 0.4MG 9) SENNOSIDES (OTC) TAB PO QDAILY 17.2MG 10) THIAMINE TAB PO QHS 100MG 11) MELATONIN CAP/TAB PO QHS PRN 1MG 12) METOPROLOL SUCCINATE (SUST RELEASE) PO BID 100MG Recent Labs: BASIC METABOLIC PANEL: SODIUM 136 mEq/L 11/11/2024 06:00 POTASSIUM 4.3 mEq/L 11/11/2024 06:00 CHLORIDE 104 mEq/L 11/11/2024 06:00 UREA NITROGEN 16.9 mg/dL 11/11/2024 06:00 CREATININE 0.89 mg/dL 11/11/2024 06:00 CALCIUM 8.8 mg/dL 11/11/2024 06:00 CARBON DIOXIDE 25 mEq/L 11/11/2024 06:00 GLUCOSE 99 mg/dL 11/11/2024 06:00 EGFR (CKD-EPI 2020) 86.1 11/11/2024 06:00 WBC: 9.2 10*3/uL (11/11/24 06:00) HCT: 50.4 % H (11/11/24 06:00) HGB: HGB 16.7 g/dL 11/11/2024 06:00 Plt: PLT 236 10*3/uL 11/11/2024 06:00 ASSESSMENT/PLAN ======== 79 yo pmhx of Alzheimers dementia (AOx2 at baseline), HFrEF, Afib who initially presented to OSH for AMS and UTI now transferred to [facility] for placement. #Afib, no longer in RVR, HD stable - Home meds: metop succinate 100mg BID but at [place] switched to metop tartate 37.5 BID. Not on AC per chart review - EKG reports at [place] erson show patient still in afib - CHADVASC: 3 (HF, age) Plan: - continuous Tele - Continue Metoprolol succinate 100 BID - Will discuss with family need for AC as CHADsVASC >2, has been held due to recurrent falls in past. #Acute encephalopathy - resolved #Alzheimer dementia - AMS likely 2/2 UTI vs. hospital delirium but now back to baseline per chart reiview (resolved) - Home meds: donepezil 5mg daily - [facility] OSH: left MCA sign - Neuro consulted. Recommend doppler and Vit D/Folic/B12/TSH/UDS which were were all normal. Continued donepezil and initated on seroqel and memantine at [place]. Required IM haldol at times for severe agitation. Plan: - Continue donepezil, memantine, seroquel - Per daughter in law, patient is no longer able to live on his own - Psych consulted and found patient to be decisional in terms of discharge planning. Patient has expressed wanting to go home. Plan for patient to go to son's home on d/c with snf and home chore on discharge. - Pt/OT recommendations include 29/01 supervision - continue 1-1 sitter for elopement risk #UTI - resolved #Urinary retention s/p mendoza - OSH VSS. WBC 10. UA +LE, +blood, +WBC. No UCX. - Initiated on ceftriaxone then transitioned to cefdinir 10/20-10/26 - Bladder scans were c/f urinary retention, despite initial refusal patient eventually got a mendoza placed. Continued on home tamsulosin. Etiology 2/2 BPH vs. medication induced. - previously failed voiding trial. Mendoza removed and Voiding trial reattempted 11/10 with success, patient voiding well, not requiring straight cath for post- void residual. Plan: - Has completed UTI tx at OSH - Continue home tamsulosin 0.4mg - Continue bladder scans q4hr and straight cath for PVR>300. #HFrEF - Medications unclear, separate med list at [place] and home meds list. Pt not able to state what medications he is on. - Last TTE: EF of 25-30% with abnormal diastolic function, mild aortic calcifications and mild tricuspid regurgitation - [facility] meds: Metop tartrate 37.5 BID, entresto - Home meds: digoxin 0.125, metop succinate 100 daily, spironolactone 25mg daily, lasix 40mg daily - Pt euvolemic on exam Plan: - family unaware of home medications - Continue home metoprolol succinate 100 BID, entresto #Emphysema - not on home inhalers, ctm #Hx of skin cancer - ctm Code: Full Diet: regular Activity:as tolerated DVT ppx: lovenox Dispo:Home with son when medically stable and family able to recieve patient. Bree Garcia MD Neurology PGY-1 /rody/ BREE GARCIA DIP DYER Signed: 11/11/2024 13:40 /rody/ LONDON MURPHY MD Staff Physician Cosigned: 11/11/2024 22:41 11/11/2024 ADDENDUM STATUS: COMPLETED The patient was discussed with the resident and I have independently reviewed the chart and relevant labs and imaging. I agree with the assessment and plan as documented in the resident's note. /jessica MURPHY MD Staff Physician Signed: 11/11/2024 22:41 BREE GARCIA [facility] November 11, 2024 10:13 AM CARDIOLOGY NOTE: LOCAL TITLE: CARDIOLOGY TELEMETRY ST STANDARD TITLE: CARDIOLOGY NOTE DATE OF NOTE: NOVEMBER 11, 2024@10:13 ENTRY DATE: NOVEMBER 11, 2024@10:13:37 AUTHOR: JONO MOON EXP COSIGNER: URGENCY: STATUS: COMPLETED Telemetry reviewed: Atrial Fibrillation BILLING DEPARTMENT SUPERVISOR #: 40 RATE: 90's SHIFT: 7-3 Shift COMMENT: /rody/ JONO MOON JR. MEDICAL SENIOR ACCOUNT CLERK Signed: 11/11/2024 10:14 JONO MOON [facility] November 11, 2024 08:34 AM NURSING INPATIENT NOTE: LOCAL TITLE: [facility] NURSING FREQUENT DOCUMENTATION STANDARD TITLE: NURSING INPATIENT NOTE DATE OF NOTE: NOVEMBER 11, 2024@08:34 ENTRY DATE: NOVEMBER 11, 2024@08:34:39 AUTHOR: BERT SPAULDING COSIGNER: URGENCY: STATUS: COMPLETED Version 2.4 Charting in accordance with [facility] RINCON STANDARD ([place]) ACUTE INPATIENT/REHABILITATION NURSING ADMISSION SCREENING, ASSESSMENT, AND STANDARDS OF CARE NATIONAL EARLY WARNING SCORE (NEWS) The following vital measurements were used to complete the NEWS. Measurement DT TEMP PULSE RESP BP POx F(C) (L/MIN)(%) 11/11/2024 08:00 98.5(36.9) 79 17 116/74 96 The NEWS total is 0. 1. Temperature (C/F): Score = 0 36.1 - 38.0 C (96.9 - 100.4 F) 2. Pulse: Score = 0 51-90 3. Respirations: Score = 0 12-20 4. Blood Pressure (Only Systolic BP, mmHg): Score = 0 111-219 5. Pulse Oximetry: Score = 0 96% or greater 6. Supplemental oxygen in use: Score = 0 No 7. AVPU: Score = 0 Alert Patient Status: Remains on unit ACTIVITIES OF DAILY LIVING Hygiene ADLs: Oral Care: Non-ventilator patient: Patient teeth brushed: Independently The was educated that poor oral hygiene increases the risk of hospital acquired pneumonia and dental problems like gingivitis and tooth decay. Marcus was educated using their preferred method and verbalized understanding. /rody/ DENA GARCIA,RN REGISTERED NURSE Signed: 11/11/2024 08:36 BERT SPAULDING [facility] November 11, 2024 08:03 AM NURSING INPATIENT NOTE: LOCAL TITLE: [facility] NURSING FREQUENT DOCUMENTATION STANDARD TITLE: NURSING INPATIENT NOTE DATE OF NOTE: NOVEMBER 11, 2024@08:03 ENTRY DATE: NOVEMBER 11, 2024@08:03:55 AUTHOR: JIE DAVENPORT EXP COSIGNER: URGENCY: STATUS: COMPLETED Version 2.4 Charting in accordance with [facility] RINCON STANDARD ([facility]) ACUTE INPATIENT/REHABILITATION NURSING ADMISSION SCREENING, ASSESSMENT, AND STANDARDS OF CARE ORAL INTAKE (PERCENTAGE OF MEAL EATEN) Breakfast: 76% - 100% /KENYON Sloan SECURITY PUBLIC SAFETY OFFICER Signed: 11/11/2024 08:04 JIE DAVENPORT [facility] November 11, 2024 06:16 AM NURSING INPATIENT NOTE: LOCAL TITLE: [facility] NURSING FREQUENT DOCUMENTATION STANDARD TITLE: NURSING INPATIENT NOTE DATE OF NOTE: NOVEMBER 11, 2024@06:16 ENTRY DATE: NOVEMBER 11, 2024@06:17:06 AUTHOR: LILLY RODRIGUEZ EXP COSIGNER: URGENCY: STATUS: COMPLETED Version 2.4 Charting in accordance with [place] APPROVED RINCON STANDARD (WIAES) ACUTE INPATIENT/REHABILITATION NURSING ADMISSION SCREENING, ASSESSMENT, AND STANDARDS OF CARE BLADDER SCAN Bladder distention: Absent Time Scan performed: November@06:17 Voided within 15 minutes prior to scan: No Initial bladder volume (ml): 743 Urine voided (ml): Urine Amount Unmeasured: Moderate Post-void bladder volume (ml): 189 Random bladder volume(ml): Patient was NOT catheterized Post-void residual catheterization amount (ml): /rody/ LILLY FERNANDES RN REGISTERED NURSE Signed: 11/11/2024 06:18 LILLY RODRIGUEZ [facility] November 11, 2024 06:15 AM NURSING INPATIENT NOTE: LOCAL TITLE: [facility] ACUTE INPATIENT NSG SHIFT ASSESSMENT STANDARD TITLE: NURSING INPATIENT NOTE DATE OF NOTE: NOVEMBER 11, 2024@06:15 ENTRY DATE: NOVEMBER 11, 2024@07:17:42 AUTHOR: LILLY RODRIGUEZ EXP COSIGNER: URGENCY: STATUS: COMPLETED Version 2.2 Charting in accordance with [place] APPROVED RINCON STANDARD (WIAES) ACUTE INPATIENT/REHABILITATION NURSING ADMISSION SCREENING, ASSESSMENT, AND STANDARDS OF CARE REASSESSMENT PAIN ASSESSMENT Patient's acceptable pain goal: 0 No pain Are you currently experiencing pain? No: Pain Score: 0 ENVIRONMENTAL SAFETY MANAGEMENT Implemented safety standards of care: -[place]leigh to unit & environment -Adequate room lighting -Bed in low and locked position -Call light within reach -Personal items within reach -Traffic path in room free of clutter -Non-slip footwear -Upper/half length side rails up for bed mobility -Sensory aids within reach -Encourage patient to utilize sensory support Additional safety measures: Patient health and safety inspector: (Suicidal/Homicidal Ideation) Attendant type: Unlicensed Assistive Personnel at bedside NEUROLOGICAL Neurological Orientation: Person Place Level of Consciousness (AVPU): Alert = Appears aware of and responsive to the environment on their own. Follows commands, opens eyes spontaneously, and tracks objects. NEUROMUSCULAR/NEUROVASCULA R EXTREMITIES ASSESSMENT Strength: Gore Stitcher Bilateral: Strong Upper Extremity Bilateral: Full strength Lower Extremity Bilateral: Full strength CARDIOVASCULAR Heart Sounds: Normal (S1S2) Heart Rate/Rhythm (without awake overnight monitor): Irregular RESPIRATORY Respirations: Unlabored Pattern: Regular GASTROINTESTINAL Elimination: Continent GENITOURINARY Elimination: Continent ========= INTEGUMENTARY/SKIN/WOUND - (INCLUDING MADY) SEE NOTE: VAAES SKIN INPECTION/ASSESSMENT ========= /es/ LILLY FERNANDES RN REGISTERED NURSE Signed: 11/11/2024 07:19 LILLY RODRIGUEZ [facility] November 11, 2024 03:49 AM CARDIOLOGY NOTE: LOCAL TITLE: CARDIOLOGY TELEMETRY ST STANDARD TITLE: CARDIOLOGY NOTE DATE OF NOTE: NOVEMBER 11, 2024@03:49 ENTRY DATE: NOVEMBER 11, 2024@03:49:46 AUTHOR: CATE MENJIVAR COSIGNER: URGENCY: STATUS: COMPLETED Telemetry reviewed: Atrial Fibrillation BILLING DEPARTMENT SUPERVISOR #: 40 RATE: 80s-130s SHIFT: 11-7 Shift COMMENT: HR primarily rested 80s-90s. It was nonsustained when it increased to the 130s. /rody/ CATE MENJIVAR INSTRUCTIONAL DESIGN TECHNOLOGIST Signed: 11/11/2024 03:51 CATE MENJIVAR [facility] November 10, 2024 11:57 PM NURSING INPATIENT NOTE: LOCAL TITLE: [facility] PATIENT SAFETY CHECK STL STANDARD TITLE: NURSING INPATIENT NOTE DATE OF NOTE: NOVEMBER 10, 2024@23:57 ENTRY DATE: NOVEMBER 10, 2024@23:57:09 AUTHOR: LILLY RODRIGUEZ EXP COSIGNER: URGENCY: STATUS: COMPLETED BEDSIDE SAFETY CHECK STL Visual inspection of wounds, incisions, and drains. A visual sweep of the patient's room for any physical or environmental safety concerns was completed and education provided to patient regarding their personal safety concerns. Comment: Pt in bed resting on back with eyes closed. Respirations are even and unlabored on room air. No s/s of discomfort observed. Call light and personal items remain within reach. /rody/ LILLY DAVIDSONN RN REGISTERED NURSE Signed: 11/10/2024 23:57 LILLY RODRIGUEZ [facility] November 10, 2024 10:37 PM NURSING INPATIENT NOTE: LOCAL TITLE: [facility] NURSING FREQUENT DOCUMENTATION STANDARD TITLE: NURSING INPATIENT NOTE DATE OF NOTE: NOVEMBER 10, 2024@22:37 ENTRY DATE: NOVEMBER 10, 2024@22:37:27 AUTHOR: LILLY RODRIGUEZ EXP COSIGNER: URGENCY: STATUS: COMPLETED Version 2.4 Charting in accordance with [place] APPROVED RINCON STANDARD (WIAES) ACUTE INPATIENT/REHABILITATION NURSING ADMISSION SCREENING, ASSESSMENT, AND STANDARDS OF CARE BLADDER SCAN Bladder distention: Absent Time Scan performed: November@22:37 Voided within 15 minutes prior to scan: No Initial bladder volume (ml): 113 Urine voided (ml): Urine Amount Unmeasured: Moderate Post-void bladder volume (ml): Random bladder volume(ml): Patient was NOT catheterized Post-void residual catheterization amount (ml): /jessica FERNANDES RN REGISTERED NURSE Signed: 11/10/2024 22:38 [facility] November 10, 2024 10:22 PM NURSING NOTE: LOCAL TITLE: JOSE PROGRESS NOTE STL STANDARD TITLE: NURSING NOTE DATE OF NOTE: NOVEMBER 10, 2024@22:22 ENTRY DATE: NOVEMBER 10, 2024@22:22:06 AUTHOR: LILLY RODRIGUEZ EXP COSIGNER: URGENCY: STATUS: COMPLETED JOSE PROGRESS NOTE STL Has ADDENDA PM medications administered per MD order. Pt verbalizes all needs are met. Sitetr remains at bedside. /jessica FERNANDES RN REGISTERED NURSE Signed: 11/10/2024 22:22 11/11/2024 ADDENDUM STATUS: COMPLETED Sitter at bedside. Bladder scan completed as documeneted. Pt verbalizes all needs are met. Call light and personal items remain within reach. /jessica FERNANDES RN REGISTERED NURSE Signed: 11/11/2024 06:19 [facility] November 10, 2024 08:35 PM NURSING INPATIENT NOTE: LOCAL TITLE: [facility] ACUTE INPATIENT NSG SHIFT ASSESSMENT STANDARD TITLE: NURSING INPATIENT NOTE DATE OF NOTE: NOVEMBER 10, 2024@20:35 ENTRY DATE: NOVEMBER 10, 2024@22:29:13 AUTHOR: LILLY RODRIGUEZ EXP COSIGNER: URGENCY: STATUS: COMPLETED Version 2.2 Charting in accordance with [place] APPROVED RINCON STANDARD (WIAES) ACUTE INPATIENT/REHABILITATION NURSING ADMISSION SCREENING, ASSESSMENT, AND STANDARDS OF CARE ASSESSMENT HANDOFF Bedside report and handoff completed Safety check completed PAIN ASSESSMENT Patient's acceptable pain goal: 0 No pain Are you currently experiencing pain? No: Pain Score: 0 DESOUZA FALL SCALE & TIPS PROGRAM Desouza Fall Scale: The Desouza Fall scale was performed and score was 35. This is indicative of moderate risk for falls. History of falling: immediate or within 3 months? No Secondary diagnosis: Yes Ambulatory aid: None/bedrest/nurse assist Intravenous therapy/Heparin lock: Yes Gait/Transferring: Normal/bed rest/immobile Mental Status: Oriented to own ability/knows own limitations Fall Tailoring Interventions for Patient Safety (TIPS) Fall TIPS initiated with patient: Yes Interventions: Communicate recent fall or risk of harm Toileting method: Assist to bathroom Fall TIPS reviewed with patient: Yes Interventions: Communicate recent fall or risk of harm Toileting method: Assist to bathroom ENVIRONMENTAL SAFETY MANAGEMENT Implemented safety standards of care: -Harleigh to unit & environment -Adequate room lighting -Bed in low and locked position -Call light within reach -Personal items within reach -Traffic path in room free of clutter -Non-slip footwear -Upper/half length side rails up for bed mobility -Sensory aids within reach -Encourage patient to utilize sensory support Additional safety measures: Therapeutic [place] Worker: Therapeutic/Telecare [place] Worker criteria: Change in mental status, impulsivity General safety concerns [place] Worker type: Unlicensed Assistive Personnel at bedside NEUROLOGICAL Neurological Orientation: Person Level of Consciousness (AVPU): Alert = Appears aware of and responsive to the environment on their own. Follows commands, opens eyes spontaneously, and tracks objects. Affect/behavior: Cooperative Calm NEUROMUSCULAR/NEUROVASCULA R EXTREMITIES ASSESSMENT Strength: Gore Stitcher Bilateral: Strong Upper Extremity Bilateral: Full strength Lower Extremity Bilateral: Full strength Sensation: Upper Extremity Sensation Bilateral: Intact Lower Extremity Sensation Bilateral: Intact Temperature: Upper Extremity Temperature Bilateral: Warm Lower Extremity Temperature Bilateral: Warm CARDIOVASCULAR Heart Sounds: Normal (S1S2) Heart Rate/Rhythm (without awake overnight monitor): Regular Cardiac Rhythm Analysis: Atrial Fibrillation Telemetry Transmitter Pack #: 40 Capillary Refill: All 4 extremities, less than or equal to 3 seconds. Peripheral Pulses: All 4 extremities, 3+ normal. Edema: None Cardiovascular - Embolism Prevention: Comment: lovenox RESPIRATORY Respirations: Unlabored Pattern: Regular Breath Sounds Auscultated: Posterior only Left Upper Lobe: Clear Right Upper Lobe: Clear Right Middle Lobe: Clear Left Lower Lobe: Clear Right Lower Lobe: Clear GASTROINTESTINAL Last bowel movement: 11/10/2024 Elimination: Continent Abdominal Description: Rounded Palpation: Soft, Non-tender Bowel Sounds: RUQ: Active LUQ: Active RLQ: Active LLQ: Active GENITOURINARY Elimination: Continent Voiding Difficulties: Other: bladder scan q4h ========= INTEGUMENTARY/SKIN/WOUND - (INCLUDING MADY) SEE NOTE: VAAES SKIN INPECTION/ASSESSMENT ========= ACTIVITIES OF DAILY LIVING Hygiene ADLs: Oral Care: Non-ventilator patient: Patient teeth brushed: Independently MOBILITY Mobility Status: Minimum assist: Stands with support only (Unsteady or requires verbal cueing) Gait: Steady PSYCHOSOCIAL Type of Emotional Support Provided: Ventilation of feelings encouraged ADULT EDUCATION /rody/ LILLY RODRIGUEZ BSN RN REGISTERED NURSE Signed: 11/10/2024 22:36 LILLY RODRIGUEZ [facility] November 10, 2024 08:30 PM NURSING NOTE: LOCAL TITLE: [facility] SKIN INSPECTION/ASSESSMENT STANDARD TITLE: NURSING NOTE DATE OF NOTE: NOVEMBER 10, 2024@20:30 ENTRY DATE: NOVEMBER 10, 2024@20:30:41 AUTHOR: LILLY RODRIGUEZ EXP COSIGNER: URGENCY: STATUS: COMPLETED Assessment Type: SKIN REINSPECTION/REASSESSMENT SKIN INSPECTION: Skin Color: Usual for ethnicity Skin Temperature: Warm Skin Moisture: Normal Skin Turgor: Elastic (normal/immediate) Mady Skin Assessment: The patient's Mady Scale Score is 20. The patient is considered not at risk for development of pressure ulcers/injuries. Sensory perception -- ability to respond meaningfully to pressure-related discomfort Slightly limited. Moisture -- degree to which skin is exposed to moisture Rarely moist. Activity -- ability to change and control body position Walks occasionally. Mobility -- ability to change and control body position No limitation. Nutrition -- usual food intake patterns Adequate. Friction and shear No apparent problem. INTERVENTIONS: No change in previous interventions as listed below Pressure Ulcer-Education 11/06/2024 Educate Importance Of Changing Position Pressure Ulcer-Nutrition 11/06/2024 Encourage Eating And Assist With Meals Monitor Fluid/Food Intake Offer Liquids Q2H When Turning Offer Ordered Supplements Provide/Encourage Oral Care As Needed Tray Set Up And Assistance Pressure Ulcer-Remobilize 11/06/2024 Encourage Activity As Tolerated Vaaes Pressure Injury Interventions 11/09/2024 Vaaes Pressure Injury Int Not Needed RISK FACTORS THAT INCREASE RISK FOR DEVELOPING PRESSURE INJURIES: The patient/resident has the following: Age over 75 Device(s): (nasogastric tubes, oxygen tubing, urinary catheters, cell phone etc.) Comment: telemetry Localized abnormality: Erythema non-blanchable: Location(s): BLE Comment: w/dryness /rody/ LILLY FERNANDES RN REGISTERED NURSE Signed: 11/10/2024 20:32 LILLY RODRIGUEZ [facility] November 10, 2024 08:28 PM NURSING INPATIENT NOTE: LOCAL TITLE: [facility] NURSING FREQUENT DOCUMENTATION STANDARD TITLE: NURSING INPATIENT NOTE DATE OF NOTE: NOVEMBER 10, 2024@20:28 ENTRY DATE: NOVEMBER 10, 2024@20:28:11 AUTHOR: LILLY RODRIGUEZ EXP COSIGNER: URGENCY: STATUS: COMPLETED Version 2.4 Charting in accordance with [place] APPROVED R[place]CON STANDARD ([facility]) ACUTE INPATIENT/REHABILITATION NURSING ADMISSION SCREENING, ASSESSMENT, AND STANDARDS OF CARE NATIONAL EARLY WARNING SCORE (NEWS) The following vital measurements were used to complete the NEWS. Measurement DT TEMP PULSE RESP BP POx F(C) (L/MIN)(%) 11/10/2024 20:27 97.7(36.5) 64 18 136/85 96 The NEWS total is 0. 1. Temperature (C/F): Score = 0 36.1 - 38.0 C (96.9 - 100.4 F) 2. Pulse: Score = 0 51-90 3. Respirations: Score = 0 12-20 4. Blood Pressure (Only Systolic BP, mmHg): Score = 0 111-219 5. Pulse Oximetry: Score = 0 96% or greater 6. Supplemental oxygen in use: Score = 0 No 7. AVPU: Score = 0 Alert /rody/ LILLY FERNANDES RN REGISTERED NURSE Signed: 11/10/2024 20:28 LILLY RODRIGUEZ [facility] November 10, 2024 07:44 PM CARDIOLOGY NOTE: LOCAL TITLE: CARDIOLOGY TELEMETRY STL STANDARD TITLE: CARDIOLOGY NOTE DATE OF NOTE: NOVEMBER 10, 2024@19:44 ENTRY DATE: NOVEMBER 10, 2024@19:44:23 AUTHOR: KAYLIN DIETRICH EXP COSIGNER: URGENCY: STATUS: COMPLETED Telemetry reviewed: Atrial Fib/Flutter pvcs BILLING DEPARTMENT SUPERVISOR #: 40 RATE: 80s-100s SHIFT: 3-11 Shift COMMENT: A hard copy of the telemetry strip was placed in the patient chart. /rody/ KAYLIN DIETRICH INSTRUCTIONAL DESIGN TECHNOLOGIST Signed: 11/10/2024 19:46 KAYLIN DIETRICH Katelyn [facility] November 10, 2024 03:30 PM NURSING INPATIENT NOTE: LOCAL TITLE: [facility] NURSING FREQUENT DOCUMENTATION STANDARD TITLE: NURSING INPATIENT NOTE DATE OF NOTE: NOVEMBER 10, 2024@15:30 ENTRY DATE: NOVEMBER 10, 2024@19:19:20 AUTHOR: STELLA WALLACE EXP COSIGNER: URGENCY: STATUS: COMPLETED Version 2.4 Charting in accordance with [place] APPROVED R[place]CON STANDARD ([facility]IA[facility]) ACUTE INPATIENT/REHABILITATION NURSING ADMISSION SCREENING, ASSESSMENT, AND STANDARDS OF CARE BLADDER SCAN Bladder distention: Absent Time Scan performed: November@15:30 Voided within 15 minutes prior to scan: Yes Urine Amount Unmeasured: Large Post-void bladder volume (ml): 13 Patient was NOT catheterized Talya Wilkins completed bladder scan /rody/ STELLA WALLACE REGISTERED NURSE Signed: 11/15/2024 09:11 STELLA WALLACE [facility] November 10, 2024 03:23 PM INTERNAL MEDICINE INPATIENT NOTE: LOCAL TITLE: MEDICINE GENERAL INPATIENT NOTE STANDARD TITLE: INTERNAL MEDICINE INPATIENT NOTE DATE OF NOTE: NOVEMBER 10, 2024@15:23 ENTRY DATE: NOVEMBER 10, 2024@15:29:39 AUTHOR: BREE GARCIA COSIGNER: LONDON MURPHY URGENCY: STATUS: COMPLETED MEDICINE GENERAL INPATIENT NOTE Has ADDENDA Med II Name: ALEXEI VANN JR Age: [age] year old Sex: MALE Admitted on Oct 18:42 for Last Admission: 11/05/24 6:42:14 pm Admit Dx: AMS. SUBJECTIVE ========= NAEON. Patient denies any acute concerns this morning. Plan to remove mendoza and attempt voiding trial today. Spoke to patient's daughter in law today regarding patient discharge soon. She says they will be unable to recieve patient until Sunday evening at earliest as they are waiting for a recliner chair (arriving late tomorrow) and family will be unavailable to pick/recieve patient at home until evening on Sunday. HOSPITAL COURSE ======== 79 yo pmhx of Alzheimers dementia (AOx2 at baseline), HFrEF, Afib, emphysema, hx of skin cancer coming in as OSH transfer from [facility] for intial concern of acute encephalopathy and UTI.Transferred to [facility] for assistance with placement. On arrival to [facility], VSS. Pt is AOx2 (at baseline). Patient does not have understanding as to why he is currently in the hospital. During admission, patient noted ot be in a-fib rvr, no IV access and was given PO metoprolol. Metoprolol Tartrate changed to 37.5 mg Q6h for rate control. Patient's metoprolol tartrate increased to 50mg q6h with HR between 80-120, and Afib/Aflutter. OBJECTIVE ======== Vital Signs: Pulse: 71 (11/10/2024 08:33) BP: 101/68 (11/10/2024 08:33) RESP: 18 (11/10/2024 08:33) Pain: 0 (11/10/2024 09:35) Tmax: Pulse Oximetry: Weight: 209.5 lb [95.03 kg] (11/09/2024 05:18) Intake/Output: PHYSICAL EXAM: General: Pleasant, NAD, A&Ox4 Skin: Intact, no abrasions/ulcers/echymosis , no rashes/lesions/erythema HEENT: AT, NC, MMM, PERRLA, no oropharyngeal erythema or exudates Neck: Supple, no CAD, no JVD Lungs: CTA bilaterally, no respiratory distress Cardiovascular: RRR, no murmur/rubs/gallops Abdominal: Soft, NTND, +BS, no rebound or guarding Extremities: No cyanosis, clubbing, or edema Neuro: no focal neurological deficits Active Inpatient Medications: 1) ENOXAPARIN INJ SQ QDAILY 2) MEMANTINE TAB PO DAILY 5MG 3) ACETAMINOPHEN TAB PO QID PRN 500MG 4) POLYETHYLENE GLYCOL 3350 PKT POWDER,ORAL PO QDAILY PRN 1 PACKET 5) DONEPEZIL TAB PO QHS 5MG 6) QUETIAPINE TAB PO BID 50MG 7) SACUBITRIL/VALSARTAN TAB PO BID 24MG/26MG 8) TAMSULOSIN CAP,ORAL PO QPM 0.4MG 9) SENNOSIDES (OTC) TAB PO QDAILY 17.2MG 10) THIAMINE TAB PO QHS 100MG 11) MELATONIN CAP/TAB PO QHS PRN 1MG 12) METOPROLOL SUCCINATE (SUST RELEASE) PO BID 100MG Recent Labs: BASIC METABOLIC PANEL: SODIUM 137 mEq/L 11/10/2024 06:00 POTASSIUM 4.2 mEq/L 11/10/2024 06:00 CHLORIDE 104 mEq/L 11/10/2024 06:00 UREA NITROGEN 18.8 mg/dL 11/10/2024 06:00 CREATININE 0.86 mg/dL 11/10/2024 06:00 CALCIUM 9.2 mg/dL 11/10/2024 06:00 CARBON DIOXIDE 26 mEq/L 11/10/2024 06:00 GLUCOSE 100 H mg/dL 11/10/2024 06:00 EGFR (CKD-EPI 2020) 87.0 11/10/2024 06:00 WBC: 9.0 10*3/uL (11/10/24 06:00) HCT: 51.2 % H (11/10/24 06:00) HGB: HGB 16.3 g/dL 11/10/2024 06:00 Plt: PLT 252 10*3/uL 11/10/2024 06:00 ASSESSMENT/PLAN ======== 79 yo pmhx of Alzheimers dementia (AOx2 at baseline), HFrEF, Afib who initially presented to OSH for AMS and UTI now transferred to [facility] for placement. #Afib, no longer in RVR, HD stable - Home meds: metop succinate 100mg BID but at [place] switched to metop tartate 37.5 BID. Not on AC per chart review - EKG reports at [place] erson show patient still in afib - CHADVASC: 3 (HF, age) Plan: - continuous Tele - Continue Metoprolol succinate 100 BID - Will discuss with family need for AC as CHADsVASC >2, has been held due to recurrent falls in past. #Acute encephalopathy - resolved #Alzheimer dementia - AMS likely 2/2 UTI vs. hospital delirium but now back to baseline per chart reiview (resolved) - Home meds: donepezil 5mg daily - [facility] OSH: left MCA sign - Neuro consulted. Recommend doppler and Vit D/Folic/B12/TSH/UDS which were were all normal. Continued donepezil and initated on seroqel and memantine at [place]. Required IM haldol at times for severe agitation. Plan: - Continue donepezil, memantine, seroquel - Per daughter in law, patient is no longer able to live on his own - Psych consulted and found patient to be decisional in terms of discharge planning. Patient has expressed wanting to go home. Plan for patient to go to son's home on d/c with snf and home chore on discharge. - Pt/OT recommendations include 24/7 supervision - continue 1-1 sitter for elopement risk #UTI - resolved #Urinary retention s/p mendoza - OSH VSS. WBC 10. UA +LE, +blood, +WBC. No UCX. - Initiated on ceftriaxone then transitioned to cefdinir 10/20-10/26 - Bladder scans were c/f urinary retention, despite initial refusal patient eventually got a mendoza placed w/ urology to follow up outpatient. Continued on home tamsulosin. Etiology 2/2 BPH vs. medication induced. - previously failed voiding trial. Plan: - Has completed UTI tx at OSH - Continue home tamsulosin 0.4mg - Remove mendoza today and re-attempt voiding trial today, will discharge with mendoza if patient fails voiding trial again - Urology outpatient #HFrEF - Medications unclear, separate med list at [place] and home meds list. Pt not able to state what medications he is on. - Last TTE: EF of 25-30% with abnormal diastolic function, mild aortic calcifications and mild tricuspid regurgitation - [facility] meds: Metop tartrate 37.5 BID, entresto - Home meds: digoxin 0.125, metop succinate 100 daily, spironolactone 25mg daily, lasix 40mg daily - Pt euvolemic on exam Plan: - family unaware of home medications - Continue home metoprolol succinate 100 BID, entresto #Emphysema - not on home inhalers, ctm #Hx of skin cancer - ctm Code: Full Diet: regular Activity:as tolerated DVT ppx: lovenox Dispo:Home with son when medically stable and family able to recieve patient. Bree Garcia MD Neurology PGY-1 /jessica GARCIA DIP DYER Signed: 11/10/2024 16:21 /rody/ LONDON MURPHY MD Staff Physician Cosigned: 11/10/2024 17:21 11/10/2024 ADDENDUM STATUS: COMPLETED I have independently reviewed the chart, labs, and imaging and have examined the patient with the resident. I have discussed the assessment and plan with the resident and I agree with the note as documented. /rody/ LONDON MURPHY MD Staff Physician Signed: 11/10/2024 17:21 BREE GARCIA [facility] November 10, 2024 01:35 PM NURSING INPATIENT NOTE: LOCAL TITLE: [facility] NURSING FREQUENT DOCUMENTATION STANDARD TITLE: NURSING INPATIENT NOTE DATE OF NOTE: NOVEMBER 10, 2024@13:35 ENTRY DATE: NOVEMBER 10, 2024@13:35:17 AUTHOR: CLARENCE WILKINS EXP COSIGNER: URGENCY: STATUS: COMPLETED Version 2.4 Charting in accordance with [place] APPROVED RINCON STANDARD (WIAES) ACUTE INPATIENT/REHABILITATION NURSING ADMISSION SCREENING, ASSESSMENT, AND STANDARDS OF CARE BLADDER SCAN Bladder distention: Present Time Scan performed: November@13:35 Voided within 15 minutes prior to scan: Yes Initial bladder volume (ml): Urine voided (ml): Urine Amount Unmeasured: Moderate Post-void bladder volume (ml): 17 Random bladder volume(ml): Patient was NOT catheterized Post-void residual catheterization amount (ml): /es/ CLARENCE WILKINS CNA SECURITY PUBLIC SAFETY OFFICER Signed: 11/10/2024 13:38 CLARENCE WILKINS [facility] November 10, 2024 11:26 AM NURSING INPATIENT NOTE: LOCAL TITLE: [facility] ACUTE INPATIENT NSG SHIFT ASSESSMENT STANDARD TITLE: NURSING INPATIENT NOTE DATE OF NOTE: NOVEMBER 10, 2024@11:26 ENTRY DATE: NOVEMBER 10, 2024@11:27:02 AUTHOR: STELLA WALLACE EXP COSIGNER: URGENCY: STATUS: COMPLETED Version 2.2 Charting in accordance with [place] APPROVED RINCON STANDARD (WIAES) ACUTE INPATIENT/REHABILITATION NURSING ADMISSION SCREENING, ASSESSMENT, AND STANDARDS OF CARE REASSESSMENT GENITOURINARY Urinary Catheter: Type: Indwelling: Discontinue: Urethral Date/Time: November@11:20 /rody/ STELLA WALLACE REGISTERED NURSE Signed: 11/10/2024 11:29 STELLA WALLACE [facility] November 10, 2024 09:43 AM NURSING INPATIENT NOTE: LOCAL TITLE: [facility] NURSING FREQUENT DOCUMENTATION STANDARD TITLE: NURSING INPATIENT NOTE DATE OF NOTE: NOVEMBER 10, 2024@09:43 ENTRY DATE: NOVEMBER 10, 2024@09:43:16 AUTHOR: STELLA WALLACE EXP COSIGNER: URGENCY: STATUS: COMPLETED Version 2.4 Charting in accordance with [facility] RINCON STANDARD (WIAES) ACUTE INPATIENT/REHABILITATION NURSING ADMISSION SCREENING, ASSESSMENT, AND STANDARDS OF CARE NATIONAL EARLY WARNING SCORE (NEWS) The following vital measurements were used to complete the NEWS. Measurement DT TEMP PULSE RESP BP POx F(C) (L/MIN)(%) 11/10/2024 08:33 97.9(36.6) 71 18 101/68 99 The NEWS total is 1. 1. Temperature (C/F): Score = 0 36.1 - 38.0 C (96.9 - 100.4 F) 2. Pulse: Score = 0 51-90 3. Respirations: Score = 0 12-20 4. Blood Pressure (Only Systolic BP, mmHg): Score = 1 101-110 5. Pulse Oximetry: Score = 0 96% or greater 6. Supplemental oxygen in use: Score = 0 No 7. AVPU: Score = 0 Alert /es/ STELLA WALLACE REGISTERED NURSE Signed: 11/10/2024 09:43 STELLA WALLACE [facility] November 10, 2024 09:41 AM NURSING NOTE: LOCAL TITLE: [facility] SKIN INSPECTION/ASSESSMENT STANDARD TITLE: NURSING NOTE DATE OF NOTE: NOVEMBER 10, 2024@09:41 ENTRY DATE: NOVEMBER 10, 2024@09:41:56 AUTHOR: STELLA WALLACE EXP COSIGNER: URGENCY: STATUS: COMPLETED Assessment Type: SKIN REINSPECTION/REASSESSMENT SKIN INSPECTION: Skin Color: Usual for ethnicity Skin Temperature: Warm Skin Moisture: Normal Skin Turgor: Elastic (normal/immediate) Mady Skin Assessment: The patient's Mady Scale Score is 19. The patient is considered not at risk for development of pressure ulcers/injuries. Sensory perception -- ability to respond meaningfully to pressure-related discomfort Slightly limited. Moisture -- degree to which skin is exposed to moisture Rarely moist. Activity -- ability to change and control body position Walks occasionally. Mobility -- ability to change and control body position Slightly limited. Nutrition -- usual food intake patterns Adequate. Friction and shear No apparent problem. INTERVENTIONS: No change in previous interventions as listed below Pressure Ulcer-Education 11/06/2024 Educate Importance Of Changing Position Pressure Ulcer-Nutrition 11/06/2024 Encourage Eating And Assist With Meals Monitor Fluid/Food Intake Offer Liquids Q2H When Turning Offer Ordered Supplements Provide/Encourage Oral Care As Needed Tray Set Up And Assistance Pressure Ulcer-Remobilize 11/06/2024 Encourage Activity As Tolerated Vaaes Pressure Injury Interventions 11/09/2024 Vaaes Pressure Injury Int Not Needed RISK FACTORS THAT INCREASE RISK FOR DEVELOPING PRESSURE INJURIES: The patient/resident has the following: Age over 75 Device(s): (nasogastric tubes, oxygen tubing, urinary catheters, cell phone etc.) Comment: Telemetry, Mendoza SKIN ALTERATIONS: Pressure Ulcer/Injury Documentation from the past year: No data available SKIN ALTERATIONS: Wound Documentation from the past year: No data available for: Skin Integrity - Wound Skin Integrity - Wound Second Skin Integrity - Wound Third Skin Integrity - Wound Fourth Skin Integrity - Wound Fifth Skin Integrity - Wound Additional SKIN INTEGRITY: Redness and flaking to legs/feet /es/ STELLA WALLACE REGISTERED NURSE Signed: 11/10/2024 09:43 STELLA WALLACE [facility] November 10, 2024 09:35 AM NURSING INPATIENT NOTE: LOCAL TITLE: [facility] ACUTE INPATIENT NSG SHIFT ASSESSMENT STANDARD TITLE: NURSING INPATIENT NOTE DATE OF NOTE: NOVEMBER 10, 2024@09:35 ENTRY DATE: NOVEMBER 10, 2024@09:35:37 AUTHOR: STELLA WALLCAE EXP COSIGNER: URGENCY: STATUS: COMPLETED Version 2.2 Charting in accordance with [facility] RINCON STANDARD (WIAES) ACUTE INPATIENT/REHABILITATION NURSING ADMISSION SCREENING, ASSESSMENT, AND STANDARDS OF CARE ASSESSMENT HANDOFF Bedside report and handoff completed PAIN ASSESSMENT Patient's acceptable pain goal: 0 No pain Are you currently experiencing pain? No: Pain Score: 0 DESOUZA FALL SCALE & TIPS PROGRAM Desouza Fall Scale: The Desouza Fall scale was performed and score was 40. This is indicative of moderate risk for falls. History of falling: immediate or within 3 months? Yes Secondary diagnosis: No Ambulatory aid: None/bedrest/nurse assist Intravenous therapy/Heparin lock: No Gait/Transferring: Normal/bed rest/immobile Mental Status: Overestimates/forgets limitations Fall Tailoring Interventions for Patient Safety (TIPS) Fall TIPS initiated with patient: Yes Interventions: Assistance out of bed: Call for assistance before getting out of bed Fall TIPS reviewed with patient: Yes Interventions: Assistance out of bed: Call for assistance before getting out of bed ENVIRONMENTAL SAFETY MANAGEMENT Implemented safety standards of care: -Harleigh to unit & environment -Adequate room lighting -Bed in low and locked position -Call light within reach -Personal items within reach -Traffic path in room free of clutter -Non-slip footwear -Upper/half length side rails up for bed mobility -Sensory aids within reach -Encourage patient to utilize sensory support Additional safety measures: Therapeutic [place] Worker: Therapeutic/Telecare [place] Worker criteria: Change in mental status, impulsivity [place] Worker type: Unlicensed Assistive Personnel at bedside NEUROLOGICAL Neurological Orientation: Person Level of Consciousness (AVPU): Alert = Appears aware of and responsive to the environment on their own. Follows commands, opens eyes spontaneously, and tracks objects. Affect/behavior: Cooperative Comment: Easily excitable NEUROMUSCULAR/NEUROVASCULA R EXTREMITIES ASSESSMENT Strength: Gore Stitcher Bilateral: Strong Upper Extremity Bilateral: Full strength Lower Extremity Bilateral: Full strength CARDIOVASCULAR Cardiac Rhythm Analysis: Atrial Fibrillation Telemetry Transmitter Pack #: 40 Capillary Refill: All 4 extremities, less than or equal to 3 seconds. Peripheral Pulses: All 4 extremities, 3+ normal. Edema: Present Dependent Location: BLE/feet 2+ Cardiovascular - Embolism Prevention: Comment: Lovenox RESPIRATORY Respirations: Unlabored Pattern: Regular Breath Sounds Auscultated: Anterior and posterior Left Upper Lobe: Clear Right Upper Lobe: Clear Right Middle Lobe: Clear Left Lower Lobe: Clear Right Lower Lobe: Clear GASTROINTESTINAL Last bowel movement: 5/4 Elimination: Continent Abdominal Description: Rounded GENITOURINARY Elimination: Urinary catheter Voiding Difficulties: Retention Color/Characteristic: Sediment Yellow Urinary Catheter: Type: Indwelling: Assessment: Type: Urethral: Regular CAUTI Prevention Maintenance Bundle Maintained: - Maintain closed drainage system - Collecting bag below the level of the bladder and remains off the floor - Catheter and collecting tube free from kinking and remains off the floor - Collection bag regularly emptied using a separate, clean collecting container for single patient use; avoiding splashing, and no contact of the drainage spigot with the nonsterile collecting container - Daily periurethral hygiene Site Condition: No redness, pain, swelling Indications for indwelling catheter continuation discussed with: Indication(s): Acute urinary retention ========= INTEGUMENTARY/SKIN/WOUND - (INCLUDING MADY) SEE NOTE: VAAES SKIN INPECTION/ASSESSMENT ========= ACTIVITIES OF DAILY LIVING Hygiene ADLs: Pericare: Indwelling catheter present Cleansing product: Provon /es/ STELLA WALLACE REGISTERED NURSE Signed: 11/10/2024 10:48 STELLA WALLACE [facility] November 10, 2024 06:40 AM NURSING INPATIENT NOTE: LOCAL TITLE: [facility] NURSING FREQUENT DOCUMENTATION STANDARD TITLE: NURSING INPATIENT NOTE DATE OF NOTE: NOVEMBER 10, 2024@06:40 ENTRY DATE: NOVEMBER 10, 2024@06:40:53 AUTHOR: BRANDON STYLES COSIGNER: URGENCY: STATUS: COMPLETED Version 2.4 Charting in accordance with [facility] RINCON STANDARD (WIAES) ACUTE INPATIENT/REHABILITATION NURSING ADMISSION SCREENING, ASSESSMENT, AND STANDARDS OF CARE NATIONAL EARLY WARNING SCORE (NEWS) The following vital measurements were used to complete the NEWS. Measurement DT TEMP PULSE RESP BP POx F(C) (L/MIN)(%) 11/10/2024 06:21 97.8(36.6) 64 16 104/68 98 The NEWS total is 1. 1. Temperature (C/F): Score = 0 36.1 - 38.0 C (96.9 - 100.4 F) 2. Pulse: Score = 0 51-90 3. Respirations: Score = 0 12-20 4. Blood Pressure (Only Systolic BP, mmHg): Score = 1 101-110 5. Pulse Oximetry: Score = 0 96% or greater 6. Supplemental oxygen in use: Score = 0 No 7. AVPU: Score = 0 Alert CARDIAC TELEMETRY Atrial Fibrillation Comment: HR on spot check in the 90s /rody/ BRANDON STYLES BSN RN REGISTERED NURSE Signed: 11/10/2024 06:42 BRANDON STYLES [facility] November 10, 2024 04:12 AM CARDIOLOGY NOTE: LOCAL TITLE: CARDIOLOGY TELEMETRY STL STANDARD TITLE: CARDIOLOGY NOTE DATE OF NOTE: NOVEMBER 10, 2024@04:12 ENTRY DATE: NOVEMBER 10, 2024@04:12:22 AUTHOR: CATE MENJIVAR COSIGNER: URGENCY: STATUS: COMPLETED Telemetry reviewed: Atrial Fibrillation BILLING DEPARTMENT SUPERVISOR #: 40 RATE: 70s-130s SHIFT: 11-7 Shift COMMENT: /rody/ CATE MENJIVAR INSTRUCTIONAL DESIGN TECHNOLOGIST Signed: 11/10/2024 04:12 CATE MENJIVAR Katelyn [facility] November 10, 2024 02:49 AM NURSING INPATIENT NOTE: LOCAL TITLE: [facility] ACUTE INPATIENT NSG SHIFT ASSESSMENT STANDARD TITLE: NURSING INPATIENT NOTE DATE OF NOTE: NOVEMBER 10, 2024@02:49 ENTRY DATE: NOVEMBER 10, 2024@02:49:52 AUTHOR: BRANDON STYLES EXP COSIGNER: URGENCY: STATUS: COMPLETED Version 2.2 Charting in accordance with [place] APPROVED RINCON STANDARD (WIAES) ACUTE INPATIENT/REHABILITATION NURSING ADMISSION SCREENING, ASSESSMENT, AND STANDARDS OF CARE REASSESSMENT PAIN ASSESSMENT Patient's acceptable pain goal: Are you currently experiencing pain? No: ENVIRONMENTAL SAFETY MANAGEMENT Implemented safety standards of care: -[place] to unit & environment -Adequate room lighting -Bed in low and locked position -Call light within reach -Personal items within reach -Traffic path in room free of clutter -Non-slip footwear -Upper/half length side rails up for bed mobility -Sensory aids within reach -Encourage patient to utilize sensory support Additional safety measures: Close to nurses station Increased frequency of rounding Patient specific safety measures: Describe: Sitter at bedside NEUROLOGICAL Neurological Orientation: Oriented x4 Level of Consciousness (AVPU): Alert = Appears aware of and responsive to the environment on their own. Follows commands, opens eyes spontaneously, and tracks objects. Affect/behavior: Cooperative Calm NEUROMUSCULAR/NEUROVASCULA R EXTREMITIES ASSESSMENT Strength: Gore Stitcher Bilateral: Strong Upper Extremity Bilateral: Full strength Lower Extremity Bilateral: Full strength CARDIOVASCULAR Cardiac Rhythm Analysis: Atrial Fibrillation Telemetry Transmitter Pack #: 40 RESPIRATORY Respirations: Unlabored Pattern: Regular GASTROINTESTINAL Elimination: Continent GENITOURINARY Elimination: Urinary catheter Urinary Catheter: Type: Indwelling: Assessment: Type: Urethral: Regular Urethral: 2 way irrigation CAUTI Prevention Maintenance Bundle Maintained: - Maintain closed drainage system - Collecting bag below the level of the bladder and remains off the floor - Catheter and collecting tube free from kinking and remains off the floor - Collection bag regularly emptied using a separate, clean collecting container for single patient use; avoiding splashing, and no contact of the drainage spigot with the nonsterile collecting container - Daily periurethral hygiene Catheter secured: Left leg Site Condition: No redness, pain, swelling Indication(s): Acute urinary retention ========= INTEGUMENTARY/SKIN/WOUND - (INCLUDING MADY) SEE NOTE: VAAES SKIN INPECTION/ASSESSMENT ========= /rody/ BRANDON FERNANDES RN REGISTERED NURSE Signed: 11/10/2024 02:52 BRANDON STYLES [facility] November 09, 2024 11:02 PM NURSING INPATIENT NOTE: LOCAL TITLE: [facility] PATIENT SAFETY CHECK STL STANDARD TITLE: NURSING INPATIENT NOTE DATE OF NOTE: NOVEMBER 09, 2024@23:02 ENTRY DATE: NOVEMBER 09, 2024@23:02:33 AUTHOR: BRANDON STYLES EXP COSIGNER: URGENCY: STATUS: COMPLETED BEDSIDE SAFETY CHECK STL Catheters inspected:YES A visual sweep of the patient's room for any physical or environmental safety concerns was completed and education provided to patient regarding their personal safety concerns. Comment: Patient in bed, respirations even and unlabored. No distress noted. Bed in low and locked position, upper siderails up x2, call light and personal items within reach. Traffic path in room free of clutter. Patient wearing non-slip footwear. Sitter at bedside for patient safety. Patient expresses no other needs at this time. Plan of care ongoing. /jessica FERNANDES RN REGISTERED NURSE Signed: 11/09/2024 23:03 BRANDON STYLES [facility] November 09, 2024 08:22 PM NURSING INPATIENT NOTE: LOCAL TITLE: [facility] NURSING FREQUENT DOCUMENTATION STANDARD TITLE: NURSING INPATIENT NOTE DATE OF NOTE: NOVEMBER 09, 2024@20:22 ENTRY DATE: NOVEMBER 09, 2024@20:22:35 AUTHOR: BRANDON STYLES EXP COSIGNER: URGENCY: STATUS: COMPLETED Version 2.4 Charting in accordance with [place] APPROVED RINCON STANDARD (WIAES) ACUTE INPATIENT/REHABILITATION NURSING ADMISSION SCREENING, ASSESSMENT, AND STANDARDS OF CARE NATIONAL EARLY WARNING SCORE (NEWS) The following vital measurements were used to complete the NEWS. Measurement DT TEMP PULSE RESP BP POx F(C) (L/MIN)(%) 11/09/2024 19:34 98(36.7) 76 19 112/70 98 The NEWS total is 0. 1. Temperature (C/F): Score = 0 36.1 - 38.0 C (96.9 - 100.4 F) 2. Pulse: Score = 0 51-90 3. Respirations: Score = 0 12-20 4. Blood Pressure (Only Systolic BP, mmHg): Score = 0 111-219 5. Pulse Oximetry: Score = 0 96% or greater 6. Supplemental oxygen in use: Score = 0 No 7. AVPU: Score = 0 Alert /es/ BRANDON STYLES BSN RN REGISTERED NURSE Signed: 11/09/2024 20:23 BRANDON STYLES [facility] November 09, 2024 08:05 PM NURSING NOTE: LOCAL TITLE: [facility] SKIN INSPECTION/ASSESSMENT STANDARD TITLE: NURSING NOTE DATE OF NOTE: NOVEMBER 09, 2024@20:05 ENTRY DATE: NOVEMBER 09, 2024@22:55:33 AUTHOR: BRANDON STYLES EXP COSIGNER: URGENCY: STATUS: COMPLETED Assessment Type: INITIAL SKIN INSPECTION/ASSESSMENT SKIN INSPECTION: Skin Color: Usual for ethnicity Skin Temperature: Warm Skin Moisture: Normal Skin Turgor: Elastic (normal/immediate) Mady Skin Assessment: The patient's Mady Scale Score is 22. The patient is considered not at risk for development of pressure ulcers/injuries. Sensory perception -- ability to respond meaningfully to pressure-related discomfort No impairment. Moisture -- degree to which skin is exposed to moisture Rarely moist. Activity -- ability to change and control body position Walks frequently. Mobility -- ability to change and control body position No limitation. Nutrition -- usual food intake patterns Adequate. Friction and shear No apparent problem. INTERVENTIONS: The pressure injury interventions were not needed - patient/resident is not at risk. RISK FACTORS THAT INCREASE RISK FOR DEVELOPING PRESSURE INJURIES: The patient/resident has the following: Age over 75 Known vascular surgery or vascular disease Device(s): (nasogastric tubes, oxygen tubing, urinary catheters, cell phone etc.) Comment: Urinary catheter Localized abnormality: Erythema non-blanchable: Location(s): BLE /rody/ BRANDON FERNANDES RN REGISTERED NURSE Signed: 11/09/2024 22:55 BRANDON STYLES [facility] November 09, 2024 08:00 PM NURSING INPATIENT NOTE: LOCAL TITLE: [facility] ACUTE INPATIENT NSG SHIFT ASSESSMENT STANDARD TITLE: NURSING INPATIENT NOTE DATE OF NOTE: NOVEMBER 09, 2024@20:00 ENTRY DATE: NOVEMBER 09, 2024@22:52:14 AUTHOR: BRANDON STYLES EXP COSIGNER: URGENCY: STATUS: COMPLETED Version 2.2 Charting in accordance with [facility] RINCON STANDARD (WIAES) ACUTE INPATIENT/REHABILITATION NURSING ADMISSION SCREENING, ASSESSMENT, AND STANDARDS OF CARE ASSESSMENT HANDOFF Bedside report and handoff completed Safety check completed Comment: Report from PRESLEY Snell PAIN ASSESSMENT Patient's acceptable pain goal: Are you currently experiencing pain? No: DESOUZA FALL SCALE & TIPS PROGRAM Desouza Fall Scale: The Desouza Fall scale was performed and score was 15. This is indicative of low risk of falls. History of falling: immediate or within 3 months? No Secondary diagnosis: Yes Ambulatory aid: None/bedrest/nurse assist Intravenous therapy/Heparin lock: No Gait/Transferring: Normal/bed rest/immobile Mental Status: Oriented to own ability/knows own limitations Fall Tailoring Interventions for Patient Safety (TIPS) Fall TIPS initiated with patient: Yes Interventions: Communicate recent fall or risk of harm Fall TIPS reviewed with patient: Yes Interventions: Communicate recent fall or risk of harm ENVIRONMENTAL SAFETY MANAGEMENT Implemented safety standards of care: -Harleigh to unit & environment -Adequate room lighting -Bed in low and locked position -Call light within reach -Personal items within reach -Traffic path in room free of clutter -Non-slip footwear -Upper/half length side rails up for bed mobility -Sensory aids within reach -Encourage patient to utilize sensory support Additional safety measures: Close to nurses station Increased frequency of rounding Patient specific safety measures: Describe: Sitter at bedside NEUROLOGICAL Neurological Orientation: Person Time Level of Consciousness (AVPU): Alert = Appears aware of and responsive to the environment on their own. Follows commands, opens eyes spontaneously, and tracks objects. Affect/behavior: Cooperative Comment: Agitated/frustrated NEUROMUSCULAR/NEUROVASCULA R EXTREMITIES ASSESSMENT Strength: Gore Stitcher Bilateral: Strong Upper Extremity Bilateral: Full strength Lower Extremity Bilateral: Full strength CARDIOVASCULAR Heart Sounds: Normal (S1S2) Heart Rate/Rhythm (without awake overnight monitor): Irregular Cardiac Rhythm Analysis: Atrial Fibrillation Telemetry Transmitter Pack #: 40 Capillary Refill: All 4 extremities, less than or equal to 3 seconds. Peripheral Pulses: R Radial: 3+ Normal L Radial: 3+ Normal R Dorsalis Pedis: 2+ Weak L Dorsalis Pedis: 2+ Weak R Posterior Tibial: L Posterior Tibial: R Popliteal: L Popliteal: Edema: Present Generalized Location: BLE RESPIRATORY Respirations: Unlabored Pattern: Regular Breath Sounds Auscultated: Anterior only Left Upper Lobe: Clear Right Upper Lobe: Clear Right Middle Lobe: Clear Left Lower Lobe: Clear Right Lower Lobe: Clear GASTROINTESTINAL Last bowel movement: 11/09/2024 Bowel movement reported by patient-unwitnessed Elimination: Continent Abdominal Description: Rounded Palpation: Soft, Non-tender Bowel Sounds: RUQ: Active LUQ: Active RLQ: Active LLQ: Active GENITOURINARY Elimination: Urinary catheter Voiding Difficulties: Retention Color/Characteristic: Yellow Urinary Catheter: Type: Indwelling: New Insertion/Application: Date/Time of insertion: Inserted in another location/procedure Type: Urethral: Regular Urethral: 2 way irrigation Indication(s): Acute urinary retention Assessment: Type: Urethral: Regular Urethral: 2 way irrigation CAUTI Prevention Maintenance Bundle Maintained: - Maintain closed drainage system - Collecting bag below the level of the bladder and remains off the floor - Catheter and collecting tube free from kinking and remains off the floor - Collection bag regularly emptied using a separate, clean collecting container for single patient use; avoiding splashing, and no contact of the drainage spigot with the nonsterile collecting container - Daily periurethral hygiene Catheter secured: Left leg Site Condition: No redness, pain, swelling Indication(s): Acute urinary retention Per general medicine note, mendoza present on admission from OSH. ========= INTEGUMENTARY/SKIN/WOUND - (INCLUDING MADY) SEE NOTE: VAAES SKIN INPECTION/ASSESSMENT ========= ACTIVITIES OF DAILY LIVING Hygiene ADLs: Oral Care: Non-ventilator patient: Patient teeth brushed: Independently Pericare: Indwelling catheter present Cleansing product: Provon wipes MOBILITY Mobility Goal Setting: [facility] Level of Mobility: 6 - Walked 10 steps or more (walked to rust) Mobility Status: Independent: Able to stand and step without staff assistance Steady standing balance Gait: Steady IV LINES Peripheral IV: None, medicine team aware. /es/ BRANDON FERNANDES RN REGISTERED NURSE Signed: 11/09/2024 22:54 BRANDON STYLES [facility] November 09, 2024 07:41 PM CARDIOLOGY NOTE: LOCAL TITLE: CARDIOLOGY TELEMETRY STL STANDARD TITLE: CARDIOLOGY NOTE DATE OF NOTE: NOVEMBER 09, 2024@19:41 ENTRY DATE: NOVEMBER 09, 2024@19:41:20 AUTHOR: ANDRIY GUILLEN COSIGNER: URGENCY: STATUS: COMPLETED Telemetry reviewed: Atrial Fibrillation, Atrial Flutter BILLING DEPARTMENT SUPERVISOR #: 40 RATE: 70s-80s SHIFT: 3-11 Shift COMMENT: The telemetry strips were put into the patient's hard charts on the floor. /rody/ ANDRIY GUILLEN Microbiology Professor EKG Signed: 11/09/2024 19:43 ANDRIY GUILLEN [facility] November 09, 2024 07:09 PM NURSING INPATIENT NOTE: LOCAL TITLE: [facility] NURSING FREQUENT DOCUMENTATION STANDARD TITLE: NURSING INPATIENT NOTE DATE OF NOTE: NOVEMBER 09, 2024@19:09 ENTRY DATE: NOVEMBER 09, 2024@19:09:05 AUTHOR: RAHEEM ZUNIGA EXP COSIGNER: URGENCY: STATUS: COMPLETED Version 2.4 Charting in accordance with [place] APPROVED RINCON STANDARD (WIAES) ACUTE INPATIENT/REHABILITATION NURSING ADMISSION SCREENING, ASSESSMENT, AND STANDARDS OF CARE GASTROINTESTINAL Last bowel movement: 11/09/2024 Bowel movement reported by patient-unwitnessed Stool: Description: Soft Color: Amount: Large Elimination: Continent /rody/ DENA NAVA,RN REGISTERED NURSE Signed: 11/09/2024 19:10 RAHEEM ZUNIGA [facility] November 09, 2024 06:50 PM NURSING INPATIENT NOTE: LOCAL TITLE: [facility] NURSING FREQUENT DOCUMENTATION STANDARD TITLE: NURSING INPATIENT NOTE DATE OF NOTE: NOVEMBER 09, 2024@18:50 ENTRY DATE: NOVEMBER 09, 2024@18:50:50 AUTHOR: RAHEEM ZUNIGA EXP COSIGNER: URGENCY: STATUS: COMPLETED Version 2.4 Charting in accordance with [place] APPROVED RINCON STANDARD (VAAES) ACUTE INPATIENT/REHABILITATION NURSING ADMISSION SCREENING, ASSESSMENT, AND STANDARDS OF CARE ACTIVITIES OF DAILY LIVING Hygiene ADLs: Pericare: Indwelling catheter present Cleansing product: Provon wipes /rody/ DENA NAVA,RN REGISTERED NURSE Signed: 11/09/2024 18:51 RAHEEM ZUNIGA [facility] November 09, 2024 05:42 PM INTERNAL MEDICINE INPATIENT NOTE: LOCAL TITLE: MEDICINE GENERAL INPATIENT NOTE STANDARD TITLE: INTERNAL MEDICINE INPATIENT NOTE DATE OF NOTE: NOVEMBER 09, 2024@17:42 ENTRY DATE: NOVEMBER 09, 2024@17:43:11 AUTHOR: VASHTI WISEMAN MA EXP COSIGNER: POPEYE DIALLO URGENCY: STATUS: COMPLETED Called the family to update on the patient status and likely discharge tomorrow. Contacted [email or web address] at the number [phone] after failed attempt to call the son in the number listed on the records (due to a automatic call jordan). She requested the discharge to be post-poned for Sunday instead, as the furniture and house set up to receive the patient might be delivered up to Sunday. Family also request a psychotherapist social worker consult to set up homehealth for patient care support. She questioned about voiding trial and plans to remove mendoza before discharge. Will assess viability on Sunday or Sunday. /rody/ DAJUAN WISEMAN manager medical Signed: 11/09/2024 17:48 /rody/ POPEYE DIALLO MD PhD STAFF PHYSICIAN Cosigned: 11/10/2024 07:10 DAJUAN DELVALLE [facility] November 09, 2024 12:01 PM NURSING NOTE: LOCAL TITLE: VAAES SKIN INSPECTION/ASSESSMENT STANDARD TITLE: NURSING NOTE DATE OF NOTE: NOVEMBER 09, 2024@12:01 ENTRY DATE: NOVEMBER 09, 2024@12:01:29 AUTHOR: RAHEEM ZUNIGA EXP COSIGNER: URGENCY: STATUS: COMPLETED Assessment Type: SKIN REINSPECTION/REASSESSMENT SKIN INSPECTION: Skin Color: Usual for ethnicity Skin Temperature: Warm Skin Moisture: Normal Skin Turgor: Elastic (normal/immediate) Mady Skin Assessment: The patient's Mady Scale Score is 22. The patient is considered not at risk for development of pressure ulcers/injuries. Sensory perception -- ability to respond meaningfully to pressure-related discomfort No impairment. Moisture -- degree to which skin is exposed to moisture Rarely moist. Activity -- ability to change and control body position Walks frequently. Mobility -- ability to change and control body position No limitation. Nutrition -- usual food intake patterns Adequate. Friction and shear No apparent problem. INTERVENTIONS: The pressure injury interventions were not needed - patient/resident is not at risk. RISK FACTORS THAT INCREASE RISK FOR DEVELOPING PRESSURE INJURIES: The patient/resident has the following: Age over 75 Known vascular surgery or vascular disease Device(s): (nasogastric tubes, oxygen tubing, urinary catheters, cell phone etc.) Comment: mendoza Localized abnormality: Erythema non-blanchable: Location(s): LITA /rody/ DENA NAVA,RN REGISTERED NURSE Signed: 11/09/2024 12:01 RAHEEM ZUNIGA [facility] November 09, 2024 11:53 AM NURSING INPATIENT NOTE: LOCAL TITLE: [facility] ACUTE INPATIENT NSG SHIFT ASSESSMENT STANDARD TITLE: NURSING INPATIENT NOTE DATE OF NOTE: NOVEMBER 09, 2024@11:53 ENTRY DATE: NOVEMBER 09, 2024@11:54:37 AUTHOR: RAHEEM ZUNIGA EXP COSIGNER: URGENCY: STATUS: COMPLETED Version 2.2 Charting in accordance with [facility] RINCON STANDARD (WIAES) ACUTE INPATIENT/REHABILITATION NURSING ADMISSION SCREENING, ASSESSMENT, AND STANDARDS OF CARE ASSESSMENT HANDOFF Bedside report and handoff completed Safety check completed PAIN ASSESSMENT Patient's acceptable pain goal: 0 No pain Are you currently experiencing pain? No: Pain Score: 0 DESOUZA FALL SCALE & TIPS PROGRAM Desouza Fall Scale: The Desouza Fall scale was performed and score was 65. This is indicative of high risk for falls. History of falling: immediate or within 3 months? Yes Secondary diagnosis: Yes Ambulatory aid: None/bedrest/nurse assist Intravenous therapy/Heparin lock: No Gait/Transferring: Weakness Mental Status: Overestimates/forgets limitations Fall Tailoring Interventions for Patient Safety (TIPS) Fall TIPS initiated with patient: Yes Interventions: Communicate recent fall or risk of harm Toileting method: Assist to bathroom Assistance out of bed: Safe patient handling device necessary Fall TIPS reviewed with patient: Yes Interventions: Communicate recent fall or risk of harm Toileting method: Assist to bathroom Assistance out of bed: Call for assistance before getting out of bed ENVIRONMENTAL SAFETY MANAGEMENT Implemented safety standards of care: -Harleigh to unit & environment -Adequate room lighting -Bed in low and locked position -Call light within reach -Personal items within reach -Traffic path in room free of clutter -Non-slip footwear -Upper/half length side rails up for bed mobility -Sensory aids within reach -Encourage patient to utilize sensory support Additional safety measures: Therapeutic [place] P[place] Worker: Therapeutic/Telecare [place] Worker criteria: Elopement risk/wandering Fall risk; patient does NOT respond to other interventions [place] Worker type: Other: sitter NEUROLOGICAL Neurological Orientation: Person Place Level of Consciousness (AVPU): Alert = Appears aware of and responsive to the environment on their own. Follows commands, opens eyes spontaneously, and tracks objects. Affect/behavior: Cooperative Calm Evans Agitation Sedation Scale (RASS): 0 Alert and calm NEUROMUSCULAR/NEUROVASCULA R EXTREMITIES ASSESSMENT Strength: Gore Stitcher Bilateral: Strong Upper Extremity Bilateral: Full strength Lower Extremity Bilateral: Full strength Sensation: Upper Extremity Sensation Bilateral: Intact Lower Extremity Sensation Bilateral: Intact Temperature: Upper Extremity Temperature Bilateral: Warm Lower Extremity Temperature Bilateral: Warm CARDIOVASCULAR Heart Sounds: Normal (S1S2) Heart Rate/Rhythm (without awake overnight monitor): Irregular Cardiac Rhythm Analysis: Atrial Fibrillation Atrial Flutter Telemetry Transmitter Pack #: 40 Capillary Refill: All 4 extremities, less than or equal to 3 seconds. Peripheral Pulses: All 4 extremities, 3+ normal. Edema: Present Generalized Location: BLE RESPIRATORY Respirations: Unlabored Pattern: Regular Breath Sounds Auscultated: Anterior and posterior Left Upper Lobe: Clear Right Upper Lobe: Clear Right Middle Lobe: Clear Left Lower Lobe: Clear Right Lower Lobe: Clear GASTROINTESTINAL Last bowel movement: 11/08/2024 Bowel movement reported by patient-unwitnessed Elimination: Continent Abdominal Description: Rounded Palpation: Soft, Non-tender Bowel Sounds: RUQ: Active LUQ: Active RLQ: Active LLQ: Active GENITOURINARY Urinary Catheter: Type: Indwelling: Assessment: Type: Urethral: Regular CAUTI Prevention Maintenance Bundle Maintained: - Maintain closed drainage system - Collecting bag below the level of the bladder and remains off the floor - Catheter and collecting tube free from kinking and remains off the floor - Collection bag regularly emptied using a separate, clean collecting container for single patient use; avoiding splashing, and no contact of the drainage spigot with the nonsterile collecting container - Daily periurethral hygiene Catheter secured: Right leg Site Condition: No redness, pain, swelling Indications for indwelling catheter continuation discussed with: MD- chronic Indication(s): Acute urinary retention ========= INTEGUMENTARY/SKIN/WOUND - (INCLUDING MADY) SEE NOTE: VAAES SKIN INPECTION/ASSESSMENT ========= ACTIVITIES OF DAILY LIVING Hygiene ADLs: Toileting: Minimal assist MOBILITY Mobility Status: Minimum assist: Stands with support only (Unsteady or requires verbal cueing) Gait: Steady PSYCHOSOCIAL Type of Emotional Support Provided: 1:1 discussion, Ventilation of feelings encouraged /rody/ DENA NAVA,RN REGISTERED NURSE Signed: 11/09/2024 12:01 RAHEEM ZUNIGA [facility] November 09, 2024 09:13 AM CARDIOLOGY NOTE: LOCAL TITLE: CARDIOLOGY TELEMETRY STL STANDARD TITLE: CARDIOLOGY NOTE DATE OF NOTE: NOVEMBER 09, 2024@09:13 ENTRY DATE: NOVEMBER 09, 2024@09:13:49 AUTHOR: MEG WRIGHT EXP COSIGNER: URGENCY: STATUS: COMPLETED Telemetry reviewed: Atrial Flutter BILLING DEPARTMENT SUPERVISOR #: 40 RATE: 70s-90s SHIFT: 7-3 Shift COMMENT: taylor/ MEG WRIGHT Microbiology Professor-EKG Signed: 11/09/2024 09:15 MEG WRIGHT [facility] November 09, 2024 07:24 AM INTERNAL MEDICINE INPATIENT NOTE: LOCAL TITLE: MEDICINE GENERAL INPATIENT NOTE STANDARD TITLE: INTERNAL MEDICINE INPATIENT NOTE DATE OF NOTE: NOVEMBER 09, 2024@07:24 ENTRY DATE: NOVEMBER 09, 2024@07:24:45 AUTHOR: VASHTI WISEMAN MA EXP COSIGNER: POPEYE DIALLO URGENCY: STATUS: COMPLETED MEDICINE GENERAL INPATIENT NOTE Has ADDENDA Internal Medicine Daily Progress Note 79 year old MALE admitted on Oct 18:42 Last Admission: 11/05/24 6:42:14 pm Admit Dx: AMS. ##### SUBJECTIVE ##### Interval History: - Patient had no acute events overnight. Telemetry showing AFib/Aflutter with HR 80s-120s on tele. No pain, LBM yesterday, twice, complains of difficulty sleeping but doesn't reporte any somnolence today. Hospital Course: 79 yo pmhx of Alzheimers dementia (AOx2 at baseline), HFrEF, Afib, emphysema, hx of skin cancer coming in as OSH transfer from [facility] for intial concern of acute encephalopathy and UTI.Transferred to [facility] for assistance with placement. On arrival to [facility], VSS. Pt is AOx2 (at baseline). Patient does not have understanding as to why he is currently in the hospital. During admission, patient noted ot be in a-fib rvr, no IV access and was given PO metoprolol. Metoprolol Tartrate changed to 37.5 mg Q6h for rate control. Patient's metoprolol tartrate increased to 50mg q6h with HR between 80-120, and Afib/Aflutter. ##### OBJECTIVE ##### ACTIVE INTPATIENT MEDS: 1) ENOXAPARIN INJ SQ QDAILY 2) MEMANTINE TAB PO DAILY 5MG 3) ACETAMINOPHEN TAB PO QID PRN 500MG 4) POLYETHYLENE GLYCOL 3350 PKT POWDER,ORAL PO QDAILY PRN 1 PACKET 5) DONEPEZIL TAB PO QHS 5MG 6) QUETIAPINE TAB PO BID 50MG 7) SACUBITRIL/VALSARTAN TAB PO BID 24MG/26MG 8) TAMSULOSIN CAP,ORAL PO QPM 0.4MG 9) SENNOSIDES (OTC) TAB PO QDAILY 17.2MG 10) THIAMINE TAB PO QHS 100MG 11) MELATONIN CAP/TAB PO QHS PRN 1MG 12) METOPROLOL TARTRATE (IMMEDIATE PO Q6H 50MG ACTIVE OUTPATIENT MEDS: Active Outpatient Medications (including Supplies): No Medications Found Allergies/Adverse Drug Reactions: SUDAFED, PENICILLIN, ANTIHISTAMINE NASAL DECONGEST, DARVOCET-N Vital Signs: Pulse: 88 (11/09/2024 05:18) BP: 135/88 (11/09/2024 05:18) RESP: 18 (11/09/2024 05:18) Pain: 0 (11/09/2024 05:18) Weight: 209.5 lb [95.03 kg] (11/09/2024 05:18) PHYSICAL EXAM: General:AOx2, not in acute distress Head: normocephalic, atraumatic, skin colored rash/ patch on anterior forehead- oily CV: normal rate, irregular rhythm Resp: clear to auscultation Abd: nondistended, nontender, normoactive bowel sounds : mendoza in place Extremities: chronic skin changes noted on b/l LE with some darkening of skin with mild edema Neuro: AOx2, mild aggitation, no focal deficits Notable Laboratory Findings: WBC 10.1 10*3/uL 11/08/2024 06:00 RBC 5.77 H 10*6/uL 11/08/2024 06:00 HGB 16.3 g/dL 11/08/2024 06:00 HCT 50.1 H % 11/08/2024 06:00 MCV 86.8 fL 11/08/2024 06:00 MCH 28.2 pg 11/08/2024 06:00 MCHC 32.5 L g/dL 11/08/2024 06:00 RDW 15.2 H % 11/08/2024 06:00 PLT 284 10*3/uL 11/08/2024 06:00 MPV 10.3 fL 11/08/2024 06:00 NEUTROPHILS, AUTO % 66 % 11/08/2024 06:00 LYMPHOCYTES, AUTO % 18 % 11/08/2024 06:00 MONOCYTES, AUTO % 9 % 11/08/2024 06:00 EOSINOPHILS, AUTO % 6 % 11/08/2024 06:00 BASOPHILS, AUTO % 1 % 11/08/2024 06:00 NEUTROPHILS, ABSOLUTE 6.67 10*3/uL 11/08/2024 06:00 LYMPHOCYTES, ABSOLUTE 1.82 10*3/uL 11/08/2024 06:00 MONOCYTES, ABSOLUTE 0.85 H 10*3/uL 11/08/2024 06:00 EOSINOPHILS, ABSOLUTE 0.56 10*3/uL 11/08/2024 06:00 BASOPHILS, ABSOLUTE 0.09 10*3/uL 11/08/2024 06:00 NEUTROPHILS 76.3 % 11/07/2024 06:00 LYMPHOCYTES 7.9 % 11/07/2024 06:00 MONOCYTES 7.0 % 11/07/2024 06:00 EOSINOPHILS 3.5 % 11/07/2024 06:00 BASOPHILS 1.8 % 11/07/2024 06:00 ATYPICAL LYMPHOCYTES 3.5 % 11/07/2024 06:00 SODIUM 137 mEq/L 11/08/2024 06:00 POTASSIUM 4.4 mEq/L 11/08/2024 06:00 CHLORIDE 103 mEq/L 11/08/2024 06:00 UREA NITROGEN 17.8 mg/dL 11/08/2024 06:00 CREATININE 0.86 mg/dL 11/08/2024 06:00 CALCIUM 8.9 mg/dL 11/08/2024 06:00 PROTEIN 6.4 g/dL 11/05/2024 20:34 ALBUMIN 3.6 g/dL 11/08/2024 06:00 ALKALINE PHOSPHATASE 72 U/L 11/05/2024 20:34 ALT/SGPT 23 U/L 11/05/2024 20:34 AST/SGOT 30 U/L 11/05/2024 20:34 TOTAL BILIRUBIN 0.5 mg/dL 11/05/2024 20:34 CARBON DIOXIDE 26 mEq/L 11/08/2024 06:00 GLUCOSE 141 H mg/dL 11/08/2024 06:00 EGFR (CKD-EPI 2020) 87.0 11/08/2024 06:00 1.9 mg/dL (11/08/24 06:00) PHOSPHOROUS 3.2 mg/dL 11/08/2024 06:00 BMP: SODIUM 137 mEq/L 11/08/2024 06:00 POTASSIUM 4.4 mEq/L 11/08/2024 06:00 CHLORIDE 103 mEq/L 11/08/2024 06:00 UREA NITROGEN 17.8 mg/dL 11/08/2024 06:00 CREATININE 0.86 mg/dL 11/08/2024 06:00 CALCIUM 8.9 mg/dL 11/08/2024 06:00 CARBON DIOXIDE 26 mEq/L 11/08/2024 06:00 GLUCOSE 141 H mg/dL 11/08/2024 06:00 EGFR (CKD-EPI 2020) 87.0 11/08/2024 06:00 Hepatic Panel: No data available No GLUCOSE,BLOOD-poct (STL) data found No HEMOGLOBIN A1C EO data found Cardiac Enzymes ____ No TROPONIN EO data found TSH: No TSH (2YR) EO data found IMAGING: No data available ##### ASSESSMENT AND PLAN ##### Assessment/Plan: 79 yo pmhx of Alzheimers dementia (AOx2 at baseline), HFrEF, Afib who initially presented to OSH for AMS and UTI now transferred to [facility] for placement. #Afib, no longer in RVR, HD stable - Home meds: metop succinate 100mg BID but at [place] switched to metop tartate 37.5 BID. Not on AC per chart review - EKG reports at [place] erson show patient still in afib - CHADVASC: 3 (HF, age) Plan: - continuous Tele - Changed metoprolol to succinate 100 BID - Consider discharge tomorrow - Will discuss with family need for AC as CHADsVASC >2, has been held due to recurrent falls #Acute encephalopathy - resolved #Alzheimer dementia - AMS likely 2/2 UTI vs. hospital delirium but now back to baseline per chart reiview (resolved) - Home meds: donepezil 5mg daily - [facility] OSH: left MCA sign - Neuro consulted. Recommend doppler and Vit D/Folic/B12/TSH/UDS which were were all normal. Continued donepezil and initated on seroqel and memantine at [place]. Required IM haldol at times for severe agitation. Plan: - Continue donepezil, memantine, seroquel - Per daughter in law, patient is no longer able to live on his own - Psych consulted and found patient to be decisional in terms of discharge planning. Patient has expressed wanting to go home. Plan for patient to go to son's home on d/c - Pt/OT recommendations include 29/01 supervision - continue 1-1 sitter for elopement risk #UTI - resolved #Urinary retention s/p mendoza - OSH VSS. WBC 10. UA +LE, +blood, +WBC. No UCX. - Initiated on ceftriaxone then transitioned to cefdinir 10/20-10/26 - Bladder scans were c/f urinary retention, despite initial refusal patient eventually got a mendoza placed (still present on arrival here) w/ urology to follow up outpatient. Continued on home tamsulosin. Etiology 2/2 BPH vs. medication induced. Plan: - Has completed UTI tx at OSH - Continue home tamsulosin 0.4mg - Continue mendoza, will discharge with mendoza as patient failed voiding trial at OSH - Urology outpatient #HFrEF - Medications unclear, separate med list at [place] and home meds list. Pt not able to state what medications he is on. - Last TTE: EF of 25-30% with abnormal diastolic function, mild aortic calcifications and mild tricuspid regurgitation - [facility] meds: Metop tartrate 37.5 BID, entresto - Home meds: digoxin 0.125, metop succinate 100 daily, spironolactone 25mg daily, lasix 40mg daily - Pt euvolemic on exam Plan: - family unaware of home medications - Continue home metoprolol succinate 100 BID, entresto #Emphysema - not on home inhalers, ctm #Hx of skin cancer - ctm Code: Full Diet: Regular diet DVT: lovenox daily Dispo: d/c to Son's home Patient was seen and discussed with Dr. Diallo. Dajuan Nobles MD PGY-1 Internal Medicine /rody/ DAJUAN WISEMAN manager medical Signed: 11/09/2024 14:01 /rody/ POPEYE DIALLO MD PhD STAFF PHYSICIAN Cosigned: 11/10/2024 07:14 11/10/2024 ADDENDUM STATUS: COMPLETED The was seen, examined, and discussed at length with the resident physician. Relevant labs, imaging studies, and past medical records were reviewed. I agree with the assessment and plan as described in the resident's note. /rody/ POPEYE DIALLO MD PhD STAFF PHYSICIAN Signed: 11/10/2024 07:15 DAJUAN DELVALLE [facility] November 09, 2024 05:47 AM NURSING INPATIENT NOTE: LOCAL TITLE: [facility] NURSING FREQUENT DOCUMENTATION STANDARD TITLE: NURSING INPATIENT NOTE DATE OF NOTE: NOVEMBER 09, 2024@05:47 ENTRY DATE: NOVEMBER 09, 2024@05:47:57 AUTHOR: BRANDON STYLES EXP COSIGNER: URGENCY: STATUS: COMPLETED Version 2.4 Charting in accordance with [place] APPROVED RINCON STANDARD (WIAES) ACUTE INPATIENT/REHABILITATION NURSING ADMISSION SCREENING, ASSESSMENT, AND STANDARDS OF CARE NATIONAL EARLY WARNING SCORE (NEWS) The following vital measurements were used to complete the NEWS. Measurement DT TEMP PULSE RESP BP POx F(C) (L/MIN)(%) 11/09/2024 05:18 97.8(36.6) 88 18 135/88 98 The NEWS total is 0. 1. Temperature (C/F): Score = 0 36.1 - 38.0 C (96.9 - 100.4 F) 2. Pulse: Score = 0 51-90 3. Respirations: Score = 0 12-20 4. Blood Pressure (Only Systolic BP, mmHg): Score = 0 111-219 5. Pulse Oximetry: Score = 0 96% or greater 6. Supplemental oxygen in use: Score = 0 No 7. AVPU: Score = 0 Alert CARDIAC TELEMETRY Atrial Fibrillation Comment: HR on spot check in the 80s /es/ BRANDON FERNANDES RN REGISTERED NURSE Signed: 11/09/2024 05:48 BRANDON STYLES [facility] November 09, 2024 04:07 AM NURSING INPATIENT NOTE: LOCAL TITLE: [facility] ACUTE INPATIENT NSG SHIFT ASSESSMENT STANDARD TITLE: NURSING INPATIENT NOTE DATE OF NOTE: NOVEMBER 09, 2024@04:07 ENTRY DATE: NOVEMBER 09, 2024@04:07:25 AUTHOR: BRANDON STYLES EXP COSIGNER: URGENCY: STATUS: COMPLETED Version 2.2 Charting in accordance with [facility] RINCON STANDARD (WIAES) ACUTE INPATIENT/REHABILITATION NURSING ADMISSION SCREENING, ASSESSMENT, AND STANDARDS OF CARE REASSESSMENT PAIN ASSESSMENT Patient's acceptable pain goal: Are you currently experiencing pain? No: ENVIRONMENTAL SAFETY MANAGEMENT Implemented safety standards of care: -Harleigh to unit & environment -Adequate room lighting -Bed in low and locked position -Call light within reach -Personal items within reach -Traffic path in room free of clutter -Non-slip footwear -Upper/half length side rails up for bed mobility -Sensory aids within reach -Encourage patient to utilize sensory support Additional safety measures: Close to nurses station Increased frequency of rounding Patient specific safety measures: Describe: Sitter at bedside NEUROLOGICAL Neurological Orientation: Oriented x4 Level of Consciousness (AVPU): Alert = Appears aware of and responsive to the environment on their own. Follows commands, opens eyes spontaneously, and tracks objects. Affect/behavior: Cooperative Calm NEUROMUSCULAR/NEUROVASCULA R EXTREMITIES ASSESSMENT Strength: Gore Stitcher Bilateral: Strong Upper Extremity Bilateral: Full strength Lower Extremity Bilateral: Full strength CARDIOVASCULAR Cardiac Rhythm Analysis: Atrial Fibrillation Telemetry Transmitter Pack #: 40 Edema: Present Generalized Location: BLE RESPIRATORY Respirations: Unlabored Pattern: Regular GASTROINTESTINAL Elimination: Continent GENITOURINARY Elimination: Urinary catheter Voiding Difficulties: Retention Color/Characteristic: Yellow Urinary Catheter: Type: Indwelling: Assessment: Type: Urethral: Regular Urethral: 2 way irrigation CAUTI Prevention Maintenance Bundle Maintained: - Maintain closed drainage system - Collecting bag below the level of the bladder and remains off the floor - Catheter and collecting tube free from kinking and remains off the floor - Collection bag regularly emptied using a separate, clean collecting container for single patient use; avoiding splashing, and no contact of the drainage spigot with the nonsterile collecting container - Daily periurethral hygiene Catheter secured: Left leg Site Condition: No redness, pain, swelling Indication(s): Acute urinary retention ========= INTEGUMENTARY/SKIN/WOUND - (INCLUDING MADY) SEE NOTE: VAAES SKIN INPECTION/ASSESSMENT ========= /rody/ BRANDON STYLES BSN RN REGISTERED NURSE Signed: 11/09/2024 04:09 BRANDON STYLES [facility] November 09, 2024 01:02 AM CARDIOLOGY NOTE: LOCAL TITLE: CARDIOLOGY TELEMETRY STL STANDARD TITLE: CARDIOLOGY NOTE DATE OF NOTE: NOVEMBER 09, 2024@01:02 ENTRY DATE: NOVEMBER 09, 2024@01:02:42 AUTHOR: CATE MENJIVAR EXP COSIGNER: URGENCY: STATUS: COMPLETED Telemetry reviewed: Atrial Fibrillation, Atrial Flutter BILLING DEPARTMENT SUPERVISOR #: 40 RATE: 80s-120s SHIFT: 11-7 Shift COMMENT: /jessica MENJIVAR INSTRUCTIONAL DESIGN TECHNOLOGIST Signed: 11/09/2024 01:03 CATE MENJIVAR [facility] November 08, 2024 11:35 PM NURSING INPATIENT NOTE: LOCAL TITLE: [facility] PATIENT SAFETY CHECK STL STANDARD TITLE: NURSING INPATIENT NOTE DATE OF NOTE: NOVEMBER 08, 2024@23:35 ENTRY DATE: NOVEMBER 08, 2024@23:36:03 AUTHOR: BRANDON STYLES EXP COSIGNER: URGENCY: STATUS: COMPLETED BEDSIDE SAFETY CHECK STL Catheters inspected:YES A visual sweep of the patient's room for any physical or environmental safety concerns was completed and education provided to patient regarding their personal safety concerns. Comment: Patient in bed, respirations even and unlabored. No distress noted. Bed in low and locked position, upper siderails up x2, call light and personal items within reach. Traffic path in room free of clutter. Patient wearing non-slip footwear. Patient expresses no other needs at this time. Plan of care ongoing. /rody/ BRANDON FERNANDES RN REGISTERED NURSE Signed: 11/08/2024 23:36 BRANDON STYLES [facility] November 08, 2024 10:51 PM NURSING NOTE: LOCAL TITLE: [facility] PROGRESS NOTE STL STANDARD TITLE: NURSING NOTE DATE OF NOTE: NOVEMBER 08, 2024@22:51 ENTRY DATE: NOVEMBER 08, 2024@22:51:43 AUTHOR: BRANDON STYLES COSIGNER: URGENCY: STATUS: COMPLETED Spoke with son, Martin Vann, around 2014. Son informed RN that he would like cong psyche or neurology to evaluated patient's decision making capacity. Son has stated he has made this request in the past and states Why is no one listening to me? Son agitated but does state that since being transferred to [facility], this is the best care his father has gotten in the last 8 weeks. Assured son that I would send primary hospital team a message with request for cong psyche or neurology to see patient and would note this in the chart. Also informed son that primary hospital team would be in around 0730 in the morning and he could call then and ask to speak with them. Will also notify team that son would like to speak about patient plan of care. Message sent to Jayda Whatley via TEAMS. /rody/ BRANDON FERNANDES RN REGISTERED NURSE Signed: 11/08/2024 22:58 BRANDON STYLES [facility] November 08, 2024 08:50 PM NURSING NOTE: LOCAL TITLE: BRANDENAES SKIN INSPECTION/ASSESSMENT STANDARD TITLE: NURSING NOTE DATE OF NOTE: NOVEMBER 08, 2024@20:50 ENTRY DATE: NOVEMBER 09, 2024@02:05:13 AUTHOR: BRANDON STYLESIGNER: URGENCY: STATUS: COMPLETED Assessment Type: INITIAL SKIN INSPECTION/ASSESSMENT SKIN INSPECTION: Skin Color: Usual for ethnicity Skin Temperature: Warm Skin Moisture: Normal Skin Turgor: Elastic (normal/immediate) Mady Skin Assessment: The patient's Mady Scale Score is 22. The patient is considered not at risk for development of pressure ulcers/injuries. Sensory perception -- ability to respond meaningfully to pressure-related discomfort No impairment. Moisture -- degree to which skin is exposed to moisture Rarely moist. Activity -- ability to change and control body position Walks frequently. Mobility -- ability to change and control body position No limitation. Nutrition -- usual food intake patterns Adequate. Friction and shear No apparent problem. INTERVENTIONS: The pressure injury interventions were not needed - patient/resident is not at risk. RISK FACTORS THAT INCREASE RISK FOR DEVELOPING PRESSURE INJURIES: The patient/resident has the following: Age over 75 Known vascular surgery or vascular disease Device(s): (nasogastric tubes, oxygen tubing, urinary catheters, cell phone etc.) Comment: Urinary catheter Localized abnormality: Erythema non-blanchable: Location(s): BLE /es/ BRANDON STYLES BSN RN REGISTERED NURSE Signed: 11/09/2024 02:06 BRANDON STYLES [facility] November 08, 2024 08:46 PM NURSING INPATIENT NOTE: LOCAL TITLE: [facility] NURSING FREQUENT DOCUMENTATION STANDARD TITLE: NURSING INPATIENT NOTE DATE OF NOTE: NOVEMBER 08, 2024@20:46 ENTRY DATE: NOVEMBER 08, 2024@20:47:08 AUTHOR: BRANDON STYLES EXP COSIGNER: URGENCY: STATUS: COMPLETED [facility] NURSING FREQUENT DOCUMENTATION Has ADDENDA Version 2.4 Charting in accordance with [place] APPROVED RINCON STANDARD (WIAES) ACUTE INPATIENT/REHABILITATION NURSING ADMISSION SCREENING, ASSESSMENT, AND STANDARDS OF CARE NATIONAL EARLY WARNING SCORE (NEWS) The following vital measurements were used to complete the NEWS. Measurement DT TEMP PULSE RESP BP POx F(C) (L/MIN)(%) 11/08/2024 19:53 97.8(36.6) 130 18 140/107 99 The NEWS total is 2. 1. Temperature (C/F): Score = 0 36.1 - 38.0 C (96.9 - 100.4 F) 2. Pulse: Score = 2 111-130 3. Respirations: Score = 0 12-20 4. Blood Pressure (Only Systolic BP, mmHg): Score = 0 111-219 5. Pulse Oximetry: Score = 0 96% or greater 6. Supplemental oxygen in use: Score = 0 No 7. AVPU: Score = 0 Alert PROVIDER NOTIFICATION Provider Name: Med II night resident, Nury Ramirez Notification Reason: Other: Per telemetry, patient HR in the 130s. Patient is slightly agitated and pacing around room, wanting to go home. Also informed of patient recent BP. Per MD, if patient trying to leave, MD will come evaluate and to call again if patient has been resting and HR is still in the 130s or above. Will continue to monitor. /rody/ BRANDON FERNANDES RN REGISTERED NURSE Signed: 11/08/2024 20:58 11/08/2024 ADDENDUM STATUS: COMPLETED MD called again around 2130 and request made by RN to give 2300 metoprolol early d/t HR in the 130s while patient at rest. Patient asymptomatic, still agitated. Request granted. MD called around 2230, patient still at rest and HR in the 120s-low 130s while sitting in chair. Still asymptomatic. New orders to follow. Will continue to monitor. /jessica FERNANDES RN REGISTERED NURSE Signed: 11/08/2024 22:51 11/08/2024 ADDENDUM STATUS: COMPLETED Called Med II night resident, Nury Ramirez. Patient currently in the 80s-90s, irregular rate on telemetry. Will continue to monitor. /jessica FERNANDES RN REGISTERED NURSE Signed: 11/08/2024 23:34 BRANDON STYLES [facility] November 08, 2024 08:45 PM NURSING INPATIENT NOTE: LOCAL TITLE: WIAES ACUTE INPATIENT NSG SHIFT ASSESSMENT STANDARD TITLE: NURSING INPATIENT NOTE DATE OF NOTE: NOVEMBER 08, 2024@20:45 ENTRY DATE: NOVEMBER 09, 2024@01:53:30 AUTHOR: BRANDON STYLES COSIGNER: URGENCY: STATUS: COMPLETED Version 2.2 Charting in accordance with [facility] RINCON STANDARD (WIAES) ACUTE INPATIENT/REHABILITATION NURSING ADMISSION SCREENING, ASSESSMENT, AND STANDARDS OF CARE ASSESSMENT HANDOFF Bedside report and handoff completed Safety check completed Comment: Report from Renetta, RN PAIN ASSESSMENT Patient's acceptable pain goal: Are you currently experiencing pain? No: DESOUZA FALL SCALE & TIPS PROGRAM Desouza Fall Scale: The Desouza Fall scale was performed and score was 15. This is indicative of low risk of falls. History of falling: immediate or within 3 months? No Secondary diagnosis: Yes Ambulatory aid: None/bedrest/nurse assist Intravenous therapy/Heparin lock: No Gait/Transferring: Normal/bed rest/immobile Mental Status: Oriented to own ability/knows own limitations Fall Tailoring Interventions for Patient Safety (TIPS) Fall TIPS initiated with patient: Yes Interventions: Communicate recent fall or risk of harm Fall TIPS reviewed with patient: Yes Interventions: Communicate recent fall or risk of harm ENVIRONMENTAL SAFETY MANAGEMENT Implemented safety standards of care: -Harleigh to unit & environment -Adequate room lighting -Bed in low and locked position -Call light within reach -Personal items within reach -Traffic path in room free of clutter -Non-slip footwear -Upper/half length side rails up for bed mobility -Sensory aids within reach -Encourage patient to utilize sensory support Additional safety measures: Close to nurses station Increased frequency of rounding Patient specific safety measures: Describe: Sitter at bedside NEUROLOGICAL Neurological Orientation: Person Time Level of Consciousness (AVPU): Alert = Appears aware of and responsive to the environment on their own. Follows commands, opens eyes spontaneously, and tracks objects. Affect/behavior: Cooperative Comment: Agitated/frustrated NEUROMUSCULAR/NEUROVASCULA R EXTREMITIES ASSESSMENT Strength: Gore Stitcher Bilateral: Strong Upper Extremity Bilateral: Full strength Lower Extremity Bilateral: Full strength CARDIOVASCULAR Heart Sounds: Normal (S1S2) Heart Rate/Rhythm (without awake overnight monitor): Tachycardia Cardiac Rhythm Analysis: Sinus Tachycardia Telemetry Transmitter Pack #: 40 Capillary Refill: All 4 extremities, less than or equal to 3 seconds. Peripheral Pulses: R Radial: 3+ Normal L Radial: 3+ Normal R Dorsalis Pedis: 2+ Weak L Dorsalis Pedis: 2+ Weak R Posterior Tibial: L Posterior Tibial: R Popliteal: L Popliteal: Edema: Present Generalized Location: BLE RESPIRATORY Respirations: Unlabored Pattern: Regular Breath Sounds Auscultated: Anterior only Left Upper Lobe: Clear Right Upper Lobe: Clear Right Middle Lobe: Clear Left Lower Lobe: Clear Right Lower Lobe: Clear GASTROINTESTINAL Last bowel movement: 11/08/2024 Bowel movement reported by patient-unwitnessed Elimination: Continent Abdominal Description: Rounded Palpation: Soft, Non-tender Bowel Sounds: RUQ: Active LUQ: Active RLQ: Active LLQ: Active GENITOURINARY Elimination: Urinary catheter Voiding Difficulties: Retention Color/Characteristic: Yellow Urinary Catheter: Type: Indwelling: New Insertion/Application: Date/Time of insertion: Inserted in another location/procedure Type: Urethral: Regular Urethral: 2 way irrigation Indication(s): Acute urinary retention Assessment: Type: Urethral: Regular Urethral: 2 way irrigation CAUTI Prevention Maintenance Bundle Maintained: - Maintain closed drainage system - Collecting bag below the level of the bladder and remains off the floor - Catheter and collecting tube free from kinking and remains off the floor - Collection bag regularly emptied using a separate, clean collecting container for single patient use; avoiding splashing, and no contact of the drainage spigot with the nonsterile collecting container - Daily periurethral hygiene Catheter secured: Left leg Site Condition: No redness, pain, swelling Indication(s): Acute urinary retention Per general medicine note, mendzoa present on admission from [facility]. ========= INTEGUMENTARY/SKIN/WOUND - (INCLUDING MADY) SEE NOTE: VAAES SKIN INPECTION/ASSESSMENT ========= ACTIVITIES OF DAILY LIVING Hygiene ADLs: Oral Care: Non-ventilator patient: Patient teeth brushed: Independently Pericare: Indwelling catheter present Cleansing product: Provon wipes MOBILITY Mobility Goal Setting: [facility] Level of Mobility: 6 - Walked 10 steps or more (walked to restroom) Mobility Status: Independent: Able to stand and step without staff assistance Steady standing balance Gait: Steady IV LINES Peripheral IV: None, medicine team aware. /es/ BRANDON FERNANDES RN REGISTERED NURSE Signed: 11/09/2024 02:04 BRANDON STYLES [facility] November 08, 2024 08:31 PM CARDIOLOGY NOTE: LOCAL TITLE: CARDIOLOGY TELEMETRY ST STANDARD TITLE: CARDIOLOGY NOTE DATE OF NOTE: NOVEMBER 08, 2024@20:31 ENTRY DATE: NOVEMBER 08, 2024@20:31:50 AUTHOR: ANDRIY GUILLEN COSIGNER: URGENCY: STATUS: COMPLETED Telemetry reviewed: Atrial Flutter 2:1 BILLING DEPARTMENT SUPERVISOR #: 40 RATE: 90s-140s SHIFT: 3-11 Shift COMMENT: PRESLEY Mcintyre was notified @4747 of 2:1 A-Flutter HR sustaining in 140s for 15 minutes and then after a a few minutes HR started up sustaining again with HR 130s-140s and PRESLEY Mcintyre was notified agan @3757. PRESLEY Cooper was left a [employer] message @2029 that HR was still high in 130s. The telemetry strips were put into the Patient's hard charts on the floor. /rody/ ANDRIY GUILLEN Microbiology Professor EKG Signed: 11/08/2024 20:44 ANDRIY GUILLEN [facility] November 08, 2024 06:56 PM NURSING INPATIENT NOTE: LOCAL TITLE: [facility] NURSING FREQUENT DOCUMENTATION STANDARD TITLE: NURSING INPATIENT NOTE DATE OF NOTE: NOVEMBER 08, 2024@18:56 ENTRY DATE: NOVEMBER 08, 2024@18:56:20 AUTHOR: ELDON PATRICKIGNER: URGENCY: STATUS: COMPLETED Version 2.4 Charting in accordance with [place] APPROVED RINCON STANDARD (WIAES) ACUTE INPATIENT/REHABILITATION NURSING ADMISSION SCREENING, ASSESSMENT, AND STANDARDS OF CARE ACTIVITIES OF DAILY LIVING Hygiene ADLs: Dressing: Upper Body: Independent Upper Body: Minimal assist Lower Body: Independent Lower Body: Minimal assist Eating: Independent Hand Hygiene: Performed post toileting Oral Care: Non-ventilator patient: The was educated that poor oral hygiene increases the risk of hospital acquired pneumonia and dental problems like gingivitis and tooth decay. Marcus was educated using their preferred method and verbalized understanding. Pericare: Indwelling catheter present Cleansing product: provon wipes Toileting: Independent Minimal assist ACTIVITY/MOBILIZATION [facility] - Highest Level of Mobility achieved this shift: 6 - Walked 10 steps or more (walked to restroom) ENVIRONMENTAL SAFETY MANAGEMENT Implemented safety standards of care: -Harleigh to unit & environment -Adequate room lighting -Bed in low and locked position -Call light within reach -Personal items within reach -Traffic path in room free of clutter -Non-slip footwear -Upper/half length side rails up for bed mobility -Sensory aids within reach -Encourage patient to utilize sensory support GASTROINTESTINAL Last bowel movement: 11/08/2024 Elimination: Continent GENITOURINARY Elimination: Urinary catheter Urinary Catheter: Type: Indwelling: ORAL INTAKE (PERCENTAGE OF MEAL EATEN) Breakfast: 76% - 100% Lunch: 76% - 100% Dinner: 76% - 100% /rody/ ELDON PATRICK CNA SECURITY PUBLIC SAFETY OFFICER Signed: 11/08/2024 18:58 ELDON PATRICK [facility] November 08, 2024 11:42 AM CARDIOLOGY NOTE: LOCAL TITLE: CARDIOLOGY TELEMETRY STL STANDARD TITLE: CARDIOLOGY NOTE DATE OF NOTE: NOVEMBER 08, 2024@11:42 ENTRY DATE: NOVEMBER 08, 2024@11:42:43 AUTHOR: JONO MOON EXP COSIGNER: URGENCY: STATUS: COMPLETED Telemetry reviewed: Atrial Fibrillation, Atrial Flutter BILLING DEPARTMENT SUPERVISOR #: 40 RATE: 70's SHIFT: 7-3 Shift COMMENT: /es/ JONO MOON JR. MEDICAL SENIOR ACCOUNT CLERK Signed: 11/08/2024 11:43 JONO MOON [facility] November 08, 2024 09:02 AM NURSING INPATIENT NOTE: LOCAL TITLE: [facility] NURSING FREQUENT DOCUMENTATION STANDARD TITLE: NURSING INPATIENT NOTE DATE OF NOTE: NOVEMBER 08, 2024@09:02 ENTRY DATE: NOVEMBER 08, 2024@09:02:28 AUTHOR: RENETTA GIMENEZ EXP COSIGNER: URGENCY: STATUS: COMPLETED Version 2.4 Charting in accordance with [place] APPROVED RINCON STANDARD (WIAES) ACUTE INPATIENT/REHABILITATION NURSING ADMISSION SCREENING, ASSESSMENT, AND STANDARDS OF CARE NATIONAL EARLY WARNING SCORE (NEWS) The following vital measurements were used to complete the NEWS. Measurement DT TEMP PULSE RESP BP POx F(C) (L/MIN)(%) 11/08/2024 08:38 98.1(36.7) 81 20 126/82 97 The NEWS total is 0. 1. Temperature (C/F): Score = 0 36.1 - 38.0 C (96.9 - 100.4 F) 2. Pulse: Score = 0 51-90 3. Respirations: Score = 0 12-20 4. Blood Pressure (Only Systolic BP, mmHg): Score = 0 111-219 5. Pulse Oximetry: Score = 0 96% or greater 6. Supplemental oxygen in use: Score = 0 No 7. AVPU: Score = 0 Alert Patient Status: Remains on unit /es/ RENETTA EDMOND RN REGISTERED NURSE Signed: 11/08/2024 09:03 RENETTA GIMENEZ [facility] November 08, 2024 08:49 AM NURSING NOTE: LOCAL TITLE: [facility] SKIN INSPECTION/ASSESSMENT STANDARD TITLE: NURSING NOTE DATE OF NOTE: NOVEMBER 08, 2024@08:49 ENTRY DATE: NOVEMBER 08, 2024@08:49:18 AUTHOR: RENETTA GIMENEZ EXP COSIGNER: URGENCY: STATUS: COMPLETED Assessment Type: SKIN REINSPECTION/REASSESSMENT SKIN INSPECTION: Skin Color: Usual for ethnicity Skin Temperature: Warm Skin Moisture: Normal Skin Turgor: Elastic (normal/immediate) Mady Skin Assessment: The patient's Mady Scale Score is 21. The patient is considered not at risk for development of pressure ulcers/injuries. Sensory perception -- ability to respond meaningfully to pressure-related discomfort No impairment. Moisture -- degree to which skin is exposed to moisture Rarely moist. Activity -- ability to change and control body position Walks frequently. Mobility -- ability to change and control body position No limitation. Nutrition -- usual food intake patterns Adequate. Friction and shear Potential problem. INTERVENTIONS: The pressure injury interventions were not needed - patient/resident is not at risk. RISK FACTORS THAT INCREASE RISK FOR DEVELOPING PRESSURE INJURIES: The patient/resident has the following: Age over 75 Device(s): (nasogastric tubes, oxygen tubing, urinary catheters, cell phone etc.) Comment: mendoza catheter tubing tele leads Localized abnormality: Other: Location(s): LEFT [place] [facility] /es/ RENETTA EDMOND RN REGISTERED NURSE Signed: 11/08/2024 08:51 RENETTA GIMENEZ [facility] November 08, 2024 08:41 AM NURSING INPATIENT NOTE: LOCAL TITLE: [facility] ACUTE INPATIENT NSG SHIFT ASSESSMENT STANDARD TITLE: NURSING INPATIENT NOTE DATE OF NOTE: NOVEMBER 08, 2024@08:41 ENTRY DATE: NOVEMBER 08, 2024@08:41:26 AUTHOR: RENETTA GIMENEZ EXP COSIGNER: URGENCY: STATUS: COMPLETED [facility] ACUTE INPATIENT NSG SHIFT ASSESSMENT Has ADDENDA Version 2.2 Charting in accordance with [facility] RINCON STANDARD (WIAES) ACUTE INPATIENT/REHABILITATION NURSING ADMISSION SCREENING, ASSESSMENT, AND STANDARDS OF CARE ASSESSMENT HANDOFF Bedside report and handoff completed PAIN ASSESSMENT Patient's acceptable pain goal: 0 No pain Are you currently experiencing pain? No: Pain Score: 0 DESOUZA FALL SCALE & TIPS PROGRAM Desouza Fall Scale: The Desuoza Fall scale was performed and score was 50. This is indicative of high risk for falls. History of falling: immediate or within 3 months? No Secondary diagnosis: Yes Ambulatory aid: None/bedrest/nurse assist Intravenous therapy/Heparin lock: Yes Gait/Transferring: Normal/bed rest/immobile Mental Status: Overestimates/forgets limitations Fall Tailoring Interventions for Patient Safety (TIPS) Fall TIPS initiated with patient: Yes Interventions: Assistance out of bed: Call for assistance before getting out of bed Fall TIPS reviewed with patient: Yes Interventions: Assistance out of bed: Call for assistance before getting out of bed ENVIRONMENTAL SAFETY MANAGEMENT Implemented safety standards of care: -Harleigh to unit & environment -Adequate room lighting -Bed in low and locked position -Call light within reach -Personal items within reach -Traffic path in room free of clutter -Non-slip footwear -Upper/half length side rails up for bed mobility -Sensory aids within reach -Encourage patient to utilize sensory support Additional safety measures: Increased frequency of rounding Therapeutic Log Pond Worker: Therapeutic/Telecare [place] P[place] Worker criteria: Change in mental status, impulsivity Elopement risk/wandering [place] Worker type: Unlicensed Assistive Personnel at bedside NEUROLOGICAL Neurological Orientation: Person Situation Level of Consciousness (AVPU): Alert = Appears aware of and responsive to the environment on their own. Follows commands, opens eyes spontaneously, and tracks objects. NEUROMUSCULAR/NEUROVASCULA R EXTREMITIES ASSESSMENT Strength: Gore Stitcher Bilateral: Strong Upper Extremity Bilateral: Full strength Lower Extremity Bilateral: Full strength Sensation: Upper Extremity Sensation Bilateral: Intact Lower Extremity Sensation Bilateral: Intact Temperature: Upper Extremity Temperature Bilateral: Warm Lower Extremity Temperature Bilateral: Warm CARDIOVASCULAR Heart Rate/Rhythm (without awake overnight monitor): Regular Cardiac Rhythm Analysis: Atrial Fibrillation Telemetry Transmitter Pack #: 40 Capillary Refill: All 4 extremities, less than or equal to 3 seconds. Peripheral Pulses: All 4 extremities, 3+ normal. Edema: None RESPIRATORY Respirations: Unlabored Pattern: Regular Breath Sounds Auscultated: Anterior and posterior Left Upper Lobe: Clear Right Upper Lobe: Clear Right Middle Lobe: Clear Left Lower Lobe: Clear Right Lower Lobe: Clear GASTROINTESTINAL No bowel movement reported by patient Elimination: Continent Abdominal Description: Rounded Palpation: Soft, Non-tender Bowel Sounds: RUQ: Active LUQ: Active RLQ: Active LLQ: Active GENITOURINARY Elimination: Urinary catheter Voiding Difficulties: Retention Color/Characteristic: Clear Yellow Urinary Catheter: Type: Indwelling: Assessment: Type: Urethral: Regular CAUTI Prevention Maintenance Bundle Maintained: - Maintain closed drainage system - Collecting bag below the level of the bladder and remains off the floor - Catheter and collecting tube free from kinking and remains off the floor - Collection bag regularly emptied using a separate, clean collecting container for single patient use; avoiding splashing, and no contact of the drainage spigot with the nonsterile collecting container - Daily periurethral hygiene Catheter secured: Right leg Site Condition: No redness, pain, swelling Indication(s): Acute urinary retention ========= INTEGUMENTARY/SKIN/WOUND - (INCLUDING MADY) SEE NOTE: VAAES SKIN INPECTION/ASSESSMENT ========= ACTIVITIES OF DAILY LIVING Hygiene ADLs: Oral Care: Non-ventilator patient: Patient teeth brushed: Independently Pericare: Indwelling catheter present Cleansing product: provone wipes MOBILITY Mobility Status: Independent: Able to stand and step without staff assistance Steady standing balance Gait: Steady PSYCHOSOCIAL Type of Emotional Support Provided: 1:1 discussion, Treatment discussion, Ventilation of feelings encouraged Additional Comment: Received report and care for this patient at 0745 this morning denies pain or discomfort no sob or s/sx of distress noted call light and personal belongings within reach bed locked in lowest position for safety will continue to monitor throughout shift. /es/ RENETTA EDMOND RN REGISTERED NURSE Signed: 11/08/2024 08:49 11/08/2024 ADDENDUM STATUS: COMPLETED This nurse contaced Dr. Jayda Whatley concerning patient's increased HR. came to bedside. /es/ RENETTA EDMOND RN REGISTERED NURSE Signed: 11/08/2024 18:17 11/08/2024 ADDENDUM STATUS: COMPLETED Dr. Jayda Whatley made aware that patient's mbp is 150/112 hr 129. NNO were given. /es/ RENETTA EDMOND RN REGISTERED NURSE Signed: 11/08/2024 19:29 RENETTA GIMENEZ [facility] November 08, 2024 07:14 AM INTERNAL MEDICINE INPATIENT NOTE: LOCAL TITLE: MEDICINE GENERAL INPATIENT NOTE STANDARD TITLE: INTERNAL MEDICINE INPATIENT NOTE DATE OF NOTE: NOVEMBER 08, 2024@07:14 ENTRY DATE: NOVEMBER 08, 2024@07:14:15 AUTHOR: SAVANNA MCKEON EXP COSIGNER: POPEYE DIALLO URGENCY: STATUS: COMPLETED MEDICINE GENERAL INPATIENT NOTE Has ADDENDA MEDICINE INPATIENT GENERAL NOTE STL 79 year old MALE admitted on Oct 18:42 for Last Admission: 11/05/24 6:42:14 pm Admit Dx: AMS. Interval History: - NAEO - Patient in a-fib not in RVR now, asymptomatic, HD stable -- HR 100s-120s on tele - Denies any acute pain, n/v, constipation - patient reports difficulty sleeping at night Hospital Course: 79 yo pmhx of Alzheimers dementia (AOx2 at baseline), HFrEF, Afib, emphysema, hx of skin cancer coming in as OSH transfer from [facility] for intial concern of acute encephalopathy and UTI.Transferred to [facility] for assistance with placement. On arrival to [facility], VSS. Pt is AOx2 (at baseline). Patient does not have understanding as to why he is currently in the hospital. During admission, patient noted ot be in a-fib rvr, no IV access and was given PO metoprolol. Metoprolol Tartrate changed to 37.5 mg Q6h for rate control. Patient's metoprolol was changed to 50mg q6h as HR was still tachycardic. Active Inpatient Medications: 1) ENOXAPARIN INJ SQ QDAILY 2) MEMANTINE TAB PO DAILY 5MG 3) ACETAMINOPHEN TAB PO QID PRN 500MG 4) POLYETHYLENE GLYCOL 3350 PKT POWDER,ORAL PO QDAILY PRN 1 PACKET 5) DONEPEZIL TAB PO QHS 5MG 6) QUETIAPINE TAB PO BID 50MG 7) SACUBITRIL/VALSARTAN TAB PO BID 24MG/26MG 8) TAMSULOSIN CAP,ORAL PO QPM 0.4MG 9) SENNOSIDES (OTC) TAB PO QDAILY 17.2MG 10) THIAMINE TAB PO QHS 100MG 11) METOPROLOL TARTRATE (IMMEDIATE PO Q6H 37.5MG Vital Signs: Pulse: 109 (11/07/2024 21:00) BP:144/99 (11/07/2024 20:40) RESP:19 (11/07/2024 20:40) Pain:0 (11/07/2024 23:16) Tmax: Pulse Oximetry: Weight: 212.4 lb [96.34 kg] (11/07/2024 05:24) Intake/Output: PHYSICAL EXAM: General:AOx2, not in acute distress Head: normocephalic, atraumatic, skin colored rash/ patch on anterior forehead- oily CV:tachycardic, irregular rhythm Resp: clear to auscultation Abd: nondistended, nontender, normoactive bowel sounds : mendoza in place Extremities: No lower extremity edema, no tenderness to palpation Skin: chronic skin changes noted on b/l LE with some darkening of skin with mild edema Neuro: AOx2, mild aggitation, no focal deficits Recent Labs: BASIC METABOLIC PANEL: SODIUM 138 mEq/L 11/07/2024 06:00 POTASSIUM 4.7 mEq/L 11/07/2024 06:00 CHLORIDE 102 mEq/L 11/07/2024 06:00 UREA NITROGEN 19.3 mg/dL 11/07/2024 06:00 CREATININE 1.00 mg/dL 11/07/2024 06:00 CALCIUM 8.9 mg/dL 11/07/2024 06:00 CARBON DIOXIDE 27 mEq/L 11/07/2024 06:00 GLUCOSE 123 H mg/dL 11/07/2024 06:00 EGFR (CKD-EPI 2020) 75.6 11/07/2024 06:00 WBC: 12.6 10*3/uL H (11/07/24 06:00) HCT: 48.0 % (11/07/24 06:00) HGB: HGB 15.7 g/dL 11/07/2024 06:00 Plt: PLT 311 10*3/uL 11/07/2024 06:00 CK-MB: ____ TROPONIN I HISTORY: No data available Other Labs and Data: Assessment/Plan: 79 yo pmhx of Alzheimers dementia (AOx2 at baseline), HFrEF, Afib who initially presented to OSH for AMS and UTI now transferred to [facility] for placement. #Afib, no longer in RVR, HD stable - Home meds: metop succinate 100mg BID but at [place] switched to metop tartate 37.5 BID. Not on AC per chart review - EKG reports at [place] erson show patient still in afib - CHADVASC: 3 (HF, age) Plan: - continuous Tele - Change metoprolol tartrate to 50mg q6h - Will discuss with family need for AC as CHADsVASC >2, has been held due to recurrent falls #Acute encephalopathy - resolved #Alzheimer dementia - AMS likely 2/2 UTI vs. hospital delirium but now back to baseline per chart reiview - Home meds: donepezil 5mg daily - [facility] OSH: left MCA sign - Neuro consulted. Recommend doppler and Vit D/Folic/B12/TSH/UDS which were were all normal. Continued donepezil and initated on seroqel and memantine at [place]. Required IM haldol at times for severe agitation. Plan: - Continue donepezil, memantine, seroquel - Per daughter in law, patient is no longer able to live on his own - Psych consulted and found patient to be decisional in terms of discharge planning. Patient has expressed wanting to go home. Plan for patient to go to son's home on d/c - Pt/OT recommendations include 24/7 supervision - continue 1-1 sitter for elopement risk #UTI - resolved #Urinary retention s/p mendoza - OSH VSS. WBC 10. UA +LE, +blood, +WBC. No UCX. - Initiated on ceftriaxone then transitioned to cefdinir 10/20-10/26 - Bladder scans were c/f urinary retention, despite initial refusal patient eventually got a mendoza placed (still present on arrival here) w/ urology to follow up outpatient. Continued on home tamsulosin. Etiology 2/2 BPH vs. medication induced. Plan: - Has completed UTI tx at OSH - Continue home tamsulosin 0.4mg - Continue mendoza, will discharge with mendoza as patient failed voiding trial at OSH - Urology outpatient #HFrEF - Medications unclear, separate med list at [place] and home meds list. Pt not able to state what medications he is on. - Last TTE: EF of 25-30% with abnormal diastolic function, mild aortic calcifications and mild tricuspid regurgitation - [facility] meds: Metop tartrate 37.5 BID, entresto - Home meds: digoxin 0.125, metop succinate 100 daily, spironolactone 25mg daily, lasix 40mg daily - Pt euvolemic on exam Plan: - family unaware of home medications - Continue metop tartrate 50mg q6h, entresto #Emphysema - not on home inhalers, ctm #Hx of skin cancer - ctm Code: Full Diet: Regular diet DVT: lovenox daily Dispo: medicine, likely d/c to Son's home Patient was seen and discussed with Dr. Diallo. Savanna Mckeon DO PGY-1 Internal Medicine /rody/ SAVANNA MCKEON DIP DYER Signed: 11/08/2024 10:59 /rody/ POPEYE DIALLO MD PhD STAFF PHYSICIAN Cosigned: 11/10/2024 07:58 11/10/2024 ADDENDUM STATUS: COMPLETED The was seen, examined, and discussed at length with the resident physician. Relevant labs, imaging studies, and past medical records were reviewed. I agree with the assessment and plan as described in the resident's note. /rody/ POPEYE DIALLO MD PhD STAFF PHYSICIAN Signed: 11/10/2024 07:59 SAVANNA MCKEON [facility] November 08, 2024 05:04 AM NURSING INPATIENT NOTE: LOCAL TITLE: [facility] NURSING FREQUENT DOCUMENTATION STANDARD TITLE: NURSING INPATIENT NOTE DATE OF NOTE: NOVEMBER 08, 2024@05:04 ENTRY DATE: NOVEMBER 08, 2024@05:04:31 AUTHOR: DANIELA BABIN EXP COSIGNER: URGENCY: STATUS: COMPLETED Version 2.4 Charting in accordance with [facility] RINCON STANDARD ([place]IA[place]) ACUTE INPATIENT/REHABILITATION NURSING ADMISSION SCREENING, ASSESSMENT, AND STANDARDS OF CARE ACTIVITIES OF DAILY LIVING Hygiene ADLs: Oral Care: Non-ventilator patient: Patient teeth brushed: Independently The Marcus was educated that poor oral hygiene increases the risk of hospital acquired pneumonia and dental problems like gingivitis and tooth decay. was educated using their preferred method and verbalized understanding. /rody/ DANIELA BABIN RN REGISTERED NURSE Signed: 11/08/2024 05:04 DANIELA BABIN [facility] November 08, 2024 02:23 AM CARDIOLOGY NOTE: LOCAL TITLE: CARDIOLOGY TELEMETRY ST STANDARD TITLE: CARDIOLOGY NOTE DATE OF NOTE: NOVEMBER 08, 2024@02:23 ENTRY DATE: NOVEMBER 08, 2024@02:23:34 AUTHOR: CATE MENJIVAR EXP COSIGNER: URGENCY: STATUS: COMPLETED Telemetry reviewed: Atrial Fibrillation BILLING DEPARTMENT SUPERVISOR #: 40 RATE: 80s-120s SHIFT: 11-7 Shift COMMENT: Pt. had 2.27 second pause @ 0025 /rody/ CATE MENJIVAR INSTRUCTIONAL DESIGN TECHNOLOGIST Signed: 11/08/2024 02:24 CATE MENJIVAR [facility] November 07, 2024 11:25 PM NURSING INPATIENT NOTE: LOCAL TITLE: [facility] NURSING FREQUENT DOCUMENTATION STANDARD TITLE: NURSING INPATIENT NOTE DATE OF NOTE: NOVEMBER 07, 2024@23:25 ENTRY DATE: NOVEMBER 07, 2024@23:25:51 AUTHOR: DANIELA BABIN EXP COSIGNER: URGENCY: STATUS: COMPLETED Version 2.4 Charting in accordance with [facility] RINCON STANDARD (WIAES) ACUTE INPATIENT/REHABILITATION NURSING ADMISSION SCREENING, ASSESSMENT, AND STANDARDS OF CARE ACTIVITIES OF DAILY LIVING Hygiene ADLs: Pericare: Indwelling catheter present Soap and water Cleansing product: provon wipes /rody/ DANIELA BABIN RN REGISTERED NURSE Signed: 11/07/2024 23:26 DANIELA BABIN [facility] November 07, 2024 09:16 PM CARDIOLOGY NOTE: LOCAL TITLE: CARDIOLOGY TELEMETRY STL STANDARD TITLE: CARDIOLOGY NOTE DATE OF NOTE: NOVEMBER 07, 2024@21:16 ENTRY DATE: NOVEMBER 07, 2024@21:16:46 AUTHOR: ANDRIY GUILLEN EXP COSIGNER: URGENCY: STATUS: COMPLETED Telemetry reviewed: Atrial Fibrillation with unsustained RVR in 140s BILLING DEPARTMENT SUPERVISOR #: 40 RATE: 90s-120s SHIFT: 3-11 Shift COMMENT: The telemetry strips were put into the patient's hard charts on the floor. /rody/ ANDRIY GUILLEN Microbiology Professor EKG Signed: 11/07/2024 21:19 ANDRIY GUILLEN [facility] November 07, 2024 09:00 PM NURSING NOTE: LOCAL TITLE: [facility] SKIN INSPECTION/ASSESSMENT STANDARD TITLE: NURSING NOTE DATE OF NOTE: NOVEMBER 07, 2024@21:00 ENTRY DATE: NOVEMBER 07, 2024@23:10:20 AUTHOR: DANIELA BABIN EXP COSIGNER: URGENCY: STATUS: COMPLETED Assessment Type: SKIN REINSPECTION/REASSESSMENT SKIN INSPECTION: Skin Color: Usual for ethnicity Skin Temperature: Warm Skin Moisture: Normal Skin Turgor: Elastic (normal/immediate) Mady Skin Assessment: The patient's Mady Scale Score is 22. The patient is considered not at risk for development of pressure ulcers/injuries. Sensory perception -- ability to respond meaningfully to pressure-related discomfort No impairment. Moisture -- degree to which skin is exposed to moisture Rarely moist. Activity -- ability to change and control body position Walks frequently. Mobility -- ability to change and control body position No limitation. Nutrition -- usual food intake patterns Adequate. Friction and shear No apparent problem. INTERVENTIONS: No change in previous interventions as listed below Pressure Ulcer-Education 11/06/2024 Educate Importance Of Changing Position Pressure Ulcer-Nutrition 11/06/2024 Encourage Eating And Assist With Meals Monitor Fluid/Food Intake Offer Liquids Q2H When Turning Offer Ordered Supplements Provide/Encourage Oral Care As Needed Tray Set Up And Assistance Pressure Ulcer-Remobilize 11/06/2024 Encourage Activity As Tolerated Vaaes Pressure Injury Interventions 11/07/2024 Vaaes Pressure Injury Int Not Needed RISK FACTORS THAT INCREASE RISK FOR DEVELOPING PRESSURE INJURIES: The patient/resident has the following: Age over 75 Device(s): (nasogastric tubes, oxygen tubing, urinary catheters, cell phone etc.) Comment: campus monitor, mendoza catheter SKIN ALTERATIONS: Pressure Ulcer/Injury Documentation from the past year: No data available SKIN ALTERATIONS: Wound Documentation from the past year: No data available for: Skin Integrity - Wound Skin Integrity - Wound Second Skin Integrity - Wound Third Skin Integrity - Wound Fourth Skin Integrity - Wound Fifth Skin Integrity - Wound Additional Localized abnormality: Other: Location(s): scab L parks EDMAR, and scattered skin cancers head to toe most removed, lotion applied /rody/ DANIELA BABIN RN REGISTERED NURSE Signed: 11/07/2024 23:12 DANIELA BABIN [facility] November 07, 2024 08:55 PM NURSING INPATIENT NOTE: LOCAL TITLE: [facility] ACUTE INPATIENT NSG SHIFT ASSESSMENT STANDARD TITLE: NURSING INPATIENT NOTE DATE OF NOTE: NOVEMBER 07, 2024@20:55 ENTRY DATE: NOVEMBER 07, 2024@23:14:32 AUTHOR: DANIELA BABIN EXP COSIGNER: URGENCY: STATUS: COMPLETED Version 2.2 Charting in accordance with [place] APPROVED RINCON STANDARD (WIAES) ACUTE INPATIENT/REHABILITATION NURSING ADMISSION SCREENING, ASSESSMENT, AND STANDARDS OF CARE ASSESSMENT HANDOFF Bedside report and handoff completed Safety check completed PAIN ASSESSMENT Patient's acceptable pain goal: 0 No pain Are you currently experiencing pain? No: Pain Score: 0 DESOUZA FALL SCALE & TIPS PROGRAM Desouza Fall Scale: The Desouza Fall scale was performed and score was 60. This is indicative of high risk for falls. History of falling: immediate or within 3 months? Yes Secondary diagnosis: No Ambulatory aid: None/bedrest/nurse assist Intravenous therapy/Heparin lock: Yes Gait/Transferring: Normal/bed rest/immobile Mental Status: Overestimates/forgets limitations Fall Tailoring Interventions for Patient Safety (TIPS) Fall TIPS initiated with patient: Yes Interventions: Communicate recent fall or risk of harm Toileting schedule frequency established Toileting method: Other: mendoza catheter and bathroom Fall TIPS reviewed with patient: Yes Interventions: Communicate recent fall or risk of harm Toileting schedule frequency established Toileting method: Other: mendoza catheter and bathroom ENVIRONMENTAL SAFETY MANAGEMENT Implemented safety standards of care: -[place] to unit & environment -Adequate room lighting -Bed in low and locked position -Call light within reach -Personal items within reach -Traffic path in room free of clutter -Non-slip footwear -Upper/half length side rails up for bed mobility -Sensory aids within reach -Encourage patient to utilize sensory support Additional safety measures: Close to nurses station Other: 3:1 sitter at bedside for safety. NEUROLOGICAL Neurological Orientation: Person Place Level of Consciousness (AVPU): Alert = Appears aware of and responsive to the environment on their own. Follows commands, opens eyes spontaneously, and tracks objects. Affect/behavior: Cooperative Calm Impulsive Evans Agitation Sedation Scale (RASS): 0 Alert and calm ========= ASPIRATION RISK ASSESSMENT AND SWALLOW SCREEN ========= Aspiration Risk(s): Screening complete. No aspiration risk identified. Bedside Swallow Screen not indicated. NEUROMUSCULAR/NEUROVASCULA R EXTREMITIES ASSESSMENT Strength: Gore Stitcher Bilateral: Strong Upper Extremity Bilateral: Full strength Lower Extremity Bilateral: Full strength Sensation: Upper Extremity Sensation Bilateral: Intact Lower Extremity Sensation Bilateral: Intact Temperature: Upper Extremity Temperature Bilateral: Warm Lower Extremity Temperature Bilateral: Warm CARDIOVASCULAR Heart Sounds: Normal (S1S2) Cardiac Rhythm Analysis: Atrial Fibrillation Other: w/unsustaned RVR in 140's, pulse 90-120's Telemetry Transmitter Pack #: 102 Capillary Refill: All 4 extremities, less than or equal to 3 seconds. Peripheral Pulses: All 4 extremities, 3+ normal. Edema: None Cardiovascular - Embolism Prevention: Comment: [place] RESPIRATORY Respirations: Unlabored Pattern: Regular Breath Sounds Auscultated: Anterior and posterior Left Upper Lobe: Clear Right Upper Lobe: Clear Right Middle Lobe: Clear Left Lower Lobe: Clear Right Lower Lobe: Clear GASTROINTESTINAL Last bowel movement: 11/07/2024 Stool: Description: Soft Semi-formed Color: Brown Amount: Medium Passing flatus Elimination: Continent Abdominal Description: Rounded Palpation: Soft, Non-tender Bowel Sounds: RUQ: Active LUQ: Active RLQ: Active LLQ: Active GENITOURINARY Elimination: Urinary catheter Color/Characteristic: Clear Yellow Urinary Catheter: Type: Indwelling: Assessment: Type: Urethral: Regular CAUTI Prevention Maintenance Bundle Maintained: - Maintain closed drainage system - Collecting bag below the level of the bladder and remains off the floor - Catheter and collecting tube free from kinking and remains off the floor - Collection bag regularly emptied using a separate, clean collecting container for single patient use; avoiding splashing, and no contact of the drainage spigot with the nonsterile collecting container - Daily periurethral hygiene Catheter secured: Right leg Site Condition: No redness, pain, swelling Indication(s): Acute urinary retention ========= INTEGUMENTARY/SKIN/WOUND - (INCLUDING MADY) SEE NOTE: [facility] SKIN INPECTION/ASSESSMENT ========= ACTIVITIES OF DAILY LIVING Hygiene ADLs: Eating: Independent Foot Care: Inspection Lotion applied Hand Hygiene: Performed post toileting Performed pre meals/snacks MOBILITY Mobility Goal Setting: [facility] Highest Level of Mobility: 6 - Walked 10 steps or more (walked to restroom) Mobility Status: Independent: Able to stand and step without staff assistance Steady standing balance Gait: Steady PSYCHOSOCIAL Type of Emotional Support Provided: 1:1 discussion, Hospitalization discussion, Treatment discussion /es/ DANIELA BABIN RN REGISTERED NURSE Signed: 11/07/2024 23:25 DANIELA BABIN [facility] November 07, 2024 08:10 PM NURSING NOTE: LOCAL TITLE: JOSE PROGRESS NOTE STL STANDARD TITLE: NURSING NOTE DATE OF NOTE: NOVEMBER 07, 2024@20:10 ENTRY DATE: NOVEMBER 07, 2024@20:21:42 AUTHOR: DANIELA BABIN EXP COSIGNER: URGENCY: STATUS: COMPLETED 2009 Daniela SHERWOOD day RN reported to this RN that in talking with patient's [id number] patient told her he had bright red blood in his stool earlier. The patient just had a bowel movement. This RN did not see any blood on the toilet paper when he wiped on in any of the stool. /es/ DANIELA BABIN RN REGISTERED NURSE Signed: 11/07/2024 20:24 DANIELA BABIN Katelyn HOWELL [facility] November 07, 2024 05:04 PM NURSING INPATIENT NOTE: LOCAL TITLE: [facility] ACUTE INPATIENT NSG SHIFT ASSESSMENT STANDARD TITLE: NURSING INPATIENT NOTE DATE OF NOTE: NOVEMBER 07, 2024@17:04 ENTRY DATE: NOVEMBER 07, 2024@17:04:47 AUTHOR: SOULEYMANE RENE COSIGNER: URGENCY: STATUS: COMPLETED Version 2.2 Charting in accordance with [facility] RINCON STANDARD (WIAES) ACUTE INPATIENT/REHABILITATION NURSING ADMISSION SCREENING, ASSESSMENT, AND STANDARDS OF CARE REASSESSMENT PAIN ASSESSMENT Patient's acceptable pain goal: 0 No pain Are you currently experiencing pain? NEUROLOGICAL Neurological Orientation: Person Place Situation Level of Consciousness (AVPU): Alert = Appears aware of and responsive to the environment on their own. Follows commands, opens eyes spontaneously, and tracks objects. NEUROMUSCULAR/NEUROVASCULA R EXTREMITIES ASSESSMENT Strength: Gore Stitcher Bilateral: Strong Upper Extremity Bilateral: Full strength Lower Extremity Bilateral: Full strength Sensation: Upper Extremity Sensation Bilateral: Intact Lower Extremity Sensation Bilateral: Intact Temperature: Upper Extremity Temperature Bilateral: Warm Lower Extremity Temperature Bilateral: Warm CARDIOVASCULAR Heart Sounds: Normal (S1S2) Cardiac Rhythm Analysis: Atrial Fibrillation Other: RVR Telemetry Transmitter Pack #: 102 Capillary Refill: R Hand: Less than or equal to 3 seconds L Hand: Less than or equal to 3 seconds R Foot: Less than or equal to 3 seconds L Foot: Less than or equal to 3 seconds Peripheral Pulses: R Radial: 3+ Normal L Radial: 3+ Normal R Dorsalis Pedis: L Dorsalis Pedis: R Posterior Tibial: L Posterior Tibial: R Popliteal: L Popliteal: Edema: None RESPIRATORY Respirations: Unlabored Breath Sounds Auscultated: Anterior and posterior Right Upper Lobe: Diminished Left Upper Lobe: Diminished Right Middle Lobe: Diminished Right Lower Lobe: Diminished Left Lower Lobe: Diminished GASTROINTESTINAL Last bowel movement: 11/07/24 Elimination: Continent Abdominal Description: Flat Palpation: Soft, Non-tender Bowel Sounds: RUQ: Active LUQ: Active RLQ: Active LLQ: Active GENITOURINARY Elimination: Urinary catheter Urinary Catheter: Type: Indwelling: Assessment: Type: Urethral: Regular CAUTI Prevention Maintenance Bundle Maintained: - Maintain closed drainage system - Collecting bag below the level of the bladder and remains off the floor - Catheter and collecting tube free from kinking and remains off the floor - Collection bag regularly emptied using a separate, clean collecting container for single patient use; avoiding splashing, and no contact of the drainage spigot with the nonsterile collecting container - Daily periurethral hygiene Catheter secured: Right leg Site Condition: No redness, pain, swelling Indication(s): Acute urinary retention Neurogenic bladder dysfunction ========= INTEGUMENTARY/SKIN/WOUND - (INCLUDING MADY) SEE NOTE: [facility] SKIN INPECTION/ASSESSMENT ========= ACTIVITIES OF DAILY LIVING Hygiene ADLs: Pericare: Indwelling catheter present Cleansing product: PROVON /rody/ DANIELA FERNANDES RN REGISTERED NURSE Signed: 11/07/2024 17:10 SOULEYMANE RENE [facility] November 07, 2024 01:11 PM NURSING INPATIENT NOTE: LOCAL TITLE: [facility] NURSING FREQUENT DOCUMENTATION STANDARD TITLE: NURSING INPATIENT NOTE DATE OF NOTE: NOVEMBER 07, 2024@13:11 ENTRY DATE: NOVEMBER 07, 2024@13:11:37 AUTHOR: JIE DAVENPORT COSIGNER: URGENCY: STATUS: COMPLETED Version 2.4 Charting in accordance with [place] APPROVED R[place]CON STANDARD (WIAES) ACUTE INPATIENT/REHABILITATION NURSING ADMISSION SCREENING, ASSESSMENT, AND STANDARDS OF CARE ACTIVITIES OF DAILY LIVING Hygiene ADLs: Dressing: Upper Body: Independent Upper Body: Minimal assist Lower Body: Independent Lower Body: Minimal assist Eating: Independent Foot Care: Inspection Hand Hygiene: Performed post toileting Performed pre meals/snacks Oral Care: Non-ventilator patient: Patient teeth brushed: Independently The Marcus was educated that poor oral hygiene increases the risk of hospital acquired pneumonia and dental problems like gingivitis and tooth decay. was educated using their preferred method and verbalized understanding. Pericare: Soap and water Independent Minimal assist Personal Care: Bath Independent Minimal assist Toileting: Minimal assist ACTIVITY/MOBILIZATION Mobility Status: Independent: Able to stand and step without staff assistance Steady standing balance Minimum assist: Equipment utilized: Walker Gait: Steady Gait: Unsteady [facility] - Highest Level of Mobility achieved this shift: 3 - Sat at edge of bed ENVIRONMENTAL SAFETY MANAGEMENT Implemented safety standards of care: -Harleigh to unit & environment -Adequate room lighting -Bed in low and locked position -Call light within reach -Personal items within reach -Traffic path in room free of clutter -Non-slip footwear -Upper/half length side rails up for bed mobility -Sensory aids within reach -Encourage patient to utilize sensory support GASTROINTESTINAL Elimination: Continent GENITOURINARY Elimination: Continent Color/Characteristic: Yellow ORAL INTAKE (PERCENTAGE OF MEAL EATEN) Breakfast: 76% - 100% Lunch: 51% - 75% /rody/ KENYON [employer] PUBLIC SAFETY OFFICER Signed: 11/07/2024 13:28 JIE DAVENPORT [facility] November 07, 2024 12:26 PM CARDIOLOGY NOTE: LOCAL TITLE: CARDIOLOGY TELEMETRY [facility] STANDARD TITLE: CARDIOLOGY NOTE DATE OF NOTE: NOVEMBER 07, 2024@12:26 ENTRY DATE: NOVEMBER 07, 2024@12:26:18 AUTHOR: DONN LA EXP COSIGNER: URGENCY: STATUS: COMPLETED Telemetry reviewed: Atrial Fibrillation /VARIABLE AFLUTTER BILLING DEPARTMENT SUPERVISOR #: 102 RATE: 90S-140S SHIFT: 7-3 Shift COMMENT: ECG strips can be found in the back of the patient's hard copy chart. /rody/ DONN LA Medical Wood Pattern Maker ekg Signed: 11/07/2024 12:31 DONN LA [facility] November 07, 2024 12:07 PM INTERNAL MEDICINE INPATIENT NOTE: LOCAL TITLE: MEDICINE GENERAL INPATIENT NOTE STANDARD TITLE: INTERNAL MEDICINE INPATIENT NOTE DATE OF NOTE: NOVEMBER 07, 2024@12:07 ENTRY DATE: NOVEMBER 07, 2024@12:07:13 AUTHOR: SAVANNA MCKEON EXP COSIGNER: POPEYE DIALLO URGENCY: STATUS: COMPLETED MEDICINE GENERAL INPATIENT NOTE Has ADDENDA MEDICINE INPATIENT GENERAL NOTE STL 79 year old MALE admitted on Oct 18:42 for Last Admission: 11/05/24 6:42:14 pm Admit Dx: AMS. Interval History: - NAEO - Patient in a-fib not in RVR now, asymptomatic, HD stable - Denies any acute pain, n/v, constipation - Spoke to patient about discharge plans and if he would like home health. He got very upset by the idea and says he is able to manage by himself Hospital Course: 79 yo pmhx of Alzheimers dementia (AOx2 at baseline), HFrEF, Afibm emphysema, hx of skin cancer coming in as OSH transfer from [facility] for intial concern of acute encephalopathy and UTI.Transferred to [facility] for assistance with placement. On arrival to [facility], VSS. Pt is AOx2 (at baseline). Patient does not have understanding as to why he is currently in the hospital. During admission, patient noted ot be in a-fib rvr, no IV access and was given PO metoprolol. Metoprolol Tartrate changed to 37.5 mg Q6h for rate control. Active Inpatient Medications: 1) ENOXAPARIN INJ SQ QDAILY 2) MEMANTINE TAB PO DAILY 5MG 3) ACETAMINOPHEN TAB PO QID PRN 500MG 4) POLYETHYLENE GLYCOL 3350 PKT POWDER,ORAL PO QDAILY PRN 1 PACKET 5) DONEPEZIL TAB PO QHS 5MG 6) QUETIAPINE TAB PO BID 50MG 7) SACUBITRIL/VALSARTAN TAB PO BID 24MG/26MG 8) TAMSULOSIN CAP,ORAL PO QPM 0.4MG 9) SENNOSIDES (OTC) TAB PO QDAILY 17.2MG 10) THIAMINE TAB PO QHS 100MG 11) METOPROLOL TARTRATE (IMMEDIATE PO Q6H 37.5MG Vital Signs: Pulse: 79 (11/07/2024 07:56) BP:101/68 (11/07/2024 07:56) RESP:18 (11/07/2024 07:56) Pain:0 (11/07/2024 05:24) Tmax: Pulse Oximetry: Weight: 212.4 lb [96.34 kg] (11/07/2024 05:24) Intake/Output: PHYSICAL EXAM: General:AOx2, not in acute distress Head: normocephalic, atraumatic CV:tachycardic, irregular rhythm Resp: clear to auscultation Abd: nondistended, nontender, normoactive bowel sounds : mendoza in place Extremities: No lower extremity edema, no tenderness to palpation Skin: chronic skin changes noted on b/l LE with some darkening of skin with mild edema Neuro: AOx2, mild aggitation, no focal deficits Recent Labs: BASIC METABOLIC PANEL: SODIUM 138 mEq/L 11/07/2024 06:00 POTASSIUM 4.7 mEq/L 11/07/2024 06:00 CHLORIDE 102 mEq/L 11/07/2024 06:00 UREA NITROGEN 19.3 mg/dL 11/07/2024 06:00 CREATININE 1.00 mg/dL 11/07/2024 06:00 CALCIUM 8.9 mg/dL 11/07/2024 06:00 CARBON DIOXIDE 27 mEq/L 11/07/2024 06:00 GLUCOSE 123 H mg/dL 11/07/2024 06:00 EGFR (CKD-EPI 2020) 75.6 11/07/2024 06:00 WBC: 12.6 10*3/uL H (11/07/24 06:00) HCT: 48.0 % (11/07/24 06:00) HGB: HGB 15.7 g/dL 11/07/2024 06:00 Plt: PLT 311 10*3/uL 11/07/2024 06:00 CK-MB: ____ TROPONIN I HISTORY: No data available Other Labs and Data: Assessment/Plan: 79 yo pmhx of Alzheimers dementia (AOx2 at baseline), HFrEF, Afib who initially presented to OSH for AMS and UTI now transferred to [facility] for placement. #Afib, no longer in RVR, HD stable - Home meds: metop succinate 100mg but at [place] switched to metop tartate 37.5 BID. Not on AC per chart review - EKG reports at [facility] show patient still in afib - CHADVASC: 3 (HF, age) Plan: - continuous Tele - Change metoprolol tartrate to 37.5mg q6h - Will discuss with family need for AC as CHADsVASC >2, has been held due to recurrent falls #Acute encephalopathy - resolved #Alzheimer dementia - AMS likely 2/2 UTI vs. hospital delirium but now back to baseline per chart reiview - Home meds: donepezil 5mg daily - [facility] OSH: left MCA sign - Neuro consulted. Recommend doppler and Vit D/Folic/B12/TSH/UDS which were were all normal. Continued donepezil and initated on seroqel and memantine at [facility]. Required IM haldol at times for severe agitation. Plan: - Continue donepezil, memantine, seroquel - Per daughter in law, patient is no longer able to live on his own and she does not feel safe with him coming to her home, would like nursing facility. - Psych consulted and found patient to be decisional in terms of discharge planning. Patient has expressed wanting to go home #UTI - resolved #Urinary retention s/p mendoza - OSH VSS. WBC 10. UA +LE, +blood, +WBC. No UCX. - Initiated on ceftriaxone then transitioned to cefdinir 10/20-10/26 - Bladder scans were c/f urinary retention, despite initial refusal patient eventually got a mendoza placed (still present on arrival here) w/ urology to follow up outpatient. Continued on home tamsulosin. Etiology 2/2 BPH vs. medication induced. Plan: - Has completed UTI tx at OSH - Continue home tamsulosin 0.4mg - Continue mendoza. Can consider void trial once patient's mentation improves - Urology outpatient #HFrEF - Medications unclear, separate med list at [facility] and home meds list. Pt not able to state what medications he is on. - Last TTE: EF of 25-30% with abnormal diastolic function, mild aortic calcifications and mild tricuspid regurgitation - [facility] meds: Metop tartrate 37.5 BID, entresto - Home meds: digoxin 0.125, metop succinate 100 daily, spironolactone 25mg daily, lasix 40mg daily - Pt euvolemic on exam Plan: - family unaware of home medications - Continue metop tartrate 37.5 BID, entresto #Emphysema - not on home inhalers, ctm #Hx of skin cancer - ctm Code: Full Diet: Regular diet DVT: lovenox daily Dispo: medicine Patient was seen and discussed with Dr. Diallo. Savanna Mckeon DO PGY-1 Internal Medicine /rody/ SAVANNA MCKEON DIP DYER Signed: 11/07/2024 12:44 /rody/ POPEYE DIALLO MD PhD STAFF PHYSICIAN Cosigned: 11/07/2024 13:01 11/07/2024 ADDENDUM STATUS: COMPLETED The was seen, examined, and discussed at length with the resident physician. Relevant labs, imaging studies, and past medical records were reviewed. I agree with the assessment and plan as described in the resident's note. /rody/ POPEYE DIALLO MD PhD STAFF PHYSICIAN Signed: 11/07/2024 13:02 SAVANNA MCKEON [facility] November 07, 2024 08:36 AM NURSING NOTE: LOCAL TITLE: [facility] SKIN INSPECTION/ASSESSMENT STANDARD TITLE: NURSING NOTE DATE OF NOTE: NOVEMBER 07, 2024@08:36 ENTRY DATE: NOVEMBER 07, 2024@08:36:39 AUTHOR: SOULEYMANE RENE EXP COSIGNER: URGENCY: STATUS: COMPLETED Assessment Type: SKIN REINSPECTION/REASSESSMENT SKIN INSPECTION: Skin Color: Usual for ethnicity Skin Temperature: Warm Skin Moisture: Normal Skin Turgor: Elastic (normal/immediate) Mady Skin Assessment: The patient's Mady Scale Score is 20. The patient is considered not at risk for development of pressure ulcers/injuries. Sensory perception -- ability to respond meaningfully to pressure-related discomfort Slightly limited. Moisture -- degree to which skin is exposed to moisture Rarely moist. Activity -- ability to change and control body position Walks frequently. Mobility -- ability to change and control body position Slightly limited. Nutrition -- usual food intake patterns Excellent. Friction and shear Potential problem. INTERVENTIONS: The pressure injury interventions were not needed - patient/resident is not at risk. RISK FACTORS THAT INCREASE RISK FOR DEVELOPING PRESSURE INJURIES: The patient/resident has the following: Age over 75 Device(s): (nasogastric tubes, oxygen tubing, urinary catheters, cell phone etc.) Comment: telemetry, urinary cath Localized abnormality: Other: Location(s): facial and neck scabs and alisa area; hx skin cancer /rody/ DANIELA RENE BSN RN REGISTERED NURSE Signed: 11/07/2024 08:39 SOULEYMANE RENE [facility] November 07, 2024 08:34 AM NURSING INPATIENT NOTE: LOCAL TITLE: [facility] ACUTE INPATIENT NSG SHIFT ASSESSMENT STANDARD TITLE: NURSING INPATIENT NOTE DATE OF NOTE: NOVEMBER 07, 2024@08:34 ENTRY DATE: NOVEMBER 07, 2024@08:34:18 AUTHOR: SOULEYMANE RENE EXP COSIGNER: URGENCY: STATUS: COMPLETED Version 2.2 Charting in accordance with [place] APPROVED RINCON STANDARD (WIAES) ACUTE INPATIENT/REHABILITATION NURSING ADMISSION SCREENING, ASSESSMENT, AND STANDARDS OF CARE ASSESSMENT HANDOFF Bedside report and handoff completed Safety check completed Comment: sitter PAIN ASSESSMENT Patient's acceptable pain goal: 0 No pain Are you currently experiencing pain? No: DESOUZA FALL SCALE & TIPS PROGRAM Desouza Fall Scale: The Desouza Fall scale was performed and score was 55. This is indicative of high risk for falls. History of falling: immediate or within 3 months? Yes Secondary diagnosis: Yes Ambulatory aid: None/bedrest/nurse assist Intravenous therapy/Heparin lock: No Gait/Transferring: Normal/bed rest/immobile Mental Status: Overestimates/forgets limitations Fall Tailoring Interventions for Patient Safety (TIPS) Fall TIPS initiated with patient: Yes Interventions: Communicate recent fall or risk of harm Toileting schedule frequency established Fall TIPS reviewed with patient: Yes Interventions: Communicate recent fall or risk of harm Toileting schedule frequency established Comment: sitter ENVIRONMENTAL SAFETY MANAGEMENT Implemented safety standards of care: -Harleigh to unit & environment -Adequate room lighting -Bed in low and locked position -Call light within reach -Personal items within reach -Traffic path in room free of clutter -Non-slip footwear -Upper/half length side rails up for bed mobility -Sensory aids within reach -Encourage patient to utilize sensory support Additional safety measures: Close to nurses station Patient health and safety inspector: (Suicidal/Homicidal Ideation) Attendant type: Unlicensed Assistive Personnel at bedside NEUROLOGICAL Neurological Orientation: Person Place Level of Consciousness (AVPU): NEUROMUSCULAR/NEUROVASCULA R EXTREMITIES ASSESSMENT Strength: Gore Stitcher Bilateral: Strong Upper Extremity Bilateral: Full strength Lower Extremity Bilateral: Full strength Sensation: Upper Extremity Sensation Bilateral: Intact Lower Extremity Sensation Bilateral: Intact Temperature: Upper Extremity Temperature Bilateral: Warm Lower Extremity Temperature Bilateral: Warm CARDIOVASCULAR Heart Sounds: Normal (S1S2) Cardio Telemetry #102 Afib w RVR Capillary Refill: Comment: would not let nurse assess Peripheral Pulses: R Radial: 3+ Normal L Radial: 3+ Normal R Dorsalis Pedis: L Dorsalis Pedis: R Posterior Tibial: L Posterior Tibial: R Popliteal: L Popliteal: Edema: None Cardiovascular - Embolism Prevention: Comment: RESPIRATORY Respirations: Unlabored Breath Sounds Auscultated: Anterior and posterior Right Upper Lobe: Clear Left Upper Lobe: Clear Right Middle Lobe: Clear Right Lower Lobe: Clear Left Lower Lobe: Clear GASTROINTESTINAL Elimination: Continent Abdominal Description: Distended Palpation: Soft, Non-tender Bowel Sounds: RUQ: Active LUQ: Active RLQ: Active LLQ: Active GENITOURINARY Elimination: Urinary catheter Urinary Catheter: Type: Indwelling: Assessment: Type: Urethral: Regular CAUTI Prevention Maintenance Bundle Maintained: - Maintain closed drainage system - Collecting bag below the level of the bladder and remains off the floor - Catheter and collecting tube free from kinking and remains off the floor - Collection bag regularly emptied using a separate, clean collecting container for single patient use; avoiding splashing, and no contact of the drainage spigot with the nonsterile collecting container - Daily periurethral hygiene Catheter secured: Right leg Site Condition: No redness, pain, swelling Indication(s): Acute urinary retention Neurogenic bladder dysfunction ========= INTEGUMENTARY/SKIN/WOUND - (INCLUDING MADY) SEE NOTE: VAAES SKIN INPECTION/ASSESSMENT ========= ACTIVITIES OF DAILY LIVING Hygiene ADLs: Foot Care: Inspection Oral Care: Non-ventilator patient: Patient dentures/partial plates cleaned: With assistance Swabbing performed-Patient edentulous (lacking teeth) The was educated that poor oral hygiene increases the risk of hospital acquired pneumonia and dental problems like gingivitis and tooth decay. was educated using their preferred method and verbalized understanding. Pericare: Indwelling catheter present Cleansing product: PROVON MOBILITY Mobility Status: Independent: Able to stand and step without staff assistance Steady standing balance Gait: Steady IV LINES PSYCHOSOCIAL Type of Emotional Support Provided: 1:1 discussion, Coping skills discussion, Treatment discussion, Ventilation of feelings encouraged /es/ DANIELA FERNANDES RN REGISTERED NURSE Signed: 11/07/2024 08:36 SOULEYMANE RENE [facility] November 07, 2024 08:32 AM NURSING INPATIENT NOTE: LOCAL TITLE: [facility] NURSING FREQUENT DOCUMENTATION STANDARD TITLE: NURSING INPATIENT NOTE DATE OF NOTE: NOVEMBER 07, 2024@08:32 ENTRY DATE: NOVEMBER 07, 2024@08:32:54 AUTHOR: SOULEYMANE RENE COSIGNER: URGENCY: STATUS: COMPLETED Version 2.4 Charting in accordance with [facility] RINCON STANDARD (WIAES) ACUTE INPATIENT/REHABILITATION NURSING ADMISSION SCREENING, ASSESSMENT, AND STANDARDS OF CARE NATIONAL EARLY WARNING SCORE (NEWS) The following vital measurements were used to complete the NEWS. Measurement DT TEMP PULSE RESP BP POx F(C) (L/MIN)(%) 11/07/2024 07:56 98.6(37.0) 79 18 101/68 97 The NEWS total is 0. 1. Temperature (C/F): Score = 0 36.1 - 38.0 C (96.9 - 100.4 F) 2. Pulse: Score = 0 51-90 3. Respirations: Score = 0 12-20 4. Blood Pressure (Only Systolic BP, mmHg): Score = 0 111-219 5. Pulse Oximetry: Score = 0 96% or greater 6. Supplemental oxygen in use: Score = 0 No 7. AVPU: Score = 0 Alert Patient Status: Remains on unit /es/ DANIELA FERNANDES RN REGISTERED NURSE Signed: 11/07/2024 08:33 SOULEYMANE RENE [facility] November 07, 2024 08:07 AM NURSING INPATIENT NOTE: LOCAL TITLE: [facility] NURSING FREQUENT DOCUMENTATION STANDARD TITLE: NURSING INPATIENT NOTE DATE OF NOTE: NOVEMBER 07, 2024@08:07 ENTRY DATE: NOVEMBER 07, 2024@08:07:21 AUTHOR: JIE DAVENPORT EXP COSIGNER: URGENCY: STATUS: COMPLETED Version 2.4 Charting in accordance with [facility] RINCON STANDARD (WIAES) ACUTE INPATIENT/REHABILITATION NURSING ADMISSION SCREENING, ASSESSMENT, AND STANDARDS OF CARE ORAL INTAKE (PERCENTAGE OF MEAL EATEN) Breakfast: 76% - 100% /es/ KENYON SMALL SECURITY PUBLIC SAFETY OFFICER Signed: 11/07/2024 08:07 JIE DAVENPORT [facility] November 07, 2024 05:36 AM CARDIOLOGY NOTE: LOCAL TITLE: CARDIOLOGY TELEMETRY STL STANDARD TITLE: CARDIOLOGY NOTE DATE OF NOTE: NOVEMBER 07, 2024@05:36 ENTRY DATE: NOVEMBER 07, 2024@05:36:23 AUTHOR: CATE MENJIVAR EXP COSIGNER: URGENCY: STATUS: COMPLETED Telemetry reviewed: Atrial Flutter BILLING DEPARTMENT SUPERVISOR #: 102 RATE: 80s-160s SHIFT: 11-7 Shift COMMENT: Pt. HR increases 130s-160s when mobile /rody/ CATE MENJIVAR INSTRUCTIONAL DESIGN TECHNOLOGIST Signed: 11/07/2024 05:37 CATE MENJIVAR [facility] November 07, 2024 05:13 AM NURSING INPATIENT NOTE: LOCAL TITLE: [facility] NURSING FREQUENT DOCUMENTATION STANDARD TITLE: NURSING INPATIENT NOTE DATE OF NOTE: NOVEMBER 07, 2024@05:13 ENTRY DATE: NOVEMBER 07, 2024@05:13:34 AUTHOR: DANIELA BABIN EXP COSIGNER: URGENCY: STATUS: COMPLETED Version 2.4 Charting in accordance with [place] APPROVED RINCON STANDARD (WIAES) ACUTE INPATIENT/REHABILITATION NURSING ADMISSION SCREENING, ASSESSMENT, AND STANDARDS OF CARE ACTIVITIES OF DAILY LIVING Hygiene ADLs: Oral Care: Non-ventilator patient: Patient teeth brushed: With assistance The was educated that poor oral hygiene increases the risk of hospital acquired pneumonia and dental problems like gingivitis and tooth decay. Marcus was educated using their preferred method and verbalized understanding. /rody/ DANIELA BABIN RN REGISTERED NURSE Signed: 11/07/2024 05:13 DANIELA BABIN [facility] November 07, 2024 04:35 AM NURSING INPATIENT NOTE: LOCAL TITLE: [facility] NURSING FREQUENT DOCUMENTATION STANDARD TITLE: NURSING INPATIENT NOTE DATE OF NOTE: NOVEMBER 07, 2024@04:35 ENTRY DATE: NOVEMBER 07, 2024@06:35:56 AUTHOR: WALLACE RUIZ EXP COSIGNER: URGENCY: STATUS: COMPLETED Version 2.4 Charting in accordance with [place] APPROVED RINCON STANDARD (WIAES) ACUTE INPATIENT/REHABILITATION NURSING ADMISSION SCREENING, ASSESSMENT, AND STANDARDS OF CARE ACTIVITIES OF DAILY LIVING Hygiene ADLs: Dressing: Upper Body: Minimal assist Lower Body: Minimal assist Eating: Independent Hand Hygiene: Performed post toileting Performed pre meals/snacks Oral Care: Non-ventilator patient: Patient teeth brushed: Patient declined pt refused The was educated that poor oral hygiene increases the risk of hospital acquired pneumonia and dental problems like gingivitis and tooth decay. was educated using their preferred method and verbalized understanding. Pericare: Patient declined Personal Care: Patient declined Toileting: Maximal assist ACTIVITY/MOBILIZATION Mobility Status: Independent: Able to stand and step without staff assistance Steady standing balance Gait: Steady [facility] - Highest Level of Mobility achieved this shift: 7 - Walked 25 feet or more (walked outside room) ENVIRONMENTAL SAFETY MANAGEMENT Implemented safety standards of care: -Harleigh to unit & environment -Adequate room lighting -Bed in low and locked position -Call light within reach -Personal items within reach -Traffic path in room free of clutter -Non-slip footwear -Upper/half length side rails up for bed mobility -Sensory aids within reach -Encourage patient to utilize sensory support Additional safety measures: Caregiver/family in attendance GASTROINTESTINAL No bowel movement reported by patient Elimination: Continent GENITOURINARY Elimination: Intermittent catheterization ORAL INTAKE (PERCENTAGE OF MEAL EATEN) Snacks: % Consumed/Comment: 100% /es/ WALLACE RUIZ CNA SECURITY PUBLIC SAFETY OFFICER Signed: 11/07/2024 06:37 WALLACE RUIZ [facility] November 06, 2024 10:02 PM NURSING INPATIENT NOTE: LOCAL TITLE: [facility] NURSING FREQUENT DOCUMENTATION STANDARD TITLE: NURSING INPATIENT NOTE DATE OF NOTE: NOVEMBER 06, 2024@22:02 ENTRY DATE: NOVEMBER 06, 2024@22:02:37 AUTHOR: YOLIE BUENROSTRO COSIGNER: URGENCY: STATUS: COMPLETED Version 2.4 Charting in accordance with [place] APPROVED RINCON STANDARD (WIAES) ACUTE INPATIENT/REHABILITATION NURSING ADMISSION SCREENING, ASSESSMENT, AND STANDARDS OF CARE ACTIVITIES OF DAILY LIVING Hygiene ADLs: Dressing: Upper Body: Minimal assist Lower Body: Minimal assist Eating: Independent Foot Care: Inspection Hand Hygiene: Performed post toileting Oral Care: Non-ventilator patient: Swabbing performed-Patient edentulous (lacking teeth) The was educated that poor oral hygiene increases the risk of hospital acquired pneumonia and dental problems like gingivitis and tooth decay. Marcus was educated using their preferred method and verbalized understanding. Pericare: Indwelling catheter present Soap and water Independent Personal Care: Shower Independent Toileting: Independent Minimal assist ACTIVITY/MOBILIZATION Mobility Status: Independent: [facility] - Highest Level of Mobility achieved this shift: ENVIRONMENTAL SAFETY MANAGEMENT Implemented safety standards of care: -Harleigh to unit & environment -Adequate room lighting -Bed in low and locked position -Call light within reach -Personal items within reach -Traffic path in room free of clutter -Non-slip footwear -Upper/half length side rails up for bed mobility -Sensory aids within reach -Encourage patient to utilize sensory support GASTROINTESTINAL No bowel movement reported by patient Elimination: Continent GENITOURINARY Elimination: Urinary catheter /es/ KENYON PITTS SECURITY PUBLIC SAFETY OFFICER Signed: 11/06/2024 22:03 YOLIE BUENROSTRO [facility] November 06, 2024 09:40 PM NURSING NOTE: LOCAL TITLE: [facility] SKIN INSPECTION/ASSESSMENT STANDARD TITLE: NURSING NOTE DATE OF NOTE: NOVEMBER 06, 2024@21:40 ENTRY DATE: NOVEMBER 06, 2024@23:12:43 AUTHOR: DANIELA BABIN COSIGNER: URGENCY: STATUS: COMPLETED Assessment Type: SKIN REINSPECTION/REASSESSMENT SKIN INSPECTION: Skin Color: Usual for ethnicity Skin Temperature: Warm Skin Moisture: Normal Skin Turgor: Elastic (normal/immediate) Mady Skin Assessment: The patient's Mady Scale Score is 22. The patient is considered not at risk for development of pressure ulcers/injuries. Sensory perception -- ability to respond meaningfully to pressure-related discomfort No impairment. Moisture -- degree to which skin is exposed to moisture Rarely moist. Activity -- ability to change and control body position Walks frequently. Mobility -- ability to change and control body position No limitation. Nutrition -- usual food intake patterns Adequate. Friction and shear No apparent problem. INTERVENTIONS: No change in previous interventions as listed below Pressure Ulcer-Education 11/06/2024 Educate Importance Of Changing Position Pressure Ulcer-Nutrition 11/06/2024 Encourage Eating And Assist With Meals Monitor Fluid/Food Intake Offer Liquids Q2H When Turning Offer Ordered Supplements Provide/Encourage Oral Care As Needed Tray Set Up And Assistance Pressure Ulcer-Remobilize 11/06/2024 Encourage Activity As Tolerated Vaaes Pressure Injury Interventions 11/05/2024 Araes Pressure Injury Int Not Needed RISK FACTORS THAT INCREASE RISK FOR DEVELOPING PRESSURE INJURIES: The patient/resident has the following: Age over 75 Device(s): (nasogastric tubes, oxygen tubing, urinary catheters, cell phone etc.) Comment: campus monitor, mendoza catheter SKIN ALTERATIONS: Pressure Ulcer/Injury Documentation from the past year: No data available SKIN ALTERATIONS: Wound Documentation from the past year: No data available for: Skin Integrity - Wound Skin Integrity - Wound Second Skin Integrity - Wound Third Skin Integrity - Wound Fourth Skin Integrity - Wound Fifth Skin Integrity - Wound Additional Localized abnormality: Other: Location(s): scab [place], skin cancer head to toe, some removed /es/ DANIELA BABIN RN REGISTERED NURSE Signed: 11/06/2024 23:14 DANIELA BABIN [facility] November 06, 2024 09:35 PM NURSING INPATIENT NOTE: LOCAL TITLE: [facility] ACUTE INPATIENT NSG SHIFT ASSESSMENT STANDARD TITLE: NURSING INPATIENT NOTE DATE OF NOTE: NOVEMBER 06, 2024@21:35 ENTRY DATE: NOVEMBER 06, 2024@23:54:17 AUTHOR: DANIELA BABIN EXP COSIGNER: URGENCY: STATUS: COMPLETED Version 2.2 Charting in accordance with [facility] RINCON STANDARD (WIAES) ACUTE INPATIENT/REHABILITATION NURSING ADMISSION SCREENING, ASSESSMENT, AND STANDARDS OF CARE ASSESSMENT HANDOFF Bedside report and handoff completed Safety check completed PAIN ASSESSMENT Patient's acceptable pain goal: 0 No pain Are you currently experiencing pain? No: Pain Score: 0 DESOUZA FALL SCALE & TIPS PROGRAM Desouza Fall Scale: The Desouza Fall scale was performed and score was 60. This is indicative of high risk for falls. History of falling: immediate or within 3 months? Yes Secondary diagnosis: No Ambulatory aid: None/bedrest/nurse assist Intravenous therapy/Heparin lock: Yes Gait/Transferring: Normal/bed rest/immobile Mental Status: Overestimates/forgets limitations Fall Tailoring Interventions for Patient Safety (TIPS) Fall TIPS initiated with patient: Yes Interventions: Communicate recent fall or risk of harm Toileting schedule frequency established Toileting method: Assist to bathroom Other: mendoza catheter Assistance out of bed: Call for assistance before getting out of bed Fall TIPS reviewed with patient: Yes Interventions: Communicate recent fall or risk of harm Toileting schedule frequency established Toileting method: Assist to bathroom Other: mendoza catheter Assistance out of bed: Call for assistance before getting out of bed ENVIRONMENTAL SAFETY MANAGEMENT Implemented safety standards of care: -Harleigh to unit & environment -Adequate room lighting -Bed in low and locked position -Call light within reach -Personal items within reach -Traffic path in room free of clutter -Non-slip footwear -Upper/half length side rails up for bed mobility -Sensory aids within reach -Encourage patient to utilize sensory support Additional safety measures: Close to nurses station Other: 3:1 sitter at bedside for safety. NEUROLOGICAL Neurological Orientation: Person Place Level of Consciousness (AVPU): Alert = Appears aware of and responsive to the environment on their own. Follows commands, opens eyes spontaneously, and tracks objects. Affect/behavior: Cooperative Calm Evans Agitation Sedation Scale (RASS): 0 Alert and calm ========= ASPIRATION RISK ASSESSMENT AND SWALLOW SCREEN ========= Aspiration Risk(s): Screening complete. No aspiration risk identified. Bedside Swallow Screen not indicated. NEUROMUSCULAR/NEUROVASCULA R EXTREMITIES ASSESSMENT Strength: Gore Stitcher Bilateral: Strong Upper Extremity Bilateral: Full strength Lower Extremity Bilateral: Full strength Sensation: Upper Extremity Sensation Bilateral: Intact Lower Extremity Sensation Bilateral: Intact Temperature: Upper Extremity Temperature Bilateral: Warm Lower Extremity Temperature Bilateral: Warm CARDIOVASCULAR Heart Sounds: Normal (S1S2) Cardiac Rhythm Analysis: Atrial Fibrillation Other: w/RVR Telemetry Transmitter Pack #: [id number] Capillary Refill: All 4 extremities, less than or equal to 3 seconds. Peripheral Pulses: All 4 extremities, 3+ normal. Edema: None Cardiovascular - Embolism Prevention: Comment: [place] RESPIRATORY Respirations: Unlabored Pattern: Regular Breath Sounds Auscultated: Anterior and posterior Left Upper Lobe: Clear Right Upper Lobe: Clear Right Middle Lobe: Clear Left Lower Lobe: Clear Right Lower Lobe: Clear GASTROINTESTINAL Last bowel movement: 11/06/2024 Passing flatus Elimination: Continent Abdominal Description: Rounded Palpation: Soft, Non-tender Bowel Sounds: RUQ: Active LUQ: Active RLQ: Active LLQ: Active GENITOURINARY Color/Characteristic: Clear Yellow Urinary Catheter: Type: Indwelling: Assessment: Type: Urethral: Regular CAUTI Prevention Maintenance Bundle Maintained: - Maintain closed drainage system - Collecting bag below the level of the bladder and remains off the floor - Catheter and collecting tube free from kinking and remains off the floor - Collection bag regularly emptied using a separate, clean collecting container for single patient use; avoiding splashing, and no contact of the drainage spigot with the nonsterile collecting container - Daily periurethral hygiene Catheter secured: Right leg Site Condition: No redness, pain, swelling Indication(s): Acute urinary retention ========= INTEGUMENTARY/SKIN/WOUND - (INCLUDING MADY) SEE NOTE: VAAES SKIN INPECTION/ASSESSMENT ========= ACTIVITIES OF DAILY LIVING Hygiene ADLs: Eating: Independent Foot Care: Inspection Lotion applied Hand Hygiene: Performed post toileting Performed pre meals/snacks Pericare: Indwelling catheter present Soap and water Cleansing product: provon wipes Comment: Patient had his face shaved and took a shower. MOBILITY Mobility Goal Setting: [facility] Level of Mobility: 7 - Walked 25 feet or more (walked outside room) Mobility Status: Minimum assist: Stands with support only (Unsteady or requires verbal cueing) Gait: Steady PSYCHOSOCIAL Type of Emotional Support Provided: 1:1 discussion, Hospitalization discussion, Treatment discussion /es/ DANIELA BABIN RN REGISTERED NURSE Signed: 11/07/2024 00:01 DANIELA BABIN [facility] November 06, 2024 07:17 PM NURSING INPATIENT NOTE: LOCAL TITLE: WIAES ACUTE INPATIENT NSG SHIFT ASSESSMENT STANDARD TITLE: NURSING INPATIENT NOTE DATE OF NOTE: NOVEMBER 06, 2024@19:17 ENTRY DATE: NOVEMBER 06, 2024@19:18:07 AUTHOR: SOULEYMANE RENE COSIGNER: URGENCY: STATUS: COMPLETED Version 2.2 Charting in accordance with [facility] RINCON STANDARD (WIAES) ACUTE INPATIENT/REHABILITATION NURSING ADMISSION SCREENING, ASSESSMENT, AND STANDARDS OF CARE ASSESSMENT HANDOFF Bedside report and handoff completed Safety check completed Comment: sitter PAIN ASSESSMENT Patient's acceptable pain goal: 0 No pain Are you currently experiencing pain? No: DESOUZA FALL SCALE & TIPS PROGRAM Desouza Fall Scale: The Desouza Fall scale was performed and score was 55. This is indicative of high risk for falls. History of falling: immediate or within 3 months? Yes Secondary diagnosis: Yes Ambulatory aid: None/bedrest/nurse assist Intravenous therapy/Heparin lock: No Gait/Transferring: Normal/bed rest/immobile Mental Status: Overestimates/forgets limitations Fall Tailoring Interventions for Patient Safety (TIPS) Fall TIPS initiated with patient: Yes Interventions: Communicate recent fall or risk of harm Toileting schedule frequency established Fall TIPS reviewed with patient: Yes Interventions: Communicate recent fall or risk of harm Toileting schedule frequency established Comment: sitter ENVIRONMENTAL SAFETY MANAGEMENT Implemented safety standards of care: -Harleigh to unit & environment -Adequate room lighting -Bed in low and locked position -Call light within reach -Personal items within reach -Traffic path in room free of clutter -Non-slip footwear -Upper/half length side rails up for bed mobility -Sensory aids within reach -Encourage patient to utilize sensory support Additional safety measures: Close to nurses station Patient health and safety inspector: (Suicidal/Homicidal Ideation) Attendant type: Unlicensed Assistive Personnel at bedside NEUROLOGICAL Neurological Orientation: Person Place Level of Consciousness (AVPU): NEUROMUSCULAR/NEUROVASCULA R EXTREMITIES ASSESSMENT Strength: Gore Stitcher Bilateral: Strong Upper Extremity Bilateral: Full strength Lower Extremity Bilateral: Full strength Sensation: Upper Extremity Sensation Bilateral: Intact Lower Extremity Sensation Bilateral: Intact Temperature: Upper Extremity Temperature Bilateral: Warm Lower Extremity Temperature Bilateral: Warm CARDIOVASCULAR Heart Sounds: Normal (S1S2) Capillary Refill: Comment: would not let nurse assess Peripheral Pulses: R Radial: 3+ Normal L Radial: 3+ Normal R Dorsalis Pedis: L Dorsalis Pedis: R Posterior Tibial: L Posterior Tibial: R Popliteal: L Popliteal: Edema: None Cardiovascular - Embolism Prevention: Comment: RESPIRATORY Respirations: Unlabored Breath Sounds Auscultated: Anterior and posterior Right Upper Lobe: Clear Left Upper Lobe: Clear Right Middle Lobe: Clear Right Lower Lobe: Clear Left Lower Lobe: Clear GASTROINTESTINAL Elimination: Continent Abdominal Description: Distended Palpation: Soft, Non-tender Bowel Sounds: RUQ: Active LUQ: Active RLQ: Active LLQ: Active GENITOURINARY Elimination: Urinary catheter Urinary Catheter: Type: Indwelling: Assessment: Type: Urethral: Regular CAUTI Prevention Maintenance Bundle Maintained: - Maintain closed drainage system - Collecting bag below the level of the bladder and remains off the floor - Catheter and collecting tube free from kinking and remains off the floor - Collection bag regularly emptied using a separate, clean collecting container for single patient use; avoiding splashing, and no contact of the drainage spigot with the nonsterile collecting container - Daily periurethral hygiene Catheter secured: Right leg Site Condition: No redness, pain, swelling Indication(s): Acute urinary retention Neurogenic bladder dysfunction ========= INTEGUMENTARY/SKIN/WOUND - (INCLUDING MADY) SEE NOTE: VAAES SKIN INPECTION/ASSESSMENT ========= ACTIVITIES OF DAILY LIVING Hygiene ADLs: Foot Care: Inspection Oral Care: Non-ventilator patient: Patient dentures/partial plates cleaned: With assistance Swabbing performed-Patient edentulous (lacking teeth) The was educated that poor oral hygiene increases the risk of hospital acquired pneumonia and dental problems like gingivitis and tooth decay. was educated using their preferred method and verbalized understanding. Pericare: Indwelling catheter present Cleansing product: PROVON MOBILITY Mobility Status: Independent: Able to stand and step without staff assistance Steady standing balance Gait: Steady IV LINES PSYCHOSOCIAL Type of Emotional Support Provided: 1:1 discussion, Coping skills discussion, Treatment discussion, Ventilation of feelings encouraged /rody/ DANIELA FERNANDES RN REGISTERED NURSE Signed: 11/06/2024 19:28 SOULEYMANE RENE [facility] November 06, 2024 06:53 PM CARDIOLOGY NOTE: LOCAL TITLE: CARDIOLOGY TELEMETRY STL STANDARD TITLE: CARDIOLOGY NOTE DATE OF NOTE: NOVEMBER 06, 2024@18:53 ENTRY DATE: NOVEMBER 06, 2024@18:53:09 AUTHOR: BRANDAN JIMÉNEZ EXP COSIGNER: URGENCY: STATUS: COMPLETED CARDIOLOGY TELEMETRY STL Has ADDENDA Telemetry reviewed: Atrial Fibrillation, w/RVR BILLING DEPARTMENT SUPERVISOR #: 102 RATE: 80s-120s SHIFT: 3-11 Shift COMMENT: A hard copy of telemtry strip was placed in patient's chart. /rody/ BRANDAN JIMÉNEZ Medical Wood Pattern Maker/EKG Signed: 11/06/2024 18:54 11/06/2024 ADDENDUM STATUS: COMPLETED Pt hr got up to 140s-150s; RNA. Per RN, pt was moving around and walking. /rody/ BRANDAN JIMÉNEZ Medical Wood Pattern Maker/EKG Signed: 11/06/2024 22:22 BRANDAN JIMÉNEZ [facility] November 06, 2024 04:23 PM CARDIOLOGY DIAGNOS TIC STUDY CONSULT: LOCAL TITLE: EKG CONSULT STL STANDARD TITLE: CARDIOLOGY DIAGNOSTIC STUDY CONSULT DATE OF NOTE: NOVEMBER 06, 2024@16:23:19 ENTRY DATE: NOVEMBER 06, 2024@16:23:19 AUTHOR: CLINICAL,DEVICE PRO EXP COSIGNER: URGENCY: STATUS: COMPLETED DOCUMENT IN VISTA IMAGING SEE FULL REPORT IN VISTA IMAGING SIGNATURE NOT REQUIRED SEE SIGNATURE IN VISTA IMAGING (Bentley EKG) AUTO-INSTRUMENT DIAGNOSIS Procedure: [id number] 12 Lead ECG Release Status: Released Off-Line Verified Date Verified: November 06, 2024@16:23:14 78530.2 Ventricular Rate: 161 BPM 33865.5 QRS Duration: 72 ms 02847.6 Q-T Interval: 274 ms 39218 QTC Calculation(Bazett)448 ms 94586.13 Calculated R [place]: -4 degrees 83829.14 Calculated T [place]: 59 degrees Atrial fibrillation with rapid ventricular response Low voltage QRS, consider pulmonary disease, pericardial effusion, or normal variant Nonspecific ST and T wave abnormality Abnormal ECG When compared with ECG of 05-NOV-2024 22:48, Non-specific change in ST segment in Anterior leads Administrative Closure: 11/06/2024 by: CLINICAL,DEVICE PROXY SERVICE CLINICAL,DEVICE PROXY SERVICE [facility] November 06, 2024 04:00 PM CARDIOLOGY DIAGNOS TIC STUDY CONSULT: LOCAL TITLE: EKG CONSULT STL STANDARD TITLE: CARDIOLOGY DIAGNOSTIC STUDY CONSULT DATE OF NOTE: NOVEMBER 06, 2024@16:00:08 ENTRY DATE: NOVEMBER 06, 2024@16:00:08 AUTHOR: CLINICAL,DEVICE PRO EXP COSIGNER: URGENCY: STATUS: COMPLETED DOCUMENT IN VISTA IMAGING SEE FULL REPORT IN VISTA IMAGING SIGNATURE NOT REQUIRED SEE SIGNATURE IN VISTA IMAGING (Bentley EKG) AUTO-INSTRUMENT DIAGNOSIS Procedure: [id number] 12 Lead ECG Release Status: Released Off-Line Verified Date Verified: November 06, 2024@16:00:02 47922.2 Ventricular Rate: 120 BPM 92550.5 QRS Duration: 80 ms 26241.6 Q-T Interval: 328 ms 74781 QTC Calculation(Bazett)463 ms 45802.13 Calculated R [place]: 22 degrees 50749.14 Calculated T [place]: 19 degrees Atrial fibrillation with rapid ventricular response Abnormal ECG When compared with ECG of 17-OCT-2022 15:12, No significant change was found Administrative Closure: 11/06/2024 by: CLINICAL,DEVICE PROXY SERVICE CLINICAL,DEVICE PROXY SERVICE [facility] November 06, 2024 02:50 PM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 Medications Found Life Sustaining Treatment Orders Medications were reviewed with the patient/caregiver and discrepancies resolved. Allergies: SUDAFED, PENICILLIN, ANTIHISTAMINE NASAL DECONGEST, DARVOCET-N Social History: patient not able to tell me on interview Family History: not applicable. Review of Systems: Review of systems reviewed in detail and negative except as noted in HPI. Physical Exam: Vitals: (most recent, as listed in the electronic record): B/P: 101/66 (11/05/2024 19:37) Pulse: 89 (11/05/2024 19:37) Temperature: 98.3 F [36.8 C] (11/05/2024 19:37) Weight: 218.1 lb [98.93 kg] (11/05/2024 19:37) Height: 70 in [177.8 cm] (10/10/2022 13:00) BMI: 31.4 Pain: 0 (10/19/2022 19:55) (0-10 scale) General: NAD, walking around room comfortably Skin: no bruises, no jaundice HEENT: anicteric sclera, EOMI Neck: no JVD Lungs: CTAB, normal effort Cardiovascular: RRR Abdominal: ND, NT, BS+ Rectal: defer : mendoza in place Extremities: no edema Musculoskeletal: ROM intact, can move left hand Neuro: AOx2, no focal deficits Psych: at baseline Labs: CBC: WBC 11.1 10*3/uL 11/05/2024 20:34 RBC 5.73 H 10*6/uL 11/05/2024 20:34 HGB 16.2 g/dL 11/05/2024 20:34 HCT 50.2 H % 11/05/2024 20:34 MCV 87.6 fL 11/05/2024 20:34 MCH 28.3 pg 11/05/2024 20:34 MCHC 32.3 L g/dL 11/05/2024 20:34 RDW 15.1 % 11/05/2024 20:34 PLT 336 10*3/uL 11/05/2024 20:34 MPV 9.9 fL 11/05/2024 20:34 NEUTROPHILS, AUTO % 69 % 11/05/2024 20:34 LYMPHOCYTES, AUTO % 17 % 11/05/2024 20:34 MONOCYTES, AUTO % 8 % 11/05/2024 20:34 EOSINOPHILS, AUTO % 5 % 11/05/2024 20:34 BASOPHILS, AUTO % 1 % 11/05/2024 20:34 NEUTROPHILS, ABSOLUTE 7.58 10*3/uL 11/05/2024 20:34 LYMPHOCYTES, ABSOLUTE 1.92 10*3/uL 11/05/2024 20:34 MONOCYTES, ABSOLUTE 0.91 H 10*3/uL 11/05/2024 20:34 EOSINOPHILS, ABSOLUTE 0.50 10*3/uL 11/05/2024 20:34 BASOPHILS, ABSOLUTE 0.07 10*3/uL 11/05/2024 20:34 CMP: SODIUM 136 mEq/L 11/05/2024 20:34 POTASSIUM 5.3 H mEq/L 11/05/2024 20:34 CHLORIDE 97 L mEq/L 11/05/2024 20:34 UREA NITROGEN 19.8 mg/dL 11/05/2024 20:34 CREATININE 1.02 mg/dL 11/05/2024 20:34 CALCIUM 9.5 mg/dL 11/05/2024 20:34 PROTEIN 6.4 g/dL 11/05/2024 20:34 ALBUMIN 3.6 g/dL 11/05/2024 20:34 ALKALINE PHOSPHATASE 72 U/L 11/05/2024 20:34 ALT/SGPT 23 U/L 11/05/2024 20:34 AST/SGOT 30 U/L 11/05/2024 20:34 TOTAL BILIRUBIN 0.5 mg/dL 11/05/2024 20:34 CARBON DIOXIDE 30 mEq/L 11/05/2024 20:34 GLUCOSE 148 H mg/dL 11/05/2024 20:34 EGFR (CKD-EPI 2020) 73.8 11/05/2024 20:34 TROPONIN: No TROPONIN EO data found U/A: No URINALYSIS EO data found PT/INR: ____ PTT: ____ Imaging: Impression for CHEST PORTABLE, 10/17/22, case 1654 No acute pulmonary disease. Assessment/Plan: 79 yo pmhx of Alzheimers dementia (AOx2 at baseline), HFrEF, Afib who initially presented to OSH for AMS and UTI now transferred to [facility] for placement. #Acute encephalopathy - resolved #Alzheimer dementia - AMS likely 2/2 UTI vs. hospital delirium but now back to baseline per chart reiview - Home meds: donepezil 5mg daily - CTH OSH: left MCA sign - Neuro consulted. Recommend doppler and Vit D/Folic/B12/TSH/UDS which were were all normal. Continued donepezil and initated on seroqel and memantine at [place]. Required IM haldol at times for severe agitation. Plan: - Continue donepezil, memantine, seroquel - Family no longer able to take care of patient per chart review and interested in placement. Will call family to corroborate and discuss w/ SW for assistance. #UTI - resolved #Urinary retention s/p mendoza - OSH VSS. WBC 10. UA +LE, +blood, +WBC. No UCX. - Initiated on ceftriaxone then transitioned to cefdinir 10/20-10/26 - Bladder scans were c/f urinary retention, despite initial refusal patient eventually got a mendoza placed (still present on arrival here) w/ urology to follow up outpatient. Continued on home tamsulosin. Etiology 2/2 BPH vs. medication induced. Plan: - Has completed UTI tx at OSH - Continue home tamsulon 0.4mg - Continue mendoza. Can consider void trial. - Urology outpatient. #HFrEF - Medications unclear, separate med list at [place] and home meds list. Pt not able to state what medications he is on. - [facility] meds: Metop tartrate 37.5 BID, entresto - Home meds: digoxin 0.125, metop succinate 100 daily, spironolactone 25mg daily, lasix 40mg daily - Pt euvolemic on exam Plan: - Discuss with family and [facility] for medication reconciliation - Continue metop tartrate 37.5 BID, entresto #Afib - Home meds: metop succinate 100mg but at [place] switched to metop tartate 37.5 BID. Not on AC per chart review - EKG reports at [place] erson show patient still in afib Plan: - EKG - Tele - Continue metop tartrate as mentioned above - Will discuss with family need for AC as CHADsVASC >2 #Emphysema - not on home inhalers, ctm #Hx of skin cancer - ctm Code: Full Diet: Regular diet DVT: lovenox daily Dispo: Discuss with family and SW about placement. F/u mendoza management Is the patient 65 or older? Yes Is the patient displaying signs of delirium? No Does the patient have a change in their mental status? No Is the patient displaying signs of confusion? Yes Is the patient displaying signs of disorientation? Yes This patient was screened for delirium. His/Her current risk level for delirium is : moderate The material part of the above assessment and plans was discussed with the patient and/or his/her family members who agreed and had no further questions. Total time spent: 20 Minutes /jessica Stevens MD Resident Physician Signed: 11/05/2024 23:02 /rody/ POPEYE DIALLO MD PhD STAFF PHYSICIAN Cosigned: 11/07/2024 11:14 11/07/2024 ADDENDUM STATUS: COMPLETED The was seen, examined, and discussed at length with the resident physician. Relevant labs, imaging studies, and past medical records were reviewed. I agree with the assessment and plan as described in the resident's note. /rody/ POPEYE DIALLO MD PhD STAFF PHYSICIAN Signed: 11/07/2024 11:14 MICH STEVENS [facility] Nov 05, 2024 07:18 PM NURSING INPATIENT NOTE: LOCAL TITLE: [facility] ACUTE INPATIENT NSG SHIFT ASSESSMENT STANDARD TITLE: NURSING INPATIENT NOTE DATE OF NOTE: NOV 05, 2024@19:18 ENTRY DATE: NOV 05, 2024@19:18:22 AUTHOR: ESTEPHANIE LOZANO COSIGNER: URGENCY: STATUS: COMPLETED Version 2.2 Charting in accordance with [place] APPROVED RINCON STANDARD (WIAES) ACUTE INPATIENT/REHABILITATION NURSING ADMISSION SCREENING, ASSESSMENT, AND STANDARDS OF CARE ASSESSMENT DESOUZA FALL SCALE & TIPS PROGRAM Desouza Fall Scale: The Desouza Fall scale was performed and score was 65. This is indicative of high risk for falls. History of falling: immediate or within 3 months? No Secondary diagnosis: Yes Ambulatory aid: Crutches/cane(s)/walker Intravenous therapy/Heparin lock: No Gait/Transferring: Impaired Mental Status: Overestimates/forgets limitations Fall Tailoring Interventions for Patient Safety (TIPS) Fall TIPS initiated with patient: Yes Interventions: Communicate recent fall or risk of harm Walking Aids: Walker Fall TIPS reviewed with patient: Yes Interventions: Communicate recent fall or risk of harm Walking Aids: Walker ENVIRONMENTAL SAFETY MANAGEMENT Implemented safety standards of care: -Harleigh to unit & environment -Adequate room lighting -Bed in low and locked position -Call light within reach -Personal items within reach -Traffic path in room free of clutter -Non-slip footwear -Upper/half length side rails up for bed mobility -Sensory aids within reach -Encourage patient to utilize sensory support Additional safety measures: Therapeutic Log P[place] Worker: Therapeutic/Telecare [place] P[place] Worker criteria: Change in mental status, impulsivity Elopement risk/wandering General safety concerns [place] P[place] Worker type: Unlicensed Assistive Personnel at bedside NEUROLOGICAL Neurological Orientation: Person Situation Level of Consciousness (AVPU): Alert = Appears aware of and responsive to the environment on their own. Follows commands, opens eyes spontaneously, and tracks objects. ========= ASPIRATION RISK ASSESSMENT AND SWALLOW SCREEN ========= Aspiration Risk(s): Screening complete. No aspiration risk identified. Bedside Swallow Screen not indicated. NEUROMUSCULAR/NEUROVASCULA R EXTREMITIES ASSESSMENT Strength: Gore Stitcher Bilateral: Strong Upper Extremity Bilateral: Full strength Lower Extremity Bilateral: Full strength Sensation: Upper Extremity Sensation Bilateral: Intact Lower Extremity Sensation Bilateral: Intact Temperature: Upper Extremity Temperature Bilateral: Warm Lower Extremity Temperature Bilateral: Warm CARDIOVASCULAR Heart Sounds: Normal (S1S2) Heart Rate/Rhythm (without awake overnight monitor): Regular Capillary Refill: All 4 extremities, less than or equal to 3 seconds. Peripheral Pulses: All 4 extremities, 3+ normal. Edema: None RESPIRATORY Respirations: Unlabored Pattern: Regular Breath Sounds Auscultated: Anterior and posterior Left Upper Lobe: Clear Right Upper Lobe: Clear Right Middle Lobe: Clear Left Lower Lobe: Clear Right Lower Lobe: Clear GASTROINTESTINAL Last bowel movement: 11/05/2024 Passing flatus Elimination: Continent Abdominal Description: Rounded Palpation: Soft, Non-tender Bowel Sounds: RUQ: Active LUQ: Active RLQ: Active LLQ: Active GENITOURINARY Urinary Catheter: Type: Indwelling: Assessment: Type: Urethral: Regular CAUTI Prevention Maintenance Bundle Maintained: - Maintain closed drainage system - Collecting bag below the level of the bladder and remains off the floor - Catheter and collecting tube free from kinking and remains off the floor - Collection bag regularly emptied using a separate, clean collecting container for single patient use; avoiding splashing, and no contact of the drainage spigot with the nonsterile collecting container - Daily periurethral hygiene Site Condition: No redness, pain, swelling Indication(s): Acute urinary retention ========= INTEGUMENTARY/SKIN/WOUND - (INCLUDING MADY) SEE NOTE: VAAES SKIN INPECTION/ASSESSMENT ========= ACTIVITIES OF DAILY LIVING Hygiene ADLs: Hand Hygiene: Performed post toileting Performed pre meals/snacks Oral Care: Non-ventilator patient: Swabbing performed-Patient edentulous (lacking teeth) The was educated that poor oral hygiene increases the risk of hospital acquired pneumonia and dental problems like gingivitis and tooth decay. Marcus was educated using their preferred method and verbalized understanding. Oral Mucositis Scale: Oral mucositis (clinical exam): Grade 1 = Erythema of the mucosa Oral mucositis (functional/symptomatic): Grade 1 = Minimal symptoms, normal diet MOBILITY Mobility Status: Independent: Able to stand and step without staff assistance Steady standing balance Equipment utilized: Walker Gait: Steady PSYCHOSOCIAL Type of Emotional Support Provided: 1:1 discussion, Ventilation of feelings encouraged /es/ ESTEPHANIE LOZANO RN Registered Nurse Signed: 11/05/2024 19:28 ESTEPHANIE LOZANO [facility] Nov 05, 2024 07:14 PM NURSING TREATMENT PLAN NOTE: LOCAL TITLE: JOSE PLAN OF CARE STANDARD TITLE: NURSING TREATMENT PLAN NOTE DATE OF NOTE: NOV 05, 2024@19:14 ENTRY DATE: NOV 05, 2024@19:15:36 AUTHOR: ESTEPHANIE LOZANO EXP COSIGNER: URGENCY: STATUS: COMPLETED JOSE PLAN OF CARE Has ADDENDA Plan of Care and Discharge Plan (nurse) TREATMENT PLAN Significant other involved in treatment plan and discharge planning Yes Patient involved in making decisions about their care, treatment and plan for discharge No Date: AMS Is the patient a fall risk? Yes. NURSING DIAGNOSIS: Falls Potential/Actual Injury Goals: Prior to discharge, patient will:--Injury due to fall will be minimized during hospital stay, --Verbalize safety measures to lower risk of fall/injury (lock w/c, use hand rails, ask for assistance) Oct, --Identify factor(s) that may increase risk of fall before discharge, --Maintain or preserve physical mobility during hospital stay NURSING DIAGNOSIS: Thought Process, Actual/Potential Goal: *Prior to discharge, patient will:--Sustain no harm or injury., --Control inpulsive behavior dictated by altered perception., --Participate in ADLs and activities to the extent possible., --Maintain prescribed medication regimen. Interventions: --Dtermine amount of control patient has over hallucinations., --Encourage reality testing., --Monitor and assist with ADLs., --Interupt pyschotic behavior and involve patient in reality based activities., --Offer PRN medications when indicated., --Maintain prescribed medication regimen. Care plan status: Continued Progress toward goals documented continuously through progress notes Patient Education Instruct about: /rody/ ESTEPHANIE LOZANO RN Registered Nurse Signed: 11/05/2024 19:18 11/06/2024 ADDENDUM STATUS: COMPLETED 0105 Patient remains free from falls. /rody/ DANIELA BABIN RN REGISTERED NURSE Signed: 11/06/2024 01:06 11/07/2024 ADDENDUM STATUS: COMPLETED 0001 Patient remains free from falls. /rody/ DANIELA BABIN RN REGISTERED NURSE Signed: 11/07/2024 00:01 11/08/2024 ADDENDUM STATUS: COMPLETED 0113 Patient remains free from falls. /es/ DANIELA BABIN RN REGISTERED NURSE Signed: 11/08/2024 01:14 11/11/2024 ADDENDUM STATUS: COMPLETED The Nursing Care Plan has been reviewed. Progress on the Goals/Outcomes is as follows: Continue with plan of care. Pt remains free from injury. bed in low and locked position. Pt assisted with ADL's as needed. Sitter at bedside. Discharge Planning: Assessment of patient/family's ability to manage care requirement post-discharge: FAIR Need identified at this time for referrals/resources post-discharge: YES Comment: /es/ LILLY FERNANDES RN REGISTERED NURSE Signed: 11/11/2024 00:45 11/12/2024 ADDENDUM STATUS: COMPLETED NURSING DIAGNOSIS: Falls Potential/Actual Injury Goals: Prior to discharge, patient will:--Injury due to fall will be minimized during hospital stay, --Verbalize safety measures to lower risk of fall/injury (lock w/c, use hand rails, ask for assistance) Oct, --Identify factor(s) that may increase risk of fall before discharge, --Maintain or preserve physical mobility during hospital stay NURSING DIAGNOSIS: Thought Process, Actual/Potential Goal: *Prior to discharge, patient will:--Sustain no harm or injury., --Control inpulsive behavior dictated by altered perception., --Participate in ADLs and activities to the extent possible., --Maintain prescribed medication regimen. Interventions: --Dtermine amount of control patient has over hallucinations., --Encourage reality testing., --Monitor and assist with ADLs., --Interupt pyschotic behavior and involve patient in reality based activities., --Offer PRN medications when indicated., --Maintain prescribed medication regimen. Care plan status: Continued /es/ ELLIS RAMOS RN REGISTERED NURSE Signed: 11/12/2024 00:35 ESTEPHANIE LOZANO [facility] Nov 05, 2024 07:09 PM NURSING NOTE: LOCAL TITLE: [facility] SKIN INSPECTION/ASSESSMENT STANDARD TITLE: NURSING NOTE DATE OF NOTE: NOV 05, 2024@19:09 ENTRY DATE: NOV 05, 2024@19:09:38 AUTHOR: ESTEPHANIE LOZANO COSIGNER: URGENCY: STATUS: COMPLETED Assessment Type: INITIAL SKIN INSPECTION/ASSESSMENT SKIN INSPECTION: Skin Color: Usual for ethnicity Skin Temperature: Warm Skin Moisture: Normal Skin Turgor: Elastic (normal/immediate) Mady Skin Assessment: The patient's Mady Scale Score is 19. The patient is considered not at risk for development of pressure ulcers/injuries. Sensory perception -- ability to respond meaningfully to pressure-related discomfort Very limited. Moisture -- degree to which skin is exposed to moisture Rarely moist. Activity -- ability to change and control body position Walks frequently. Mobility -- ability to change and control body position No limitation. Nutrition -- usual food intake patterns Probably inadequate. Friction and shear No apparent problem. INTERVENTIONS: The pressure injury interventions were not needed - patient/resident is not at risk. RISK FACTORS THAT INCREASE RISK FOR DEVELOPING PRESSURE INJURIES: The patient/resident has the following: Age over 75 SKIN ALTERATIONS: Pressure Ulcer/Injury Documentation from the past year: No data available SKIN ALTERATIONS: Wound Documentation from the past year: No data available for: Skin Integrity - Wound Skin Integrity - Wound Second Skin Integrity - Wound Third Skin Integrity - Wound Fourth Skin Integrity - Wound Fifth Skin Integrity - Wound Additional Localized abnormality: Rash: Location: over entire body Generalized Hx: skin CA /es/ ESTEPHANIE LOZANO RN Registered Nurse Signed: 11/05/2024 19:14 ESTEPHANIE LOZANO [facility] Nov 05, 2024 07:03 PM NURSING ADMISSION EVALUATION NOTE: LOCAL TITLE: [facility] ACUTE INPATIENT NSG ADMISSION SCREEN STANDARD TITLE: NURSING ADMISSION EVALUATION NOTE DATE OF NOTE: NOV 05, 2024@19:03 ENTRY DATE: NOV 05, 2024@19:03:25 AUTHOR: ESTEPHANIE LOZANO COSIGNER: URGENCY: STATUS: COMPLETED UNABLE TO OBTAIN ADMISSION SCREENING AT THIS TIME: Patient medically/cognitively unstable: Specify: cogitivley unstable ========= ALLERGY/ADVERSE DRUG REACTION (ADR) REVIEW (MRT5) ========= FACILITY ALLERGY/ADR -------- [facility] PENICILLIN [facility] PSEUDOEPHEDRINE [facility] ANTIHISTAMINE NASAL [facility]ON[facility]ST [facility] DARVOCET-N [facility] PENICILLIN [facility] SUDAFED Allergy/Adverse Drug Reaction Review to be conducted by: Other: Allergy review by: in chart ======== MEDICATION REVIEW (MRR1) ======== Did patient bring medication(s) from home? No Medication Review to be conducted by in chart ======== GENERAL INFORMATION ======== Admission information given by: Other: report from previous hospital Is there a legal guardian/conservator? Unknown Preferred language for discussing healthcare: Syriac Preferred mode of communication: Verbal Sensory Deficits & Contributing Information: Hearing deficit: Bilateral Items at Bedside: None ========= INFECTIOUS DISEASE RISK SCREEN ========= Travel Screen: Have you traveled within the [place] within the last 21 days? Unable to answer Have you traveled outside the [place] within the last 21 days? Unable to answer Within the last 14 days, have you had: No known exposure Other Exposure to Infectious Disease: No known exposure Patient reported the following symptoms: No Symptoms Present History of Multiple Drug Resistant Organism (MDRO): Unable to answer ========= RISK OF WANDERING ========= The patient has a history of wandering. The patient does not have a history of elopement. The patient is not expressing a desire to leave. Comments: liya came from [facility] ========= ASPIRATION RISK ASSESSMENT AND SWALLOW SCREEN ========= Aspiration Risk(s): Screening complete. No aspiration risk identified. Bedside Swallow Screen not indicated. /rody/ ESTEPHANIE LOZANO RN Registered Nurse Signed: 11/05/2024 19:09 ESTEPHANIE LOZANO [facility] Nov 05, 2024 06:57 PM NURSING NOTE: LOCAL TITLE: JOSE PROGRESS NOTE STL STANDARD TITLE: NURSING NOTE DATE OF NOTE: NOV 05, 2024@18:57 ENTRY DATE: NOV 05, 2024@18:57:15 AUTHOR: ESTEPHANIE LOZANO EXP COSIGNER: URGENCY: STATUS: COMPLETED Arrived via stretcher, condition stable, alert x 1-2, able to ambulate with wheeled walker without difficulty, is very impulsive and is walking up and down the hallways. is [place], no hearing aides with patient. Will start assessment and complete as much as possible. /rody/ ESTEPHANIE LOZANO RN Registered Nurse Signed: 11/05/2024 19:03 ESTEPHANIE LOZANO [facility] Nov 05, 2024 06:44 PM ADMINISTRATIVE NOT E: LOCAL TITLE: ADMINISTRATIVE STL STANDARD TITLE: ADMINISTRATIVE NOTE DATE OF NOTE: NOV 05, 2024@18:44 ENTRY DATE: NOV 05, 2024@18:44:42 AUTHOR: AURELIA MORENO EXP COSIGNER: URGENCY: STATUS: COMPLETED WAS NOTIFIED THAT THE PATIENT IS ON 7 NORTH IN ROOM 760-1 /jessica MORENO [employer] Signed: 11/05/2024 18:45 Receipt Acknowledged By: 11/05/2024 22:56 /rody/ AURELIA BULL [facility]
--- OUTSIDE RECORDS SUMMARY | 2025-02-12 21:24 | XMS_ITS | Continuity of Care Document ---
Author Organization [facility], L TD Address [address] [place] [address] Phone Care Team Providers Care [employer] Nurse Name Role Phone Taj Paiz MD Unavailable [...] Diagnoses Date Provider Providers Copied on Encounter [facility], [address] [place] [address], [id number] , tel:[phone] [facility] No Information 4 Chencho Vang. [address] [place] [address], [id number], [place]. tel:[phone] [facility], [address] [place] [address], [id number] , [place] tel:[phone] [facility] No Information 4 Chencho Vang. [address] [place] [address], [id number], [place]. tel:[phone] [facility], [address] [place] [address], [id number] , tel:[phone] [facility] Age-related nuclear cataract, left eyePresence of intraocular lensDry eye syndrome of bilateral lacrimal glandsRegular astigmatism, bilateralPresb yopiaHypermetr opia, right eyeMyopia, left eye 4 Nhan Peguero. [address], [place], [place], [id number], [place]. tel:[phone] Referring Provider: Marielena Field, [address], [place], [address]. [phone] [facility], [facility], [address] [place] [address], [id number] , [place] tel:[phone] [facility] redness OD (chief complaint) Cataract extraction status, right eyePresence of intraocular lensSecondary corneal edema, right eye 4 Dian Mccormick. [address] [place] [address], [id number], [place]. tel:[phone] Referring Provider: Jace Field, [address] [place] [address], [id number]. tel:[phone] [facility], [facility], [address] [place] [address], [id number] , [place] tel:[phone] [facility] PO 1 day cat Sx (chief complaint) Cataract extraction status, right eye 4 Nhan Peguero. [address], [place], [place], [id number], [place]. [phone] Referring Provider: Marielena Field, [address], [place], [address]. [phone] [facility], [facility], [address] [place] [address], [id number] , [place] tel:[phone] [facility], [facility] No Information 4 Chencho Vang. [address] [place] [address], [id number], [place]. tel:[phone] Referring Provider: Taj Otto, [address] [place] [address], [id number]. tel:[phone] [facility], [address] [place] [address], [id number] , tel:[phone] [facility] No Information 4 Chencho Taj. [address] [place] [address], [id number], . tel:[phone] Referring Provider: Jigna Yu, [facility] [address] [place], [address]. [phone] [facility], [address] [place] [address], [id number] , tel:[phone] [facility]- cataract evaluation (chief complaint) Myopia, bilateralRegul ar astigmatism, bilateralPresb yopia 3 Chencho Vang. [address] [place] [address], [id number], . tel:[phone] Referring Provider: Taj Otto, [address] [place] [address], [id number]. tel:[phone] Family History Family Member Type Diagnosis Age [...] Cataract sx OS and was sent from [facility] for redness OD. [facility], [...]
[2025-02-12 23:04] LABS: Add Urine Microscopic? NO; Appearance Urine Clear (Clear); Glucose Urine UA Negative (Negative); Leukocyte Esterase Ur Negative LEU/UL (Negative); Nitrate Urine Negative (Negative); Specific Grav Ur 1.019 (1.001-1.035)
[2025-02-12] MEDS: ACETAMINOPHEN 500 MG TABLET 1000 MG PO (23:30)
== END 2025-02-12 23:25 | disposition home or self-care (01) ==
PROVIDERS: Emergency Provider Student in an Organized Health Care Education/Training Program
DX: I87.8 Other specified disorders of veins (principal); S80.211A Abrasion, right knee, initial encounter; N17.9 Acute kidney failure, unspecified; R60.0 Localized edema; M17.11 Unilateral primary osteoarthritis, right knee; M50.30 Other cervical disc degeneration, unspecified cervical region; I50.20 Unspecified systolic (congestive) heart failure; G30.9 Alzheimer's disease, unspecified; F02.80 Dementia in other diseases classified elsewhere, unspecified severity, without behavioral disturbance, psychotic disturbance, mood disturbance, and anxiety; Z96.652 Presence of left artificial knee joint; Z87.891 Personal history of nicotine dependence; Z79.899 Other long term (current) drug therapy; W01.0XXA Fall on same level from slipping, tripping and stumbling without subsequent striking against object, initial encounter
CPT/HCPCS: 36415; 70450; 71045; 72125; 73562; 80053; 81003; 82550; 83605; 83880; 85025; 85652; 86140; 93005; 93970; 96360; 96361; 99284; A9270; J7040